=== PATIENT | female | born 1970 | race Caucasian/White ===

== ENCOUNTER 2019-12-12 02:35 | Emergency (ER) | payer MEDICAID, SELFPAY ==
[2019-12-12 02:38] VITALS: BMI 50.8
--- NOTE | 2019-12-12 02:39 | ECG_ITS ---
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 Measurements Intervals [place] Rate: 108 P: 46 IL: 147 QRS: 20 QRSD: 93 T: 37 QT: 307 QTc: 412 Interpretive Statements SINUS TACHYCARDIA NONSPECIFIC ST & T-WAVE ABNORMALITY ABNORMAL RHYTHM ECG Compared to ECG 08/08/2018 19:18:59 T-wave abnormality now present ST (T wave) deviation no longer present Electronically Signed On 12-12-2019 8:45:46 CDT by Paul Harkins M.D. [id number]
--- NOTE | 2019-12-12 02:39 | XRR_ITS ---
PROCEDURE INFORMATION: Exam: XR Chest, 1 View Exam date and time: 12/12/2019 3:34 AM Age: 49 years old Clinical indication: Shortness of breath; Chest pain; Type not specified; Additional info: Cp TECHNIQUE: Imaging protocol: XR of the chest Views: 1 view. COMPARISON: No relevant prior studies available. FINDINGS: Lungs: Unremarkable. No consolidation. Pleural space: Unremarkable. No pleural effusion. No pneumothorax. Heart/Mediastinum: Unremarkable. No cardiomegaly. Bones/joints: Unremarkable. XR/XR chest 1V portable [id number] IMPRESSION: No acute findings.
[2019-12-12 02:42] VITALS: BP 124/67; PULSE 107; RESP 16; TEMP 37; O2SAT 97
[2019-12-12 03:22] LABS: Basophils # 0.1 10^3/uL (0.0-0.1); Basophils % 0.5 %; Eosinophils # 0.1 10^3/uL (0.0-0.8); Eosinophils % 0.8 %; Hematocrit 32.9 % (37.0-47.0); Hemoglobin 9.5 g/dL (11.5-15.3); Lymphocytes % 14.8 %; Mean Corpuscular HGB Conc 28.9 g/dL (30.0-36.0); Mean Corpuscular Volume 76.2 fL (81-99); Monocytes # 0.6 10^3/uL (0.2-0.9); Monocytes % 4.6 %; Neutrophils # 10.7 10^3/uL (1.8-7.7); Neutrophils % 78.6 %; Nucleated Red Blood Cells % 0 %; Platelet Count 422 10^3/cmm (130-400); Red Blood Count 4.32 10^6/uL (4.1-5.3); Red Cell Distribution Width 18.5 % (12.1-15.1); White Blood Count 13.6 10^3/uL (4.0-10.0)
[2019-12-12] MEDS: ondansetron 2 mg/ML SDV 2 mL 4 MG IVP (03:28)
[2019-12-12 03:29] VITALS: RESP 16; O2SAT 99
[2019-12-12] MEDS: morphine 4 mg/mL SDV 1 mL IVP (03:29)
[2019-12-12 03:32] LABS: D Dimer 0.58 ug/mIFEU (0-0.59)
[2019-12-12 03:36] LABS: Alanine Aminotransferase 10 U/L (0-33); Albumin Level 3.9 g/dL (3.5-5.2); Alkaline Phosphatase 119 IU/L (35-105); Anion Gap 18.9 (5-19); Aspartate Amino Transferase 10 U/L (0-32); Blood Urea Nitrogen 9 mg/dL (6-20); Calcium 9.4 mg/dL (8.5-10.5); Carbon Dioxide 25 mmol/L (22-29); Chloride 96 mmol/L (98-107); Creatine Phosphokinase 48 U/L (26-192); Globulin 2.8 g/dL (1.3-4.6); Glomerular Filtration Rate 58.9 mL/min (90-130); Glucose 149 mg/dL (65-115); Osmolality Calculated 281 mOsm/kg (285-295); Potassium 3.9 mmol/L (3.5-5.1); Sodium 136 mmol/L (136-145); Total Bilirubin 0.3 mg/dL (0.15-1.2); Total Protein 6.7 g/dL (6.6-8.7)
[2019-12-12 03:38] LABS: Troponin(5th) Baseline 12 ng/L (0-10)
[2019-12-12 03:39] VITALS: BP 99/73; PULSE 102; RESP 18; O2SAT 96
--- NOTE | 2019-12-12 04:24 | CTR_ITS ---
PROCEDURE INFORMATION: Exam: CT Angiography Chest With Contrast Exam date and time: 12/12/2019 4:26 AM Age: 49 years old Clinical indication: Shortness of breath; Chest pain; Type not specified TECHNIQUE: Imaging protocol: Computed tomographic angiography of the chest with intravenous contrast. 3D rendering: MIP and/or 3D reconstructed images were created by the technologist. Radiation optimization: All CT scans at this facility use at least one of these dose optimization techniques: automated exposure control; mA and/or kV adjustment per patient size (includes targeted exams where dose is matched to clinical indication); or iterative reconstruction. Contrast material: VISI; Contrast volume: 86 ml; Contrast route: INTRAVENOUS (IV); COMPARISON: CR XR chest 1V portable [id number] 12/12/2019 3:24 AM RADIATION DOSE METRICS: Total DLP (mGy-cm): 1337.65 FINDINGS: Pulmonary arteries: Normal. No pulmonary emboli. Aorta: Unremarkable. No aortic aneurysm. No aortic dissection. Thyroid: There is a 7 mm hypoattenuation lesions seen within the left thyroid lobe likely representing a small colloid cyst. Lungs: There is a calcified granuloma seen in the left lung base laterally. A 2nd calcified granuloma seen in the right posterior costophrenic recess medially. Pleural space: Unremarkable. No pneumothorax. No pleural effusion. Heart: Unremarkable. No cardiomegaly. No pericardial effusion. Lymph nodes: Unremarkable. No enlarged lymph nodes. Gallbladder and bile ducts: Status post cholecystectomy. Bones/joints: Unremarkable. No acute fracture. Soft tissues: Unremarkable. CT/CT angio chest PE protcl [id number] IMPRESSION: 1. There is no evidence for pulmonary emboli. 2. There are no acute chest findings. 3. Probable benign 7 mm colloid cyst within the left thyroid lobe. No further workup needed. COMMENTS: Consistent with the [employer]'s Incidental Findings Committee white paper (J Am Vaughn Radiol 2015): In patients aged 35 years and older with an incidental thyroid nodule equal to or greater than 1.[address], MRI or extrathyroidal US, further evaluation with dedicated thyroid US is recommended for patients with normal life expectancy and without comorbidities. For smaller nodules without suspicious features, no further evaluation or follow up is recommended. Radiation Dose CTDIVOL = (mGy): DLP = 1337.65 (mGy-cm)
[2019-12-12 04:32] VITALS: BP 131/63; PULSE 103; RESP 18; O2SAT 96
[2019-12-12] MEDS: iodixanol 320 mg/mL 100mL Btl IV (04:34)
[2019-12-12 05:03] LABS: Troponin 5 2HR 11.86 ng/L (0-10)
[2019-12-12 05:10] LABS: Troponin 5 2HR Delta -0.14 ABS# (0-10)
[2019-12-12] MEDS: sodium chloride 0.9% 1,000 ML 999 ML IV (05:23)
[2019-12-12 05:27] VITALS: BP 117/75; PULSE 98; RESP 16; O2SAT 94
[2019-12-12 06:16] VITALS: BP 111/61; PULSE 86; RESP 18; O2SAT 94
--- NOTE | 2019-12-13 17:22 | W.ED.CHESTPA ---
HPI - Chest Pain General: Chief Complaint: Chest Pain Stated Complaint: CP Time Seen by Provider: 12/12/19 02:39 History of Present Illness: HPI narrative: 49-year-old female. She does have a history of hypertension and diabetes. She has no prior history of coronary disease. She was started on Provigil a couple of days ago by her primary care physician for a complaint of sleeping 20 hours a day. She developed chest pain the next day. She has a fluttering feeling in her chest as well. Some shortness of breath. I believe she has had 3 doses. MD complaint: chest pain and chest discomfort Prior episodes: No Onset: during rest Pain location: substernal and right chest Pain radiation: none, right shoulder and other Quality: tightness and heaviness Relieving factors: nothing Exacerbating factors: nothing Associated symptoms: Reports dyspnea and palpitations; Deny abdominal pain or fever(s) Review of Systems Const: Denies: fever(s) Eyes: Denies: change in vision ENMT: Denies: swelling of lips/tongue, change in hearing or sinus pain Card: Reports: chest pain, palpitations and swelling of feet/ankles; Denies: irregular heart rhythm, edema, dyspnea on exertion or orthopnea Resp: Reports: dyspnea GI: Denies: abdominal pain : Denies: dysuria or hematuria Musc: Reports: back pain; Denies: neck pain or joint warmth Skin/Breast: Denies: rash, pruritus or erythema Neuro: Denies: headache(s), dizziness or vertigo Psych: Reports: anxiety PFSH ED PFSH: Medical History (Updated 12/12/19 @ 05:54 by Kelton Silva DO) Chronic post-traumatic stress disorder Generalized anxiety disorder Hypersomnia Major depressive disorder, recurrent, severe with psychotic symptoms Sleep apnea treated with nocturnal BiPAP Social History (Updated 08/12/19 @ 11:47 by Phuong Centeno LPN) Smoking and tobacco status: never smoked Current gender identity: Female Physical Exam Const: GENERAL APPEARANCE: well developed ORIENTATION/CONSCIOUSNESS: Yes oriented to person, Yes oriented to place and Yes oriented to time HENMT: COMMON NORMALS: normocephalic, external ears normal and Normal external nose present HEAD & SCALP: normocephalic FACE & SINUS: normal facial exam NOSE: Normal external nose present and No nasal discharge present EXTERNAL EAR: Yes external ears normal MOUTH: tongue normal Eye: COMMON NORMALS: Equal, round and reactive pupils present, EOMs intact bilaterally and conjunctivae normal EYELID: eyelids normal CONJUNCTIVA: Yes conjunctivae normal PUPIL: Yes Equal, round and reactive pupils present Neck/C-Spine: GENERAL: No tracheal deviation Chest: COMMONS NORMALS: normal inspection of the chest CHEST: No tenderness Resp: COMMON NORMALS: clear to auscultation bilaterally EFFORT & INSPECTION: No tachypneic, No respiratory distress, No retractions, No uses accessory muscles and No tracheal deviation AUSCULTATION: clear to auscultation bilaterally, no rhonchi, no wheezes and lung sounds not diminished Cardio: COMMON NORMALS: regular rhythm RATE: tachycardic RHYTHM: regular rhythm HEART SOUNDS: no murmurs PERIPHERAL PULSES: radial pulses present GI: INSPECTION: No abdominal distension AUSCULTATION: No Hyperactive bowel sounds present and No Hypoactive bowel sounds present PALPATION: No Guarding due to palpation present (GI) and No Rigid due to palpation PERCUSSION: no dullness to percussion and no tympanic to percussion Neuro: SENSORIUM/ORIENTATION: Yes oriented to person, Yes oriented to place and Yes oriented to time Psych: COMMON NORMALS: mental status grossly normal Skin: COMMON NORMALS: no rashes or lesions noted GENERAL SKIN EXAM: no rashes or lesions noted Course Vital Signs: Vital signs: Vital Signs Temperature 98.6 F 12/12/19 02:42 Pulse Rate 86 12/12/19 06:16 Respiratory Rate 18 12/12/19 06:16 Blood Pressure 111/61 12/12/19 06:16 Pulse Oximetry 94 12/12/19 06:16 MDM - Chest Pain MDM Narrative: Medical decision making narrative: 49-year-old female. She has chest discomfort and some tachycardia. Her hemoglobin is 9.5. Her white blood cell count is 13.6. Creatinine is 1. Sugar looks decently controlled. Her EKG shows sinus tachycardia without acute ST change. Her troponin was 12, but did not elevate at 2 hours. Her d-dimer was negative. Chest x-ray was negative. I believe this is an adverse reaction to her modafinil. She was asked to discontinue the medicine, to see if her chest pain improved. Lab Data: Attestation: I reviewed the patient's lab results. Labs: Lab Results 12/12/19 12/12/19 12/12/19 Range/Units 03:11 03:11 03:11 WBC 13.6 H (4.0-10.0) 10^3/ uL RBC 4.32 (4.1-5.3) 10^6/u L Hgb 9.5 L (11.5-15.3) g/dL Hct 32.9 L (37.0-47.0) % MCV 76.2 L (81-99) fL MCH 22.0 L (28.0-34.0) pg MCHC 28.9 L (30.0-36.0) g/dL RDW 18.5 H (12.1-15.1) % Plt Count 422 H (130-400) 10^3/c mm MPV 10.0 (7.4-10.4) fL Neut % (Auto) 78.6 % Lymph % (Auto) 14.8 % [place] % (Auto) 4.6 % Eos % (Auto) 0.8 % Baso % (Auto) 0.5 % Neut # (Auto) 10.7 H (1.8-7.7) 10^3/u L Lymph # (Auto) 2.0 (0.8-4.8) 10^3/u L [place] # (Auto) 0.6 (0.2-0.9) 10^3/u L Eos # (Auto) 0.1 (0.0-0.8) 10^3/u L Baso # (Auto) 0.1 (0.0-0.1) 10^3/u L Nucleated RBC % (a uto) 0 % Nucleated RBCs # 0.0 /100WBC D-Dimer (0-0.59) ug/mIFE U Sodium 136 (136-145) mmol/L Potassium 3.9 (3.5-5.1) mmol/L Chloride 96 L (98-107) mmol/L Carbon Dioxide 25 (22-29) mmol/L Anion Gap 18.9 (5-19) BUN 9 (6-20) mg/dL Creatinine 1.0 H (0.5-0.9) mg/dL GFR Calculation 58.9 L (90-130) mL/min Glucose 149 H (65-115) mg/dL Calculated Osmolal ity 281 L (285-295) mOsm/k g Calcium 9.4 (8.5-10.5) mg/dL Total Bilirubin 0.3 (0.15-1.2) mg/dL AST 10 (0-32) U/L ALT 10 (0-33) U/L Alkaline Phosphata se 119 H (35-105) IU/L Creatine Kinase 48 (26-192) U/L Troponin T Baselin e 12 H (0-10) ng/L Troponin T 120 Min [place] (0-10) ng/L Delta Troponin T (0-10) ABS# Total Protein 6.7 (6.6-8.7) g/dL Albumin 3.9 (3.5-5.2) g/dL Globulin 2.8 (1.3-4.6) g/dL 12/12/19 12/12/19 Range/Units 03:11 04:32 WBC (4.0-10.0) 10^3/ uL RBC (4.1-5.3) 10^6/u L Hgb (11.5-15.3) g/dL Hct (37.0-47.0) % MCV (81-99) fL MCH (28.0-34.0) pg MCHC (30.0-36.0) g/dL RDW (12.1-15.1) % Plt Count (130-400) 10^3/c mm MPV (7.4-10.4) fL Neut % (Auto) % Lymph % (Auto) % [place] % (Auto) % Eos % (Auto) % Baso % (Auto) % Neut # (Auto) (1.8-7.7) 10^3/u L Lymph # (Auto) (0.8-4.8) 10^3/u L [place] # (Auto) (0.2-0.9) 10^3/u L Eos # (Auto) (0.0-0.8) 10^3/u L Baso # (Auto) (0.0-0.1) 10^3/u L Nucleated RBC % (a uto) % Nucleated RBCs # /100WBC D-Dimer 0.58 (0-0.59) ug/mIFE U Sodium (136-145) mmol/L Potassium (3.5-5.1) mmol/L Chloride (98-107) mmol/L Carbon Dioxide (22-29) mmol/L Anion Gap (5-19) BUN (6-20) mg/dL Creatinine (0.5-0.9) mg/dL GFR Calculation (90-130) mL/min Glucose (65-115) mg/dL Calculated Osmolal ity (285-295) mOsm/k g Calcium (8.5-10.5) mg/dL Total Bilirubin (0.15-1.2) mg/dL AST (0-32) U/L ALT (0-33) U/L Alkaline Phosphata se (35-105) IU/L Creatine Kinase (26-192) U/L Troponin T Baselin e (0-10) ng/L Troponin T 120 Min [place] 11.86 H (0-10) ng/L Delta Troponin T -0.14 L (0-10) ABS# Total Protein (6.6-8.7) g/dL Albumin (3.5-5.2) g/dL Globulin (1.3-4.6) g/dL Discharge Plan Discharge Patient Disposition: Home, Self-Care Clinical Impression: Chest pain Qualifiers: Chest pain type: unspecified Qualified Code(s): R07.9 - Chest pain, unspecified Adverse drug reaction Qualifiers: Encounter type: initial encounter Qualified Code(s): T50.905A - Adverse effect of unspecified drugs, medicaments and biological substances, initial encounter Condition: Stable Prescriptions: No Action hydroxyzine pamoate [Vistaril] 50 mg capsule 50 mg PO .bedtime Qty: 30 RF: 3 venlafaxine [Effexor XR] 150 mg capsule,extended release 24hr 150 mg PO QDAY Qty: 30 RF: 3 modafinil [Provigil] 100 mg tablet 100 mg PO QAM Qty: 30 RF: 1 metformin 1,000 mg 1,000 mg PO BID RF: 0 Abilify 15 mg tablet 10 mg PO DAILY RF: 0 acetaminophen 500 mg 500 mg PO QID PRN (Reason: Pain) RF: 0 amlodipine 10 mg 10 mg PO DAILY RF: 0 atorvastatin 40 mg 40 mg PO BEDTIME RF: 0 baclofen 10 mg 5 mg PO BID RF: 0 bupropion HCl 100 mg 100 mg PO DAILY RF: 0 cetirizine 10 mg 10 mg PO DAILY RF: 0 cholecalciferol (vitamin D3) 1,250 mcg 50,000 units PO DIRECTED RF: 0 diclofenac sodium 1 % 2 g transdermal QID RF: 0 docusate sodium 100 mg 100 mg PO BID RF: 0 epinephrine 0.3 mg 0.3 mg IM PRN PRN (Reason: anaphylaxis) RF: 0 erenumab-aooe 70 mg 70 mg SUBCUT DIRECTED RF: 0 gabapentin 300 mg 600 mg PO TID RF: 0 glimepiride 4 mg 4 mg PO BID RF: 0 hydrochlorothiazide 12.5 mg 25 mg PO QAM RF: 0 Discharge Orders: Discharge Order (Routine); Ordered 12/12/19 Ordered By: Kelton Silva Referrals: Randy Ren [Primary Care Provider] - 4-7 days Discharge Diet: Advance as tolerated Discharge Activity: Increase activity as tolerated Patient Instructions: Chest Pain (ED) Activity Restrictions/Additional Instructions: Consider stopping your new medication, as it may be a cause of your chest discomfort. Return for worsening chest discomfort despite this, worsening shortness of breath, other concerning symptoms including fever or cough Discharge Date/Time: 12/12/19 06:17 Coding Level of Care Code ED Pattern Lease Inspector for Margie Pichardo
== END 2019-12-12 06:17 | disposition home or self-care (01) ==
PROVIDERS: Emergency Provider Emergency Medicine; PCP Family Medicine
DX: R07.9 Chest pain, unspecified (principal); T50.905A Adverse effect of unspecified drugs, medicaments and biological substances, initial encounter
CPT/HCPCS: 12345; 71045; 71275; 80053; 82550; 84484; 85025; 85378; 93005; 96361; 96374; 96375; 99283; 99284; J2270; J2405; J7030; Q9967

== ENCOUNTER → 2020-04-18 12:18 | Outpatient (BNVA) | payer MEDICAID, SELFPAY | PROVIDERS: PCP Family Medicine; Visit Provider Registered Nurse | DX: Z03.89 Encounter for observation for other suspected diseases and conditions ruled out (principal); Z79.899 Other long term (current) drug therapy | CPT/HCPCS: 36415; 80061; 80335; 82306; 82607; 83036; 83540; 84443 ==

== ENCOUNTER → 2020-09-12 11:18 | Outpatient (BNVA) | payer MEDICAID, SELFPAY | PROVIDERS: PCP Family Medicine; Visit Provider Nurse Practitioner Family | DX: N39.0 Urinary tract infection, site not specified (principal) | CPT/HCPCS: 81000 ==

== ENCOUNTER → 2021-03-28 15:30 | Outpatient (BNVA) | payer MEDICAID, SELFPAY | PROVIDERS: PCP Family Medicine; Visit Provider Nurse Practitioner Family | DX: N39.0 Urinary tract infection, site not specified (principal); Z23 Encounter for immunization | CPT/HCPCS: 81000 ==

== ENCOUNTER → 2021-04-19 13:12 | Outpatient (BNVA) | payer MEDICAID, SELFPAY | PROVIDERS: PCP Family Medicine; Visit Provider Registered Nurse | DX: Z79.899 Other long term (current) drug therapy (principal) | CPT/HCPCS: 36415; 80061; 82306; 83036; 83540 ==

== ENCOUNTER → 2021-07-03 15:45 | Outpatient (BNVA) | payer MEDICAID, SELFPAY | PROVIDERS: PCP Family Medicine; Visit Provider Registered Nurse Neonatal Intensive Care | DX: Z20.822 Contact with and (suspected) exposure to COVID-19 (principal) | CPT/HCPCS: 87635 ==

== ENCOUNTER → 2021-09-18 14:00 | Outpatient (BNVA) | payer MEDICAID, SELFPAY | PROVIDERS: PCP Family Medicine; Visit Provider Registered Nurse | DX: Z79.899 Other long term (current) drug therapy (principal) | CPT/HCPCS: 36415; 80053; 80061; 80335; 83036; 84443; 85025 ==

== ENCOUNTER → 2021-10-31 17:15 | Outpatient (BNVA) | payer MEDICAID, SELFPAY | PROVIDERS: PCP Family Medicine; Visit Provider Emergency Medicine | DX: B37.3 Candidiasis of vulva and vagina (principal) | CPT/HCPCS: 81000; 87086 ==

== ENCOUNTER → 2022-03-06 07:51 | Outpatient (BNVA) | payer MEDICAID, SELFPAY | PROVIDERS: PCP Family Medicine; Visit Provider Nurse Practitioner Family | DX: Z20.822 Contact with and (suspected) exposure to COVID-19 (principal) | CPT/HCPCS: 87426 ==

== ENCOUNTER → 2022-03-23 13:34 | Outpatient (BNVA) | payer MEDICAID, SELFPAY | PROVIDERS: PCP Family Medicine; Visit Provider Emergency Medicine | DX: N39.0 Urinary tract infection, site not specified (principal); B37.31 Acute candidiasis of vulva and vagina; R81 Glycosuria; E11.29 Type 2 diabetes mellitus with other diabetic kidney complication; Z79.4 Long term (current) use of insulin | CPT/HCPCS: 81000 ==

== ENCOUNTER → 2022-09-18 17:06 | Outpatient (BNVA) | payer MEDICAID, SELFPAY | PROVIDERS: PCP Nurse Practitioner Family; Visit Provider Emergency Medicine | DX: N89.8 Other specified noninflammatory disorders of vagina (principal); B37.31 Acute candidiasis of vulva and vagina | CPT/HCPCS: 81000 ==

== ENCOUNTER → 2022-12-21 16:02 | Outpatient (BNVA) | payer MEDICAID, SELFPAY | PROVIDERS: PCP Family Medicine; Visit Provider Emergency Medicine | DX: M25.531 Pain in right wrist (principal) | CPT/HCPCS: 73110 ==

== ENCOUNTER → 2023-05-30 14:41 | Outpatient (BNVA) | payer MEDICARE, OTHER, SELFPAY | PROVIDERS: PCP Family Medicine; Visit Provider Psychiatry & Neurology Psychiatry | DX: Z79.899 Other long term (current) drug therapy (principal) | CPT/HCPCS: 80053; 80061; 83036; 84443; 85025 ==

== ENCOUNTER → 2023-07-20 12:25 | Outpatient (BNVA) | payer MEDICARE, MEDICAID, SELFPAY ==
[2023-06-13 14:39] VITALS: BP 143/79; BMI 46.0
== END ==
PROVIDERS: PCP Family Medicine; Visit Provider Nurse Practitioner
DX: R30.0 Dysuria (principal); N39.0 Urinary tract infection, site not specified
CPT/HCPCS: 81000

== ENCOUNTER → 2023-12-22 13:51 | Outpatient (BNVA) | payer MEDICARE, MEDICAID, SELFPAY ==
[2023-06-13 14:39] VITALS: BP 143/79; BMI 46.0
== END ==
PROVIDERS: PCP Family Medicine; Visit Provider Nurse Practitioner
DX: R30.0 Dysuria (principal)
CPT/HCPCS: 81000

== ENCOUNTER → 2024-04-12 13:51 | Outpatient (BNVA) | payer MEDICARE, MEDICAID, SELFPAY ==
[2023-06-13 14:39] VITALS: BP 143/79; BMI 46.0
== END ==
PROVIDERS: PCP Family Medicine; Visit Provider Emergency Medicine
DX: N39.0 Urinary tract infection, site not specified (principal); R30.0 Dysuria
CPT/HCPCS: 81000; 87086

== ENCOUNTER 2024-10-29 20:25 | Inpatient (IN) | payer MEDICARE, MEDICAID, SELFPAY ==
[2023-06-13 14:39] VITALS: BP 143/79; BMI 46.0
[2024-10-29 20:29] VITALS: BP 158/81; PULSE 112; RESP 16; TEMP 36.8; O2SAT 91; BMI 48.2
--- NOTE | 2024-10-29 20:44 | ECG_ITS ---
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: : 1970 Requested By: Kaitlynn Blum Order Number: [id number] Reading MD: VIRIDIANA DELEON Measurements Intervals [place] Rate: 112 P: 55 MO: 161 QRS: -9 QRSD: 94 T: 49 QT: 320 QTc: 437 Interpretive Statements SINUS TACHYCARDIA MINIMAL VOLTAGE CRITERIA FOR LVH, CONSIDER NORMAL VARIANT [MEETS CRITERIA IN ONE OF: R(aVL), S(V1), R(V5), R(V5/V6)+S(V1)] NONSPECIFIC ST & T-WAVE ABNORMALITY ABNORMAL RHYTHM ECG Compared to ECG 12/12/2019 02:56:59 No significant changes Electronically Signed On 10-29-2024 23:26:11 CDT by VIRIDIANA DELEON [email or web address]
--- NOTE | 2024-10-29 20:44 | XRR_ITS ---
PROCEDURE INFORMATION: Exam: XR Chest Exam date and time: 10/29/2024 8:45 PM Age: 53 years old Clinical indication: Pain; Chest pressure; Additional info: Chest pain TECHNIQUE: Imaging protocol: Radiologic exam of the chest. Views: 1 view. COMPARISON: CT angio chest [place] prot [id number] 12/12/2019 4:37 AM FINDINGS: Lungs: Unremarkable. No consolidation. Pleural spaces: Unremarkable. No pleural effusion. No pneumothorax. Heart/Mediastinum: Cardiomegaly is identified. Bones/joints: Unremarkable. XR/XR chest 1V portable [id number] IMPRESSION: There are no acute concerning abnormalities.
[2024-10-29 21:03] LABS: Basophils # 0.1 10^3/uL (0.0-0.1); Basophils % 0.7 %; Eosinophils # 0.3 10^3/uL (0.0-0.8); Hematocrit 36.4 % (36-47); Lymphocytes # 1.2 10^3/uL (0.8-4.8); Lymphocytes % 14.7 %; Mean Corpuscular HGB Conc 29.4 g/dL (30-55); Mean Corpuscular Hemoglobin 23.9 pg (27-33); Mean Corpuscular Volume 81.3 fl (85-98); Monocytes # 0.5 10^3/uL (0.2-0.9); Monocytes % 5.6 %; Neutrophils # 6.11 10^3/uL (1.8-7.7); Neutrophils % 74.5 %; Nucleated Red Blood Cells % 0 %; Platelet Count 281 10^3/cmm (157-399); Red Blood Count 4.48 10^6/uL (3.85-5.65); Red Cell Distribution Width 19.3 % (12.1-15.1); White Blood Count 8.21 10^3/uL (3.29-11.43)
--- NOTE | 2024-10-29 21:09 | PC.NURSE ---
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
--- NOTE | 2024-10-29 21:12 | W.ED.CHESTPA ---
HPI - Chest Pain General: Chief Complaint: Chest Pain Stated Complaint: cp Time Seen by Provider: 10/29/24 20:40 History of Present Illness: 53-year-old female with a history of morbid obesity, hypertension, hyperlipidemia, diabetes and venous stasis who presents emergency room with chest pain and shortness of breath. She says this started about 2 hours ago. She had a pressure in her chest. She says it is gone now. She has been feeling more short of breath lately. On presentation she is tachycardic and require some oxygen. She is not normally on oxygen. No history of COPD or other known lung issues. No coronary disease. No blood thinners. No fevers. No cough. She says she has been much more swollen and was told by a doctor that her lungs were full of fluid. Related Data Home Medications ?Medication ?Instructions ?Recorded ?Confirmed acetaminophen 500 mg PO QID PRN Pain 12/12/19 10/26/24 amlodipine 10 mg PO DAILY 12/12/19 10/26/24 atorvastatin 40 mg PO BEDTIME 12/12/19 10/26/24 baclofen 5 mg PO BID 12/12/19 10/26/24 cetirizine 10 mg PO DAILY 12/12/19 10/26/24 cholecalciferol (vitamin D3) 50,000 units PO DIRECTED 12/12/19 10/26/24 docusate sodium 100 mg PO BID 12/12/19 10/26/24 epinephrine 0.3 mg IM PRN PRN anaphylaxis 12/12/19 10/26/24 gabapentin 600 mg PO TID 12/12/19 10/26/24 glimepiride 4 mg PO BID 12/12/19 10/26/24 hydrochlorothiazide 25 mg PO QAM 12/12/19 10/26/24 metformin 1,000 mg PO BID 12/12/19 10/26/24 azelastine 137 mcg (0.1 %) nasal 2 spray intranasal BID 09/18/21 10/26/24 spray empagliflozin 25 mg tablet 25 mg PO QAM 09/18/21 10/26/24 (Jardiance) linaclotide 290 mcg capsule 290 mcg PO QAM 09/18/21 10/26/24 (Linzess) lisinopril 5 mg tablet 5 mg PO DAILY 09/18/21 10/26/24 montelukast 10 mg tablet 10 mg PO DAILY 09/18/21 10/26/24 (Singulair) pantoprazole 40 mg tablet,delayed 40 mg PO .twice daily 09/18/21 10/26/24 release (Protonix) ropinirole 1 mg tablet 1 mg PO DAILY 09/18/21 10/26/24 insulin aspart U-100 100 unit/mL 6 unit SUBCUT .with meals 05/30/23 10/26/24 (3 mL) subcutaneous pen (Novolog FlexPen U-100 Insulin aspart) insulin glargine 100 unit/mL (3 68 unit SUBCUT DAILY 07/20/23 10/26/24 mL) subcutaneous pen (Lantus Solostar U-100 Insulin) galcanezumab-gnlm 120 mg/mL mg SUBCUT 12/08/23 10/26/24 subcutaneous pen injector (Emgality Pen) Previous Rx's ?Medication ?Instructions ?Recorded meclizine 25 mg tablet (Dramamine 25 mg PO TID PRN motion sickness 10/13/23 (meclizine)) #20 tabs zpqwdgsy-vouyyyvux-nvhzkmsr 3.5 2 drp ophthalmic (eye) Q4H 7 days 12/08/23 mg/mL-10,000 unit/mL-0.1% eye #5 mL drops (Maxitrol) phenazopyridine 200 mg tablet 200 mg PO TID 6 doses #6 tabs 12/22/23 (Pyridium) ciprofloxacin HCl 500 mg tablet 500 mg PO BID 5 days #10 tabs 04/12/24 fluconazole 150 mg tablet 150 mg PO Q3D 2 doses #2 tabs 04/12/24 ondansetron 4 mg disintegrating 4 mg PO Q6H PRN nausea and 04/12/24 tablet vomiting #12 tabs venlafaxine 150 mg 150 mg PO QAM 30 days #30 caps 06/04/24 capsule,extended release 24 hr (Effexor XR) aripiprazole 20 mg tablet See Rx Instructions .Route 08/25/24 .COMPLEX #30 tabs benztropine 1 mg tablet See Rx Instructions .Route 08/25/24 .COMPLEX #60 tabs hydroxyzine pamoate 50 mg capsule See Rx Instructions .Route 08/25/24 .COMPLEX #30 caps nortriptyline 25 mg capsule See Rx Instructions .Route 08/25/24 .COMPLEX #90 caps Allergies Allergy/AdvReac Type Severity Reaction Status Date / Time methocarbamol Allergy Intermediate itching Verified 04/12/24 13:37 Sulfa (Sulfonamide Allergy Unknown Unknown Verified 04/12/24 13:37 Antibiotics) Review of Systems Narrative: Constitutional symptoms: Negative except as documented in HPI. Skin symptoms: Negative except as documented in HPI. Eye symptoms: Negative except as documented in HPI. ENMT symptoms: Negative except as documented in HPI. Respiratory symptoms: Negative except as documented in HPI. Cardiovascular symptoms: Negative except as documented in HPI. Gastrointestinal symptoms: Negative except as documented in HPI. Genitourinary symptoms: Negative except as documented in HPI. Musculoskeletal symptoms: Negative except as documented in HPI. Neurologic symptoms: Negative except as documented in HPI. Psychiatric symptoms: Negative except as documented in HPI. Endocrine symptoms: Negative except as documented in HPI. PFS ED PFSH: Medical History Diabetes Psychiatric care Medication management Sleep apnea treated with nocturnal BiPAP Hypersomnia Major depressive disorder, recurrent, severe with psychotic symptoms Chronic post-traumatic stress disorder Generalized anxiety disorder Social History Smoking and tobacco/nicotine status: never used tobacco/nicotine Quit status (tobacco/nicotine): has quit using Former quit date comment: She smoked 1/2 PPD for about 2 years Current gender identity: Female Female Reproductive History: Spontaneous abortions: No Physical Exam Narrative: EXAM NARRATIVE: General: Alert, no acute distress. Skin: Warm, dry. Head: Normocephalic, atraumatic. Neck: Supple, trachea midline. Eye: Extraocular movements are intact. Ears, nose, mouth and throat: mucosa moist. Cardiovascular: Regular, tachycardic, Normal peripheral perfusion. Respiratory: Lungs are clear to auscultation, respirations are non-labored, breath sounds are equal, Symmetrical chest wall expansion. Gastrointestinal: Soft, Nontender, Non distended Musculoskeletal: Normal ROM, no deformity. Neurological: Alert and oriented, No focal neurological deficit observed. Psychiatric: Cooperative, appropriate mood & affect. Course Vital Signs: Vital signs: Vital Signs Temperature 98.2 F 10/29/24 20:29 Pulse Rate 109 H 10/29/24 21:37 Respiratory Rate 21 H 10/29/24 21:37 Blood Pressure 152/73 10/29/24 21:37 Pulse Oximetry 90 10/29/24 21:37 Oxygen Delivery Me thod Nasal Cannula 10/29/24 21:37 Oxygen Flow Rate 2 10/29/24 21:37 MDM - Chest Pain Medical Decision Making Differential diagnosis for patient with chest pain includes but is not limited to and based on the above HPI, review of systems and physical exam: Pneumonia. unstable angina. angina. Acute coronary syndrome / CA. Pulmonary embolism. Costochondritis / musculoskeletal. Pleurisy. Pericarditis. Esophageal spasm. Pancreatis. Cholecystitis. Orders placed to evaluate differential diagnosis based on the above differential, HPI and physical exam EKG: Time 2033. Rate 112. Sinus tachycardia, No ST-T changes, no ectopy, normal GA & QRS intervals, This was reviewed and interpreted by myself the ER physician at 2037 Chest x-ray: No acute process. No infiltrate. No pneumothorax. This was reviewed and interpreted by myself the emergency room physician. I also reviewed the radiology report. Lab Review: Laboratory results were reviewed and interpreted by myself the emergency room physician. No leukocytosis. No anemia. Mean and creatinine are 19 and 1 not overtly abnormal. Her blood glucose is little high at 276. proBNP is only 200. No comparisons. D-dimer was negative. No pulmonary embolism or DVT. So I did not order a CTA or an ultrasound of the lower extremities. CT of the chest without contrast: Consolidation of the right lower lobe of lung consistent with pneumonia. Patient does report excessive cough recently. No fevers. She did have some chest pain. This was reviewed and interpreted by myself the emergency room physician. I also reviewed the radiology report. I reviewed the patient's medical record. Reexamination: Patient is still satting in the low 90s and around 90% on 2 L nasal cannula. No altered mental status. No increased work of breathing at this time. Consultation: I spoke with Dr. Romero who agrees to admission. Assessment and plan: Pneumonia Hypoxemia Lower extremity swelling/edema ?Patient currently stable on 2 L nasal cannula. 80 mg IV Lasix. IV Rocephin and azithromycin. -I discussed the patient with the hospitalist on-call who is admitting the patient. - Discussed findings and plan with patient. Answered any questions. - All laboratory values were reviewed and interpreted personally by myself, the ER physician - All imaging was reviewed and interpreted personally by myself, the ER physician. - Evaluation and treatment of this problem were appropriate in the emergency setting Lab Data 10/29/24 20:50 10/29/24 20:50 Radiology Impressions Chest X-Ray 10/29/24 20:44 IMPRESSION: There are no acute concerning abnormalities. Chest CT 10/29/24 22:14 IMPRESSION: There is consolidation in the right lower lobe of the lung consistent with pneumonia. Post obstructive pneumonitis secondary to right thoracic hilar adenopathy would also be a consideration. Follow-up is recommended to ensure expected resolution. Laboratory Results WBC 8.21 10^3/uL (3.29-11.43) 10/29/24 20:50 RBC 4.48 10^6/uL (3.85-5.65) 10/29/24 20:50 Hgb 10.70 g/dL (11.27-16.99) L 10/29/24 20:50 Hct 36.4 % (36-47) 10/29/24 20:50 MCV 81.3 fl (85-98) L 10/29/24 20:50 MCH 23.9 pg (27-33) L 10/29/24 20:50 MCHC 29.4 g/dL (30-55) L 10/29/24 20:50 RDW 19.3 % (12.1-15.1) H 10/29/24 20:50 Plt Count 281 10^3/cmm (157-399) 10/29/24 20:50 MPV 10.0 fL (7.4-10.4) 10/29/24 20:50 Neut % (Auto) 74.5 % 10/29/24 20:50 Lymph % (Auto) 14.7 % 10/29/24 20:50 Major % (Auto) 5.6 % 10/29/24 20:50 Eos % (Auto) 4.0 % 10/29/24 20:50 Baso % (Auto) 0.7 % 10/29/24 20:50 Neut # (Auto) 6.11 10^3/uL (1.8-7.7) 10/29/24 20:50 Lymph # (Auto) 1.2 10^3/uL (0.8-4.8) 10/29/24 20:50 Major # (Auto) 0.5 10^3/uL (0.2-0.9) 10/29/24 20:50 Eos # (Auto) 0.3 10^3/uL (0.0-0.8) 10/29/24 20:50 Baso # (Auto) 0.1 10^3/uL (0.0-0.1) 10/29/24 20:50 Nucleated RBC % (auto) 0 % 10/29/24 20:50 Nucleated RBCs # 0.0 /100WBC 10/29/24 20:50 D-Dimer 0.49 ug/mLFEU (0-0.59) 10/29/24 20:50 Specimen Type Arterial 10/29/24 21: Sample Site Radial, right 10/29/24 21: ABG pH 7.41 (7.35-7.45) 10/29/24: ABG pCO2 46.8 mmHg (35-45) H 10/29/24: ABG pO2 63.3 mmHg (80.0-100.0) L 10/29/24: ABG HCO3 29.3 mmol/L (22-26) H 10/29/24: ABG O2 Saturation 93.0 10/29/24: ABG Base Excess 3.9 mmol/L (-2.0-2.0) H 10/29/24 21: Yves Test Pos 10/29/24: A-a O2 Gradient 3.6 mmHg (5-10) L 10/29/24: Hematocrit 33.2 % (37-47) L 10/29/24 21: Hgb O2 Saturation 91.2 % (95-100) L 10/29/24: Carboxyhemoglobin 1.7 %THgb (0.4-20.1) 10/29/24: Methemoglobin 0.3 % (0.4-1.5) L 10/29/24: Total Hemoglobin 10.8 g/dL (12-16) L 10/29/24: Sodium 141.0 mmol/L (131-143) 10/29/24: Potassium 3.9 mmol/L (3.5-5.0) 10/29/24 21:29 Glucose 280.0 mg/dL (70-115) H 10/29/24 21:29 Ionized Calcium 1.2 mmol/L (1.1-1.4) 10/29/24 21:29 O2 Delivery Device Nc 10/29/24 21: O2 Liters/Min 2.0 % 10/29/24 21:29 Tracer Bullet Charging Machine Operator ID [email or web address] 10/29/24 21:29 Sodium 137 mmol/L (136-145) 10/29/24 20:50 Potassium 4.1 mmol/L (3.5-5.1) 10/29/24 20:50 Chloride 99 mmol/L (98-107) 10/29/24 20:50 Carbon Dioxide 25 mmol/L (22-29) 10/29/24 20:50 Anion Gap 17.1 (5-19) 10/29/24 20:50 BUN 19 mg/dL (6-20) 10/29/24 20:50 Creatinine 1.0 mg/dL (0.5-0.9) H 10/29/24 20:50 GFR Calculation 58.0 mL/min (90-130) L 10/29/24 20:50 Glucose 276 mg/dL (65-115) H 10/29/24 20:50 Calculated Osmolality 296 mOsm/kg (285-295) H 10/29/24 20:50 Lactic Acid 1.7 mmol/L (0.5-2.2) 10/29/24 20:50 Calcium 8.9 mg/dL (8.5-10.5) 10/29/24 20:50 Total Bilirubin 0.3 mg/dL (0.15-1.2) 10/29/24 20:50 AST 47 U/L (0-32) H 10/29/24 20:50 ALT 38 U/L (0-33) H 10/29/24 20:50 Alkaline Phosphatase 187 U/L (35-105) H 10/29/24 20:50 Troponin T Baseline 12 ng/L (0-10) H 10/29/24 20:50 Troponin T 120 Minute 12.67 ng/L (0-10) H 10/29/24 23:02 Delta Troponin T 0.67 ABS# (0-10) 10/29/24 23:02 NT-Pro-B Natriuret Pep 201 pg/mL (0-125) H 10/29/24 20:50 Total Protein 7.8 g/dL (6.6-8.7) 10/29/24 20:50 Albumin 3.6 g/dL (3.5-5.2) 10/29/24 20:50 Globulin 4.2 g/dL (1.3-4.6) 10/29/24 20:50 Procalcitonin 0.20 ng/mL (0-0.5) 10/29/24 20:50 All radiology interpretation(s) finalized by discharge Discharge Plan Discharge Condition: Stable Prescriptions: No Action azelastine 137 mcg (0.1 %) aerosol,spray 2 spray intranasal BID Rx Instructions: administer into each nostril Jardiance 25 mg tablet 25 mg PO QAM Linzess 290 mcg capsule 290 mcg PO QAM lisinopril 5 mg tablet 5 mg PO DAILY montelukast [Singulair] 10 mg tablet 10 mg PO DAILY pantoprazole [Protonix] 40 mg tablet,delayed release (DR/EC) 40 mg PO .twice daily ropinirole 1 mg tablet 1 mg PO DAILY Rx Instructions: Take 1 & 1/2 to 2 tablets by mouth 1 to 2 hours before bedtime Lantus Solostar U-100 Insulin 100 unit/mL (3 mL) insulin pen 68 unit SUBCUT DAILY insulin aspart U-100 [Novolog FlexPen U-100 Insulin] 100 unit/mL (3 mL) insulin pen 6 unit SUBCUT .with meals Rx Instructions: Up to 20 units meclizine [Dramamine (meclizine)] 25 mg tablet 25 mg PO TID PRN (Reason: motion sickness) Qty: 20 0RF Emgality Pen 120 mg/mL pen injector SUBCUT neomycin-polymyxin B-dexameth [Maxitrol] 3.5mg/mL-10,000 unit/mL-0.1 % drops,suspension 2 drp ophthalmic (eye) Q4H 7 Days Qty: 5 0RF phenazopyridine [Pyridium] 200 mg tablet 200 mg PO TID Qty: 6 0RF ciprofloxacin HCl 500 mg tablet 500 mg PO BID 5 Days Qty: 10 0RF fluconazole 150 mg tablet 150 mg PO Q3D 0 Days Qty: 2 1RF Rx Instructions: may repeat second dose 72 hrs after first dose if symptoms persist ondansetron 4 mg tablet,disintegrating 4 mg PO Q6H PRN (Reason: nausea and vomiting) Qty: 12 0RF Rx Instructions: 340b please venlafaxine [Effexor XR] 150 mg capsule,extended release 24hr 150 mg PO QAM 30 Days Qty: 30 5RF benztropine 1 mg tablet See Rx Instructions .ROUTE .COMPLEX Qty: 60 5RF Dose Instruction: TAKE 1 TABLET BY MOUTH TWICE A DAY. Rx Instructions: TAKE 1 TABLET BY MOUTH TWICE A DAY. hydroxyzine pamoate 50 mg capsule See Rx Instructions .ROUTE .COMPLEX Qty: 30 5RF Dose Instruction: TAKE 1 CAPSULE BY MOUTH AT BEDTIME Rx Instructions: TAKE 1 CAPSULE BY MOUTH AT BEDTIME nortriptyline 25 mg capsule See Rx Instructions .ROUTE .COMPLEX Qty: 90 5RF Dose Instruction: TAKE 3 CAPSULES BY MOUTH AT BEDTIME. Rx Instructions: TAKE 3 CAPSULES BY MOUTH AT BEDTIME. aripiprazole 20 mg tablet See Rx Instructions .ROUTE .COMPLEX Qty: 30 5RF Dose Instruction: TAKE 1 TABLET BY MOUTH DAILY Rx Instructions: TAKE 1 TABLET BY MOUTH DAILY metformin 1,000 mg 1,000 mg PO BID acetaminophen 500 mg 500 mg PO QID PRN (Reason: Pain) amlodipine 10 mg 10 mg PO DAILY atorvastatin 40 mg 40 mg PO BEDTIME baclofen 10 mg 5 mg PO BID cetirizine 10 mg 10 mg PO DAILY cholecalciferol (vitamin D3) 1,250 mcg 50,000 units PO DIRECTED docusate sodium 100 mg 100 mg PO BID epinephrine 0.3 mg 0.3 mg IM PRN PRN (Reason: anaphylaxis) gabapentin 300 mg 600 mg PO TID glimepiride 4 mg 4 mg PO BID hydrochlorothiazide 12.5 mg 25 mg PO QAM Referrals: Andrea Ren DO [Primary Care Provider] Print Language: Ethiopian Coding Level of Care Code ED [employer] for Margie Pichardo
[2024-10-29 21:17] LABS: D Dimer 0.49 ug/mLFEU (0-0.59)
[2024-10-29 21:24] LABS: Lactic Sepsis W/Reflex 1.7 mmol/L (0.5-2.2)
[2024-10-29 21:25] LABS: Troponin(5th) Baseline 12 ng/L (0-10)
[2024-10-29 21:36] LABS: NT Pro B Type Natriuretic Pept 201 pg/mL (0-125)
[2024-10-29 21:37] VITALS: BP 152/73; PULSE 109; RESP 21; O2SAT 90
[2024-10-29 21:40] LABS: ABG PCO2 46.8 mmHg (35-45); ABG PH Result 7.41 (7.35-7.45); Alveolar-Arterial Oxygen Gradi 3.6 mmHg (5-10); Arterial Blood Gas Hematocrit 33.2 % (37-47); Base Excess ABG 3.9 mmol/L (-2.0-2.0); Blood Gas Allen Test Pos; Blood Gas Sample Site Radial, right; Blood Gas Sample Type Arterial; Carboxyhemoglobin 1.7 %THgb (0.4-20.1); HCO3 ABG 29.3 mmol/L (22-26); HGB O2 Sat 91.2 % (95-100); Ionized Calcium Level - ABG 1.2 mmol/L (1.1-1.4); Methemoglobin 0.3 % (0.4-1.5); Oxygen Device NC; PO2 ABG 63.3 mmHg (80.0-100.0); Potassium Level - ABG 3.9 mmol/L (3.5-5.0); Total Hemoglobin 10.8 g/dL (12-16)
[2024-10-29 21:47] LABS: Alanine Aminotransferase 38 U/L (0-33); Albumin Level 3.6 g/dL (3.5-5.2); Alkaline Phosphatase 187 U/L (35-105); Anion Gap 17.1 (5-19); Aspartate Amino Transferase 47 U/L (0-32); Blood Urea Nitrogen 19 mg/dL (6-20); Calcium 8.9 mg/dL (8.5-10.5); Carbon Dioxide 25 mmol/L (22-29); Chloride 99 mmol/L (98-107); Creatinine Clr Calc Pharmacy 92.2625; Globulin 4.2 g/dL (1.3-4.6); Glucose 276 mg/dL (65-115); Osmolality Calculated 296 mOsm/kg (285-295); Potassium 4.1 mmol/L (3.5-5.1); Sodium 137 mmol/L (136-145); Total Bilirubin 0.3 mg/dL (0.15-1.2); Total Protein 7.8 g/dL (6.6-8.7)
--- NOTE | 2024-10-29 22:14 | CTR_ITS ---
PROCEDURE INFORMATION: Exam: CT Chest Without Contrast; Diagnostic Exam date and time: 10/29/2024 10:24 PM Age: 53 years old Clinical indication: Pain; Cough and shortness of breath; Chest pressure; Additional info: SOB, chest pain TECHNIQUE: Imaging protocol: Diagnostic computed tomography of the chest without contrast. Radiation optimization: All CT scans at this facility use at least one of these dose optimization techniques: automated exposure control; mA and/or kV adjustment per patient size (includes targeted exams where dose is matched to clinical indication); or iterative reconstruction. COMPARISON: CR (CHEST, ) 10/29/2024 8:45 PM RADIATION DOSE METRICS: Total DLP (mGy-cm): 777.5 FINDINGS: Lungs: There is consolidation in the right lower lobe of the lung with air bronchograms. There is a calcified granuloma in the left lower lobe of the lung. Pleural spaces: Unremarkable. No pneumothorax. No pleural effusion. Heart: No coronary artery calcification. No cardiomegaly. No pericardial effusion. Mediastinal space: There is calcification in the prevascular, right paratracheal and subcarinal mediastinum. There is also calcification in the bilateral thoracic hilum. Lymph nodes: Right thoracic hilar adenopathy measuring 2.3 cm is suspected. Vasculature: Unremarkable. No aortic aneurysm. Bones/joints: Degenerative change is identified in the spine. There is no evidence for acute fracture or malalignment. Soft tissues: Unremarkable. CT/CT chest wo con [id number] IMPRESSION: There is consolidation in the right lower lobe of the lung consistent with pneumonia. Post obstructive pneumonitis secondary to right thoracic hilar adenopathy would also be a consideration. Follow-up is recommended to ensure expected resolution.
[2024-10-29] MEDS: FUROsemide 10 mg/mL SDV 10mL 80 MG IVP (22:21)
--- NOTE | 2024-10-29 22:44 | ECG_ITS ---
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1970 Requested By: Kaitlynn Blum Order Number: [id number] Reading MD: VIRIDIANA DELEON Measurements Intervals [place] Rate: 109 P: 76 CO: 161 QRS: 69 QRSD: 92 T: 19 QT: 334 QTc: 451 Interpretive Statements SINUS TACHYCARDIA LOW QRS VOLTAGE IN PRECORDIAL LEADS [QRS DEFLECTION < 1.0 mV IN CHEST LEADS] MODERATE ST DEPRESSION [0.05+ mV ST DEPRESSION] Compared to ECG 10/29/2024 20:34:11 Low QRS voltage now present ST (T wave) deviation now present T-wave abnormality no longer present Electronically Signed On 10-29-2024 23:36:13 CDT by VIRIDIANA DELEON [id number] [id number]
[2024-10-29 23:31] LABS: Troponin 5 2HR 12.67 ng/L (0-10); Troponin 5 2HR Delta 0.67 ABS# (0-10)
--- NOTE | 2024-10-29 23:44 | PM.HP ---
Providers/Chief Complaint Admitting Physician: Carole Romero MD Primary Care Provider: Andrea Ren DO Chief Complaint: cp History of Present Illness Watch Repair Technician: she sees ELSA Donovan in [facility] . It Project Lead: Maya Figueroa is a 53 yo woman w/ metabolic syndrome and VIVIAN on BiPAP, who presented to the ED on 10/29/2024 with complaints of progressive dyspnea, chest pain, and nonproductive cough. She states that starting Saturday night, she was just sitting at home watching TV, when she started having non-radiating, non pleuritic substernal CP. With the chest pain, she developed a non-productive cough. She went to [facility] in [place], where tests were done in the ED and she was told that her lungs were full of fluid and that she needed an ECHO. She was given Lasix and an antibiotic. She believes that it was Omnicef. She states that the CP lasted 4 hours. SHe states that since Saturday, she has had the CP intermittently that is 4-5/10 and resolves to a 2-3/10 after approx an hour. She could not lie down to sleep because of the chest pain. Sitting straight up made it better. Today, her non-productive cough was much worse; she felt increasingly dyspneic, and her chest pain was worse at a 6/10. She checked her O2 sat and it was 83% on RA w/ a HR >100s and a BP of 153/71mmHg. She had a post-hospitalization follow up So, he went to her PCP's nurse practitioner, where her dose of Lasix was doubled and an ECHO was ordered. She says that took the dose of Lasix but she did not urinate much with it. Not feeling better, she presented to the ED. She endorses fatigue, generalized weakness, wheezing, transient double vision, 3 episodes watery diarrhea on 10/28/2024. She denies any fever, chills, abd pain, n/v. She has had an EGD/Colonoscopy. Her colonoscopy on 06/15/2024 In the ED, she was tachycardic and hypoxic requiring 2 L NC. Her labs showed no leukocytosis, but showed transaminitis. Her EKG showed sinus tachycardia with no ST changes and QTc of 451. Her Trop T was minimally elevated. She had CP, so they placed nitro on her chest. A CT chest was done that showed R. LL pneumonia vs R. thoracic hilar adenopathy. On arrival to the floor, she had CP that now started to radiate to the R. upper chest wall twice, and each episode of CP resolved on it's own. With the chest pain, she also became increasingly hypoxemic and her nasal cannula was increased from 2-4 L NC. She was given Rocephin 1 g, azithromycin 500 mg, and Lasix 80 mg IVP x 1. Review of Systems Const: Reports: malaise; Denies: fever(s) or chills Eyes: Reports: blurry vision Card: Reports: chest pain, palpitations, lightheadedness and pre-syncope; Denies: syncope Resp: Reports: dyspnea, non-productive cough and wheezing GI: Reports: nausea and diarrhea; Denies: abdominal pain or vomiting : Denies: difficulty voiding, dysuria or hematuria Musc: Reports: joint pain (chronic) and other (chronic myalgia) Skin/Breast: Denies: rash or new lesions Neuro: Reports: headache(s); Denies: dizziness Psych: Reports: anxiety and depression; Denies: suicidal ideation or homicidal ideation Endo: Reports: heat intolerance; Denies: cold intolerance Ashkan/Lymph: Reports: easy bruising; Denies: easy bleeding All/Imm: Denies: food intolerance Medications/Allergies Home Medications ?Medication ?Instructions ?Recorded ?Confirmed ?Last Taken ?Type acetaminophen 500 mg tablet 500 mg PO QID PRN Pain 12/12/19 10/30/24 Unknown History amlodipine 10 mg tablet 10 mg PO DAILY 12/12/19 10/30/24 10/29/24 08:00 History atorvastatin 40 mg PO BEDTIME 12/12/19 10/30/24 10/28/24 20:00 History baclofen 5 mg PO BID 12/12/19 10/30/24 10/29/24 08:00 History cetirizine 10 mg tablet 10 mg PO DAILY 12/12/19 10/30/24 10/29/24 08:00 History docusate sodium 100 mg PO BID 12/12/19 10/30/24 10/29/24 08:00 History epinephrine 0.3 mg IM PRN PRN anaphylaxis 12/12/19 10/30/24 Unknown History gabapentin 600 mg tablet 600 mg PO TID 12/12/19 10/30/24 10/29/24 08:00 History glimepiride 4 mg PO BID 12/12/19 10/30/24 10/29/24 08:00 History hydrochlorothiazide 25 mg PO QAM 12/12/19 10/30/24 12/11/19 History metformin 1,000 mg PO BID 12/12/19 10/30/24 10/29/24 08:00 History empagliflozin 25 mg tablet 25 mg PO QAM 09/18/21 10/30/24 10/29/24 08:00 History (Jardiance) linaclotide 290 mcg capsule 290 mcg PO QAM 09/18/21 10/30/24 10/29/24 08:00 History (Linzess) lisinopril 5 mg tablet 5 mg PO DAILY 09/18/21 10/30/24 10/29/24 08:00 History montelukast 10 mg tablet 10 mg PO DAILY 09/18/21 10/30/24 10/29/24 08:00 History (Singulair) pantoprazole 40 mg tablet,delayed 40 mg PO BID 09/18/21 10/30/24 10/29/24 08:00 History release (Protonix) ropinirole 1 mg tablet 2 mg PO BEDTIME 09/18/21 10/30/24 10/28/24 20:00 History insulin glargine 100 unit/mL (3 85 unit SUBCUT DAILY 07/20/23 10/30/24 10/29/24 08:00 History mL) subcutaneous pen (Lantus Solostar U-100 Insulin) meclizine 25 mg tablet (Dramamine 25 mg PO TID PRN motion sickness 10/13/23 10/30/24 Unknown Rx (meclizine)) #20 tabs ondansetron 4 mg disintegrating 4 mg PO Q6H PRN nausea and 04/12/24 10/30/24 10/29/24 08:00 Rx tablet vomiting #12 tabs venlafaxine 150 mg 150 mg PO QAM 30 days #30 caps 06/04/24 10/30/24 10/29/24 08:00 Rx capsule,extended release 24 hr (Effexor XR) aripiprazole 20 mg tablet 20 mg PO DAILY 10/30/24 10/30/24 10/29/24 08:00 History benztropine 1 mg tablet 1 mg PO BID 10/30/24 10/30/24 10/29/24 08:00 History cholecalciferol (vitamin D3) 10 See Rx Instructions .Route .COMPLEX 10/30/24 10/30/24 10/29/24 08:00 History mcg (400 unit) tablet hydroxyzine pamoate 50 mg capsule 50 mg PO BEDTIME 10/30/24 10/30/24 10/28/24 20:00 History insulin lispro 100 unit/mL See Rx Instructions .Route .COMPLEX 10/30/24 10/30/24 10/29/24 08:00 History subcutaneous pen (Humalog KwikPen (U-100) Insulin) nortriptyline 25 mg capsule 75 mg PO BEDTIME 10/30/24 10/30/24 10/28/24 20:00 History tirzepatide 15 mg/0.5 mL 15 mg SUBCUT Q7D 10/30/24 10/30/24 Unknown History subcutaneous pen injector (Mounjaro) venlafaxine 75 mg capsule,extended 75 mg PO DAILY 10/30/24 10/30/24 10/29/24 08:00 History release 24 hr Allergies Allergy/AdvReac Type Severity Reaction Status Date / Time methocarbamol Allergy Intermediate itching Verified 04/12/24 13:37 Sulfa (Sulfonamide Allergy Unknown Unknown Verified 04/12/24 13:37 Antibiotics) tramadol Allergy ADR-Headach Verified 10/30/24 05:37 e PFSH Acute PFSH: Medical History (Updated 10/30/24 @ 08:44 by Carole Romero MD) Diabetes Psychiatric care Medication management Sleep apnea treated with nocturnal BiPAP Hypersomnia Major depressive disorder, recurrent, severe with psychotic symptoms Chronic post-traumatic stress disorder Generalized anxiety disorder Surgical History (Updated 10/30/24 @ 05:41 by Carole Romero MD) History of back surgery due to a herniated disk. Hx laparoscopic cholecystectomy History of hysterectomy with bilateral oophorectomy due to menorrhagia H/O shoulder surgery due to Frozen shoulder Family History (Updated 10/30/24 @ 05:42 by Carole Romero MD) Father Lung cancer Sister Multiple myeloma Mother Heart disease Social History (Updated 10/30/24 @ 05:43 by Carole Romero MD) Smoking and tobacco/nicotine status: former use of tobacco/nicotine Quit status (tobacco/nicotine): has quit using Former quit date comment: She smoked 1/2 PPD for about 6 months Alcohol intake: never Substance/Drug Use: never Current gender identity: Female Female Reproductive History: Spontaneous abortions: No Vitals/I&O/Wt Last Vital Signs Temp 98.2 F 10/29/24 20:29 Pulse 109 H 10/29/24 21:37 Resp 21 H 10/29/24 21:37 BP 152/73 10/29/24 21:37 Pulse Ox 90 10/29/24 21:37 O2 Del Method Nasal Cannula 10/29/24 21:37 O2 Flow Rate 2 10/29/24 21:37 10/29/24 10/29/24 10/30/24 14:59 22:59 06:59 Intake Total 0 / 0 Balance 0 / 0 Weight last 48 hrs Weight 135.624 kg Physical Exam Const: GENERAL APPEARANCE: cooperative; not comfortable NUTRITIONAL APPEARANCE: overweight ORIENTATION/CONSCIOUSNESS: Yes awake, Yes oriented to person, Yes oriented to place and Yes oriented to time HENMT: HEAD & SCALP: normocephalic and atraumatic NOSE: Normal external nose present EXTERNAL EAR: Yes external ears normal MOUTH: Normal oral and palatal mucosa present THROAT: posterior oropharynx normal Eye: CONJUNCTIVA: Yes conjunctivae normal PUPIL: Yes Equal, round and reactive pupils present EOM: No EOM abnormal Neck/C-Spine: GENERAL: Yes normal visual inspection and Yes trachea midline THYROID: Thyroid normal CAROTIDS: No bruit CERVICAL SPINE: Yes cervical ROM normal Lymph: OTHER: No cervical or supra clavicular LAD Resp: OTHER: Crackles in bilateral lower lung lobes Cardio: OTHER: RRR, no m/r/g or clicks. 2+ DP or radial pulses bilaterally. GI: OTHER: Large round abdomen, BS+, NT, ND, no guarding, no rigidity, no acute rebound tenderness or hepatosplenomegaly. Extremity: GENERAL: No cyanosis and No deformity OTHER: She has mild edema in her bilateral lower extremities, but she does not have pitting edema. Neuro: CRANIAL NERVES: Yes CN normal except as noted SPEECH: speech normal SENSORY EXAM: No sensory level loss detected MOTOR EXAM: 5/5 motor strength present throughout Psych: APPEARANCE: Yes grossly normal and Yes well kempt ATTITUDE: Yes calm and Yes engaged ACTIVITY/MOTOR BEHAVIOR: Yes appropriate eye contact SPEECH: Yes normal speech MOOD & AFFECT: Yes euthymic mood THOUGHT PROCESS: Normal thought process present THOUGHT CONTENT: Yes Normal thought content present ATTENTION/CONCENTRATION: Yes attention grossly intact Skin: GENERAL SKIN EXAM: no rashes or lesions noted Data 10/30/24 06:06 10/30/24 06:06 Micro: Microbiology 10/29/24 20:55 Blood Culture - Preliminary Blood SPECIMEN COLLECTED 10/29/24 20:50 Blood Culture - Preliminary Blood SPECIMEN COLLECTED A&P Assessment and plan (1) Acute hypoxic respiratory failure: (2) Sepsis: (3) Right lower lobe pneumonia: (4) Chest pain: Plan Maya Figueroa is a 53 yo woman w/ metabolic syndrome and VIVIAN on BiPAP, who presented to the ED on 10/29/2024 with complaints of progressive dyspnea, chest pain, and nonproductive cough. #Acute hypoxic hypercapneic respiratory failure: Wean O2 as tolerated. - Unclear etiology. I am not convinced that she has L. sided CHF. She may have pulmonary HTN. F/u ECHO. #Sepsis due to R. LL pneumonia # R. LL pneumonia vs R. thoracic hilar adenopathy - S/p Ceftriaxone, Azithromycin and 80mg IV Lasix. - F/u BCx, Respiratory pathogen panel - Zosyn and azithromycin initiated. Ordered NS IVF at 75cc/hr. #Chest pain: Consulted the Member Service Specialist who will see her on 10/30/2024 #Chronic anemia: She states that she has been evaluated by GI, with an EGD and a colonoscopy, with no clear answers as to why she is chronically anemic. She states that she last had a colonoscopy on 06/15/2024 that resulted in removal of non-cancerous polyps. - Defer work up to Day hospitalist. She will benefit from evaluation at some point b/c her sister has Multiple Myeloma. #IDDM2: Started Insulin glargine 40 units w/ low dose SSI #VIVIAN on BiPAP #HTN #HLD #JOSE E/MDD/PTSD #Insomnia #GERD #RLS - Meds held. Currently NPO #Migraine headache #hx of chronic UTI and chronic vaginal candidiasis - according the patient, it is due to being on Jardiance. DVT ppx: Lovenox PDMP PDMP Reviewed: Not Reviewed Attestations Medical Necessity Statement*: The patient needs to be hospitalized for greater than 2 midnights for dyspnea, Coding Level of Care Code 20008 High Time for a total of 80 minutes, includes reviewing past or interval history, examining/interviewing patient, placing orders, counseling patient/family/other support, updating patient/family/other support, discussing plan of care with staff, communicating with other healthcare providers and coordinating care Diagnoses Acute hypoxic respiratory failure J96.01 Sepsis A41.9 Right lower lobe pneumonia J18.9 Chest pain R07.9 Chest pain type: unspecified
[2024-10-29] MEDS: cefTRIAXone 1,000 mg SDV 1000 MG IVP (23:58)
[2024-10-30] VITALS (19 sets, daily range): BP systolic 117–159; BP diastolic 55–75; PULSE 100–117; RESP 16–24; TEMP 36.6–37.2; O2SAT 90–99; BMI 48.0
--- NOTE | 2024-10-30 02:44 | ECG_ITS ---
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 Measurements Intervals [place] Rate: 109 P: 65 [place]: 161 QRS: 15 QRSD: 97 T: 33 QT: 331 QTc: 447 Interpretive Statements SINUS TACHYCARDIA NONSPECIFIC T-WAVE ABNORMALITY ABNORMAL RHYTHM ECG Compared to ECG 10/29/2024 22:44:40 T-wave abnormality now present ST (T wave) deviation no longer present Electronically Signed On 10-30-2024 09:02:33 CDT by Araceli Falk M.D. [email or web address]
[2024-10-30 04:27] LABS: Troponin 5 6HR 12.29 ng/L (0-10); Troponin 5 6HR Delta 0.29 ng/L (0-12)
--- NOTE | 2024-10-30 04:28 | ECG_ITS ---
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 Measurements Intervals [place] Rate: 110 P: 25 DC: 147 QRS: 2 QRSD: 103 T: 14 QT: 327 QTc: 443 Interpretive Statements SINUS TACHYCARDIA ABNORMAL RHYTHM ECG Compared to ECG 10/30/2024 02:46:49 T-wave abnormality no longer present Electronically Signed On 10-30-2024 08:59:12 CDT by Araceli Falk M.D. [email or web address]
--- NOTE | 2024-10-30 04:30 | USCV_ITS ---
Maya Figueroa Age: 53 Gender: F : 1970 Exam Date: 10/30/2024 04:36 Ordering Phys: Carole Romero MD Technologist: BOGDAN [place]am [place] [facility] [place] Indication: bilateral LE swelling HISTORY: bilateral LE swelling PROCEDURES: Venous duplex imaging was performed in bilateral lower extremities. The following venous structures were evaluated: common femoral vein, profunda vein, proximal portion of the greater saphenous vein, superficial femoral vein, and the popliteal vein. In addition, the posterior tibial veins were evaluated. FINDINGS: Normal 2-D Doppler and augmentation and compressibility throughout the lower extremity venous structures. Additional imaging through the proximal calf veins also reveals no thrombus. Limited evaluation of the greater saphenous vein is patent with no thrombus. CONCLUSIONS No DVT bilateral lower extremities. Dr. Lisa Lugo DO (Electronically Signed) Final Date: 30 Oct 2024 07:13 S
--- NOTE | 2024-10-30 04:35 | USCV_ITS ---
Maya Figueroa Age: 53 Gender: F : 1970 Exam Date: 10/30/2024 09:36 Ordering Phys: Carole Romero MD Technologist: Marvin Fuentes Exam Location: [facility] [place] Indication: sob BP: 117 / 69 HR: 108 Rhythm: Sinus Technical Quality: Adequate MEASUREMENTS (Male / Female) Normal Values 2D ECHO LV Diastolic Diameter PLAX 3.8 cm 4.2 - 5.9 / 3.9 - 5.3 cm IVS Diastolic Thickness 1.3 cm 0.6 - 1.0 / 0.6 - 0.9 cm IVS Systolic Thickness 1.6 cm LVPW Diastolic Thickness 2.0 cm 0.6 - 1.0 / 0.6 - 0.9 cm LVPW Systolic Thickness 2.6 cm LVOT Diameter 2.0 cm LV Ejection Fraction 2D Teich 69.0 % LV Ejection Fraction MOD 4C 60.6 % LV Ejection Fraction MOD 2C 73.6 % LV Ejection Fraction 2C AL 72.1 % LA Diameter 3.6 cm RA Systolic Volume 4C AL 50.1 ml RA Systolic Volume 4C MOD 46.8 ml LA Sys Volume AL 74.1 cm cubed LA Sys Volume Index AL 28.8 cm cubed/m squared Aorta at Sinotubular Diameter 2.0 cm IVC Diameter 1.9 cm M-MODE LA Ao Ratio MM 2.2 MV E Point Septal Separation 0.4 cm AV Cusp Separation MM 1.9 cm DOPPLER AV Peak Velocity 221.0 cm/s LVOT Peak Velocity 117.0 cm/s AV Area Cont Eq vti 1.4 cm squared AV Area Cont Eq pk 1.7 cm squared MV Peak Velocity 169.0 cm/s MV Area PHT 11.0 cm squared Mitral E to A Ratio 0.8 TV Peak Velocity 207.7 cm/s TR Peak Velocity 285.0 cm/s TR Peak Gradient 32.5 mmHg TR Mean Velocity 249.0 cm/s TR Mean Gradient 25.3 mmHg TR Velocity Time Integral 89.5 cm FINDINGS Left Ventricle Normal left ventricular size, systolic function and wall thickness, with no regional wall motion abnormalities. Left ventricular ejection fraction is estimated at 65 %. Right Ventricle Normal right ventricular size and systolic function. Right Atrium Normal right atrial size. Left Atrium Mildly increased left atrial size. Mitral Valve Structurally normal mitral valve. Trace mitral valve regurgitation. Aortic Valve Grossly normal aortic valve Tricuspid Valve Structurally normal tricuspid valve. Trace tricuspid valve regurgitation. TR gradient mildly elevated 32 mmHg. PAP estimated at 35-40 mmHg. Pulmonic Valve Pulmonic valve not well visualized. Trace pulmonary valve regurgitation. Pericardium No pericardial effusion. Aorta Normal size aortic root and proximal ascending aorta. IVC IVC is upper normal size with blunted respiratory variation. CONCLUSIONS Tachycardia during the study Normal left ventricular size and function. LVEF normal at 65%. Mildly dilated left atrium No significant valvular abnormality noted. Mildly elevated right heart and pulmonary pressures (35-40 mmhg). Araceli Falk MD (Electronically Signed) Final Date: 30 Oct 2024 11:48 S
[2024-10-30] MEDS: piperacillin-tazobactam 3.375 GM in sodium chloride 0.9% (plus) 50 ML IV ×3 (05:37→21:21)
[2024-10-30] MEDS: morphine 4 mg/mL SDV 1 mL 2 MG IVP (05:38)
[2024-10-30] MEDS: pantoprazole 40 mg SDV IVP (05:40)
[2024-10-30 06:37] LABS: INR 1.07 (0.8-1.2)
[2024-10-30 06:38] LABS: Partial Thromboplastin Time 32.9 SECONDS (23.9-36.7)
[2024-10-30 06:38] LABS: Basophils # 0.1 10^3/uL (0.0-0.1); Basophils % 0.6 %; Eosinophils # 0.4 10^3/uL (0.0-0.8); Hematocrit 35.8 % (36-47); Mean Corpuscular HGB Conc 29.3 g/dL (30-55); Mean Corpuscular Hemoglobin 23.8 pg (27-33); Mean Platelet Volume 10.6 fL (7.4-10.4); Monocytes # 0.6 10^3/uL (0.2-0.9); Monocytes % 5.8 %; Neutrophils # 7.34 10^3/uL (1.8-7.7); Neutrophils % 78.1 %; Nucleated Red Blood Cells % 0 %; Platelet Count 287 10^3/cmm (157-399); Red Blood Count 4.42 10^6/uL (3.85-5.65); Red Cell Distribution Width 19.4 % (12.1-15.1); White Blood Count 9.42 10^3/uL (3.29-11.43)
[2024-10-30 06:47] LABS: Alanine Aminotransferase 34 U/L (0-33); Albumin Level 3.4 g/dL (3.5-5.2); Alkaline Phosphatase 185 U/L (35-105); Anion Gap 14.2 (5-19); Aspartate Amino Transferase 45 U/L (0-32); Blood Urea Nitrogen 17 mg/dL (6-20); Calcium 9.1 mg/dL (8.5-10.5); Carbon Dioxide 29 mmol/L (22-29); Chloride 98 mmol/L (98-107); Chol HDL Ratio 3.69 mg/dL (0.0-4.40); Cholesterol 118 mg/dL (0-200); Creatinine Clr Calc Pharmacy 91.7033; Globulin 4.5 g/dL (1.3-4.6); Glucose 207 mg/dL (65-115); HDL Cholesterol 32 mg/dL (60-100); LDL Cholesterol Calculated 59 mg/dL (50-129); LDL HDL Ratio 1.84 RATIO (0.00-3.22); Magnesium 1.7 mg/dL (1.7-2.3); Osmolality Calculated 292 mOsm/kg (285-295); Potassium 4.2 mmol/L (3.5-5.1); Sodium 137 mmol/L (136-145); Thyroid Stimulating Hormone 5.32 uIU/mL (0.27-4.20); Total Bilirubin 0.3 mg/dL (0.15-1.2); Total Protein 7.9 g/dL (6.6-8.7); Triglycerides 136 mg/dL (0-150)
[2024-10-30 07:04] LABS: Estmated Average Glucose 240
[2024-10-30] MEDS: ipratropium-albuterol 3 mL Neb INHALATION ×3 (07:35→20:20)
--- NOTE | 2024-10-30 08:00 | US_ITS ---
WS: [id number] RIGHT UPPER QUADRANT ULTRASOUND HISTORY: transaminitis, elevated alkphos COMPARISON: None available. Liver: 20.9 cm in length. Enlarged heterogeneous liver. Deep liver towards the diaphragm not included. Coarse echotexture. Portal Vein: Normal hepatopetal flow with monophasic waveform. Gallbladder: Prior cholecystectomy. CBD: 0.5 cm Pancreas: Tail of the pancreas not visualized. Otherwise negative. Right kidney: 11.4 cm in length. Normal size and echogenicity. No hydronephrosis or mass. Aorta and IVC: Limited. No ascites. US/US abdomen limited [id number] IMPRESSION: 1. Marked hepatomegaly with hepatic steatosis. The entire liver not visualized due to body habitus. 2. Prior cholecystectomy. 3. No hepatobiliary duct dilatation.
[2024-10-30 08:12] LABS: Adenovirus Not Detected (NOT DETECT); Chlamydia Pneumoniae Not Detected (NOT DETECT); Coronavirus 229E,HKU1,NL63,OC4 Not Detected (NOT DETECT); Human Metapneumovirus Not Detected (NOT DETECT); Human Rhinovirus/Enterovirus Detected (NOT DETECT); Influenza A Not Detected (NOT DETECT); Influenza A H1 Not Detected (NOT DETECT); Influenza A H1-2009 Not Detected (NOT DETECT); Influenza A H3 Not Detected (NOT DETECT); Influenza B Not Detected (NOT DETECT); Mycoplasma Pneumoniae Not Detected (NOT DETECT); Parainfluenza Virus Type 1 Not Detected (NOT DETECT); Parainfluenza Virus Type 2 Not Detected (NOT DETECT); Parainfluenza Virus Type 3 Not Detected (NOT DETECT); Parainfluenza Virus Type 4 Not Detected (NOT DETECT); Respiratory Syncytial Virus A Not Detected (NOT DETECT); Respiratory Syncytial Virus B Not Detected (NOT DETECT); SARS-COV-2 Not Detected (NOT DETECT)
[2024-10-30 10:58] LABS: Iron 28 ug/dL (37-145); Percent Saturation 9.3 % (20-50); Total Iron Binding Capacity 298 mcg/dl; Unsaturated Iron Binding 270 ug/dL (112-347)
[2024-10-30 11:13] LABS: Procalcitonin 0.26 ng/mL (0-0.5); Vitamin B12 522 pg/mL (232-1245)
[2024-10-30] MEDS: ARIPiprazole 10 mg Tablet 20 MG PO (11:39)
[2024-10-30] MEDS: aspirin 81 mg Chew Tablet PO (11:39)
[2024-10-30] MEDS: insulin glargine 100 units/1 mL 40 UNIT SUBCUT ×2 (11:39→21:42)
[2024-10-30] MEDS: methylPREDNISolone sod succ 40 mg/mL INJ IVP ×2 (11:39→18:04)
[2024-10-30] MEDS: sodium chloride 0.9% 1,000 ML 75 ML IV ×2 (11:40→23:32)
[2024-10-30] MEDS: enoxaparin 40 mg/0.4 mL Syringe SUBCUT (11:41)
--- NOTE | 2024-10-30 11:49 | PC.NURSE ---
this nurse did not administer noon insulin because nurse gave morning insulin late and there was only 30 minutes in between doses. patient had been NPO and blood sugar was 192 at 1145, nurse gave 40units of lantus at 1145. will reassess blood sugar in an hour
[2024-10-30 11:53] LABS: Glucose Point of Care 192 mg/dL (70-110)
--- NOTE | 2024-10-30 14:24 | P.PN_ITS ---
Subjective 2 Subjective: Admitted overnight. Patient lying comfortably in bed. Seen with family at bedside. Currently on 4 L. At baseline she only uses the BiPAP. Not on oxygen at baseline Giurgius. Complains of occasional chest pain. Vitals/I&O/Wt Last Vital Signs Temp 98.2 F 10/30/24 12:00 Pulse 104 H 10/30/24 13:37 Resp 24 H 10/30/24 13:27 BP 138/55 10/30/24 12:00 Pulse Ox 92 10/30/24 13:27 O2 Del Method Nasal Cannula 10/30/24 13:27 O2 Flow Rate 4 10/30/24 13:27 FiO2 34 10/30/24 07:50 10/29/24 10/30/24 10/30/24 22:59 06:59 14:59 Intake Total 0 / 0 250 / 250 50 / 50 Output Total 1000 / 1000 Balance 0 / 0 250 / 250 -950 / -950 Weight last 48 hrs Weight 134.263 kg Weight 135.125 kg Weight 135.624 kg Physical Exam 2 Const: GENERAL APPEARANCE: cooperative and well kempt; not comfortable NUTRITIONAL APPEARANCE: overweight O RIENTATION/CONSCIOUSNESS: Yes awake, Yes oriented to person, Yes oriented to place and Yes oriented to time HENMT: COMMON NORMALS: normocephalic, atraumatic, external ears normal and Normal external nose present HEAD & SCALP: normocephalic and atraumatic N OSE: Normal external nose present EXTERNAL EAR: Yes external ears normal M OUTH: Normal oral and palatal mucosa present THROAT: posterior oropharynx normal Eye: COMMON NORMALS: Equal, round and reactive pupils present and conjunctivae normal CONJUNCTIVA: Yes conjunctivae normal PUPIL: Yes Equal, round and reactive pupils present EOM: No EOM abnormal Neck/C-Spine: COMMON NORMALS: Thyroid normal GENERAL: Yes normal visual inspection and Yes trachea midline THYROID: Thyroid normal CAROTIDS: No bruit CERVICAL SPINE: Yes cervical ROM normal Lymph: OTHER: No cervical or supra clavicular LAD Resp: OTHER: Crackles in bilateral lower lung lobes Cardio: OTHER: RRR, no m/r/g or clicks. 2+ DP or radial pulses bilaterally. GI: OTHER: Large round abdomen, BS+, NT, ND, no guarding, no rigidity, no acute rebound tenderness or hepatosplenomegaly. Extremity: GENERAL: No cyanosis and No deformity OTHER: She has mild edema in her bilateral lower extremities, but she does not have pitting edema. Neuro: SENSORIUM/ORIENTATION: Yes oriented to person, Yes oriented to place and Yes oriented to time CRANIAL NERVES: Yes CN normal except as noted S PEECH: speech normal SENSORY EXAM: No sensory level loss detected MOTOR EXAM: 5/5 motor strength present throughout Psych: COMMON NORMALS: Normal thought process present and speech normal A PPEARANCE: Yes grossly normal and Yes well kempt ATTITUDE: Yes calm and Yes engaged ACTIVITY/MOTOR BEHAVIOR: Yes appropriate eye contact SPEECH: Yes normal speech MOOD & AFFECT: Yes euthymic mood THOUGHT PROCESS: Normal thought process present THOUGHT CONTENT: Yes Normal thought content present ATTENTION/CONCENTRATION: Yes attention grossly intact Skin: COMMON NORMALS: no rashes or lesions noted GENERAL SKIN EXAM: no rashes or lesions noted Data 10/30/24 06:06 10/30/24 06:06 Micro: Microbiology 10/29/24 20:55 Blood Culture - Preliminary Blood SPECIMEN COLLECTED 10/29/24 20:50 Blood Culture - Preliminary Blood SPECIMEN COLLECTED A&P Assessment and plan (1) Acute hypoxic respiratory failure: (2) Sepsis: (3) Right lower lobe pneumonia: (4) COPD (chronic obstructive pulmonary disease): (5) Pulmonary hypertension: (6) Diastolic heart failure: (7) Uncontrolled type 2 diabetes mellitus: (8) Sleep apnea treated with nocturnal BiPAP: (9) Chest pain: Plan Maya Figueroa is a 53 yo woman w/ metabolic syndrome and VIVIAN on BiPAP, who presented to the ED on 10/29/2024 with complaints of progressive dyspnea, chest pain, and nonproductive cough. #Acute on chronic hypoxic hypercapneic respiratory failure: Most likely in setting of COPD exacerbation along with mild acute decompensated diastolic heart failure along with right lower lobe pneumonia. Echocardiogram shows an EF of 60%, mild pulmonary hypertension with PASP of 35 to 40 mmHg. Ox supplementation keeping saturation of 88%. Continue with nightly BiPAP. Start on Solu-Medrol 40 mg Q6 hourly after 125 mg stat. Pulmicort twice daily, DuoNeb every 4 hour. Sepsis due to R. LL pneumonia: Along with concerns for enterovirus/rhinovirus infection. SIRS: Tachycardic, Febrile, Leukocytosis Source: Right lower lobe pneumonia End organ damage: Acute hypoxic respiratory failure Lactic acid within normal limits Patient did not receive full 30 mL/kg BW given concerns for diastolic heart failure. Monitor blood pressures. Keep mean artery pressure 65 mmHg. Follow-up blood culture, check MRSA swab, sputum culture, trend procalcitonin. Continue with treatment for community-acquired pneumonia with possibility of aspiration pneumonia. Continue azithromycin for atypical coverage. IV Zosyn. If MRSA swab positive will add vancomycin. Chest pain: Less likely cardiac. Troponin cycled negative. Echocardiogram negative for regional wall motion abnormality. No concern for PE as D-dimer negative. Most likely in setting of pneumonia along with COPD exacerbation. Continue baby aspirin, statin. Check A1c, lipid panel. Type 2 diabetes mellitus: A1c of 10. Uncontrolled. Takes high-dose Lantus, lispro along with glimepiride at home. Continue with exercise Moderate dose protocol. Change Lantus to 40 units twice daily. Most likely patient will need to follow-up with taxation agent as an outpatient. Restart other home chronic medications including baclofen, benztropine, ilaprazole, gabapentin, nortriptyline, Requip. Full code Carb consistent cardiac diet. Modified barium swallow. Protonix for PUD prophylaxis Lovenox for DVT prophylaxis. PDMP PDMP Reviewed: Not Reviewed Attestations 2 Medical Necessity Statement*: Requires further hospitalization for management of acute on chronic hypoxic and hypercapnic respiratory failure in setting of COPD exacerbation of diastolic heart failure along with a right lower lobe pneumonia in a patient with enterovirus, uncontrolled type 2 diabetes mellitus Diagnoses Acute hypoxic respiratory failure J96.01 Sepsis A41.9 Right lower lobe pneumonia J18.9 COPD (chronic obstructive pulmonary disease) J44.9 Pulmonary hypertension I27.20 Diastolic heart failure I50.30 Uncontrolled type 2 diabetes mellitus Sleep apnea treated with nocturnal BiPAP G47.30 Chest pain R07.9 Chest pain type: unspecified
--- NOTE | 2024-10-30 14:31 | PM.CONSULT ---
Providers/Reason For Consult Consulting Physician/Specialty*: Hospitalist/internal medicine Reason for Consult*: Chest pain Requesting Physician: Dr. Tamayo Attending Physician: Jeremias William MD Primary Care Provider: Andrea Ren DO History of Present Illness History of Present Illness Maya Figueroa is a 53 year old female with history of metabolic syndrome, morbid obesity, admitted with shortness of air and chest pain. Clinically chest pain is more likely noncardiac as the chest pain is more of pleuritic type. She gets chest pain with a cough and increased with the breathing and at times with movement. She also does complain of shortness of air which she often gets even at rest and as well as with routine activity. On admission EKG did not show any acute ischemic changes and troponin is flat without any elevation significant for myocardial infarction. I reviewed her lab data, admission history and current medications. Currently patient is being treated with the IV antibiotics for possible pneumonia. Review of Systems Narrative: Detailed 10 point system review unremarkable except for as mentioned above in the history of present illness. Medications/Allergies Home Medications ?Medication ?Instructions ?Recorded ?Confirmed ?Last Taken ?Type acetaminophen 500 mg tablet 500 mg PO QID PRN Pain 12/12/19 10/30/24 Unknown History amlodipine 10 mg tablet 10 mg PO DAILY 12/12/19 10/30/24 10/29/24 08:00 History atorvastatin 40 mg PO BEDTIME 12/12/19 10/30/24 10/28/24 20:00 History baclofen 5 mg PO BID 12/12/19 10/30/24 10/29/24 08:00 History cetirizine 10 mg tablet 10 mg PO DAILY 12/12/19 10/30/24 10/29/24 08:00 History docusate sodium 100 mg PO BID 12/12/19 10/30/24 10/29/24 08:00 History epinephrine 0.3 mg IM PRN PRN anaphylaxis 12/12/19 10/30/24 Unknown History gabapentin 600 mg tablet 600 mg PO TID 12/12/19 10/30/24 10/29/24 08:00 History glimepiride 4 mg PO BID 12/12/19 10/30/24 10/29/24 08:00 History hydrochlorothiazide 25 mg PO QAM 12/12/19 10/30/24 12/11/19 History metformin 1,000 mg PO BID 12/12/19 10/30/24 10/29/24 08:00 History empagliflozin 25 mg tablet 25 mg PO QAM 09/18/21 10/30/24 10/29/24 08:00 History (Jardiance) linaclotide 290 mcg capsule 290 mcg PO QAM 09/18/21 10/30/24 10/29/24 08:00 History (Linzess) lisinopril 5 mg tablet 5 mg PO DAILY 09/18/21 10/30/24 10/29/24 08:00 History montelukast 10 mg tablet 10 mg PO DAILY 09/18/21 10/30/24 10/29/24 08:00 History (Singulair) pantoprazole 40 mg tablet,delayed 40 mg PO BID 09/18/21 10/30/24 10/29/24 08:00 History release (Protonix) ropinirole 1 mg tablet 2 mg PO BEDTIME 09/18/21 10/30/24 10/28/24 20:00 History insulin glargine 100 unit/mL (3 85 unit SUBCUT DAILY 07/20/23 10/30/24 10/29/24 08:00 History mL) subcutaneous pen (Lantus Solostar U-100 Insulin) meclizine 25 mg tablet (Dramamine 25 mg PO TID PRN motion sickness 10/13/23 10/30/24 Unknown Rx (meclizine)) #20 tabs ondansetron 4 mg disintegrating 4 mg PO Q6H PRN nausea and 04/12/24 10/30/24 10/29/24 08:00 Rx tablet vomiting #12 tabs venlafaxine 150 mg 150 mg PO QAM 30 days #30 caps 06/04/24 10/30/24 10/29/24 08:00 Rx capsule,extended release 24 hr (Effexor XR) aripiprazole 20 mg tablet 20 mg PO DAILY 10/30/24 10/30/24 10/29/24 08:00 History benztropine 1 mg tablet 1 mg PO BID 10/30/24 10/30/24 10/29/24 08:00 History cholecalciferol (vitamin D3) 10 See Rx Instructions .Route .COMPLEX 10/30/24 10/30/24 10/29/24 08:00 History mcg (400 unit) tablet hydroxyzine pamoate 50 mg capsule 50 mg PO BEDTIME 10/30/24 10/30/24 10/28/24 20:00 History insulin lispro 100 unit/mL See Rx Instructions .Route .COMPLEX 10/30/24 10/30/24 10/29/24 08:00 History subcutaneous pen (Humalog KwikPen (U-100) Insulin) nortriptyline 25 mg capsule 75 mg PO BEDTIME 10/30/24 10/30/24 10/28/24 20:00 History tirzepatide 15 mg/0.5 mL 15 mg SUBCUT Q7D 10/30/24 10/30/24 Unknown History subcutaneous pen injector (Mounjaro) venlafaxine 75 mg capsule,extended 75 mg PO DAILY 10/30/24 10/30/24 10/29/24 08:00 History release 24 hr Allergies Allergy/AdvReac Type Severity Reaction Status Date / Time methocarbamol Allergy Intermediate itching Verified 04/12/24 13:37 Sulfa (Sulfonamide Allergy Unknown Unknown Verified 04/12/24 13:37 Antibiotics) tramadol Allergy ADR-Headach Verified 10/30/24 05:37 e Current Medications Generic Name Dose Route Start Last Admin Trade Name Freq PRN Reason Stop Dose Admin Albuterol/Ipratropium 3 ml 10/30/24 08:00 10/30/24 13:25 Ipratropium-Albuterol 3 Ml Neb INHALATION 3 ml Q6H.RESP MELA Administration Aripiprazole 20 mg 10/30/24 11:00 10/30/24 11:39 Aripiprazole 10 Mg Tablet PO 20 mg DAILY MELA Administration Aspirin 81 mg 10/30/24 09:00 10/30/24 11:39 Aspirin 81 Mg Chew Tablet PO 81 mg DAILY MELA Administration Piperacillin Sod/Tazobactam 50 mls @ 12.5 mls/hr 10/30/24 04:45 10/30/24 12:36 Sod 3.375 gm/ Sodium Chloride IV 12.5 mls/hr Q8H MELA Administration Protocol Sodium Chloride 1,000 mls @ 75 mls/hr 10/30/24 08:45 10/30/24 11:40 Sodium Chloride 0.9% IV 75 mls/hr .[id number] MELA Administration Insulin Human Lispro 0 unit 10/30/24 12:00 10/30/24 11:49 Insulin Lispro 100 Unit/1 Ml SUBCUT Not Given TIDWM MELA Protocol Methylprednisolone Sodium Succinate 40 mg 10/30/24 10:30 10/30/24 11:39 Methylprednisolone Sod Succ 40 Mg/Ml Inj IVP 40 mg Q8H MELA Administration Pantoprazole Sodium 40 mg 10/30/24 05:30 10/30/24 05:40 Pantoprazole 40 Mg Sdv IVP 40 mg Q24H MELA Administration PFSH Acute PFSH: Medical History Uncontrolled type 2 diabetes mellitus Diastolic heart failure Pulmonary hypertension COPD (chronic obstructive pulmonary disease) Diabetes Psychiatric care Medication management Sleep apnea treated with nocturnal BiPAP Hypersomnia Major depressive disorder, recurrent, severe with psychotic symptoms Chronic post-traumatic stress disorder Generalized anxiety disorder Surgical History History of back surgery due to a herniated disk. Hx laparoscopic cholecystectomy History of hysterectomy with bilateral oophorectomy due to menorrhagia H/O shoulder surgery due to Frozen shoulder Family History Father Lung cancer Sister Multiple myeloma Mother Heart disease Social History Smoking and tobacco/nicotine status: former use of tobacco/nicotine Quit status (tobacco/nicotine): has quit using Former quit date comment: She smoked 1/2 PPD for about 6 months Alcohol intake: never Substance/Drug Use: never Current gender identity: Female Female Reproductive History: Spontaneous abortions: No Vitals/I&O/Wt Last Vital Signs Temp 98.2 F 10/30/24 12:00 Pulse 104 H 10/30/24 13:37 Resp 24 H 10/30/24 13:27 BP 138/55 10/30/24 12:00 Pulse Ox 92 10/30/24 13:27 O2 Del Method Nasal Cannula 10/30/24 13:27 O2 Flow Rate 4 10/30/24 13:27 FiO2 34 10/30/24 07:50 10/29/24 10/30/24 10/30/24 22:59 06:59 14:59 Intake Total 0 / 0 250 / 250 50 / 50 Output Total 1000 / 1000 Balance 0 / 0 250 / 250 -950 / -950 Weight last 48 hrs Weight 296 lb Weight 297 lb 14.4 oz Weight 299 lb Physical Exam Const: COMMON NORMALS: no acute distress OTHER: Significant increased BMI HENMT: COMMON NORMALS: normocephalic HEAD & SCALP: normocephalic OTHER: Unremarkable. Eye: OTHER: Normal and unremarkable. Resp: OTHER: Air entry is reduced at the bases bilaterally more so on the left side. There are minimal rales at the bases as well. Cardio: OTHER: Tachycardia with normal 1st and 2nd heart sound. No added sounds. GI: OTHER: Abdomen soft nontender. Bowel sounds audible and normal. Extremity: OTHER: Trace to 1+ pitting edema bilaterally. Neuro: OTHER: Grossly intact and nonfocal. Skin: OTHER: Skin over prophase is warm and dry. Data 10/30/24 06:06 10/30/24 06:06 Micro: Microbiology 10/29/24 20:55 Blood Culture - Preliminary Blood SPECIMEN COLLECTED 10/29/24 20:50 Blood Culture - Preliminary Blood SPECIMEN COLLECTED A&P Assessment and plan (1) Diastolic heart failure: Plan 53-year-old female patient with morbid obesity, clinically chest pain is noncardiac. The cardiac marker troponins are not suggestive of acute cardiac ischemia. LVEF is normal and mildly elevated right heart and pulmonary pressures all secondary to her significant significantly high BMI. There is minimal rales at the bases of lungs bilaterally suggestive of mild congestive heart failure. Recommend to add scheduled diuresis. The rest of management as per hospital list team. PDMP PDMP Reviewed: Not Reviewed Consult Attestations Medical Necessity Statement: Chest pain, respiratory failure Coding Level of Care Code 50880 Diagnoses Diastolic heart failure I50.30 Time Spent (min) 30
[2024-10-30] MEDS: FUROsemide 10 mg/mL SDV 4mL 40 MG IVP (16:00)
[2024-10-30] MEDS: gabapentin 300 mg Capsule 600 MG PO ×2 (16:00→21:22)
[2024-10-30 16:52] LABS: Glucose Point of Care 307 mg/dL (70-110)
[2024-10-30] MEDS: insulin lispro 100 unit/1 mL SUBCUT ×2 (18:01→21:42)
[2024-10-30] MEDS: benztropine 1 mg Tablet PO (18:04)
[2024-10-30] MEDS: baclofen 10 mg Tablet 5 MG PO (18:04)
[2024-10-30 19:27] LABS: MRSA PCR OZH (swab) MRSA Detected (Not Detecte)
[2024-10-30 20:45] LABS: Glucose Point of Care 358 mg/dL (70-110)
[2024-10-30] MEDS: nortriptyline 25 mg Capsule 75 MG PO (21:22)
[2024-10-30] MEDS: sennosides 8.6 mg Tablet 17.2 MG PO (21:22)
[2024-10-30] MEDS: ropinirole 1 mg Tablet 2 MG PO (21:22)
[2024-10-30] MEDS: atorvastatin 40 mg Tablet PO (21:22)
[2024-10-30] MEDS: AZITHROMYCIN ADD-Vantage 500 MG in 0.9% NaCl ADD-Vantage 250 ML 250 MG IV ×2 (21:25)
[2024-10-30] MEDS: vancomycin 2,000 MG/400 ML PIGGYBACK 200 MG IV (23:32)
[2024-10-31] VITALS (10 sets, daily range): BP systolic 108–132; BP diastolic 64–74; PULSE 85–102; RESP 16–18; TEMP 36.3–36.6; O2SAT 90–95
[2024-10-31] MEDS: ipratropium-albuterol 3 mL Neb INHALATION ×4 (02:19→21:21)
[2024-10-31] MEDS: methylPREDNISolone sod succ 40 mg/mL INJ IVP ×3 (02:24→16:59)
[2024-10-31] MEDS: piperacillin-tazobactam 3.375 GM in sodium chloride 0.9% (plus) 50 ML IV ×3 (04:04→21:44)
[2024-10-31] MEDS: FUROsemide 10 mg/mL SDV 4mL 40 MG IVP ×2 (04:06→16:59)
[2024-10-31 04:45] LABS: Basophils % 0.3 %; Hematocrit 36.7 % (36-47); Lymphocytes # 0.6 10^3/uL (0.8-4.8); Lymphocytes % 8.9 %; Mean Corpuscular HGB Conc 29.4 g/dL (30-55); Mean Corpuscular Volume 81.6 fl (85-98); Mean Platelet Volume 10.3 fL (7.4-10.4); Monocytes # 0.2 10^3/uL (0.2-0.9); Monocytes % 3.3 %; Neutrophils # 6.12 10^3/uL (1.8-7.7); Neutrophils % 86.5 %; Nucleated Red Blood Cells % 0 %; Platelet Count 304 10^3/cmm (157-399); Red Cell Distribution Width 19.7 % (12.1-15.1); White Blood Count 7.07 10^3/uL (3.29-11.43)
[2024-10-31 04:57] LABS: Chol HDL Ratio 4.45 mg/dL (0.0-4.40); Cholesterol 147 mg/dL (0-200); HDL Cholesterol 33 mg/dL (60-100); LDL Cholesterol Calculated 86 mg/dL (50-129); Triglycerides 142 mg/dL (0-150); VLDL Cholestrol Calculation 28 mg/dL (0-30)
[2024-10-31] MEDS: pantoprazole 40 mg SDV IVP (04:58)
[2024-10-31 05:04] LABS: Alanine Aminotransferase 32 U/L (0-33); Albumin Level 3.4 g/dL (3.5-5.2); Alkaline Phosphatase 177 U/L (35-105); Anion Gap 16.4 (5-19); Aspartate Amino Transferase 34 U/L (0-32); Blood Urea Nitrogen 22 mg/dL (6-20); Calcium 9.1 mg/dL (8.5-10.5); Carbon Dioxide 27 mmol/L (22-29); Chloride 98 mmol/L (98-107); Creatinine Clr Calc Pharmacy 90.2687; Globulin 4.7 g/dL (1.3-4.6); Glucose 328 mg/dL (65-115); Magnesium 2.1 mg/dL (1.7-2.3); Osmolality Calculated 300 mOsm/kg (285-295); Phosphorus 3.8 mg/dL (2.5-4.5); Potassium 4.4 mmol/L (3.5-5.1); Sodium 137 mmol/L (136-145); Total Bilirubin 0.4 mg/dL (0.15-1.2); Total Protein 8.1 g/dL (6.6-8.7)
[2024-10-31 06:39] LABS: Folate Level 7.6 ng/mL (4.8-37.3)
[2024-10-31 06:42] LABS: Glucose Point of Care 431 mg/dL (70-110)
--- NOTE | 2024-10-31 08:20 | PHA.VACGOAL ---
Vancomycin Goal - Goal Vancomycin Goal:: 15-20 mg/L Vancomycin Indication:: Other (SEPSIS) - Therapy Current therapy:: Azithromycin, Pip/Tazo Day of therpy:: Day [1]of [] . Actual body weight (kg): 130.771 kg - Data Labs: WBC 7.07 10^3/uL (3.29-11.43) 10/31/24 04:22 RBC 4.50 10^6/uL (3.85-5.65) 10/31/24 04:22 Hgb 10.80 g/dL (11.27-16.99) L 10/31/24 04:22 Hct 36.7 % (36-47) 10/31/24 04:22 MCV 81.6 fl (85-98) L 10/31/24 04:22 MCH 24.0 pg (27-33) L 10/31/24 04:22 MCHC 29.4 g/dL (30-55) L 10/31/24 04:22 RDW 19.7 % (12.1-15.1) H 10/31/24 04:22 Sodium 137 mmol/L (136-145) 10/31/24 04:22 Potassium 4.4 mmol/L (3.5-5.1) 10/31/24 04:22 Chloride 98 mmol/L (98-107) 10/31/24 04:22 Carbon Dioxide 27 mmol/L (22-29) 10/31/24 04:22 Anion Gap 16.4 (5-19) 10/31/24 04:22 BUN 22 mg/dL (6-20) H 10/31/24 04:22 Creatinine 1.0 mg/dL (0.5-0.9) H 10/31/24 04:22 GFR Calculation 58.0 mL/min (90-130) L 10/31/24 04:22 Treatment plan:: new consult Regimen:: New start vancomycin for sepsis. No prior vancomycin history found. Started on maintenance dose of 2000 mg q18h.
[2024-10-31] MEDS: ARIPiprazole 10 mg Tablet 20 MG PO (08:23)
[2024-10-31] MEDS: baclofen 10 mg Tablet 5 MG PO ×2 (08:23→16:59)
[2024-10-31] MEDS: aspirin 81 mg Chew Tablet PO (08:23)
[2024-10-31] MEDS: benztropine 1 mg Tablet PO ×2 (08:23→16:58)
[2024-10-31] MEDS: gabapentin 300 mg Capsule 600 MG PO ×3 (08:23→20:02)
[2024-10-31] MEDS: insulin lispro 100 unit/1 mL SUBCUT ×4 (08:23→21:45)
[2024-10-31] MEDS: insulin glargine 100 units/1 mL 40 UNIT SUBCUT ×2 (08:24→20:26)
[2024-10-31] MEDS: enoxaparin 40 mg/0.4 mL Syringe SUBCUT (08:25)
[2024-10-31 10:53] LABS: Glucose Point of Care 402 mg/dL (70-110)
[2024-10-31] MEDS: metOLazone 5 MG Tablet PO (12:11)
--- NOTE | 2024-10-31 13:00 | P.PN_ITS ---
Subjective 2 Subjective: No acute events overnight. Patient has remained hemodynamically stable and afebrile. Currently on 4 L of oxygen supplementation. Denies any nausea, vomiting, headache. Vitals/I&O/Wt Last Vital Signs Temp 97.5 F L 10/31/24 11:56 Pulse 102 H 10/31/24 11:56 Resp 17 10/31/24 11:56 BP 132/68 10/31/24 11:56 Pulse Ox 92 10/31/24 11:56 O2 Del Method Nasal Cannula 10/31/24 11:56 O2 Flow Rate 3.5 10/31/24 08:45 FiO2 34 10/30/24 07:50 10/30/24 10/31/24 10/31/24 22:59 06:59 14:59 Intake Total 170 / 220 2400 / 2620 1243.75 / 1243.75 Output Total 500 / 1500 600 / 2100 1600 / 1600 Balance -330 / -1280 1800 / 520 -356.25 / -356.25 Weight last 48 hrs Weight 130.771 kg Weight 134.263 kg Weight 135.125 kg Weight 135.624 kg Physical Exam 2 Const: GENERAL APPEARANCE: cooperative, comfortable, well kempt, well developed and well hydrated NUTRITIONAL APPEARANCE: overweight O RIENTATION/CONSCIOUSNESS: Yes awake, Yes oriented to person, Yes oriented to place and Yes oriented to time HENMT: COMMON NORMALS: normocephalic, atraumatic, external ears normal and Normal external nose present HEAD & SCALP: normocephalic and atraumatic N OSE: Normal external nose present EXTERNAL EAR: Yes external ears normal M OUTH: Normal oral and palatal mucosa present THROAT: posterior oropharynx normal Eye: COMMON NORMALS: Equal, round and reactive pupils present and conjunctivae normal CONJUNCTIVA: Yes conjunctivae normal PUPIL: Yes Equal, round and reactive pupils present EOM: No EOM abnormal Neck/C-Spine: COMMON NORMALS: Thyroid normal GENERAL: Yes normal visual inspection and Yes trachea midline THYROID: Thyroid normal CAROTIDS: No bruit CERVICAL SPINE: Yes cervical ROM normal Lymph: OTHER: No cervical or supra clavicular LAD Resp: OTHER: Bilateral bronchial breath sounds over lung alas occasional rhonchi, fine crackles present bilaterally in lower zone Cardio: OTHER: RRR, no m/r/g or clicks. 2+ DP or radial pulses bilaterally. GI: OTHER: Large round abdomen, BS+, NT, ND, no guarding, no rigidity, no acute rebound tenderness or hepatosplenomegaly. Extremity: GENERAL: No cyanosis and No deformity OTHER: She has mild edema in her bilateral lower extremities, but she does not have pitting edema. Neuro: SENSORIUM/ORIENTATION: Yes oriented to person, Yes oriented to place and Yes oriented to time CRANIAL NERVES: Yes CN normal except as noted S PEECH: speech normal SENSORY EXAM: No sensory level loss detected MOTOR EXAM: 5/5 motor strength present throughout Psych: COMMON NORMALS: Normal thought process present and speech normal A PPEARANCE: Yes grossly normal and Yes well kempt ATTITUDE: Yes calm and Yes engaged ACTIVITY/MOTOR BEHAVIOR: Yes appropriate eye contact SPEECH: Yes normal speech MOOD & AFFECT: Yes euthymic mood THOUGHT PROCESS: Normal thought process present THOUGHT CONTENT: Yes Normal thought content present ATTENTION/CONCENTRATION: Yes attention grossly intact Skin: COMMON NORMALS: no rashes or lesions noted GENERAL SKIN EXAM: no rashes or lesions noted Data 10/31/24 04:22 10/31/24 04:22 Micro: Microbiology 10/29/24 20:55 Blood Culture - Preliminary Blood NEGATIVE TO DATE 10/29/24 20:50 Blood Culture - Preliminary Blood NEGATIVE TO DATE 10/30/24 17:08 Occult Blood (FIT) - Final Stool - Stool Aspirate A&P Assessment and plan (1) Acute hypoxic respiratory failure: (2) Sepsis: (3) Right lower lobe pneumonia: (4) COPD (chronic obstructive pulmonary disease): (5) Pulmonary hypertension: (6) Diastolic heart failure: (7) Uncontrolled type 2 diabetes mellitus: (8) Sleep apnea treated with nocturnal BiPAP: (9) Chest pain: Plan Maya Figueroa is a 53 yo woman w/ metabolic syndrome and VIVIAN on BiPAP, who presented to the ED on 10/29/2024 with complaints of progressive dyspnea, chest pain, and nonproductive cough. #Acute on chronic hypoxic hypercapneic respiratory failure: Most likely in setting of COPD exacerbation along with mild acute decompensated diastolic heart failure along with right lower lobe pneumonia. Echocardiogram shows an EF of 60%, mild pulmonary hypertension with PASP of 35 to 40 mmHg. Ox supplementation keeping saturation of 88%. Continue with nightly BiPAP. Wean Solu-Medrol 40 mg every 8 hourly Pulmicort twice daily, DuoNeb every 4 hour. Given concerns for diastolic heart failure continue with IV Lasix 40 mg twice daily. Strict input output charting. Fluid restriction to less than 1500 cc. Oral metolazone 5 mg one-time. Sepsis due to R. LL pneumonia: Along with concerns for enterovirus/rhinovirus infection. SIRS: Tachycardic, Febrile, Leukocytosis Source: Right lower lobe pneumonia End organ damage: Acute hypoxic respiratory failure Lactic acid within normal limits Patient did not receive full 30 mL/kg BW given concerns for diastolic heart failure. Monitor blood pressures. Keep mean artery pressure 65 mmHg. Follow-up blood culture, positive MRSA swab, pending sputum culture, appreciate trend procalcitonin. Continue with treatment for community-acquired pneumonia with possibility of aspiration pneumonia. Continue azithromycin for atypical coverage. Along with IV Zosyn and vancomycin. Aggressive pulmonary toilet with I-S and Acapella. Chest pain: Less likely cardiac. Troponin cycled negative. Echocardiogram negative for regional wall motion abnormality. No concern for PE as D-dimer negative. Most likely in setting of pneumonia along with COPD exacerbation. Continue baby aspirin, statin. Appreciate A1c, lipid panel. Type 2 diabetes mellitus: A1c of 10. Uncontrolled. Takes high-dose Lantus 85 units daily, lispro 40 units 3 times daily, glimepiride, Mounjaro, metformin at home. Insulin sliding scale at high dose protocol. Add lispro 15 units 3 times daily along with sliding scale. Continue Lantus 40 units twice daily. Restart other home chronic medications including baclofen, benztropine, ilaprazole, gabapentin, nortriptyline, Requip. Out of bed to chair Full code Carb consistent cardiac diet. Modified barium swallow. Protonix for PUD prophylaxis Lovenox for DVT prophylaxis. PDMP PDMP Reviewed: Not Reviewed Attestations 2 Medical Necessity Statement*: Requires further hospitalization for management of acute on chronic hypoxic respiratory failure in setting of right lower lobe pneumonia, enterovirus, diastolic heart failure in a patient with uncontrolled type 2 diabetes mellitus Diagnoses Acute hypoxic respiratory failure J96.01 Sepsis A41.9 Right lower lobe pneumonia J18.9 COPD (chronic obstructive pulmonary disease) J44.9 Pulmonary hypertension I27.20 Diastolic heart failure I50.30 Uncontrolled type 2 diabetes mellitus Sleep apnea treated with nocturnal BiPAP G47.30 Chest pain R07.9 Chest pain type: unspecified
[2024-10-31 16:38] LABS: Glucose Point of Care 359 mg/dL (70-110)
[2024-10-31] MEDS: vancomycin 2,000 MG/400 ML PIGGYBACK 200 MG IV (16:53)
[2024-10-31] MEDS: insulin lispro 100 unit/1 mL 15 UNIT SUBCUT (17:04)
[2024-10-31] MEDS: AZITHROMYCIN ADD-Vantage 500 MG in 0.9% NaCl ADD-Vantage 250 ML 250 MG IV (20:01)
[2024-10-31] MEDS: atorvastatin 40 mg Tablet PO (20:02)
[2024-10-31] MEDS: ropinirole 1 mg Tablet 2 MG PO (20:02)
[2024-10-31] MEDS: sennosides 8.6 mg Tablet 17.2 MG PO (20:02)
[2024-10-31] MEDS: nortriptyline 25 mg Capsule 75 MG PO (20:02)
[2024-10-31 21:19] LABS: Glucose Point of Care 324 mg/dL (70-110)
[2024-11-01] VITALS (14 sets, daily range): BP systolic 115–149; BP diastolic 62–81; PULSE 80–100; RESP 15–18; TEMP 36.4–36.9; O2SAT 91–97
[2024-11-01] MEDS: ipratropium-albuterol 3 mL Neb INHALATION ×4 (01:42→20:41)
[2024-11-01] MEDS: FUROsemide 10 mg/mL SDV 4mL 40 MG IVP ×2 (03:13→16:41)
[2024-11-01] MEDS: methylPREDNISolone sod succ 40 mg/mL INJ IVP ×2 (03:13→07:37)
[2024-11-01 04:18] LABS: Basophils % 0.3 %; Eosinophils % 0.1 %; Hematocrit 35.9 % (36-47); Lymphocytes # 1.3 10^3/uL (0.8-4.8); Lymphocytes % 13.6 %; Mean Corpuscular Hemoglobin 23.7 pg (27-33); Mean Platelet Volume 10.6 fL (7.4-10.4); Monocytes # 0.7 10^3/uL (0.2-0.9); Monocytes % 6.7 %; Neutrophils # 7.66 10^3/uL (1.8-7.7); Neutrophils % 78.9 %; Nucleated Red Blood Cells % 0 %; Platelet Count 313 10^3/cmm (157-399); Red Blood Count 4.38 10^6/uL (3.85-5.65); Red Cell Distribution Width 19.6 % (12.1-15.1); White Blood Count 9.71 10^3/uL (3.29-11.43)
[2024-11-01 04:38] LABS: Alanine Aminotransferase 30 U/L (0-33); Albumin Level 3.4 g/dL (3.5-5.2); Alkaline Phosphatase 157 U/L (35-105); Anion Gap 17.2 (5-19); Aspartate Amino Transferase 32 U/L (0-32); Blood Urea Nitrogen 31 mg/dL (6-20); Calcium 9.6 mg/dL (8.5-10.5); Carbon Dioxide 26 mmol/L (22-29); Chloride 95 mmol/L (98-107); Creatinine Clr Calc Pharmacy 100.2986; Globulin 4.8 g/dL (1.3-4.6); Glomerular Filtration Rate 65.5 mL/min (90-130); Glucose 334 mg/dL (65-115); Osmolality Calculated 298 mOsm/kg (285-295); Phosphorus 4.1 mg/dL (2.5-4.5); Potassium 4.2 mmol/L (3.5-5.1); Sodium 134 mmol/L (136-145); Total Bilirubin 0.4 mg/dL (0.15-1.2); Total Protein 8.2 g/dL (6.6-8.7)
[2024-11-01] MEDS: pantoprazole 40 mg SDV IVP (05:17)
[2024-11-01] MEDS: piperacillin-tazobactam 3.375 GM in sodium chloride 0.9% (plus) 50 ML IV ×3 (05:18→20:35)
[2024-11-01 06:51] LABS: Glucose Point of Care 392 mg/dL (70-110)
[2024-11-01] MEDS: ARIPiprazole 10 mg Tablet 20 MG PO (07:35)
[2024-11-01] MEDS: benztropine 1 mg Tablet PO ×2 (07:35→17:07)
[2024-11-01] MEDS: gabapentin 300 mg Capsule 600 MG PO ×3 (07:36→20:33)
[2024-11-01] MEDS: baclofen 10 mg Tablet 5 MG PO ×2 (07:36→17:07)
[2024-11-01] MEDS: enoxaparin 40 mg/0.4 mL Syringe SUBCUT (07:37)
[2024-11-01] MEDS: aspirin 81 mg Chew Tablet PO (07:37)
[2024-11-01] MEDS: insulin lispro 100 unit/1 mL 15 UNIT SUBCUT (07:38)
[2024-11-01] MEDS: vancomycin 2,000 MG/400 ML PIGGYBACK 200 MG IV (07:39)
[2024-11-01] MEDS: insulin glargine 100 units/1 mL 40 UNIT SUBCUT (07:39)
[2024-11-01 09:00] LABS: Glucose Point of Care 458 mg/dL (70-110)
[2024-11-01] MEDS: insulin lispro 100 unit/1 mL SUBCUT ×3 (09:17→18:01)
[2024-11-01 10:46] LABS: Glucose Point of Care 439 mg/dL (70-110)
--- NOTE | 2024-11-01 11:45 | PC.NURSE ---
Addendum entered by Martha Machado LPN 11/01/24 11:51: Verbal order given by Dr. Reed to change low dose sliding scale of Humalog to medium dose sliding scale of Humalog and change MELA 15 units of Humalog to MELA 25units of Humalog TID. Original Note: Blood sugar remaining in [address] Reed to see about increasing sliding scale from low dose to either medium or high dose.
[2024-11-01] MEDS: insulin lispro 100 unit/1 mL 25 UNIT SUBCUT ×2 (11:59→16:41)
--- NOTE | 2024-11-01 12:23 | P.PN_ITS ---
Subjective 2 Subjective: No acute vents overnight. Patient states he is feeling better. Denies any nausea, vomiting, headache. Currently on 2 L of oxygen supplementation saturating around 94%. Wean down to 1 L oxygen supplementation. Able to ambulate in the room without much difficulty in breathing. Vitals/I&O/Wt Last Vital Signs Temp 98.4 F 11/01/24 11:12 Pulse 96 11/01/24 11:12 Resp 18 11/01/24 11:12 BP 132/74 11/01/24 11:12 Pulse Ox 94 11/01/24 11:12 O2 Del Method Nasal Cannula 11/01/24 11:12 O2 Flow Rate 3.5 11/01/24 08:00 FiO2 34 10/30/24 07:50 10/31/24 11/01/24 11/01/24 22:59 06:59 14:59 Intake Total 850 / 2093.75 290 / 2383.75 500 / 500 Output Total 1700 / 3300 1000 / 4300 900 / 900 Balance -850 / -1206.25 -710 / -1916.25 -400 / -400 Weight last 48 hrs Weight 130.635 kg Weight 130.771 kg Physical Exam 2 Const: GENERAL APPEARANCE: cooperative, comfortable, well kempt, well developed and well hydrated NUTRITIONAL APPEARANCE: overweight O RIENTATION/CONSCIOUSNESS: Yes awake, Yes oriented to person, Yes oriented to place and Yes oriented to time HENMT: COMMON NORMALS: normocephalic, atraumatic, external ears normal and Normal external nose present HEAD & SCALP: normocephalic and atraumatic N OSE: Normal external nose present EXTERNAL EAR: Yes external ears normal M OUTH: Normal oral and palatal mucosa present THROAT: posterior oropharynx normal Eye: COMMON NORMALS: Equal, round and reactive pupils present and conjunctivae normal CONJUNCTIVA: Yes conjunctivae normal PUPIL: Yes Equal, round and reactive pupils present EOM: No EOM abnormal Neck/C-Spine: COMMON NORMALS: Thyroid normal GENERAL: Yes normal visual inspection and Yes trachea midline THYROID: Thyroid normal CAROTIDS: No bruit CERVICAL SPINE: Yes cervical ROM normal Lymph: OTHER: No cervical or supra clavicular LAD Resp: OTHER: Bilateral bronchial breath sounds over lung alas occasional rhonchi, fine crackles present bilaterally in lower zone Cardio: OTHER: RRR, no m/r/g or clicks. 2+ DP or radial pulses bilaterally. GI: OTHER: Large round abdomen, BS+, NT, ND, no guarding, no rigidity, no acute rebound tenderness or hepatosplenomegaly. Extremity: GENERAL: No cyanosis and No deformity OTHER: She has mild edema in her bilateral lower extremities, but she does not have pitting edema. Neuro: SENSORIUM/ORIENTATION: Yes oriented to person, Yes oriented to place and Yes oriented to time CRANIAL NERVES: Yes CN normal except as noted S PEECH: speech normal SENSORY EXAM: No sensory level loss detected MOTOR EXAM: 5/5 motor strength present throughout Psych: COMMON NORMALS: Normal thought process present and speech normal A PPEARANCE: Yes grossly normal and Yes well kempt ATTITUDE: Yes calm and Yes engaged ACTIVITY/MOTOR BEHAVIOR: Yes appropriate eye contact SPEECH: Yes normal speech MOOD & AFFECT: Yes euthymic mood THOUGHT PROCESS: Normal thought process present THOUGHT CONTENT: Yes Normal thought content present ATTENTION/CONCENTRATION: Yes attention grossly intact Skin: COMMON NORMALS: no rashes or lesions noted GENERAL SKIN EXAM: no rashes or lesions noted Data 11/01/24 04:00 11/01/24 04:00 A&P Assessment and plan (1) Acute hypoxic respiratory failure: (2) Sepsis: (3) Right lower lobe pneumonia: (4) COPD (chronic obstructive pulmonary disease): (5) Pulmonary hypertension: (6) Diastolic heart failure: (7) Uncontrolled type 2 diabetes mellitus: (8) Sleep apnea treated with nocturnal BiPAP: (9) Chest pain: Plan Maya Figueroa is a 53 yo woman w/ metabolic syndrome and VIVIAN on BiPAP, who presented to the ED on 10/29/2024 with complaints of progressive dyspnea, chest pain, and nonproductive cough. #Acute on chronic hypoxic hypercapneic respiratory failure: Most likely in setting of COPD exacerbation along with mild acute decompensated diastolic heart failure along with right lower lobe pneumonia. Echocardiogram shows an EF of 60%, mild pulmonary hypertension with PASP of 35 to 40 mmHg. Ox supplementation keeping saturation of 88%. Continue with nightly BiPAP. Wean Solu-Medrol 40 mg every 8 hourly Pulmicort twice daily, DuoNeb every 4 hour. Given concerns for diastolic heart failure continue with IV Lasix 40 mg twice daily. Strict input output charting. Fluid restriction to less than 1500 cc. Oral metolazone 5 mg one-time. Sepsis due to R. LL pneumonia: Along with concerns for enterovirus/rhinovirus infection. SIRS: Tachycardic, Febrile, Leukocytosis Source: Right lower lobe pneumonia End organ damage: Acute hypoxic respiratory failure Lactic acid within normal limits Patient did not receive full 30 mL/kg BW given concerns for diastolic heart failure. Monitor blood pressures. Keep mean artery pressure 65 mmHg. Follow-up blood culture, positive MRSA swab, pending sputum culture, appreciate trend procalcitonin. Continue with treatment for community-acquired pneumonia with possibility of aspiration pneumonia. Continue azithromycin for atypical coverage. Along with IV Zosyn and vancomycin. Aggressive pulmonary toilet with I-S and Acapella. Chest pain: Less likely cardiac. Troponin cycled negative. Echocardiogram negative for regional wall motion abnormality. No concern for PE as D-dimer negative. Most likely in setting of pneumonia along with COPD exacerbation. Continue baby aspirin, statin. Appreciate A1c, lipid panel. Type 2 diabetes mellitus: A1c of 10. Uncontrolled. Takes high-dose Lantus 85 units daily, lispro 40 units 3 times daily, glimepiride, Mounjaro, metformin at home. Insulin sliding scale at high dose protocol. Add lispro 15 units 3 times daily along with sliding scale. Continue Lantus 40 units twice daily. Restart other home chronic medications including baclofen, benztropine, ilaprazole, gabapentin, nortriptyline, Requip. Out of bed to chair Full code Carb consistent cardiac diet. Modified barium swallow. Protonix for PUD prophylaxis Lovenox for DVT prophylaxis. Plan for the day: Hypoxic respiratory failure in setting of diastolic heart failure along with concerns for lower lobe pneumonia in setting of rhinovirus infection. Continue with aggressive IV diuresis with Lasix 40 mg twice daily. Renal function stable. Watch for contraction alkalosis. Wean Solu-Medrol 40 mg IV daily. Blood sugars elevated. Increase Humalog to 25 3 times daily along with sliding scale as moderate dose. Continue with Lantus 40 units twice daily. Sputum culture collected. Blood cultures so far negative. MRSA swab positive. Continue the vancomycin and Zosyn. Finish 3-day course of azithromycin. Nebulization treatment. Discharge plan: Continues to remain on minimal oxygen for next 24 hours can plan to discharge on Oral diuretics, steroid taper along with nebulization treatment and antibiotic as an outpatient. Awaiting modified barium swallow. PDMP PDMP Reviewed: Not Reviewed Attestations 2 Medical Necessity Statement*: Requires further hospitalization for management of acute hypoxic respiratory failure in setting of diastolic heart failure, COPD exacerbation due to enterovirus infection Diagnoses Acute hypoxic respiratory failure J96.01 Sepsis A41.9 Right lower lobe pneumonia J18.9 COPD (chronic obstructive pulmonary disease) J44.9 Pulmonary hypertension I27.20 Diastolic heart failure I50.30 Uncontrolled type 2 diabetes mellitus Sleep apnea treated with nocturnal BiPAP G47.30 Chest pain R07.9 Chest pain type: unspecified
[2024-11-01 13:48] LABS: Glucose Point of Care 349 mg/dL (70-110)
[2024-11-01 16:33] LABS: Glucose Point of Care 285 mg/dL (70-110)
[2024-11-01] MEDS: nystatin powder 30 gm Btl 1 APPLIC TOPICAL (17:07)
[2024-11-01 17:44] LABS: Glucose Point of Care 214 mg/dL (70-110)
[2024-11-01 20:21] LABS: Glucose Point of Care 97 mg/dL (70-110)
[2024-11-01] MEDS: atorvastatin 40 mg Tablet PO (20:33)
[2024-11-01] MEDS: sennosides 8.6 mg Tablet 17.2 MG PO (20:33)
[2024-11-01] MEDS: nortriptyline 25 mg Capsule 75 MG PO (20:33)
[2024-11-01] MEDS: ropinirole 1 mg Tablet 2 MG PO (20:33)
[2024-11-01] MEDS: AZITHROMYCIN ADD-Vantage 500 MG in 0.9% NaCl ADD-Vantage 250 ML 250 MG IV (20:36)
[2024-11-02] VITALS: BP 114/64; PULSE 87; RESP 16; TEMP 36.6; O2SAT 94
[2024-11-02 00:08] LABS: Glucose Point of Care 148 mg/dL (70-110)
[2024-11-02 02:25] VITALS: PULSE 98; RESP 18; O2SAT 91
[2024-11-02] MEDS: ipratropium-albuterol 3 mL Neb INHALATION ×2 (02:27→08:23)
[2024-11-02 03:43] LABS: Basophils # 0.1 10^3/uL (0.0-0.1); Basophils % 0.7 %; Eosinophils # 0.1 10^3/uL (0.0-0.8); Eosinophils % 0.6 %; Hematocrit 35.6 % (36-47); Lymphocytes # 2.4 10^3/uL (0.8-4.8); Lymphocytes % 23.4 %; Mean Corpuscular HGB Conc 29.8 g/dL (30-55); Mean Corpuscular Volume 80.7 fl (85-98); Mean Platelet Volume 10.2 fL (7.4-10.4); Monocytes # 0.7 10^3/uL (0.2-0.9); Monocytes % 7.2 %; Neutrophils # 6.93 10^3/uL (1.8-7.7); Neutrophils % 67.5 %; Nucleated Red Blood Cells % 0 %; Platelet Count 265 10^3/cmm (157-399); Red Blood Count 4.41 10^6/uL (3.85-5.65); Red Cell Distribution Width 19.4 % (12.1-15.1); White Blood Count 10.26 10^3/uL (3.29-11.43)
[2024-11-02] MEDS: FUROsemide 10 mg/mL SDV 4mL 40 MG IVP (03:45)
[2024-11-02 03:55] LABS: Glucose Point of Care 160 mg/dL (70-110)
[2024-11-02 03:58] VITALS: BP 145/68; PULSE 93; RESP 18; TEMP 36.4; O2SAT 94
[2024-11-02 04:02] LABS: Vancomycin Trough 14.4 ug/mL (10-15)
[2024-11-02 04:06] LABS: Alanine Aminotransferase 43 U/L (0-33); Albumin Level 3.7 g/dL (3.5-5.2); Alkaline Phosphatase 150 U/L (35-105); Anion Gap 16.9 (5-19); Aspartate Amino Transferase 82 U/L (0-32); Blood Urea Nitrogen 34 mg/dL (6-20); Calcium 9.9 mg/dL (8.5-10.5); Carbon Dioxide 29 mmol/L (22-29); Chloride 95 mmol/L (98-107); Creatinine Clr Calc Pharmacy 88.7778; Glucose 130 mg/dL (65-115); Magnesium 1.8 mg/dL (1.7-2.3); Osmolality Calculated 293 mOsm/kg (285-295); Phosphorus 4.2 mg/dL (2.5-4.5); Potassium 3.9 mmol/L (3.5-5.1); Sodium 137 mmol/L (136-145); Total Bilirubin 0.4 mg/dL (0.15-1.2); Total Protein 7.7 g/dL (6.6-8.7)
[2024-11-02] MEDS: pantoprazole 40 mg SDV IVP (05:00)
[2024-11-02] MEDS: vancomycin 2,000 MG/400 ML PIGGYBACK 200 MG IV (05:00)
[2024-11-02 06:28] LABS: Glucose Point of Care 188 mg/dL (70-110)
[2024-11-02] MEDS: piperacillin-tazobactam 3.375 GM in sodium chloride 0.9% (plus) 50 ML IV (07:41)
--- NOTE | 2024-11-02 07:54 | PM.DCS ---
Discharge Providers Date of Admission: 10/29/24 23:55 Date of Discharge: November 02, 2024 Attending Provider at Admission: Carole Romero MD Attending Provider at Discharge: Jeremias William MD Primary Care Provider: Andrea Ren DO Diagnoses at Discharge Discharge Diagnosis (1) Acute hypoxic respiratory failure: Status: Acute (2) Sepsis: Status: Acute (3) Right lower lobe pneumonia: Status: Acute (4) COPD (chronic obstructive pulmonary disease): Status: Acute (5) Pulmonary hypertension: Status: Acute (6) Diastolic heart failure: Status: Acute (7) Uncontrolled type 2 diabetes mellitus: Status: Acute (8) Sleep apnea treated with nocturnal BiPAP: Status: Acute (9) Chest pain: Status: Inactive Qualifiers: Chest pain type: unspecified Qualified Code(s): R07.9 - Chest pain, unspecified Reason for Visit Reason for Visit: cp Brief History: History as per HPI: 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 She states that starting Saturday night, she was just sitting at home watching TV, when she started having non-radiating, non pleuritic substernal CP. With the chest pain, she developed a non-productive cough. She went to [facility] in [place], where tests were done in the ED and she was told that her lungs were full of fluid and that she needed an ECHO. She was given Lasix and an antibiotic. She believes that it was Omnicef. She states that the CP lasted 4 hours. SHe states that since Saturday, she has had the CP intermittently that is 4-5/10 and resolves to a 2-3/10 after approx an hour. She could not lie down to sleep because of the chest pain. Sitting straight up made it better. Today, her non-productive cough was much worse; she felt increasingly dyspneic, and her chest pain was worse at a 6/10. She checked her O2 sat and it was 83% on RA w/ a HR >100s and a BP of 153/71mmHg. She had a post-hospitalization follow up So, he went to her PCP's nurse practitioner, where her dose of Lasix was doubled and an ECHO was ordered. She says that took the dose of Lasix but she did not urinate much with it. Not feeling better, she presented to the ED. She endorses fatigue, generalized weakness, wheezing, transient double vision, 3 episodes watery diarrhea on 10/28/2024. She denies any fever, chills, abd pain, n/v. She has had an EGD/Colonoscopy. Her colonoscopy on 06/15/2024 In the ED, she was tachycardic and hypoxic requiring 2 L NC. Her labs showed no leukocytosis, but showed transaminitis. Her EKG showed sinus tachycardia with no ST changes and QTc of 451. Her Trop T was minimally elevated. She had CP, so they placed nitro on her chest. A CT chest was done that showed R. LL pneumonia vs R. thoracic hilar adenopathy. On arrival to the floor, she had CP that now started to radiate to the R. upper chest wall twice, and each episode of CP resolved on it's own. With the chest pain, she also became increasingly hypoxemic and her nasal cannula was increased from 2-4 L NC. She was given Rocephin 1 g, azithromycin 500 mg, and Lasix 80 mg IVP x 1. Hospital Course Hospital Course Patient was admitted to the hospital for the evaluation and management of acute hypoxic respiratory failure in setting of diastolic heart failure along with COPD exacerbation. There is also concern for right lower lobe pneumonia. During hospitalization her cultures remain negative though respiratory viral panel was positive for rhinovirus. Echocardiogram was done given her complaint of chest pain. She was found to have a diastolic heart failure with a normal EF and no regional wall motion abnormality along with mild pulmonary hypertension with PASP of 35 to 40 mmHg. She was continued on aggressive IV diuresis, nebulization treatment IV antibiotics. She responded well to the treatment. During hospitalization she was found to have elevated blood sugar with an A1c of more than 10. Patient takes multiple antidiabetic medications including OHA's and insulins as an outpatient. She has been discharged in hemodynamically stable condition after home O2 evaluation on oral Bumex twice daily, nebulization treatment, oral steroids for 5 more days. Lisinopril has been changed to losartan. She is discharged on 5 days of linezolid and Levaquin. Her dose of Lantus has been changed from 85 units daily to 45 units twice daily for better bioavailability. She is discharged in medically stable condition advised to follow-up with a primary care provider within next 1 week. Physical Exam Const: GENERAL APPEARANCE: cooperative, comfortable, well kempt, well developed and well hydrated NUTRITIONAL APPEARANCE: overweight ORIENTATION/CONSCIOUSNESS: Yes awake, Yes oriented to person, Yes oriented to place and Yes oriented to time HENMT: COMMON NORMALS: normocephalic, atraumatic, external ears normal and Normal external nose present HEAD & SCALP: normocephalic and atraumatic NOSE: Normal external nose present EXTERNAL EAR: Yes external ears normal MOUTH: Normal oral and palatal mucosa present THROAT: posterior oropharynx normal Eye: COMMON NORMALS: Equal, round and reactive pupils present and conjunctivae normal CONJUNCTIVA: Yes conjunctivae normal PUPIL: Yes Equal, round and reactive pupils present EOM: No EOM abnormal Neck/C-Spine: COMMON NORMALS: Thyroid normal GENERAL: Yes normal visual inspection and Yes trachea midline THYROID: Thyroid normal CAROTIDS: No bruit CERVICAL SPINE: Yes cervical ROM normal Lymph: OTHER: No cervical or supra clavicular LAD Resp: OTHER: Bilateral bronchial breath sounds over lung alas occasional rhonchi, fine crackles present bilaterally in lower zone Cardio: OTHER: RRR, no m/r/g or clicks. 2+ DP or radial pulses bilaterally. GI: OTHER: Large round abdomen, BS+, NT, ND, no guarding, no rigidity, no acute rebound tenderness or hepatosplenomegaly. Extremity: GENERAL: No cyanosis and No deformity OTHER: She has mild edema in her bilateral lower extremities, but she does not have pitting edema. Neuro: SENSORIUM/ORIENTATION: Yes oriented to person, Yes oriented to place and Yes oriented to time CRANIAL NERVES: Yes CN normal except as noted SPEECH: speech normal SENSORY EXAM: No sensory level loss detected MOTOR EXAM: 5/5 motor strength present throughout Psych: COMMON NORMALS: Normal thought process present and speech normal APPEARANCE: Yes grossly normal and Yes well kempt ATTITUDE: Yes calm and Yes engaged ACTIVITY/MOTOR BEHAVIOR: Yes appropriate eye contact SPEECH: Yes normal speech MOOD & AFFECT: Yes euthymic mood THOUGHT PROCESS: Normal thought process present THOUGHT CONTENT: Yes Normal thought content present ATTENTION/CONCENTRATION: Yes attention grossly intact Skin: COMMON NORMALS: no rashes or lesions noted GENERAL SKIN EXAM: no rashes or lesions noted Discharge Data Studies Completed and Pending Completed Studies During Hospitalization Category Date Time Status CT chest wo con [id number] Stat Cat Scan 10/29/24 22:14 Completed XR chest 1V portable [id number] Stat Exams 10/29/24 20:44 Completed CV. echo complete* [id number] Routine Ultrasound 10/30/24 04:35 Completed US abdomen limited [id number] Routine Ultrasound 10/30/24 08:00 Completed US venous duplex lower extremity bilat [CV venous Ultrasound 10/30/24 04:30 [place] [id number]] Routine Pending at discharge Category Date Time Status FL barium swallow modifd [id number] Routine Exams 11/02/24 09:00 Ordered Blood Culture Stat Lab 10/29/24 20:55 Results Sputum Culture and Gram Stain Stat Lab 10/30/24 10:26 Uncollected Radiology Impressions Chest X-Ray 10/29/24 20:44 IMPRESSION: There are no acute concerning abnormalities. Chest CT 10/29/24 22:14 IMPRESSION: There is consolidation in the right lower lobe of the lung consistent with pneumonia. Post obstructive pneumonitis secondary to right thoracic hilar adenopathy would also be a consideration. Follow-up is recommended to ensure expected resolution. Abdomen Ultrasound 10/30/24 08:00 IMPRESSION: 1. Marked hepatomegaly with hepatic steatosis. The entire liver not visualized due to body habitus. 2. Prior cholecystectomy. 3. No hepatobiliary duct dilatation. Echocardiogram: CONCLUSIONS Tachycardia during the study Normal left ventricular size and function. LVEF normal at 65%. Mildly dilated left atrium No significant valvular abnormality noted. Mildly elevated right heart and pulmonary pressures (35-40 mmhg). Microbiology 10/29/24 20:55 Blood Blood Culture - Preliminary NEGATIVE TO DATE 10/29/24 20:50 Blood Blood Culture - Preliminary NEGATIVE TO DATE 10/30/24 17:08 Stool - Stool Aspirate Occult Blood (FIT) - Final Laboratory Results WBC 10.26 10^3/uL (3.29-11.43) 11/02/24 02:04 RBC 4.41 10^6/uL (3.85-5.65) 11/02/24 02:04 Hgb 10.60 g/dL (11.27-16.99) L 11/02/24 02:04 Hct 35.6 % (36-47) L 11/02/24 02:04 MCV 80.7 fl (85-98) L 11/02/24 02:04 MCH 24.0 pg (27-33) L 11/02/24 02:04 MCHC 29.8 g/dL (30-55) L 11/02/24 02:04 RDW 19.4 % (12.1-15.1) H 11/02/24 02:04 Plt Count 265 10^3/cmm (157-399) 11/02/24 02:04 MPV 10.2 fL (7.4-10.4) 11/02/24 02:04 Neut % (Auto) 67.5 % 11/02/24 02:04 Lymph % (Auto) 23.4 % 11/02/24 02:04 [place] % (Auto) 7.2 % 11/02/24 02:04 Eos % (Auto) 0.6 % 11/02/24 02:04 Baso % (Auto) 0.7 % 11/02/24 02:04 Neut # (Auto) 6.93 10^3/uL (1.8-7.7) 11/02/24 02:04 Lymph # (Auto) 2.4 10^3/uL (0.8-4.8) 11/02/24 02:04 [place] # (Auto) 0.7 10^3/uL (0.2-0.9) 11/02/24 02:04 Eos # (Auto) 0.1 10^3/uL (0.0-0.8) 11/02/24 02:04 Baso # (Auto) 0.1 10^3/uL (0.0-0.1) 11/02/24 02:04 Nucleated RBC % (auto) 0 % 11/02/24 02:04 Nucleated RBCs # 0.0 /100WBC 11/02/24 02:04 PT 14.60 SECONDS (12.1-14.9) 10/30/24 06:20 INR 1.07 (0.8-1.2) 10/30/24 06:20 APTT 32.9 SECONDS (23.9-36.7) 10/30/24 06:20 D-Dimer 0.49 ug/mLFEU (0-0.59) 10/29/24 20:50 Specimen Type Arterial 05/15/25 21: Sample Site Radial, right 10/29/24: ABG pH 7.41 (7.35-7.45) 10/29/24: ABG pCO2 46.8 mmHg (35-45) H 10/29/24: ABG pO2 63.3 mmHg (80.0-100.0) L 10/29/24: ABG HCO3 29.3 mmol/L (22-26) H 10/29/24: ABG O2 Saturation 93.0 10/29/24: ABG Base Excess 3.9 mmol/L (-2.0-2.0) H 10/29/24: Yves Test Pos 10/29/24: A-a O2 Gradient 3.6 mmHg (5-10) L 10/29/24: Hematocrit 33.2 % (37-47) L 10/29/24: Hgb O2 Saturation 91.2 % (95-100) L 10/29/24: Carboxyhemoglobin 1.7 %THgb (0.4-20.1) 10/29/24 21: Methemoglobin 0.3 % (0.4-1.5) L 10/29/24: Total Hemoglobin 10.8 g/dL (12-16) L 10/29/24 21: Sodium 141.0 mmol/L (131-143) 10/29/24 21: Potassium 3.9 mmol/L (3.5-5.0) 10/29/24: Glucose 280.0 mg/dL (70-115) H 10/29/24: Ionized Calcium 1.2 mmol/L (1.1-1.4) 10/29/24: O2 Delivery Device Nc 10/29/24: O2 Liters/Min 2.0 % 10/29/24: [employer] ID [email or web address] 10/29/24 21: Sodium 137 mmol/L (136-145) 11/02/24 02:04 Potassium 3.9 mmol/L (3.5-5.1) 11/02/24 02:04 Chloride 95 mmol/L (98-107) L 11/02/24 02:04 Carbon Dioxide 29 mmol/L (22-29) 11/02/24 02:04 Anion Gap 16.9 (5-19) 11/02/24 02:04 BUN 34 mg/dL (6-20) H 11/02/24 02:04 Creatinine 1.0 mg/dL (0.5-0.9) H 11/02/24 02:04 GFR Calculation 58.0 mL/min (90-130) L 11/02/24 02:04 Glucose 130 mg/dL (65-115) H 11/02/24 02:04 POC Glucose 188 mg/dL (70-110) H 11/02/24 06:26 Estimat Average Glucose 240 10/30/24 06:06 Hemoglobin A1c 10.0 % (4.0-6.0) H 10/30/24 06:06 Calculated Osmolality 293 mOsm/kg (285-295) 11/02/24 02:04 Lactic Acid 1.7 mmol/L (0.5-2.2) 10/29/24 20:50 Calcium 9.9 mg/dL (8.5-10.5) 11/02/24 02:04 Phosphorus 4.2 mg/dL (2.5-4.5) 11/02/24 02:04 Magnesium 1.8 mg/dL (1.7-2.3) 11/02/24 02:04 Iron 28 ug/dL (37-145) L 10/30/24 06:06 TIBC 298 mcg/dl 10/30/24 06:06 % Saturation 9.3 % (20-50) L 10/30/24 06:06 Unsat Iron Binding 270 ug/dL (112-347) 10/30/24 06:06 Total Bilirubin 0.4 mg/dL (0.15-1.2) 11/02/24 02:04 AST 82 U/L (0-32) H 11/02/24 02:04 ALT 43 U/L (0-33) H 11/02/24 02:04 Alkaline Phosphatase 150 U/L (35-105) H 11/02/24 02:04 Troponin T Baseline 12 ng/L (0-10) H 10/29/24 20:50 Troponin T 120 Minute 12.67 ng/L (0-10) H 10/29/24 23:02 Delta Troponin T 0.67 ABS# (0-10) 10/29/24 23:02 Troponin T Hi Sens 6Hr 12.29 ng/L (0-10) H 10/30/24 03:47 Troponin T Hi Sens 6Hr Delta 0.29 ng/L (0-12) 10/30/24 03:47 NT-Pro-B Natriuret Pep 201 pg/mL (0-125) H 10/29/24 20:50 Total Protein 7.7 g/dL (6.6-8.7) 11/02/24 02:04 Albumin 3.7 g/dL (3.5-5.2) 11/02/24 02:04 Globulin 4.0 g/dL (1.3-4.6) 11/02/24 02:04 Triglycerides 142 mg/dL (0-150) 10/31/24 04:22 Cholesterol 147 mg/dL (0-200) 10/31/24 04:22 LDL Cholesterol, Calc 86 mg/dL (50-129) 10/31/24 04:22 Total VLDL Cholesterol 28 mg/dL (0-30) 10/31/24 04:22 HDL Cholesterol 33 mg/dL (60-100) L 10/31/24 04:22 LDL/HDL Ratio 1.84 RATIO (0.00-3.22) 10/30/24 06:06 Cholesterol/HDL Ratio 4.45 mg/dL (0.0-4.40) H 10/31/24 04:22 Vitamin B12 522 pg/mL (232-1245) 10/30/24 06:06 Folate 7.6 ng/mL (4.8-37.3) 10/31/24 04:22 Procalcitonin 0.26 ng/mL (0-0.5) 10/30/24 06:06 TSH 5.32 uIU/mL (0.27-4.20) H 10/30/24 06:06 Nasal MRSA (PCR) Mrsa detected (Not Detecte) A 10/30/24 16:25 Vancomycin Trough 14.4 ug/mL (10-15) 11/02/24 02:04 Adenovirus (PCR) Not detected (NOT DETECT) 10/30/24 05:34 C. pneumoniae DNA (PCR) Not detected (NOT DETECT) 10/30/24 05:34 Coronavirus 229E (PCR) Not detected (NOT DETECT) 10/30/24 05:34 Human Metapneumovir PCR Not detected (NOT DETECT) 10/30/24 05:34 Influenza A (H1) PCR Not detected (NOT DETECT) 10/30/24 05:34 Influ A (H1/09) PCR Not detected (NOT DETECT) 10/30/24 05:34 Influenza A (H3) PCR Not detected (NOT DETECT) 10/30/24 05:34 Influenza Type A (PCR) Not detected (NOT DETECT) 10/30/24 05:34 Influenza Type B (PCR) Not detected (NOT DETECT) 10/30/24 05:34 M. pneumoniae (PCR) Not detected (NOT DETECT) 10/30/24 05:34 Parainfluenza 1 (PCR) Not detected (NOT DETECT) 10/30/24 05:34 Parainfluenza 2 (PCR) Not detected (NOT DETECT) 10/30/24 05:34 Parainfluenza 3 (PCR) Not detected (NOT DETECT) 10/30/24 05:34 Parainfluenza 4 (PCR) Not detected (NOT DETECT) 10/30/24 05:34 RSV Type A (PCR) Not detected (NOT DETECT) 10/30/24 05:34 RSV Type B (PCR) Not detected (NOT DETECT) 10/30/24 05:34 Entero/Rhino (PCR) Detected (NOT DETECT) A 10/30/24 05:34 SARS-CoV-2 (PCR) Not detected (NOT DETECT) 10/30/24 05:34 Vitals Last Vital Signs Temp 97.5 F L 11/02/24 03:58 Pulse 93 11/02/24 03:58 Resp 18 11/02/24 03:58 BP 145/68 11/02/24 03:58 Pulse Ox 94 11/02/24 03:58 O2 Del Method CPAP 11/02/24 03:58 O2 Flow Rate 1 11/02/24 02:25 FiO2 34 10/30/24 07:50 Discharge Plan Discharge Patient Disposition: Home Condition: Stable Prescriptions: New losartan 50 mg tablet 50 mg PO DAILY Qty: 30 0RF levofloxacin 750 mg tablet 750 mg PO Q24H 5 Days Qty: 5 0RF linezolid 600 mg tablet 600 mg PO Q12H 5 Days Qty: 10 0RF prednisone 20 mg tablet 20 mg PO BID 5 Days Qty: 10 0RF Continued Jardiance 25 mg tablet 25 mg PO QAM Linzess 290 mcg capsule 290 mcg PO QAM montelukast [Singulair] 10 mg tablet 10 mg PO DAILY pantoprazole [Protonix] 40 mg tablet,delayed release (DR/EC) 40 mg PO BID ropinirole 1 mg tablet 2 mg PO BEDTIME meclizine [Dramamine (meclizine)] 25 mg tablet 25 mg PO TID PRN (Reason: motion sickness) Qty: 20 0RF ondansetron 4 mg tablet,disintegrating 4 mg PO Q6H PRN (Reason: nausea and vomiting) Qty: 12 0RF Rx Instructions: 340b please venlafaxine [Effexor XR] 150 mg capsule,extended release 24hr 150 mg PO QAM 30 Days Qty: 30 5RF metformin 1,000 mg 1,000 mg PO BID acetaminophen 500 mg Tablet 500 mg PO QID PRN (Reason: Pain) atorvastatin 40 mg 40 mg PO BEDTIME gabapentin 600 mg Tablet 800 mg PO TID Rx Instructions: Take 2 400mg capsules by mouth 3 times a day cetirizine 10 mg Tablet 10 mg PO DAILY baclofen 10 mg 5 mg PO BID docusate sodium 100 mg 100 mg PO BID epinephrine 0.3 mg 0.3 mg IM PRN PRN (Reason: anaphylaxis) glimepiride 4 mg 4 mg PO BID hydrochlorothiazide 12.5 mg 25 mg PO QAM venlafaxine 75 mg capsule,extended release 24hr 75 mg PO DAILY cholecalciferol (vitamin D3) 10 mcg (400 unit) Tablet See Rx Instructions .ROUTE .COMPLEX Rx Instructions: Patient does not know current dose. Patient states that she takes Vit D3 daily. insulin lispro [Humalog KwikPen Insulin] 100 unit/mL insulin pen See Rx Instructions .ROUTE .COMPLEX Rx Instructions: sliding scale dose subcutaneously tid with meals Mounjaro 15 mg/0.5 mL pen injector 15 mg SUBCUT Q7D Rx Instructions: Unknown doseage. hydroxyzine pamoate 50 mg capsule 50 mg PO BEDTIME nortriptyline 25 mg capsule 75 mg PO BEDTIME benztropine 1 mg tablet 1 mg PO BID aripiprazole 20 mg tablet 20 mg PO DAILY bumetanide 1 mg tablet 1 mg PO BID Rx Instructions: Take for 10 days Hold Furosemide and HCTZ Start date was supposed to be 10/29/24 azelastine 137 mcg (0.1 %) [place],Non-Aerosol 2 spray INTRANASAL BID Rx Instructions: administer into each nostril albuterol sulfate 90 mcg/actuation HFA aerosol inhaler 90 mcg INHALATION Q4H PRN (Reason: Shortness Of Breath Or Wheezing) famotidine 40 mg tablet 40 mg PO BEDTIME methenamine hippurate 1 gram tablet 1 g PO BID ferrous sulfate [FeroSul] 325 mg (65 mg iron) tablet 325 mg PO EVERY OTHER DAY Rx Instructions: Take with vitamin C mometasone 50 mcg/actuation spray,non-aerosol 50 mcg INTRANASAL DAILY Rx Instructions: Administer 2 sprays in each nostril daily estradiol 0.01 % (0.1 mg/gram) cream 1 g VAGINAL PRN Rx Instructions: See administration instructions diclofenac sodium 1 % gel 2 g TOPICAL QID Rx Instructions: apply to affected area fesoterodine 4 mg Tablet Extended Release 24 Hr 4 mg PO DAILY Emgality Pen 120 mg/mL pen injector 120 mg SUBCUT Q30D prucalopride [Motegrity] 2 mg tablet 2 mg PO DAILY Changed insulin glargine [Lantus Solostar U-100 Insulin] 100 unit/mL (3 mL) insulin pen 45 unit SUBCUT BID Qty: 3 0RF Discontinued lisinopril 5 mg tablet 5 mg PO DAILY amlodipine 10 mg Tablet 10 mg PO DAILY cefdinir 300 mg capsule 300 mg PO BID Rx Instructions: Start on 10/28/24 fluconazole 150 mg tablet 150 mg PO DAILY diclofenac sodium 50 mg tablet,delayed release (DR/EC) 50 mg PO BID Discharge Orders: Discharge Order (Routine); Ordered 11/02/24 Ordered By: Jeremias William Other Ambulatory Orders: DME: Oxygen (Order) Location: None Selected Ordered By: Jeremias William Referrals: Andrea Ren DO [Primary Care Provider] - 11/11/24 11:20 am Discharge Diet: Cardiac and Diabetic Discharge Activity: Resume usual activity and Increase activity as tolerated Patient Instructions: Prednisone (By mouth), Losartan (By mouth), Levofloxacin (By mouth) (Levaquin, Levaquin Leva-steven), Linezolid (By mouth), Using Oxygen at Home (GEN), Opioid Safety Activity Restrictions/Additional Instructions: Restrict fluid intake to less than 1500 cc, salt intake to less than 2 g daily. Advised to check his weight daily at home. Is advised that weight today would be the dry weight and if body weight increases by around 5 pounds, patient is to take an extra dose of Bumex daily till body weight comes down to weight today. If not able to come down to dry body weight in 1 week, then is to call cardiology office for further recommendations. Patient was counseled in detail to take medications regularly as prescribed. Your home dose of amlodipine, lisinopril, diclofenac has been discontinued. Instead take losartan 50 mg oral daily. Check your blood pressure daily at home. Goal blood pressures less than 140/90 mmHg. Dose of Lantus has been changed from 85 units once a day to 45 units twice a day for better bioavailability. Linezolid and Levaquin are the antibiotic which is supposed to take for next 5 days. Linezolid twice a day and Levaquin is once a day. Take prednisone 40 mg daily for next 5 days as steroids. While on steroids your blood sugars will be slightly elevated. Blood sugars will be better controlled after 3 to 4 days of stopping your oral steroids. Discharge Attestations Time Spent in Discharge Care*: greater than 30 min Specific Discharge Activities: educating patient, discussing with pcp/other providers, discussing with leather case finisher/social workers/dc planners, documenting/other paperwork and evaluating patient/reviewing data Status at Discharge: Cognitive status at discharge: cognitively intact, Behavioral status at discharge: cooperative, Functional status at discharge: independent ambulation, Overall status at discharge: patient is back to baseline Quality Metrics Clinical Quality Measures [ No reported AMI, CVA or VTE this stay] Coding Level of Care Code 07455 Total time (in minutes) for Discharge: 65 Diagnoses Acute hypoxic respiratory failure J96.01 Sepsis A41.9 Right lower lobe pneumonia J18.9 COPD (chronic obstructive pulmonary disease) J44.9 Pulmonary hypertension I27.20 Diastolic heart failure I50.30 Uncontrolled type 2 diabetes mellitus Sleep apnea treated with nocturnal BiPAP G47.30 Chest pain R07.9 Chest pain type: unspecified
[2024-11-02] MEDS: benztropine 1 mg Tablet PO (07:57)
[2024-11-02] MEDS: gabapentin 300 mg Capsule 600 MG PO (07:57)
[2024-11-02] MEDS: ARIPiprazole 10 mg Tablet 20 MG PO (07:58)
[2024-11-02] MEDS: aspirin 81 mg Chew Tablet PO (07:58)
[2024-11-02] MEDS: enoxaparin 40 mg/0.4 mL Syringe SUBCUT (07:58)
[2024-11-02] MEDS: insulin glargine 100 units/1 mL 40 UNIT SUBCUT (07:58)
[2024-11-02] MEDS: methylPREDNISolone sod succ 40 mg/mL INJ IVP (07:59)
[2024-11-02] MEDS: insulin lispro 100 unit/1 mL SUBCUT ×2 (07:59→12:13)
[2024-11-02 08:00] VITALS: BP 135/72; PULSE 93; RESP 16; TEMP 36.9; O2SAT 93
[2024-11-02] MEDS: nystatin powder 30 gm Btl 1 APPLIC TOPICAL (08:00)
[2024-11-02] MEDS: baclofen 10 mg Tablet 5 MG PO (08:00)
[2024-11-02 08:24] VITALS: PULSE 96; RESP 18; O2SAT 95
[2024-11-02 08:41] VITALS: O2SAT 86; O2SAT 90; O2SAT 93
--- NOTE | 2024-11-02 09:23 | PC.NURSE ---
Addendum entered by Martha Machado LPN 11/02/24 11:04: This nurse called [facility] to get ETA on O2 delivery. They said there was an issue with the prescription, but once they got in lined out with Case Management, they would be over. Original Note: D/C pending meds to bed, delivery of home O2 and ride home.
[2024-11-02 10:31] LABS: Glucose Point of Care 277 mg/dL (70-110)
[2024-11-02] MEDS: insulin lispro 100 unit/1 mL 25 UNIT SUBCUT (10:58)
[2024-11-02 12:10] LABS: Glucose Point of Care 304 mg/dL (70-110)
== END 2024-11-02 13:36 | disposition home or self-care (01) | DRG 871 ==
LOC: ER 21:15 → MEDSURG 10-30 00:12
PROVIDERS: Admitting Provider Internal Medicine; Emergency Provider Emergency Medicine; PCP Family Medicine; Visit Provider Student in an Organized Health Care Education/Training Program
DX: A41.9 Sepsis, unspecified organism (principal); J18.9 Pneumonia, unspecified organism; J96.21 Acute and chronic respiratory failure with hypoxia; J96.22 Acute and chronic respiratory failure with hypercapnia; J44.1 Chronic obstructive pulmonary disease with (acute) exacerbation; J44.0 Chronic obstructive pulmonary disease with (acute) lower respiratory infection; I50.30 Unspecified diastolic (congestive) heart failure; Z68.42 Body mass index [BMI] 45.0-49.9, adult; R65.20 Severe sepsis without septic shock; I27.20 Pulmonary hypertension, unspecified; E11.9 Type 2 diabetes mellitus without complications; G47.33 Obstructive sleep apnea (adult) (pediatric); E88.810 Metabolic syndrome; B34.8 Other viral infections of unspecified site; D64.9 Anemia, unspecified; I11.0 Hypertensive heart disease with heart failure; E78.5 Hyperlipidemia, unspecified; F41.1 Generalized anxiety disorder; F32.9 Major depressive disorder, single episode, unspecified; F43.10 Post-traumatic stress disorder, unspecified; G47.00 Insomnia, unspecified; K21.9 Gastro-esophageal reflux disease without esophagitis; G25.81 Restless legs syndrome; G43.909 Migraine, unspecified, not intractable, without status migrainosus; E66.01 Morbid (severe) obesity due to excess calories; Z87.440 Personal history of urinary (tract) infections; Z87.891 Personal history of nicotine dependence; Z79.85 Long-term (current) use of injectable non-insulin antidiabetic drugs; Z79.84 Long term (current) use of oral hypoglycemic drugs; Z79.4 Long term (current) use of insulin
CPT/HCPCS: 36415; 36416; 36600; 71045; 71250; 76705; 80051; 80053; 80061; 80202; 82274; 82330; 82607; 82746; 82805; 82962; 83036; 83540; 83550; 83605; 83735; 83880; 84100; 84145; 84443; 84484; 85025; 85378; 85610; 85730; 87040; 87486; 87581; 87633; 93005; 93306; 93970; 94640; 94660; 94760; 96365; 96372; 96375; 99285; J0456; J0696; J1650; J1815; J1938; J2270; J2470; J2543; J2919; J3372; J7030; J7050; J9999

== ENCOUNTER 2024-11-14 13:02 | Inpatient (IN) | payer OTHER, MEDICAID, SELFPAY ==
--- OUTSIDE RECORDS SUMMARY | 2023-09-30 09:15 | XMS_ITS | Continuity of Care Document ---
Author Organization [facility] Address [id number] [address] Phone Care Team Providers Care It Disaster Recovery Manager Name Role Phone Morris SHYANNE Eleazar Unavailable Unavailable Allergies, Adverse Reactions, Alerts Substance Reaction Status Criticality methocarbamol Active No Information Sulfa (Sulfonamide Antibiotics) Active No Information WARNIN allergy(ies) could not be collected because the type is not supported. Please contact the source practice for further details. Medications Medication Instructions Dosage Effective Dates (start - stop) Status Comments amlodipine 10 mg tablet take 1 tablet by oral route every day 10 MG - Active aripiprazole 20 mg tablet take 1 tablet by oral route every day 20 MG - Active atorvastatin 40 mg tablet take 1 tablet by oral route every day 40 MG - Active azelastine 137 mcg (0.1 %) nasal spray aerosol spray 2 spray by intranasal route 2 times every day in each nostril 274 MCG - Active baclofen 10 mg tablet take 1 tablet by oral route 3 times every day 10 MG - Active benztropine 0.5 mg tablet take 1 tablet by oral route 2 times every day 0.5 MG - Active cholecalciferol (vitamin D3) 1,250 mcg (50,000 unit) tablet take 1 tablet by oral route every week 1250 MCG - Active Dexcom G7 Customer Service Cashier - Active Dexcom G7 Sensor device - Active diclofenac 1 % topical gel apply 2 gram by topical route 4 times every day to the affected area(s) 2.00 gram - Active Emgality Pen 120 mg/mL subcutaneous pen injector inject (120MG) by subcutaneous route every month in the abdomen, thigh, outer upper arm, or buttocks 120 MG - Active famotidine 40 mg tablet take 1 tablet by oral route every day at bedtime 40 MG - Active fluconazole 150 mg tablet take 1 tablet by oral route once 150 MG - Active fluticasone propionate 50 mcg/actuation blister powder for inhalation inhale 2 puff by inhalation route 2 times every day 100 MCG - Active glimepiride 4 mg tablet take 1 tablet by oral route every day 4 MG - Active Gralise 300 mg tablet,extended release take 1 tablet by oral route once on day 1 of treatment 300 MG - Active hydrochlorothiazide 12.5 mg capsule take 1 capsule by oral route every day 12.5 MG - Active hydroxyzine HCl 50 mg tablet take 1 tablet by oral route 4 times every day 50 MG - Active ibuprofen 800 mg tablet take 1 tablet by oral route 3 times every day with food 800 MG - Active insulin aspart (U-100) 100 unit/mL (3 mL) subcutaneous pen inject by subcutaneous route per prescriber's instructions. Insulin dosing requires individualization. 0.00 - Active insulin glargine (U-100) 100 unit/mL (3 mL) subcutaneous pen inject by subcutaneous route per prescriber's instructions. Insulin dosing requires individualization. 0.00 - Active Jardiance 25 mg tablet take 1 tablet by oral route every day in the morning 25 MG - Active Linzess 290 mcg capsule take 1 capsule b y oral route every day on an empty stomach at least 30 minutes before 1st meal of the day 290 MCG - Active lisinopril 5 mg tablet take 1 tablet by oral route every day 5 MG - Active magnesium 250 mg (as magnesium oxide) tablet - Active metformin ER 1,000 mg tablet,extended release 24hr (osmotic) take 1 tablet by oral route every day with the evening meal 1000 MG - Active montelukast 10 mg tablet take 1 tablet b y oral route every day in the evening 10 MG - Active Motegrity 2 mg tablet take 1 tablet by oral route every day 2 MG - Active mupirocin 2 % topical ointment apply by topical route 3 times every day a small amount to the affected area 0.00 - Active nortriptyline 25 mg capsule take 1 capsule by oral route 3 times every day 25 MG - Active omeprazole 40 mg capsule,delayed release take 1 capsule by oral route every day before a meal 40 MG - Active ondansetron HCl 8 mg tablet take 1 tablet by oral route 2 times every day 8 MG - Active Ozempic 1 mg/dose (4 mg/3 mL) subcutaneous pen injector inject (1MG) by subcutaneous route every week on the same day of each week 1 MG - Active polyethylene glycol 3350 17 gram/dose oral powder - Active Rectiv 0.4 % (w/w) ointment - Active ropinirole 1 mg tablet take 1 tablet by oral route 3 times every day 1 MG - Active Stool Softener 100 mg capsule take 1 capsule by oral route every day at bedtime as needed 100 MG - Active Symjepi 0.3 mg/0.3 mL injection syringe inject 0.3 milliliter by intramuscular route once as needed for anaphylaxis - Active Tylophen 500 mg capsule take 2 capsule b y oral route every 6 hours as needed - Active venlafaxine 75 mg tablet take 1 tablet b y oral route 2 times every day with food 75 MG - Active venlafaxine ER 150 mg tablet,extended release 24 hr take 1 tablet by oral route every day in the morning at the same time each day with food 150 MG - Active Zyrtec 10 mg capsule - Active Procedures Procedure Date Post Op No Charge Denture Adjustment Post Op No Charge Complete Denture Maxillary Complete Denture Mandibular Wax Try-In Treatment Plan Complete Denture Bites And Records Denture Impression Secondary Lab Only Denture Impression Primary Panoramic Film Comprehensive Oral Evaluatio n New Or Established Caries Low Risk Exempt From Sealant Measure Advance Directives Directive Yes / No Effective Date File Name No Information Encounters Encounter Description Practice Location Reason(s) For Visit Diagnoses Date Provider Providers Copied on Encounter [facility], [id number] [facility], [place], [place], [id number], [place] tel:[phone] [facility] Encounter for dental exam and cleaning w/o abnormal findings [facility]. [address] [place], [address], [place]. tel:[phone] Referring Provider: Eleazar Morris, [address] [place], [address]. tel:[phone] [facility], [id number] [place] [place], [id number], [place] tel:[phone] [facility] Encounter for dental exam and cleaning w/o abnormal findings [facility]. [address] [place], [address], [place]. tel:[phone] Referring Provider: Eleazar Morris, [address] [place], [address]. tel:[phone] [facility], [id number] [id number], [place] tel:[phone] [facility] Encounter for dental exam and cleaning w/o abnormal findings [facility]. [address] [place], [address], [place]. tel:[phone] Referring Provider: Eleazar Morris, [address] [place], [address]. tel:[phone] [facility], [id number] [place] [place], [id number], [place] tel:[phone] [facility] Encounter for dental exam and cleaning w/o abnormal findings [facility]. [address] [place], [address], [place]. tel:[phone] Referring Provider: Eleazar Morris, [address] [place], [address]. tel:[phone] [facility], [id number] [id number], [place] tel:[phone] [facility] Encounter for dental exam and cleaning w/o abnormal findings Morris Eleazar. [address] [place], [address], [place]. tel:[phone] Referring Provider: Eleazar Morris, [address] [place], [address]. tel:[phone] [facility], [id number], [id number], [place] tel:[phone] [facility] No Information [facility]. [address] [place], [address], [place]. tel:[phone] Referring Provider: Eleazar Morris, [address] [place], [address]. tel:[phone] [facility], [id number], [id number], [place] tel:[phone] [facility] Encounter for dental exam and cleaning w/o abnormal findings [facility]. [address] [place], [address], [place]. tel:[phone] Referring Provider: Eleazar Morris, [address] [place], [address]. tel:[phone] [facility], [id number] [id number], [id number], [place] tel:[phone] [facility] Encounter for dental exam and cleaning w/o abnormal findings [facility]. [address] [place], [address], [place]. tel:[phone] Referring Provider: Eleazar Morris, [address] [place], [address]. tel:[phone] Family History Family Member Type Diagnosis Age At Onset No Information Payers Payer name Insurance type Covered constitution party ID Kelly ontiveros(marleni) Geovanny [facility] Advantage CI [id number] Social History Type Description Quantity Date Captured Comments Alcohol Use Details No Caffeine Use Details Unknown Tobacco Use Status No Information Smoking Status No Information Sex Female Gender Identity Female Chief Complaint And Reason For Visit No Information Reason For Referral Reason For Referral No Information History Of Present Illness Encounter Date Complaint History Of Prese nt Illness No Information Functional Status Date Functional Assessmen t No Information Instructions Date Instruction Additional Infor mation No Information Assessments Type Assessment Date No Information Patient Care Teams Name Effective Dates (start - stop) Status Members No Information
[2024-11-06 13:58] VITALS: BP 135/72; BMI 48.0
--- OUTSIDE RECORDS SUMMARY | 2024-11-12 15:00 | XMS_ITS | Encounter Summary ---
Author Organization [facility] Address [address] [place] [address] Care Team Providers Care Inspector Shells Name Role Phone Andrea Ren DO Primary Care Provider [phone] Reason for Referral * Respiratory (Routine) - Open Specialty Diagnoses / Procedures Referred By Liz herbert Referred To Contact Respiratory Therapy Diagnoses Hypoxemia Procedures PULMONARY FUNCTION TEST SD SPMTRY W/VC EXPIRATORY ASHOK W/WO MXML VOL VNTJ SD CO DIFFUSING CAPACITY SD PLETHYSMOGRAPHY LUNG VOLUMES W/WO AIRWAY RESIST Andrea Ren DO [address] [place] [id number] Phone: tel: fax: [facility] [address] [place] [address] Phone: tel: fax: Referral ID Status Reason Start Date Expiration Date Visits Re quested Visits Authorized [id number] Open 11/12/2024 12/13/2025 1 1 Reason for Visit * Reason Comments Memory Loss Leg Pain Back Pain Encounter Details Date Type Department Care Team (Latest Contact Info) Description 11/12/2024 3:00 PM CDT Office Visit [facility] [address], [place] [address] Andrea Ren, DO [address] [place] [id number] Peripheral edema (Primary Dx); Stage 3a chronic kidney disease (CMS/HCC); Hemorrhoids, unspecified hemorrhoid type; Diabetic polyneuropathy associated with type 2 diabetes mellitus; Migraine without aura and without status migrainosus, not intractable; Chronic right-sided low back pain with right-sided sciatica; Hypoxemia; Arthritis of both hands Social History Tobacco Use Types Packs/Day Years Used Date Smoking Tobacco: Former Cigarettes Q uit: 09/08/1988 Passive Smoke Exposure: Past Smokeless Tobacco: Never Alcohol Use Standard Drinks/Week Comments No 0 (1 standard drink = 0.6 oz pur e alcohol) Utility Needs Answer Date Recorded In the past 12 months has [employer], gas, oil, or water [employer] threatened to shut off services in your home? No 11/01/2023 Feeling Safe Answer Date Recorded Within the last year, have y ou been afraid of your partner or ex-partner? No 11/01/2023 Within the last year, have y ou been humiliated or emotionally abused in other ways by your partner or ex-partner? No Within the last year, have y ou been kicked, hit, slapped, or otherwise physically hurt by your partner or ex-partner? No 11/01/2023 Within the last year, have y ou been raped or forced to have any kind of sexual activity by your partner or ex-partner? No 11/01/2023 Social Connections Answer Date Recorded In a typical week, how many times do you talk on the telephone with family, friends, or neighbors? Three times a week 10/15 How often do you get togethe r with friends or relatives? Twice a week 11/01/2023 How often do you attend chur ch or mandaeism services? 1 to 4 times per year 11/01/2023 Do you belong to any clubs o r organizations such as worship groups, unions, fraternal or athletic groups, or school groups? No 11/01/2023 How often do you attend meet ings of the clubs or organizations you belong to? 1 to 4 times per year 11/01/2023 Are you , , di vorced, , never , or living with a partner? 11/01/2023 Financial Resource Strain Answer Date R ecorded How hard is it for you to pa y for the very basics like food, housing, medical care, and heating? Not very hard 11/01/2023 Food Insecurity Answer Date Recorded In the past 12 months, have you worried that your food would run out before you had money to buy more? Sometimes true 2023 In the past 12 months, did y ou run out of food and didn't have money to buy more? Sometimes true 11/01/2023 Transportation Needs Answer Date Record ed In the past 12 months, has l ack of transportation kept you from medical appointments or from getting medications? No 10/15 In the past 12 months, has l ack of transportation kept you from meetings, work, or from getting things needed for daily living? No 11/01/2023 Housing Stability Answer Date Recorded In the last 12 months, was t here a time when you were not able to pay the mortgage or rent on time? Yes 11/01/2023 Number of Times Moved in the Last Year Not on fi le 11/01/2023 Unstable Housing in the Last Year Not on file 11/01/2023 Feeling Safe Answer Date Recorded Are you in a relationship wi th someone who hurts you emotionally and/or physically? No 10/27/2024 Comments No Sex and Gender Information Value Date Recorded Sex Assigned at Not on file Legal Sex Female 2:33 AM [employer] Gender Identity Not on file Sexual Orientation Not on file documented as of this encounter Last Filed Vital Signs Vital Sign Reading Time Taken Comments Blood Pressure 112/62 11/12/2024 3:28 PM CDT Pulse 98 11/12/2024 3:28 PM CDT Temperature 36.1 C (96.9 F) 11/12/2024 3:28 PM CDT Respiratory Rate 20 11/12/2024 3:28 PM CDT Oxygen Saturation 97% 11/12/2024 3:2 8 PM CDT 2 Liters O2 Inhaled Oxygen Concentration - - Weight 123.5 kg (272 lb 3.2 oz) 11/12/2024 3:28 PM CDT Height 167.6 cm (5' 6 ) 11/12/2024 3:28 PM CDT Body Mass Index 43.93 11/12/2024 3:28 PM CDT documented in this encounter Progress Notes * Andrea Ren - 11/12/2024 3:35 PM CDT Chief Complaint Patient presents with Memory Loss Leg Pain Back Pain SUBJECTIVE: History of Present Illness The patient presents for follow-up of memory loss, musculoskeletal pain, constipation, hemorrhoids,and back pain. Leg Pain - Severe leg pain localized to the lower extremities, unresponsive to ibuprofen and Tylenol - Mild leg swelling noted, managed with an additional diuretic dose yesterday - Currently on ropinirole, gabapentin (two tablets three times daily), and diclofenac 50 mg Oxygen Intake - Gradually reducing oxygen intake, maintaining 96% saturation - Uses BiPAP, currently on 2 L/min oxygen, considering reduction to 1.5 L/min Congestive Heart Failure and COPD - Diagnosed with congestive heart failure and COPD - Seeks advice on resuming driving out of town Weight Gain - Gained a few pounds, currently on tirzepatide, metformin, Jardiance, glimepiride, and insulin - Quit drinking Mountain Dew, now drinking Sprite and water - Needs advice on increasing water intake Yeast Infection - Reports yeast infection likely due to recent antibiotic use Hemorrhoids and Constipation - Needs treatment for hemorrhoids, experiencing constipation - Hemorrhoids bleeding slightly due to excessive wiping Back Pain - Experiencing middle back pain, queries if residual pneumonia is the cause Supplemental information: The patient is gradually reducing oxygen intake and maintaining 96% saturation. She uses BiPAP and is currently on 2 L/min oxygen, considering reduction to 1.5 L/min. Current Outpatient Medications on File Prior to Visit Medication Sig Dispense Refill Linzess 290 mcg capsule Take 1 Capsule (290 mcg) by mouth daily before breakfast. For chronic constipation 90 Capsule 3 losartan (COZAAR) 50 mg tablet Take 1 Tablet by mouth daily. bumetanide (BUMEX) 1 mg tablet Take 1 Tablet (1 mg) by mouth 2 times daily. HOLD furosemide and HCTZ 60 Tablet 0 nitroglycerin (NITROSTAT) 0.4 mg Tablet, Sublingual Place 1 Tablet (0.4 mg) under tongue every 5 minutes as needed for Chest Pain. 25 Tablet 3 rOPINIRole (REQUIP) 1 mg tablet TAKE 1 & 1/2 TO 2 TABLETS BY MOUTH 1 TO 2 HOURS BEFORE BEDTIME.60 Tablet 5 mometasone (NASONEX) 50 mcg/actuation [place], Non-Aerosol Administer 2 Sprays in each nostril daily.17 Gram 1 CALCIUM CARBONATE ORAL Take by mouth. tirzepatide (Mounjaro) 15 mg/0.5 mL Pen Injector Inject 0.5 mL (15 mg) by subcutaneous injection every 7 days. 2 mL 5 diclofenac sodium (VOLTAREN) 50 mg Tablet, Delayed Release (E.C.) Take 1 Tablet (50 mg) by mouth 2 times daily. 60 Tablet 2 famotidine (PEPCID) 40 mg tablet TAKE 1 TABLET BY MOUTH AT BEDTIME 30 Tablet 11 ferrous sulfate (FeroSuL) 325 mg (65 mg iron) tablet Take 1 Tablet (325 mg) by mouth every other day. With vitamin C 90 Tablet 3 venlafaxine (EFFEXOR XR) 75 mg Extended Release 24 hour capsule TAKE 1 CAPSULE BY MOUTH DAILY FOR 30 DAYS. TAKE WITH 150MG FOR A DAILY TOTAL OF 225MG. 100 Capsule 0 omeprazole (PriLOSEC) 40 mg Capsule, Delayed Release(E.C.) TAKE 1 CAPSULE BY MOUTH TWICE A DAY 60 Capsule 3 baclofen (LIORESAL) 5 mg tablet Take 1 Tablet (5 mg) by mouth 3 times daily as needed for Pain. 270Tablet 1 metFORMIN (GLUCOPHAGE) 1,000 mg tablet TAKE 1 TABLET (1 000 MG) BY MOUTH 2 TIMES DAILY WITH MEALS. 180 Tablet 1 empagliflozin (Jardiance) 25 mg tablet Take 1 Tablet (25 mg) by mouth daily in the morning. 90 Tablet 1 glimepiride (AMARYL) 4 mg tablet Take 1 Tablet (4 mg) by mouth 2 times daily. 180 Tablet 1 HumaLOG KwikPen Insulin 100 unit/mL pen syringe Sliding Scale Instructions: Less than 100 = half dose; 100 - 140 = base dose for the food you eat -20 units small meals, - 24 units medium meals, - 28 units large meals; 141 - 180 = add 3 units; 181 - 220 = add 6 units; 221 - 260 = add 9 unit; 261 - 300 = add 12 units; 301 - 340 = add 15 units; Greater than 340 = add 18 units. Max daily dose 150 units. 45 mL 3 insulin glargine (Lantus Solostar U-100 Insulin) 100 unit/mL pen syringe Inject 85 Units by subcutaneous injection daily. (Patient taking differently: Inject 45 Units by subcutaneous injection 2 times daily.) 75 mL 3 diclofenac sodium (VOLTAREN) 1 % gel Apply 2 Grams to affected area 4 times daily. 300 Gram 1 bi-level machine Bi-level (E0470) at 14/10 cm/H2O with heated humidifier (E0562), MASK OF CHOICE, headgear(A7035), cushions (A7031) 1/1 month, (A7032) (A7033) 2 pair/1 month. Heated tubing A4604 1/3mo,water chamber A7046 1/6mo,filter disp A7038 2/mo,Reusable filter A7039 1/6mo, Chin strap A7036 a/6mo ENRIQUETA 99mo DX: VIVIAN (G47.33) 1 Each PRN gabapentin (NEURONTIN) 400 mg capsule Take 2 Capsules (800 mg) by mouth 3 times daily. 540 Capsule 3 Motegrity 2 mg Tablet TAKE 1 TABLET(2 MG) BY MOUTH DAILY 90 Tablet 3 estradioL (ESTRACE) 0.01% (0.1 mg/g) vaginal cream Insert 1 Gram vaginally see administration instructions. 42.5 Gram 11 methenamine hippurate (HIPREX) 1 gram Tablet Take 1 Tablet (1,000 mg) by mouth 2 times daily. 60 Tablet 11 fesoterodine SR 24 hour (TOVIAZ) 4 mg tablet Take 1 Tablet (4 mg) by mouth daily. 30 Tablet 11 galcanezumab-gnlm (Emgality Pen) 120 mg/mL Pen Injector Inject 1 mL by subcutaneous injection every30 days. 1 mL 11 EPINEPHrine (EPIPEN) 0.3 mg/0.3 mL Auto-Injector Inject 0.3 mL (0.3 mg) by intramuscular injection 1 time daily as needed for Anaphylaxis. 2 Each 2 montelukast (SINGULAIR) 10 mg tablet Take 1 Tablet (10 mg) by mouth daily at bedtime. 100 Tablet 2 atorvastatin (LIPITOR) 40 mg tablet Take 1 Tablet (40 mg) by mouth daily at bedtime. 100 Tablet 3 docusate sodium (COLACE) 100 mg capsule 2 CAPSULES BY MOUTH TWICE A DAY NEEDED FOR CONSTIPATION 120 Capsule PRN polyethylene glycol 3350 (ClearLax) 17 gram/dose Powder Take 1 Scoop (17 Grams) by mouth 2 times daily. 510 Gram 2 benztropine (COGENTIN) 1 mg tablet Take 1 mg by mouth 2 times daily. venlafaxine (EFFEXOR XR) 150 mg Extended Release 24 hour capsule Take 1 Capsule (150 mg) by mouth daily. Take with 75 mg capsule 90 Capsule 3 nortriptyline (PAMELOR) 25 mg capsule TAKE 3 CAPSULES BY MOUTH AT BEDTIME ARIPiprazole (ABILIFY) 20 mg tablet Take 20 mg by mouth daily. azelastine (ASTELIN) 137 mcg/actuation nasal spray Administer 2 Sprays in each nostril 2 times daily. Angle bottle tip straight back and slightly outward, away from septum. 30 mL 6 ondansetron (ZOFRAN ODT) 8 mg Tablet, Rapid Dissolve Dissolve 1 tablet on top of tongue then swallow with saliva every 8 hours as needed for nausea or vomiting 30 Tablet 0 cholecalciferol 1,250 mcg (50,000 unit) Capsule Take 1 Capsule (50,000 Units) by mouth every 7 days. 12 Capsule 0 acetaminophen (TYLENOL) 500 mg tablet Take 500 mg by mouth every 6 hours as needed. magnesium oxide 250 mg magnesium Tablet Take 250 mg by mouth. albuterol sulfate HFA 90 mcg/actuation aerosol inhaler Take 2 Puffs by inhalation every 4 hours as needed for Shortness of Breath or Wheezing (cough). 8.5 Gram 1 inhalational spacing device (Microchamber) Spacer For use with albuterol inhaler. 1 Each 0 Insulin [place], Disposable, (TechLITE Pen Needle) 32 gauge x 1/4 Needle Use to inject insulin 5x daily. 500 Each 3 lancets (OneTouch Delica Plus Lancet) 33 gauge Use to check BG 3x daily in case of cgm failure. 100Each 3 fluconazole (DIFLUCAN) 150 mg tablet Take 1 Tablet (150 mg) by mouth daily. Repeat in 72 hours if symptoms have not resolved or improved. 2 Tablet 1 amLODIPine (NORVASC) 10 mg tablet Take 1 Tablet (10 mg) by mouth daily. (Patient not taking: Reported on 11/05/2024) 100 Tablet 3 cetirizine (ZyrTEC) 10 mg tablet Take 1 Tablet (10 mg) by mouth daily. 90 Tablet 3 [DISCONTINUED] linaCLOtide (Linzess) 290 mcg capsule Take 1 Capsule (290 mcg) by mouth daily beforebreakfast. For chronic constipation 90 Capsule 3 Blood-Glucose Sensor (Dexcom G7 Sensor) Device Replace every 10 days. 9 Each 3 nystatin (NYSTOP) 100,000 unit/gram powder Apply to affected area 2 times daily. 60 Gram 5 mupirocin (BACTROBAN) 2 % Ointment Apply to affected area daily. (Patient not taking: Reported on 11/05/2024) 15 Gram 0 Blood-Glucose Meter,Continuous (Dexcom G7 Jacker Feeder) Use to check BG. 1 Each 0 OneTouch Ultra Test Strip USE TO CHECK BLOOD SUGARS TWICE A DAY E11.9 100 Strip 3 Blood-Glucose Meter Kit Use to check sugars BID. e11.9 1 Each 0 No current facility-administered medications on file prior to visit. PAST MEDICAL/SURGICAL HISTORY: Past Medical History: Diagnosis Date Anxiety Arthritis Bladder incontinence Chest pain Chest pain all the times comes and goes Chronic ethmoidal sinusitis 11/25/2014 Chronic frontal sinusitis 11/25/2014 Chronic maxillary sinusitis 11/25/2014 Chronic sphenoidal sinusitis 11/25/2014 Clostridium difficile infection 12/15/2015 Clostridium difficile infection 12/15/2015 Constipation CRI (chronic renal insufficiency) pt states she has struggled with kidney function Depression Diabetes mellitus (CMS/[facility]) 01/05/2014 Dyspnea on exertion GERD (gastroesophageal reflux disease) Headache(784.0) migraines History of complications due to general anesthesia Nausea--severe Hx of abnormal cervical Pap smear Hyperlipidemia Hypertension 01/05/2014 IBS (irritable bowel syndrome) Injury of back with back surgery, Joint pain MRSA (methicillin resistant Staphylococcus aureus) 2016 nares Obstructive sleep apnea wears bipap Obstructive sleep apnea (adult) (pediatric) C-pap Patient denies relevant medical history Post-operative nausea and vomiting Simple chronic bronchitis (CMS/HCC) 01/02/2018 Unspecified deficiency anemia Past Surgical History: Procedure Laterality Date DILATION AND CURETTAGE 1994 miscarriage HX BLOOD TRANSFUSION 1996 HX CHOLECYSTECTOMY 14 years ago HX COLONOSCOPY N/A 06/16/2024 COLONOSCOPY performed by Aayush Jc MD at [facility] HX ESOPHAGOGASTRODUODENOSCOPY N/A 05/10/2021 ESOPHAGOGASTRODUODENOSCOPY performed by Aayush Jc MD at [facility] END[facility]COPY HX HEART CATHETERIZATION HX HYSTERECTOMY 05/2015 complete HX LUMBAR DISKECTOMY Right 01/03/2016 LUMBAR LAMINECTOMY DISCECTOMY ENDOSCOPIC performed by Thiago Teran MD at [facility] MAIN OR HX SINUS SURGERY Bilateral 10/11/2014 ETHMOIDECTOMY performed by Jimmy Madera MD at [facility] OR HX SURGICAL OTHER Bilateral 10/11/2014 ETHMOIDECTOMY ENDOSCOPIC performed by Jimmy Madera MD at [facility] OR HX SURGICAL OTHER N/A 01/03/2016 FLUOROSCOPY performed by Thiago Teran MD at [facility] OR SD COLONOSCOPY FLX DX W/COLLJ SPEC WHEN PFRMD N/A 12/08/2014 COLONOSCOPY performed by Nehemiah Rodríguez MD at [facility] ENDOSCOPY SD COLONOSCOPY FLX DX W/COLLJ SPEC WHEN PFRMD N/A 11/21/2018 COLONOSCOPY performed by Nehemiah Rodríguez MD at [facility] ENDOSCOPY SD CYSTOURETHROSCOPY N/A 06/15/2015 CYSTOSCOPY RIGID performed by Melissa Anand MD at [facility] OR SD DIAGNOSTIC ARTHROSCOPY SHOULDER +- SYNOVIAL BX Left 07/31/2018 SHOULDER ARTHROSCOPY performed by Andrae Mo MD at [facility] OR SD ESOPHAGEAL MOTILITY STUDY W/INTERP&RPT N/A 05/10/2021 ESOPHAGEAL MOTILITY MANOMETRY STUDY performed by Aayush Jc MD at [facility] ENDOSCOPY JAIM[place] SD ESOPHAGOGASTRODUODENOSCOPY TRANSORAL DIAGNOSTIC 08/12/2013 ESOPHAGOGASTRODUODENOSCOPY performed by Nehemiah Rodríguez MD at [facility] ENDOSCOPY SD ESOPHAGOGASTRODUODENOSCOPY TRANSORAL DIAGNOSTIC N/A 11/21/2018 ESOPHAGOGASTRODUODENOSCOPY performed by Nehemiah Rodríguez MD at [facility] ENDOSCOPY SD ESOPHAGOGASTRODUODENOSCOPY TRANSORAL DIAGNOSTIC N/A 04/19/2017 ESOPHAGOGASTRODUODENOSCOPY performed by Nehemiah Rodríguez MD at [facility] ENDOSCOPY SD ESOPHAGOGASTRODUODENOSCOPY TRANSORAL DIAGNOSTIC N/A 06/16/2024 ESOPHAGOGASTRODUODENOSCOPY performed by Aayush Jc MD at [facility] ENDOSCOPY SD GASTROESOPHAG REFLX TEST W/TELEMTRY PH ELTRD N/A 05/10/2021 PH STUDY 48 HOUR performed by Aayush Jc MD at [facility] ENDOSCOPY SD LAMNOTMY INCL W/DCMPRSN NRV ROOT 1 INTRSPC LUMBR Right 01/03/2016 LUMBAR SPINE DECOMPRESSION performed by Thiago Teran MD at [facility] MAIN OR SD LAPAROSCOPY W TOTAL HYSTERECTOMY UTERUS 250 GM/< Bilateral 06/15/2015 HYSTERECTOMY TOTAL DAVINCI SI LAPAROSCOPIC performed by Melissa Anand MD at [facility] MAIN OR SD LAPAROSCOPY W/RMVL ADNEXAL STRUCTURES Bilateral 06/15/2015 SALPINGO-OOPHORECTOMY DAVINCI SI LAPAROSCOPIC performed by Melissa Anand MD at [facility] OR SD NASAL ENDOSCOPY DIAGNOSTIC UNI/BI SPX Bilateral 10/11/2014 SINUS SURGERY FUNCTIONAL ENDOSCOPIC performed by Jimmy Madera MD at [facility] OR SD NASAL/SINUS ENDOSCOPY W/SPHENOIDOTOMY Bilateral 10/11/2014 SPHENOID ENDOSCOPY performed by Jimmy Madera MD at [facility] OR SD SEPTOPLASTY/SUBMUCOUS RESECJ W/WO CARTILAGE GRF N/A 10/11/2014 NASAL SEPTOPLASTY performed by Jimmy Madera MD at [facility] OR SD SINUSOTOMY MAXILLARY ANTROTOMY INTRANASAL Bilateral 10/11/2014 ANTROSTOMY MAXILLARY ENDOSCOPIC performed by Jimmy Madera MD at [facility] OR SD SUBMUCOUS RESCJ INFERIOR TURBINATE PRTL/COMPL Bilateral 10/11/2014 NASAL TURBINATE REDUCTION performed by Jimmy Madera MD at [facility] OR SD SURGICAL ARTHROSCOPY SHOULDER LMTD DBRDMT 1/ Left 07/31/2018 SHOULDER DEBRIDEMENT ARTHROSCOPY performed by Andrae Mo MD at [facility] OR SD UNLISTED PROCEDURE ACCESSORY SINUSES Bilateral 10/11/2014 SINUPLASTY BALLOON performed by Jimmy Madera MD at [facility] OR SD UNLISTED PROCEDURE MUSCSKELETAL SYSTEM GENERAL Left 07/31/2018 EXTREMITY MANIPULATION performed by Andrae Mo MD at [facility] OR SD UNLISTED PROCEDURE NERVOUS SYSTEM Right 01/03/2016 LAMINOTOMY performed by Thiago Teran MD at [facility] OR Social History Socioeconomic History Marital status: Number of children: 3 Years of education: 16 Tobacco Use Smoking status: Former Current packs/day: 0.00 Types: Cigarettes Quit date: 09/08/1988 Years since quittin.2 Passive exposure: Past Smokeless tobacco: Never Vaping Use Vaping status: Never Used Substance and Sexual Activity Alcohol use: No Alcohol/week: 0.0 standard drinks of alcohol Drug use: Not Currently Sexual activity: Not Currently control/protection: Surgical Comment: ml Social Drivers of Health Food Insecurity: Not on File (03/12/2024) Received from [facility] Food Insecurity Food: 0 Transportation Needs: No Transportation Needs (11/01/2023) Transportation Needs Lack of Transportation (Medical): No Lack of Transportation (Non-Medical): No Feeling Safe: Not At Risk (10/27/2024) Feeling Safe Patient has indicated abuse: : No Housing Stability: High Risk (11/01/2023) Housing Stability Unable to Pay for Housing in the Last Year: Yes OBJECTIVE: PHYSICAL EXAM: BP 112/62 (BP Location: Right arm, Patient Position (BP): Sitting, BP Cuff Size: Large Adult) Pulse 98 Temp 96.9 ??F (36.1 ??C) (Tympanic) Resp 20 Ht 5' 6 (1.676 m) Wt 123.5 kg (272 lb 3.2oz) LMP (LMP Unknown) SpO2 97% Comment: 2 Liters O2 BMI 43.93 kg/m?? Physical Exam Vitals and nursing note reviewed. Constitutional: General: She is not in acute distress. Appearance: Normal appearance. She is obese. She is not ill-appearing, toxic- appearing or diaphoretic. HENT: Head: Normocephalic and atraumatic. Right Ear: External ear normal. Left Ear: External ear normal. Nose: Nose normal. Mouth/Throat: Mouth: Mucous membranes are moist. Eyes: General: No scleral icterus. Extraocular Movements: Extraocular movements intact. Conjunctiva/sclera: Conjunctivae normal. Cardiovascular: Rate and Rhythm: Normal rate and regular rhythm. Pulses: Normal pulses. Pulmonary: Effort: Pulmonary effort is normal. Breath sounds: Normal breath sounds. No stridor. No wheezing. Musculoskeletal: General: No deformity. Normal range of motion. Cervical back: Normal range of motion. Right lower le+ Pitting Edema present. Left lower le+ Pitting Edema present. Skin: General: Skin is warm and dry. Capillary Refill: Capillary refill takes less than 2 seconds. Findings: No bruising or erythema. Neurological: General: No focal deficit present. Mental Status: She is alert and oriented to person, place, and time. Psychiatric: Mood and Affect: Mood normal. Behavior: Behavior normal. Procedures RESULTS: Results - Laboratory Studies: - Sodium levels: Slightly low ASSESSMENT/PLAN: ICD-10-CM ICD-9-CM 1. Peripheral edema R60.0 782.3 2. Stage 3a chronic kidney disease (CMS/HCC) N18.31 585.3 BASIC METABOLIC PANEL CBC WITH DIFFERENTIAL 3. Hemorrhoids, unspecified hemorrhoid type K64.9 455.6 hydrocortisone acetate (Anucort-HC) 25 mg Suppository 4. Diabetic polyneuropathy associated with type 2 diabetes mellitus E11.42 250.60 OXcarbazepine (TRILEPTAL) 150 mg tablet 357.2 5. Migraine without aura and without status migrainosus, not intractable G43.009 346.10 OXcarbazepine (TRILEPTAL) 150 mg tablet 6. Chronic right-sided low back pain with right-sided sciatica M54.41 724.2 OXcarbazepine (TRILEPTAL) 150 mg tablet G89.29 724.3 338.29 7. Hypoxemia R09.02 799.02 PULMONARY FUNCTION TEST 8. Arthritis of both hands M19.041 716.94 diclofenac sodium (VOLTAREN) 75 mg Tablet, Delayed Release (E.C.) M19.042 Assessment & Plan 1. Leg pain: Chronic. - Sodium levels marginally low last week, re-evaluation needed. - Discuss potential gabapentin-induced leg swelling. - Implement cross-tapering: reduce gabapentin while increasing oxcarbazepine. Gabapentin: reduce toone tablet three times daily for a week, then twice daily for a week, then once in the evening for a week before discontinuation. Oxcarbazepine: initiate at one tablet daily for a week, then increaseto twice daily for a week, with further adjustments as needed. - Increase diclofenac from 50 mg to 75 mg. 2. Hemorrhoids: Acute. - Prescribe steroid suppository twice daily for up to 10 days. Alternatively, use Preparation H if suppository is not covered or too expensive. 3. Back pain. - Advise gentle stretching exercises at home, including seated and overhead stretches, twice daily. 4. Diastolic heart failure: Chronic. - Heart squeezing well but not relaxing effectively. - Mild pulmonary hypertension. - Conduct pulmonary function test. 5. Yeast infection: Acute. - Likely due to recent antibiotic use. 6. Memory loss. - Continues Abilify and nortriptyline at bedtime. 7. Constipation. - Associated with hemorrhoids. 8. Diabetes mellitus. - Taking tirzepatide, metformin, Jardiance, glimepiride, and insulin. - Quit Mountain Dew, now drinking Sprite and water. - Needs advice on increasing water intake. 9. Oxygen management. - Gradually reducing oxygen intake, maintaining 96% saturation. - Uses BiPAP, currently on 2 L/min oxygen, considering reduction to 1.5 L/min. - Continue reducing oxygen intake as long as saturation remains above 90%. Taper usage gradually ifcomfortable. Follow-up - Follow up in 4 weeks. TOBACCO/NICOTINE COUNSELING She is not a tobacco/nicotine user. Depression Screen Positive: PHQ-2 score >= 3 or PHQ-9 score >= 9 PHQ-2 Total: 6 (11/12/2024 3:00 PM) PHQ-9 Total: 15 (11/12/2024 3:00 PM) DEPRESSION PLAN OF CARE Her depression screen was positive. Her antidepressant medication was reviewed The author of this note, patient (or authorized industrial sales representative), and all other persons present consent to the audio recording of this visit for charting documentation purposes. This note was automatically generated by a [employer] M[employer] technology ([employer]), reviewed, edited, and finalized by Andrea Ren DO. Andrea Ren DO Portions of this note were created using Navera Dictation software. Attempts were made to correct any mistakes prior to signing this note. There is always a possibility that words were not transcribed correctly. This note is made as a medical record and medical terms have been used where appropriate. If you do not recognize a term or feel it is inaccurate please call the office to discuss or schedule a follow-up appointment. documented in this encounter Miscellaneous Notes * Patient Instructions - Andrea Ren DO - 11/12/2024 4:13 PM CDT Taper down on gabapentin and start the oxcarbazepine. - Take gabapentin three times a day for one week, then twice a day for the next week, and once in the evening for the final week before stopping. - Start oxcarbazepine with one tablet a day for a week, then increase to two tablets a day the following week. - The doctor may adjust this plan if necessary. documented in this encounter Plan of Treatment Upcoming Encounters Date Type Department Care Team (Late st Contact Info) Description 11/25/2024 11:40 AM CDT Office Visit [address] [address] Andrea Ren DO [address] [place] [phone] 12/02/2024 3:00 PM CDT Office Visit [facility] [place] [address] [place] [address] Nataliia Gallegos FNP [address] [address] 12/17/2024 11:00 AM CDT Appointment [facility] Pulmonary Function [facility] [address] [place] [address] [place] [address] Andrea Ren DO [address] [place] [phone] 12/17/2024 1:10 PM CDT Office Visit [address] [address] Danita Smith FNP [address] [place] [phone] 02/03/2025 10:00 AM CDT Office Visit [facility] Urology- [place] [address] Entrance B, 3rd [place] [address] Kylie Villafuerte NP [address] [place] [phone] 03/26/2025 11:10 AM CDT Appointment [facility] [address] [place] [address] Melissa Anand MD [address] [place] [address] 03/30/2025 11:00 AM CDT Office Visit [facility] Gastroenterology- [place] [address] [place] [address] Corin De Leon NP [address] [place] [address] 05/14/2025 11:20 AM PAYROLL BENEFITS ADMINISTRATOR Office Visit [facility] Endocrinology [facility] [address] [place] [address] Ora De Anda PA [address] [place] [address] 07/12/2025 10:45 AM PAYROLL BENEFITS ADMINISTRATOR Office Visit [facility] [address] [facility] [address] [place] [address] Dorys Cano, LILLIE [address] [facility] [address] [place] [address] 08/25/2025 8:00 AM CDT Hospital Encounter [facility] Endoscopy [address] [place] [phone] Aayush Sofia MD [address] [facility] [address] [place] [address] 08/25/2025 8:00 AM CDT - 08/25/2025 8:20 AM CDT Surgery [facility] Endoscopy [address] [place] [phone] BismarkAayush MD [address] [facility] [address] [place] [address] COLONOSCOPY 11/11/2025 10:50 AM CDT Office Visit [facility] Gopal [facility] [place] [address] [place] [address] Melissa Anand MD [address] [place] [address] Scheduled Orders Name Type Priority Associated Diagnoses Orde r Schedule PULMONARY FUNCTION TEST PFT Routine Hypoxemia Expected: 11/12/2024 (Approximate), Expires: 01/11/2025 Scheduled Procedures Name Priority Associated Diagnoses Date/Ti me COLONOSCOPY Iron deficiency anemia, unspecified iron deficiency anemia type Chronic idiopathic constipation Colon cancer screening 08/25/2025 8:00 AM CDT documented as of this encounter Procedures Procedure Name Priority Date/Time Associated Diagnosis Comments CBC WITH DIFFERENTIAL Routine 11/12/2024 4:28 PM CDT Stage 3a chronic kidney disease (CMS/HCC) BASIC METABOLIC PANEL Routine 11/12/2024 4:28 PM CDT Stage 3a chronic kidney disease (CMS/HCC) documented in this encounter Results * (ABNORMAL) CBC WITH DIFFERENTIAL (11/12/2024 4:28 PM CDT) WBC 10.9(H) 3.8 - 10.8 Thousand/u L [facility] RBC 5.38(H) 3.80 - 5.10 Million/uL [facility] HEMOGLOBIN 13.0 11.7 - 15.5 g/dL [facility] HEMATOCRIT 43.2 35.0 - 45.0 % [facility] MCV 80.3 80.0 - 100.0 fL [facility] MCH 24.2(L) 27.0 - 33.0 pg [facility] MCHC 30.1(L) 32.0 - 36.0 g/dL [facility] Comment: For adults, a slight decrease in the calculated MCHC value (in the range of 30 to 32 g/dL) is most likely not clinically significant; however, it should be interpreted with caution in correlation with other red cell parameters and the patient's clinical condition. RDW 17.1(H) 11.0 - 15.0 % [facility] PLATELETS 288 140 - 400 Thousand/u L [facility] MPV 11.5 7.5 - 12.5 fL [facility] NEUTROPHIL ABSOLUTE 8,001(H) 1,500 - 7,800 cells/uL [facility] LYMPHOCYTE ABSOLUTE 1,820 850 - 3,900 cells/uL [facility] MONOCYTE ABSOLUTE 676 200 - 950 cells/uL [facility] EOSINOPHIL ABSOLUTE 338 15 - 500 cells/uL [facility] BASOPHILS ABSOLUTE 65 0 - 200 cells/uL [facility] NEUTROPHIL 73.4 % [facility] LYMPHOCYTES 16.7 % [facility] MONOCYTE 6.2 % [facility] EOSINOPHILS 3.1 % [facility] BASOPHILS 0.6 % [facility] Comment: Test Performed at: [facility] [address] [address] Harlan Guidry MD Blood 11/12/2024 4:28 PM CDT 11/13/2024 4:50 AM CDT Andrea Ren DO HEMATOLOGY ORDERABLES Final R esult [facility] [phone] [facility] [address] [place] [address] * (ABNORMAL) BASIC METABOLIC PANEL (11/12/2024 4:28 PM CDT) GLUCOSE 140(H) 65 - 99 mg/dL [facility] Comment: Fasting reference interval For someone without known diabetes, a glucose value >125 mg/dL indicates that they may have diabetes and this should be confirmed with a follow-up test. BUN 15 7 - 25 mg/dL [facility] CREATININE 0.96 0.50 - 1.03 mg/dL [facility] GFR 71 > OR = 60 mL/min/1.7 3m2 [facility] BUN/CREAT RATIO SEE NOTE: 6 - 22 (calc) [facility] Comment: Not Reported: BUN and Creatinine are within reference range. SODIUM 139 135 - 146 mmol/L [facility] POTASSIUM 4.1 3.5 - 5.3 mmol/L [facility] CHLORIDE 100 98 - 110 mmol/L [facility] CO2 26 20 - 32 mmol/L [facility] CALCIUM 9.5 8.6 - 10.4 mg/dL [facility] Comment: Test Performed at: [facility] [address] [facility] [place] [address] Harlan Guidry MD Blood 11/12/2024 4:28 PM CDT 11/13/2024 4:50 AM CDT us Andrea Ren DO CHEMISTRY ORDERABLES Final Re sult [facility] [phone] [facility] [address] [place] [address] documented in this encounter Visit Diagnoses Diagnosis Peripheral edema- Primary Edema Stage 3a chronic kidney disease (CMS/HCC) Hemorrhoids, unspecified hemorrhoid type Diabetic polyneuropathy associated with type 2 diabetes mellitus Migraine without aura and without status migrainosus, not intractable Migraine without aura, without mention of intractable migraine without mention of status migrainosus Chronic right-sided low back pain with right-sided sciatica Hypoxemia Arthritis of both hands documented in this encounter Additional Health Concerns Assessment Noted Time PHQ-9 Depression Total Score: 6 11/13/19 25 3:00 PM CDT documented as of this encounter Care Teams Inspector Shells Relationship Specialty Start Date End Date Andrea Ren DO [address] [place] [phone] PCP - General Family Practice 08/03/21 documented as of this encounter
[2024-11-14] VITALS (21 sets, daily range): BP systolic 92–132; BP diastolic 51–96; PULSE 93–135; RESP 8–20; TEMP 37.1–37.8; O2SAT 91–100
--- NOTE | 2024-11-14 13:16 | ECG_ITS ---
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 Measurements Intervals [employer] Rate: 132 P: 46 SD: 148 QRS: -17 QRSD: 86 T: 96 QT: 271 QTc: 402 Interpretive Statements SINUS TACHYCARDIA LEFT VENTRICULAR HYPERTROPHY AND ST-T CHANGE [VOLTAGE CRITERIA PLUS ST/T ABNORMALITY] Compared to ECG 10/30/2024 04:33:51 Left ventricular hypertrophy now present ST (T wave) deviation now present Electronically Signed On 11-17-2024 11:42:26 CDT by John Barnett M.D. [email or web address] [id number]
--- NOTE | 2024-11-14 13:20 | XRR_ITS ---
PROCEDURE INFORMATION: Exam: XR Chest Exam date and time: 11/14/2024 1:46 PM Age: 53 years old Clinical indication: Shortness of breath; Additional info: SOB TECHNIQUE: Imaging protocol: Radiologic exam of the chest. Views: 1 view. COMPARISON: CT chest con [id number] 10/29/2024 10:24 PM FINDINGS: Lungs: Unremarkable. No consolidation. Pleural spaces: Unremarkable. No pleural effusion. No pneumothorax. Heart/Mediastinum: Unremarkable. No cardiomegaly. Bones/joints: Unremarkable. XR/XR chest 1V portable [id number] IMPRESSION: No acute findings.
--- NOTE | 2024-11-14 13:20 | W.ED.NAVMDI ---
HPI - Nausea/Vomiting/Diarrhea General: Chief complaint: Nausea/Vomiting/Diarrhea Stated complaint: diarrhea, n/v Time Seen by Provider: 11/14/24 13:07 History of Present Illness: 53 yo female patient presents to ER with n/d and abd pain x 3 days with fever. Pt states she also has chest pain and SOB. Pt states she was discharged from the hospital 2 weeks ago with pneumonia and found out she has COPD and CHF. Related Data Home Medications ?Medication ?Instructions ?Recorded ?Confirmed acetaminophen 500 mg tablet 500 mg PO QID PRN Pain 12/12/19 10/30/24 atorvastatin 40 mg PO BEDTIME 12/12/19 10/30/24 baclofen 5 mg PO BID 12/12/19 10/30/24 cetirizine 10 mg tablet 10 mg PO DAILY 12/12/19 10/30/24 docusate sodium 100 mg PO BID 12/12/19 10/30/24 epinephrine 0.3 mg IM PRN PRN anaphylaxis 12/12/19 10/30/24 gabapentin 600 mg tablet 800 mg PO TID 12/12/19 10/31/24 glimepiride 4 mg PO BID 12/12/19 10/30/24 hydrochlorothiazide 25 mg PO QAM 12/12/19 10/30/24 metformin 1,000 mg PO BID 12/12/19 10/30/24 empagliflozin 25 mg tablet 25 mg PO QAM 09/18/21 10/30/24 (Jardiance) linaclotide 290 mcg capsule 290 mcg PO QAM 09/18/21 10/30/24 (Linzess) montelukast 10 mg tablet 10 mg PO DAILY 09/18/21 10/30/24 (Singulair) pantoprazole 40 mg tablet,delayed 40 mg PO BID 09/18/21 10/30/24 release (Protonix) ropinirole 1 mg tablet 2 mg PO BEDTIME 09/18/21 10/30/24 aripiprazole 20 mg tablet 20 mg PO DAILY 10/30/24 10/30/24 benztropine 1 mg tablet 1 mg PO BID 10/30/24 10/30/24 cholecalciferol (vitamin D3) 10 See Rx Instructions .Route .COMPLEX 10/30/24 10/30/24 mcg (400 unit) tablet hydroxyzine pamoate 50 mg capsule 50 mg PO BEDTIME 10/30/24 10/30/24 insulin lispro 100 unit/mL See Rx Instructions .Route .COMPLEX 10/30/24 10/30/24 subcutaneous pen (Humalog KwikPen (U-100) Insulin) nortriptyline 25 mg capsule 75 mg PO BEDTIME 10/30/24 10/30/24 tirzepatide 15 mg/0.5 mL 15 mg SUBCUT Q7D 10/30/24 10/30/24 subcutaneous pen injector (Mounjaro) venlafaxine 75 mg capsule,extended 75 mg PO DAILY 10/30/24 10/30/24 release 24 hr albuterol sulfate 90 mcg/actuation 90 mcg inhalation Q4H PRN 10/31/24 10/31/24 aerosol inhaler Shortness Of Breath Or Wheezing azelastine 137 mcg (0.1 %) nasal 2 spray intranasal BID 10/31/24 10/31/24 spray bumetanide 1 mg tablet 1 mg PO BID 10/31/24 10/31/24 diclofenac sodium 1 % topical gel 2 g topical QID 10/31/24 10/31/24 estradiol 0.01% (0.1 mg/gram) 1 g vaginal PRN 10/31/24 10/31/24 vaginal cream famotidine 40 mg tablet 40 mg PO BEDTIME 10/31/24 10/31/24 ferrous sulfate 325 mg (65 mg 325 mg PO EVERY OTHER DAY 10/31/24 10/31/24 iron) tablet (FeroSul) fesoterodine 4 mg tablet,extended 4 mg PO DAILY 10/31/24 10/31/24 release 24 hr galcanezumab-gnlm 120 mg/mL 120 mg SUBCUT Q30D 10/31/24 10/31/24 subcutaneous pen injector (Emgality Pen) methenamine hippurate 1 gram tablet 1 g PO BID 10/31/24 10/31/24 mometasone 50 mcg/actuation nasal 50 mcg intranasal DAILY 10/31/24 10/31/24 spray prucalopride 2 mg tablet 2 mg PO DAILY 10/31/24 10/31/24 (Motegrity) Previous Rx's ?Medication ?Instructions ?Recorded meclizine 25 mg tablet (Dramamine 25 mg PO TID PRN motion sickness 10/13/23 (meclizine)) #20 tabs ondansetron 4 mg disintegrating 4 mg PO Q6H PRN nausea and 04/12/24 tablet vomiting #12 tabs insulin glargine 100 unit/mL (3 45 unit (0.45 mL) SUBCUT BID #3 mL 11/02/24 mL) subcutaneous pen (Lantus Solostar U-100 Insulin) losartan 50 mg tablet 50 mg PO DAILY #30 tabs 11/02/24 venlafaxine 150 mg 150 mg PO QAM 30 days #30 caps 11/11/24 capsule,extended release 24 hr (Effexor XR) Allergies Allergy/AdvReac Type Severity Reaction Status Date / Time methocarbamol Allergy Intermediate itching Verified 04/12/24 13:37 Sulfa (Sulfonamide Allergy Unknown Unknown Verified 04/12/24 13:37 Antibiotics) tramadol Allergy ADR-Headach Verified 10/30/24 05:37 e Review of Systems General: Reports: 10 or more systems reviewed and unremarkable except in HPI and below PFSH ED PFSH: Medical History Uncontrolled type 2 diabetes mellitus Diastolic heart failure Pulmonary hypertension COPD (chronic obstructive pulmonary disease) Diabetes Psychiatric care Medication management Sleep apnea treated with nocturnal BiPAP Hypersomnia Major depressive disorder, recurrent, severe with psychotic symptoms Chronic post-traumatic stress disorder Generalized anxiety disorder Surgical History History of back surgery due to a herniated disk. Hx laparoscopic cholecystectomy History of hysterectomy with bilateral oophorectomy due to menorrhagia H/O shoulder surgery due to Frozen shoulder Family History Father Lung cancer Sister Multiple myeloma Mother Heart disease Social History Smoking and tobacco/nicotine status: former use of tobacco/nicotine Quit status (tobacco/nicotine): has quit using Former quit date comment: She smoked 1/2 PPD for about 6 months Alcohol intake: never Substance/Drug Use: never Current gender identity: Female Female Reproductive History: Spontaneous abortions: No Physical Exam Const: COMMON NORMALS: no acute distress, patient oriented x3, healthy appearing and well nourished GENERAL APPEARANCE: cooperative ORIENTATION/CONSCIOUSNESS: Yes awake HENMT: COMMON NORMALS: normocephalic, atraumatic, hearing grossly normal bilaterally, external ears normal, EAC's normal, TM's normal bilaterally, Normal external nose present, Normal nasal mucous membranes and turbinates present and moist oral mucous membranes HEAD & SCALP: normal to inspection, normocephalic and atraumatic FACE & SINUS: normal facial exam, sinuses nontender and face symmetric NOSE: Normal external nose present, Normal nares present, Normal nasal mucous membranes and turbinates present, No nasal discharge present and Abnormal external nose present EXTERNAL EAR: Yes external ears normal and Yes mastoids normal EXTERNAL AUDITORY CANAL: EAC's normal TYMPANIC MEMBRANE: TM's normal bilaterally MOUTH: Normal oral and palatal mucosa present, lip normal, tongue normal and Normal salivary glands and ducts present THROAT: posterior oropharynx normal, tonsils normal and uvula midline Eye: COMMON NORMALS: Equal, round and reactive pupils present, EOMs intact bilaterally, conjunctivae normal, no scleral icterus and no papilledema GENERAL EYE: appearance normal, both eyes and all related structures EYELID: eyelids normal CONJUNCTIVA: Yes conjunctivae normal SCLERA: sclerae normal CORNEA: Yes corneas normal PUPIL: Yes Equal, round and reactive pupils present DIRECT OPHTHALMOSCOPY: Yes no papilledema Neck/C-Spine: COMMON NORMALS: full ROM, no lymphadenopathy, supple, no meningeal signs, no JVD and Thyroid normal GENERAL: Yes normal visual inspection and Yes trachea midline THYROID: Thyroid normal CERVICAL SPINE: Yes cervical ROM normal Lymph: LYMPHATIC: no lymphadenopathy noted and no lymphedema noted Chest: COMMONS NORMALS: normal inspection of the chest and normal palpation of entire chest wall Resp: COMMON NORMALS: normal respiratory effort, No retractions, No use of accessory muscles and clear to auscultation bilaterally EFFORT & INSPECTION: Yes able to speak in complete sentences and Yes symmetric chest movement AUSCULTATION: clear to auscultation bilaterally Cardio: COMMON NORMALS: no JVD and regular rhythm RHYTHM: regular rhythm GI: COMMON NORMALS: Normal to inspection, nondistended, normoactive bowel sounds present, Soft to palpation, No hepatosplenomegaly present, no masses and no bruits INSPECTION: Yes normal to inspection AUSCULTATION: Yes normoactive bowel sounds PALPATION: Yes Soft to palpation and Yes No hepatosplenomegaly present PERCUSSION: normal to percussion RECTAL EXAM: deferred : COMMON NORMALS: Yes no CVA tenderness, Yes normal external appearance, Yes normal appearance of the vagina, Yes normal appearance of the cervix, Yes No adnexal tenderness and Yes no masses BLADDER/KIDNEY EXAM: Yes no CVA tenderness Back/Pelvis: COMMON NORMALS: no CVA tenderness, thoracic and lumbar spine normal to inspection, no thoracic nor lumbar tenderness and thoraco-lumbar ROM normal THORACIC SPINE/UPPER BACK: Yes normal to inspection LUMBAR SPINE/LOWER BACK: Yes normal to inspection Extremity: COMMON NORMALS: normal to inspection, full ROM and capillary refill normal GENERAL: Yes normal exam except as noted Neuro: COMMON NORMALS: patient oriented x3, CN's II-XII intact bilaterally, moves all extremities, no focal motor deficits, no sensory deficits noted, deep tendon reflexes 2+ bilaterally and gait normal MENINGEAL SIGNS: Yes no meningeal signs Psych: COMMON NORMALS: mental status grossly normal, Normal thought process present, cooperative, normal affect, speech normal, activity/motor behavior normal, denies hallucinations, denies homicidal ideation and denies suicidal ideation APPEARANCE: Yes grossly normal ATTITUDE: Yes calm ACTIVITY/MOTOR BEHAVIOR: Yes appropriate eye contact SPEECH: Yes normal speech THOUGHT PROCESS: Normal thought process present THOUGHT CONTENT: Yes Normal thought content present ATTENTION/CONCENTRATION: Yes attention grossly intact MEMORY/COGNITION: Yes memory grossly intact INSIGHT: Good insight present (Psych) JUDGEMENT: Good judgement present (Psych) Skin: COMMON NORMALS: no rashes or lesions noted, no wounds, turgor normal, no jaundice, no petechiae and no mottling GENERAL SKIN EXAM: no rashes or lesions noted and turgor normal Course Vital Signs: Vital signs: Vital Signs Temperature 100.1 F H 11/14/24 13:08 Pulse Rate 135 H 11/14/24 13:36 Respiratory Rate 18 11/14/24 13:08 Blood Pressure 130/57 11/14/24 13:36 Pulse Oximetry 94 11/14/24 13:36 Oxygen Delivery Me thod Nasal Cannula 11/14/24 13:36 Oxygen Flow Rate 2 11/14/24 13:08 MDM - Nausea/Vomiting/Diarrhea Medical Decision Making 53 yo female patient presents to ER with n/d and abd pain x 3 days with fever. Pt states she also has chest pain and SOB. Pt states she was discharged from the hospital 2 weeks ago with pneumonia and found out she has COPD and CHF. Pt is tachycardic with blood pressure of 92/56 and remp of 100.1. Given patients c/o fever, I will do a septic workup at this time. Pt does have history of CHF but does not have PE findings of fluid overload and given concerns for sepsis, I will start IV fluids at this time. labs including cardiac enzymes and chest xray ordered at this time. Patient has been given 1 liter normal saline and blood pressure is now normotensive. Will give tylenol. Pt remains tachycardic at this time. Pt remains with normal cap refill, strong peripheral pulses, no evidence of hypoxemia. Pt has provided a urine sample at this time. Will repeat 1 liter normal saline with caution given patient history of CHF. given chest pain , SOB and tachycardic will CTa Chest abd and pelvis at this time. Pt is + for c.diff will start flagyl and Vanc at this time. CT chest abd pelvis still pending at this time. Will plan on admission. Hospitalist at bedside to see patient Lab Data 11/14/24 13:20 11/14/24 13:20 Radiology Impressions Chest X-Ray 11/14/24 13:20 IMPRESSION: No acute findings. Laboratory Results WBC 13.45 10^3/uL (3.29-11.43) H 11/14/24 13:20 RBC 5.28 10^6/uL (3.85-5.65) 11/14/24 13:20 Hgb 12.60 g/dL (11.27-16.99) 11/14/24 13:20 Hct 42.3 % (36-47) 11/14/24 13:20 MCV 80.1 fl (85-98) L 11/14/24 13:20 MCH 23.9 pg (27-33) L 11/14/24 13:20 MCHC 29.8 g/dL (30-55) L 11/14/24 13:20 RDW 18.9 % (12.1-15.1) H 11/14/24 13:20 Plt Count 238 10^3/cmm (157-399) 11/14/24 13:20 MPV 10.3 fL (7.4-10.4) 11/14/24 13:20 Neut % (Auto) 84.2 % 11/14/24 13:20 Lymph % (Auto) 6.7 % 11/14/24 13:20 [place] % (Auto) 7.1 % 11/14/24 13:20 Eos % (Auto) 0.8 % 11/14/24 13:20 Baso % (Auto) 0.5 % 11/14/24 13:20 Neut # (Auto) 11.32 10^3/uL (1.8-7.7) H 11/14/24 13:20 Lymph # (Auto) 0.9 10^3/uL (0.8-4.8) 11/14/24 13:20 [place] # (Auto) 1.0 10^3/uL (0.2-0.9) H 11/14/24 13:20 Eos # (Auto) 0.1 10^3/uL (0.0-0.8) 11/14/24 13:20 Baso # (Auto) 0.1 10^3/uL (0.0-0.1) 11/14/24 13:20 Nucleated RBC % (auto) 0 % 11/14/24 13:20 Nucleated RBCs # 0.0 /100WBC 11/14/24 13:20 Sodium 133 mmol/L (136-145) L 11/14/24 13:20 Potassium 4.2 mmol/L (3.5-5.1) 11/14/24 13:20 Chloride 95 mmol/L (98-107) L 11/14/24 13:20 Carbon Dioxide 25 mmol/L (22-29) 11/14/24 13:20 Anion Gap 17.2 (5-19) 11/14/24 13:20 BUN 14 mg/dL (6-20) 11/14/24 13:20 Creatinine 1.1 mg/dL (0.5-0.9) H 11/14/24 13:20 GFR Calculation 52.0 mL/min (90-130) L 11/14/24 13:20 Glucose 167 mg/dL (65-115) H 11/14/24 13:20 Calculated Osmolality 280 mOsm/kg (285-295) L 11/14/24 13:20 Lactic Acid 2.4 mmol/L (0.5-2.2) H 11/14/24 13:20 Lactic Acid (Sepsis) 1.5 mmol/L (0.5-2.2) 11/14/24 15:30 Calcium 9.2 mg/dL (8.5-10.5) 11/14/24 13:20 Total Bilirubin 0.4 mg/dL (0.15-1.2) 11/14/24 13:20 AST 24 U/L (0-32) 11/14/24 13:20 ALT 34 U/L (0-33) H 11/14/24 13:20 Alkaline Phosphatase 172 U/L (35-105) H 11/14/24 13:20 Troponin T Baseline 17 ng/L (0-10) H 11/14/24 13:20 Troponin T 120 Minute 20.80 ng/L (0-10) H 11/14/24 15:30 Delta Troponin T 3.80 ABS# (0-10) 11/14/24 15:30 NT-Pro-B Natriuret Pep 176 pg/mL (0-125) H 11/14/24 13:20 Total Protein 7.3 g/dL (6.6-8.7) 11/14/24 13:20 Albumin 3.7 g/dL (3.5-5.2) 11/14/24 13:20 Globulin 3.6 g/dL (1.3-4.6) 11/14/24 13:20 Lipase 16 U/L (13-60) 11/14/24 13:20 C. difficile (PCR) Positive (Negative) H 11/14/24 13:30 All radiology interpretation(s) finalized by discharge Discharge Plan Discharge Patient Disposition: Admitted As Inpatient Clinical Impression: Clostridium difficile infection Condition: Stable Coding Level of Care Code ED Hyster Machine Operator for Margie Pichardo
[2024-11-14 13:36] LABS: Basophils # 0.1 10^3/uL (0.0-0.1); Basophils % 0.5 %; Eosinophils # 0.1 10^3/uL (0.0-0.8); Eosinophils % 0.8 %; Hematocrit 42.3 % (36-47); Lymphocytes # 0.9 10^3/uL (0.8-4.8); Lymphocytes % 6.7 %; Mean Corpuscular HGB Conc 29.8 g/dL (30-55); Mean Corpuscular Hemoglobin 23.9 pg (27-33); Mean Corpuscular Volume 80.1 fl (85-98); Mean Platelet Volume 10.3 fL (7.4-10.4); Monocytes % 7.1 %; Neutrophils # 11.32 10^3/uL (1.8-7.7); Neutrophils % 84.2 %; Nucleated Red Blood Cells % 0 %; Platelet Count 238 10^3/cmm (157-399); Red Blood Count 5.28 10^6/uL (3.85-5.65); Red Cell Distribution Width 18.9 % (12.1-15.1); White Blood Count 13.45 10^3/uL (3.29-11.43)
[2024-11-14 13:54] LABS: Lactic Sepsis W/Reflex 2.4 mmol/L (0.5-2.2)
[2024-11-14 13:57] LABS: Troponin(5th) Baseline 17 ng/L (0-10)
[2024-11-14 14:04] LABS: Alanine Aminotransferase 34 U/L (0-33); Albumin Level 3.7 g/dL (3.5-5.2); Alkaline Phosphatase 172 U/L (35-105); Anion Gap 17.2 (5-19); Aspartate Amino Transferase 24 U/L (0-32); Blood Urea Nitrogen 14 mg/dL (6-20); Calcium 9.2 mg/dL (8.5-10.5); Carbon Dioxide 25 mmol/L (22-29); Chloride 95 mmol/L (98-107); Globulin 3.6 g/dL (1.3-4.6); Glucose 167 mg/dL (65-115); Lipase 16 U/L (13-60); NT Pro B Type Natriuretic Pept 176 pg/mL (0-125); Osmolality Calculated 280 mOsm/kg (285-295); Potassium 4.2 mmol/L (3.5-5.1); Sodium 133 mmol/L (136-145); Total Bilirubin 0.4 mg/dL (0.15-1.2); Total Protein 7.3 g/dL (6.6-8.7)
[2024-11-14 14:10] LABS: Creatinine Clr Calc Pharmacy 78.4539
[2024-11-14 14:37] LABS: Reflex Lactate Order REFLEX LACTIC ORDERD
--- NOTE | 2024-11-14 14:41 | CTR_ITS ---
PROCEDURE INFORMATION: Exam: CTA Chest With Contrast Exam date and time: 11/14/2024 3:52 PM Age: 53 years old Clinical indication: Abdominal pain; Chest pressure; Additional info: Chest pain tachy TECHNIQUE: Imaging protocol: Computed tomographic angiography of the chest with contrast. Exam focused on the arteries. 3D rendering (Not supervised by radiologist): MIP and/or 3D reconstructed images were created by the technologist. Radiation optimization: All CT scans at this facility use at least one of these dose optimization techniques: automated exposure control; mA and/or kV adjustment per patient size (includes targeted exams where dose is matched to clinical indication); or iterative reconstruction. Contrast material: OMNIPAQUE 350; Contrast volume: 100 ml; Contrast route: INTRAVENOUS (IV); COMPARISON: CT chest wo con [id number] 10/29/2024 10:24 PM RADIATION DOSE METRICS: Total DLP (mGy-cm): 1665.78 FINDINGS: Pulmonary arteries: No central pulmonary emboli are identified. Evaluation of the segmental and subsegmental vessels is limited due to suboptimal opacification of the pulmonary arteries related to timing of the intravenous contrast bolus and mild patient breathing motion artifact. The RV/LV ratio is normal measured at 0.8. Aorta: Unremarkable. No aortic aneurysm. No aortic dissection. Lungs: There is mild residual patchy infiltrate in the right lower lobe, markedly improved since the prior study. There is mild atelectasis at the left lung base. There is mild hazy density throughout the lungs bilaterally which could be related to mild inflammation or pulmonary vascular congestion. Small calcified granulomata are again seen in the lower lobes bilaterally. Pleural spaces: No pneumothorax. No significant pleural effusion. Heart: No significant cardiomegaly. No pericardial effusion. Lymph nodes: Subcentimeter mediastinal and hilar lymph nodes are noted.. No pathologically enlarged lymph nodes are detected. Calcified lymph nodes are noted. Bones/joints: Unremarkable. No acute fracture. There are mild degenerative changes involving the thoracic spine. Soft tissues: Unremarkable. PROCEDURE INFORMATION: Exam: CT Abdomen And Pelvis With Contrast Exam date and time: 11/14/2024 3:52 PM Age: 53 years old Clinical indication: Abdominal pain; Chest pressure; Additional info: Chest pain tachy TECHNIQUE: Imaging protocol: Computed tomography of the abdomen and pelvis with contrast. Radiation optimization: All CT scans at this facility use at least one of these dose optimization techniques: automated exposure control; mA and/or kV adjustment per patient size (includes targeted exams where dose is matched to clinical indication); or iterative reconstruction. Contrast material: OMNIPAQUE 350; Contrast volume: 100 ml; Contrast route: INTRAVENOUS (IV); COMPARISON: CT chest wo con [id number] 10/29/2024 10:24 PM RADIATION DOSE METRICS: Total DLP (mGy-cm): 1665.78 FINDINGS: Lungs: Visualized lung bases are clear. Liver: Enlarged measuring 19.4 cm in length. There is diffuse decreased attenuation throughout the liver compatible with fatty infiltration.. Gallbladder and biliary ducts: Surgically absent. No significant biliary ductal dilatation. Pancreas: Unremarkable. Spleen: Enlarged measuring 19.5 cm in length. Small calcified granulomata are noted. Adrenal glands: Unremarkable. Kidneys and ureters: Unremarkable. No significant hydronephrosis. Stomach and bowel: There is increased fluid content throughout the large bowel with mild thickening of the wall throughout. There is stranding of the fat in the right lower quadrant adjacent to the cecum and proximal ascending colon. There is mild dilatation of a small bowel loop in the central pelvis measuring 3 cm in caliber with an air-fluid level noted. Remaining small bowel loops are normal in caliber and are unremarkable. Appendix: The appendix is not identified with certainty. There is mild stranding of the fat within the right lower quadrant adjacent to the cecum and proximal ascending colon. Intraperitoneal space: There is mild stranding of the fat surrounding the cecum and proximal ascending colon in the right lower quadrant. No significant free fluid is seen. No free air detected. Vasculature: The abdominal aorta is normal in caliber. No abdominal aortic aneurysm. Lymph nodes: There are several subcentimeter mesenteric lymph nodes seen in the right lower quadrant. Subcentimeter retroperitoneal lymph nodes are noted. No pathologically enlarged lymph nodes are seen. Urinary bladder: Unremarkable as visualized. Reproductive: The uterus is absent. Bones/joints: Intact. No acute fracture. There are degenerative changes involving the lumbar and visualized lower thoracic spine. Soft tissues: There is mild edema within the subcutaneous fat of the abdominal wall. CT/CT angio chest w abd pel w con IMPRESSION: 1. Markedly improved right lower lobe pneumonia with minimal residual infiltrate remaining at the right lung base. 2. Mild hazy density throughout the lungs which may represent mild diffuse inflammation or pulmonary vascular congestion. 3. No central pulmonary embolism seen. Evaluation of the segmental and subsegmental vessels is limited due suboptimal contrast opacification and mild patient breathing motion artifact. A small pulmonary embolism cannot be excluded on this exam. 4. Evidence for old granulomatous disease. IMPRESSION: 1. Increased fluid content throughout the colon with mild diffuse thickening of the wall suggesting colitis or other diarrheal process. There is stranding of the fat surrounding the cecum and proximal ascending colon which could be related to the colitis. Findings could also potentially be related to appendicitis, however the appendix is not identified with certainty on this exam. There are several subcentimeter mesenteric lymph nodes also noted in the right lower quadrant which could be related to mesenteric adenitis. Please correlate clinically. 2. Mildly dilated small bowel loop in the central pelvis with air-fluid levels suggesting focal ileus. Remaining small bowel loops are normal in caliber. 3. Hepatomegaly with fatty infiltration. 4. Splenomegaly.
[2024-11-14] MEDS: acetaminophen 500 mg Tablet 1000 MG PO (15:10)
[2024-11-14] MEDS: sodium chloride 0.9% 1,000 ML 999 ML IV (15:10)
[2024-11-14 15:33] LABS: C.Diff PCR (Lab) POSITIVE (Negative)
--- NOTE | 2024-11-14 15:44 | ECG_ITS ---
[facility]: 2024[facility]14 Pat Name: Maya Figueroa Department: Room: Gender: Female Data Center Consultant: : 1970 Requested By: Carol Choi Order Number: [id number] Reading MD: VIRIDIANA DELEON Measurements Intervals [place] Rate: 115 P: 43 WI: 154 QRS: 0 QRSD: 93 T: 65 QT: 309 QTc: 428 Interpretive Statements SINUS TACHYCARDIA MINIMAL VOLTAGE CRITERIA FOR LVH, CONSIDER NORMAL VARIANT [MEETS CRITERIA IN ONE OF: R(aVL), S(V1), R(V5), R(V5/V6)+S(V1)] NONSPECIFIC T-WAVE ABNORMALITY ABNORMAL RHYTHM ECG Compared to ECG 10/30/2024 04:33:51 T-wave abnormality now present Electronically Signed On 11-18-2024 23:01:25 CDT by VIRIDIANA DELEON [email or web address] [id number]
[2024-11-14 15:58] LABS: Lactic Acid level (Lactate) 1.5 mmol/L (0.5-2.2)
--- NOTE | 2024-11-14 16:26 | PM.HP ---
Providers/Chief Complaint Primary Care Provider: Andrea Ren DO Chief Complaint: diarrhea, n/v History of Present Illness Maya Figueroa is a 53 year old female with a past medical history of struct of sleep apnea on BiPAP, metabolic syndrome, diastolic CHF, type 2 diabetes, recent history of hospitalization for right lower lobe pneumonia, who presents [facility] due to nausea, vomiting, abdominal pain, diarrhea for the last 3 days. Currently patient alert and oriented x 3, following all commands, she does report feeling febrile temperature 100.1, heart rates were in the 130s in the emergency room, currently 110, sinus rhythm, does report lightheadedness, no dizziness, no chest pain, no palpitations, she tells me that she completed antibiotics that she was sent home on, Review of Systems Const: Denies: fever(s) Card: Denies: chest pain Resp: Denies: dyspnea GI: Denies: abdominal pain Medications/Allergies Home Medications ?Medication ?Instructions ?Recorded ?Confirmed ?Last Taken ?Type acetaminophen 500 mg tablet 500 mg PO QID PRN Pain 12/12/19 10/30/24 Unknown History atorvastatin 40 mg PO BEDTIME 12/12/19 10/30/24 10/28/24 20:00 History baclofen 5 mg PO BID 12/12/19 10/30/24 10/29/24 08:00 History cetirizine 10 mg tablet 10 mg PO DAILY 12/12/19 10/30/24 10/29/24 08:00 History docusate sodium 100 mg PO BID 12/12/19 10/30/24 10/29/24 08:00 History epinephrine 0.3 mg IM PRN PRN anaphylaxis 12/12/19 10/30/24 Unknown History gabapentin 600 mg tablet 800 mg PO TID 12/12/19 10/31/24 10/29/24 08:00 History glimepiride 4 mg PO BID 12/12/19 10/30/24 10/29/24 08:00 History hydrochlorothiazide 25 mg PO QAM 12/12/19 10/30/24 12/11/19 History metformin 1,000 mg PO BID 12/12/19 10/30/24 10/29/24 08:00 History empagliflozin 25 mg tablet 25 mg PO QAM 09/18/21 10/30/24 10/29/24 08:00 History (Jardiance) linaclotide 290 mcg capsule 290 mcg PO QAM 09/18/21 10/30/24 10/29/24 08:00 History (Linzess) montelukast 10 mg tablet 10 mg PO DAILY 09/18/21 10/30/24 10/29/24 08:00 History (Singulair) pantoprazole 40 mg tablet,delayed 40 mg PO BID 09/18/21 10/30/24 10/29/24 08:00 History release (Protonix) ropinirole 1 mg tablet 2 mg PO BEDTIME 09/18/21 10/30/24 10/28/24 20:00 History meclizine 25 mg tablet (Dramamine 25 mg PO TID PRN motion sickness 10/13/23 10/30/24 Unknown Rx (meclizine)) #20 tabs ondansetron 4 mg disintegrating 4 mg PO Q6H PRN nausea and 04/12/24 10/30/24 10/29/24 08:00 Rx tablet vomiting #12 tabs aripiprazole 20 mg tablet 20 mg PO DAILY 10/30/24 10/30/24 10/29/24 08:00 History benztropine 1 mg tablet 1 mg PO BID 10/30/24 10/30/24 10/29/24 08:00 History cholecalciferol (vitamin D3) 10 See Rx Instructions .Route .COMPLEX 10/30/24 10/30/24 10/29/24 08:00 History mcg (400 unit) tablet hydroxyzine pamoate 50 mg capsule 50 mg PO BEDTIME 10/30/24 10/30/24 10/28/24 20:00 History insulin lispro 100 unit/mL See Rx Instructions .Route .COMPLEX 10/30/24 10/30/24 10/29/24 08:00 History subcutaneous pen (Humalog KwikPen (U-100) Insulin) nortriptyline 25 mg capsule 75 mg PO BEDTIME 10/30/24 10/30/24 10/28/24 20:00 History tirzepatide 15 mg/0.5 mL 15 mg SUBCUT Q7D 10/30/24 10/30/24 Unknown History subcutaneous pen injector (Mounjaro) venlafaxine 75 mg capsule,extended 75 mg PO DAILY 0510/30/24 10/29/24 08:00 History release 24 hr albuterol sulfate 90 mcg/actuation 90 mcg inhalation Q4H PRN 10/31/24 10/31/24 Unknown History aerosol inhaler Shortness Of Breath Or Wheezing azelastine 137 mcg (0.1 %) nasal 2 spray intranasal BID 10/31/24 10/31/24 Unknown History spray bumetanide 1 mg tablet 1 mg PO BID 10/31/24 10/31/24 Unknown History diclofenac sodium 1 % topical gel 2 g topical QID 10/31/24 10/31/24 Unknown History estradiol 0.01% (0.1 mg/gram) 1 g vaginal PRN 10/31/24 10/31/24 Unknown History vaginal cream famotidine 40 mg tablet 40 mg PO BEDTIME 10/31/24 10/31/24 Unknown History ferrous sulfate 325 mg (65 mg 325 mg PO EVERY OTHER DAY 10/31/24 10/31/24 Unknown History iron) tablet (FeroSul) fesoterodine 4 mg tablet,extended 4 mg PO DAILY 10/31/24 10/31/24 Unknown History release 24 hr galcanezumab-gnlm 120 mg/mL 120 mg SUBCUT Q30D 10/31/24 10/31/24 Unknown History subcutaneous pen injector (Emgality Pen) methenamine hippurate 1 gram tablet 1 g PO BID 10/31/24 10/31/24 Unknown History mometasone 50 mcg/actuation nasal 50 mcg intranasal DAILY 10/31/24 10/31/24 Unknown History spray prucalopride 2 mg tablet 2 mg PO DAILY 10/31/24 10/31/24 Unknown History (Motegrity) insulin glargine 100 unit/mL (3 45 unit (0.45 mL) SUBCUT BID #3 mL 11/02/24 10/30/24 10/29/24 08:00 Rx mL) subcutaneous pen (Lantus Solostar U-100 Insulin) losartan 50 mg tablet 50 mg PO DAILY #30 tabs 11/02/24 Unknown Rx venlafaxine 150 mg 150 mg PO QAM 30 days #30 caps 11/11/24 Unknown Rx capsule,extended release 24 hr (Effexor XR) Allergies Allergy/AdvReac Type Severity Reaction Status Date / Time methocarbamol Allergy Intermediate itching Verified 04/12/24 13:37 Sulfa (Sulfonamide Allergy Unknown Unknown Verified 04/12/24 13:37 Antibiotics) tramadol Allergy ADR-Headach Verified 10/30/24 05:37 e PFSH Acute PFSH: Medical History Uncontrolled type 2 diabetes mellitus Diastolic heart failure Pulmonary hypertension COPD (chronic obstructive pulmonary disease) Diabetes Psychiatric care Medication management Sleep apnea treated with nocturnal BiPAP Hypersomnia Major depressive disorder, recurrent, severe with psychotic symptoms Chronic post-traumatic stress disorder Generalized anxiety disorder Surgical History History of back surgery due to a herniated disk. Hx laparoscopic cholecystectomy History of hysterectomy with bilateral oophorectomy due to menorrhagia H/O shoulder surgery due to Frozen shoulder Family History Father Lung cancer Sister Multiple myeloma Mother Heart disease Social History Smoking and tobacco/nicotine status: former use of tobacco/nicotine Quit status (tobacco/nicotine): has quit using Former quit date comment: She smoked 1/2 PPD for about 6 months Alcohol intake: never Substance/Drug Use: never Current gender identity: Female Female Reproductive History: Spontaneous abortions: No Vitals/I&O/Wt Last Vital Signs Temp 100.1 F H 11/14/24 13:08 Pulse 135 H 11/14/24 13:36 Resp 18 11/14/24 13:08 BP 130/57 11/14/24 13:36 Pulse Ox 94 11/14/24 13:36 O2 Del Method Nasal Cannula 11/14/24 13:36 O2 Flow Rate 2 11/14/24 13:08 11/14/24 11/14/24 11/14/24 06:59 14:59 22:59 Intake Total 1000 / 1000 Balance 1000 / 1000 Weight last 48 hrs Weight 121.109 kg Physical Exam Const: COMMON NORMALS: no acute distress and patient oriented x3 Eye: COMMON NORMALS: Equal, round and reactive pupils present and EOMs intact bilaterally Resp: COMMON NORMALS: normal respiratory effort, No retractions, No use of accessory muscles and clear to auscultation bilaterally AUSCULTATION: clear to auscultation bilaterally Cardio: COMMON NORMALS: no JVD, regular rate, regular rhythm, S1 normal heart sound present and S2 normal heart sound present RATE: regular rate RHYTHM: regular rhythm HEART SOUNDS: S1 normal heart sound present and S2 normal heart sound present GI: COMMON NORMALS: Normal to inspection, nondistended, normoactive bowel sounds present, Soft to palpation and non-tender Extremity: COMMON NORMALS: no pedal edema Neuro: COMMON NORMALS: patient oriented x3, CN's II-XII intact bilaterally and moves all extremities Psych: COMMON NORMALS: mental status grossly normal Data 11/14/24 13:20 11/14/24 13:20 Micro: Microbiology 11/14/24 13:30 Stool Lactoferrin - Final Stool 11/14/24 13:29 Blood Culture - Preliminary Blood SPECIMEN COLLECTED 11/14/24 13:28 Blood Culture - Preliminary Blood SPECIMEN COLLECTED A&P Assessment and plan (1) C. difficile colitis: (2) Uncontrolled type 2 diabetes mellitus: (3) Diastolic heart failure: (4) Pulmonary hypertension: (5) Chronic post-traumatic stress disorder: (6) COPD (chronic obstructive pulmonary disease): (7) Sleep apnea treated with nocturnal BiPAP: (8) Hypersomnia: Plan C. difficile colitis - Isolation precautions - Continue p.o. vancomycin - History of diastolic CHF, has received fluid therapy in the emergency room, appears euvolemic will hold off of further fluid therapy - CT scan abdomen pelvis pending Sepsis febrile state, tachycardia, leukocytosis, elevated lactic acid, elevated creatinine - Could be from C. difficile colitis - Blood cultures pending - Urinalysis ordered - CT scan abdomen pelvis has been ordered by ER provider Bilateral calf pain, venous ultrasound Poorly controlled type 2 diabetes - Resume home Lantus 45 units twice daily - Moderate dose sliding scale Chronic respiratory failure, obstructive sleep apnea, continue home BiPAP Full code Lovenox for DVT prophylaxis PDMP PDMP Reviewed: Not Reviewed Attestations Medical Necessity Statement*: Patient requires hospitalization for C. difficile colitis, sepsis, inpatient, greater than 2 midnights Diagnoses C. difficile colitis A04.72 Uncontrolled type 2 diabetes mellitus Diastolic heart failure I50.30 Pulmonary hypertension I27.20 Chronic post-traumatic stress disorder F43.12 COPD (chronic obstructive pulmonary disease) J44.9 Sleep apnea treated with nocturnal BiPAP G47.30 Hypersomnia G47.10
[2024-11-14 16:36] LABS: Clostridioides Difficile Toxin POSITIVE (Negative)
[2024-11-14] MEDS: vancomycin 125 mg Capsule 500 MG PO (16:36)
[2024-11-14] MEDS: metroNIDAZOLE IV 500 MG/100 ML PREMIX 100 MG IV (16:37)
[2024-11-14 16:43] LABS: Chol HDL Ratio 3.63 mg/dL (0.0-4.40); Cholesterol 98 mg/dL (0-200); HDL Cholesterol 27 mg/dL (60-100); LDL Cholesterol Calculated 44 mg/dL (50-129); LDL HDL Ratio 1.63 RATIO (0.00-3.22); Triglycerides 134 mg/dL (0-150)
[2024-11-14 17:44] LABS: Estmated Average Glucose 214; Hemoglobin A1C 9.1 % (4.0-6.0)
[2024-11-14] MEDS: benztropine 1 mg Tablet PO (18:00)
[2024-11-14] MEDS: enoxaparin 40 mg/0.4 mL Syringe SUBCUT (18:00)
[2024-11-14] MEDS: pantoprazole 40 mg SDV IVP (18:00)
[2024-11-14] MEDS: baclofen 10 mg Tablet 5 MG PO (18:00)
[2024-11-14 18:33] LABS: Glucose Point of Care 97 mg/dL (70-110)
--- OUTSIDE RECORDS SUMMARY | 2024-11-14 18:59 | XMS_ITS | Encounter Summary ---
Author Organization [facility] Address [address] [place] [address] Care Team Providers Care Counter Top Maker Name Role Phone MelissaAndrea westbrook Primary Care Provider [phone] Reason for Visit * Reason Comments Med Refill Encounter Details Date Type Department Care Team (Late st Contact Info) Description 11/13/2024 Refill [facility] [place] [address] [place] [phone] Danita Smith, [facility] [address] [phone] Type 2 diabetes mellitus with hyperglycemia, with long-term current use of insulin ([facility]) Social History Tobacco Use Types Packs/Day Years Used Date Smoking Tobacco: Former Cigarettes Q uit: 09/08/1988 Passive Smoke Exposure: Past Smokeless Tobacco: Never Alcohol Use Standard Drinks/Week Comments No 0 (1 standard drink = 0.6 oz pur e alcohol) Utility Needs Answer Date Recorded In the past 12 months has [employer] electric, gas, oil, or water company threatened to shut off services in your [...] often do you attend chur ch or yazdanism services? 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 [address] [place] [phone] Andrea Ren DO [address] [place] [phone] 12/02/2024 3:00 PM CDT Office Visit [facility] Headache Management [place] [address] [place] [address] Nataliia Gallegos, [facility] [address] [address] 12/17/2024 11:00 AM CDT Appointment [facility] Pulmonary Function Testing [address] [place] [address] Andrea Ren DO [address] [place] [phone] 12/17/2024 1:10 PM CDT Office Visit [facility] [address] [place] [phone] Danita Smith [facility] [address] [place] [phone] 02/03/2025 10:00 AM CDT Office Visit [facility] Urology- [place] [address] Entrance [address], 3rd [place] [address] Kylie Villafuerte, THERESA [address] [place] [address] 03/26/2025 11:10 AM CDT Appointment [facility] [address] [place] [address] Melissa Anand MD [address] [place] [address] 03/30/2025 11:00 AM CDT Office Visit [facility] Gastroenterology- [place] 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 [phone] Aayush Jc MD [address] [place] [phone] COLONOSCOPY 11/11/2025 10:50 AM CDT Office Visit [facility] Gopal Jacob Phyllis [address] [place] [address] Melissa Anand MD [address] [place] [address] Scheduled Procedures Name Priority Associated Diagnoses Date/Ti me COLONOSCOPY Iron deficiency anemia, unspecified iron deficiency anemia type Chronic idiopathic constipation Colon cancer screening 08/25/2025 8:00 AM CDT documented as of this encounter Visit Diagnoses Diagnosis Type 2 diabetes mellitus with hyperglycemia, with long-term current use of insulin ([facility]) documented in this encounter Additional Health Concerns Assessment Noted Time PHQ-9 Depression Total Score: 6 11/13/19 25 3:00 PM CDT documented as of this encounter Care Teams Counter Top Maker Relationship Specialty Start Date End Date Andrea Ren DO [address] [place] [address] PCP - General Family Practice 08/03/21 documented as of this encounter
--- OUTSIDE RECORDS SUMMARY | 2024-11-14 18:59 | XMS_ITS | Encounter Summary ---
Author Organization [facility] Address [address] [place] [address] Care Team Providers Care Fur Trapper Name Role Phone MelissaAndrea westbrook Primary Care Provider [phone] Encounter Details Date Type Department Care Team (Late st Contact Info) Description 11/05/2024 External Device Data ST[place] ABSTRACTION Provider, Abstract NO ADDRESS ON FILE Social History Tobacco Use Types Packs/Day Years Used Date Smoking Tobacco: Former Cigarettes Q uit: 09/08/1988 Passive Smoke Exposure: Past Smokeless Tobacco: Never Alcohol Use Standard Drinks/Week Comments No 0 (1 standard drink = 0.6 oz pur e alcohol) Utility Needs Answer Date Recorded In the past 12 months has [employer], gas, oil, or water [employer] threatened to shut off services in your [...] 11/01/2023 How often do you attend chur or episcopalian services? 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 Gender Identity Not on file Sexual Orientation Not on file documented as of this encounter Plan of Treatment Upcoming Encounters Date Type Department Care Team (Late st Contact Info) Description 11/25/2024 11:40 AM CDT Office Visit [facility] [address] [address] Andrea Ren, [address] [place] [phone] 12/02/2024 3:00 PM CDT Office Visit [facility] Headache Management Sarah [address] [place] [address] Nataliia Gallegos, [facility] [address] [facility] [address] [place] [address] 12/17/2024 11:00 AM CDT Appointment [facility] Pulmonary Function Testing [address] [place] [address] Andrea Ren, DO [address] [place] [address] 12/17/2024 1:10 PM CDT Office Visit [facility] [address] [address] Danita Smith, [facility] [address] [place] [address] 02/03/2025 10:00 AM CDT Office Visit [facility] Urology- [place] [address] Entrance B, 3rd [place] [address] Kylie Villafuerte NP [address] [facility] [address] [place] [address] 03/26/2025 11:10 AM CDT Appointment [facility] Breast [place] [address] [facility] [address] [place] [phone] Melissa Anand MD [address] [place] [address] 03/30/2025 11:00 AM CDT Office Visit [facility] Gastroenterology- [place] [address] [place] [phone] Corin De Leon, THERESA [address] [place] [phone] 05/14/2025 11:20 AM LUNCHEONETTE MANAGER Office Visit [facility] [address] [place] [address] Ora De Anda PA [address] [facility] [address] [place] [address] 07/12/2025 10:45 AM LUNCHEONETTE MANAGER Office Visit [facility] Sleep [place] 12[address] [facility] [address]E [place] [address] Dorys Cano, [facility] [address] [facility] [address] [place] [phone] 08/25/2025 8:00 AM CDT Hospital Encounter [facility] Endoscopy 1235 [place] [address] Aayush Jc MD [address] [facility] [address] [place] [phone] 08/25/2025 8:00 AM CDT - 08/25/2025 8:20 AM CDT Surgery [facility] Endoscopy 1235 [place] [address] Aayush Jc MD [address] [place] [address] COLONOSCOPY 11/11/2025 10:50 AM CDT Office Visit [facility] Gopal Da Silva [address] [place] [address] Melissa Anand MD [address] [place] [address] Scheduled Procedures Name Priority Associated Diagnoses Date/Ti me COLONOSCOPY Iron deficiency anemia, unspecified iron deficiency anemia type Chronic idiopathic constipation Colon cancer screening 08/25/2025 8:00 AM CDT documented as of this encounter Visit Diagnoses Not on filedocumented in this encounter Additional Health Concerns Assessment Noted Time PHQ-9 Depression Total Score: 6 10/09/19 25 3:00 PM CDT documented as of this encounter Care Teams Fur Trapper Relationship Specialty Start Date End Date Andrea Ren DO [address] [place] [address] PCP - General Family Practice 08/03/21 documented as of this encounter
--- OUTSIDE RECORDS SUMMARY | 2024-11-14 18:59 | XMS_ITS | Encounter Summary ---
Author Organization [facility] Address [address] [place] [address] Care Team Providers Care Retail Center Receptionist Name Role Phone MelissaAndrea westbrook Primary Care Provider [phone] Encounter Details Date Type Department Care Team (Latest Contact Info) Description 11/07/2024 Results Follow-Up [facility] Family Medicine [place] [address] [address] Danita Smith, COKE BURNER [address] [place] [address] CBC WITH DIFFERENTIAL, COMPREHENSIVE METABOLIC PANEL Social History Tobacco Use Types Packs/Day Years Used Date Smoking Tobacco: Former Cigarettes Q uit: 09/08/1988 Passive Smoke Exposure: Past Smokeless Tobacco: Never Alcohol Use Standard Drinks/Week Comments No 0 (1 standard drink = 0.6 oz pur e alcohol) Utility Needs Answer Date Recorded In the past 12 months has [employer], gas, oil, or water company threatened to [...] often do you attend chur ch or gnosticism services? 1 to 4 times per year 11/01/2023 Do you belong to any clubs o r organizations such as jainism groups, unions, fraternal or athletic groups, or [...] on file Legal Sex Female 2:33 AM PROTECTIVE SIGNAL INSTALLER Gender Identity Not on file Sexual Orientation Not on file documented as of this encounter Plan of Treatment Upcoming Encounters Date Type Department Care Team (Late st Contact Info) Description 11/25/2024 11:40 AM CDT Office Visit [facility] [address] [place] [address] Andrea Ren, DO [address] [place] [address] 12/02/2024 3:00 PM CDT Office Visit [facility] Headache Management [place] [address] [place] [address] Nataliia Gallegos, [facility] [address] [place] [address] 12/17/2024 11:00 AM CDT Appointment [facility] Pulmonary Function Testing [address] [place] [address] [place] [address] Andrea Ren, DO [address] [place] [address] 12/17/2024 1:10 PM CDT Office Visit [facility] [address] [address] Danita Smith [facility] [address] [place] [address] 02/03/2025 10:00 AM CDT Office Visit [facility] Urology- [place] [address] Entrance B, 3rd [place] [address] Kylie Villafuerte NP [address] [place] [address] 03/26/2025 11:[address] [facility] [address] [facility] [address] [place] [address] Melissa Anand MD [address] [place] [address] 03/30/2025 11:00 AM CDT Office Visit [facility] Gastroenterology- [place] [address] [place] [address] Corin De Leon NP [address] [place] [address] 05/14/2025 11:20 AM PROTECTIVE SIGNAL INSTALLER Office Visit [facility] Endocrinology [facility] [address] [place] [address] Ora De Anda, ELSA [address] [place] [address] 07/12/2025 10:45 AM PROTECTIVE SIGNAL INSTALLER Office Visit [facility] Sleep Center 1235 [facility] [address] [place] [address] Dorys Cano, [facility] 1235 [facility] [address] [place] [address] 08/25/2025 8:00 AM CDT Hospital Encounter [facility] Endoscopy 1235 [place] [address] Aayush Jc MD [address] [place] [address] 08/25/2025 8:00 AM CDT - 08/25/2025 8:20 AM CDT Surgery [facility] Endoscopy [address] [place] [address] Aayush Jc MD [address] [place] [address] COLONOSCOPY 11/11/2025 10:50 AM CDT Office Visit [facility] KLAUSRobertoAshu [place] [address] [place] [address] Melissa Anand MD [address] [place] [address] Scheduled Procedures Name Priority Associated [...] documented as of this encounter Care Teams Retail Center Receptionist Relationship Specialty Start Date End Date Andrea Ren DO [address] [place] [address] PCP - General Family Practice 08/03/21 documented as of this encounter
--- OUTSIDE RECORDS SUMMARY | 2024-11-14 18:59 | XMS_ITS | Encounter Summary ---
Author Organization [facility] Address [address] [place] [address] Care Team Providers Care Travel Consultant Name Role Phone Randy Ren MD Primary Care Provider [phone] Reason for Referral * Outpatient Services (Routine) - Closed Specialty Diagnoses / Procedures Referred By Contac t Referred To Contact Diagnoses Encounter for screening mammogram for malignant neoplasm of breast Procedures MAMMO DIGITAL SCREEN BILAT Randy Ren MD [address] [place] [address] Phone: tel: fax: Referral ID Status Reason Start Date Expiration Date Visits Re quested Visits Authorized [id number] Closed 08/18/2015 09/17/2016 1 1 NCE WHEEL ARM BURNISHER Encounter Details Date Type Department Care Team (Latest Contact Info) Description 08/18/2015 Ancillary Orders [facility] Pre-Registration Elbert CALL TO MAKE APPOINTMENT ONLY [address] [place] [address] Randy Ren MD [address] [place] [address] Encounter for screening mammogram for malignant neoplasm of breast (Primary Dx) Social History Tobacco Use Types Packs/Day Years Used Date Smoking Tobacco: Former Cigarettes 0 09/09/1987 - 09/08/1988 Smokeless Tobacco: Never Alcohol Use Standard Drinks/Week Comments No 0 (1 standard drink = 0.6 oz pur e alcohol) Comments No Sex and Gender Information Value Date Recorded Sex Assigned at Not on file Legal Sex Female 6:05 AM BALANCE WHEEL ARM BURNISHER Gender Identity Not on file Sexual Orientation Not on file Occupation Industry Job Start Date Job End Date Not on file Not on file Not on file Not on file documented as of this encounter Plan of Treatment Not on file documented as of this encounter Results * MAMMO DIGITAL SCREEN BILAT (09/06/2015 10:51 AM CDT) Anatomical Region Laterality Modality Breast Bilateral Mammography 09/06/2015 11:0 8 AM CDT Impressions 09/09/2015 11:28 AM CDT IMPRESSION: Patient needs to return for further evaluation of bilateral axillary findings with focused ultrasound. [id number] Narrative 09/09/2015 11:28 AM CDT BILATERAL SCREENING MAMMOGRAM PATIENT COMPLAINT: No concerns. FAMILY HISTORY: Breast cancer in paternal cousin at age 40. Pancreatic cancer in maternal uncle at age 30. Lung cancer in father. TISSUE DENSITY: The breasts are almost entirely fat. COMPARISON EXAM(S): None. Baseline. IMAGES OBTAINED: Standard 4-view mammogram. FINDINGS: RIGHT BREAST: No suspicious finding in the breast. Small plump nodules are present in the axillary region. LEFT BREAST: No suspicious finding in the breast. Prominent lymph node is present in the axilla. This digital mammogram was also analyzed by the Computer Aided Detection System (CAD), E[employer]del ImageChecker, Version 8.3. Randy Ren MD MAMMO ORDERABLES Final Result documented in this encounter Visit Diagnoses Diagnosis Encounter for screening mammogram for malignant neoplasm of breast- Primary Other screening mammogram Encounter for screening mammogram for malignant neoplasm of breast Other screening mammogram documented in this encounter Additional Health Concerns Infection Onset Date Last Indicated Resolved Time MRSA Comment:Resolved 07/30/2018, Infection Prevention Nares 12/15/15 12/16/2015 12/16/2015 07/30/2018 10:47 AM BALANCE WHEEL ARM BURNISHER R/O COVID-19 03/01/2020 03/01/2020 03/03/2020 1:01 AM CDT documented as of this encounter Care Teams Travel Consultant Relationship Specialty Start Date End Date Randy Ren MD [address] [place] [address] PCP - General Family Practice 01/25/15 documented as of this encounter
--- OUTSIDE RECORDS SUMMARY | 2024-11-14 18:59 | XMS_ITS | Encounter Summary ---
Author Organization [facility] Address [address] [place] [address] Care Team Providers Care Zoning Assistant Name Role Phone Randy Ren MD Primary Care Provider [phone] Encounter Details Date Type Department Care Team (Latest Contact Info) Description 09/06/2003 Outpatient Historical [facility] Medicine [place] [address] [place] [phone] Cachorro Mackay MD [address] [place] [phone] ALLERGIC RHINITIS NOS (Primary Dx); ACUTE FRONTAL SINUSITIS Social History Tobacco Use Types Packs/Day Years Used Date Smoking Tobacco: Never Assessed Comments Unknown Sex and Gender Information Value Date Recorded Sex Assigned at Not on file 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 Gender Identity Not on file Sexual Orientation Not on file documented as of this encounter Plan of Treatment Not on file documented as of this encounter Visit Diagnoses Diagnosis Allergic rhinitis, cause unspecified- Primary Acute frontal sinusitis documented in this encounter Additional Health Concerns Infection Onset Date Last Indicated Resolved Time MRSA Comment:Resolved 07/30/2018, Infection Prevention Nares 12/15/15 12/16/2015 12/16/2015 07/30/2018 10:47 AM LAND CLASSIFIER R/O COVID-19 03/01/2020 03/01/2020 03/03/2020 1:01 AM CDT documented as of this encounter Care Teams Zoning Assistant Relationship Specialty Start Date End Date Randy eRn MD [address] [place] [address] PCP - General Family Practice 01/25/15 documented as of this encounter
--- OUTSIDE RECORDS SUMMARY | 2024-11-14 18:59 | XMS_ITS | Encounter Summary ---
Author Organization [facility] Address [address] [place] [address] Care Team Providers Care Carpet Finishing Supervisor Name Role Phone Randy Ren MD Primary Care Provider [phone] Encounter Details Date Type Department Care Team (Latest Contact Info) Description 10/06/2003 Outpatient Historical [address] [phone] Alondra Mehta MD [address] [place] [address], [address] TRACHEA/BRONCHUS DIS NEC (Primary Dx); ACUTE BRONCHITIS Social History Tobacco Use Types Packs/Day Years Used Date Smoking Tobacco: Never Assessed Comments Unknown Sex and Gender Information Value Date Recorded Sex Assigned at Not on file Legal Sex Female 6:05 AM FILTER TANK OPERATOR Gender Identity Not on file Sexual Orientation Not on file documented as of this encounter Plan of Treatment Not on file documented as of this encounter Visit Diagnoses Diagnosis Other diseases of trachea and bronchus, not elsewhere classified- Primary Acute bronchitis documented in this encounter Additional Health Concerns Infection Onset Date Last Indicated Resolved Time MRSA Comment:Resolved 07/30/2018, Infection Prevention Nares 12/15/15 12/16/2015 12/16/2015 07/30/2018 10:47 AM FILTER TANK OPERATOR R/O COVID-19 03/01/2020 03/01/2020 03/03/2020 1:01 AM CDT documented as of this encounter Care Teams Carpet Finishing Supervisor Relationship Specialty Start Date End Date Randy Ren MD [address] [place] [address] PCP - General Family Practice 01/25/15 documented as of this encounter
--- OUTSIDE RECORDS SUMMARY | 2024-11-14 18:59 | XMS_ITS | Encounter Summary ---
Author Organization [facility] Address [address] [place] [address] Care Team Providers Care Pharmacogeneticist Name Role Phone Randy Ren MD Primary Care Provider [phone] Encounter Details Date Type Department Care Team (Latest Contact Info) Description 08/25/2002 Outpatient Historical [facility] Gastroenterology- [address] [place] [phone] Nehemiah Rodríguez MD [address] [facility] [address] [place] [address] ESOPHAGEAL REFLUX (Primary Dx) Social History Tobacco Use Types Packs/Day Years Used Date Smoking Tobacco: Never Assessed Comments Unknown Sex and Gender Information Value Date Recorded Sex Assigned at Not on file Legal Sex Female 6:05 AM SQL DATABASE DEVELOPER Gender Identity Not on file Sexual Orientation Not on file documented as of this encounter Plan of Treatment Not on file documented as of this encounter Visit Diagnoses Diagnosis Esophageal reflux- Primary documented in this encounter Additional Health Concerns Infection Onset Date Last Indicated Resolved Time MRSA Comment:Resolved 07/30/2018, Infection Prevention Nares 12/15/15 12/16/2015 12/16/2015 07/30/2018 10:47 AM SQL DATABASE DEVELOPER R/O COVID-19 03/01/2020 03/01/2020 03/03/2020 1:01 AM CDT documented as of this encounter Care Teams Pharmacogeneticist Relationship Specialty Start Date End Date Randy Ren MD [address] [place] [address] PCP - General Family Practice 01/25/15 documented as of this encounter
--- OUTSIDE RECORDS SUMMARY | 2024-11-14 18:59 | XMS_ITS | Encounter Summary ---
Author Organization [facility] Address [address] [place] [address] Care Team Providers Care Press Machine Feeder Name Role Phone Andrea Ren DO Primary Care Provider [phone] Reason for Visit * Reason Comments Information Encounter Details Date Type Department Care Team (Late st Contact Info) Description 11/02/2024 Telephone [facility] Medicine [place] [address] [place] [address] Andrea Ren DO [address] [address] Information Social History Tobacco Use Types Packs/Day Years Used Date Smoking Tobacco: Former Cigarettes Q uit: 09/08/1988 Passive Smoke Exposure: Past Smokeless Tobacco: Never Alcohol Use Standard Drinks/Week Comments No 0 (1 standard drink = 0.6 oz pur e alcohol) Utility Needs Answer Date Recorded In the past 12 months has [employer], gas, oil, or water [employer] threatened to shut off services in your [...] often do you attend chur ch or confucianism services? 1 to 4 times per year 11/01/2023 Do you belong to any clubs o r organizations such as yazidism groups, unions, fraternal or athletic groups, or [...] on file Legal Sex Female 2:33 AM COMMUNITY NURSE Gender Identity Not on file Sexual Orientation Not on file documented as of this encounter Miscellaneous Notes * Telephone Encounter - Yanna Kennedy - 11/02/2024 8:58 AM CDT HFU VV on 11/04/24. Not 11/03/24. * Telephone Encounter - Yanna Kennedy - 11/02/2024 8:56 AM CDT Spoke with pt and rescheduled sooner visit for VV HFU Anum Samayoa on 11/03/24. Pt will download [employer] yajaira and make sure settings are on for audio/visual. Pt will be ready before time requested. No further questions. * Telephone Encounter - Kerry Roblero - 11/02/2024 8:32 AM CDT Copied from [facility] #[id number]. Topic: Established Patient Care >> November 02, 2024 8:29 AM Kerry Aguiar wrote: Is the patient established with a [facility] provider? Yes, select appropriate option in Discharge Facility SmartList Caller Name: Nilda with [facility] Callback Number: [phone] Call Notes: HOSP FOLLOW UP d/s 11/02- admitted for sepsis, pneumonia Patient is Rising Risk Where was the patient discharged from? Hospital Is there availability to schedule the patient within 5 calendar days of discharge? No, in person appointment not available or call came after 5 days of discharge documented in this encounter Plan of Treatment Upcoming Encounters Date Type Department Care Team (Late st Contact Info) Description 11/25/2024 11:40 AM CDT Office Visit [address] [phone] Andrea Ren, DO [address] [place] [phone] 12/02/2024 3:00 PM CDT Office Visit [facility] Headache Management [place] [address] [place] [address] Nataliia Gallegos, [facility] [address] [place] [address] 12/17/2024 11:00 AM CDT Appointment [facility] Pulmonary Function Testing [address] [place] [address] [place] [address] MelissaOvi westbrookiel, DO [address] [place] [address] 12/17/2024 1:10 PM CDT Office Visit [facility] Medicine [place] [address] [place] [phone] Danita Smith, [facility] [address] [place] [address] 02/03/2025 10:00 AM CDT Office Visit [facility] Urology- [place] [address]tr[address], 3rd [place] [address] Kylie Villafuerte NP [address] [facility] [address] [place] [address] 03/26/2025 11:10 AM CDT Appointment [facility] Breast [place] [address] [facility] [address] [place] [address] Melissa Anand MD [address] [place] [phone] 03/30/2025 11:00 AM CDT Office Visit [facility] Gastroenterology- [place] [address] [place] [address] Corin De Leon NP [address] [facility] [address] [place] [address] 05/14/2025 11:20 AM COMMUNITY NURSE Office Visit [facility] [address] [place] [address] Ora De Anda, [place] [address] [place] [address] 07/12/2025 10:45 AM COMMUNITY NURSE Office Visit [facility] Sleep Center [address] [address] Dorys Cano, INTEGRATED CIRCUIT FABRICATOR [address] [address] 08/25/2025 8:00 AM CDT Hospital Encounter [facility] Endoscopy [address] [place] [address] Aayush Jc MD [address] [address] 08/25/2025 8:00 AM CDT - 08/25/2025 8:20 AM CDT Surgery [facility] Endoscopy [address] [place] [address] Aayush Jc MD [address] [facility] [address] [place] [address] COLONOSCOPY 11/11/2025 10:50 AM CDT Office Visit [facility] Gopal Da Silva [address] [place] [address] Melissa Anand MD [address] [place] [address] Scheduled Procedures Name Priority Associated [...] documented as of this encounter Care Teams Press Machine Feeder Relationship Specialty Start Date End Date Andrea eRn DO [address] [place] [address] PCP - General Family Practice 08/03/21 documented as of this encounter
--- OUTSIDE RECORDS SUMMARY | 2024-11-14 18:59 | XMS_ITS | Encounter Summary ---
Author Organization [facility] Address [address] [place] [address] Care Team Providers Care Rehabilitator Name Role Phone MelissaAndrea westbrook Primary Care Provider [phone] Encounter Details Date Type Department Care Team [...] Recorded In the past 12 months has [employer] gas, oil, or water [employer] threatened to shut off services in your [...] How often do you attend chur or jew services? 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 LEADER Gender Identity Not on file Sexual Orientation Not on file documented as of this encounter Plan of Treatment Upcoming Encounters Date Type Department Care Team (Late st Contact Info) Description 11/25/2024 11:40 AM CDT Office Visit [facility] [address] [address] Andrea Ren, [address] [place] [phone] 12/02/2024 3:00 PM CDT Office Visit [facility] Headache Management [place] [address] [place] [address] Nataliia Gallegos, [facility] [address] [facility] [address] [place] [address] 12/17/2024 11:00 AM CDT Appointment [facility] Pulmonary Function Testing [address] [place] [address] Andrea Ren, DO [address] [place] [address] 12/17/2024 1:10 PM CDT Office Visit [facility] [address] [address] Danita Smith, [facility] [address] [place] [address] 02/03/2025 10:00 AM CDT Office Visit [facility] Urology- [place] [address] Entrance B, 3rd [place] [address] Kylie Villafuerte NP [address] [facility] [address] [place] [address] 03/26/2025 11:10 AM CDT Appointment [facility] Breast [place] [address] [place] [phone] Melissa Anand MD [address] [place] [address] 03/30/2025 11:00 AM CDT Office Visit [facility] Gastroenterology- [place] [address] [place] [address] Corin De Leon, THERESA [address] [place] [address] 05/14/2025 11:20 AM CUSTOMER LEADER Office Visit [facility] [address] [place] [address] Ora De Anda PA [address] [facility] [address] [place] [address] 07/12/2025 10:45 AM CUSTOMER LEADER Office Visit [facility] Sleep [place] [address] [facility] [address] [place] [address] Dorys Cano, [facility] [address] [facility] [address] [place] [address] 08/25/2025 8:00 AM CDT Hospital Encounter [facility] Endoscopy [address] [place] [address] Aayush Jc MD [address] [facility] [address] [place] [address] 08/25/2025 8:00 AM CDT - 08/25/2025 8:20 AM CDT Surgery [facility] Endoscopy [address] [place] [address] Aayush Jc MD [address] [place] [address] COLONOSCOPY 11/11/2025 10:50 AM CDT Office Visit [facility] Gopal Da Silva [address] [place] [address] Melissa Anand MD [address] [place] [address] Scheduled Procedures Name Priority Associated [...] documented as of this encounter Care Teams Rehabilitator Relationship Specialty Start Date End Date Andrea Ren DO [address] [place] [address] PCP - General Family Practice 08/03/21 documented as of this encounter
--- OUTSIDE RECORDS SUMMARY | 2024-11-14 18:59 | XMS_ITS | Encounter Summary ---
Author Organization [facility] Address [address] [place] [address] Care Team Providers Care Hospital Carrier Name Role Phone Randy Ren MD Primary Care Provider [phone] Encounter Details Date Type Department Care Team (Late st Contact Info) Description 10/09/2003 Emergency [facility] Emergency Department [address] [place] [address] Xavier Sarkar, Arley Wyatt DO NO ADDRESS ON FILE BRONCHITIS NOS (Primary Dx) Social History Tobacco Use Types Packs/Day Years Used Date Smoking Tobacco: Never Assessed Comments Unknown Sex and Gender Information Value Date Recorded Sex Assigned at Not on file Legal Sex Female 6:05 AM CAPTAIN CANNERY TENDER Gender Identity Not on file Sexual Orientation Not on file documented as of this encounter Plan of Treatment Not on file documented as of this encounter Visit Diagnoses Diagnosis Bronchitis, not specified as acute or chronic- Primary documented in this encounter Additional Health Concerns Infection Onset Date Last Indicated Resolved Time MRSA Comment:Resolved 07/30/2018, Infection Prevention Nares 12/15/15 12/16/2015 12/16/2015 07/30/2018 10:47 AM CAPTAIN CANNERY TENDER R/O COVID-19 03/01/2020 03/01/2020 03/03/2020 1:01 AM CDT documented as of this encounter Care Teams Hospital Carrier Relationship Specialty Start Date End Date Randy Ren MD [address] [address] PCP - General Family Practice 01/25/15 documented as of this encounter
--- OUTSIDE RECORDS SUMMARY | 2024-11-14 18:59 | XMS_ITS | Encounter Summary ---
Author Organization [facility] Address [address] [place] [address] Care Team Providers Care Seam Press Operator Name Role Phone Andrea Ren Primary Care Provider [phone] Encounter Details Date Type Department Care Team (Late st Contact Info) Description 10/09/2024 Results Follow-Up [facility]ology- [place] [address] [facility] [address] [place] [address] Corin De Leon NP [address] [facility] [address] [place] [address] VITAMIN B12 LEVEL, IRON, TIBC, AND PERCENT SATURATION, FERRITIN Social History Tobacco Use Types Packs/Day Years Used Date Smoking Tobacco: Former Cigarettes Q uit: 09/08/1988 Passive Smoke Exposure: Past Smokeless Tobacco: Never Alcohol Use Standard Drinks/Week Comments No 0 (1 standard drink = 0.6 oz pur e alcohol) Utility Needs Answer Date Recorded In the past 12 months has [employer], gas, oil, or water [employer] threatened to shut off services in your [...] often do you attend chur ch or restorationist services? 1 to 4 times per year 11/01/2023 Do you belong to any clubs o r organizations such as tenriism groups, unions, fraternal or athletic groups, or [...] who hurts you emotionally and/or physically? 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 [address] [place] [address] 12/17/2024 11:00 AM CDT Appointment [facility] Pulmonary Function Testing [address] [place] [address] Andrea Ren DO [address] [place] [address] 12/17/2024 1:10 PM CDT Office Visit [facility] [address] [place] [address] Danita Smith [facility] [address] [place] [address] 02/03/2025 10:00 AM CDT Office Visit [facility] Urology- [place] [address] Entrance [address], 3rd [place] [address] Kylie Villafuerte NP [address] [place] [address] 03/26/2025 11:10 AM CDT Appointment [facility] [address] [place] [address] Melissa Anand MD [address] [place] [address] 03/30/2025 11:00 AM CDT Office Visit [facility] Gastroenterology- [place] [address] [place] [address] Corin De Leon NP [address] [facility] [address] [place] [address] 05/14/2025 11:20 AM DIRT CONTRACTOR Office Visit [facility] [address] [place] [address] Ora De Anda PA [address] [place] [address] 07/12/2025 10:45 AM DIRT CONTRACTOR Office Visit [facility] [address] [facility] [address] [place] [address] Dorys Cano, RADIO ANTENNA INSTALLER [address] [facility] [address] [place] [address] 08/25/2025 8:00 AM CDT Hospital Encounter [facility] Endoscopy [address] [place] [address] Aayush Jc MD [address] [facility] [address] [place] [address] 08/25/2025 8:00 AM CDT - 08/25/2025 8:20 AM CDT Surgery [facility] Endoscopy [address] [place] [address] Aayush Jc MD [address] [place] [address] COLONOSCOPY 11/11/2025 10:50 AM CDT Office Visit [facility] KLAUSRobertoAshu James Kennedy [address] [place] [address] Melissa Anand MD [address] [place] [address] Scheduled Procedures Name Priority Associated Diagnoses Date/Ti me COLONOSCOPY Iron deficiency anemia, unspecified iron deficiency anemia type Chronic idiopathic constipation Colon cancer screening 08/25/2025 8:00 AM CDT documented as of this encounter Visit Diagnoses Not on filedocumented in this encounter Additional Health Concerns Infection Onset Date Last Indicated Resolved Time R/O COVID-19 10/27/2024 10/27/2024 10/27/2024 6:45 PM CDT Assessment Noted Time PHQ-9 Depression Total Score: 6 10/09/19 25 3:00 PM CDT documented as of this encounter Care Teams Seam Press Operator Relationship Specialty Start Date End Date Andrea Ren DO [address] [place] [address] PCP - General Family Practice 08/03/21 documented as of this encounter
--- OUTSIDE RECORDS SUMMARY | 2024-11-14 18:59 | XMS_ITS | Encounter Summary ---
Author Organization [facility] Address [address] [place] [address] Care Team Providers Care Med Surg Nurse Name Role Phone Randy Ren MD Primary Care Provider [phone] Encounter Details Date Type Department Care Team (Latest Contact Info) Description 09/09/2015 Ancillary Orders [facility] [address] [facility] [address] [place] [address] Randy Ren MD [address] [place] [address] Inconclusive mammography (Primary Dx) Social History Tobacco Use Types Packs/Day Years Used Date Smoking Tobacco: Former Cigarettes 0 09/09/1987 - 09/08/1988 Smokeless Tobacco: Never Alcohol Use Standard Drinks/Week Comments No 0 (1 standard drink = 0.6 oz pur e alcohol) Comments No Sex and Gender Information Value Date Recorded Sex Assigned at Not on file Legal Sex Female 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 Gender Identity Not on file Sexual Orientation Not on file Occupation Industry Job Start Date Job End Date Not on file Not on file Not on file Not on file documented as of this encounter Plan of Treatment Not on file documented as of this encounter Visit Diagnoses Diagnosis Inconclusive mammography- Primary Inconclusive mammogram documented in this encounter Additional Health Concerns Infection Onset Date Last Indicated Resolved Time MRSA Comment:Resolved 07/30/2018, Infection Prevention Nares 12/15/15 12/16/2015 12/16/2015 07/30/2018 10:47 AM PLASTIC WORKER R/O COVID-19 03/01/2020 03/01/2020 03/03/2020 1:01 AM CDT documented as of this encounter Care Teams Med Surg Nurse Relationship Specialty Start Date End Date Randy Ren MD [address] [place] [address] PCP - General Family Practice 01/25/15 documented as of this encounter
--- OUTSIDE RECORDS SUMMARY | 2024-11-14 18:59 | XMS_ITS | Clinical Summary ---
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 Medications magnesium oxide 250 mg Tablet Take 250 mg by mouth. Active acetaminophen (TYLENOL) 500 mg tablet Take 500 mg by mouth every 6 hours as needed. Active venlafaxine (EFFEXOR XR) 150 mg Extended Release 24 hour capsuleIndicatio ns:3 caps by mouth every evening Take 75 mg by mouth daily . 2 04/21/20 18 Active TECHLITE PEN NEEDLE 31 gauge x 1/4 Needle USE WITH INSULIN PENS TO INJECT INSULINS 3 06/24/19 19 Active polyethylene glycol 3350 (MIRALAX) 17 gram/dose Powder Take 1 SCOOP (17 Grams) by mouth 2 times daily Dissolve in 8 ounces of fluid and drink entire liquid. 527 Gram 12/12/19 19 Active cholecalciferol 50,000 unit CapsuleIndicatio ns:once at begging of every month Take 1 Capsule (50,000 Units) by mouth every 7 days. 12 Capsule 01/07/20 Active diclofenac sodium (VOLTAREN) 1 % gel Apply 2 Grams to affected area 4 times daily. 300 Gram 1 02/05/20 Active hydrOXYzine pamoate (VISTARIL) 50 mg capsule Take 1 capsule by mouth 4 times daily as needed for anxiety. 120 Capsule 06/05/20 Active hydrOXYzine HCl (ATARAX) 25 mg tablet 0 04/23/20 Active NATROBA 0.9 % Suspension 2 05/11/20 Active ibuprofen (MOTRIN) 800 mg tablet Take 1 Tablet (800 mg) by mouth every 6 hours as needed for Pain, Mild. 60 Tablet 1 08/06/19 Active buPROPion HCL (WELLBUTRIN SR) 100 mg Sustained Release 12 hour tablet Take 100 mg by mouth daily. 08/06/19 Active Stool Softener 100 mg capsule 2 CAPSULES BY MOUTH TWICE A DAY NEEDED FOR CONSTIPATION 120 Capsule 11/18/19 Active nitroglycerin (NITROSTAT) 0.4 mg Tablet, SublingualIndica tions:Atypical chest pain PLACE 1 TABLET UNDER TONGUE EVERY 5 MINUTES NEEDED FOR CHEST PAIN 25 Tablet 3 12/17/19 Active Insulin [place], Disposable, (TechLITE Pen Needle) 31 gauge x 1/4 Needle Use with insulin pens to inject insulins. E11.65 100 Each 6 12/14/19 20 Active bi-level machineIndicatio ns:VIVIAN (obstructive sleep apnea) BiLevel 12 and 8 CWPwith heated humidifier. Length of Need: 99 mo.Cpap/Bipap supplies: Full face mask and headgear A7030/A7035 1/6mo, mask only A7030 1/3mo, cushions A7031 1/mo, Tubing non heated A7037 1/3mo, water chamber A7046 1/6mo, filter disposable filters A7038 2/mo, reusable filters A7039 1/6mo. DX: VIVIAN (G47.33) 1 Each 01/05/20 20 Active ARIPiprazole (ABILIFY) 15 mg tablet 10/28/19 Active EPINEPHrine (EpiPen) 0.3 mg/0.3 mL Auto-Injector Inject 0.3 mL (0.3 mg) by intramuscular injection 1 time daily as needed for Anaphylaxis. 1 Each 01/29/20 20 Active ondansetron (Zofran ODT) 8 mg Tablet, Rapid DissolveIndicati ons:Nausea Dissolve 1 tablet on top of tongue then swallow with saliva every 8 hours as needed for nausea or vomiting 30 Tablet 03/01/20 20 Active loperamide (IMODIUM) 2 mg capsuleIndicatio ns:Acute diarrhea Take 2 capsules after your next loose stool. The 1 capsule after each loose stool for the next 2 days. Maximun of 8 capsules a day. 30 Capsule 03/01/20 20 Active psyllium (FIBER-CAP) 0.52 gram CapsuleIndicatio ns:Altered bowel habits Take 2 Capsules by mouth 2 times daily. 160 Capsule 3 03/21/20 20 Active rOPINIRole (REQUIP) 1 mg tablet TAKE 1 & 1/2 TO 2 TABLETS BY MOUTH 1 TO 2 HOURS BEFORE BEDTIME. 60 Tablet 11 06/06/20 20 Active Blood-Glucose Meter Kit Use to check sugars BID. e11.9 1 Each 06/15/20 20 Active blood sugar diagnostic (Blood Glucose Test) Strip Use to check sugars BID. e11.9 100 Each 3 06/15/20 20 Active lancets Use to check sugars BID. e11.9 100 Each 3 06/15/20 20 Active cetirizine (ZyrTEC) 10 mg tablet TAKE 1 TABLET BY MOUTH DAILY 30 Tablet 5 08/10/19 21 Active Victoza 3-Abhishek 0.6 mg/0.1 mL (18 mg/3 mL)Indications:T ype 2 diabetes mellitus with hyperglycemia, with long-term current use of insulin ([facility]) Inject 1.8 mg by subcutaneous injection daily. 9 mL 3 08/09/19 21 Active famotidine (PEPCID) 40 mg tabletIndication s:Gastroesophage al reflux disease without esophagitis,Epig astric abdominal pain Take 1 Tablet (40 mg) by mouth daily at bedtime. 90 Tablet 3 08/19/19 21 Active azelastine (ASTELIN) 137 mcg/actuation nasal spray Administer 2 Sprays in each nostril 2 times daily. Angle bottle tip straight back and slightly outward, away from septum. 30 mL 6 08/25/19 21 Active montelukast (SINGULAIR) 10 mg tablet Take 1 Tablet (10 mg) by mouth daily at bedtime. 90 Tablet 3 09/08/19 21 Active amLODIPine (NORVASC) 10 mg tablet TAKE 1 TABLET (10 MG) BY MOUTH DAILY 90 Tablet 3 09/15/19 Active metFORMIN (GLUCOPHAGE) 1,000 mg tablet Take 1 Tablet (1,000 mg) by mouth 2 times daily with meals. 180 Tablet 3 09/15/19 Active sucralfate (CARAFATE) 1 gram tablet TAKE 1 TABLET BY MOUTH 4 TIMES A DAY BEFORE MEALS AND AT BEDTIME. 120 Tablet 11 09/21/19 Active fremanezumab-vfr m (AJOVY) 225 mg/1.5 mL Auto-Injector Inject 1.5 mL (225 mg) by subcutaneous injection every 30 days. 1.5 mL 10/04/19 Active fluticasone propionate (FLONASE) 50 mcg/spray [place], Suspension nasal inhalerIndicatio ns:Seasonal allergic rhinitis due to pollen Administer 2 Sprays in each nostril daily. 16 Gram 6 10/05/19 Active baclofen (LIORESAL) 10 mg tablet TAKE 1/2 TAB (5MG) BY MOUTH TWICE A DAY 30 Tablet 1 10/11/19 21 Active atorvastatin (LIPITOR) 40 mg tabletIndication s:Type 2 diabetes mellitus with hyperglycemia, with long-term current use of insulin (CMS/HCC) Take 1 Tablet (40 mg) by mouth daily at bedtime. 30 Tablet 3 10/11/19 Active gabapentin (NEURONTIN) 300 mg capsule Take 2 Capsules (600 mg) by mouth 3 times daily. 180 Capsule 2 10/20/19 Active lisinopriL (PRINIVIL) 5 mg tablet Take 1 Tablet (5 mg) by mouth daily. 30 Tablet 3 11/12/19 Active glimepiride (AMARYL) 4 mg tabletIndication s:Type 2 diabetes mellitus with hyperglycemia, with long-term current use of insulin (CMS/HCC) TAKE 1 TABLET BY MOUTH TWICE A DAY WITH MEALS 60 Tablet 1 11/12/19 21 Active pantoprazole (PROTONIX) 40 mg Tablet, Delayed Release (E.C.) Take 1 Tablet (40 mg) by mouth 2 times daily. 60 Tablet 3 11/16/19 21 Active linaCLOtide (Linzess) 290 mcg capsuleIndicatio ns:Irritable bowel syndrome without diarrhea,Other constipation Take 1 Capsule (290 mcg) by mouth daily before breakfast. 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 60 Capsule 2 12/13/19 21 Active Active Problems Problem Noted Date Diagnosed Date Primary osteoarthritis of right shoulder 020 H/O fibromyalgia 08/19/2018 Chronic left shoulder pain 07/07/2018 Calcific tendinitis of left shoulder 05/19/2018 Fatigue 03/24/2018 Family history of breast cancer 02/10/2018 Family history of ovarian cancer 02/10/2018 Simple chronic bronchitis 01/02/2018 Mixed incontinence urge and stress 01/02/2018 Emotional tension headache 07/10/2017 Balance problem 05/22/2017 Has a tremor 05/22/2017 Memory loss of unknown cause 05/22/2017 Rectocele 01/31/2017 Hepatic enlargement 01/14/2017 Hypovitaminosis D 01/10/2017 Iron deficiency anemia 09/27/2016 Perennial allergic rhinitis 08/06/2016 Lumbar disc herniation 01/03/2016 Clostridium difficile infection 12/15/2015 Insomnia due to medical condition 09/19/2015 Migraine without aura and wi thout status migrainosus, not intractable 07/12/2015 Right-sided low back pain with right-sided sciat ica 07/12/2015 Precordial chest pain 06/20/2015 Right-sided low back pain without sciatica 04/15 Vertigo 03/23/2015 Diabetic polyneuropathy asso ciated with type 2 diabetes mellitus 03/17/2015 Constipation 03/17/2015 Irritable bowel syndrome without diarrhea 2014 S/P FESS (functional endoscopic sinus surgery) 0 11/25/2014 Nasal turbinate hypertrophy (s/p submucous resection with outfracture) 11/25/2014 S/P nasal septoplasty 11/25/2014 Essential hypertension 01/05/2014 Type 2 diabetes mellitus wit h hyperglycemia, with long-term current use of insulin 01/05/2014 GERD (gastroesophageal reflux disease) 4 Lymphedema of leg 01/05/2014 Morbid obesity with BMI of 50.0-59.9, adult 12/16 Heat intolerance 01/05/2014 Restless legs syndrome (RLS) 07/13/2013 VIVIAN on CPAP 01/06/2013 Resolved Problems Problem Noted Date Diagnosed Date Resolved Date Right-sided low back pain wi th right-sided sciatica 07/12/2015 03/26/2018 Chronic daily headache 04/13/201504/08 Menorrhagia with irregular cycle 02/18/2015 07/26/2015 Irregular menses 12/13/2014 05/31/2015 Chronic ethmoidal sinusitis 11/25/2014 07/07/2019 Chronic maxillary sinusitis 11/25/2014 07/07/2019 Chronic frontal sinusitis 11/25/2014 Chronic sphenoidal sinusitis 11/25/2014 07/07/2019 Urinary incontinence 01/05/2014 016 Immunizations Immunization Administration Dates Next Due (ADACEL/BOOSTRIX)(10 YR UP) TDAP VACCINE, 0.5ML, IM 04/29/2015 Hepatitis A Vaccine 07/23/2006,02/19/2006,2005 Hepatitis B Vaccine 07/23/2006,02/19/2006,2005 INFLUENZA VACCINE QUADRIVALE NT 3 YR UP PF IM 03/27/2019,05/02/2018,03/29/2017,2015 INFLUENZA VACCINE QUADRIVALE NT 6 MOS UP PF IM 03/24/2020 Influenza Seasonal Unspecifi ed Formulation IM 04/07/2014 Influenza Vaccine Quad Split 3+ Yrs Im 04/29/2015 Influenza Vaccine Split 3+ Yrs PF IM 09/14/2010 Family History Medical History Relation Name Comments Healthy Brother Other Daughter Lung Cancer Father Cancer Maternal Uncle Pancreatic CA Heart Disease Mother High Cholesterol Mother Hypertension Mother Other Mother Stroke Mother Thyroid Disease Mother Breast Cancer Paternal Cousin 1 positive risk, see media tab Ovarian Cancer Paternal Cousin 1 Breast Cancer Paternal Cousin 2 positive response Thyroid Disease Sister 1 Other Sister 2 Respiratory Disease Sister 2 Healthy Son 1 Healthy Son 2 Colon Cancer Neg Hx Relation Name Status Comments Brother Alive Daughter Alive Father Maternal Uncle Mother Alive Paternal Cousin 1 Paternal Cousin 2 Sister 1 Alive Sister 2 Alive Son 1 Alive Son 2 Alive Social History Tobacco Use Types Packs/Day Years Used Date Smoking Tobacco: Former Cigarettes 1 2 0 09/08/1986 - 09/08/1988 Smokeless Tobacco: Never Tobacco Cessation:Counseling Given: Yes Alcohol Use Standard Drinks/Week Comments No 0 (1 standard drink = 0.6 oz pur e alcohol) Feeling Safe Answer Date Recorded Within the last year, have y ou been afraid of your partner or ex-partner? No 09/01/2020 Within the last year, have y ou been humiliated or emotionally abused in other ways by your partner or ex-partner? No Within the last year, have y ou been kicked, hit, slapped, or otherwise physically hurt by your partner or ex-partner? No 09/01/2020 Within the last year, have y ou been raped or forced to have any kind of sexual activity by your partner or ex-partner? No 09/01/2020 Social Connections Answer Date Recorded In a typical week, how many times do you talk on the telephone with family, friends, or neighbors? Three times a week 09/02/19 How often do you get togethe r with friends or relatives? Never 09/01/2020 How often do you attend chur or faith services? Never 09/01/2020 Do you belong to any clubs o r organizations such as anabaptist groups, unions, fraternal or athletic groups, or school groups? No 09/01/2020 How often do you attend meet ings of the clubs or organizations you belong to? Never 09/01/2020 Are you , , di vorced, , never , or living with a partner? 09/01/2020 Financial Resource Strain Answer Date R ecorded How hard is it for you to pa y for the very basics like food, housing, medical care, and heating? Very hard 09/01/2020 Food Insecurity Answer Date Recorded In the past 12 months, have you worried that your food would run out before you had money to buy more? Sometimes true 2020 In the past 12 months, did y ou run out of food and didn't have money to buy more? Sometimes true 09/01/2020 Transportation Needs Answer Date Record ed In the past 12 months, has l ack of transportation kept you from medical appointments or from getting medications? No 08/15 In the past 12 months, has l ack of transportation kept you from meetings, work, or from getting things needed for daily living? 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 Gender Identity Not on file Sexual Orientation Not on file Occupation Industry Job Start Date Job End Date Not on file Not on file Not on file Not on file Last Filed Vital Signs Vital Sign Reading Time Taken Comments Blood Pressure 132/76 11/25/2020 1:03 PM CDT Pulse 84 09/09/2020 9:59 AM CDT Temperature 36.3 C (97.4 F) 03/01/2020 4:07 PM CDT Respiratory Rate 16 03/01/2020 4:07 PM CDT Oxygen Saturation 97% 04/26/2020 2:39 PM DIRECTOR UNDERWRITER SALES Inhaled Oxygen Concentration - - Weight 147.4 kg (325 lb) 11/25/2020 1:03 PM CDT Height 167.6 cm (5' 6 ) 11/25/2020 1:03 PM CDT Body Mass Index 52.46 11/25/2020 1:03 PM CDT Plan of Treatment Health Maintenance Due Date Last Done Comments HEPATITIS B VACCINES (1 of 3 - 19+ 3-dose series) 1989 07/23/2006, 02/19/2006, 01/18/2006 FIT-DNA Q 3 years 11/21/2015 Flex Sig/CT Colonography Q 5 years 11/21/2015 FIT/FOBT Q 1 year 07/31/2018 07/31/2017 DIABETES ANNUAL FOOT EXAM 10/28/20192018, 07/28/2018, 05/27/2018, Additional history exists ZOSTER VACCINE (1 of 2) 2020 LDL CHOLESTEROL ANNUAL 04/18/2021 0, 07/28/2019, 07/07/2019, Additional history exists DIABETES HBA1C Q 6 MONTHS 06/23/20212020, 09/01/2020, 02/02/2020, Additional history exists DIABETES MICROALBUMIN ANNUAL SCREEN 09/01/2021 09/01/2020, 07/28/2019, 07/07/2018, Additional history exists BREAST CANCER SCREENING 03/20/2022 03/20/20 21, 01/28/2020, 11/06/2018, Additional history exists INFLUENZA VACCINE (#1) 2024 0, 03/27/2019, 05/02/2018, Additional history exists DTAP/TDAP/TD VACCINES (2 - T d or Tdap) 04/29/2025 04/29/2015 DIABETES ANNUAL RETINAL EXAM 05/06/2025, 05/02/2023, 05/01/2022, Additional history exists Preventative Visit-Managed Medicaid 07/03/2025 07/02/2024, 09/04/2022, 09/01/2020, Additional history exists COLORECTAL SCREENING 06/16/2034 06/16/2024, 11/21/2018, 11/21/2018, Additional history exists Colorectal Cancer Screening 06/16/2034 Medical Devices Implanted Type Area Overseer Kosher Kitchen Device Identifier Shelf Expiration Date Model / Serial / Lot Hemostatic Gelfoam Spng 12-7mm [id number] - Csc - Sna Implanted:Qty: 1 on 01/03/2016 by Thiago Teran MD at [facility] Hemostatic Right: Spine Lumbar PFIZER- PHARM 04/16/2018 [id number] / NA / [id number] Hemostatic Gelfoam Powder 1gm [id number] - Sna Implanted:Qty: 1 on 01/03/2016 by Thiago Teran MD at [facility] Hemostatic Right: Spine Lumbar PFIZER- PHARM 06/16/2018 [id number] / NA / [id number] Procedures Procedure Name Priority Date/Time Associated Diagnosis Comments HEMOGLOBIN A1C Routine 12/21/2020 12:03 PM CDT Type 2 diabetes mellitus treated with insulin ([facility]) MICROALBUMIN/CREATIN INE RATIO, RANDOM UR Routine 09/01/2020 1:00 PM CDT Type 2 diabetes mellitus treated with insulin ([facility]) Stage 3a chronic kidney disease ([facility]) Hypovitaminosis D LIPID PANEL Routine 04/18/2020 MAMMO 3D JAYLON SCREEN BILAT W OR WO CAD Routine 01/28/2020 12:14 PM CDT Encounter for screening mammogram for malignant neoplasm of breast COLONOSCOPY REPORT 11/21/2018 9: 21 AM CDT POC OCCULT BLOOD UP TO 3 CARDS Routine 07/31/2017 11:51 AM DIRECTOR UNDERWRITER SALES Screening for colon cancer from Last 3 Months or Most Recently Relevant to Health Maintenance Results * (ABNORMAL) HEMOGLOBIN A1C (12/21/2020 12:03 PM CDT) HEMOGLOBIN A1C 7.7(H) <5.7 % of total Hgb [employer] [place] Comment: For someone without known diabetes, a hemoglobin A1c value of 6.5% or greater indicates that they may have diabetes and this should be confirmed with a follow-up test. For someone with known diabetes, a value <7% indicates that their diabetes is well controlled and a value greater than or equal to 7% indicates suboptimal control. A1c targets should be individualized based on duration of diabetes, age, comorbid conditions, and other considerations. Currently, no consensus exists regarding use of hemoglobin A1c for diagnosis of diabetes for children. FASTING:NO FASTING: NO Test [facility]formed at: [facility] [address] [place] [address] Antwan Guadalupe D.O., MPH Blood 12/21/2020 12:0 3 PM CDT 12/21/2020 12:05 PM CDT us Ora HUNTER CHEMISTRY ORDERABLES Final Re sult [facility] [employer] [place] [address] [place] [address] * (ABNORMAL) MICROALBUMIN/CREATININE RATIO, RANDOM UR (09/01/2020 1:00 PM CDT) MICROALBUMIN, URINE 6.2 No Reference Range mg/dL 09/01/2020 2:14 PM CDT [facility] CREATININE, URINE 236.1(H) 29.0 - 226.0 mg/dL 09/01/2020 2:14 PM CDT [facility] Comment:Reference Range vari es with fluid intake and diet. MICROALBUMIN/ CREAT RATIO, UR 26.3(H) <25.0 mg/g 09/01/2020 2:14 PM CDT [facility] Urine URINE SPECIMEN OBTAINED BY CLEAN CATCH PROCEDURE / Unknown Collection / Unknown 09/01/2020 1:00 PM CDT 09/01/2020 1:11 PM CDT Narrative [facility] - 09/01/2020 2:14 PM CDT Condition Microalbumin/Creat ratio Normal Males <17 Normal Females <25 Microalbuminuria Males 17-299 Microalbuminuria Females 25-299 Overt proteinuria >=300 Ora HUNTER URINE ORDERABLES Final Result [facility] CLIA# [id number] [place] [address] * LIPID PANEL (04/18/2020) ABSTRACTED CHOLESTEROL 122 EXTERNAL LAB ABSTRACTED TRIGLYCERIDE 142 EXTERNAL LAB ABSTRACTED HDL 35 EXTERNAL LAB ABSTRACTED LDL CALCULATED 59 EXTERNAL LAB CHOLESTEROL EXTERNAL LAB TRIGLYCERIDE EXTERNAL LAB HDL EXTERNAL LAB LDL CALCULATED EXTERNAL LAB Blood 04/18/2020 Abstract Spg Provider CHEMISTRY ORDERABLES Final Result Performing Organization Address [facility] Co de Phone Number EXTERNAL LAB * MAMMO SCRN BILAT 3D JAYLON W OR WO CAD (01/28/2020 12:14 PM CDT) Anatomical Region Laterality Modality Breast Bilateral Mammography Narrative 01/29/2020 10:06 AM CDT Bilateral Digital Mammogram with CAD and 3D Tomography Reason for Exam: Screening Comparison: Compared to: 11/06/2018 MAMMO SCRN BILAT 3D JAYLON W OR WO CAD, 11/05/2017 MAMMO SCREEN BILAT W OR WO CAD, 10/08/2016 MAMMO SCREEN BILAT W OR WO CAD, and 09/06/2015 MAMMO DIGITAL SCREEN BILAT Technique: 3D MLO and CC digital tomosynthesis images were acquired and synthesized 2D images (C view) were generated. This digital mammogram was also analyzed by the Computer Aided Detection System CAD). Breast Composition: The breasts are almost entirely fatty. There are no suspicious masses, areas of architectural distortions, or microcalcifications to suggest malignancy. No significant new findings since the prior mammogram(s). Melissa Anand MD MAMMO ORDERABLES Final Re sult * COLONOSCOPY REPORT (11/21/2018 9:21 AM CDT) Narrative Procedure Note Nehemiah Rodríguez MD - 11/21/2018 9:20 AM CDT [facility] Patient Name: Maya Figueroa Procedure Date: 11/21/2018 Date of : 1970 Admit Type: Outpatient Age: 48 Attending MD: Nehemiah Rodríguez , Procedure: Colonoscopy Indications: Change in bowel habits, Constipation Providers: Nehemiah Rodríguez Referring MD: Randy Ren MD Medicines: Propofol per Anesthesia Complications: No immediate complications. Procedure: After I obtained informed consent, the scope was passed under direct vision. Throughout the procedure, the patient's blood pressure, pulse, and oxygen saturations were monitored continuously. The Colonoscope was introduced through the anus and advanced to the terminal ileum, with identification of the appendiceal orifice and IC valve. The colonoscopy was performed without difficulty. The patient tolerated the procedure well. The quality of the bowel preparation was adequate. Estimated Blood Loss: Estimated blood loss: none. Findings: The colon (entire examined portion) appeared normal. The terminal ileum appeared normal. The retroflexed view of the distal rectum and anal verge was normal and showed no anal or rectal abnormalities. Recommendation: - Repeat colonoscopy in 10 years. Nehemiah Rodríguez, 11/21/2018 9:20:35 AM Number of Addenda: 0 Note Initiated On: 11/21/2018 9:04 AM Scope Withdrawal Time 0 hours 7 minutes 28 seconds Scope In: 9:08:01 AM Scope Out: 9:18:45 AM [address] [place], [place] Nehemiah Rodríguez MD GI PROCEDURE ORDERABLES Fin al Result * (ABNORMAL) POC OCCULT BLOOD UP TO 3 CARDS (07/31/2017 11:51 AM DIRECTOR UNDERWRITER SALES) OCCULT BLOOD 1 CARD POC Negative Negative [facility] OCCULT BLOOD 2 CARD POC Negative Negative [facility] OCCULT BLOOD 3 CARD POC Invalid Result(A) Negative [facility] Comment:no specimen on card INTERNAL KIT QC Pass Pass [facility] CARD LOT NUMBER POC [id number] [facility] CARD EXPIRATION DATE POC 02-15-2018 [facility] DEVELOPER LOT NUMBER POC [id number] [facility] DEVELOPER EXPIRATION DATE POC 12-16-2019 [facility] Stool STOOL SPECIMEN / Unknown 07/31/2017 11:51 AM DIRECTOR UNDERWRITER SALES Danita Smith [employer] [place] OF CARE TESTING Final R esult Performing Organization Address City/State/[facility] Co de Phone Number [facility] CLIA# [id number] [address] [place] [address] from Last 3 Months or Most Recently Relevant to Health Maintenance Insurance [place] Medicaid RX [employer] PLANS (INTERNAL) [facility] Internal Plans [place] Advance Directives For more information, please contact: [phone] * Full Code (Latest Code Status on File) Date Activated Date Inactivated Comments 11/21/2018 7:18 AM 11/21/2018 11:55 AM * Full Code Date Activated Date Inactivated Comments 07/31/2018 10:48 AM 07/31/2018 4:57 PM * Full Code Date Activated Date Inactivated Comments 07/31/2018 8:05 AM 07/31/2018 10:48 AM * Full Code Date Activated Date Inactivated Comments 04/19/2017 12:10 PM 04/19/2017 4:03 PM * Full Code Date Activated Date Inactivated Comments 01/03/2016 7:17 PM 01/04/2016 5:57 PM Care Teams Cart[employer] Waxing Machine Operator Relationship Specialty Start Date End Date Randy Ren MD [address] [place] [address] PCP - General Family Practice 01/25/15
--- OUTSIDE RECORDS SUMMARY | 2024-11-14 18:59 | XMS_ITS | Encounter Summary ---
Author Organization [facility] Address [address] [place] [address] Care Team Providers Care Solar Energy Specialist Name Role Phone Randy Ren MD Primary Care Provider [phone] Reason for Referral * MRI (Routine) - Closed Specialty Diagnoses / Procedures Referred By Liz herbert Referred To Contact Diagnoses Rotator cuff tendonitis, left Procedures MRI SHOULDER WO CONTRAST LEFT Lamin Roca NP [address] [place] [address] Phone: tel: fax: [facility] Pre-Registration [place] CALL TO MAKE APPOINTMENT ONLY [address] [place] [address] Phone: tel: fax: Referral ID Status Reason Start Date Expiration Date V isits Requested Visits Authorized [id number] Closed SGF [facility] TO SCHEDULE (SGF) 04/23/2018 05/23/2018 1 1 TLET PAIRER Encounter Details Date Type Department Care Team (Latest Contact Info) Description 04/22/2018 Ancillary Orders [facility] Pre-Registration [place] CALL TO MAKE APPOINTMENT ONLY [address] [place] [address] Lamin Roca NP [address] [place] [phone] Rotator cuff tendonitis, left Social History Tobacco Use Types Packs/Day Years Used Date Smoking Tobacco: Former Cigarettes 0 09/09/1987 - 09/08/1988 Smokeless Tobacco: Never Alcohol Use Standard Drinks/Week Comments No 0 (1 standard drink = 0.6 oz pur e alcohol) Comments No Sex and Gender Information Value Date Recorded Sex Assigned at Not on file Legal Sex Female 6:05 AM GAUNTLET PAIRER Gender Identity Not on file Sexual Orientation Not on file Occupation Industry Job Start Date Job End Date Not on file Not on file Not on file Not on file documented as of this encounter Plan of Treatment Not on file documented as of this encounter Results * MRI SHOULDER WO CONTRAST LEFT (05/01/2018 2:16 PM GAUNTLET PAIRER) Anatomical Region Laterality Modality Upper Extremity Magnetic Resonan ce 05/01/2018 2:16 PM GAUNTLET PAIRER Impressions 05/13/2018 4:01 PM GAUNTLET PAIRER IMPRESSION: Please see below. Exam: MRI SHOULDER WO CONTRAST LEFT Date/Time of Exam: 05/01/2018 2:16 PM Reason For Exam: . Diagnosis: Rotator cuff tendonitis, left. Technique: MRI of the left shoulder was performed without the administration of intravenous contrast. Comparison: Left shoulder radiographs 03/24/2018. Findings: The shoulder is in neutral position. The long head of the biceps tendon is centered within the bicipital groove and is within normal limits at the level of the rotator interval with the biceps anchor intact. No definite conventional MRI evidence of a discrete labral tear is identified. Sublobar labral foramen is noted. The humeral head is well positioned over the glenoid from anterior to posterior. A more focal region of abnormal decrease in signal on all pulse sequences measuring 6 mm in diameter of the posterior insertion of the supraspinatus tendon on the greater tuberosity is identified consistent with calcific tendinitis. No full thickness fluid-filled communicating defect/tear of the rotator cuff is identified. A type II acromium process is present. No concerning marrow signal abnormality is identified. IMPRESSION: 1. Calcific tendinitis of the posterior insertion of the supraspinatus tendon on the greater tuberosity without a full-thickness fluid-filled communicating defect/tear of the rotator cuff or definite labral pathology identified. [id number] Narrative Procedure Note Maria A Fitzpatrick MD - 05/13/2018 IMPRESSION: Please see below. Exam: MRI SHOULDER WO CONTRAST LEFT Date/Time of Exam: 05/01/2018 2:16 PM Reason For Exam: . Diagnosis: Rotator cuff tendonitis, left. Technique: MRI of the left shoulder was performed without the administration of intravenous contrast. Comparison: Left shoulder radiographs 03/24/2018. Findings: The shoulder is in neutral position. The long head of the biceps tendon is centered within the bicipital groove and is within normal limits at the level of the rotator interval with the biceps anchor intact. No definite conventional MRI evidence of a discrete labral tear is identified. Sublobar labral foramen is noted. The humeral head is well positioned over the glenoid from anterior to posterior. A more focal region of abnormal decrease in signal on all pulse sequences measuring 6 mm in diameter of the posterior insertion of the supraspinatus tendon on the greater tuberosity is identified consistent with calcific tendinitis. No full thickness fluid-filled communicating defect/tear of the rotator cuff is identified. A type II acromium process is present. No concerning marrow signal abnormality is identified. IMPRESSION: 1. Calcific tendinitis of the posterior insertion of the supraspinatus tendon on the greater tuberosity without a full-thickness fluid-filled communicating defect/tear of the rotator cuff or definite labral pathology identified. [id number] Lamin Roca NP MR ORDERABLES Final Resu lt documented in this encounter Visit Diagnoses Diagnosis Rotator cuff tendonitis, left Rotator cuff tendonitis, left documented in this encounter Additional Health Concerns Infection Onset Date Last Indicated Resolved Time MRSA Comment:Resolved 07/30/2018, Infection Prevention Nares 12/15/15 12/16/2015 12/16/2015 07/30/2018 10:47 AM GAUNTLET PAIRER R/O COVID-19 03/01/2020 03/01/2020 03/03/2020 1:01 AM CDT Assessment Noted Time PHQ-9 Depression Total Score: 6 08/24/19 17 8:00 AM GAUNTLET PAIRER documented as of this encounter Care Teams Solar Energy Specialist Relationship Specialty Start Date End Date Randy Ren MD [address] [place] [address] PCP - General Family Practice 01/25/15 documented as of this encounter
--- OUTSIDE RECORDS SUMMARY | 2024-11-14 18:59 | XMS_ITS | Encounter Summary ---
Author Organization [facility] Address [address] [place] [address] Care Team Providers Care Supervisor Assembly Room Name Role Phone Randy Ren MD Primary Care Provider Encounter Details Date Type Department Care Team (Latest Contact Info) Description 12/08/2003 Outpatient Historical [facility] [place] [address] [phone] Gregoria Olivarez MD [address] [place] [address] CRAMP IN LIMB (Primary Dx); HYPOTHYROIDISM NOS; NEUROTIC DEPRESSION Social History Tobacco Use Types Packs/Day Years Used Date Smoking Tobacco: Never Assessed Comments Unknown Sex and Gender Information Value Date Recorded Sex Assigned at Not on file Legal Sex Female 6:05 AM CORN PRESS OPERATOR Gender Identity Not on file Sexual Orientation Not on file documented as of this encounter Plan of Treatment Not on file documented as of this encounter Visit Diagnoses Diagnosis Cramp of limb- Primary Unspecified hypothyroidism Dysthymic disorder documented in this encounter Additional Health Concerns Infection Onset Date Last Indicated Resolved Time MRSA Comment:Resolved 07/30/2018, Infection Prevention Nares 12/15/15 12/16/2015 12/16/2015 07/30/2018 10:47 AM CORN PRESS OPERATOR R/O COVID-19 03/01/2020 03/01/2020 03/03/2020 1:01 AM CDT documented as of this encounter Care Teams Supervisor Assembly Room Relationship Specialty Start Date End Date Randy Ren MD [address] [place] [address] PCP - General Family Practice 01/25/15 documented as of this encounter
--- OUTSIDE RECORDS SUMMARY | 2024-11-14 18:59 | XMS_ITS | Encounter Summary ---
Author Organization [facility] Address [address] [place] [address] Care Team Providers Care Digital Media Coordinator Name Role Phone Randy Ren MD Primary Care Provider [phone] Encounter Details Date Type Department Care Team (Latest Contact Info) Description 10/13/2003 Outpatient Historical [address] [phone] Alondra Mehta MD [address] [place] [address], [address] HEMATURIA (Primary Dx); PNEUMONIA, ORGANISM NOS; HYPOGLYCEMIA NOS Social History Tobacco Use Types Packs/Day Years Used Date Smoking Tobacco: Never Assessed Comments Unknown Sex and Gender Information Value Date Recorded Sex Assigned at Not on file Legal Sex Female 6:05 AM SAP DIRECTOR Gender Identity Not on file Sexual Orientation Not on file documented as of this encounter Plan of Treatment Not on file documented as of this encounter Visit Diagnoses Diagnosis Hematuria- Primary Pneumonia, organism unspecified(486) Pneumonia, organism unspecified Hypoglycemia, unspecified documented in this encounter Additional Health Concerns Infection Onset Date Last Indicated Resolved Time MRSA Comment:Resolved 07/30/2018, Infection Prevention Nares 12/15/15 12/16/2015 12/16/2015 07/30/2018 10:47 AM SAP DIRECTOR R/O COVID-19 03/01/2020 03/01/2020 03/03/2020 1:01 AM CDT documented as of this encounter Care Teams Digital Media Coordinator Relationship Specialty Start Date End Date Randy Ren MD [address], [place] [address] PCP - General Family Practice 01/25/15 documented as of this encounter
--- OUTSIDE RECORDS SUMMARY | 2024-11-14 18:59 | XMS_ITS | Encounter Summary ---
Author Organization [facility] Address [address] [place] [address] Care Team Providers Care Chemical Strength Tester Name Role Phone MelissaAndrea westbrook Primary Care Provider [phone] Encounter Details Date Type Department Care Team (Late st Contact Info) Description 11/05/2024 Orders Only [facility] Health Information Management [place] [address] [place] [address] Provider, Abstract NO ADDRESS ON FILE Social History Tobacco Use Types Packs/Day Years Used Date Smoking Tobacco: Former Cigarettes Q uit: 09/08/1988 Passive Smoke Exposure: Past Smokeless Tobacco: Never Alcohol Use Standard Drinks/Week Comments No 0 (1 standard drink = 0.6 oz pur e alcohol) Utility Needs Answer Date Recorded In the past 12 months has [employer], gas, oil, or water [employer] threatened to shut off services in your [...] often do you attend chur ch or amish services? 1 to 4 times per year 11/01/2023 Do you belong to any clubs o r organizations such as methodist groups, unions, fraternal or athletic groups, or [...] on file Legal Sex Female 2:33 AM DECAL CUTTER Gender Identity Not on file Sexual Orientation Not on file documented as of this encounter Plan of Treatment Upcoming Encounters Date Type Department Care Team (Late st Contact Info) Description 11/25/2024 11:40 AM CDT Office Visit [facility] [address] [phone] MelissadarianaAndrea, [address] [place] [address] 12/02/2024 3:00 PM CDT Office Visit [facility] Headache Management [place] [address] [facility] [address] [place] [address] Nataliia Gallegos, CAN CRIMPER [address] [facility] [address] [place] [address] 12/17/2024 11:00 AM CDT Appointment [facility] Pulmonary Function Testing [place] [address] [place] [address] Andrea Ren, [address] [place] [address] 12/17/2024 1:10 PM CDT Office Visit [facility] [address] [phone] Danita Smith [facility] [address] [place] [address] 02/03/2025 10:00 AM CDT Office Visit [facility] Urology- [place] [address] [address] [facility] [address] 3rd [place] [address] Kylie Villafuerte NP [address] [facility] [address] [place] [address] 03/26/2025 11:10 AM CDT Appointment [facility] [address] [place] [address] Melissa Anand MD [address] [place] [phone] 03/30/2025 11:00 AM CDT Office Visit [facility] Gastroenterology- [place] [address] [place] [address] Corin De Leon NP [address] [place] [address] 05/14/2025 11:20 AM DECAL CUTTER Office Visit [facility] [address] [place] [address] Ora De Anda PA [address] [place] [address] 07/12/2025 10:45 AM DECAL CUTTER Office Visit [facility] [address] [facility] [address] [place] [address] Dorys Cano, CAN CRIMPER [address] [address] 08/25/2025 8:00 AM CDT Hospital Encounter [facility] Endoscopy [address] [place] [address] Aayush Jc MD [address] [facility] [address] [place] [phone] 08/25/2025 8:00 AM CDT - 08/25/2025 8:20 AM CDT Surgery [facility] Endoscopy [address] [place] [address] Aayush Jc MD [address] [place] [address] COLONOSCOPY 11/11/2025 10:50 AM CDT Office Visit [facility] Gopal James Telford [address] [place] [address] Melissa Anand MD [address] [place] [address] Scheduled Procedures Name Priority Associated Diagnoses Date/Ti me COLONOSCOPY Iron deficiency anemia, unspecified iron deficiency anemia type Chronic idiopathic constipation Colon cancer screening 08/25/2025 8:00 AM CDT documented as of this encounter Procedures Procedure Name Priority Date/Time Associated Diagnosis Comments COMPREHENSIVE METABOLIC PANEL Routine 11/02/2024 10:14 AM CDT COMPREHENSIVE METABOLIC PANEL Routine 11/01/2024 10:13 AM CDT COMPREHENSIVE METABOLIC PANEL Routine 10/31/2024 10:13 AM CDT COMPREHENSIVE METABOLIC PANEL Routine 10/30/2024 10:12 AM CDT ECHO COMPLETE Routine 10/30/2024 10:11 AM CDT COMPREHENSIVE METABOLIC PANEL Routine 10/29/2024 10:12 AM CDT documented in this encounter Results * COMPREHENSIVE METABOLIC PANEL (11/02/2024 10:14 AM CDT) Blood us Abstract Provider CHEMISTRY ORDERABLES Final Res ult * COMPREHENSIVE METABOLIC PANEL (11/01/2024 10:13 AM CDT) Blood us Abstract Provider CHEMISTRY ORDERABLES Final Res ult * COMPREHENSIVE METABOLIC PANEL (10/31/2024 10:13 AM CDT) Blood us Abstract Provider CHEMISTRY ORDERABLES Final Res ult * COMPREHENSIVE METABOLIC PANEL (10/30/2024 10:12 AM CDT) Blood us Abstract Provider CHEMISTRY ORDERABLES Final Res ult * ECHO COMPLETE - CONTRAST AND STRAIN IF INDICATED (10/30/2024 10:11 AM CDT) us Abstract Provider US ORDERABLES Final Result * COMPREHENSIVE METABOLIC PANEL (10/29/2024 10:12 AM CDT) Blood us Abstract Provider CHEMISTRY ORDERABLES Final Res ult documented in this encounter Visit Diagnoses Not on filedocumented in this encounter Additional Health Concerns Assessment Noted Time PHQ-9 Depression Total Score: 6 10/09/19 25 3:00 PM CDT documented as of this encounter Care Teams Chemical Strength Tester Relationship Specialty Start Date End Date Andrea Ren DO [address] [place] [address] PCP - General Family Practice 08/03/21 documented as of this encounter
--- OUTSIDE RECORDS SUMMARY | 2024-11-14 18:59 | XMS_ITS | Encounter Summary ---
Author Organization [facility] Address [address] [place] [address] Care Team Providers Care Press Tender Smoke Signal Name Role Phone Randy Ren MD Primary Care Provider [phone] Encounter Details Date Type Department Care Team (Latest Contact Info) Description 11/01/2003 Outpatient Historical [address] [phone] Alondra Mehta MD [address] [place] [address], [address] DERMATITIS NOS (Primary Dx); URTICARIA NOS Social History Tobacco Use Types Packs/Day Years Used Date Smoking Tobacco: Never Assessed Comments Unknown Sex and Gender Information Value Date Recorded Sex Assigned at Not on file Legal Sex Female 6:05 AM PROGRAM PARAPROFESSIONAL Gender Identity Not on file Sexual Orientation Not on file documented as of this encounter Plan of Treatment Not on file documented as of this encounter Visit Diagnoses Diagnosis Contact dermatitis and other eczema, due to unspecified cause- Primary Urticaria, unspecified documented in this encounter Additional Health Concerns Infection Onset Date Last Indicated Resolved Time MRSA Comment:Resolved 07/30/2018, Infection Prevention Nares 12/15/15 12/16/2015 12/16/2015 07/30/2018 10:47 AM PROGRAM PARAPROFESSIONAL R/O COVID-19 03/01/2020 03/01/2020 03/03/2020 1:01 AM CDT documented as of this encounter Care Teams Press Tender Smoke Signal Relationship Specialty Start Date End Date Randy Ren MD [address] [place] [address] PCP - General Family Practice 01/25/15 documented as of this encounter
--- OUTSIDE RECORDS SUMMARY | 2024-11-14 18:59 | XMS_ITS | Encounter Summary ---
Author Organization [facility] Address [address] [place] [address] Care Team Providers Care Financial Analysis Consultant Name Role Phone Randy Ren MD Primary Care Provider [phone] Encounter Details Date Type Department Care Team (Latest Contact Info) Description 10/08/2003 Outpatient Historical [address] [phone] Alondra Mehta MD [address] [place] [address], [address] TRACHEA/BRONCHUS DIS NEC (Primary Dx); URGE INCONTINENCE; PNEUMONIA, ORGANISM NOS Social History Tobacco Use Types Packs/Day Years Used Date Smoking Tobacco: Never Assessed Comments Unknown Sex and Gender Information Value Date Recorded Sex Assigned at Not on file Legal Sex Female 6:05 AM ALUMINA REFINERY OPERATOR Gender Identity Not on file Sexual Orientation Not on file documented as of this encounter Plan of Treatment Not on file documented as of this encounter Visit Diagnoses Diagnosis Other diseases of trachea and bronchus, not elsewhere classified- Primary Urge incontinence Pneumonia, organism unspecified(486) Pneumonia, organism unspecified documented in this encounter Additional Health Concerns Infection Onset Date Last Indicated Resolved Time MRSA Comment:Resolved 07/30/2018, Infection Prevention Nares 12/15/15 12/16/2015 12/16/2015 07/30/2018 10:47 AM ALUMINA REFINERY OPERATOR R/O COVID-19 03/01/2020 03/01/2020 03/03/2020 1:01 AM CDT documented as of this encounter Care Teams Financial Analysis Consultant Relationship Specialty Start Date End Date Randy Ren MD [address], [place] [address] PCP - General Family Practice 01/25/15 documented as of this encounter
--- OUTSIDE RECORDS SUMMARY | 2024-11-14 18:59 | XMS_ITS | Encounter Summary ---
Author Organization [facility] Address [address] [place] [address] Care Team Providers Care Rn Pain Management Name Role Phone Randy Ren MD Primary Care Provider [phone] Encounter Details Date Type Department Care Team (Latest Contact Info) Description 10/04/2003 Outpatient Historical [address] [phone] Alondra Mehta MD [address] [place] [address], [phone] ACUTE FRONTAL SINUSITIS (Primary Dx); ACUTE BRONCHITIS Social History Tobacco Use Types Packs/Day Years Used Date Smoking Tobacco: Never Assessed Comments Unknown Sex and Gender Information Value Date Recorded Sex Assigned at Not on file Legal Sex Female 6:05 AM PRESS WORKER HELPER Gender Identity Not on file Sexual Orientation Not on file documented as of this encounter Plan of Treatment Not on file documented as of this encounter Visit Diagnoses Diagnosis Acute frontal sinusitis- Primary Acute bronchitis documented in this encounter Additional Health Concerns Infection Onset Date Last Indicated Resolved Time MRSA Comment:Resolved 07/30/2018, Infection Prevention Nares 12/15/15 12/16/2015 12/16/2015 07/30/2018 10:47 AM PRESS WORKER HELPER R/O COVID-19 03/01/2020 03/01/2020 03/03/2020 1:01 AM CDT documented as of this encounter Care Teams Rn Pain Management Relationship Specialty Start Date End Date Randy Ren MD [address] [place] [address] PCP - General Family Practice 01/25/15 documented as of this encounter
--- OUTSIDE RECORDS SUMMARY | 2024-11-14 18:59 | XMS_ITS | Encounter Summary ---
Author Organization [facility] Address [address] [place] [address] Care Team Providers Care Service Tech Name Role Phone Randy Ren MD Primary Care Provider [phone] Encounter Details Date Type Department Care Team (Latest Contact Info) Description 06/11/2002 Outpatient Historical [address] [phone] Alondra Mehta MD [address] [place] [address], [address] ESOPHAGEAL REFLUX (Primary Dx); DYSPHAGIA Social History Tobacco Use Types Packs/Day Years Used Date Smoking Tobacco: Never Assessed Comments Unknown Sex and Gender Information Value Date Recorded Sex Assigned at Not on file Legal Sex Female 6:05 AM MANAGER EQUIPMENT Gender Identity Not on file Sexual Orientation Not on file documented as of this encounter Plan of Treatment Not on file documented as of this encounter Visit Diagnoses Diagnosis Esophageal reflux- Primary Dysphagia documented in this encounter Additional Health Concerns Infection Onset Date Last Indicated Resolved Time MRSA Comment:Resolved 07/30/2018, Infection Prevention Nares 12/15/15 12/16/2015 12/16/2015 07/30/2018 10:47 AM MANAGER EQUIPMENT R/O COVID-19 03/01/2020 03/01/2020 03/03/2020 1:01 AM CDT documented as of this encounter Care Teams Service Tech Relationship Specialty Start Date End Date Randy Ren MD [address] [place] [address] PCP - General Family Practice 01/25/15 documented as of this encounter
--- OUTSIDE RECORDS SUMMARY | 2024-11-14 18:59 | XMS_ITS | Encounter Summary ---
Author Organization [facility] Address [address] [place] [address] Care Team Providers Care Technical Support Intern Name Role Phone Randy Ren MD Primary Care Provider [phone] Reason for Referral * Radiology Services (Routine) - Closed Specialty Diagnoses / Procedures Referred By Contac t Referred To Contact Radiology Diagnoses Leg pain, bilateral Procedures US ANKLE PRESSURE INDEX US ANKLE BRACHIAL INDEX W STRESS Zainab James FNP [address] [place] [address] Phone: tel: fax: [facility] Non-Invasive Procedure [address] [place] [address] Phone: tel: fax: Referral ID Status Reason Start Date Expiration Date Visits Re quested Visits Authorized [id number] Closed 10/19/2020 11/19/2021 1 1 Encounter Details Date Type Department Care Team (Late st Contact Info) Description 12/08/2020 Ancillary Orders [facility] Pain Management [address] [place] [address] Zainab James FNP [address] [place] [address] Leg pain, bilateral Social History Tobacco Use Types Packs/Day Years Used Date Smoking Tobacco: Former Cigarettes 1 2 0 09/08/1986 - 09/08/1988 Smokeless Tobacco: Never Alcohol Use [...] How often do you attend chur or episcopal services? Never 09/01/2020 Do you belong to any clubs o r organizations such as mandaeism groups, unions, fraternal or athletic groups, or [...] on file Legal Sex Female 6:05 AM FERMENTER CHAMPAGNE Gender Identity Not on file Sexual Orientation Not on file Occupation Industry Job Start Date Job End Date Not on file Not on file Not on file Not on file COVID-19 Exposure Response Date Recorded In the last month, have you been in contact with someone who was confirmed or suspected to have Coronavirus / COVID-19? No / Unsure 12/08/2020 7:13 AM CDT documented as of this encounter Plan of Treatment Not on file documented as of this encounter Results * US ANKLE PRESSURE INDEX (12/08/2020 12:28 PM CDT) Anatomical Region Laterality Modality Lower Extremity Ultrasound 12/08/2020 8:29 AM CDT Narrative 12/08/2020 1:08 PM CDT [facility] Cardiovascular Services Noninvasive Vascular Laboratory [address] [place] [address] Noninvasive Vascular Lab RYAN with PVR Arterial Physiologic Evaluation Patient: Maya Figueroa Study ID: US RYAN Gender: F : 1970 Age: 50 Room: Height: Weight: BSA: Pt status: Outpatient Study Date: 12/08/2020 Study Time: 08:29:00 AM BSA: Ordering: Zainab James Interpreting:Arley Acosta MD Architectural Associate: Mariela Kramer RVT Indications: LEG PAIN. History: Bilateral lower extremity pain. Risk factors: Hypertension. Dyslipidemia. Summary Impression: 1. No evidence of arterial insufficiency at rest involving the right lower extremity 2. No evidence of arterial insufficiency at rest involving the left lower extremity Study data: RYAN with PVR. Ankle-brachial index and pulse volume recording. Ethnicity: Ethnicity: white. Location: Vascular laboratory. Patient status: Outpatient. Study status: Routine. Procedure: A vascular evaluation was performed. Exam quality was good. Ankle brachial indices Rt PT: 131mm Hg Rt DP: 114mm Hg Rt brachial: 109mm Hg Rt PT: 1.19 Rt DP: 1.04 Lt PT: 122mm Hg Lt DP: 112mm Hg Lt Brachial: 110mm Hg Lt PT: 1.11 Lt DP: 1.02 Brachial pressures: - Rt brachial pressure (sys): 109mm Hg - Lt brachial pressure (sys): 110mm Hg - Max brachial pressure (sys): 110mm Hg Arterial flow: - Right posterior tibial - Triphasic - Right dorsal pedal - Triphasic - Left posterior tibial - Triphasic - Left dorsal pedal - Triphasic Photoplethysmography: - R 1st toe Mildly dampened - R 2nd toe Mildly dampened - R 3rd toe Mildly dampened - R 4th toe Mildly dampened - R 5th toe Mildly dampened - L 1st toe Moderately dampened - L 2nd toe Moderately dampened - L 3rd toe Moderately dampened - L 4th toe Mildly dampened - L 5th toe Mildly dampened [facility] Vascular Lab is accredited with the Intersocietal Commission for the Accreditation of Vascular Laboratories (ICAVL) Prepared and Electronically Authenticated Arley Acosta MD Confirmed 12/08/2020 13:08 Procedure Note Arley Acosta MD - 12/08/2020 [facility] Cardiovascular Services Noninvasive Vascular Laboratory [address] [place] [address] Noninvasive Vascular Lab RYAN with PVR Arterial Physiologic Evaluation Patient: Maya Figueroa Study ID: US RYAN Gender: F : 1970 Age: 50 Room: Height: Weight: BSA: Pt status: Outpatient Study Date: 12/08/2020 Study Time: 08:29:00 AM BSA: Ordering: Zainab James Interpreting:Arley Acosta MD Architectural Associate: Mariela E McHaffie RVT Indications: LEG PAIN. History: Bilateral lower extremity pain. Risk factors: Hypertension. Dyslipidemia. Summary Impression: 1. No evidence of arterial insufficiency at rest involving the right lower extremity 2. No evidence of arterial insufficiency at rest involving the left lower extremity Study data: RYAN with PVR. Ankle-brachial index and pulse volume recording. Ethnicity: Ethnicity: white. Location: Vascular laboratory. Patient status: Outpatient. Study status: Routine. Procedure: A vascular evaluation was performed. Exam quality was good. Ankle brachial indices Rt PT: 131mm Hg Rt DP: 114mm Hg Rt brachial: 109mm Hg Rt PT: 1.19 Rt DP: 1.04 Lt PT: 122mm Hg Lt DP: 112mm Hg Lt Brachial: 110mm Hg Lt PT: 1.11 Lt DP: 1.02 Brachial pressures: - Rt brachial pressure (sys): 109mm Hg - Lt brachial pressure (sys): 110mm Hg - Max brachial pressure (sys): 110mm Hg Arterial flow: - Right posterior tibial - Triphasic - Right dorsal pedal - Triphasic - Left posterior tibial - Triphasic - Left dorsal pedal - Triphasic Photoplethysmography: - R 1st toe Mildly dampened - R 2nd toe Mildly dampened - R 3rd toe Mildly dampened - R 4th toe Mildly dampened - R 5th toe Mildly dampened - L 1st toe Moderately dampened - L 2nd toe Moderately dampened - L 3rd toe Moderately dampened - L 4th toe Mildly dampened - L 5th toe Mildly dampened [facility] Vascular Lab is accredited with the Intersocietal Commission for the Accreditation of Vascular Laboratories (ICAVL) Prepared and Electronically Authenticated Arley Acosta MD Confirmed 12/08/2020 13:08 us Zainab A Jacob BI APPLICATION DEVELOPER US ORDERABLES Final Result documented in this encounter Visit Diagnoses Diagnosis Leg pain, bilateral Pain in limb Leg pain, bilateral Pain in limb documented in this encounter Additional Health Concerns Assessment Noted Time PHQ-9 Depression Total Score: 3 08/20/19 19 2:00 PM FERMENTER CHAMPAGNE documented as of this encounter Care Teams Technical Support Intern Relationship Specialty Start Date End Date Randy Ren MD [address] [place] [address] PCP - General Family Practice 01/25/15 documented as of this encounter
--- OUTSIDE RECORDS SUMMARY | 2024-11-14 18:59 | XMS_ITS | Encounter Summary ---
Author Organization [facility] Address [address] [place] [address] Care Team Providers Care Train Electronic Technician Name Role Phone Randy Ren MD Primary Care Provider [phone] Reason for Referral * Outpatient Services (Routine) - Closed Specialty Diagnoses / Procedures Referred By Contac t Referred To Contact Diagnoses Inconclusive mammogram Procedures MAMMO BREAST US BILAT LTD Randy Ren MD [address] [place] [address] Phone: tel: fax: Referral ID Status Reason Start Date Expiration Date Visits Re quested Visits Authorized [id number] Closed 09/22/2015 10/22/2016 1 1 Encounter Details Date Type Department Care Team (Latest Contact Info) Description 09/22/2015 Ancillary Orders [facility] [address] [facility] [address] [place] [address] Randy Ren MD [address] [place] [address] Inconclusive mammogram (Primary Dx) Social History Tobacco Use Types Packs/Day Years Used Date Smoking Tobacco: Former Cigarettes 0 09/09/1987 - 09/08/1988 Smokeless Tobacco: Never Alcohol Use Standard Drinks/Week Comments No 0 (1 standard drink = 0.6 oz pur e alcohol) Comments No Sex and Gender Information Value Date Recorded Sex Assigned at Not on file Legal Sex Female 6:05 AM LIVESTOCK COUNTER Gender Identity Not on file Sexual Orientation Not on file Occupation Industry Job Start Date Job End Date Not on file Not on file Not on file Not on file documented as of this encounter Plan of Treatment Not on file documented as of this encounter Results * MAMMO BREAST US BILAT LTD (09/22/2015 1:48 PM CDT) Anatomical Region Laterality Modality Bilateral Ultrasound 09/22/2015 1:48 PM CDT Impressions 09/22/2015 4:42 PM CDT IMPRESSION: Patient returned for directed bilateral axillary ultrasound. Unremarkable appearing lymph nodes were identified bilaterally. Patient is denying any complaints. Routine yearly screening exams are recommended. Patient received the result and recommendation letter. [id number] Narrative 09/22/2015 4:42 PM CDT REASON FOR EXAM: Patient was requested to return for further evaluation bilaterally in the axillary region to evaluate nodularity noted on mammogram of 09/06/2015. FAMILY HX.-BREAST Ca: Paternal cousin diagnosed in her 40s. IMAGING PERFORMED: Directed bilateral axillary ultrasound. ULTRASOUND FINDINGS: RIGHT BREAST: Sonographic evaluation was carried out in the right axilla and there are two unremarkable appearing subcentimeter lymph nodes identified which correspond to the two well-defined nodules identified mammographically. LEFT BREAST: Scanning was carried out in the left axillary region and a few lymph nodes are identified. These do not appear to be enlarged and correspond to the areas of nodularity identified on the recent mammogram. Randy Ren MD MAMMO ORDERABLES Final Result documented in this encounter Visit Diagnoses Diagnosis Inconclusive mammogram Inconclusive mammogram- Primary documented in this encounter Additional Health Concerns Infection Onset Date Last Indicated Resolved Time MRSA Comment:Resolved 07/30/2018, Infection Prevention Nares 12/15/15 12/16/2015 12/16/2015 07/30/2018 10:47 AM LIVESTOCK COUNTER R/O COVID-19 03/01/2020 03/01/2020 03/03/2020 1:01 AM CDT documented as of this encounter Care Teams Train Electronic Technician Relationship Specialty Start Date End Date Randy Ren MD [address] [place] [address] PCP - General Family Practice 01/25/15 documented as of this encounter
--- OUTSIDE RECORDS SUMMARY | 2024-11-14 18:59 | XMS_ITS | Encounter Summary ---
Author Organization [facility] Address [address] [place] [address] Care Team Providers Care Food Broker Name Role Phone Randy Ren MD Primary Care Provider [phone] Encounter Details Date Type Department Care Team (Latest Contact Info) Description 09/13/2015 Ancillary Orders [facility] [address] [facility] [address] [place] [address] Randy Ren MD [address] [place] [address] Inconclusive mammogram (Primary Dx) Social History Tobacco Use Types Packs/Day Years Used Date Smoking Tobacco: Former Cigarettes 0 09/09/1987 - 09/08/1988 Smokeless Tobacco: Never Alcohol Use Standard Drinks/Week Comments No 0 (1 standard drink = 0.6 oz pur e alcohol) Comments No Sex and Gender Information Value Date Recorded Sex Assigned at Not on file Legal Sex Female 6:05 AM LINING IRONER Gender Identity Not on file Sexual Orientation Not on file Occupation Industry Job Start Date Job End Date Not on file Not on file Not on file Not on file documented as of this encounter Plan of Treatment Not on file documented as of this encounter Visit Diagnoses Diagnosis Inconclusive mammogram- Primary documented in this encounter Additional Health Concerns Infection Onset Date Last Indicated Resolved Time MRSA Comment:Resolved 07/30/2018, Infection Prevention Nares 12/15/15 12/16/2015 12/16/2015 07/30/2018 10:47 AM LINING IRONER R/O COVID-19 03/01/2020 03/01/2020 03/03/2020 1:01 AM CDT documented as of this encounter Care Teams Food Broker Relationship Specialty Start Date End Date Randy Ren MD [address] [place] [address] PCP - General Family Practice 01/25/15 documented as of this encounter
--- OUTSIDE RECORDS SUMMARY | 2024-11-14 18:59 | XMS_ITS | Encounter Summary ---
Author Organization [facility] Address [address] [place] [address] Care Team Providers Care P 3 Armament/Ordnance Ima Technician Name Role Phone Andrea Ren Primary Care Provider [phone] Reason for Visit * Reason Comments Med Refill Encounter Details Date Type Department Care Team (Late st Contact Info) Description 11/11/2024 Refill [facility] Endocrinology [facility] [address] [place] [address] AdilsonOra palmer PA [address] [place] [address] Essential hypertension (Primary Dx); Type 2 diabetes mellitus with hyperglycemia, with long-term current use of insulin ([facility]); Stage 3a chronic kidney disease ([facility]); Acute on chronic diastolic congestive heart failure ([facility]) Social History Tobacco Use Types Packs/Day Years Used Date Smoking Tobacco: Former Cigarettes Q uit: 09/08/1988 Passive Smoke Exposure: Past Smokeless Tobacco: Never Alcohol Use Standard Drinks/Week Comments No 0 (1 standard drink = 0.6 oz pur e alcohol) Utility Needs Answer Date Recorded In the past 12 months has e electric, gas, oil, or water company threatened [...] How often do you attend chur or congregational services? 1 to 4 times per year 11/01/2023 Do you belong to any clubs o r organizations such as rastafarian groups, unions, fraternal or athletic groups, or [...] on file Legal Sex Female 2:33 AM QUOTATION CLERK Gender Identity Not on file Sexual Orientation Not on file documented as of this encounter Plan of Treatment Upcoming Encounters Date Type Department Care Team (Late st Contact Info) Description 11/25/2024 11:40 AM CDT Office Visit [address] [address] Andrea Ren DO [address] [place] [address] 12/02/2024 3:00 PM CDT Office Visit [facility] Headache Management [place] [address] [place] [address] Nataliia Gallegos FNP [address] [address] 12/17/2024 11:00 AM CDT Appointment [facility] Pulmonary Function Testing [address] [place] [address] Andrea Ren DO [address] [place] [address] 12/17/2024 1:10 PM CDT Office Visit [address] [address] Danita Smith BRINE MAKER [address] [place] [address] 02/03/2025 10:00 AM CDT Office Visit [facility] Urology- [place] [address]tr[address], 3rd [place] [address] Kylie Villafuerte NP [address] [place] [address] 03/26/2025 11:10 AM CDT Appointment [facility] [address] [place] [address] Melissa Anand MD [address] [place] [address] 03/30/2025 11:00 AM CDT Office Visit [facility] Gastroenterology- [place] [address] [place] [address] Corin De Leon NP [address] [place] [address] 05/14/2025 11:20 AM QUOTATION CLERK Office Visit [facility] Endocrinology [facility] [address] [place] [address] Ora De Anda PA [address] [place] [address] 07/12/2025 10:45 AM QUOTATION CLERK Office Visit [facility] Sleep Center [address] [facility] [address] [place] [address] Dorys Cano, LILLIE [address] [facility] [address] [place] [address] 08/25/2025 8:00 AM CDT Hospital Encounter [facility] Endoscopy [address] [place] [address] Aayush Sofia MD [address] [facility] [address] [place] [address] 08/25/2025 8:00 AM CDT - 08/25/2025 8:20 AM CDT Surgery [facility] Endoscopy [address] [place] [address] Aayush Sofia MD [address] [facility] [address] [place] [address] COLONOSCOPY 11/11/2025 10:50 AM CDT Office Visit [facility] GUERREROAshu James Rekha [address] [place] [address] Melissa Anand MD [address] [place] [address] Scheduled Procedures Name Priority Associated Diagnoses Date/Ti me COLONOSCOPY Iron deficiency anemia, unspecified iron deficiency anemia type Chronic idiopathic constipation Colon cancer screening 08/25/2025 8:00 AM CDT documented as of this encounter Visit Diagnoses Diagnosis Essential hypertension- Primary Unspecified essential hypertension Type 2 diabetes mellitus with hyperglycemia, with long-term current use of insulin (CMS/HCC) Stage 3a chronic kidney disease (CMS/HCC) Acute on chronic diastolic congestive heart failure (CMS/HCC) Acute on chronic diastolic heart failure documented in this encounter Additional Health Concerns Assessment Noted Time PHQ-9 Depression Total Score: 6 10/09/19 25 3:00 PM CDT documented as of this encounter Care Teams P 3 Armament/Ordnance Ima Technician Relationship Specialty Start Date End Date Andrea Ren DO [address] [place] [address] PCP - General Family Practice 08/03/21 documented as of this encounter
--- OUTSIDE RECORDS SUMMARY | 2024-11-14 18:59 | XMS_ITS | Encounter Summary ---
Author Organization [facility] Address [address] [place] [address] Care Team Providers Care Chainstitch Elastic Attacher Name Role Phone Andrea Ren Primary Care Provider [phone] Reason for Visit * Reason Comments Med Refill Encounter Details Date Type Department Care Team (Late st Contact Info) Description 11/11/2024 Refill [facility] Family Medicine [place] [address] [address] Danita Smith, ENVIRONMENTAL TECHNICIAN [address] [place] [address] Irritable bowel syndrome without diarrhea; Other constipation Social History Tobacco Use Types Packs/Day Years Used Date Smoking Tobacco: Former Cigarettes Q uit: 09/08/1988 Passive Smoke Exposure: Past Smokeless Tobacco: Never Alcohol Use Standard Drinks/Week Comments No 0 (1 standard drink = 0.6 oz pur e alcohol) Utility Needs Answer Date Recorded In the past 12 months has [employer], gas, oil, or water company threatened to [...] often do you attend chur ch or anglican services? 1 to 4 times per year [...] on file Legal Sex Female 2:33 AM SENIOR COMMUNICATIONS ENGINEER Gender Identity Not on file Sexual Orientation Not on file documented as of this encounter Miscellaneous Notes * Telephone Encounter - Angie Wills LPN - 11/12/2024 9:48 AM CDT Medication Refill Request Last Fill Date:12/03/23 90/3 Recent and Future Visits: Recent Visits Date Type Provider Dept 11/04/24 Office Visit Danita Smith, [facility] 10/29/24 Office Visit Danita Smith, [facility] 10/26/24 Office Visit Rohini Swann [facility] 10/08/24 Office Visit Andrea Ren, DO [facility] 07/02/24 Office Visit Andrea Ren, DO [facility] 03/31/24 Office Visit Andrea Ren, DO [facility] 03/19/24 Office Visit Danita Smith, [facility] 12/30/23 Office Visit Ivania Davey, [facility] 12/25/23 Office Visit Andrea Ren, DO [facility] 09/10/23 Office Visit Andrea Ren, [facility] Showing recent visits within past 540 days with a meds authorizing provider and meeting all other requirements Today's Visits Date Type Provider Dept 11/12/24 Appointment Andrea Ren DO [facility] Showing today's visits with a meds authorizing provider and meeting all other requirements Future Appointments Date Type Provider Dept 11/25/24 Appointment Andrea Ren DO [facility] Showing future appointments within next 365 days with a meds authorizing provider and meeting all other requirements documented in this encounter Plan of Treatment Upcoming Encounters Date Type Department Care Team (Late st Contact Info) Description 11/25/2024 11:40 AM CDT Office Visit [facility] [address] [phone] Andrea Ren, [address] [place] [address] 12/02/2024 3:00 PM CDT Office Visit [facility] Headache Management [place] [address] [facility] [address] [place] [address] Nataliia Gallegos FNP [address] [facility] [address] [place] [address] 12/17/2024 11:00 AM CDT Appointment [facility] Pulmonary Function Testing [address] [place] [address] Andrea Ren, [address] [place] [address] 12/17/2024 1:10 PM CDT Office Visit [facility] [address] [address] Danita Smith [facility] [address] [place] [address] 02/03/2025 10:00 AM CDT Office Visit [facility] Urology- [place] [address] [facility] [address], 3rd [place] [address] Kylie Villafuerte NP [address] [facility] [address] [place] [address] 03/26/2025 11:10 AM CDT Appointment [facility] [address] [facility] [place] [address] Melissa Anand MD [address] [place] [address] 03/30/2025 11:00 AM CDT Office Visit [facility] Gastroenterology- [place] [address] [place] [address] Corin De Leon NP [address] [place] [address] 05/14/2025 11:20 AM SENIOR COMMUNICATIONS ENGINEER Office Visit [facility] [address] [place] [address] Ora De Anda PA [address] [place] [address] 07/12/2025 10:45 AM SENIOR COMMUNICATIONS ENGINEER Office Visit [facility] Sleep Center [address] [facility] [address] [place] [address] Dorys Cano, ENVIRONMENTAL TECHNICIAN [address] [address] 08/25/2025 8:00 AM CDT Hospital Encounter [facility] Endoscopy [address] [place] [address] Aayush Jc MD [address] [facility] [address] [place] [address] 08/25/2025 8:00 AM CDT - 08/25/2025 8:20 AM CDT Surgery [facility] Endoscopy [address] [place] [address] Aayush Sofia MD [address] [place] [address] COLONOSCOPY 11/11/2025 10:50 AM CDT Office Visit [facility] Gopal [place] [address] [place] [address] Melissa Anand MD [address] [place] [address] Scheduled Procedures Name Priority Associated Diagnoses Date/Ti me COLONOSCOPY Iron deficiency anemia, unspecified iron deficiency anemia type Chronic idiopathic constipation Colon cancer screening 08/25/2025 8:00 AM CDT documented as of this encounter Visit Diagnoses Diagnosis Irritable bowel syndrome without diarrhea Irritable bowel syndrome Other constipation documented in this encounter Additional Health Concerns Assessment Noted Time PHQ-9 Depression Total Score: 6 10/09/19 25 3:00 PM CDT documented as of this encounter Care Teams Chainstitch Elastic Attacher Relationship Specialty Start Date End Date Andrea Ren DO [address] [place] [address] PCP - General Family Practice 08/03/21 documented as of this encounter
--- OUTSIDE RECORDS SUMMARY | 2024-11-14 18:59 | XMS_ITS | Encounter Summary ---
Author Organization [facility] Address [address] [place] [address] Care Team Providers Care Associate Professor Of Theology Name Role Phone Randy Ren MD Primary Care Provider [phone] Encounter Details Date Type Department Care Team (Late st Contact Info) Description 06/19/2015 Nurse Triage Report [id number] ABSTRACTION Erica Lugo, RN Social History Tobacco Use Types Packs/Day Years Used Date Smoking Tobacco: Former Cigarettes Q uit: 09/08/1988 Smokeless Tobacco: Never Alcohol Use Standard Drinks/Week Comments No 0 (1 standard drink = 0.6 oz pur e alcohol) Comments No Sex and Gender Information Value Date Recorded Sex Assigned at Not on file Legal Sex Female 6:05 AM EXPENDITURE REQUISITION CLERK Gender Identity Not on file Sexual Orientation Not on file Occupation Industry Job Start Date Job End Date Not on file Not on file Not on file Not on file documented as of this encounter Progress Notes * Erica Lugo, CORIE - 06/19/2015 10:19 PM CST CHART DOCUMENTATION ONLY Call Type: Triage Call Presenting Problem: I have chest pain. Report feedback to Dr Anand Associated Symptoms: constant pain, SOB now Onset: 2 days Location: chest, into back Pain Assessment: 1 - 10 with 10 being the most severe pain 4-5 Treatment so far for current presenting problem: none History (Clinical Problems): Hysterectomy a week ago, Medications: Deffered due to pt condition Medication reactions: Deferred due to pt condition <<<<<<<< TRIAGE NOTE >>>>>>>> <<<<<<<< TRIAGE/OUTCOME >>>>>>>> Guideline Title: Chest Pain Recommended Disposition: Activate EMS 911 Original Inclination: Seek Care in ER Intended Action: Seek care in ER Physician Contacted: No Chest pain spreading to the shoulders, neck, jaw, in one or both arms, stomach or back lasting 5 or more minutes now or within the last hour. Pain is NOT associated with taking a deep breath or a productive cough, movement, or touch to a localized area. ? YES NDITURE REQUISITION CLERK documented in this encounter Plan of Treatment Not on file documented as of this encounter Visit Diagnoses Not on filedocumented in this encounter Additional Health Concerns Infection Onset Date Last Indicated Resolved Time MRSA Comment:Resolved 07/30/2018, Infection Prevention Nares 12/15/15 12/16/2015 12/16/2015 07/30/2018 10:47 AM EXPENDITURE REQUISITION CLERK R/O COVID-19 03/01/2020 03/01/2020 03/03/2020 1:01 AM CDT documented as of this encounter Care Teams Associate Professor Of Theology Relationship Specialty Start Date End Date Randy Ren MD [address], [place] [address] PCP - General Family Practice 01/25/15 documented as of this encounter
--- OUTSIDE RECORDS SUMMARY | 2024-11-14 18:59 | XMS_ITS | Encounter Summary ---
Author Organization [facility] Address [address] [place] [address] Care Team Providers Care Motorcycle Police Officer Name Role Phone Randy Ren MD Primary Care Provider [phone] Encounter Details Date Type Department Care Team (Latest Contact Info) Description 11/12/2003 Outpatient Historical [facility] [place] [address] [place] [phone] Cachorro Mackay MD [address] [place] [phone] HYPOGLYCEMIA NOS (Primary Dx); POLYURIA Social History Tobacco Use Types Packs/Day Years Used Date Smoking Tobacco: Never Assessed Comments Unknown Sex and Gender Information Value Date Recorded Sex Assigned at Not on file Legal Sex Female 6:05 AM BEAUTY ADVISOR Gender Identity Not on file Sexual Orientation Not on file documented as of this encounter Plan of Treatment Not on file documented as of this encounter Visit Diagnoses Diagnosis Hypoglycemia, unspecified- Primary Polyuria documented in this encounter Additional Health Concerns Infection Onset Date Last Indicated Resolved Time MRSA Comment:Resolved 07/30/2018, Infection Prevention Nares 12/15/15 12/16/2015 12/16/2015 07/30/2018 10:47 AM BEAUTY ADVISOR R/O COVID-19 03/01/2020 03/01/2020 03/03/2020 1:01 AM CDT documented as of this encounter Care Teams Motorcycle Police Officer Relationship Specialty Start Date End Date Randy Ren MD [address] [place] [address] PCP - General Family Practice 01/25/15 documented as of this encounter
--- OUTSIDE RECORDS SUMMARY | 2024-11-14 19:00 | XMS_ITS | Encounter Summary ---
Author Organization [facility] Address [address] [place] [address] Care Team Providers Care Security Operations Manager Name Role Phone Randy Ren MD Primary Care Provider [phone] Encounter Details Date Type Department Care Team (Latest Contact Info) Description 04/07/2004 Outpatient Historical [facility] Medicine [place] [address] [phone] Gregoria Olivarez MD [address] [place] [address] ACUTE TONSILLITIS (Primary Dx); GI SYSTEM SYMPTOMS OTHER; HYPERTENSION NOS Social History Tobacco Use Types Packs/Day Years Used Date Smoking Tobacco: Never Assessed Comments Unknown Sex and Gender Information Value Date Recorded Sex Assigned at Not on file Legal Sex Female 6:05 AM HELP DESK ANALYST Gender Identity Not on file Sexual Orientation Not on file documented as of this encounter Plan of Treatment Not on file documented as of this encounter Visit Diagnoses Diagnosis Acute tonsillitis- Primary Other symptoms involving digestive system(787.99) Other symptoms involving digestive system Unspecified essential hypertension documented in this encounter Additional Health Concerns Infection Onset Date Last Indicated Resolved Time MRSA Comment:Resolved 07/30/2018, Infection Prevention Nares 12/15/15 12/16/2015 12/16/2015 07/30/2018 10:47 AM HELP DESK ANALYST R/O COVID-19 03/01/2020 03/01/2020 03/03/2020 1:01 AM CDT documented as of this encounter Care Teams Security Operations Manager Relationship Specialty Start Date End Date Randy Ren MD [address], [place] [address] PCP - General Family Practice 01/25/15 documented as of this encounter
--- OUTSIDE RECORDS SUMMARY | 2024-11-14 19:00 | XMS_ITS | Encounter Summary ---
Author Organization [facility] Address [address] [place] [address] Care Team Providers Care Maintenance Shop Manager Name Role Phone Randy Ren MD Primary Care Provider [phone] Encounter Details Date Type Department Care Team (Latest Contact Info) Description 01/03/2004 Outpatient Historical [facility] Medicine [place] [address] [phone] Gregoria Olivarez MD [address] [place] [address] BACKACHE NOS (Primary Dx); Sprain lumbar region Social History Tobacco Use Types Packs/Day Years Used Date Smoking Tobacco: Never Assessed Comments Unknown Sex and Gender Information Value Date Recorded Sex Assigned at Not on file Legal Sex Female 6:05 AM ALIGNMENT TECHNICIAN Gender Identity Not on file Sexual Orientation Not on file documented as of this encounter Plan of Treatment Not on file documented as of this encounter Visit Diagnoses Diagnosis Backache, unspecified- Primary Sprain lumbar region Sprain of lumbar region documented in this encounter Additional Health Concerns Infection Onset Date Last Indicated Resolved Time MRSA Comment:Resolved 07/30/2018, Infection Prevention Nares 12/15/15 12/16/2015 12/16/2015 07/30/2018 10:47 AM ALIGNMENT TECHNICIAN R/O COVID-19 03/01/2020 03/01/2020 03/03/2020 1:01 AM CDT documented as of this encounter Care Teams Maintenance Shop Manager Relationship Specialty Start Date End Date Randy Ren MD [address] [place] [address] PCP - General Family Practice 01/25/15 documented as of this encounter
--- OUTSIDE RECORDS SUMMARY | 2024-11-14 19:00 | XMS_ITS | Encounter Summary ---
Author Organization [facility] Address [address] [place] [address] Care Team Providers Care Ski Patrol Director Name Role Phone Randy Ren MD Primary Care Provider [phone] Encounter Details Date Type Department Care Team (Latest Contact Info) Description 02/08/2004 Outpatient Historical [facility] [place] [address] [place] [address] Gregoria Olivarez MD [address] [place] [address] LUMBAGO (Primary Dx) Social History Tobacco Use Types Packs/Day Years Used Date Smoking Tobacco: Never Assessed Comments Unknown Sex and Gender Information Value Date Recorded Sex Assigned at Not on file Legal Sex Female 6:05 AM MOTORCYCLE REPAIR SHOP SUPERVISOR Gender Identity Not on file Sexual Orientation Not on file documented as of this encounter Plan of Treatment Not on file documented as of this encounter Visit Diagnoses Diagnosis Lumbago- Primary documented in this encounter Additional Health Concerns Infection Onset Date Last Indicated Resolved Time MRSA Comment:Resolved 07/30/2018, Infection Prevention Nares 12/15/15 12/16/2015 12/16/2015 07/30/2018 10:47 AM MOTORCYCLE REPAIR SHOP SUPERVISOR R/O COVID-19 03/01/2020 03/01/2020 03/03/2020 1:01 AM CDT documented as of this encounter Care Teams Ski Patrol Director Relationship Specialty Start Date End Date Randy Ren MD [address] [place] [address] PCP - General Family Practice 01/25/15 documented as of this encounter
--- OUTSIDE RECORDS SUMMARY | 2024-11-14 19:00 | XMS_ITS | Encounter Summary ---
Author Organization [facility] Address [address] [place] [address] Care Team Providers Care Channel Rebuilder Name Role Phone Randy Ren MD Primary Care Provider [phone] Encounter Details Date Type Department Care Team (Latest Contact Info) Description 02/04/2004 Outpatient Historical [facility] Imaging Services [address] [place] [address] Gregoria Olivarez MD [address] [place] [address] LUMBAGO (Primary Dx) Social History Tobacco Use Types Packs/Day Years Used Date Smoking Tobacco: Never Assessed Comments Unknown Sex and Gender Information Value Date Recorded Sex Assigned at Not on file Legal Sex Female 6:05 AM BLOOD TESTER Gender Identity Not on file Sexual Orientation Not on file documented as of this encounter Plan of Treatment Not on file documented as of this encounter Visit Diagnoses Diagnosis Lumbago- Primary documented in this encounter Additional Health Concerns Infection Onset Date Last Indicated Resolved Time MRSA Comment:Resolved 07/30/2018, Infection Prevention Nares 12/15/15 12/16/2015 12/16/2015 07/30/2018 10:47 AM BLOOD TESTER R/O COVID-19 03/01/2020 03/01/2020 03/03/2020 1:01 AM CDT documented as of this encounter Care Teams Channel Rebuilder Relationship Specialty Start Date End Date Randy Ren MD [address] [place] [address] PCP - General Family Practice 01/25/15 documented as of this encounter
--- OUTSIDE RECORDS SUMMARY | 2024-11-14 19:00 | XMS_ITS | Encounter Summary ---
Author Organization [facility] Address [address] [place] [address] Care Team Providers Care Inspector Materials And Processes Name Role Phone Randy Ren MD Primary Care Provider [phone] Encounter Details Date Type Department Care Team (Latest Contact Info) Description 01/12/1999 Outpatient Historical [facility] [address] [place] [phone] Dontrell Cedillo MD NO ADDRESS ON FILE Abdominal pain, unspecified site (Primary Dx); Abnormal weight gain Social History Tobacco Use Types Packs/Day Years Used Date Smoking Tobacco: Never Assessed Comments Unknown Sex and Gender Information Value Date Recorded Sex Assigned at Not on file Legal Sex Female 6:05 AM PUNCH CARD OPERATOR Gender Identity Not on file Sexual Orientation Not on file documented as of this encounter Plan of Treatment Not on file documented as of this encounter Visit Diagnoses Diagnosis Abdominal pain, unspecified site- Primary Abnormal weight gain documented in this encounter Additional Health Concerns Infection Onset Date Last Indicated Resolved Time MRSA Comment:Resolved 07/30/2018, Infection Prevention Nares 12/15/15 12/16/2015 12/16/2015 07/30/2018 10:47 AM PUNCH CARD OPERATOR R/O COVID-19 03/01/2020 03/01/2020 03/03/2020 1:01 AM CDT documented as of this encounter Care Teams Inspector Materials And Processes Relationship Specialty Start Date End Date Randy Ren MD [address] [place] [address] PCP - General Family Practice 01/25/15 documented as of this encounter
--- OUTSIDE RECORDS SUMMARY | 2024-11-14 19:00 | XMS_ITS | Encounter Summary ---
Author Organization [facility] Address [address] [place] [address] Care Team Providers Care Separator Tender Name Role Phone Randy Ren MD Primary Care Provider [phone] Encounter Details Date Type Department Care Team (Latest Contact Info) Description 03/20/2004 Outpatient Historical [facility] Medicine [place] [address] [phone] Gregoria Olivarez MD [address] [place] [address] GASTRITIS/DUODEN NOS W/O HEMORRH (Primary Dx) Social History Tobacco Use Types Packs/Day Years Used Date Smoking Tobacco: Never Assessed Comments Unknown Sex and Gender Information Value Date Recorded Sex Assigned at Not on file Legal Sex Female 6:05 AM BRAZING MACHINE OPERATOR AUTOMATIC Gender Identity Not on file Sexual Orientation Not on file documented as of this encounter Plan of Treatment Not on file documented as of this encounter Visit Diagnoses Diagnosis Unspecified gastritis and gastroduodenitis without mention of hemorrhage- Primary documented in this encounter Additional Health Concerns Infection Onset Date Last Indicated Resolved Time MRSA Comment:Resolved 07/30/2018, Infection Prevention Nares 12/15/15 12/16/2015 12/16/2015 07/30/2018 10:47 AM BRAZING MACHINE OPERATOR AUTOMATIC R/O COVID-19 03/01/2020 03/01/2020 03/03/2020 1:01 AM CDT documented as of this encounter Care Teams Separator Tender Relationship Specialty Start Date End Date Randy Ren MD [address] [place] [address] PCP - General Family Practice 01/25/15 documented as of this encounter
--- OUTSIDE RECORDS SUMMARY | 2024-11-14 19:00 | XMS_ITS | Encounter Summary ---
Author Organization [facility] Address [address] [place] [address] Care Team Providers Care Tennis Court Attendant Name Role Phone Randy Ren MD Primary Care Provider [phone] Encounter Details Date Type Department Care Team (Late st Contact Info) Description 04/20/[address] [facility] Emergency Department [address] [place] [address] Arley Peres MD NO ADDRESS ON FILE TIETZE'S DISEASE (Primary Dx) Social History Tobacco Use Types Packs/Day Years Used Date Smoking Tobacco: Never Assessed Comments Unknown Sex and Gender Information Value Date Recorded Sex Assigned at Not on file Legal Sex Female 6:05 AM MACHINE INSPECTOR Gender Identity Not on file Sexual Orientation Not on file documented as of this encounter Plan of Treatment Not on file documented as of this encounter Visit Diagnoses Diagnosis Tietze's disease- Primary documented in this encounter Additional Health Concerns Infection Onset Date Last Indicated Resolved Time MRSA Comment:Resolved 07/30/2018, Infection Prevention Nares 12/15/15 12/16/2015 12/16/2015 07/30/2018 10:47 AM MACHINE INSPECTOR R/O COVID-19 03/01/2020 03/01/2020 03/03/2020 1:01 AM CDT documented as of this encounter Care Teams Tennis Court Attendant Relationship Specialty Start Date End Date Randy Ren MD [address] [address] PCP - General Family Practice 01/25/15 documented as of this encounter
--- OUTSIDE RECORDS SUMMARY | 2024-11-14 19:00 | XMS_ITS | Encounter Summary ---
Author Organization [facility] Address [address] [place] [address] Care Team Providers Care Health Insurance Specialist Name Role Phone Randy Ren MD Primary Care Provider Encounter Details Date Type Department Care Team (Latest Contact Info) Description 04/24/2004 Outpatient Historical [facility] Gastroenterology- [address] [place] [address] Nehemiah Rodríguez MD [address] [facility] [address] [place] [address] GI SYSTEM SYMPTOMS OTHER (Primary Dx) Social History Tobacco Use Types Packs/Day Years Used Date Smoking Tobacco: Never Assessed Comments Unknown Sex and Gender Information Value Date Recorded Sex Assigned at Not on file Legal Sex Female 6:05 AM PLACEMENT DIRECTOR Gender Identity Not on file Sexual Orientation Not on file documented as of this encounter Plan of Treatment Not on file documented as of this encounter Visit Diagnoses Diagnosis Other symptoms involving digestive system(787.99)- Primary Other symptoms involving digestive system documented in this encounter Additional Health Concerns Infection Onset Date Last Indicated Resolved Time MRSA Comment:Resolved 07/30/2018, Infection Prevention Nares 12/15/15 12/16/2015 12/16/2015 07/30/2018 10:47 AM PLACEMENT DIRECTOR R/O COVID-19 03/01/2020 03/01/2020 03/03/2020 1:01 AM CDT documented as of this encounter Care Teams Health Insurance Specialist Relationship Specialty Start Date End Date Randy Ren MD [address] [address] PCP - General Family Practice 01/25/15 documented as of this encounter
--- OUTSIDE RECORDS SUMMARY | 2024-11-14 19:00 | XMS_ITS | Encounter Summary ---
Author Organization [facility] Address [address] [place] [address] Care Team Providers Care Inbound Call Center Representative Name Role Phone Randy Ren MD Primary Care Provider [phone] Encounter Details Date Type Department Care Team (Latest Contact Info) Description 11/25/1997 Outpatient Historical [facility] [address] [place] [phone] Dontrell Cedillo MD NO ADDRESS ON FILE Metrorrhagia (Primary Dx) Social History Tobacco Use Types Packs/Day Years Used Date Smoking Tobacco: Never Assessed Comments Unknown Sex and Gender Information Value Date Recorded Sex Assigned at Not on file Legal Sex Female 6:05 AM STEAM FITTER Gender Identity Not on file Sexual Orientation Not on file documented as of this encounter Plan of Treatment Not on file documented as of this encounter Visit Diagnoses Diagnosis Metrorrhagia- Primary documented in this encounter Additional Health Concerns Infection Onset Date Last Indicated Resolved Time MRSA Comment:Resolved 07/30/2018, Infection Prevention Nares 12/15/15 12/16/2015 12/16/2015 07/30/2018 10:47 AM STEAM FITTER R/O COVID-19 03/01/2020 03/01/2020 03/03/2020 1:01 AM CDT documented as of this encounter Care Teams Inbound Call Center Representative Relationship Specialty Start Date End Date aRndy Ren MD [address], [place] [address] PCP - General Family Practice 01/25/15 documented as of this encounter
--- OUTSIDE RECORDS SUMMARY | 2024-11-14 19:00 | XMS_ITS | Encounter Summary ---
Author Organization [facility] Address [address] [place] [address] Care Team Providers Care Purification Operator Name Role Phone Randy Ren MD Primary Care Provider [phone] Encounter Details Date Type Department Care Team (Latest Contact Info) Description 01/31/2001 Outpatient Historical [facility] [place]AN[facility] [address] [place] [phone] Dontrell Cedillo MD NO ADDRESS ON FILE Irregular menstruation (Primary Dx); Dysmenorrhea Social History Tobacco Use Types Packs/Day Years Used Date Smoking Tobacco: Never Assessed Comments Unknown Sex and Gender Information Value Date Recorded Sex Assigned at Not on file Legal Sex Female 6:05 AM SOFTWARE ENGINEERING ASSOCIATE MANAGER Gender Identity Not on file Sexual Orientation Not on file documented as of this encounter Plan of Treatment Not on file documented as of this encounter Visit Diagnoses Diagnosis Irregular menstruation- Primary Irregular menstrual cycle Dysmenorrhea documented in this encounter Additional Health Concerns Infection Onset Date Last Indicated Resolved Time MRSA Comment:Resolved 07/30/2018, Infection Prevention Nares 12/15/15 12/16/2015 12/16/2015 07/30/2018 10:47 AM SOFTWARE ENGINEERING ASSOCIATE MANAGER R/O COVID-19 03/01/2020 03/01/2020 03/03/2020 1:01 AM CDT documented as of this encounter Care Teams Purification Operator Relationship Specialty Start Date End Date Randy Ren MD [address] [place] [address] PCP - General Family Practice 01/25/15 documented as of this encounter
--- OUTSIDE RECORDS SUMMARY | 2024-11-14 19:00 | XMS_ITS | Encounter Summary ---
Author Organization [facility] Address [address] [place] [address] Care Team Providers Care Laminating Machine Operator Name Role Phone Randy Ren MD Primary Care Provider [phone] Encounter Details Date Type Department Care Team (Latest Contact Info) Description 05/08/2004 Outpatient Historical [facility] Medicine [address] [phone] Gregoria Olivarez MD [address] [place] [address] ACUTE TONSILLITIS (Primary Dx) Social History Tobacco Use Types Packs/Day Years Used Date Smoking Tobacco: Never Assessed Comments Unknown Sex and Gender Information Value Date Recorded Sex Assigned at Not on file Legal Sex Female 6:05 AM PUDDLER PILE DRIVING Gender Identity Not on file Sexual Orientation Not on file documented as of this encounter Plan of Treatment Not on file documented as of this encounter Visit Diagnoses Diagnosis Acute tonsillitis- Primary documented in this encounter Additional Health Concerns Infection Onset Date Last Indicated Resolved Time MRSA Comment:Resolved 07/30/2018, Infection Prevention Nares 12/15/15 12/16/2015 12/16/2015 07/30/2018 10:47 AM PUDDLER PILE DRIVING R/O COVID-19 03/01/2020 03/01/2020 03/03/2020 1:01 AM CDT documented as of this encounter Care Teams Laminating Machine Operator Relationship Specialty Start Date End Date Randy Ren MD [address] [place] [address] PCP - General Family Practice 01/25/15 documented as of this encounter
--- OUTSIDE RECORDS SUMMARY | 2024-11-14 19:00 | XMS_ITS | Clinical Summary ---
Author Organization [facility] Address [address] [place] [address] Care Team Providers Care Real Estate Professor Name Role Phone Andrea Ren Primary Care Provider [phone] Allergies Active Allergy Reactions Criticality Noted Date Comments Methocarbamol Itching,Other (See Comments) Low 02/25/2019 Sulfa (Sulfonamide Antibiotics) Shortness of Breath/Wheezing High 09/08/2010 Trospium Abdominal Pain Low 05/06/2024 Low abdominal pain Unclassified Drug Shortness of Breath/Wheezing High 05/19/2015 Environmental, trees, mold ect. Medications cholecalciferol 1,250 mcg (50,000 unit) Capsule Take 1 Capsule (50,000 Units) by mouth every 7 days. 12 Capsule 0 2018 Active ondansetron (ZOFRAN ODT) 8 mg Tablet, Rapid DissolveIndicati ons:Nausea Dissolve 1 tablet on top of tongue then swallow with saliva every 8 hours as needed for nausea or vomiting 30 Tablet 0 2019 Active Blood-Glucose Meter Kit Use to check sugars BID. e11.9 1 Each 0 2019 Active azelastine (ASTELIN) 137 mcg/actuation nasal spray Administer 2 Sprays in each nostril 2 times daily. Angle bottle tip straight back and slightly outward, away from septum. 30 mL 6 2020 Active nortriptyline (PAMELOR) 25 mg capsule TAKE 3 CAPSULES BY MOUTH AT BEDTIME 2021 Active ARIPiprazole (ABILIFY) 20 mg tablet Take 20 mg by mouth daily. 2021 Active magnesium oxide 250 mg magnesium Tablet Take 250 mg by mouth. 2014 Active acetaminophen (TYLENOL) 500 mg tablet Take 500 mg by mouth every 6 hours as needed. 2016 Active OneTouch Ultra Test Strip USE TO CHECK BLOOD SUGARS TWICE A DAY E11.9 100 Strip 3 2022 Active Blood-Glucose Meter,Continuous (Dexcom G7 Baseball Scout) Use to check BG. 1 Each 2022 Active mupirocin (BACTROBAN) 2 % Ointment Apply to affected area daily. 15 Gram 2022 Active Additional Information Patient not taking.Reported on 11/05/2024 venlafaxine (EFFEXOR XR) 150 mg Extended Release 24 hour capsuleIndicatio ns:Current mild episode of major depressive disorder, unspecified whether recurrent Take 1 Capsule (150 mg) by mouth daily. Take with 75 mg capsule 90 Capsule 3 2022 Active benztropine (COGENTIN) 1 mg tablet Take 1 mg by mouth 2 times daily. 2023 Active nystatin (NYSTOP) 100,000 unit/gram powderIndication s:Candidal intertrigo Apply to affected area 2 times daily. 60 Gram 5 2023 Active polyethylene glycol 3350 (ClearLax) 17 gram/dose Powder Take 1 Scoop (17 Grams) by mouth 2 times daily. 510 Gram 2 2023 Active docusate sodium (COLACE) 100 mg capsule 2 CAPSULES BY MOUTH TWICE A DAY NEEDED FOR CONSTIPATION 120 Capsule 2023 Active atorvastatin (LIPITOR) 40 mg tabletIndication s:Type 2 diabetes mellitus with hyperglycemia, with long-term current use of insulin (CMS/HCC) Take 1 Tablet (40 mg) by mouth daily at bedtime. 100 Tablet 3 2023 Active cetirizine (ZyrTEC) 10 mg tablet Take 1 Tablet (10 mg) by mouth daily. 90 Tablet 3 2023 Active montelukast (SINGULAIR) 10 mg tablet Take 1 Tablet (10 mg) by mouth daily at bedtime. 100 Tablet 2 2023 Active EPINEPHrine (EPIPEN) 0.3 mg/0.3 mL Auto-Injector Inject 0.3 mL (0.3 mg) by intramuscular injection 1 time daily as needed for Anaphylaxis. 2 Each 2 2023 Active galcanezumab-gnl m (Emgality Pen) 120 mg/mL Pen InjectorIndicati ons:Chronic migraine without aura without status migrainosus, not intractable Inject 1 mL by subcutaneous injection every 30 days. 1 mL 11 2023 Active Motegrity 2 mg Tablet TAKE 1 TABLET(2 MG) BY MOUTH DAILY 90 Tablet 3 2023 Active estradioL (ESTRACE) 0.01% (0.1 mg/g) vaginal cream Insert 1 Gram vaginally see administration instructions. 42.5 Gram 11 2023 Active methenamine hippurate (HIPREX) 1 gram Tablet Take 1 Tablet (1,000 mg) by mouth 2 times daily. 60 Tablet 11 2023 Active fesoterodine SR 24 hour (TOVIAZ) 4 mg tablet Take 1 Tablet (4 mg) by mouth daily. 30 Tablet 11 2023 Active amLODIPine (NORVASC) 10 mg tabletIndication s:Essential hypertension Take 1 Tablet (10 mg) by mouth daily. 100 Tablet 3 2023 Active Additional Information Patient not taking.Reported on 11/05/2024 gabapentin (NEURONTIN) 400 mg capsuleIndicatio ns:Diabetic polyneuropathy associated with type 2 diabetes mellitus (CMS/HCC),Chroni c right-sided low back pain without sciatica Take 2 Capsules (800 mg) by mouth 3 times daily. 540 Capsule 3 2023 Active bi-level machineIndicatio ns:Obstructive sleep apnea Bi-level (E0470) at 14/10 cm/H2O with heated humidifier (E0562), MASK OF CHOICE, headgear(A7035), cushions (A7031) 1/1 month, (A7032) (A7033) 2 pair/1 month. Heated tubing A4604 1/3mo,water chamber A7046 1/6mo,filter disp A7038 2/mo,Reusable filter A7039 1/6mo, Chin strap A7036 a/6mo ENRIQUETA 99mo DX: VIVIAN (G47.33) 1 Each 2024 Active diclofenac sodium (VOLTAREN) 1 % gelIndications:C hronic left shoulder pain,Chronic right-sided low back pain with right-sided sciatica Apply 2 Grams to affected area 4 times daily. 300 Gram 1 2024 Active insulin glargine (Lantus Solostar U-100 Insulin) 100 unit/mL pen syringe Inject 85 Units by subcutaneous injection daily. 75 mL 3 07/06 Active Additional Information Patient taking differently: 45 UnitssubCUTTWO TIMES DAILY, Reported on 11/12/2024 HumaLOG KwikPen Insulin 100 unit/mL pen syringeIndicatio ns:Type 2 diabetes mellitus with hyperglycemia, with long-term current use of insulin ([facility]) Sliding Scale Instructions: Less than 100 = [...] daily dose 150 units. 45 mL 3 2024 Active metFORMIN (GLUCOPHAGE) 1,000 mg tabletIndication s:Type 2 diabetes mellitus with hyperglycemia, with long-term current use of insulin ([facility]) TAKE 1 TABLET (1 000 MG) BY MOUTH 2 TIMES DAILY WITH MEALS. 180 Tablet 1 2024 Active empagliflozin (Jardiance) 25 mg tabletIndication s:Type 2 diabetes mellitus with hyperglycemia, with long-term current use of insulin ([facility]) Take 1 Tablet (25 mg) by mouth daily in the morning. 90 Tablet 1 2024 Active glimepiride (AMARYL) 4 mg tabletIndication s:Type 2 diabetes mellitus with hyperglycemia, with long-term current use of insulin ([facility]) Take 1 Tablet (4 mg) by mouth 2 times daily. 180 Tablet 1 2024 Active baclofen (LIORESAL) 5 mg tabletIndication s:Chronic right-sided low back pain without sciatica Take 1 Tablet (5 mg) by mouth 3 times daily as needed for Pain. 270 Tablet 1 2024 Active fluconazole (DIFLUCAN) 150 mg tabletIndication s:Candidal intertrigo Take 1 Tablet (150 mg) by mouth daily. Repeat in 72 hours if symptoms have not resolved or improved. 2 Tablet 1 2024 Active omeprazole (PriLOSEC) 40 mg Capsule, Delayed Release(E.C.) TAKE 1 CAPSULE BY MOUTH TWICE A DAY 60 Capsule 3 2024 Active venlafaxine (EFFEXOR XR) 75 mg Extended Release 24 hour capsuleIndicatio ns:Current mild episode of major depressive disorder, unspecified whether recurrent TAKE 1 CAPSULE BY MOUTH DAILY FOR 30 DAYS. TAKE WITH 150MG FOR A DAILY TOTAL OF 225MG. 100 Capsule 2024 Active famotidine (PEPCID) 40 mg tabletIndication s:Gastroesophage al reflux disease without esophagitis,Epig astric abdominal pain TAKE 1 TABLET BY MOUTH AT BEDTIME 30 Tablet 11 2024 Active ferrous sulfate (FeroSuL) 325 mg (65 mg iron) tablet Take 1 Tablet (325 mg) by mouth every other day. With vitamin C 90 Tablet 3 2024 Active lancets (CartMomouch Delica Plus Lancet) 33 gauge Use to check BG 3x daily in case of cgm failure. 100 Each 2024 Active CALCIUM CARBONATE ORAL Take by mouth. Active tirzepatide (Mounjaro) 15 mg/0.5 mL Pen InjectorIndicati ons:Type 2 diabetes mellitus with hyperglycemia, with long-term current use of insulin ([facility]) Inject 0.5 mL (15 mg) by subcutaneous injection every 7 days. 2 mL 5 2024 Active Insulin [place], Disposable, (TechLITE Pen Needle) 32 gauge x 1/4 NeedleIndication s:Type 2 diabetes mellitus with hyperglycemia, with long-term current use of insulin ([facility]) Use to inject insulin 5x daily. 500 Each 3 2024 Active mometasone (NASONEX) 50 mcg/actuation [place], Non-AerosolIndic ations:Perennial allergic rhinitis Administer 2 Sprays in each nostril daily. 17 Gram 1 2024 Active rOPINIRole (REQUIP) 1 mg tablet TAKE 1 & 1/2 TO 2 TABLETS BY MOUTH 1 TO 2 HOURS BEFORE BEDTIME. 60 Tablet 5 2024 Active albuterol sulfate HFA 90 mcg/actuation aerosol inhalerIndicatio ns:Wheezing Take 2 Puffs by inhalation every 4 hours as needed for Shortness of Breath or Wheezing (cough). 8.5 Gram 1 2024 Active inhalational spacing device (Microchamber) SpacerIndication s:Wheezing For use with albuterol inhaler. 1 Each 2024 Active bumetanide (BUMEX) 1 mg tabletIndication s:Peripheral edema Take 1 Tablet (1 mg) by mouth 2 times daily. HOLD furosemide and HCTZ 60 Tablet 2024 Active nitroglycerin (NITROSTAT) 0.4 mg Tablet, SublingualIndica tions:Atypical chest pain Place 1 Tablet (0.4 mg) under tongue every 5 minutes as needed for Chest Pain. 25 Tablet 3 2024 Active Dexcom G7 Sensor DeviceIndication s:Type 2 diabetes mellitus with hyperglycemia, with long-term current use of insulin ([facility]) Replace every 10 days. 9 Each 3 2024 Active Linzess 290 mcg capsuleIndicatio ns:Irritable bowel syndrome without diarrhea,Other constipation Take 1 Capsule (290 mcg) by mouth daily before breakfast. For chronic constipation 90 Capsule 3 2024 Active hydrocortisone acetate (Anucort-HC) 25 mg SuppositoryIndic ations:Hemorrhoi ds, unspecified hemorrhoid type Insert 1 Suppository (25 mg) by rectum 2 times daily as needed for Itching. 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 60 Tablet 1 12/10 Active diclofenac sodium (VOLTAREN) 75 mg Tablet, Delayed Release (E.C.)Indication s:Arthritis of both hands Take 1 Tablet (75 mg) by mouth 2 times daily. 60 Tablet 5 2024 Active losartan (COZAAR) 50 mg tabletIndication s:Type 2 diabetes mellitus with hyperglycemia, with long-term current use of insulin ([facility]),Essent ial hypertension,Sta ge 3a chronic kidney disease ([facility]),Acute on chronic diastolic congestive heart failure ([facility]) Take 1 Tablet (50 mg) by mouth daily. 100 Tablet 3 2024 Active hydrOXYzine pamoate (VISTARIL) 50 mg capsule Take 1 capsule by mouth 4 times daily as needed for anxiety. 120 Capsule 0 11/04 Discontinued( Alternate therapy prescribed) nitroglycerin (NITROSTAT) 0.4 mg Tablet, SublingualIndica tions:Atypical chest pain PLACE 1 TABLET UNDER TONGUE EVERY 5 MINUTES NEEDED FOR CHEST PAIN 25 Tablet 3 11/04 Discontinued( Reorder) Blood-Glucose Sensor ([place] G7 Sensor) DeviceIndication s:Type 2 diabetes mellitus with hyperglycemia, with long-term current use of insulin ([facility]) Replace every 10 days. 9 Each 3 11/13 Discontinued linaCLOtide (Linzess) 290 mcg capsuleIndicatio ns:Irritable bowel syndrome without diarrhea,Other constipation Take 1 Capsule (290 mcg) by mouth daily before breakfast. For chronic constipation 90 Capsule 3 11/12 Discontinued lisinopriL (PRINIVIL) 5 mg tablet Take 1 Tablet (5 mg) by mouth daily. 30 Tablet 2 11/04 Discontinued( Alternate therapy prescribed) tirzepatide (Mounjaro) 12.5 mg/0.5 mL Pen InjectorIndicati ons:Type 2 diabetes mellitus with hyperglycemia, with long-term current use of insulin ([facility]) Inject 0.5 mL (12.5 mg) by subcutaneous injection every 7 days for 28 days. 2 mL 11/05 Additional Information Patient not taking.Reported on 11/05/2024 diclofenac sodium (VOLTAREN) 50 mg Tablet, Delayed Release (E.C.)Indication s:Arthritis of both hands Take 1 Tablet (50 mg) by mouth 2 times daily. 60 Tablet 2 11/12 Discontinued( Reorder) furosemide (LASIX) 20 mg tablet Take 1 Tablet (20 mg) by mouth 2 times daily for 7 days. 14 Tablet 11/03 cefdinir (OMNICEF) 300 mg capsule Take 1 Capsule (300 mg) by mouth every 12 hours for 7 days. 14 Capsule 11/03 bumetanide (BUMEX) 1 mg tabletIndication s:Peripheral edema Take 1 Tablet (1 mg) by mouth 2 times daily for 10 days. HOLD furosemide and HCTZ 20 Tablet 11/04 Discontinued( Reorder) losartan (COZAAR) 50 mg tablet Take 1 Tablet by mouth daily. 11/13 Discontinued( Reorder) Active Problems Problem Noted Date Diagnosed Date Hypervolemia 10/27/2024 Acute pharyngitis 10/27/2024 Hepatosplenomegaly 10/27/2024 Candidal intertrigo 09/10/2023 Stage 3a chronic kidney disease 09/10/2023 Thyroid nodule 06/05/2023 Overview (06/05/2023): Exam: US HEAD NECK TISSUES Date/Time of Exam: 12/25/2021 1:34 PM Reason For Exam: See Diagnosis. TECHNIQUE: Real-time color flow. COMPARISON: December 08, 2020. FINDINGS: Thyroid is normal in size. Parenchyma remains heterogeneous with multiple nodules present. Dominant nodules as characterized below. Right Thyroid Measures: 1.6 x 4.8 x 2.5 cm. Volume 9.3 mL. Left Thyroid Measures: 2.0 x 4.1 x 1.7 cm. Volume 6.8 mL. Isthmus Measures: 4.5 mm. Inferior isthmus nodule-cystic was measured as Lt inferior on prior. Measures 1.1 x 1.0 x 0.8 cm.. Cystic, anechoic, smoothly marginated. Wider than tall. None or large comet tail artifacts. ACR TIRADS 0, benign. Nodule 1: Right lobe superiorly measuring 1.3 cm. Smooth Anechoic None or large comet-tail artifacts [id number] Cystic or almost completely cystic. ACR TIRADS 0, benign Nodule 2: Right lobe interpolar region measuring 1.1 cm. This is grossly stable allowing previous measurement 9 mm. Ill-defined Hypoechoic None or large comet-tail artifacts [id number] Solid or almost completely solid. ACR TIRADS 4, moderately suspicious follow-up recommended greater than 1 cm. Nodule 3: Left lobe inferiorly measuring 1.0 cm. Ill-defined Anechoic None or large comet-tail artifacts [id number] Cystic or almost completely cystic. ACR TIRADS 0, benign. IMPRESSION: Grossly stable solid right thyroid lesion characterized ACR TIRADS 4, moderately suspicious, follow-up recommended greater than 1 cm. Additional cystic nodules characterized benign. 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 No change to medication Primary osteoarthritis of right shoulder 020 H/O fibromyalgia 08/19/2018 Chronic left shoulder pain 07/07/2018 Calcific tendinitis of left shoulder 05/19/2018 Fatigue 03/24/2018 Family history of breast cancer 02/10/2018 Family history of ovarian cancer 02/10/2018 Mixed incontinence urge and stress 01/02/2018 Emotional tension headache 07/10/2017 Balance problem 05/22/2017 Memory loss of unknown cause 05/22/2017 Has a tremor 05/22/2017 Rectocele 01/31/2017 Hepatic enlargement 01/14/2017 Hypovitaminosis [...] ciated with type 2 diabetes mellitus 03/17/2015 Irritable bowel syndrome without diarrhea 2014 Constipation 03/17/2015 Nasal turbinate hypertrophy (s/p submucous resection with outfracture) 11/25/2014 S/P nasal septoplasty 11/25/2014 S/P FESS (functional endoscopic sinus surgery) 0 11/25/2014 Essential hypertension 01/05/2014 Assessment & Plan (06/05/2023 1:26 PM EXECUTIVE DIRECTOR GLOBAL BRAND MARKETING): Stable and Controlled. No change to medication. DASH Diet handout provided. GERD (gastroesophageal reflux disease) 4 Class 3 severe obesity due t o excess calories with serious comorbidity and body mass index (BMI) of 40.0 to 44.9 in adult 01/05/2014 Assessment & Plan (06/05/2023 1:27 PM EXECUTIVE DIRECTOR GLOBAL BRAND MARKETING): Estimated body mass index is 45.35 kg/m as calculated from the following: Height as of this encounter: 5' 6 (1.676 m). Weight as of this encounter: 127.5 kg (281 lb).BMI 40 or above. Discussed role of morbid obesity in current health conditions and future risk morbidity/mortality. Counseled regarding the benefits of a low calorie, well-being balanced diet and daily exercise. Weight management options discussed. Heat intolerance 01/05/2014 Type 2 diabetes mellitus wit h hyperglycemia, with long-term current use of insulin 01/05/2014 Assessment & Plan (06/05/2023 2:02 PM EXECUTIVE DIRECTOR GLOBAL BRAND MARKETING): Suboptimal control. Recommend referral to clerk stenographer for DM and weight loss. Recommend increase of basal insulin to 68 units. Increase of Ozempic to 2 mg Lymphedema of leg 01/05/2014 Restless legs syndrome (RLS) 07/13/2013 VIVIAN on CPAP 01/06/2013 Resolved Problems Problem Noted Date Diagnosed Date Resolved Date Simple chronic bronchitis 01/02/2018 Right-sided low back pain wi th right-sided sciatica 07/12/2015 03/26/2018 Chronic daily headache 04/13/201504/08 Menorrhagia with irregular cycle 02/18/2015 07/26/2015 Irregular menses 12/13/2014 05/31/2015 Chronic ethmoidal sinusitis 11/25/2014 07/07/2019 Chronic sphenoidal sinusitis 11/25/2014 07/07/2019 Chronic frontal sinusitis 11/25/2014 Chronic maxillary sinusitis 11/25/2014 07/07/2019 Urinary incontinence 01/05/2014 016 Encounters Date Type Department Care Team Description 11/13/[address] [facility] [address] [phone] Danita Smith FNP Type 2 diabetes mellitus with hyperglycemia, with long-term current use of insulin (CMS/HCC) 11/12/2024 3:00 PM CDT Office Visit [facility] [address] [phone] Andrea Ren DO Peripheral edema (Primary Dx); Stage 3a chronic kidney disease (CMS/HCC); Hemorrhoids, unspecified hemorrhoid type; Diabetic polyneuropathy associated with type 2 diabetes mellitus; Migraine without aura and without status migrainosus, not intractable; Chronic right-sided low back pain with right-sided sciatica; Hypoxemia; Arthritis of both hands 11/11/[address] [facility] [address] [phone] Danita Smith FNP Irritable bowel syndrome without diarrhea; Other constipation 11/11/2024 Refill [facility] [address] [place] [phone] Ora De Anda PA Essential hypertension (Primary Dx); Type 2 diabetes mellitus with hyperglycemia, with long-term current use of insulin (CMS/HCC); Stage 3a chronic kidney disease (CMS/HCC); Acute on chronic diastolic congestive heart failure (CMS/HCC) 11/07/2024 Results Follow-Up [facility] [address] [address] [place] [phone] Danita Smith FNP CBC WITH DIFFERENTIAL, COMPREHENSIVE METABOLIC PANEL 11/06/2024 External Device Data [facility] ABSTRACTION Provider, Abstract 11/05/2024 1:50 PM CDT Office Visit [facility] Endocrinology [facility] [address] [place] [phone] Ora De Anda PA Type 2 diabetes mellitus with hyperglycemia, with long-term current use of insulin (CMS/HCC) (Primary Dx) 11/05/2024 11:25 AM CDT Office Visit [facility] [place] [address] [phone] Melissa Anand MD Encounter for gynecological examination without abnormal finding (Primary Dx); Breast cancer screening by mammogram; Essential hypertension; Class 3 severe obesity due to excess calories with serious comorbidity and body mass index (BMI) of 40.0 to 44.9 in adult 11/05/2024 External Device Data ST[facility] ABSTRACTION Provider, Abstract 11/05/2024 External Device Data [facility] ABSTRACTION Provider, Abstract 11/05/2024 Orders Only [facility] Health Information Management [place] [address] [place] [address] Provider, Abstract 11/05/[address] [phone] Andrea Ren DO 11/04/2024 5:10 PM CDT Office Visit [address] [phone] Danita Smith FNP Type 2 diabetes mellitus with hyperglycemia, with long-term current use of insulin (CMS/HCC) (Primary Dx); Stage 3a chronic kidney disease (CMS/HCC); Peripheral edema; Atypical chest pain 11/04/2024 External Device Data [facility] ABSTRACTION Provider, Abstract 11/04/2024 External Device Data [facility] ABSTRACTION Provider, Abstract 11/02/[address] [phone] Andrea Ren DO Information 10/29/2024 3:10 PM CDT Office Visit [address] [phone] Danita Smith FNP Stage 3a chronic kidney disease (CMS/HCC) (Primary Dx); Precordial chest pain; Acute pulmonary edema (CMS/HCC); Wheezing; Peripheral edema 10/27/2024 4:16 PM CDT - 10/27/2024 7:36 PM CDT Emergency [facility] Emergency Medicine [address] [place] [phone] Phill Marvin MD Other hypervolemia (Primary Dx); Acute pharyngitis, unspecified etiology; Hepatosplenomegaly Discharge Disposition: Home or Self Care 10/27/2024 Travel 10/27/[address] [phone] Andrea Ren DO Medication Assistance 10/26/2024 8:40 AM CDT Office Visit [address] [phone] Rohini Swann FNP Viral upper respiratory infection (Primary Dx); Sore throat 10/13/[address] [phone] Danita Smith FNP 10/13/[address] [phone] Andrea Ren DO Perennial allergic rhinitis 10/09/2024 Refill [facility] Endocrinology [facility] [address] [place] [phone] Maci Crowell MD Type 2 diabetes mellitus with hyperglycemia, with long-term current use of insulin ([facility]) (Primary Dx) 10/09/2024 Results Follow-Up [facility] Gastroenterology- [place] [address] [place] [phone] Corin De Leon, THERESA VITAMIN B12 LEVEL, IRON, TIBC, AND PERCENT SATURATION, FERRITIN 10/09/[address] [phone] Andrea Ren DO Medication Assistance 10/08/2024 3:20 PM CDT Office Visit [address] [phone] Andrea Ren DO Type 2 diabetes mellitus with hyperglycemia, with long-term current use of insulin ([facility]) (Primary Dx); Urinary pain; Hematuria, unspecified type; Arthritis of both hands; Memory loss or impairment; Iron deficiency anemia, unspecified iron deficiency anemia type; Chronic idiopathic constipation; Irritable bowel syndrome with mixed bowel habits; Gastroesophageal reflux disease, unspecified whether esophagitis present 10/08/2024 Orders Only Initial Department [address] [facility] [address] [place]: [place] [address] Provider, Historical 10/08/2024 Results Follow-Up [facility] [address] [phone] Andrea Ren DO POC URINALYSIS DIPSTICK AUTOMATED, BETA-AMYLOID 42/40 RATIO - AD DETECTION, URINE CULTURE, MISCELLANEOUS LAB TEST 10/07/2024 Refill [facility] Endocrinology [facility] [address] [place] [address] Ora De Anda PA 09/30/2024 Telephone [facility] Gastroenterology[address] [place] [phone] Corin De Leon NP Documentation Only 09/29/2024 Telephone [facility] [address] [place] [address] Ora De Anda PA Documentation Only (Diabetic shoes Medicaid pre-cert approved.) 09/28/[address] [facility] [address] [phone] Andrea Ren DO Chronic left shoulder pain; Chronic right-sided low back pain with right-sided sciatica 09/24/2024 10:30 AM CDT Office Visit [facility] Gastroenterology[address] [phone] Corin De Leon, THERESA Colon cancer screening (Primary Dx); Iron deficiency anemia, unspecified iron deficiency anemia type; Chronic idiopathic constipation; Irritable bowel syndrome with mixed bowel habits; Gastroesophageal reflux disease, unspecified whether esophagitis present 09/23/2024 [facility] [address] [phone] Danita Smith FNP Gastroesophageal reflux disease without esophagitis; Epigastric abdominal pain 09/14/2024 [facility] [address] [phone] Danita Smith FNP Gastroesophageal reflux disease without esophagitis; Epigastric abdominal pain; Current mild episode of major depressive disorder, unspecified whether recurrent 09/01/2024 [facility] Gastroenterology[place] [address] [place] [phone] Corin De Leon NP 08/25/2024 [facility] Endocrinology [facility] [address] [place] [phone] Ora De Anda PA 08/25/2024 [facility] [address] [phone] Andrea Ren DO Chronic left shoulder pain; Chronic right-sided low back pain with right-sided sciatica; Perennial allergic rhinitis; Candidal intertrigo from Last 3 Months Immunizations Immunization Administration Dates Next Due (ADACEL/BOOSTRIX)(10 YR UP) TDAP VACCINE, 0.5ML, IM 04/29/2015 (PFIZER)(12 YR UP) COVID-19 VACCINE - EMERGENCY USE AUTHORIZATION, MRNA, [id number](PF) 30 MCG/0.3 ML IM SUSP 03/09/2021,02/09/2021 (PNEUMOVAX 23)(50 YRS UP) PN EUMOCOCCAL POLYSACCHARIDE (PPV23) 0.5 ML, IM 04/05/2023 Hepatitis A Vaccine 07/23/2006,02/19/2006,2005 Hepatitis B Vaccine 07/23/2006,02/19/2006,2005 INFLUENZA VACCINE QUADRIVALE NT 3 YR UP PF IM 04/05/2023,03/29/2022,04/27/2021,03/24,03/27/2019,05/02/2018,03/29/2017 ,05/02/2016 INFLUENZA VACCINE QUADRIVALE NT 6 MOS UP PF IM 04/05/2023,03/29/2022,03/24/2020 INFLUENZA VACCINE TRIVALENT SPLIT VIRUS, (6 MOS UP), 0.5ML (PF), IM 03/19/2024 Influenza Seasonal Unspecifi ed Formulation IM 03/31/2021,04/07/2014 Influenza Vaccine Quad Split 3+ Yrs Im 5 Influenza Vaccine Split 3+ Yrs PF IM 09/14/2010 Family History Medical History Relation Name Comments Healthy Brother Other Daughter Lung Cancer Father Pancreatic Cancer Maternal Uncle Heart Disease Mother High Cholesterol Mother Hypertension Mother Other Mother Stroke Mother Thyroid Disease Mother Breast Cancer Paternal Cousin 1 Breast Cancer Paternal Cousin 2 Ovarian Cancer Paternal Cousin 2 Other Sister 1 Respiratory Disease Sister 1 Thyroid Disease Sister 2 Healthy Son 1 Healthy Son 2 Cancer Neg Hx Cancer - Other Neg Hx Colon Cancer Neg Hx Melanoma Neg Hx Uterine or Endometrial Cancer, Not Including Cervical Neg Hx Relation Name Status Comments Brother Alive Daughter Alive Father Maternal Uncle Mother Alive Paternal Cousin 1 Paternal Cousin 2 Sister 1 Alive Sister 2 Alive Son 1 Alive Son 2 Alive Social History Tobacco Use Types Packs/Day Years Used Date Smoking Tobacco: Former Cigarettes Q uit: 09/08/1988 Passive Smoke Exposure: Past Smokeless Tobacco: Never Tobacco Cessation:Counseling Given: Yes Alcohol Use Standard Drinks/Week Comments No 0 (1 standard drink = 0.6 oz pur e alcohol) Utility Needs Answer Date Recorded In the past 12 months has [employer], [employer], or water [employer] threatened to shut off services in your [...] often do you attend chur ch or rastafarian services? 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[employer] Gender Identity Not on file Sexual Orientation Not on file Last Filed Vital Signs [...] Mass Index 43.93 11/12/2024 3:28 PM CDT Plan of Treatment Upcoming Encounters Date Type Department Care Team (Late st Contact Info) Description 11/25/2024 11:40 AM CDT Office Visit [facility] Medicine [place] [address] [place] [phone] Andrea Ren DO [address] [place] [phone] 12/02/2024 3:00 PM CDT Office Visit [facility] Headache Management [place] [address] [place] [address] Nataliia Gallegos, RABBIT BREEDER [address] [address] 12/17/2024 11:00 AM CDT Appointment [facility] Pulmonary Function Testing [address] [address] [place] [address] Andrea Ren DO [address] [place] [phone] 12/17/2024 1:10 PM CDT Office Visit [facility] Family Medicine [place] [address] [place] [phone] Danita Smith, RABBIT BREEDER [address] [place] [phone] 02/03/2025 10:00 AM CDT Office Visit [facility] Urology- [place] [address] Entrance B, 3rd [place] [address] Kylie Villafuerte NP [address] [place] [address] 03/26/2025 11:10 AM CDT Appointment [facility] [address] [place] [address] Melissa Anand MD [address] [place] [address] 03/30/2025 11:00 AM CDT Office Visit [facility] Gastroenterology- [place] 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 [employer] Office Visit [facility] [address] [place] [address] Dorys aCno, RABBIT BREEDER [address] [facility] [address] [place] [address] 08/25/2025 8:00 AM CDT Hospital Encounter [facility] [address] [place] [address] Aayush Sofia MD [address] [facility] [address] [place] [phone] 08/25/2025 8:00 AM CDT - 08/25/2025 8:20 AM CDT Surgery [facility] [address] [place] [address] Aayush Sofia MD [phone] [place] [address] COLONOSCOPY 11/11/2025 10:50 AM CDT Office Visit [facility] Gopal James Gibson [address] [place] [phone] Melissa Anand MD [address] [place] [address] Scheduled Procedures Name Priority Associated Diagnoses Date/Ti me COLONOSCOPY Iron deficiency anemia, unspecified iron deficiency anemia type Chronic idiopathic constipation Colon cancer screening 08/25/2025 8:00 AM CDT Health Maintenance Due Date Last Done Comments HEPATITIS B VACCINES (1 of 3 - 19+ 3-dose series) 1989 07/23/2006, 02/19/2006, 01/18/2006 FIT-DNA Q 3 years 11/21/2015 Flex Sig/CT Colonography Q 5 years 11/21/2015 FIT/FOBT Q 1 year 07/31/2018 07/31/2017 ZOSTER VACCINE (1 of 2) 2020 COVID-19 Vaccine (2023-2 5 season) 2024 03/09/2021, 02/09/2021 DIABETES: A1C (Auto Order) 01/30/202510/30, 10/08/2024, 07/02/2024, Additional history exists BREAST CANCER SCREENING 03/26/2025 03/26/20, 03/25/2023, 03/21/2022, Additional history exists DIABETES ANNUAL FOOT EXAM 04/28/20252023, 03/19/2024, 02/14/2023, Additional history exists DTAP/TDAP/TD VACCINES (2 - T d or Tdap) 04/29/2025 04/29/2015 DIABETES HBA1C Q 6 MONTHS 05/02/20252024, 10/08/2024, 07/02/2024, Additional history exists DIABETES ANNUAL RETINAL EXAM 05/06/2025, 05/02/2023, 05/01/2022, Additional history exists COLORECTAL SCREENING 06/16/2025 06/16/2024, 06/16/2024, 11/21/2018, Additional history exists Colorectal Cancer Screening 06/16/2025 DIABETES MICROALBUMIN ANNUAL SCREEN 07/02/2025 07/02/2024, 11/01/2023, 09/10/2023, Additional history exists LDL CHOLESTEROL ANNUAL 10/31/2025 , 10/30/2024, 07/02/2024, Additional history exists INFLUENZA VACCINE Completed 03/19/2024, , 04/05/2023, Additional history exists KHE uACR (Auto Order) Completed 07/02/2024 , 11/01/2023, 09/10/2023, Additional history exists Medicare Advantage ([place]) Preventative Visit/Annual Wellness Visit Completed 11/05/2024, 07/02/2024, 12/25/2023, Additional history exists KHE eGFR (Auto Order) Completed 11/12/2024 , 11/04/2024, 11/02/2024, Additional history exists Medical Devices Implanted Type Area Bar Welder Device Identifier Shelf Expiration Date Model / Serial / Lot Hemostatic Gelfoam Powder 1gm [id number] - Sna Implanted:Qty: 1 on 01/03/2016 by Thiago Teran MD Hemostatic Right: Spine Lumbar PFIZER- PHARM 06/16/2018 [id number] / NA / [id number] Hemostatic Gelfoam Spng 12-7mm [id number] - Csc - Sna Implanted:Qty: 1 on 01/03/2016 by Thiago Teran MD Hemostatic Right: Spine Lumbar PFIZER- PHARM 04/16/2018 [id number] / NA / [id number] Procedures Procedure Name Priority Date/Time Associated Diagnosis Comments BASIC METABOLIC PANEL Routine 11/12/2024 4:28 PM CDT Stage 3a chronic kidney disease (CMS/HCC) CBC WITH DIFFERENTIAL Routine 11/12/2024 4:28 PM CDT Stage 3a chronic kidney disease (CMS/HCC) COMPREHENSIVE METABOLIC PANEL Routine 11/04/2024 5:50 PM CDT Type 2 diabetes mellitus with hyperglycemia, with long-term current use of insulin (CMS/HCC) Stage 3a chronic kidney disease (CMS/HCC) CBC WITH DIFFERENTIAL Routine 11/04/2024 5:50 PM CDT Type 2 diabetes mellitus with hyperglycemia, with long-term current use of insulin (CMS/HCC) Stage 3a chronic kidney disease (CMS/HCC) COMPREHENSIVE METABOLIC PANEL Routine 11/02/2024 10:14 AM CDT COMPREHENSIVE METABOLIC PANEL Routine 11/01/2024 10:13 AM CDT COMPREHENSIVE METABOLIC PANEL Routine 10/31/2024 10:13 AM CDT LIPID PANEL Routine 10/31/2024 COMPREHENSIVE METABOLIC PANEL Routine 10/30/2024 10:12 AM CDT ECHO COMPLETE Routine 10/30/2024 10:11 AM CDT LIPID PANEL Routine 10/30/2024 HEMOGLOBIN A1C Routine 10/30/2024 PROTIME-INR Routine 10/30/2024 COMPREHENSIVE METABOLIC PANEL Routine 10/29/2024 10:12 AM CDT TROPONIN 2 HR, 5TH GEN Timed Study 10/27/2024 6:35 PM CDT COVID-19 ANTIGEN Stat 10/27/2024 6:17 PM CDT INFLUENZA VIRUS A AND B, ANTIGEN DETECTION Stat 10/27/2024 6:17 PM CDT CTA CHEST W AND/OR WO CONTRAST Stat 10/27/2024 6:12 PM CDT EKG 12-LEAD Stat 10/27/2024 5:55 PM CDT DRUG SCREEN, URINE Stat 10/27/2024 5: 36 PM CDT URINALYSIS W/REFLEX MICROSCOPIC Stat 10/27/2024 5:36 PM CDT XR CHEST PA OR AP 1 VW Stat 10/27/2024 4:38 PM CDT TROPONIN BASELINE, 5TH GEN Stat 10/27/2024 4:30 PM CDT MAGNESIUM LEVEL Stat 10/27/2024 4:30 PM CDT C-REACTIVE PROTEIN Stat 10/27/2024 4: 30 PM CDT LACTIC ACID Stat 10/27/2024 4:30 PM CDT BRAIN NATRIURETIC PEPTIDE, BNP OR PROBNP Stat 10/27/2024 4:30 PM CDT COMPREHENSIVE METABOLIC PANEL Stat 10/27/2024 4:30 PM CDT D-DIMER Stat 10/27/2024 4:30 PM CDT PTT Stat 10/27/2024 4:30 PM CDT PROTIME-INR Stat 10/27/2024 4:30 PM CDT SEDIMENTATION RATE Stat 10/27/2024 4: 30 PM CDT CBC WITH DIFFERENTIAL Stat 10/27/2024 4:30 PM CDT POC RAPID STREP A ANTIGEN Routine 10/26/2024 9:37 AM CDT Sore throat POC URINALYSIS DIPSTICK AUTOMATED Routine 10/08/2024 4:50 PM CDT Urinary pain Hematuria, unspecified type [facility] MISCELLANEOUS TEST Routine 10/08/2024 4:42 PM CDT MISCELLANEOUS LAB TEST Routine 10/08/2024 4:42 PM CDT Memory loss or impairment HEMOGLOBIN A1C Routine 10/08/2024 4:42 PM CDT Type 2 diabetes mellitus with hyperglycemia, with long-term current use of insulin ([facility]) FERRITIN Routine 10/08/2024 4:42 PM CDT Iron deficiency anemia, unspecified iron deficiency anemia type Chronic idiopathic constipation Irritable bowel syndrome with mixed bowel habits Gastroesophageal reflux disease, unspecified whether esophagitis present IRON, TIBC, AND PERCENT SATURATION Routine 10/08/2024 4:42 PM CDT Iron deficiency anemia, unspecified iron deficiency anemia type Chronic idiopathic constipation Irritable bowel syndrome with mixed bowel habits Gastroesophageal reflux disease, unspecified whether esophagitis present VITAMIN B12 LEVEL Routine 10/08/2024 4:4 2 PM CDT Iron deficiency anemia, unspecified iron deficiency anemia type Chronic idiopathic constipation Irritable bowel syndrome with mixed bowel habits Gastroesophageal reflux disease, unspecified whether esophagitis present BETA-AMYLOID 42/40 RATIO - AD DETECTION Routine 10/08/2024 4:42 PM CDT Memory loss or impairment URINE CULTURE Routine 10/08/2024 4:42 PM CDT Urinary pain Hematuria, unspecified type MICROALBUMIN/CREATINI NE RATIO, RANDOM UR Routine 07/02/2024 11:52 AM 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 DIRECTOR [employer] Type 2 diabetes mellitus with hyperglycemia, with long-term current use of insulin ([facility]) COLONOSCOPY REPORT 06/16/2024 10 :00 AM EXECUTIVE DIRECTOR [employer] HM DIABETES EYE EXAM Routine 05/06/2024 11:09 AM EXECUTIVE DIRECTOR [employer] MAMMO 3D JAYLON SCREEN BILAT W OR WO CAD Routine 03/26/2024 11:36 AM CDT Breast cancer screening by mammogram POC OCCULT BLOOD UP TO 3 CARDS Routine 07/31/2017 11:51 AM 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 WBC 10.9(H) 3.8 - 10.8 Thousand/u L [...] [facility] Comment: Test Performed at: [facility] [phone] Harlan Guidry MD Blood 11/12/2024 4:28 PM CDT 11/13/2024 4:50 AM CDT Andrea Ren DO HEMATOLOGY ORDERABLES Final R esult [facility] [phone] [facility] [address] [place] [phone] * (ABNORMAL) BASIC METABOLIC PANEL (11/12/2024 4:28 [...] [place] BUN/CREAT RATIO SEE NOTE: 6 - (calc) [facility] Comment: Not Reported: BUN and Creatinine are within reference range. SODIUM 139 135 - 146 mmol/L [facility] POTASSIUM 4.1 3.5 - 5.3 mmol/L [facility] CHLORIDE 100 98 - 110 mmol/L [facility] CO2 26 20 - 32 mmol/L [facility] CALCIUM 9.5 8.6 - 10.4 mg/dL [facility] Comment: Test Performed at: [facility] [address] [place] [address] Harlan Guidry MD Blood 11/12/2024 4:28 PM CDT 11/13/2024 4:50 AM CDT Andrea Ren DO CHEMISTRY ORDERABLES Final Re sult [facility] [phone] [facility] [address] [place] [address] * (ABNORMAL) COMPREHENSIVE METABOLIC PANEL (11/04/2024 5:50 PM CDT) Only the most recent of7 resultswithin the time period is included. GLUCOSE 236(H) 65 - 99 mg/dL [facility] Comment: Fasting reference interval For someone without known diabetes, a glucose value >125 mg/dL indicates that they may have diabetes and this should be confirmed with a follow-up test. BUN 30(H) 7 - 25 mg/dL [facility] CREATININE 1.19(H) 0.50 - 1.03 mg/dL [facility] GFR 55(L) > OR = 60 mL/min/1.7 3m2 [facility] BUN/CREAT RATIO 25(H) 6 - 22 (calc) [facility] SODIUM 131(L) 135 - 146 mmol/L [facility] POTASSIUM 4.2 3.5 - 5.3 mmol/L [facility] CHLORIDE 95(L) 98 - 110 mmol/L [facility] CO2 25 20 - 32 mmol/L [facility] CALCIUM 9.3 8.6 - 10.4 mg/dL [facility] TOTAL PROTEIN 8.2(H) 6.1 - 8.1 g/dL [facility] ALBUMIN 4.1 3.6 - 5.1 g/dL [facility] GLOBULIN 4.1(H) 1.9 - 3.7 g/dL (calc) [facility] ALBUMIN/GLOBULIN RATIO 1.0 1.0 - 2.5 (calc) [facility] BILIRUBIN TOTAL 0.3 0.2 - 1.2 mg/dL [facility] ALKALINE PHOSPHATASE 148 37 - 153 U/L [facility] AST 77(H) 10 - 35 U/L [facility] ALT 98(H) 6 - 29 U/L [facility] Comment: Test Performed at: [facility] [phone] Harlan Guidry MD Blood 11/04/2024 5:50 PM CDT 11/06/2024 5:40 AM CDT us Danita MOREIRA CHEMISTRY ORDERABLES Final Re sult [facility] [phone] [facility] [address] * LIPID PANEL (10/31/2024) Only the most recent of2 resultswithin the time period is included. ABSTRACTED CHOLESTEROL 147 ABSTRACTED TRIGLYCERIDE 142 ABSTRACTED HDL 22 ABSTRACTED LDL CALCULATED 86 Blood 10/31/2024 us Abstract Provider CHEMISTRY ORDERABLES Final Res ult * ECHO COMPLETE - CONTRAST AND STRAIN IF INDICATED (10/30/2024 10:11 AM CDT) us Abstract Provider US ORDERABLES Final Result * PROTIME-INR (10/30/2024) Only the most recent of2 resultswithin the time period is included. ABSTRACTED PROTIME 14.6 ABSTRACTED INR 1.07 Blood 10/30/2024 us Abstract Provider HEMATOLOGY ORDERABLES Final Re sult * HEMOGLOBIN A1C (10/30/2024) Only the most recent of2 resultswithin the time period is included. Pathologist [facility] ABSTRACTED HGB A1C 10.0 % Blood 10/30/2024 us Abstract Provider CHEMISTRY ORDERABLES Final Res ult * (ABNORMAL) TROPONIN 2 HR, 5TH GEN (10/27/2024 6:35 PM CDT) Pathologist [facility] TROPONIN T, 2 HR 5TH GEN 13(H) <=10 ng/L 10/27/2024 6:53 PM CDT [facility] DELTA 2HR TROPONIN T 1 See Interp. 10/27/2024 6:53 PM CDT [facility] Blood BLOOD SPECIMEN / Unknown Collection / Unknown 10/27/2024 6:35 PM CDT 10/27/2024 6:38 PM CDT Narrative [facility] - 10/27/2024 6:53 PM CDT Troponin elevated. Delta not changing. us Phill Marvin MD CHEMISTRY ORDERABLES Final Resu lt [facility] CLIA # [id number] [address] [place] [address] * COVID-19 ANTIGEN (10/27/2024 6:17 PM CDT) Pathologist [facility] COVID-19 ANTIGEN Presumptive Negative Presumptive Negative 10/27/2024 6:45 PM CDT [facility] Upper Respiratory ANTERIOR NARES SWAB / Unknown Collection / Unknown 10/27/2024 6:17 PM CDT 10/27/2024 6:30 PM CDT Narrative [facility] - 10/27/2024 6:45 PM CDT Gwen SARS antigen test has been authorized by FDA under an emergency use authorization (EUA) and has been authorized only for the detection of proteins from SARS-CoV-2 and influenza, not for any other viruses or pathogens. Gwen SARS Antigen ROBBI is intended for the simultaneous qualitative detection and differentiation of nucleocapsid protein antigen from SARS-CoV-2 directly from nasopharyngeal (TELEGRAPH INSTALLER) and nasal (NS) swab specimens collected from individuals who are suspected of respiratory viral infection consistent with COVID-19 by their healthcare provider within the first five (5) days of symptom onset when tested at least twice over three days with at least 48 hours between tests, or from individuals without symptoms or other epidemiological reasons to suspect COVID-19 when tested at least three times over five days with at least 48 hours between tests. This test is only authorized for the duration of the declaration that circumstances exist justifying the authorization of emergency use of in vitro diagnostics for detection and/or diagnosis of the virus that causes COVID-19 under Section 564(b)(1) of the Act, 21 U.S.C. 360bbb-3(b)(1), unless the authorization is terminated or revoked sooner. Negative results should be treated as presumptive and confirmed with a molecular assay, if necessary for patient care. Serial testing should be performed in individuals with negative results at least twice over three days (with 48 hours between tests) for symptomatic individuals or from individuals without symptoms or other epidemiological reasons to suspect COVID-19 when tested at least three times over five days with at least 48 hours between tests. us Phill Marvin MD MICROBIOLOGY - GENERAL ORDERABL ES Final Result [facility] CLIA # [id number] [address] [place] [id number] * INFLUENZA VIRUS A AND B, ANTIGEN DETECTION (10/27/2024 6:17 PM CDT) INFLUENZA A AG NOT DETECTED Not Detected 10/27/2024 6:45 PM CDT [facility] INFLUENZA B AG NOT DETECTED Not Detected 10/27/2024 6:45 PM CDT [facility] Upper Respiratory ENTIRE NASOPHARYNX / Unknown Collection / Unknown 10/27/2024 6:17 PM CDT 10/27/2024 6:30 PM CDT Narrative [facility] - 10/27/2024 6:45 PM CDT Negative results do not rule out infection. If clinically indicated, consider PCR testing which is more sensitive than antigen testing. If PCR testing is desired, consult with your local laboratory as sample recollection may be required. us Phill Marvin MD MICROBIOLOGY - GENERAL ORDERABL ES Final Result [id number] [address] [place] [address] * CTA CHEST W AND/OR WO CONTRAST (10/27/2024 6:12 PM CDT) Anatomical Region Laterality Modality Chest Computed Tomogra phy 10/27/2024 6:12 PM CDT Impressions 10/27/2024 6:21 PM CDT IMPRESSION: Please see below. Exam: CTA CHEST W AND/OR WO CONTRAST Date/Time of Exam: 10/27/2024 6:12 PM REASON FOR EXAM: Pulmonary embolism (PE) suspected, low to intermediate prob, positive D-dimer. DIAGNOSIS: See Reason for Exam. Technique: CTA of the chest was performed prior to and/or following the administration of intravenous contrast. Post-processing was performed, including sagittal and coronal reformations and 3-D reconstruction. Contrast (if used): 100 mL Isovue 300 Findings: Comparison is made to the prior examination performed 04/27/2016. Evaluation of the pulmonary arteries is significantly limited due to the limitations of contrast bolus timing and body habitus with nondiagnostic imaging of the subsegmental branches of the lung bases. There is no central, lobar, or proximal segmental filling defect. There is no evidence of acute right ventricular strain. The heart size is normal. Chronic changes are seen in the thoracic aorta. There is mild groundglass mosaic attenuation. No peripheral consolidation, pneumothorax, or pleural effusion is identified. The airways are patent. There is pulmonary vascular congestion. There are cystic lesions in the right thyroid gland with some calcification in the left thyroid gland, partially imaged. Severe hepatomegaly and hepatic steatosis is noted. The spleen appears enlarged but is incompletely evaluated. There is thoracic spondylosis. IMPRESSION: 1. No gross evidence of pulmonary embolus along for significant limitation to the examination as described above. Evaluation of the subsegmental branches, specifically in the lung bases is nondiagnostic. There are no secondary signs of pulmonary embolus. 2. Pulmonary vascular congestion. Groundglass mosaic attenuation of the lungs may indicate smaller where small vessel disease. 3. Severe hepatomegaly, partially imaged with suspected hepatic steatosis. Splenomegaly is suspected as well. Narrative Procedure Note Eduar Scott MD - 10/27/2024 IMPRESSION: Please see below. Exam: CTA CHEST W AND/OR WO CONTRAST Date/Time of Exam: 10/27/2024 6:12 PM REASON FOR EXAM: Pulmonary embolism (PE) suspected, low to intermediate prob, positive D-dimer. DIAGNOSIS: See Reason for Exam. Technique: CTA of the chest was performed prior to and/or following the administration of intravenous contrast. Post-processing was performed, including sagittal and coronal reformations and 3-D reconstruction. Contrast (if used): 100 mL Isovue 300 Findings: Comparison is made to the prior examination performed 04/27/2016. Evaluation of the pulmonary arteries is significantly limited due to the limitations of contrast bolus timing and body habitus with nondiagnostic imaging of the subsegmental branches of the lung bases. There is no central, lobar, or proximal segmental filling defect. There is no evidence of acute right ventricular strain. The heart size is normal. Chronic changes are seen in the thoracic aorta. There is mild groundglass mosaic attenuation. No peripheral consolidation, pneumothorax, or pleural effusion is identified. The airways are patent. There is pulmonary vascular congestion. There are cystic lesions in the right thyroid gland with some calcification in the left thyroid gland, partially imaged. Severe hepatomegaly and hepatic steatosis is noted. The spleen appears enlarged but is incompletely evaluated. There is thoracic spondylosis. IMPRESSION: 1. No gross evidence of pulmonary embolus along for significant limitation to the examination as described above. Evaluation of the subsegmental branches, specifically in the lung bases is nondiagnostic. There are no secondary signs of pulmonary embolus. 2. Pulmonary vascular congestion. Groundglass mosaic attenuation of the lungs may indicate smaller where small vessel disease. 3. Severe hepatomegaly, partially imaged with suspected hepatic steatosis. Splenomegaly is suspected as well. Phill Marvin MD CT ORDERABLES Final Result * EKG 12-LEAD (10/27/2024 5:55 PM CDT) Narrative Phill Marvin MD - 10/27/2024 5:55 PM CDT Phill Marvin MD 10/27/2024 6:55 PM EKG 12-LEAD Date/Time: 10/27/2024 5:55 PM Performed by: Phill Marvin MD Authorized by: Phill Marvin MD ECG interpreted by ED Physician in the absence of a pricing intern: yes Rate: ECG rate: 114 ECG rate assessment: tachycardic Rhythm: Rhythm Origin: sinus Hadley: QRS axis: Normal QRSTT: QRSTT changes: No Phill Marvin MD ECG ORDERABLES Final Result * (ABNORMAL) DRUG SCREEN, URINE (10/27/2024 5:36 PM CDT) [facility] CANNABINOIDS QUAL, URINE Negative Negative 10/27/2024 5:53 PM CDT [facility] PCP QUAL, URINE Negative Negative 5:53 PM CDT [facility] COCAINE QUAL URINE Negative Negative 2024 5:53 PM CDT [facility] METHAMPHETAMINE QUAL, URINE Negative Negative 10/27/2024 5:53 PM CDT [facility] OPIATE QUAL, URINE Negative Negative 2024 5:53 PM CDT [facility] AMPHETAMINE QUAL, URINE Negative Negative 10/27/2024 5:53 PM CDT [facility] BENZODIAZEPINE QUAL, URINE Negative Negative 10/27/2024 5:53 PM CDT [facility] TRICYCLICS QUAL, URINE Presumptive Positive(A) Negative 10/27/2024 5:53 PM CDT [facility] METHADONE QUAL, URINE Negative Negative 10/27/2024 5:53 PM CDT [facility] BARBITURATE QUAL, URINE Negative Negative 10/27/2024 5:53 PM CDT [facility] OXYCODONE QUAL, URINE Negative Negative 10/27/2024 5:53 PM CDT [facility] Urine URINE SPECIMEN OBTAINED BY CLEAN CATCH PROCEDURE / Unknown Collection / Unknown 10/27/2024 5:36 PM CDT 10/27/2024 5:36 PM CDT Narrative [facility] - 10/27/2024 5:53 PM CDT This test is a qualitative screen. The presumptive positive results should not be used for legal purposes. If confirmation of results is desired, the lab must be contacted without delay. Drug Screening Threshold Amphetamines 500 ng/mL Barbiturates 200 ng/mL Benzodiazepines 150 ng/mL Cocaine Metabolites 150 ng/mL Methamphetamine 500 ng/mL Methadone 200 ng/mL Opiates 100 ng/mL Oxycodone 100 ng/mL Phencyclidine 25 ng/mL THC Cannabinoids 50 ng/mL Tricyclic Antidepressants 300 ng/mL us Phill Marvin MD URINE ORDERABLES Final Result [facility] CLIA # [id number] [address] [place] [address] * (ABNORMAL) URINALYSIS WITH REFLEX MICROSCOPIC (10/27/2024 5:36 PM CDT) COLOR UA Yellow Pale to Dark Yellow 10/27/2024 5:38 PM CDT [facility] CLARITY UA Clear Clear 10/27/2024 5:38 PM CDT [facility] SPECIFIC GRAVITY UA 1.015 1.003 - 1.035 10/27/2024 5:38 PM CDT [facility] PH UA 6.5 5.0 - 8.0 10/27/2024 5:38 PM CDT [facility] LEUKOCYTE ESTERASE UA Negative Negative 10/27/2024 5:38 PM CDT [facility] NITRITE UA Negative Negative 10/27/2024 5:38 PM CDT [facility] PROTEIN UA Negative Negative 10/27/2024 5:38 PM CDT [facility] GLUCOSE UA 3+(A) Negative 10/27/2024 5:38 PM CDT [facility] KETONES UA Negative Negative 10/27/2024 5:38 PM CDT [facility] UROBILINOGEN UA 1.0 <2.0 mg/dL 5:38 PM CDT [facility] BILIRUBIN UA Negative Negative 10/27/2024 5:38 PM CDT [facility] BLOOD UA Negative Negative 10/27/2024 5:38 PM CDT [facility] Urine URINE SPECIMEN OBTAINED BY CLEAN CATCH PROCEDURE / Unknown Collection / Unknown 10/27/2024 5:36 PM CDT 10/27/2024 5:36 PM CDT Phill Marvin MD URINE ORDERABLES Final Result [facility] CLIA # [id number] [address] [place] [address] * XR CHEST PA OR AP 1 VW (10/27/2024 4:38 PM CDT) Anatomical Region Laterality Modality Chest Computed Radiogr aphy 10/27/2024 4:38 PM CDT Impressions 10/27/2024 4:43 PM CDT IMPRESSION: Please see below. Exam: XR CHEST PA OR AP 1 VW Date/Time of Exam: 10/27/2024 4:38 PM REASON FOR EXAM: Shortness of Breath SOB. DIAGNOSIS: See Reason for Exam. Findings: Comparison is made to the prior exam performed 09/28/2022 Lung volumes are slightly diminished. There is pulmonary vascular congestion with questionable trace interstitial edema/pneumonitis. There is no pneumothorax or pleural effusion. Heart size is within normal limits for portable AP technique and low lung volumes. The mediastinum is stable. Osseous thorax is grossly intact. IMPRESSION: Pulmonary vascular congestion and possible trace interstitial edema/pneumonitis. Narrative Procedure Note Eduar Scott MD - 10/27/2024 IMPRESSION: Please see below. Exam: XR CHEST PA OR AP 1 VW Date/Time of Exam: 10/27/2024 4:38 PM REASON FOR EXAM: Shortness of Breath SOB. DIAGNOSIS: See Reason for Exam. Findings: Comparison is made to the prior exam performed 09/28/2022 Lung volumes are slightly diminished. There is pulmonary vascular congestion with questionable trace interstitial edema/pneumonitis. There is no pneumothorax or pleural effusion. Heart size is within normal limits for portable AP technique and low lung volumes. The mediastinum is stable. Osseous thorax is grossly intact. IMPRESSION: Pulmonary vascular congestion and possible trace interstitial edema/pneumonitis. Result Audrey Marvin MD DIAGNOSTIC IMAGING ORDERABLES F inal Result * (ABNORMAL) TROPONIN BASELINE, 5TH GEN (10/27/2024 4:30 PM CDT) TROPONIN T, BASELINE 5TH GEN 12(H) <=10 ng/L 10/27/2024 4:54 PM CDT [facility] Blood Collection / Unknown 10/27/2024 4:30 PM CDT 10/27/2024 4:35 PM CDT Narrative [facility] - 10/27/2024 4:54 PM CDT Troponin elevated. Result Audrey Marvin MD CHEMISTRY ORDERABLES Final Resu lt [facility] CLIA # [id number] [address] [place] [address] [id number] * (ABNORMAL) LACTIC ACID (10/27/2024 4:30 PM CDT) LACTIC ACID 2.6(H) <=2.0 mmol/L 10/27/2024 4:54 PM CDT [facility] Blood BLOOD SPECIMEN / Unknown Collection / Unknown 10/27/2024 4:30 PM CDT 10/27/2024 4:35 PM CDT Result Audrey Marvin MD CHEMISTRY ORDERABLES Final Resu lt Performing Organization Address City/[facility]/ZIP Co de Phone Number [facility] CLIA # [id number] [address] [place] [address] * PTT (10/27/2024 4:30 PM CDT) Pathologist [facility] PTT 33.2 25.8 - 34.0 seconds 10/27/2024 4:52 PM CDT [facility] Blood Collection / Unknown 10/27/2024 4:30 PM CDT 10/27/2024 4:35 PM CDT us Phill Marvin MD HEMATOLOGY ORDERABLES Final Res ult Performing Organization Address [facility] Co de Phone Number [id number] [address] [place] [address] * (ABNORMAL) SEDIMENTATION RATE (10/27/2024 4:30 PM CDT) [facility] ESR (SEDIMENTATION RATE) 58(H) 0 - 30 mm/Hr 10/27/2024 4:54 PM CDT [facility] Blood Collection / Unknown 10/27/2024 4:30 PM CDT 10/27/2024 4:35 PM CDT Narrative [facility] - 10/27/2024 4:54 PM CDT Tube Lot: #[id number] Exp Date: 03/16/2026 SR 0125-1 EXP. 12/19/24 SR 0125-2 EXP. 12/19/24 us Phill Marvin MD HEMATOLOGY ORDERABLES Final Res ult Performing Organization Address City/[facility]/ZIP Co de Phone Number [facility] [id number] [address] [place] [address] * (ABNORMAL) D-DIMER (10/27/2024 4:30 PM CDT) [facility] D-DIMER QUANT 1.09(H) <0.50 ug/mL FEU 10/27/2024 4:52 PM CDT [facility] Blood Collection / Unknown 10/27/2024 4:30 PM CDT 10/27/2024 4:35 PM CDT Narrative [facility] - 10/27/2024 4:52 PM CDT D-Dimer assay cutoff value for exclusion of DVT and/or PE is <0.50 ug/mL FEU. As D-Dimer levels increase naturally with age, age stratification for patients over 50 is potentially more appropriate in determining whether a patient should undergo further evaluation for DVT and/or PE than a general cutoff of 0.50 ug/mL FEU. Clinical consideration is recommended. Age Stratified Cutoff Values: 50-60 years: 0.50-0.60 ug/mL FEU 61-70 years: 0.61-0.70 ug/mL FEU 71-80 years: 0.71-0.80 ug/mL FEU us Phill Marvin MD HEMATOLOGY ORDERABLES Final Res ult Performing Organization Address City/[facility]/ZIP Co de Phone Number [facility] CLIA # [id number] [address] [place] [address] * (ABNORMAL) C-REACTIVE PROTEIN (10/27/2024 4:30 PM CDT) [facility] CRP 38.6(H) <5.0 mg/L 10/27/2024 4:54 PM CDT [facility] Blood Collection / Unknown 10/27/2024 4:30 PM CDT 10/27/2024 4:35 PM CDT us Phill Marvin MD CHEMISTRY ORDERABLES Final Resu lt Performing Organization Address City/[facility]/ZIP Co de Phone Number [facility] CLIA # [id number] [address] [place] [phone] * (ABNORMAL) BRAIN NATRIURETIC PEPTIDE, BNP OR PROBNP (10/27/2024 4:30 PM CDT) Pathologist [facility] PROBNP, N TERMINAL 268(H) 0 - 125 pg/mL 10/27/2024 4:54 PM CDT [facility] Comment: INTERPRETIVE COMMENT based on diagnosis: Diagnostic NT pro-BNP cutoffs for Heart Failure in the absence of renal failure is suggested for the following ranges <75 years: <125 pg/mL >=75 years: <450 pg/mL Exclusionary rule out cut-point for Acute Decompensated Heart Failure(ADHF) All ages: <300 pg/mL Diagnostic NT pro-BNP cutoffs for Acute Decompensated Heart Failure(ADHF) in the absence of renal failure is suggested for the following ages <50 years: > 450 pg/mL 50-75 years: > 900 pg/mL >75 years: >1800 pg/mL Blood Collection / Unknown 10/27/2024 4:30 PM CDT 10/27/2024 4:35 PM CDT us Phill Marvin MD CHEMISTRY ORDERABLES Final Resu lt Performing Organization Address City/[facility]/ZIP Co de Phone Number [facility] CLIA # [id number] [address] [place] [address] [phone] * MAGNESIUM LEVEL (10/27/2024 4:30 PM CDT) [facility] MAGNESIUM 1.9 1.6 - 2.6 mg/dL 10/27/2024 4:54 PM CDT [facility] Blood Collection / Unknown 10/27/2024 4:30 PM CDT 10/27/2024 4:35 PM CDT us Phill Marvin MD CHEMISTRY ORDERABLES Final Resu lt Performing Organization Address City/[facility]/ZIP Co de Phone Number [facility] CLIA # [id number] [address] [place] [phone] * POC RAPID STREP A ANTIGEN (10/26/2024 9:37 AM CDT) [facility] RAPID STREP POC Negative Negative, Indeterminate [facility] INTERNAL KIT QC POC Pass Pass [facility] KIT LOT NUMBER POC [phone] [facility] KIT EXP DATE POC 10/10/25 [facility] READ METHOD POC Visual [facility] Upper Respiratory SPECIMEN FROM THROAT / Unknown 10/26/2024 9:37 AM CDT Rohini Swann RABBIT BREEDER POINT OF CARE TESTING Fi nal Result Performing Organization Address [facility]/ZIP Co de Phone Number [facility] CLIA# [id number] [address] [place] [address] * (ABNORMAL) POC URINALYSIS DIPSTICK AUTOMATED (10/08/2024 4:50 PM CDT) COLOR UA POC Yellow Pale to Dark Yellow [facility] CLARITY UA POC Clear Clear, Other [facility] GLUCOSE UA POC 2+(A) Negative, Normal [facility] BILIRUBIN UA POC Negative Negative [facility] KETONES UA POC Negative Negative [facility] SPECIFIC GRAVITY UA POC 1.010 1.000 - 1.030 [facility] BLOOD UA POC Negative Negative [facility] PH UA POC 5.5 5.0 - 8.0 [facility] PROTEIN UA POC Negative Negative [facility] UROBILINOGEN UA POC 0.2 <2.0 mg/dL [facility] NITRITE UA POC Negative Negative [facility] LEUKOCYTE ESTERASE UA POC Negative Negative [facility] KIT LOT NUMBER POC [phone] [facility] KIT EXP DATE POC 06/16/2025 [facility] Urine 10/08/2024 4:50 PM CDT Andrea Ren DO POINT OF CARE TESTING Final R esult Performing Organization Address City/[facility]/ZIP Co de Phone Number [facility] CLIA# [id number] [address] [address] * (ABNORMAL) BETA-AMYLOID 42/40 RATIO - AD DETECTION (10/08/2024 4:42 PM CDT) ABETA 42 62 pg/mL [facility], Comment: Reference Range: NOT ESTABLISHED ABETA 40 424 pg/mL [facility], Comment: Reference Range: NOT ESTABLISHED ABETA 42/40 RATIO 0.146(L) > OR = 0.170 [facility], Comment: Plasma beta-amyloid 42/40 ratio Risk Table: Risk of Alzheimer's Disease: Lower Risk: > or = 0.170 Intermediate Risk: 0.150 - 0.169 Higher Risk: <0.150 The concentrations on this report only represent wild type Abeta 40 and 42. The variants of Abeta 40 and 42 are not detected in this assay. This test was developed and its analytical performance characteristics have been determined by [employer]. It has not been cleared or approved by the FDA. This assay has been validated pursuant to the CLIA regulations and is used for clinical purposes. Test Performed at: [employer]/[facility], [address] [place], [place] Amarilys Simpson MD,PhD,AMIRAH Blood 10/08/2024 4:42 PM CDT 10/09/2024 1:10 AM CDT us Andrea Ren DO CHEMISTRY ORDERABLES Final Re sult [facility] [phone] [facility] [employer]/[facility], [address] [place], [place] * [facility] MISCELLANEOUS TEST (10/08/2024 4:42 PM CDT) [facility] RESULT E3/E3 [facility], Comment: [facility] component Name and Code: [employer] AD DETECT(R) APOE ISOFORM, PLASMA [[id number]] Reference Range: NOT ESTABLISHED E3/E3: This combination of isoforms is most common and suggests an average risk of Alzheimer's disease. Patient sex, environment, race, ethnicity, and presence of other risk alleles also contribute to the risk of AD associated with APOE genotype (1,2). Patients who do not carry the APOE4 gene are of average risk for amyloid related imaging abnormalities (ARIA) when receiving amyloid-modifying therapies (3). (1) Claudia et al. ANSELMO Neurol. 2017;74:7578-7128 (2) Edyta et al. [place] Rev Neurol. 2022;19:261-277 (3) Len et al. J Prev Alz Dis. 2022;10:362-377 This test was developed and its analytical performance characteristics have been determined by [employer]. It has not been cleared or approved by the FDA. This assay has been validated pursuant to the CLIA regulations and is used for clinical purposes. Test Performed at: [employer]/[facility], [address] [place] [address] Amarilys Simpson MD,PhD,AMIRAH 10/08/2024 4:42 PM CDT 10/09/2024 1:10 AM CDT Narrative [facility] - 10/13/2024 5:01 PM CDT This unsolicited order was created by [employer]. The [facility] Name and Code for this order is: [employer] AD DETECT(R) APOE ISOFORM, PLASMA [[id number]] Andrea Ren DO CHEMISTRY ORDERABLES Final Re sult [facility] [phone] [facility] [employer]/[facility], [address] [place] [address] * MISCELLANEOUS LAB TEST (10/08/2024 4:42 PM CDT) [facility] MISCELLANEOUS LAB TEST REPORT [facility], Comment: [facility] AD DETECT [id number], PLASMA TEST NAME RESULT FLAG UNITS REF RANGE ========= ====== ==== ===== ========= [facility] AD DETECT [id number], PLASMA 0.87 H pg/mL < OR = 0.86 Plasma p-uqe430 levels are consistently increased in patients with MCI and dementia due to Alzheimer's disease when compared to controls and show strong correlation with CSF p-upy814. Ref Melyssa CHARLTON et al. Trajectories of CSF and plasma biomarkers across Alzheimer's disease continuum: disease staging by NF-L, p-xuk624, and GFAP. Neurobiol of Dis 189 2022) 178374. Plasma p-aqp960 can be elevated in patients with amyotrophic lateral sclerosis and is associated with lower motor neuron disease. Ref Royce Rush et al. Elevated plasma p-vqv497 unrelated to Alzheimer's disease pathology in amyotrophic lateral sclerosis. JNNP 2022; 94: 428-435. This test was developed and its analytical performance characteristics have been determined by [employer]. It has not been cleared or approved by the FDA. This assay has been validated pursuant to the CLIA regulations and is used for clinical purposes. Test Performed at: [employer], [address] [place], [place] Amarilys Simpson MD,PhD,AMIRAH Blood 10/08/2024 4:42 PM CDT 10/09/2024 1:24 AM CDT Andrea Ren DO CHEMISTRY ORDERABLES Final Re sult [facility] [phone] [employer], [address] [place], [place] * (ABNORMAL) IRON, TIBC, AND PERCENT SATURATION (10/08/2024 4:42 PM CDT) IRON 26(L) 45 - 160 mcg/dL [facility] TIBC 323 250 - 450 mcg/dL (calc) [facility] IRON % SATURATION 8(L) 16 - 45 % (calc) [facility] Comment: Test Performed at: [facility] [facility] [address] [facility] [place] [address] Harlan Guidry MD Blood 10/08/2024 4:42 PM CDT 10/09/2024 1:03 AM CDT us Corin De Leon TELEGRAPH INSTALLER CHEMISTRY ORDERABLES Final Resul t [facility] [phone] [facility] [address] [facility] [place] [address] * URINE CULTURE (10/08/2024 4:42 PM CDT) URINE CULTURE SEE NOTE [facility] Comment: CULTURE, URINE, ROUTINE Micro Number: [id number] Test Status: Final Specimen Source: Urine, clean catch Specimen Quality: Adequate Result: No Growth Test Performed at: [facility] [address] [facility] [place] [address] Harlan Guidry MD Urine URINE SPECIMEN OBTAINED BY CLEAN CATCH PROCEDURE / Unknown 10/08/2024 4:42 PM CDT 10/09/2024 2:42 AM CDT Andrea Ren DO MICROBIOLOGY - GENERAL ORDERA BLES Final Result [facility] [phone] [facility] [address] [place] [address] [place] [address] * FERRITIN (10/08/2024 4:42 PM CDT) FERRITIN 91 16 - 232 ng/mL [facility] Comment: Test Performed at: [facility] [address] [facility] [place] [address] Harlan Guidry MD Blood 10/08/2024 4:42 PM CDT 10/09/2024 1:03 AM CDT Corin De Leon TELEGRAPH INSTALLER CHEMISTRY ORDERABLES Final Resul t Performing Organization Address City/[facility]/ZIP Co de Phone Number [facility] [phone] [facility] [address] [place] [address] * VITAMIN B12 LEVEL (10/08/2024 4:42 PM CDT) Pathologist [facility] VITAMIN B12 460 200 - 1100 pg/mL [facility] Comment: Test Performed at: [facility] [address] [place] [address] Harlan Guidry MD Blood 10/08/2024 4:42 PM CDT 10/09/2024 1:03 AM CDT Corin De Leon NP CHEMISTRY ORDERABLES Final Resul t Performing Organization Address [facility] Co de Phone Number [facility] [phone] [facility] [address] [place] [address] * MICROALBUMIN/CREATININE RATIO, RANDOM UR (07/02/2024 11:52 AM EXECUTIVE DIRECTOR [employer]ET[employer]) Pathologist [facility] Creatinine, Urine 72 20 - 275 mg/dL [facility] MICROALBUMIN, URINE 0.4 See Note: mg/dL [facility] Comment: Reference Range: Reference Range Not established MICROALBUMIN/CREAT RATIO, UR 6 <30 mg/g creat [facility] Comment: The ADA defines abnormalities in albumin excretion as follows: Albuminuria Category Result (mg/g creatinine) Normal to Mildly increased <30 Moderately increased 30-299 Severely increased > OR = 300 The ADA recommends that at least two of three specimens collected within a 3-6 month period be abnormal before considering a patient to be within a diagnostic category. Test Performed at: [facility] [address] [place] [place] [address] Harlan Guidry MD Urine URINE SPECIMEN OBTAINED BY CLEAN CATCH PROCEDURE / Unknown 07/02/2024 11:52 AM EXECUTIVE DIRECTOR [employer]ETING 07/02/2024 11:52 AM EXECUTIVE DIRECTOR [employer] MARKETING Andrea Ren DO URINE ORDERABLES Final Result [facility] [phone] [facility] [address] [place] [address] * COLONOSCOPY REPORT (06/16/2024 10:00 AM EXECUTIVE DIRECTOR [employer]) Narrative Procedure Note Aayush Jc MD - 06/16/2024 10:00 AM CST [facility] Patient Name: Maya Figueroa Procedure Date: 06/16/2024 Date of : 1970 Admit Type: Outpatient Age: 53 Attending MD: Aayush Jc , , Procedure: Colonoscopy Indications: Iron deficiency anemia Providers: Aayush Jc Referring MD: Andrea eRn Medicines: Monitored Anesthesia Care Complications: No immediate complications. Procedure: After I obtained informed consent, the scope was passed under direct vision. Throughout the procedure, the patient's blood pressure, pulse, and oxygen saturations were monitored continuously. The Colonoscope was introduced through the anus and advanced to the cecum, identified by appendiceal orifice and ileocecal valve. The colonoscopy was performed without difficulty. The patient tolerated the procedure well. The quality of the bowel preparation was evaluated using the BBPS (Bittinger Bowel Preparation Scale) with scores of: Right Colon = 1 (portion of mucosa seen, but other areas not well seen due to staining, residual stool and/or opaque liquid), Transverse Colon = 1 (portion of mucosa seen, but other areas not well seen due to staining, residual stool and/or opaque liquid) and Left Colon = 1 (portion of mucosa seen, but other areas not well seen due to staining, residual stool and/or opaque liquid). The total BBPS score equals 3. Estimated Blood Loss: Estimated blood loss was minimal. Findings: The terminal ileum appeared normal. A 3 mm polyp was found in the ascending colon. The polyp was sessile. The polyp was removed with a cold snare. Resection and retrieval were complete. Internal hemorrhoids were found during retroflexion. The hemorrhoids were mild. The exam was otherwise without abnormality on direct and retroflexion views. Impression: - The examined portion of the ileum was normal. - One 3 mm polyp in the ascending colon, removed with a cold snare. Resected and retrieved. - Internal hemorrhoids. - The examination was otherwise normal on direct and retroflexion views. Recommendation: - Await pathology results. Repeat in 1 year due to suboptimal prep. Aayush Jc, 06/16/2024 10:00:15 AM Number of Addenda: 0 Note Initiated On: 06/16/2024 9:27 AM Scope Withdrawal Time 0 hours 7 minutes 57 seconds Scope In: 9:39:59 AM Scope Out: 9:51:13 AM [address] [place], [place] Aayush Jc MD GI PROCEDURE ORDERABLES Final Result * DIABETES EYE EXAM (05/06/2024 11:09 AM EXECUTIVE DIRECTOR [employer] MARK[employer]) Abstract Provider HEALTH MAINTENANCE Edited Resu lt - Final * MAMMO 3D JAYLON SCREEN BILAT W OR WO CAD (03/26/2024 11:36 AM CDT) Anatomical Region Laterality Modality Breast Bilateral Mammography Impressions 04/09/2024 4:06 PM CDT : No mammographic evidence of malignancy. BI-RADS ASSESSMENT: 2 - Benign RECOMMENDATION: Routine annual screening mammography. Narrative 04/09/2024 4:06 PM CDT EXAM: MAMMO SCRN BILAT 3D JAYLON W OR WO CAD INDICATION: Screening COMPARISON: 03/25/2023 MAMMO SCRN BILAT 3D JAYLON W OR WO CAD, 03/21/2022 MAMMO SCRN BILAT 3D JAYLON W OR WO CAD, 02/06/2021 MAMMO SCRN BILAT 3D JAYLON W OR WO CAD, 01/28/2020 MAMMO SCRN BILAT 3D JAYLON W OR WO CAD, and 11/06/2018 MAMMO SCRN BILAT 3D JAYLON W OR WO CAD BREAST COMPOSITION: There are scattered areas of fibroglandular density. FINDINGS: There are multiple bilateral well circumscribed breast masses, typically a benign finding. RIGHT BREAST: There are no suspicious masses, calcifications, or areas of architectural distortion. LEFT BREAST: There are no suspicious masses, calcifications, or areas of architectural distortion. Melissa Anand MD MAMMO ORDERABLES Final Re sult * (ABNORMAL) POC OCCULT BLOOD UP TO 3 CARDS (07/31/2017 11:51 AM EXECUTIVE DIRECTOR GLOBAL BRAND MARKETING) OCCULT BLOOD 1 CARD POC Negative Negative 07/31/2017 11:54 AM EXECUTIVE DIRECTOR GLOBAL BRAND MARKETING [facility] OCCULT BLOOD 2 CARD POC Negative Negative 07/31/2017 11:54 AM EXECUTIVE DIRECTOR GLOBAL BRAND MARKETING [facility] OCCULT BLOOD 3 CARD POC Invalid Result(A) Negative 07/31/2017 11:54 AM EXECUTIVE DIRECTOR GLOBAL BRAND MARKETING [facility] Comment:no specimen on card INTERNAL KIT QC Pass Pass 07/31/2017 11:54 AM EXECUTIVE DIRECTOR GLOBAL BRAND MARKETING [facility] CARD LOT NUMBER POC [id number] 07/31/2017 11:54 AM EXECUTIVE DIRECTOR GLOBAL BRAND MARKETING [facility] CARD EXPIRATION DATE POC 02-15-2018 07/31/2017 11:54 AM [facility] DEVELOPER LOT NUMBER POC [id number] 07/31/2017 11:54 AM [facility] DEVELOPER EXPIRATION DATE POC 12-16-2019 07/31/2017 11:54 AM [facility] Stool STOOL SPECIMEN / Unknown 07/31/2017 11:51 AM EXECUTIVE DIRECTOR GLOBAL BRAND MARKETING Danita Smith RABBIT BREEDER POINT OF CARE TESTING Final R esult [facility] CLIA# [id number] [address] [place] [phone] from Last 3 Months or Most Recently Relevant to Health Maintenance Insurance [id number] * Guarantor: MAYA FIGUEROA Account Type Relation to Patient Date of Phone Billing Address Personal/Family [address] [place] [address] RX INFOCROSSING Medicaid RX OMER PLANS (INTERNAL) [facility] Internal Plans Advance Directives For more information, please contact: [phone] * Full Code (Latest Code Status on File) Date Activated Date Inactivated Comments 06/16/2024 8:51 AM 06/16/2024 12:23 PM Care Teams Real Estate Professor Relationship Specialty Start Date End Date Andrea Ren DO [address], [place] [address] PCP - General Family Practice 08/03/21
--- OUTSIDE RECORDS SUMMARY | 2024-11-14 19:00 | XMS_ITS | Encounter Summary ---
Author Organization [facility] Address [address] [place] [address] Care Team Providers Care Business Support Administrator Name Role Phone Randy Ren MD Primary Care Provider [phone] Encounter Details Date Type Department Care Team (Latest Contact Info) Description 08/13/2001 Outpatient Historical [address] [phone] Alondra Mehta MD [address] [place] [address], [id number] ESOPHAGEAL REFLUX (Primary Dx) Social History Tobacco Use Types Packs/Day Years Used Date Smoking Tobacco: Never Assessed Comments Unknown Sex and Gender Information Value Date Recorded Sex Assigned at Not on file Legal Sex Female 6:05 AM 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 Gender Identity Not on file Sexual Orientation Not on file documented as of this encounter Plan of Treatment Not on file documented as of this encounter Visit Diagnoses Diagnosis Esophageal reflux- Primary documented in this encounter Additional Health Concerns Infection Onset Date Last Indicated Resolved Time MRSA Comment:Resolved 07/30/2018, Infection Prevention Nares 12/15/15 12/16/2015 12/16/2015 07/30/2018 10:47 AM 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 R/O COVID-19 03/01/2020 03/01/2020 03/03/2020 1:01 AM CDT documented as of this encounter Care Teams Business Support Administrator Relationship Specialty Start Date End Date Randy Ren MD [address] [place] [address] PCP - General Family Practice 01/25/15 documented as of this encounter
--- OUTSIDE RECORDS SUMMARY | 2024-11-14 19:00 | XMS_ITS | Encounter Summary ---
Author Organization [facility] Address [address] [place] [address] Care Team Providers Care Otr Truck Driver Name Role Phone Randy Ren MD Primary Care Provider [phone] Reason for Referral * Outpatient Services (Routine) - Closed Specialty Diagnoses / Procedures Referred By Contac t Referred To Contact Diagnoses Irregular periods Procedures US PELVIS + TRANSVAG NON OB US PELVIS COMPLETE Cachorro Mackay MD Phone: tel: fax: [facility] Pre-Registration [place] CALL TO MAKE APPOINTMENT ONLY [address] [place] [address] Phone: tel: fax: Referral ID Status Reason Start Date Expiration Date V isits Requested Visits Authorized [id number] Closed [facility] TO SCHEDULE ([facility]) 11/10/2014 12/11/2015 1 1 Encounter Details Date Type Department Care Team (Late st Contact Info) Description 11/10/2014 Ancillary Orders [facility] Medicine [place] [address] [phone] Cachorro Mackay MD [address] [place] [phone] Irregular periods (Primary Dx) Social History Tobacco Use Types Packs/Day Years Used Date Smoking Tobacco: Former Cigarettes Q uit: 09/08/1988 Smokeless Tobacco: Never Alcohol Use Standard Drinks/Week Comments No 0 (1 standard drink = 0.6 oz pur e alcohol) Comments No Sex and Gender Information Value Date Recorded Sex Assigned at Not on file Legal Sex Female 6:05 AM INKER MACHINE Gender Identity Not on file Sexual Orientation Not on file Occupation Industry Job Start Date Job End Date Not on file Not on file Not on file Not on file documented as of this encounter Plan of Treatment Not on file documented as of this encounter Results * US PELVIS + TRANSVAG NON OB (11/10/2014 9:27 AM CDT) Anatomical Region Laterality Modality Pelvis Ultrasound 11/10/2014 8:16 AM CDT Impressions 11/10/2014 6:38 PM CDT IMPRESSION: See report below. Exam: US PELVIS + TRANSVAG NON OB Date/Time of Exam: November 10, 2014 09:27:55 AM Reason For Exam: Irregular menstrual cycle. Technique: Real time grayscale images of the uterus and adnexa was performed utilizing a [trans-abdominal] and [trans-vaginal] approach. LMP: 11/08/2014 : Unknown Comparison: [None. ] Findings: Uterine Size: 9.1 x 5.1 x 6.0 cm Masses: [None.] Cervix: Simple nabothian cysts are seen measuring up to 4 mm. Endometrium: [Normal.] Endometrial thickness: 9.4 mm Adnexa: A simple cyst the left measures up to 1.5 cm. Right ovary size: 2.7 x 2.3 x 2.0 cm Left ovary size: 3.0 x 2.1 x 2.7 cm Free fluid: [None. ] Other findings: [None. ] Impression Incidental findings of small nabothian cysts 1.5 cm simple left adnexal cyst. Otherwise, unremarkable examination. Narrative Procedure Note Eduar Scott MD - 11/10/2014 IMPRESSION IMPRESSION: See report below. Exam: US PELVIS + TRANSVAG NON OB Date/Time of Exam: November 10, 2014 09:27:55 AM Reason For Exam: Irregular menstrual cycle. Technique: Real time grayscale images of the uterus and adnexa was performed utilizing a [trans-abdominal] and [trans-vaginal] approach. LMP: 11/08/2014 : Unknown Comparison: [None. ] Findings: Uterine Size: 9.1 x 5.1 x 6.0 cm Masses: [None.] Cervix: Simple nabothian cysts are seen measuring up to 4 mm. Endometrium: [Normal.] Endometrial thickness: 9.4 mm Adnexa: A simple cyst the left measures up to 1.5 cm. Right ovary size: 2.7 x 2.3 x 2.0 cm Left ovary size: 3.0 x 2.1 x 2.7 cm Free fluid: [None. ] Other findings: [None. ] Impression Incidental findings of small nabothian cysts 1.5 cm simple left adnexal cyst. Otherwise, unremarkable examination. us Cachorro Mackay MD US ORDERABLES Final Result documented in this encounter Visit Diagnoses Diagnosis Irregular periods Irregular menstrual cycle Irregular periods- Primary Irregular menstrual cycle documented in this encounter Additional Health Concerns Infection Onset Date Last Indicated Resolved Time MRSA Comment:Resolved 07/30/2018, Infection Prevention Nares 12/15/15 12/16/2015 12/16/2015 07/30/2018 10:47 AM INKER MACHINE R/O COVID-19 03/01/2020 03/01/2020 03/03/2020 1:01 AM CDT documented as of this encounter Care Teams Otr Truck Driver Relationship Specialty Start Date End Date Randy Ren MD [address] [place] [id number] PCP - General Family Practice 01/25/15 documented as of this encounter
--- OUTSIDE RECORDS SUMMARY | 2024-11-14 19:00 | XMS_ITS | Encounter Summary ---
Author Organization [facility] Address [address] [place] [address] Care Team Providers Care Patient Registrar Name Role Phone Randy Ren MD Primary Care Provider [phone] Encounter Details Date Type Department Care Team (Latest Contact Info) Description 11/18/2001 Outpatient Historical [facility] Medicine [place] [address] [phone] Gregoria Olivarez MD [address] [place] [address] IMPACTED CERUMEN (Primary Dx); VAGINITIS NOS; ABNORMAL WEIGHT GAIN; OTHER MALAISE AND FATIGUE Social History Tobacco Use Types Packs/Day Years Used Date Smoking Tobacco: Never Assessed Comments Unknown Sex and Gender Information Value Date Recorded Sex Assigned at Not on file Legal Sex Female 6:05 AM CHIEF DEVELOPMENT OFFICER Gender Identity Not on file Sexual Orientation Not on file documented as of this encounter Plan of Treatment Not on file documented as of this encounter Visit Diagnoses Diagnosis Impacted cerumen- Primary Vaginitis and vulvovaginitis, unspecified Abnormal weight gain Other malaise and fatigue documented in this encounter Additional Health Concerns Infection Onset Date Last Indicated Resolved Time MRSA Comment:Resolved 07/30/2018, Infection Prevention Nares 12/15/15 12/16/2015 12/16/2015 07/30/2018 10:47 AM CHIEF DEVELOPMENT OFFICER R/O COVID-19 03/01/2020 03/01/2020 03/03/2020 1:01 AM CDT documented as of this encounter Care Teams Patient Registrar Relationship Specialty Start Date End Date Randy Ren MD [address] [place] [address] PCP - General Family Practice 01/25/15 documented as of this encounter
--- OUTSIDE RECORDS SUMMARY | 2024-11-14 19:00 | XMS_ITS | Encounter Summary ---
Author Organization [facility] Address [address] [place] [address] Care Team Providers Care Creative Services Intern Name Role Phone Randy Ren MD Primary Care Provider [phone] Encounter Details Date Type Department Care Team (Latest Contact Info) Description 01/31/2004 Outpatient Historical [facility] Medicine [place] [address] [phone] Gregoria Olivarez MD [address] [place] [address] LUMBAGO (Primary Dx); HYPERTENSION NOS Social History Tobacco Use Types Packs/Day Years Used Date Smoking Tobacco: Never Assessed Comments Unknown Sex and Gender Information Value Date Recorded Sex Assigned at Not on file Legal Sex Female 6:05 AM LOGGING WORKER Gender Identity Not on file Sexual Orientation Not on file documented as of this encounter Plan of Treatment Not on file documented as of this encounter Visit Diagnoses Diagnosis Lumbago- Primary Unspecified essential hypertension documented in this encounter Additional Health Concerns Infection Onset Date Last Indicated Resolved Time MRSA Comment:Resolved 07/30/2018, Infection Prevention Nares 12/15/15 12/16/2015 12/16/2015 07/30/2018 10:47 AM LOGGING WORKER R/O COVID-19 03/01/2020 03/01/2020 03/03/2020 1:01 AM CDT documented as of this encounter Care Teams Creative Services Intern Relationship Specialty Start Date End Date Randy Ren MD [address] [place] [address] PCP - General Family Practice 01/25/15 documented as of this encounter
--- OUTSIDE RECORDS SUMMARY | 2024-11-14 19:00 | XMS_ITS | Encounter Summary ---
Author Organization [facility] Address [address] [place] [address] Care Team Providers Care Automobile Body Repair Supervisor Name Role Phone Randy Ren MD Primary Care Provider [phone] Reason for Visit * Reason Comments Medication Refill Encounter Details Date Type Department Care Team (Late st Contact Info) Description 06/15/2019 Refill [facility] Pain Management Procedures [place] [address] [place] [address] Polina Garcia, SMOKING PIPE DRILLER AND THREADER [address] [facility] [address] [phone] Social History Tobacco Use Types Packs/Day Years Used Date Smoking Tobacco: Former Cigarettes 1 2 0 09/08/1986 - 09/08/1988 Smokeless Tobacco: Never Alcohol Use Standard Drinks/Week Comments No 0 (1 standard drink = 0.6 oz pur e alcohol) Comments No Sex and Gender Information Value Date Recorded Sex Assigned at Not on file Legal Sex Female 6:05 AM ASH HANDLER Gender Identity Not on file Sexual Orientation [...] Date Last Indicated Resolved Time R/O COVID-19 03/01/2020 03/01/2020 03/03/2020 1:01 AM CDT Assessment Noted Time PHQ-9 Depression Total Score: 3 08/20/19 19 2:00 PM ASH HANDLER documented as of this encounter Care Teams Automobile Body Repair Supervisor Relationship Specialty Start Date End Date Randy Ren MD [address] [address] PCP - General Family Practice 01/25/15 documented as of this encounter
--- OUTSIDE RECORDS SUMMARY | 2024-11-14 19:00 | XMS_ITS | Encounter Summary ---
Author Organization [facility] Address [address] [place] [address] Care Team Providers Care Pipe Organ Mechanic Name Role Phone Randy Ren MD Primary Care Provider [phone] Encounter Details Date Type Department Care Team (Latest Contact Info) Description 05/29/2002 Outpatient Historical [facility] [address] [place] [address] Alondra Mehta MD [address] [place] [address], [address] ESOPHAGEAL ANOMALY NEC (Primary Dx) Social History Tobacco Use Types Packs/Day Years Used Date Smoking Tobacco: Never Assessed Comments Unknown Sex and Gender Information Value Date Recorded Sex Assigned at Not on file Legal Sex Female 6:05 AM FISHER WEIR Gender Identity Not on file Sexual Orientation Not on file documented as of this encounter Plan of Treatment Not on file documented as of this encounter Visit Diagnoses Diagnosis Other specified congenital anomaly of esophagus- Primary documented in this encounter Additional Health Concerns Infection Onset Date Last Indicated Resolved Time MRSA Comment:Resolved 07/30/2018, Infection Prevention Nares 12/15/15 12/16/2015 12/16/2015 07/30/2018 10:47 AM FISHER WEIR R/O COVID-19 03/01/2020 03/01/2020 03/03/2020 1:01 AM CDT documented as of this encounter Care Teams Pipe Organ Mechanic Relationship Specialty Start Date End Date Randy Ren MD [address] [place] [address] PCP - General Family Practice 01/25/15 documented as of this encounter
--- OUTSIDE RECORDS SUMMARY | 2024-11-14 19:00 | XMS_ITS | Encounter Summary ---
Author Organization [facility] Address [address] [place] [address] Care Team Providers Care J2Ee Architect Name Role Phone Randy Ren MD Primary Care Provider Encounter Details Date Type Department Care Team (Latest Contact Info) Description 10/03/1998 Outpatient Historical [facility] Oral and Maxillo Surgery- [address] [place] [address] Jesus Ridley, SHYANNE NO ADDRESS ON FILE Dental caries (Primary Dx); Chronic gingivitis; Unspecified disorder of the teeth and supporting structures; Periapical abscess Social History Tobacco Use Types Packs/Day Years Used Date Smoking Tobacco: Never Assessed Comments Unknown Sex and Gender Information Value Date Recorded Sex Assigned at Not on file Legal Sex Female 6:05 AM BORDER POLICE Gender Identity Not on file Sexual Orientation Not on file documented as of this encounter Plan of Treatment Not on file documented as of this encounter Visit Diagnoses Diagnosis Dental caries- Primary Chronic gingivitis Unspecified disorder of the teeth and supporting structures Periapical abscess Periapical abscess without sinus documented in this encounter Additional Health Concerns Infection Onset Date Last Indicated Resolved Time MRSA Comment:Resolved 07/30/2018, Infection Prevention Nares 12/15/15 12/16/2015 12/16/2015 07/30/2018 10:47 AM BORDER POLICE R/O COVID-19 03/01/2020 03/01/2020 03/03/2020 1:01 AM CDT documented as of this encounter Care Teams J2Ee Architect Relationship Specialty Start Date End Date Randy Ren MD [address] [place] [address] PCP - General Family Practice 01/25/15 documented as of this encounter
--- OUTSIDE RECORDS SUMMARY | 2024-11-14 19:00 | XMS_ITS | Encounter Summary ---
Author Organization [facility] Address [address] [place] [address] Care Team Providers Care Traffic Engineer Name Role Phone Randy Ren MD Primary Care Provider [phone] Encounter Details Date Type Department Care Team (Latest Contact Info) Description 08/10/1998 Outpatient Historical [facility] Oral and Maxillo Surgery- [address] [place] [address] Jesus Ridley, SHYANNE NO ADDRESS ON FILE Dental caries (Primary Dx); Chronic gingivitis; Retained dental root; Periapical abscess Social History Tobacco Use Types Packs/Day Years Used Date Smoking Tobacco: Never Assessed Comments Unknown Sex and Gender Information Value Date Recorded Sex Assigned at Not on file Legal Sex Female 6:05 AM BI MANAGER Gender Identity Not on file Sexual Orientation Not on file documented as of this encounter Plan of Treatment Not on file documented as of this encounter Visit Diagnoses Diagnosis Dental caries- Primary Chronic gingivitis Retained dental root Periapical abscess Periapical abscess without sinus documented in this encounter Additional Health Concerns Infection Onset Date Last Indicated Resolved Time MRSA Comment:Resolved 07/30/2018, Infection Prevention Nares 12/15/15 12/16/2015 12/16/2015 07/30/2018 10:47 AM BI MANAGER R/O COVID-19 03/01/2020 03/01/2020 03/03/2020 1:01 AM CDT documented as of this encounter Care Teams Traffic Engineer Relationship Specialty Start Date End Date Randy Ren MD [address] [place] [address] PCP - General Family Practice 01/25/15 documented as of this encounter
--- OUTSIDE RECORDS SUMMARY | 2024-11-14 19:00 | XMS_ITS | Encounter Summary ---
Author Organization [facility] Address [address] [place] [address] Care Team Providers Care Supervisor Tank Cleaning Name Role Phone Randy Ren MD Primary Care Provider [phone] Reason for Referral * Outpatient Services (Routine) - Closed Specialty Diagnoses / Procedures Referred By Contac t Referred To Contact Radiology Diagnoses Mixed incontinence Morbid obesity (CMS/HCC) Procedures XR VIDEOURODYNAMICS Tyler Christian MD [address] [facility] [address] [place] [address] Phone: tel: fax: [facility] [address] [place] [address] Phone: tel: fax: Referral ID Status Reason Start Date Expiration Date V isits Requested Visits Authorized [id number] Closed [facility] TO SCHEDULE (S[facility]) 01/12/2013 02/12/2014 1 1 Encounter Details Date Type Department Care Team (Late st Contact Info) Description 01/12/2013 Ancillary Orders [facility] Pre-Registration [place] CALL TO MAKE APPOINTMENT ONLY [address] [place] [phone] Tyler Christian MD [address] [address] Mixed incontinence (Primary Dx); Morbid obesity (CMS/HCC) Social History Tobacco Use Types Packs/Day Years Used Date Smoking Tobacco: Former Cigarettes Q uit: 09/08/1988 Alcohol Use Standard Drinks/Week Comments No 0 (1 standard drink = 0.6 oz pur e alcohol) Comments No Sex and Gender Information Value Date Recorded Sex Assigned at Not on file Legal Sex Female 6:05 AM PHYSICAL EDUCATION SPECIALIST Gender Identity Not on file Sexual Orientation Not on file documented as of this encounter Plan of Treatment Not on file documented as of this encounter Results * XR VIDEOURODYNAMICS (02/23/2013 5:17 PM CDT) Anatomical Region Laterality Modality Pelvis Computed Radiogr aphy Impressions 02/26/2013 6:17 PM CDT : 1. The filling study documents normal detrusor activity. 2. 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 3. Leak point pressure testing does not support a diagnosis of intrinsic sphincter dysfunction. 4. The flow pressure study data suggests the patient has adequate detrusor function but augments their voiding by using increased intra-abdominal pressure. The flow pressure data plots out in the unobstructed range on the nomogram. DL/maribel - transcribed in Epic - Narrative 02/26/2013 6:17 PM CDT COMPLEX VIDEO URODYNAMIC: DATE OF PROCEDURE: 02/23/2013. UROFLOW: The patient voided 267 mL for the baseline flow test. The peak flow was 20 mL/sec. Residual urine was 50 mL. The flow curve suggests the patient may have augmented the flow by straining. CYSTOMETRY: A 6-Congolese dual lumen urodynamic catheter, rectal catheter and surface EMG electrodes were placed. The filling rate was 20 mL/min. Patient was filled supine due to her exceeding the weight limit of the exam table. First sensation of filling was noted at 80 mL. We filled to 347 mL before she had a strong consistent urge to void. The detrusor pressure gradually increased to 3 cm of water which was the pressure when we stopped filling. There were no detrusor contractions noted during filling. VALSALVA LEAD POINT PRESSURE TESTING: At rest the bladder base was located at the upper border of the pubis. During leak point pressure testing we noted the bladder neck was hypermobile moving down below the symphysis pubis. Several of the video loops were positive for stress incontinence with leak point pressures of 119, 108, 120, 145 and 192. FLOW PRESSURE STUDY: The patient voided with several poorly maintained detrusor contractions. The peak detrusor for her second flow was 25 in centimeters of water. Peak flow was 20 mL/sec. Total voided volume was 497 mL. Residual urine was 60 mL. One EMG patch became loose during the pressure flow study causing artifacting of EMG after the first flow so the EMG activity is difficult to interpret. This data plots out in the unobstructed range on the female nomogram. Procedure Note Reta Cardoso MD - 02/26/2013 COMPLEX VIDEO URODYNAMIC: DATE OF PROCEDURE: 02/23/2013. UROFLOW: The patient voided 267 mL for the baseline flow test. The peakflow was 20 mL/sec. Residual urine was 50 mL. The flow curve suggeststhe patient may have augmented the flow by straining. CYSTOMETRY: A 6-Congolese dual lumen urodynamic catheter, rectal catheter andsurface EMG electrodes were placed. The filling rate was 20 mL/min.Patient was filled supine due to her exceeding the weight limit of theexam table. First sensation of filling was noted at 80 mL. We filled to347 mL before she had a strong consistent urge to void. The detrusorpressure gradually increased to 3 cm of water which was the pressure whenwe stopped filling. There were no detrusor contractions noted duringfilling. VALSALVA LEAD POINT PRESSURE TESTING: At rest the bladder base was locatedat the upper border of the pubis. During leak point pressure testing wenoted the bladder neck was hypermobile moving down below the symphysispubis. Several of the video loops were positive for stress incontinencewith leak point pressures of 119, 108, 120, 145 and 192. FLOW PRESSURE STUDY: The patient voided with several poorly maintaineddetrusor contractions. The peak detrusor for her second flow was 25 incentimeters of water. Peak flow was 20 mL/sec. Total voided volume gyd242 mL. Residual urine was 60 mL. One EMG patch became loose during thepressure flow study causing artifacting of EMG after the first flow so theEMG activity is difficult to interpret. This data plots out in theunobstructed range on the female nomogram. IMPRESSION: 1. The filling study documents normal detrusor activity. 2. 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 3. Leak point pressure testing does not support a diagnosis of intrinsicsphincter dysfunction. 4. The flow pressure study data suggests the patient has adequatedetrusor function but augments their voiding by using increasedintra-abdominal pressure. The flow pressure data plots out in theunobstructed range on the nomogram. DL/maribel - transcribed in [facility] - [facility] Tlyer Christian MD DIAGNOSTIC IMAGING ORDERABLES Final Result documented in this encounter Visit Diagnoses Diagnosis Mixed incontinence- Primary Mixed incontinence urge and stress (male)(female) Morbid obesity (CMS/HCC) Morbid obesity Mixed incontinence Mixed incontinence urge and stress (male)(female) Morbid obesity (CMS/HCC) Morbid obesity documented in this encounter Additional Health Concerns Infection Onset Date Last Indicated Resolved Time MRSA Comment:Resolved 07/30/2018, Infection Prevention Nares 12/15/15 12/16/2015 12/16/2015 07/30/2018 10:47 AM PHYSICAL EDUCATION SPECIALIST R/O COVID-19 03/01/2020 03/01/2020 03/03/2020 1:01 AM CDT documented as of this encounter Care Teams Supervisor Tank Cleaning Relationship Specialty Start Date End Date Randy Ren MD [address] [place] [address] PCP - General Family Practice 01/25/15 documented as of this encounter
--- OUTSIDE RECORDS SUMMARY | 2024-11-14 19:00 | XMS_ITS | Encounter Summary ---
Author Organization [facility] Address [address] [place] [address] Care Team Providers Care Flitch Hanger Name Role Phone Randy Ren MD Primary Care Provider [phone] Encounter Details Date Type Department Care Team (Latest Contact Info) Description 07/14/2004 Outpatient Historical [facility] Medicine [place] [address] [address] Gregoria Olivarez MD [address] [place] [address] ACUTE FRONTAL SINUSITIS (Primary Dx) Social History Tobacco Use Types Packs/Day Years Used Date Smoking Tobacco: Never Assessed Comments Unknown Sex and Gender Information Value Date Recorded Sex Assigned at Not on file Legal Sex Female 6:05 AM AUTOMOTIVE GENERAL SALES MANAGER Gender Identity Not on file Sexual Orientation Not on file documented as of this encounter Plan of Treatment Not on file documented as of this encounter Visit Diagnoses Diagnosis Acute frontal sinusitis- Primary documented in this encounter Additional Health Concerns Infection Onset Date Last Indicated Resolved Time MRSA Comment:Resolved 07/30/2018, Infection Prevention Nares 12/15/15 12/16/2015 12/16/2015 07/30/2018 10:47 AM AUTOMOTIVE GENERAL SALES MANAGER R/O COVID-19 03/01/2020 03/01/2020 03/03/2020 1:01 AM CDT documented as of this encounter Care Teams Flitch Hanger Relationship Specialty Start Date End Date Randy Ren MD [address] [place] [address] PCP - General Family Practice 01/25/15 documented as of this encounter
--- OUTSIDE RECORDS SUMMARY | 2024-11-14 19:00 | XMS_ITS | Encounter Summary ---
Author Organization [facility] Address [address] [place] [address] Care Team Providers Care Technical Writer And Editor Name Role Phone Randy Ren MD Primary Care Provider [phone] Reason for Referral * Outpatient Services (Routine) - Closed Specialty Diagnoses / Procedures Referred By Contac t Referred To Contact Radiology Diagnoses Visit for screening mammogram Procedures MAMMO SCREEN BILAT W OR WO CAD Randy Ren MD [address] [place] [address] Phone: tel: fax: [facility] [address] [facility] [address] [place] [address] Phone: tel: fax: Referral ID Status Reason Start Date Expiration Date Visits Re quested Visits Authorized [id number] Closed 09/18/2016 10/19/2017 1 1 Encounter Details Date Type Department Care Team (Latest Contact Info) Description 09/18/2016 Ancillary Orders [facility] Pre-Registration [place] CALL TO MAKE APPOINTMENT ONLY [address] [place] [address] Randy Ren MD [address] [place] [address] Visit for screening mammogram Social History Tobacco Use Types Packs/Day Years Used Date Smoking Tobacco: Former Cigarettes 0 09/09/1987 - 09/08/1988 Smokeless Tobacco: Never Alcohol Use Standard Drinks/Week Comments No 0 (1 standard drink = 0.6 oz pur e alcohol) Comments No Sex and Gender Information Value Date Recorded Sex Assigned at Not on file Legal Sex Female 6:05 AM SOFTWARE SALES Gender Identity Not on file Sexual Orientation Not on file Occupation Industry Job Start Date Job End Date Not on file Not on file Not on file Not on file documented as of this encounter Plan of Treatment Not on file documented as of this encounter Results * MAMMO SCREEN BILAT W OR WO CAD (10/08/2016 11:05 AM CDT) Anatomical Region Laterality Modality Breast Bilateral Mammography Narrative 10/09/2016 10:01 AM CDT Bilateral Mammogram Reason for Exam: Screening Comparison: Compared to: 09/06/2015 MAMMO DIGITAL SCREEN BILAT Findings: Bilateral CC and MLO views were obtained. This examination was reviewed with the aid of a computer-aided detection system(CAD). The breast tissue density is fatty. The overall fibroglandular pattern is stable. No suspicious abnormality is identified. No significant new findings since the prior mammogram(s). Randy Ren MD MAMMO ORDERABLES Final Result documented in this encounter Visit Diagnoses Diagnosis Visit for screening mammogram Other screening mammogram Visit for screening mammogram Other screening mammogram documented in this encounter Additional Health Concerns Infection Onset Date Last Indicated Resolved Time MRSA Comment:Resolved 07/30/2018, Infection Prevention Nares 12/15/15 12/16/2015 12/16/2015 07/30/2018 10:47 AM SOFTWARE SALES R/O COVID-19 03/01/2020 03/01/2020 03/03/2020 1:01 AM CDT Assessment Noted Time PHQ-9 Depression Total Score: 6 08/24/19 17 8:00 AM SOFTWARE SALES documented as of this encounter Care Teams Technical Writer And Editor Relationship Specialty Start Date End Date Randy Ren MD [address] [place] [phone] PCP - General Family Practice 01/25/15 documented as of this encounter
--- OUTSIDE RECORDS SUMMARY | 2024-11-14 19:00 | XMS_ITS | Encounter Summary ---
Author Organization [facility] Address [address] [facility] Attn: Epic [place] [address] Care Team Providers Care Angiography Technologist Name Role Phone Randy Ren MD Primary Care Provider [phone] Encounter Details Date Type Department Care Team (Late st Contact Info) Description 11/18/2001 Outpatient Historical Cachorro Mackay MD [address] [place] [phone] Social History Tobacco Use Types Packs/Day Years Used Date Smoking Tobacco: Never Assessed Comments Unknown Sex and Gender Information Value Date Recorded Sex Assigned at Not on file Legal Sex Female 6:05 AM METALLURGY LABORATORY TECHNICIAN Gender Identity Not on file Sexual Orientation Not on file documented as of this encounter Plan of Treatment Not on file documented as of this encounter Visit Diagnoses Not on filedocumented in this encounter Additional Health Concerns Infection Onset Date Last Indicated Resolved Time MRSA Comment:Resolved 07/30/2018, Infection Prevention Nares 12/15/15 12/16/2015 12/16/2015 07/30/2018 10:47 AM METALLURGY LABORATORY TECHNICIAN R/O COVID-19 03/01/2020 03/01/2020 03/03/2020 1:01 AM CDT documented as of this encounter Care Teams Angiography Technologist Relationship Specialty Start Date End Date Randy Ren MD [address] [place] [phone] PCP - General Family Practice 01/25/15 documented as of this encounter
--- OUTSIDE RECORDS SUMMARY | 2024-11-14 19:00 | XMS_ITS | Encounter Summary ---
Author Organization [facility] Address [address] [place] [address] Care Team Providers Care Forming Mill Operator Name Role Phone Randy Ren MD Primary Care Provider [phone] Reason for Referral * Outpatient Services (Routine) - Closed Specialty Diagnoses / Procedures Referred By Contac t Referred To Contact Diagnoses Visit for screening mammogram Procedures MAMMO SCREEN BILAT W OR WO CAD Randy Ren MD [address] [place] [address] Phone: tel: fax: Referral ID Status Reason Start Date Expiration Date Visits Re quested Visits Authorized [id number] Closed 10/16/2017 11/16/2018 1 1 Encounter Details Date Type Department Care Team (Latest Contact Info) Description 10/16/2017 Ancillary Orders [facility] Pre-Registration [place] CALL TO MAKE APPOINTMENT ONLY [address] [place] [address] Randy Ren MD [address] [place] [address] Visit for screening mammogram Social History Tobacco Use Types Packs/Day Years Used Date Smoking Tobacco: Former Cigarettes 0 09/09/1987 - 09/08/1988 Smokeless Tobacco: Never Alcohol Use Standard Drinks/Week Comments No 0 (1 standard drink = 0.6 oz pur e alcohol) Comments No Sex and Gender Information Value Date Recorded Sex Assigned at Not on file Legal Sex Female 6:05 AM CRUISE CONSULTANT Gender Identity Not on file Sexual Orientation Not on file Occupation Industry Job Start Date Job End Date Not on file Not on file Not on file Not on file documented as of this encounter Plan of Treatment Not on file documented as of this encounter Results * MAMMO SCREEN BILAT W OR WO CAD (11/05/2017 10:08 AM CDT) Anatomical Region Laterality Modality Breast Bilateral Mammography Narrative 11/06/2017 12:26 PM CDT Bilateral Mammogram Reason for Exam: Screening Comparison: Compared to: 10/08/2016 MAMMO SCREEN BILAT W OR WO CAD, and 09/06/2015 MAMMO DIGITAL SCREEN BILAT Findings: Bilateral CC and MLO views were obtained. This examination was reviewed with the aid of a computer-aided detection system(CAD). Breast Composition: The breasts are almost entirely [...] Nares 12/15/15 12/16/2015 12/16/2015 07/30/2018 10:47 AM CRUISE CONSULTANT R/O COVID-19 03/01/2020 03/01/2020 03/03/2020 1:01 AM CDT Assessment Noted Time PHQ-9 Depression Total Score: 6 08/24/19 17 8:00 AM CRUISE CONSULTANT documented as of this encounter Care Teams Forming Mill Operator Relationship Specialty Start Date End Date Randy Ren MD [address] [place] [address] PCP - General Family Practice 01/25/15 documented as of this encounter
--- OUTSIDE RECORDS SUMMARY | 2024-11-14 19:00 | XMS_ITS | Encounter Summary ---
Author Organization [facility] Address [address] [place] [address] Care Team Providers Care Geophysical Laboratory Supervisor Name Role Phone Randy Ren MD Primary Care Provider [phone] Encounter Details Date Type Department Care Team (Latest Contact Info) Description 06/18/2001 Outpatient Historical [facility] Medicine [place] [address], [place] [phone] Cachorro Mackay MD [address] [place] [phone] ESOPHAGEAL REFLUX (Primary Dx); UNSPECIFIED VIRAL INFECTION Social History Tobacco Use Types Packs/Day Years Used Date Smoking Tobacco: Never Assessed Comments Unknown Sex and Gender Information Value Date Recorded Sex Assigned at Not on file Legal Sex Female 6:05 AM CLEAN ENERGY POLICY ANALYST Gender Identity Not on file Sexual Orientation Not on file documented as of this encounter Plan of Treatment Not on file documented as of this encounter Visit Diagnoses Diagnosis Esophageal reflux- Primary Unspecified viral infection, in conditions classified elsewhere and of unspecified site documented in this encounter Additional Health Concerns Infection Onset Date Last Indicated Resolved Time MRSA Comment:Resolved 07/30/2018, Infection Prevention Nares 12/15/15 12/16/2015 12/16/2015 07/30/2018 10:47 AM CLEAN ENERGY POLICY ANALYST R/O COVID-19 03/01/2020 03/01/2020 03/03/2020 1:01 AM CDT documented as of this encounter Care Teams Geophysical Laboratory Supervisor Relationship Specialty Start Date End Date Randy Ren MD [address], [place] [address] PCP - General Family Practice 01/25/15 documented as of this encounter
--- OUTSIDE RECORDS SUMMARY | 2024-11-14 19:00 | XMS_ITS | Encounter Summary ---
Author Organization [facility] Address [address] [place] [address] Care Team Providers Care Drilling Contractor Name Role Phone Randy Ren MD Primary Care Provider [phone] Encounter Details Date Type Department Care Team (Late st Contact Info) Description 07/29/2006 Emergency [facility] Emergency Department [address] [place] [phone] Luis Manuel Shelton MD [address] [address] Abdominal Pain, Unspecified Site (Primary Dx) Social History Tobacco Use Types Packs/Day Years Used Date Smoking Tobacco: Never Assessed Comments Unknown Sex and Gender Information Value Date Recorded Sex Assigned at Not on file Legal Sex Female 6:05 AM MARBLE MASON Gender Identity Not on file Sexual Orientation Not on file documented as of this encounter Plan of Treatment Not on file documented as of this encounter Procedures Procedure Name Priority Date/Time Associated Diagnosis Comments CBC WITH DIFFERENTIAL Routine 07/29/2006 3:04 PM MARBLE MASON LIPASE Routine 07/29/2006 3:04 PM MARBLE MASON COMPREHENSIVE METABOLIC PANEL Routine 07/29/2006 3:04 PM MARBLE MASON URINALYSIS MICROSCOPY ONLY Routine 07/29/2006 1:24 PM MARBLE MASON URINALYSIS W/REFLEX MICROSCOPIC Routine 07/29/2006 1:24 PM MARBLE MASON documented in this encounter Results * LIPASE (07/29/2006 3:04 PM MARBLE MASON) LIPASE 26 6 - 51 U/L INTERFACE SYSTEM Comment: As of [address] [facility] has changed testing methods. The new reference range is 6-51 The old referance range was 23-300 07/29/2006 3:04 PM MARBLE MASON Luis Manuel Shelton MD CHEMISTRY ORDERABLES Edited INTERFACE SYSTEM Refer to clinic/hospital department * (ABNORMAL) COMPREHENSIVE METABOLIC PANEL (07/29/2006 3:04 PM MARBLE MASON) GLUCOSE 112(H) 70 - 110 mg/dL INTERFACE SYSTEM BUN 10 7 - 17 mg/dL INTERFACE SYSTEM CREATININE 1.1 0.7 - 1.2 mg/dL INTERFACE SYSTEM SODIUM 139 136 - 145 mEq/L INTERFACE SYSTEM POTASSIUM 4.1 3.5 - 5.0 mEq/L INTERFACE SYSTEM CHLORIDE 104 95 - 110 mEq/L INTERFACE SYSTEM CO2 27 22 - 32 mmol/l INTERFACE SYSTEM ANION GAP 12 9 - 20 mEq/L INTERFACE SYSTEM OSMOLALITY, CALCULATED 286 275 - 295 mOsm/Kg INTERFACE SYSTEM CALCIUM 9.4 8.4 - 10.5 mg/dL INTERFACE SYSTEM TOTAL PROTEIN 7.9 6.3 - 8.2 g/dL INTERFACE SYSTEM ALBUMIN 4.6 3.5 - 5.0 g/dL INTERFACE SYSTEM GLOBULIN (CALC) 3.3 2.4 - 3.9 g/dL INTERFACE SYSTEM ALBUMIN/GLOBULIN RATIO 1.4 1.0 - 2.3 INTERFACE SYSTEM ALKALINE PHOSPHATASE 92 25 - 100 U/L INTERFACE SYSTEM AST 25 8 - 33 U/L INTERFACE SYSTEM ALT 23 4 - 36 IU/L INTERFACE SYSTEM BILIRUBIN TOTAL 0.2(L) 0.3 - 1.2 mg/dL INTERFACE SYSTEM 07/29/2006 3:04 PM MARBLE MASON Luis Manuel Shelton MD CHEMISTRY ORDERABLES Edited INTERFACE SYSTEM Refer to clinic/hospital department * (ABNORMAL) CBC WITH DIFFERENTIAL (07/29/2006 3:04 PM MARBLE MASON) WBC 3.6(L) 4.5 - 11.0 K/ul INTERFACE SYSTEM RBC 5.92(H) 4.20 - 5.40 Mil/ul INTERFACE SYSTEM HEMOGLOBIN 13.9 12.0 - 16.0 g/dL INTERFACE SYSTEM HEMATOCRIT 44.2 36.0 - 46.0 % INTERFACE SYSTEM MCV 74.7(L) 84.0 - 103.0 Fl INTERFACE SYSTEM MCH 23.5(L) 27.0 - 34.0 pg INTERFACE SYSTEM MCHC 31.4 30.0 - 35.0 g/dL INTERFACE SYSTEM RDW 15.3(H) 11.0 - 14.5 % INTERFACE SYSTEM PLATELETS 338 140 - 440 K/ul INTERFACE SYSTEM MPV 10.7 8.9 - 12.8 Fl INTERFACE SYSTEM NEUTROPHILS 66.8 42.2 - 75.2 % INTERFACE SYSTEM LYMPHOCYTES 20.2(L) 24.0 - 44.0 % INTERFACE SYSTEM MONOCYTES 11.8(H) 2.0 - 10.0 % INTERFACE SYSTEM EOSINOPHILS 0.6 0.0 - 7.0 % INTERFACE SYSTEM BASOPHILS 0.6 0.0 - 1.0 % INTERFACE SYSTEM NEUTROPHIL ABSOLUTE 2.4 2.0 - 8.0 K/uL INTERFACE SYSTEM LYMPHOCYTE ABSOLUTE 0.7(L) 1.2 - 4.0 K/ul INTERFACE SYSTEM MONOCYTE ABSOLUTE 0.4 0.1 - 0.6 K/ul INTERFACE SYSTEM EOSINOPHIL ABSOLUTE 0.0 0.0 - 0.7 K/ul INTERFACE SYSTEM BASOPHILS ABSOLUTE 0.0 0.0 - 0.2 K/ul INTERFACE SYSTEM 07/29/2006 3:04 PM MARBLE MASON Luis Manuel Shelton MD HEMATOLOGY ORDERABLES Edited INTERFACE SYSTEM Refer to clinic/hospital department * (ABNORMAL) URINALYSIS MICROSCOPY ONLY (07/29/2006 1:24 PM MARBLE MASON) WBC URINE 0-2 0 - 2 INTERFACE SYSTEM RBC UA None Seen 0 - 2 INTERFACE SYSTEM HYALINE CAST None Seen 0 - 2 INTERFA CE SYSTEM BACTERIA UA Moderate(A ) None Seen INTERFACE SYSTEM 07/29/2006 1:24 PM MARBLE MASON us Physician Sj Ed URINE ORDERABLES Edited Performing Organization Address City/[facility]/ZIP Co de Phone Number INTERFACE SYSTEM Refer to clinic/hospital department * (ABNORMAL) URINALYSIS (07/29/2006 1:24 PM MARBLE MASON) COLOR UA Yellow Straw INTERFACE SYSTEM CLARITY UA Cloudy(A) Clear INTERFACE SYSTEM LEUKOCYTE ESTERASE UA NEGATIVE NEGATIVE INTERFACE SYSTEM NITRITE UA NEGATIVE NEGATIVE INTERFACE SYSTEM PH UA 5.5 5.0 - 9.0 INTERFACE SYSTEM PROTEIN UA Trace(A) NEGATIVE INTERFACE SYSTEM Comment: As of 05 positive protein results obtained on routine urinalysis will not be confirmed by sulfosalicylic acid (SSA) precipitation. Current methodology for protein detection is highly sensitive for detection of albumin; therefore, confirmation is not necessary. GLUCOSE UA NEGATIVE NEGATIVE INTERFACE SYSTEM KETONES UA NEGATIVE NEGATIVE INTERFACE SYSTEM UROBILINOGEN UA 0.2 0.2 INTE RFACE SYSTEM BILIRUBIN UA NEGATIVE NEGATIVE INTERFA CE SYSTEM BLOOD UA NEGATIVE NEGATIVE INTERFACE SYSTEM SPECIFIC GRAVITY UA 1.028 1.005 - 1.030 INTERFACE SYSTEM MICRO EXAM Yes(A) No INTERFACE SYSTEM 07/29/2006 1:24 PM MARBLE MASON Physician Sj Ed URINE ORDERABLES Edited Performing Organization Address City/[facility] Co de Phone Number INTERFACE SYSTEM Refer to clinic/hospital department documented in this encounter Visit Diagnoses Diagnosis Abdominal pain, unspecified site- Primary documented in this encounter Additional Health Concerns Infection Onset Date Last Indicated Resolved Time MRSA Comment:Resolved 07/30/2018, Infection Prevention Nares 12/15/15 12/16/2015 12/16/2015 07/30/2018 10:47 AM MARBLE MASON R/O COVID-19 03/01/2020 03/01/2020 03/03/2020 1:01 AM CDT documented as of this encounter Care Teams Drilling Contractor Relationship Specialty Start Date End Date Randy Ren MD [address] [place] [phone] PCP - General Family Practice 01/25/15 documented as of this encounter
--- OUTSIDE RECORDS SUMMARY | 2024-11-14 19:00 | XMS_ITS | Encounter Summary ---
Author Organization [facility] Address [address] [place] [address] Care Team Providers Care Taker Off Name Role Phone Randy Ren MD Primary Care Provider [phone] Encounter Details Date Type Department Care Team (Late st Contact Info) Description 10/16/2014 Nurse Triage Report [id number] ABSTRACTION Mariela Mcdonnell, RN Social History Tobacco Use Types Packs/Day Years Used Date Smoking Tobacco: Former Cigarettes Q uit: 09/08/1988 Smokeless Tobacco: Never Alcohol Use Standard Drinks/Week Comments No 0 (1 standard drink = 0.6 oz pur e alcohol) Comments No Sex and Gender Information Value Date Recorded Sex Assigned at Not on file Legal Sex Female 6:05 AM SOLDER SPRAYER Gender Identity Not on file Sexual Orientation Not on file Occupation Industry Job Start Date Job End Date Not on file Not on file Not on file Not on file documented as of this encounter Progress Notes * Mariela Mcdonnell RN - 10/16/2014 11:14 AM CDT CHART DOCUMENTATION ONLY Call Type: Triage Call Presenting Problem: I am having rectal bleeding and abdominal pain. (Pt had Sinus surgery on Saturday10/11/2014) Report feedback to Dr. Jimmy Madera Per ED Associated Symptoms: Burning pain in stmach; passing bright red blood in stool and by itself; dizzy; slightly short of breath; BS 188; Onset: 20 minutes Location: abdomen Pain Assessment: 1 - 10 with 10 being the most severe pain 4 Treatment so far for current presenting problem: None History (Clinical Problems): Hx of anemia; Bone spur removed this week, devaited nasal septum this week; HTN; Diabetes; Seasonal Allergies; Medications: Meds reviewed Medication reactions: Allergies Reviewed <<<<<<<< TRIAGE NOTE >>>>>>>> <<<<<<<< TRIAGE/OUTCOME >>>>>>>> Guideline Title: Gastrointestinal Bleeding Recommended Disposition: Activate EMS 911 Original Inclination: Call Provider/See in 24 Intended Action: Seek care in ER Physician Contacted: No Passing red, black or tarry material from rectum AND onset of new signs and symptoms of hypovolemia ? YES documented in this encounter Plan of Treatment Not on file documented as of this encounter Visit Diagnoses Not on filedocumented in this encounter Additional Health Concerns Infection Onset Date Last Indicated Resolved Time MRSA Comment:Resolved 07/30/2018, Infection Prevention Nares 12/15/15 12/16/2015 12/16/2015 07/30/2018 10:47 AM SOLDER SPRAYER R/O COVID-19 03/01/2020 03/01/2020 03/03/2020 1:01 AM CDT documented as of this encounter Care Teams Taker Off Relationship Specialty Start Date End Date Randy Ren MD [address] [place] [address] PCP - General Family Practice 01/25/15 documented as of this encounter
--- OUTSIDE RECORDS SUMMARY | 2024-11-14 19:00 | XMS_ITS | Encounter Summary ---
Author Organization [facility] Address [address] [place] [address] Care Team Providers Care Patient Financial Rep Name Role Phone Randy Ren MD Primary Care Provider [phone] Encounter Details Date Type Department Care Team (Latest Contact Info) Description 12/29/2003 Outpatient Historical [facility] Medicine [address] [phone] Gregoria Olivarez MD [address] [place] [address] URIN TRACT INFECTION NOS (Primary Dx) Social History Tobacco Use Types Packs/Day Years Used Date Smoking Tobacco: Never Assessed Comments Unknown Sex and Gender Information Value Date Recorded Sex Assigned at Not on file Legal Sex Female 6:05 AM LOCKSTITCH SLEEVE MAKER Gender Identity Not on file Sexual Orientation Not on file documented as of this encounter Plan of Treatment Not on file documented as of this encounter Visit Diagnoses Diagnosis Urinary tract infection, site not specified- Primary documented in this encounter Additional Health Concerns Infection Onset Date Last Indicated Resolved Time MRSA Comment:Resolved 07/30/2018, Infection Prevention Nares 12/15/15 12/16/2015 12/16/2015 07/30/2018 10:47 AM LOCKSTITCH SLEEVE MAKER R/O COVID-19 03/01/2020 03/01/2020 03/03/2020 1:01 AM CDT documented as of this encounter Care Teams Patient Financial Rep Relationship Specialty Start Date End Date Randy Ren MD [address] [place] [address] PCP - General Family Practice 01/25/15 documented as of this encounter
--- OUTSIDE RECORDS SUMMARY | 2024-11-14 19:00 | XMS_ITS | Encounter Summary ---
Author Organization [facility] Address [address] [place] [address] Care Team Providers Care Customer Experience Professional Name Role Phone Randy Ren MD Primary Care Provider Encounter Details Date Type Department Care Team (Latest Contact Info) Description 05/06/2002 Outpatient Historical [address] [phone] Alondra Mehta MD [address] [place] [address], [address] ESOPHAGEAL REFLUX (Primary Dx); ABNORMAL WEIGHT GAIN Social History Tobacco Use Types Packs/Day Years Used Date Smoking Tobacco: Never Assessed Comments Unknown Sex and Gender Information Value Date Recorded Sex Assigned at Not on file Legal Sex Female 6:05 AM HAULING CONTRACTOR Gender Identity Not on file Sexual Orientation Not on file documented as of this encounter Plan of Treatment Not on file documented as of this encounter Visit Diagnoses Diagnosis Esophageal reflux- Primary Abnormal weight gain documented in this encounter Additional Health Concerns Infection Onset Date Last Indicated Resolved Time MRSA Comment:Resolved 07/30/2018, Infection Prevention Nares 12/15/15 12/16/2015 12/16/2015 07/30/2018 10:47 AM HAULING CONTRACTOR R/O COVID-19 03/01/2020 03/01/2020 03/03/2020 1:01 AM CDT documented as of this encounter Care Teams Customer Experience Professional Relationship Specialty Start Date End Date Randy Ren MD [address] [place] [address] PCP - General Family Practice 01/25/15 documented as of this encounter
--- OUTSIDE RECORDS SUMMARY | 2024-11-14 19:00 | XMS_ITS | Encounter Summary ---
Author Organization [facility] Address [address] [place] [address] Care Team Providers Care Software Requirements Engineer Name Role Phone Randy Ren MD Primary Care Provider [phone] Encounter Details Date Type Department Care Team (Latest Contact Info) Description 04/24/2004 Outpatient Historical [facility] Endoscopy [place] [address] [place] [phone] Nehemiah Rodríguez MD 10[address] [facility] [address] [place] [address] GI SYSTEM SYMPTOMS OTHER (Primary Dx) Social History Tobacco Use Types Packs/Day Years Used Date Smoking Tobacco: Never Assessed Comments Unknown Sex and Gender Information Value Date Recorded Sex Assigned at Not on file Legal Sex Female 6:05 AM HOME COORDINATOR Gender Identity Not on file Sexual Orientation [...] Nares 12/15/15 12/16/2015 12/16/2015 07/30/2018 10:47 AM HOME COORDINATOR R/O COVID-19 03/01/2020 03/01/2020 03/03/2020 1:01 AM CDT documented as of this encounter Care Teams Software Requirements Engineer Relationship Specialty Start Date End Date Randy Ren MD [address] [place] [address] PCP - General Family Practice 01/25/15 documented as of this encounter
--- OUTSIDE RECORDS SUMMARY | 2024-11-14 19:00 | XMS_ITS | Encounter Summary ---
Author Organization [facility] Address [address] [place] [address] Care Team Providers Care Dry House Worker Name Role Phone Randy Ren MD Primary Care Provider [phone] Encounter Details Date Type Department Care Team (Latest Contact Info) Description 10/10/1998 Outpatient Historical [facility] Oral and Maxillo Surgery- [address] [place] [phone] Zhou Camarena, PhD NO ADDRESS ON FILE Follow-up examination following surgery (Primary Dx) Social History Tobacco Use Types Packs/Day Years Used Date Smoking Tobacco: Never Assessed Comments Unknown Sex and Gender Information Value Date Recorded Sex Assigned at Not on file Legal Sex Female 6:05 AM MUSIC JOURNALIST Gender Identity Not on file Sexual Orientation Not on file documented as of this encounter Plan of Treatment Not on file documented as of this encounter Visit Diagnoses Diagnosis Follow-up examination following surgery- Primary documented in this encounter Additional Health Concerns Infection Onset Date Last Indicated Resolved Time MRSA Comment:Resolved 07/30/2018, Infection Prevention Nares 12/15/15 12/16/2015 12/16/2015 07/30/2018 10:47 AM MUSIC JOURNALIST R/O COVID-19 03/01/2020 03/01/2020 03/03/2020 1:01 AM CDT documented as of this encounter Care Teams Dry House Worker Relationship Specialty Start Date End Date Randy Ren MD [address] [place] [address] PCP - General Family Practice 01/25/15 documented as of this encounter
--- OUTSIDE RECORDS SUMMARY | 2024-11-14 19:00 | XMS_ITS | Encounter Summary ---
Author Organization [facility] Address [address] [place] [address] Care Team Providers Care Batch Operator Name Role Phone Randy Ren MD Primary Care Provider [phone] Encounter Details Date Type Department Care Team (Latest Contact Info) Description 05/31/2004 Outpatient Historical [facility] Medicine [place] [address] [phone] Gregoria Olivarez MD [address] [place] [address] UNSPECIFIED VIRAL INFECTION (Primary Dx) Social History Tobacco Use Types Packs/Day Years Used Date Smoking Tobacco: Never Assessed Comments Unknown Sex and Gender Information Value Date Recorded Sex Assigned at Not on file Legal Sex Female 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 Gender Identity Not on file Sexual Orientation Not on file documented as of this encounter Plan of Treatment Not on file documented as of this encounter Visit Diagnoses Diagnosis Unspecified viral infection, in conditions classified elsewhere and of unspecified site- Primary documented in this encounter Additional Health Concerns Infection Onset Date Last Indicated Resolved Time MRSA Comment:Resolved 07/30/2018, Infection Prevention Nares 12/15/15 12/16/2015 12/16/2015 07/30/2018 10:47 AM MEASUREMENT OPERATOR R/O COVID-19 03/01/2020 03/01/2020 03/03/2020 1:01 AM CDT documented as of this encounter Care Teams Batch Operator Relationship Specialty Start Date End Date Randy Ren MD [address] [place] [address] PCP - General Family Practice 01/25/15 documented as of this encounter
--- OUTSIDE RECORDS SUMMARY | 2024-11-14 19:01 | XMS_ITS | Encounter Summary ---
Author Organization [facility] Address [address] [place] [address] Care Team Providers Care Threshing Machine Operator Name Role Phone Andrea Ren Primary Care Provider [phone] Reason for Visit * Reason Comments Med Refill Encounter Details Date Type Department Care Team (Late st Contact Info) Description 06/16/2024 Refill [facility] Endocrinology [facility] [address] [facility] [address] [place] [address] AdilsonOra PA [address] [place] [address] Type 2 diabetes mellitus with hyperglycemia, with long-term current use of insulin ([facility]) Social History Tobacco Use Types Packs/Day Years Used Date Smoking Tobacco: Former Cigarettes Q uit: 09/08/1988 Passive Smoke Exposure: Past Smokeless Tobacco: Never Alcohol Use Standard Drinks/Week Comments No 0 (1 standard drink = 0.6 oz pur e alcohol) Utility Needs Answer Date Recorded In the past 12 months has [employer], gas, oil, or water company threatened to [...] often do you attend chur ch or tenriism services? 1 to 4 times per year 11/01/2023 Do you belong to any clubs o r organizations such as roman catholic groups, unions, fraternal or athletic groups, or [...] on file Legal Sex Female 2:33 AM HEEL BUILDER Gender Identity Not on file Sexual Orientation Not on file documented as of this encounter Plan of Treatment Upcoming Encounters Date Type Department Care Team (Late st Contact Info) Description 11/25/2024 11:40 AM CDT Office Visit [facility] [address] [place] [address] Andrea Ren DO [address] [place] [address] 12/02/2024 3:00 PM CDT Office Visit [facility] Headache Management [place] [address] [place] [address] Nataliia Gallegos, [facility] [address] [address] 12/17/2024 11:00 AM CDT Appointment [facility] Pulmonary Function Testing [address] [place] [address] Andrea Ren DO [address] [place] [address] 12/17/2024 1:10 PM CDT Office Visit [facility] [address] [place] [address] Danita Smith [facility] [address] [place] [address] 02/03/2025 10:00 AM CDT Office Visit [facility] Urology- [place] [address] Entrance B, 3rd [place] [address] Kylie Villafuerte, THERESA [address] [place] [address] 03/26/2025 11:10 AM CDT Appointment [facility] [address] [place] [address] Melissa Anand MD [address] [place] [address] 03/30/2025 11:00 AM CDT Office Visit [facility] Gastroenterology- [place] [address] [place] [address] Corin De Leon NP [address] [facility] [address] [place] [address] 05/14/2025 11:20 AM HEEL BUILDER Office Visit [facility] Endocrinology [facility] [address] [place] [address] Ora De Anda PA [address] [place] [address] 07/12/2025 10:45 AM HEEL BUILDER Office Visit [facility] Sleep Center [address] [facility] [address] [place] [address] Dorys Cano, TACK PICKER [address] [facility] [address] [place] [address] 08/25/2025 8:00 AM CDT Hospital Encounter [facility] Endoscopy [address] [place] [address] Aayush Jc MD [address] [facility] [address] [place] [address] 08/25/2025 8:00 AM CDT - 08/25/2025 8:20 AM CDT Surgery [facility] Endoscopy [address] [place] [address] Aayush Jc MD [address] [place] [address] COLONOSCOPY 11/11/2025 10:50 AM CDT Office Visit [facility] Gopal James Rekha [address] [place] [address] Melissa Anand MD [address] [place] [address] Scheduled Procedures Name Priority Associated Diagnoses Date/Ti me COLONOSCOPY Iron deficiency anemia, unspecified iron deficiency anemia type Chronic idiopathic constipation Colon cancer screening 08/25/2025 8:00 AM CDT documented as of this encounter Visit Diagnoses Diagnosis Type 2 diabetes mellitus with hyperglycemia, with long-term current use of insulin ([facility]) documented in this encounter Additional Health Concerns Infection Onset Date Last Indicated Resolved Time R/O COVID-19 10/27/2024 10/27/2024 10/27/2024 6:45 PM CDT Assessment Noted Time PHQ-9 Depression Total Score: 6 03/31/20 8:00 AM CDT documented as of this encounter Care Teams Threshing Machine Operator Relationship Specialty Start Date End Date Andrea Ren DO [address] [place] [address] PCP - General Family Practice 08/03/21 documented as of this encounter
--- OUTSIDE RECORDS SUMMARY | 2024-11-14 19:01 | XMS_ITS | Encounter Summary ---
Author Organization [facility] Address [address] [place] [address] Care Team Providers Care Spare Parts Clerk Name Role Phone Andrea Ren DO Primary Care Provider Encounter Details Date Type Department Care Team (Latest Contact Info) Description 07/09/2024 Results Follow-Up [facility] Medicine [place] [address] [place] [address] Andrea Ren DO [address] [address] CBC WITH DIFFERENTIAL, COMPREHENSIVE METABOLIC PANEL, HEMOGLOBIN A1C, Additional followed-up results: 5 Social History Tobacco Use Types Packs/Day Years Used Date Smoking Tobacco: Former Cigarettes Q uit: 09/08/1988 Passive Smoke Exposure: Past Smokeless Tobacco: Never Alcohol Use Standard Drinks/Week Comments No 0 (1 standard drink = 0.6 oz pur e alcohol) Utility Needs Answer Date Recorded In the past 12 months has [employer] electric, gas, oil, or water company threatened [...] often do you attend chur ch or orthodox services? 1 to 4 times per year 11/01/2023 Do you belong to any clubs o r organizations such as sikh groups, unions, fraternal or athletic groups, or [...] on file Legal Sex Female 2:33 AM SMT MACHINE OPERATOR Gender Identity Not on file Sexual Orientation Not on file documented as of this encounter Plan of Treatment Upcoming Encounters Date Type Department Care Team (Late st Contact Info) Description 11/25/2024 11:40 AM CDT Office Visit [facility] [address] [place] [address] Andrea Ren DO [address] [place] [address] 12/02/2024 3:00 PM CDT Office Visit [facility] Headache Management [place] [address] [place] [address] Nataliia Gallegos, MACHINE DESIGN CHECKER [address] [place] [address] 12/17/2024 11:00 AM CDT Appointment [facility] Pulmonary Function Testing [address] [place] [place] [address] Andrea Ren DO [address] [place] [address] 12/17/2024 1:10 PM CDT Office Visit [facility] [address] [place] [address] Danita Smith [facility] [address] [place] [address] 02/03/2025 10:00 AM CDT Office Visit [facility] Urology- [place] [address]tr[address], 3rd [place] [address] Kylie Villafuerte, THERESA [address] [place] [address] 03/26/2025 11:10 AM CDT Appointment [facility] [address] [place] [address] Melissa Anand MD [address] [place] [address] 03/30/2025 11:00 AM CDT Office Visit [facility] Gastroenterology- [place] [address] [place] [address] Corin De Leon NP [address] [facility] [address] [place] [address] 05/14/2025 11:20 AM SMT MACHINE OPERATOR Office Visit [facility] [address] [place] [address] Ora De Anda PA [address] [place] [address] 07/12/2025 10:45 AM SMT MACHINE OPERATOR Office Visit [facility] Sleep Center [address] [facility] [address] [place] [address] Dorys Cano, LILLIE [address] [facility] [address] [place] [address] 08/25/2025 8:00 AM CDT Hospital Encounter [facility] Endoscopy [address] [place] [address] Aayush Jc MD [address] [facility] [address] [place] [address] 08/25/2025 8:00 AM CDT - 08/25/2025 8:20 AM CDT Surgery [facility] Endoscopy [address] [place] [address] Aayush Jc MD [address] [place] [address] COLONOSCOPY 11/11/2025 10:50 AM CDT Office Visit [facility] KLAUSRobertoAshu James Rekha [address] [place] [address] Melissa Anand MD [address] [place] [address] Scheduled Procedures Name Priority Associated [...] Noted Time PHQ-9 Depression Total Score: 6 07/02/19 25 10:47 AM SMT MACHINE OPERATOR documented as of this encounter Care Teams Spare Parts Clerk Relationship Specialty Start Date End Date Andrea Ren DO [address] [place] [address] PCP - General Family Practice 08/03/21 documented as of this encounter
--- NOTE | 2024-11-14 19:20 | ECG_ITS ---
[facility] Test Date: 2024-11-15 Pat Name: Maya Figueroa Department: Room: 254 Gender: Female Recruiter Specialist: : 1970 Requested By: Carol Choi Order Number: [id number] Reading MD: VIRIDIANA DELEON Measurements Intervals [place] Rate: 94 P: 37 FL: 155 QRS: 1 QRSD: 107 T: 56 QT: 347 QTc: 435 Interpretive Statements SINUS RHYTHM NONSPECIFIC T-WAVE ABNORMALITY Compared to ECG 11/14/2024 15:44:08 Sinus tachycardia no longer present T-wave abnormality still present Electronically Signed On 11-18-2024 23:02:09 CDT by VIRIDIANA DELEON [email or web address]
[2024-11-14 19:41] LABS: Troponin 5 6HR 18.44 ng/L (0-10); Troponin 5 6HR Delta 1.44 ng/L (0-12)
--- NOTE | 2024-11-14 19:49 | PC.NURSE ---
Pt states the dinner tray she was served is disgusting. This nurse offered pt iza and luis angel, pt accepted and thankful.
[2024-11-14] MEDS: atorvastatin 40 mg Tablet PO (20:21)
[2024-11-14] MEDS: acetaminophen 325 mg Tablet 650 MG PO (20:21)
[2024-11-14] MEDS: vancomycin 125 mg Capsule PO (20:21)
[2024-11-14] MEDS: gabapentin 400 mg Capsule 800 MG PO (20:21)
[2024-11-14] MEDS: nortriptyline 25 mg Capsule 75 MG PO (20:21)
[2024-11-14] MEDS: ropinirole 1 mg Tablet 2 MG PO (20:22)
[2024-11-14 21:05] LABS: Glucose Point of Care 200 mg/dL (70-110)
[2024-11-14] MEDS: insulin glargine 100 units/1 mL 45 UNIT SUBCUT (21:25)
[2024-11-15] VITALS (11 sets, daily range): BP systolic 108–117; BP diastolic 63–72; PULSE 85–98; RESP 14–22; TEMP 36.3–37.1; O2SAT 93–100
[2024-11-15] MEDS: vancomycin 125 mg Capsule PO ×4 (01:24→20:12)
[2024-11-15] MEDS: acetaminophen 325 mg Tablet 650 MG PO ×3 (05:02→21:53)
[2024-11-15 05:41] LABS: Basophils # 0.1 10^3/uL (0.0-0.1); Basophils % 0.5 %; Eosinophils # 0.2 10^3/uL (0.0-0.8); Eosinophils % 2.5 %; Hematocrit 36.5 % (36-47); Lymphocytes % 10.4 %; Mean Corpuscular HGB Conc 29.9 g/dL (30-55); Mean Corpuscular Hemoglobin 23.9 pg (27-33); Monocytes # 0.9 10^3/uL (0.2-0.9); Monocytes % 9.3 %; Neutrophils % 76.9 %; Nucleated Red Blood Cells % 0 %; Platelet Count 221 10^3/cmm (157-399); Red Blood Count 4.56 10^6/uL (3.85-5.65); Red Cell Distribution Width 18.6 % (12.1-15.1); White Blood Count 9.63 10^3/uL (3.29-11.43)
[2024-11-15 06:05] LABS: Alanine Aminotransferase 22 U/L (0-33); Alkaline Phosphatase 128 U/L (35-105); Aspartate Amino Transferase 16 U/L (0-32); Blood Urea Nitrogen 14 mg/dL (6-20); Calcium 8.5 mg/dL (8.5-10.5); Carbon Dioxide 26 mmol/L (22-29); Creatinine Clr Calc Pharmacy 96.9439; Globulin 3.3 g/dL (1.3-4.6); Glomerular Filtration Rate 65.5 mL/min (90-130); Glucose 151 mg/dL (65-115); Magnesium 1.6 mg/dL (1.7-2.3); Phosphorus 3.3 mg/dL (2.5-4.5); Total Bilirubin 0.3 mg/dL (0.15-1.2); Total Protein 6.3 g/dL (6.6-8.7)
[2024-11-15 06:22] LABS: Glucose Point of Care 150 mg/dL (70-110)
[2024-11-15 06:27] LABS: Anion Gap 13.8 (5-19); Chloride 100 mmol/L (98-107); Osmolality Calculated 285 mOsm/kg (285-295); Potassium 3.8 mmol/L (3.5-5.1); Sodium 136 mmol/L (136-145)
[2024-11-15] MEDS: phenyleph-mineral oil-petrolat Oint 28 gm 1 APPLIC TOPICAL (06:31)
[2024-11-15] MEDS: insulin lispro 100 unit/1 mL SUBCUT (08:17)
[2024-11-15] MEDS: venlafaxine ER (24HR) 75 mg Capsule 225 MG PO (08:18)
[2024-11-15] MEDS: gabapentin 400 mg Capsule 800 MG PO ×3 (08:18→20:12)
[2024-11-15] MEDS: baclofen 10 mg Tablet 5 MG PO ×2 (08:18→16:58)
[2024-11-15] MEDS: ARIPiprazole 10 mg Tablet 20 MG PO (08:18)
[2024-11-15] MEDS: benztropine 1 mg Tablet PO ×2 (08:18→16:58)
[2024-11-15] MEDS: insulin glargine 100 units/1 mL 45 UNIT SUBCUT ×2 (08:49→16:58)
[2024-11-15 11:33] LABS: Glucose Point of Care 119 mg/dL (70-110)
--- NOTE | 2024-11-15 14:42 | P.PN_ITS ---
Subjective 2 Subjective: Patient was seen this morning, she continues to complain of diarrhea, fatigue, malaise, no fevers, no chills, does have generalized abdominal pain, is passing gas, no bloody or black stools Vitals/I&O/Wt Last Vital Signs Temp 98.0 F 11/15/24 11:59 Pulse 91 11/15/24 11:59 Resp 17 11/15/24 11:59 BP 111/71 11/15/24 11:59 Pulse Ox 98 11/15/24 11:59 O2 Del Method Nasal Cannula 11/15/24 11:59 O2 Flow Rate 1 11/15/24 08:09 FiO2 28 11/15/24 04:00 11/14/24 11/15/24 11/15/24 22:59 06:59 14:59 Intake Total 1100 / 1100 840 / 840 Balance 1100 / 1100 840 / 840 Weight last 48 hrs Weight 123.422 kg Weight 121.109 kg Weight 121.109 kg Physical Exam 2 Const: COMMON NORMALS: no acute distress and patient oriented x3 Resp: COMMON NORMALS: normal respiratory effort, No retractions, No use of accessory muscles and clear to auscultation bilaterally AUSCULTATION: clear to auscultation bilaterally Cardio: COMMON NORMALS: regular rate, regular rhythm, S1 normal heart sound present and S2 normal heart sound present RATE: regular rate RHYTHM: r egular rhythm HEART SOUNDS: S1 normal heart sound present and S2 normal heart sound present GI: COMMON NORMALS: Normal to inspection, nondistended, normoactive bowel sounds present and non-tender Extremity: COMMON NORMALS: no pedal edema Neuro: COMMON NORMALS: patient oriented x3 Psych: COMMON NORMALS: mental status grossly normal Data 11/15/24 04:44 11/15/24 04:44 Micro: Microbiology 11/14/24 13:29 Blood Culture - Preliminary Blood NEGATIVE TO DATE 11/14/24 13:28 Blood Culture - Preliminary Blood NEGATIVE TO DATE 11/14/24 13:30 Stool Lactoferrin - Final Stool A&P Assessment and plan (1) C. difficile colitis: (2) Uncontrolled type 2 diabetes mellitus: (3) Diastolic heart failure: (4) Pulmonary hypertension: (5) Chronic post-traumatic stress disorder: (6) COPD (chronic obstructive pulmonary disease): (7) Sleep apnea treated with nocturnal BiPAP: (8) Hypersomnia: Plan C. difficile colitis ct abdomen and pelvis IMPRESSION: 1. Increased fluid content throughout the colon with mild diffuse thickening of the wall suggesting colitis or other diarrheal process. There is stranding of the fat surrounding the cecum and proximal ascending colon which could be related to the colitis. Findings could also potentially be related to appendicitis, however the appendix is not identified with certainty on this exam. There are several subcentimeter mesenteric lymph nodes also noted in the right lower quadrant which could be related to mesenteric adenitis. Please correlate clinically. 2. Mildly dilated small bowel loop in the central pelvis with air-fluid levels suggesting focal ileus. Remaining small bowel loops are normal in caliber. - Isolation precautions - Continue p.o. vancomycin - History of diastolic CHF, has received fluid therapy in the emergency room, appears euvolemic will hold off of further fluid therapy Sepsis febrile state, tachycardia, leukocytosis, elevated lactic acid, elevated creatinine - from C. difficile colitis - Blood cultures pending - Urinalysis ordered - Bilateral calf pain, venous ultrasound negative for dvt Poorly controlled type 2 diabetes - Resume home Lantus 45 units twice daily - Moderate dose sliding scale Chronic respiratory failure, obstructive sleep apnea, continue home BiPAP Full code Lovenox for DVT prophylaxis PDMP PDMP Reviewed: Not Reviewed Attestations 2 Medical Necessity Statement*: Patient requires hospitalization for C. difficile colitis Diagnoses C. difficile colitis A04.72 Uncontrolled type 2 diabetes mellitus Diastolic heart failure I50.30 Pulmonary hypertension I27.20 Chronic post-traumatic stress disorder F43.12 COPD (chronic obstructive pulmonary disease) J44.9 Sleep apnea treated with nocturnal BiPAP G47.30 Hypersomnia G47.10
[2024-11-15 14:46] LABS: Bilirubin Urine Negative (Negative); Blood Urine 1+ (Negative); Glucose Urine UA 3+ (Normal); Ketones Urine Negative (Negative); Leukocyte Esterase Urine 2+ (Negative); Nitrate Urine Negative (Negative); Protein Urine 1+ (Negative); Urine Appearance Turbid (CLEAR); Urine Color Yellow (Yellow); Urobilinogen Urine 0.2 mg/dL (Negative)
[2024-11-15 14:55] LABS: UA Manual Slide Review YES; UA Slide Review UA Slide Review Perf
[2024-11-15 15:03] LABS: Add Urine Microscopic? YES; RBC Urine 0-4 /hpf (0-2)
[2024-11-15 15:04] LABS: Add Urine Culture? Yes; Bacteria Urine 1+ /hpf; Squamous Epithelial Cell Urine 0-4 /hpf (0-5)
--- NOTE | 2024-11-15 16:34 | USR_ITS ---
PROCEDURE INFORMATION: Exam: US Duplex Lower Extremity Veins, Bilateral Exam date and time: 11/15/2024 7:47 AM Age: 53 years old Clinical indication: Swelling (edema) of limb; Lower extremity, bilateral TECHNIQUE: Imaging protocol: Real-time duplex ultrasound of the bilateral extremities with 2-D jade scale, color Doppler flow and spectral waveform analysis including responses to compression and other maneuvers (when performed) with image documentation. Complete exam focused on the lower extremity veins. COMPARISON: No relevant prior studies available. FINDINGS: Right deep veins: Unremarkable. The common femoral, femoral, proximal profunda femoral, popliteal, posterior tibial and peroneal veins are patent without thrombus. Normal Doppler waveforms. Normal compressibility and/or augmentation response. Left deep veins: Unremarkable. The common femoral, femoral, proximal profunda femoral, popliteal, posterior tibial and peroneal veins are patent without thrombus. Normal Doppler waveforms. Normal compressibility and/or augmentation response. Superficial veins: Greater saphenous veins at the saphenofemoral junctions are patent bilaterally without thrombus. Soft tissues: Unremarkable. US/CV venous duplex [facility] [id number] IMPRESSION: No sonographic evidence of deep venous thrombosis.
[2024-11-15 16:36] LABS: Glucose Point of Care 144 mg/dL (70-110)
[2024-11-15] MEDS: enoxaparin 40 mg/0.4 mL Syringe SUBCUT (16:57)
[2024-11-15] MEDS: HYDROcodone-acetaminophen 5-325 mg Tablet 1 TAB PO (16:58)
[2024-11-15] MEDS: pantoprazole 40 mg SDV IVP (16:58)
[2024-11-15] MEDS: atorvastatin 40 mg Tablet PO (20:11)
[2024-11-15] MEDS: nortriptyline 25 mg Capsule 75 MG PO (20:11)
[2024-11-15] MEDS: ropinirole 1 mg Tablet 2 MG PO (20:12)
[2024-11-15 20:14] LABS: Glucose Point of Care 133 mg/dL (70-110)
[2024-11-15] MEDS: fluconazole 100 mg Tablet PO (22:55)
[2024-11-16 00:42] VITALS: BP 110/70; PULSE 74; RESP 18; TEMP 36.6; O2SAT 94
[2024-11-16] MEDS: vancomycin 125 mg Capsule PO ×2 (01:16→08:34)
[2024-11-16 02:30] VITALS: PULSE 84; RESP 16; O2SAT 97
[2024-11-16 03:48] VITALS: BP 107/68; PULSE 89; TEMP 36.9; O2SAT 98
[2024-11-16 04:32] VITALS: PULSE 88
[2024-11-16] MEDS: HYDROcodone-acetaminophen 5-325 mg Tablet 1 TAB PO (04:56)
[2024-11-16 06:41] LABS: Basophils % 0.5 %; Eosinophils # 0.3 10^3/uL (0.0-0.8); Eosinophils % 5.2 %; Hematocrit 35.8 % (36-47); Lymphocytes # 0.8 10^3/uL (0.8-4.8); Lymphocytes % 12.1 %; Mean Corpuscular HGB Conc 29.9 g/dL (30-55); Mean Corpuscular Hemoglobin 23.9 pg (27-33); Mean Corpuscular Volume 80.1 fl (85-98); Mean Platelet Volume 10.9 fL (7.4-10.4); Monocytes # 0.6 10^3/uL (0.2-0.9); Monocytes % 9.4 %; Neutrophils # 4.59 10^3/uL (1.8-7.7); Neutrophils % 72.2 %; Nucleated Red Blood Cells % 0 %; Platelet Count 213 10^3/cmm (157-399); Red Blood Count 4.47 10^6/uL (3.85-5.65); Red Cell Distribution Width 18.5 % (12.1-15.1); White Blood Count 6.36 10^3/uL (3.29-11.43)
[2024-11-16 06:46] LABS: Glucose Point of Care 147 mg/dL (70-110)
[2024-11-16 07:00] LABS: Alanine Aminotransferase 21 U/L (0-33); Albumin Level 3.1 g/dL (3.5-5.2); Alkaline Phosphatase 124 U/L (35-105); Chloride 99 mmol/L (98-107); Potassium 3.8 mmol/L (3.5-5.1); Sodium 137 mmol/L (136-145)
[2024-11-16 07:13] LABS: Anion Gap 13.8 (5-19); Aspartate Amino Transferase 17 U/L (0-32); Blood Urea Nitrogen 7 mg/dL (6-20); Calcium 8.6 mg/dL (8.5-10.5); Carbon Dioxide 28 mmol/L (22-29); Creatinine Clr Calc Pharmacy 109.5775; Globulin 3.4 g/dL (1.3-4.6); Glucose 147 mg/dL (65-115); Magnesium 1.8 mg/dL (1.7-2.3); Osmolality Calculated 285 mOsm/kg (285-295); Phosphorus 3.1 mg/dL (2.5-4.5); Total Bilirubin 0.3 mg/dL (0.15-1.2); Total Protein 6.5 g/dL (6.6-8.7)
[2024-11-16 08:00] VITALS: BP 112/75; PULSE 91; RESP 17; TEMP 36.6; O2SAT 96
--- NOTE | 2024-11-16 08:31 | PM.DCS ---
Discharge Providers Date of Admission: 11/14/24 16:12 Date of Discharge: November 16, 2024 Attending Provider at Admission: Yonatan Reinoso MD Attending Provider at Discharge: Yonatan Reinoso MD Primary Care Provider: Andrea Ren DO Diagnoses at Discharge Discharge Diagnosis (1) C. difficile colitis: Status: Acute (2) Uncontrolled type 2 diabetes mellitus: Status: Acute (3) Diastolic heart failure: Status: Acute (4) Pulmonary hypertension: Status: Acute (5) Chronic post-traumatic stress disorder: Status: Acute (6) COPD (chronic obstructive pulmonary disease): Status: Acute (7) Sleep apnea treated with nocturnal BiPAP: Status: Acute (8) Hypersomnia: Status: Acute Reason for Visit Reason for Visit: diarrhea, n/v Hospital Course Hospital Course Maya Figueroa is a 53 year old female with a past medical history of struct of sleep apnea on BiPAP, metabolic syndrome, diastolic CHF, type 2 diabetes, recent history of hospitalization for right lower lobe pneumonia, who presents [facility] due to nausea, vomiting, abdominal pain, diarrhea for the last 3 days. Currently patient alert and oriented x 3, following all commands, she does report feeling febrile temperature 100.1, heart rates were in the 130s in the emergency room, currently 110, sinus rhythm, does report lightheadedness, no dizziness, no chest pain, no palpitations, she tells me that she completed antibiotics that she was sent home on Patient was admitted to [facility] for C. difficile colitis, managed as inpatient, received p.o. vancomycin therapy, she overall clinically improved, diarrhea resolved, will be discharged on p.o. vancomycin, instructions for handwashing to decrease risk of fecal oral transmission, follow-up with primary care provider Sepsis secondary to C. difficile colitis, resolved She did have a UTI on discharge discharged on cefdinir ct abdomen and pelvis IMPRESSION: 1. Increased fluid content throughout the colon with mild diffuse thickening of the wall suggesting colitis or other diarrheal process. There is stranding of the fat surrounding the cecum and proximal ascending colon which could be related to the colitis. Findings could also potentially be related to appendicitis, however the appendix is not identified with certainty on this exam. There are several subcentimeter mesenteric lymph nodes also noted in the right lower quadrant which could be related to mesenteric adenitis. Please correlate clinically. 2. Mildly dilated small bowel loop in the central pelvis with air-fluid levels suggesting focal ileus. Remaining small bowel loops are normal in calibe - Denies any abdominal pain on discharge - Having adequate bowel movement - No nausea or vomiting - Hydrate well, advance diet as tolerated - If any recurrent abdominal pain go to emergency room Physical Exam Const: COMMON NORMALS: no acute distress and patient oriented x3 Resp: COMMON NORMALS: normal respiratory effort, No retractions, No use of accessory muscles and clear to auscultation bilaterally AUSCULTATION: clear to auscultation bilaterally Cardio: COMMON NORMALS: regular rate, regular rhythm, S1 normal heart sound present and S2 normal heart sound present RATE: regular rate RHYTHM: regular rhythm HEART SOUNDS: S1 normal heart sound present and S2 normal heart sound present GI: COMMON NORMALS: Normal to inspection, nondistended, normoactive bowel sounds present and non-tender Extremity: COMMON NORMALS: no pedal edema Neuro: COMMON NORMALS: patient oriented x3 Psych: COMMON NORMALS: mental status grossly normal Discharge Data Studies Completed and Pending Completed Studies During Hospitalization Category Date Time Status CTA chest CT abdomen pelvis [CT Angio Chest + Abdomen Cat Scan 11/14/24 14:41 Completed Pelvis w/ contrast; 81117 + 26180] Stat XR chest 1V portable [id number] Stat Exams 11/14/24 13:20 [place] [id number] Stat Ultrasound 11/15/24 16:34 Completed Pending at discharge Category Date Time Status Blood Culture Stat Lab 11/14/24 13:29 Results Complete Blood Count w/Auto AM LABS Lab 11/17/24 04:00 Ordered Comprehensive Metabolic Panel AM LABS Lab 11/17/24 04:00 Ordered Magnesium AM LABS Lab 11/17/24 04:00 Ordered Phosphorus AM LABS Lab 11/17/24 04:00 Ordered Stool Culture - Enteric [Salmonella / Shigella / Campy] Lab 11/14/24 13:30 Received Routine Urine Culture Stat Lab 11/15/24 14:30 Received Radiology Impressions Chest X-Ray 11/14/24 13:20 IMPRESSION: No acute findings. Chest/Abdomen/Pelvis CT 11/14/24 14:41 IMPRESSION: 1. Markedly improved right lower lobe pneumonia with minimal residual infiltrate remaining at the right lung base. 2. Mild hazy density throughout the lungs which may represent mild diffuse inflammation or pulmonary vascular congestion. 3. No central pulmonary embolism seen. Evaluation of the segmental and subsegmental vessels is limited due suboptimal contrast opacification and mild patient breathing motion artifact. A small pulmonary embolism cannot be excluded on this exam. 4. Evidence for old granulomatous disease. IMPRESSION: 1. Increased fluid content throughout the colon with mild diffuse thickening of the wall suggesting colitis or other diarrheal process. There is stranding of the fat surrounding the cecum and proximal ascending colon which could be related to the colitis. Findings could also potentially be related to appendicitis, however the appendix is not identified with certainty on this exam. There are several subcentimeter mesenteric lymph nodes also noted in the right lower quadrant which could be related to mesenteric adenitis. Please correlate clinically. 2. Mildly dilated small bowel loop in the central pelvis with air-fluid levels suggesting focal ileus. Remaining small bowel loops are normal in caliber. 3. Hepatomegaly with fatty infiltration. 4. Splenomegaly. ADDENDUM: 11/14/24 9047 THIS REPORT CONTAINS FINDINGS THAT MAY BE CRITICAL TO PATIENT CARE. The findings were verbally communicated via telephone conference with RHONA ANN at 5:35 PM CDT on 11/14/2024. The findings were acknowledged and understood. Venous Duplex 11/15/24 16:34 IMPRESSION: No sonographic evidence of deep venous thrombosis. Laboratory Results WBC 6.36 10^3/uL (3.29-11.43) 11/16/24 05:40 RBC 4.47 10^6/uL (3.85-5.65) 11/16/24 05:40 Hgb 10.70 g/dL (11.27-16.99) L 11/16/24 05:40 Hct 35.8 % (36-47) L 11/16/24 05:40 MCV 80.1 fl (85-98) L 11/16/24 05:40 MCH 23.9 pg (27-33) L 11/16/24 05:40 MCHC 29.9 g/dL (30-55) L 11/16/24 05:40 RDW 18.5 % (12.1-15.1) H 11/16/24 05:40 Plt Count 213 10^3/cmm (157-399) 11/16/24 05:40 MPV 10.9 fL (7.4-10.4) H 11/16/24 05:40 Neut % (Auto) 72.2 % 11/16/24 05:40 Lymph % (Auto) 12.1 % 11/16/24 05:40 [place] % (Auto) 9.4 % 11/16/24 05:40 Eos % (Auto) 5.2 % 11/16/24 05:40 Baso % (Auto) 0.5 % 11/16/24 05:40 Neut # (Auto) 4.59 10^3/uL (1.8-7.7) 11/16/24 05:40 Lymph # (Auto) 0.8 10^3/uL (0.8-4.8) 11/16/24 05:40 [place] # (Auto) 0.6 10^3/uL (0.2-0.9) 11/16/24 05:40 Eos # (Auto) 0.3 10^3/uL (0.0-0.8) 11/16/24 05:40 Baso # (Auto) 0.0 10^3/uL (0.0-0.1) 11/16/24 05:40 Nucleated RBC % (auto) 0 % 11/16/24 05:40 Nucleated RBCs # 0.0 /100WBC 11/16/24 05:40 Sodium 137 mmol/L (136-145) 11/16/24 05:40 Potassium 3.8 mmol/L (3.5-5.1) 11/16/24 05:40 Chloride 99 mmol/L (98-107) 11/16/24 05:40 Carbon Dioxide 28 mmol/L (22-29) 11/16/24 05:40 Anion Gap 13.8 (5-19) 11/16/24 05:40 BUN 7 mg/dL (6-20) 11/16/24 05:40 Creatinine 0.8 mg/dL (0.5-0.9) 11/16/24 05:40 GFR Calculation 75.0 mL/min (90-130) L 11/16/24 05:40 Glucose 147 mg/dL (65-115) H 11/16/24 05:40 POC Glucose 147 mg/dL (70-110) H 11/16/24 06:37 Estimat Average Glucose Cancelled 11/14/24 13:22 Hemoglobin A1c Cancelled 11/14/24 13:22 Calculated Osmolality 285 mOsm/kg (285-295) 11/16/24 05:40 Lactic Acid 2.4 mmol/L (0.5-2.2) H 11/14/24 13:20 Lactic Acid (Sepsis) 1.5 mmol/L (0.5-2.2) 11/14/24 15:30 Calcium 8.6 mg/dL (8.5-10.5) 11/16/24 05:40 Phosphorus 3.1 mg/dL (2.5-4.5) 11/16/24 05:40 Magnesium 1.8 mg/dL (1.7-2.3) 11/16/24 05:40 Total Bilirubin 0.3 mg/dL (0.15-1.2) 11/16/24 05:40 AST 17 U/L (0-32) 11/16/24 05:40 ALT 21 U/L (0-33) 11/16/24 05:40 Alkaline Phosphatase 124 U/L (35-105) H 11/16/24 05:40 Troponin T Baseline 17 ng/L (0-10) H 11/14/24 13:20 Troponin T 120 Minute 20.80 ng/L (0-10) H 11/14/24 15:30 Delta Troponin T 3.80 ABS# (0-10) 11/14/24 15:30 Troponin T Hi Sens 6Hr 18.44 ng/L (0-10) H 11/14/24 19:19 Troponin T Hi Sens 6Hr Delta 1.44 ng/L (0-12) 11/14/24 19:19 NT-Pro-B Natriuret Pep 176 pg/mL (0-125) H 11/14/24 13:20 Total Protein 6.5 g/dL (6.6-8.7) L 11/16/24 05:40 Albumin 3.1 g/dL (3.5-5.2) L 11/16/24 05:40 Globulin 3.4 g/dL (1.3-4.6) 11/16/24 05:40 Triglycerides 134 mg/dL (0-150) 11/14/24 13:22 Cholesterol 98 mg/dL (0-200) 11/14/24 13:22 LDL Cholesterol, Calc 44 mg/dL (50-129) L 11/14/24 13:22 HDL Cholesterol 27 mg/dL (60-100) L 11/14/24 13:22 LDL/HDL Ratio 1.63 RATIO (0.00-3.22) 11/14/24 13:22 Cholesterol/HDL Ratio 3.63 mg/dL (0.0-4.40) 11/14/24 13:22 Lipase 16 U/L (13-60) 11/14/24 13:20 Urine Color Yellow (Yellow) 11/15/24 14:30 Urine Appearance Turbid (CLEAR) A 11/15/24 14:30 Urine pH 6.0 (5-7) 11/15/24 14:30 Ur Specific [place] 1.050 (1.005-1.030) H 11/15/24 14:30 Urine Protein 1+ (Negative) A 11/15/24 14:30 Urine Glucose (UA) 3+ (Normal) H 11/15/24 14:30 Urine Ketones Negative (Negative) 11/15/24 14:30 Urine Blood 1+ (Negative) A 11/15/24 14:30 Urine Nitrate Negative (Negative) 11/15/24 14:30 Urine Bilirubin Negative (Negative) 11/15/24 14:30 Urine Urobilinogen 0.2 mg/dL (Negative) 11/15/24 14:30 Ur Leukocyte Esterase 2+ (Negative) A 11/15/24 14:30 Urine RBC 0-4 /hpf (0-2) H 11/15/24 14:30 Urine WBC 10-15 /hpf (0-5) H 11/15/24 14:30 Ur Squamous Epith Cells 0-4 /hpf (0-5) H 11/15/24 14:30 Amorphous Sediment Not Reportable 11/15/24 14:30 Urine Bacteria 1+ /hpf (NONE) H 11/15/24 14:30 Urine Yeast 2+ /hpf H 11/15/24 14:30 C. difficile (PCR) Positive (Negative) H 11/14/24 13:30 C.difficile Tox Confrm Positive (Negative) H 11/14/24 13:30 Vitals Last Vital Signs Temp 97.8 F 11/16/24 08:00 Pulse 91 11/16/24 08:00 Resp 17 11/16/24 08:00 BP 112/75 11/16/24 08:00 Pulse Ox 96 11/16/24 08:00 O2 Del Method Nasal Cannula 11/16/24 08:00 O2 Flow Rate 2 11/15/24 20:14 FiO2 28 11/16/24 02:30 Discharge Plan Discharge Patient Disposition: Home Condition: Stable Prescriptions: New vancomycin 125 mg Capsule 125 mg PO Q6H 8 Days Qty: 32 0RF cefdinir 300 mg capsule 300 mg PO BID 4 Days Qty: 8 0RF hydrocodone-acetaminophen 5-325 mg tablet 1 tab PO BID PRN (Reason: pain) 5 Days Qty: 10 0RF Continued Jardiance 25 mg tablet 25 mg PO QAM Linzess 290 mcg capsule 290 mcg PO QAM montelukast [Singulair] 10 mg tablet 10 mg PO DAILY pantoprazole [Protonix] 40 mg tablet,delayed release (DR/EC) 40 mg PO BID ropinirole 1 mg tablet 2 mg PO BEDTIME meclizine [Dramamine (meclizine)] 25 mg tablet 25 mg PO TID PRN (Reason: motion sickness) Qty: 20 0RF ondansetron 4 mg tablet,disintegrating 4 mg PO Q6H PRN (Reason: nausea and vomiting) Qty: 12 0RF Rx Instructions: 340b please venlafaxine [Effexor XR] 150 mg capsule,extended release 24hr 150 mg PO QAM 30 Days Qty: 30 5RF metformin 1,000 mg 1,000 mg PO BID acetaminophen 500 mg Tablet 500 mg PO QID PRN (Reason: Pain) atorvastatin 40 mg 40 mg PO BEDTIME gabapentin 600 mg Tablet 800 mg PO TID Rx Instructions: Take 2 400mg capsules by mouth 3 times a day cetirizine 10 mg Tablet 10 mg PO DAILY baclofen 10 mg 5 mg PO BID docusate sodium 100 mg 100 mg PO BID epinephrine 0.3 mg 0.3 mg IM PRN PRN (Reason: anaphylaxis) glimepiride 4 mg 4 mg PO BID venlafaxine 75 mg capsule,extended release 24hr 75 mg PO DAILY cholecalciferol (vitamin D3) 10 mcg (400 unit) Tablet See Rx Instructions .ROUTE .COMPLEX Rx Instructions: Patient does not know current dose. Patient states that she takes Vit D3 daily. insulin lispro [Humalog KwikPen Insulin] 100 unit/mL insulin pen See Rx Instructions .ROUTE .COMPLEX Rx Instructions: sliding scale dose subcutaneously tid with meals Mounjaro 15 mg/0.5 mL pen injector 15 mg SUBCUT Q7D Rx Instructions: Unknown doseage. hydroxyzine pamoate 50 mg capsule 50 mg PO BEDTIME nortriptyline 25 mg capsule 75 mg PO BEDTIME benztropine 1 mg tablet 1 mg PO BID aripiprazole 20 mg tablet 20 mg PO DAILY bumetanide 1 mg tablet 1 mg PO BID azelastine 137 mcg (0.1 %) [place],Non-Aerosol 2 spray INTRANASAL BID PRN (Reason: Congestion) Rx Instructions: administer into each nostril albuterol sulfate 90 mcg/actuation HFA aerosol inhaler 90 mcg INHALATION Q4H PRN (Reason: Shortness Of Breath Or Wheezing) famotidine 40 mg tablet 40 mg PO BEDTIME methenamine hippurate 1 gram tablet 1 g PO BID ferrous sulfate [FeroSul] 325 mg (65 mg iron) tablet 325 mg PO EVERY OTHER DAY Rx Instructions: Take with vitamin C mometasone 50 mcg/actuation spray,non-aerosol 50 mcg INTRANASAL DAILY Rx Instructions: Administer 2 sprays in each nostril daily estradiol 0.01 % (0.1 mg/gram) cream 1 g VAGINAL PRN Rx Instructions: See administration instructions diclofenac sodium 1 % gel 2 g TOPICAL QID Rx Instructions: apply to affected area fesoterodine 4 mg Tablet Extended Release 24 Hr 4 mg PO DAILY Emgality Pen 120 mg/mL pen injector 120 mg SUBCUT Q30D prucalopride [Motegrity] 2 mg tablet 2 mg PO DAILY losartan 50 mg tablet 50 mg PO DAILY Qty: 30 0RF insulin glargine [Lantus Solostar U-100 Insulin] 100 unit/mL (3 mL) insulin pen 45 unit SUBCUT BID Qty: 3 0RF Discharge Orders: Discharge Order (Routine); Ordered 11/16/24 Ordered By: Yonatan Reinoso Referrals: Andrea Ren DO [Primary Care Provider] - 11/17/24 1:30 pm Referral Note: Discharge Diet: Cardiac Discharge Activity: Resume usual activity Patient Instructions: Clostridium Difficile, COPD, Hydrocodone/Acetaminophen (By mouth), Vancomycin (By mouth), Cefdinir (By mouth), Heart Failure (GEN), CHF Stoplight, COPD Stoplight, Opioid Safety Activity Restrictions/Additional Instructions: - Please hydrate well - Please take antibiotics as prescribed -For C. difficile colitis please hand wash, to decrease risk of fecal oral transmission -Please use hydrocodone sparingly do not drive or operate machinery or drink while taking medication Discharge Attestations Time Spent in Discharge Care*: greater than 30 min Status at Discharge: Cognitive status at discharge: cognitively intact, Behavioral status at discharge: cooperative, Quality Metrics Clinical Quality Measures [ No reported AMI, CVA or VTE this stay] Coding Level of Care Code 81039 Total time (in minutes) for Discharge: 45 Diagnoses C. difficile colitis A04.72 Uncontrolled type 2 diabetes mellitus Diastolic heart failure I50.30 Pulmonary hypertension I27.20 Chronic post-traumatic stress disorder F43.12 COPD (chronic obstructive pulmonary disease) J44.9 Sleep apnea treated with nocturnal BiPAP G47.30 Hypersomnia G47.10
[2024-11-16] MEDS: cefTRIAXone 1,000 mg SDV 1000 MG IVP (08:33)
[2024-11-16] MEDS: insulin glargine 100 units/1 mL 45 UNIT SUBCUT (08:33)
[2024-11-16] MEDS: insulin lispro 100 unit/1 mL SUBCUT (08:33)
[2024-11-16] MEDS: venlafaxine ER (24HR) 75 mg Capsule 225 MG PO (08:34)
[2024-11-16] MEDS: baclofen 10 mg Tablet 5 MG PO (08:34)
[2024-11-16] MEDS: ARIPiprazole 10 mg Tablet 20 MG PO (08:34)
[2024-11-16] MEDS: gabapentin 400 mg Capsule 800 MG PO (08:35)
[2024-11-16] MEDS: benztropine 1 mg Tablet PO (08:35)
--- NOTE | 2024-11-16 09:46 | PC.CHAP ---
Pastoral Care Encounter/Spiritual Assessment Type of Contact [] Declined biomedical repair technician visit [] Patient/Family/Request visit [] Outpatient visit [] Follow-up visit [] Physician referral [] Code/Alert [x] Routine visit [] Staff referral [] Actively dying [] Patient sleeping [] Family support [] [] Out of room [] Palliative care [] [] Receiving care in room [] Pre-surgical visit [] Trauma [] Long length of stay [] ICU visit [] Other: Relational/Emotional Strength [] Patient feels connected with others/family/visitors/staff [] Distress [] Loneliness/isolation [] Abandonment Spirituality of Patient [] Person of [place] [] Attends Sikhism of their [place] [] Believes in Prayer [] Reads Bible or Samaritan materials [] There are Spiritual issues to be addressed [place] [facility] Techn[facility] Interventions [x] Prayer [] Active listening [] Non-anxious presence [] Spiritual/emotional support [] Crisis/trauma care [] Spiritual counseling [] Bereavement support [] Provided bereavement packet [] Provided Bible/devotional materials [] Provided toy/stuffed animal, coloring book to patient or family member [] Provided Communion [] Anointing/[place] [] Salvation [] Completed spiritual assessment [] Other: Impact on Illness or Injury [] Angry [] Fearful [] Anxious [] Often cries [] Exhaustion [] Unable to work [] Unable to attend [employer] [] Unable to walk/stand [] Unable to read [] Unable to drive [] Unable to eat/drink [] Unable to sleep [] Unable to be with family [] Patient intubated [] Other: Summary precaution Time spent with patient
[2024-11-16 11:41] VITALS: BP 112/75; PULSE 91; RESP 17; TEMP 36.6; O2SAT 96
== END 2024-11-16 11:43 | disposition home or self-care (01) | DRG 872 ==
LOC: ER 18:43 → MEDSURG 18:57
PROVIDERS: Admitting Provider Family Medicine; Emergency Provider Registered Nurse; PCP Family Medicine; Visit Provider Family Medicine
DX: A41.9 Sepsis, unspecified organism (principal); A04.72 Enterocolitis due to Clostridium difficile, not specified as recurrent; I50.32 Chronic diastolic (congestive) heart failure; J96.10 Chronic respiratory failure, unspecified whether with hypoxia or hypercapnia; N39.0 Urinary tract infection, site not specified; I11.0 Hypertensive heart disease with heart failure; E11.9 Type 2 diabetes mellitus without complications; I27.20 Pulmonary hypertension, unspecified; J44.9 Chronic obstructive pulmonary disease, unspecified; G47.30 Sleep apnea, unspecified; F43.12 Post-traumatic stress disorder, chronic; F41.1 Generalized anxiety disorder; E88.810 Metabolic syndrome; G47.10 Hypersomnia, unspecified; M79.662 Pain in left lower leg; M79.661 Pain in right lower leg; Z79.84 Long term (current) use of oral hypoglycemic drugs; Z79.899 Other long term (current) drug therapy; Z79.4 Long term (current) use of insulin; Z88.2 Allergy status to sulfonamides; Z88.8 Allergy status to other drugs, medicaments and biological substances; Z99.89 Dependence on other enabling machines and devices; Z87.891 Personal history of nicotine dependence
CPT/HCPCS: 36415; 36416; 71045; 71275; 74177; 80053; 80061; 81001; 82962; 83036; 83605; 83630; 83690; 83735; 83880; 84100; 84484; 85025; 87040; 87045; 87086; 87324; 87427; 87449; 87493; 93005; 93970; 94660; 94664; 96365; 96372; 99285; J0696; J1650; J1815; J2470; J3490; J7030; J9999

== ENCOUNTER 2024-11-27 16:01 | Inpatient (IN) | payer OTHER, MEDICAID, SELFPAY ==
[2024-11-06 13:58] VITALS: BP 135/72; BMI 48.0
[2024-11-27] VITALS (8 sets, daily range): BP systolic 120–173; BP diastolic 71–95; PULSE 110–122; RESP 17–18; TEMP 36.7–37.3; O2SAT 92–97; BMI 44.0
[2024-11-27 16:53] LABS: Basophils # 0.1 10^3/uL (0.0-0.1); Basophils % 0.6 %; Eosinophils # 0.2 10^3/uL (0.0-0.8); Eosinophils % 1.5 %; Hematocrit 38.9 % (36-47); Lymphocytes % 8.6 %; Mean Corpuscular HGB Conc 29.3 g/dL (30-55); Mean Corpuscular Hemoglobin 24.1 pg (27-33); Mean Corpuscular Volume 82.1 fl (85-98); Mean Platelet Volume 10.3 fL (7.4-10.4); Monocytes # 0.5 10^3/uL (0.2-0.9); Monocytes % 4.7 %; Neutrophils # 9.47 10^3/uL (1.8-7.7); Neutrophils % 84.2 %; Nucleated Red Blood Cells % 0 %; Platelet Count 279 10^3/cmm (157-399); Red Blood Count 4.74 10^6/uL (3.85-5.65); White Blood Count 11.25 10^3/uL (3.29-11.43)
[2024-11-27 17:10] LABS: Alanine Aminotransferase 39 U/L (0-33); Albumin Level 3.8 g/dL (3.5-5.2); Alkaline Phosphatase 174 U/L (35-105); Anion Gap 16.6 (5-19); Aspartate Amino Transferase 49 U/L (0-32); Blood Urea Nitrogen 14 mg/dL (6-20); C Reactive Protein 37.4 mg/L (0.0-4.9); Calcium 9.9 mg/dL (8.5-10.5); Carbon Dioxide 24 mmol/L (22-29); Chloride 104 mmol/L (98-107); Creatinine Clr Calc Pharmacy 96.0141; Globulin 4.1 g/dL (1.3-4.6); Glomerular Filtration Rate 65.2 mL/min (90-130); Glucose 117 mg/dL (65-115); Lipase 21 U/L (13-60); Osmolality Calculated 294 mOsm/kg (285-295); Potassium 3.6 mmol/L (3.5-5.1); Sodium 141 mmol/L (136-145); Total Bilirubin 0.3 mg/dL (0.15-1.2); Total Protein 7.9 g/dL (6.6-8.7)
[2024-11-27 17:11] LABS: Lactic Sepsis W/Reflex 1.6 mmol/L (0.5-2.2)
[2024-11-27 17:27] LABS: Bilirubin Urine Negative (Negative); Blood Urine Negative (Negative); Glucose Urine UA 3+ (Normal); Ketones Urine Trace (Negative); Leukocyte Esterase Urine 1+ (Negative); Nitrate Urine Negative (Negative); Protein Urine 1+ (Negative); Urine Appearance Clear (CLEAR); Urine Color Yellow (Yellow); Urobilinogen Urine 0.2 mg/dL (Negative); pH Urine 5.5 (5-7)
[2024-11-27 17:32] LABS: Bacteria Urine None Seen /hpf; RBC Urine 0-2 /hpf (0-2); Squamous Epithelial Cell Urine 0-5 /hpf (0-5); WBC Urine 51-100 /hpf (0-5)
--- NOTE | 2024-11-27 17:35 | CTR_ITS ---
PROCEDURE INFORMATION: Exam: CT Chest With Contrast; Diagnostic Exam date and time: 11/27/2024 5:51 PM Age: 54 years old Clinical indication: Nausea and vomiting; Abdominal pain; Localized; Other: N/a; Prior surgery; Surgery date: 6+ months; Surgery type: Gb. Hysterectomy. Csection. Lower abd pain with n/v/d. Diagnosed with c diff two weeks ago. ; Additional info: Trauma TECHNIQUE: Imaging protocol: Diagnostic computed tomography of the chest with contrast. Radiation optimization: All CT scans at this facility use at least one of these dose optimization techniques: automated exposure control; mA and/or kV adjustment per patient size (includes targeted exams where dose is matched to clinical indication); or iterative reconstruction. Contrast material: OMNI 350; Contrast volume: 100 ml; Contrast route: INTRAVENOUS (IV); COMPARISON: CT angio chest w abd pel w con 11/14/2024 3:52 PM RADIATION DOSE METRICS: Total DLP (mGy-cm): 1652.68 FINDINGS: Thyroid: There is a 1.9 cm hypodense lesion in the right lobe of the thyroid gland which is indeterminate. Consider nonemergent thyroid ultrasound for further evaluation. Lungs: No focal consolidations. Pleural spaces: Unremarkable. No pneumothorax. No pleural effusion. Heart: Unremarkable. No cardiomegaly. No pericardial effusion. Lymph nodes: Unremarkable. No enlarged lymph nodes. Vasculature: No pulmonary emboli. Bones/joints: Unremarkable. No acute fracture. Soft tissues: Unremarkable. COMMENTS: Consistent with the [employer]'s Incidental Findings Committee white paper (J Am Vaughn Radiol 2015): In patients aged 35 years and older with an incidental thyroid nodule equal to or greater than 1.[address], MRI or extrathyroidal US, further evaluation with dedicated thyroid US is recommended for patients with normal life expectancy and without comorbidities. For smaller nodules without suspicious features, no further evaluation or follow up is recommended. PROCEDURE INFORMATION: Exam: CT Abdomen And Pelvis With Contrast Exam date and time: 11/27/2024 5:51 PM Age: 54 years old Clinical indication: Nausea and vomiting; Abdominal pain; Localized; Other: N/a; Prior surgery; Surgery date: 6+ months; Surgery type: Gb. Hysterectomy. Csection. Lower abd pain with n/v/d. Diagnosed with c diff two weeks ago. ; Additional info: Trauma TECHNIQUE: Imaging protocol: Computed tomography of the abdomen and pelvis with contrast. Radiation optimization: All CT scans at this facility use at least one of these dose optimization techniques: automated exposure control; mA and/or kV adjustment per patient size (includes targeted exams where dose is matched to clinical indication); or iterative reconstruction. Contrast material: OMNI 350; Contrast volume: 100 ml; Contrast route: INTRAVENOUS (IV); COMPARISON: US abdomen limited [id number] 10/30/2024 10:01 AM RADIATION DOSE METRICS: Total DLP (mGy-cm): 1652.68 FINDINGS: Liver: Cirrhotic liver with hypertrophy of the lateral segment of the left lobe and caudate lobe and a slightly nodular contour. No focal lesions identified. Gallbladder and biliary ducts: The gallbladder is absent. Pancreas: Normal. No ductal dilation. Spleen: Multiple punctate calcifications in the spleen consistent with prior granulomatous infection. The spleen is enlarged measuring up to 13.3 cm in length. Adrenal glands: Normal. No mass. Kidneys and ureters: Normal. No hydronephrosis. Stomach and bowel: Unremarkable. No obstruction. No mucosal thickening. Appendix: The appendix is not visualized but there are no secondary signs of acute appendicitis. Intraperitoneal space: Unremarkable. No free air. No significant fluid collection. Vasculature: Unremarkable. No abdominal aortic aneurysm. Lymph nodes: Unremarkable. No enlarged lymph nodes. Urinary bladder: Unremarkable as visualized. Reproductive: Unremarkable as visualized. Bones/joints: Unremarkable. No acute fracture. Soft tissues: Extensive fat stranding in the pannus. No abscess. CT/CT chest abdpel w/*[id number] IMPRESSION: 1. No pulmonary emboli. 2. No focal consolidations. 3. There is a 1.9 cm hypodense lesion in the right lobe of the thyroid gland which is indeterminate. Consider nonemergent thyroid ultrasound for further evaluation. IMPRESSION: 1. Cirrhotic liver. 2. Splenomegaly. 3. No bowel obstruction or inflammatory process associated with the bowel. 4. No free air or significant free fluid in the abdomen or pelvis. 5. The appendix is not visualized but there are no secondary signs of acute appendicitis. 6. Extensive fat stranding in the pannus. No abscess.
[2024-11-27 17:39] LABS: Specific Gravity, Urine 1.033 (1.005-1.030)
[2024-11-27] MEDS: iohexol 350 mg/mL 500 mL Btl (per mL) IV (17:56)
[2024-11-27 18:05] LABS: Add Urine Culture? Yes; UA Slide Review UA Slide Review Perf
--- NOTE | 2024-11-27 18:20 | W.ED.ABDPA2 ---
HPI - Abdominal Pain General: Chief Complaint: Abdominal Pain Stated Complaint: NVD Time Seen by Provider: 11/27/24 16:24 History of Present Illness: 54-year-old female with a history of recently diagnosed C. difficile, obesity, diabetes, diastolic heart failure, COPD, pulmonary hypertension, depression and anxiety who presents to the emergency room with abdominal pain and continued diarrhea. She says she completed her antibiotics a couple days ago. She got home on oral vancomycin. Has lower abdominal pain, and diarrhea. No fevers. Related Data Home Medications ?Medication ?Instructions ?Recorded ?Confirmed acetaminophen 500 mg tablet 500 mg PO QID PRN Pain 12/12/19 11/14/24 atorvastatin 40 mg PO BEDTIME 12/12/19 11/14/24 baclofen 5 mg PO BID 12/12/19 11/14/24 cetirizine 10 mg tablet 10 mg PO DAILY 12/12/19 11/14/24 docusate sodium 100 mg PO BID 12/12/19 11/14/24 epinephrine 0.3 mg IM PRN PRN anaphylaxis 12/12/19 11/14/24 gabapentin 600 mg tablet 800 mg PO TID 12/12/19 11/14/24 glimepiride 4 mg PO BID 12/12/19 11/14/24 metformin 1,000 mg PO BID 12/12/19 11/14/24 empagliflozin 25 mg tablet 25 mg PO QAM 09/18/21 11/14/24 (Jardiance) linaclotide 290 mcg capsule 290 mcg PO QAM 09/18/21 11/14/24 (Linzess) montelukast 10 mg tablet 10 mg PO DAILY 09/18/21 11/14/24 (Singulair) pantoprazole 40 mg tablet,delayed 40 mg PO BID 09/18/21 11/14/24 release (Protonix) ropinirole 1 mg tablet 2 mg PO BEDTIME 09/18/21 11/14/24 aripiprazole 20 mg tablet 20 mg PO DAILY 10/30/24 11/14/24 benztropine 1 mg tablet 1 mg PO BID 10/30/24 11/14/24 cholecalciferol (vitamin D3) 10 See Rx Instructions .Route .COMPLEX 10/30/24 11/14/24 mcg (400 unit) tablet hydroxyzine pamoate 50 mg capsule 50 mg PO BEDTIME 10/30/24 11/14/24 insulin lispro 100 unit/mL See Rx Instructions .Route .COMPLEX 10/30/24 11/14/24 subcutaneous pen (Humalog KwikPen (U-100) Insulin) nortriptyline 25 mg capsule 75 mg PO BEDTIME 10/30/24 11/14/24 tirzepatide 15 mg/0.5 mL 15 mg SUBCUT Q7D 10/30/24 11/14/24 subcutaneous pen injector (Mounjaro) venlafaxine 75 mg capsule,extended 75 mg PO DAILY 10/30/24 11/14/24 release 24 hr albuterol sulfate 90 mcg/actuation 90 mcg inhalation Q4H PRN 10/31/24 11/14/24 aerosol inhaler Shortness Of Breath Or Wheezing azelastine 137 mcg (0.1 %) nasal 2 spray intranasal BID PRN 10/31/24 11/14/24 spray Congestion bumetanide 1 mg tablet 1 mg PO BID 10/31/24 11/14/24 diclofenac sodium 1 % topical gel 2 g topical QID 10/31/24 11/14/24 estradiol 0.01% (0.1 mg/gram) 1 g vaginal PRN 10/31/24 11/14/24 vaginal cream famotidine 40 mg tablet 40 mg PO BEDTIME 10/31/24 11/14/24 ferrous sulfate 325 mg (65 mg 325 mg PO EVERY OTHER DAY 10/31/24 11/14/24 iron) tablet (FeroSul) fesoterodine 4 mg tablet,extended 4 mg PO DAILY 10/31/24 11/14/24 release 24 hr galcanezumab-gnlm 120 mg/mL 120 mg SUBCUT Q30D 10/31/24 11/14/24 subcutaneous pen injector (Emgality Pen) methenamine hippurate 1 gram tablet 1 g PO BID 10/31/24 11/14/24 mometasone 50 mcg/actuation nasal 50 mcg intranasal DAILY 10/31/24 11/14/24 spray prucalopride 2 mg tablet 2 mg PO DAILY 10/31/24 11/14/24 (Motegrity) Previous Rx's ?Medication ?Instructions ?Recorded meclizine 25 mg tablet (Dramamine 25 mg PO TID PRN motion sickness 10/13/23 (meclizine)) #20 tabs ondansetron 4 mg disintegrating 4 mg PO Q6H PRN nausea and 04/12/24 tablet vomiting #12 tabs insulin glargine 100 unit/mL (3 45 unit (0.45 mL) SUBCUT BID #3 mL 11/02/24 mL) subcutaneous pen (Lantus Solostar U-100 Insulin) losartan 50 mg tablet 50 mg PO DAILY #30 tabs 11/02/24 venlafaxine 150 mg 150 mg PO QAM 30 days #30 caps 11/11/24 capsule,extended release 24 hr (Effexor XR) Allergies Allergy/AdvReac Type Severity Reaction Status Date / Time methocarbamol Allergy Intermediate itching Verified 11/27/24 16:11 Sulfa (Sulfonamide Allergy Unknown Unknown Verified 11/27/24 16:11 Antibiotics) tramadol Allergy ADR-Headach Verified 11/27/24 16:11 e Review of Systems Narrative: Constitutional symptoms: Negative except as documented in HPI. Skin symptoms: Negative except as documented in HPI. Eye symptoms: Negative except as documented in HPI. ENMT symptoms: Negative except as documented in HPI. Respiratory symptoms: Negative except as documented in HPI. Cardiovascular symptoms: Negative except as documented in HPI. Gastrointestinal symptoms: Negative except as documented in HPI. Genitourinary symptoms: Negative except as documented in HPI. Musculoskeletal symptoms: Negative except as documented in HPI. Neurologic symptoms: Negative except as documented in HPI. Psychiatric symptoms: Negative except as documented in HPI. Endocrine symptoms: Negative except as documented in HPI. PFSH ED PFSH: Medical History Uncontrolled type 2 diabetes mellitus Diastolic heart failure Pulmonary hypertension COPD (chronic obstructive pulmonary disease) Diabetes Psychiatric care Medication management Sleep apnea treated with nocturnal BiPAP Hypersomnia Major depressive disorder, recurrent, severe with psychotic symptoms Chronic post-traumatic stress disorder Generalized anxiety disorder Surgical History History of back surgery due to a herniated disk. Hx laparoscopic cholecystectomy History of hysterectomy with bilateral oophorectomy due to menorrhagia H/O shoulder surgery due to Frozen shoulder Family History Father Lung cancer Sister Multiple myeloma Mother Heart disease Social History Smoking and tobacco/nicotine status: former use of tobacco/nicotine Quit status (tobacco/nicotine): has quit using Former quit date comment: She smoked 1/2 PPD for about 6 months Alcohol intake: never Substance/Drug Use: never Current gender identity: Female Female Reproductive History: Spontaneous abortions: No Physical Exam Narrative: EXAM NARRATIVE: General: Alert, no acute distress. Skin: Warm, dry. Head: Normocephalic, atraumatic. Neck: Supple, trachea midline. Eye: Extraocular movements are intact. Ears, nose, mouth and throat: Tacky oral mucosa Cardiovascular: Regular, tachycardic, normal peripheral perfusion. Respiratory: Lungs are clear to auscultation, respirations are non-labored, breath sounds are equal, Symmetrical chest wall expansion. Gastrointestinal: Soft, Nontender, Non distended Musculoskeletal: Normal ROM, no deformity. Neurological: Alert and oriented, No focal neurological deficit observed. Psychiatric: Cooperative, appropriate mood & affect. Course Vital Signs: Vital signs: Vital Signs Temperature 98.1 F 11/27/24 16:08 Pulse Rate 114 H 11/27/24 18:37 Respiratory Rate 18 11/27/24 16:08 Blood Pressure 137/79 11/27/24 16:55 Pulse Oximetry 93 11/27/24 18:37 Oxygen Delivery Me thod Room Air 11/27/24 18:37 MDM - Abdominal Pain Medical Decision Making Medical decision making: Differential diagnosis including but not limited to and based on the above HPI, review of systems and physical exam: In this patient with diarrhea and abdominal pain would have concern for viral gastroenteritis, C. difficile, also have concern for renal failure. Urinary tract infections. Orders placed to evaluate differential diagnosis based on the above differential, HPI and physical exam Lab Review: Laboratory results were reviewed and interpreted by myself the emergency room physician. Mild leukocytosis. No anemia. No renal failure. Urinary tract infection present. 50-100 whites but no bacteria. 1+ leukocyte Estrace. C. difficile is positive. CT of the chest abdomen pelvis: Chest is clear other than a thyroid nodule. Abdomen shows cirrhotic liver but no obvious bowel obstruction or inflammatory process in the bowels. I reviewed the patient's medical record. Reexamination: Patient has remained slightly tachycardic but is improving some with fluids. I discussed findings. No increased work of breathing. No altered mental status. Consultation: I spoke with Dr. Marr who is on-call for the hospitalist service who agrees to admission. Assessment and plan: Recurrent C. difficile colitis Urinary tract infection Dehydration ?2 L normal saline bolus. IV cefepime for UTI. Oral vancomycin for C. difficile. -I discussed the patient with the hospitalist on-call who is admitting the patient. - Discussed findings and plan with patient. Answered any questions. - All laboratory values were reviewed and interpreted personally by myself, the ER physician - All imaging was reviewed and interpreted personally by myself, the ER physician. - Evaluation and treatment of this problem were appropriate in the emergency setting Lab Data 11/27/24 16:44 11/27/24 16:44 Labs/Radiology: Radiology Impressions Chest/Abdomen/Pelvis CT 11/27/24 17:35 IMPRESSION: 1. No pulmonary emboli. 2. No focal consolidations. 3. There is a 1.9 cm hypodense lesion in the right lobe of the thyroid gland which is indeterminate. Consider nonemergent thyroid ultrasound for further evaluation. IMPRESSION: 1. Cirrhotic liver. 2. Splenomegaly. 3. No bowel obstruction or inflammatory process associated with the bowel. 4. No free air or significant free fluid in the abdomen or pelvis. 5. The appendix is not visualized but there are no secondary signs of acute appendicitis. 6. Extensive fat stranding in the pannus. No abscess. Laboratory Results WBC 11.25 10^3/uL (3.29-11.43) 11/27/24 16:44 RBC 4.74 10^6/uL (3.85-5.65) 11/27/24 16:44 Hgb 11.40 g/dL (11.27-16.99) 11/27/24 16:44 Hct 38.9 % (36-47) 11/27/24 16:44 MCV 82.1 fl (85-98) L 11/27/24 16:44 MCH 24.1 pg (27-33) L 11/27/24 16:44 MCHC 29.3 g/dL (30-55) L 11/27/24 16:44 RDW 19.0 % (12.1-15.1) H 11/27/24 16:44 Plt Count 279 10^3/cmm (157-399) 11/27/24 16:44 MPV 10.3 fL (7.4-10.4) 11/27/24 16:44 Neut % (Auto) 84.2 % 11/27/24 16:44 Lymph % (Auto) 8.6 % 11/27/24 16:44 [place] % (Auto) 4.7 % 11/27/24 16:44 Eos % (Auto) 1.5 % 11/27/24 16:44 Baso % (Auto) 0.6 % 11/27/24 16:44 Neut # (Auto) 9.47 10^3/uL (1.8-7.7) H 11/27/24 16:44 Lymph # (Auto) 1.0 10^3/uL (0.8-4.8) 11/27/24 16:44 [place] # (Auto) 0.5 10^3/uL (0.2-0.9) 11/27/24 16:44 Eos # (Auto) 0.2 10^3/uL (0.0-0.8) 11/27/24 16:44 Baso # (Auto) 0.1 10^3/uL (0.0-0.1) 11/27/24 16:44 Nucleated RBC % (auto) 0 % 11/27/24 16:44 Nucleated RBCs # 0.0 /100WBC 11/27/24 16:44 Sodium 141 mmol/L (136-145) 11/27/24 16:44 Potassium 3.6 mmol/L (3.5-5.1) 11/27/24 16:44 Chloride 104 mmol/L (98-107) 11/27/24 16:44 Carbon Dioxide 24 mmol/L (22-29) 11/27/24 16:44 Anion Gap 16.6 (5-19) 11/27/24 16:44 BUN 14 mg/dL (6-20) 11/27/24 16:44 Creatinine 0.9 mg/dL (0.5-0.9) 11/27/24 16:44 GFR Calculation 65.2 mL/min (90-130) L 11/27/24 16:44 Glucose 117 mg/dL (65-115) H 11/27/24 16:44 Calculated Osmolality 294 mOsm/kg (285-295) 11/27/24 16:44 Lactic Acid 1.6 mmol/L (0.5-2.2) 11/27/24 16:44 Calcium 9.9 mg/dL (8.5-10.5) 11/27/24 16:44 Total Bilirubin 0.3 mg/dL (0.15-1.2) 11/27/24 16:44 AST 49 U/L (0-32) H 11/27/24 16:44 ALT 39 U/L (0-33) H 11/27/24 16:44 Alkaline Phosphatase 174 U/L (35-105) H 11/27/24 16:44 C-Reactive Protein 37.4 mg/L (0.0-4.9) H 11/27/24 16:44 Total Protein 7.9 g/dL (6.6-8.7) 11/27/24 16:44 Albumin 3.8 g/dL (3.5-5.2) 11/27/24 16:44 Globulin 4.1 g/dL (1.3-4.6) 11/27/24 16:44 Lipase 21 U/L (13-60) 11/27/24 16:44 Urine Color Yellow (Yellow) 11/27/24 17:09 Urine Appearance Clear (CLEAR) 11/27/24 17:09 Urine pH 5.5 (5-7) 11/27/24 17:09 Ur Specific Bromide 1.033 (1.005-1.030) H 11/27/24 17:09 Urine Protein 1+ (Negative) A 11/27/24 17:09 Urine Glucose (UA) 3+ (Normal) H 11/27/24 17:09 Urine Ketones Trace (Negative) 11/27/24 17:09 Urine Blood Negative (Negative) 11/27/24 17:09 Urine Nitrate Negative (Negative) 11/27/24 17:09 Urine Bilirubin Negative (Negative) 11/27/24 17:09 Urine Urobilinogen 0.2 mg/dL (Negative) 11/27/24 17:09 Ur Leukocyte Esterase 1+ (Negative) A 11/27/24 17:09 Urine RBC 0-2 /hpf (0-2) 11/27/24 17:09 Urine WBC 51-100 /hpf (0-5) H 11/27/24 17:09 Ur Squamous Epith Cells 0-5 /hpf (0-5) 11/27/24 17:09 Amorphous Sediment Not Reportable 11/27/24 17:09 Urine Bacteria None seen /hpf (NONE) 11/27/24 17:09 Hyaline Casts 3.30 /lpf 11/27/24 17:09 Urine Yeast 1+ /hpf H 11/27/24 17:09 C. difficile (PCR) Positive (Negative) H 11/27/24 16:15 All radiology interpretation(s) finalized by discharge Discharge Plan Discharge Patient Disposition: Admitted As Inpatient Clinical Impression: Clostridium difficile colitis, Urinary tract infection, Dehydration, Abdominal pain Condition: Stable Coding Level of Care Code ED Cyanide Pot Hardener for Margie Pichardo
[2024-11-27] MEDS: sodium chloride 0.9% 1,000 ML 999 ML IV ×2 (18:34)
[2024-11-27 18:51] LABS: C.Diff PCR (Lab) POSITIVE (Negative)
[2024-11-27] MEDS: ondansetron 2 mg/ML SDV 2 mL 4 MG IVP (19:17)
[2024-11-27] MEDS: vancomycin 125 mg Capsule PO ×2 (19:17→21:34)
[2024-11-27] MEDS: morphine 4 mg/mL SDV 1 mL IVP (19:18)
[2024-11-27] MEDS: cefepime 2,000 mg SDV 2000 MG IVP (19:19)
--- NOTE | 2024-11-27 19:27 | PC.NURSE ---
pt o2 sat dropped to 85% after morphine iv, put on 2l nc. o2 sat up to 95%, pt states after her 2 previous hospital stays pt was dc with o2 at 2l nc.
--- NOTE | 2024-11-27 19:37 | PC.NURSE ---
pt report called to [facility] on med surg. 1935.
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
[2024-11-27 20:41] LABS: Clostridioides Difficile Toxin POSITIVE (Negative)
[2024-11-27] MEDS: enoxaparin 40 mg/0.4 mL Syringe SUBCUT (21:31)
[2024-11-27] MEDS: gabapentin 400 mg Capsule 800 MG PO (21:32)
[2024-11-27] MEDS: nortriptyline 25 mg Capsule 75 MG PO (21:32)
[2024-11-27] MEDS: famotidine 20 mg Tablet 40 MG PO (21:32)
[2024-11-27] MEDS: hyDROXYzine 25 mg Capsule 50 MG PO (21:32)
[2024-11-27] MEDS: ropinirole 1 mg Tablet 2 MG PO (21:32)
[2024-11-27] MEDS: atorvastatin 40 mg Tablet PO (21:33)
[2024-11-27] MEDS: metroNIDAZOLE 500 MG Tablet PO (21:33)
[2024-11-27] MEDS: sodium chlor 0.9% + KCl 20 mEq 20 MEQ/1,000 ML BAG 100 MEQ IV (21:34)
[2024-11-27 21:40] LABS: Glucose Point of Care 123 mg/dL (70-110)
[2024-11-28] VITALS (13 sets, daily range): BP systolic 95–135; BP diastolic 59–75; PULSE 84–98; RESP 14–18; TEMP 36.6–37.4; O2SAT 88–95; BMI 44.6
[2024-11-28] MEDS: vancomycin 125 mg Capsule PO ×4 (03:34→20:22)
[2024-11-28 04:45] LABS: Anion Gap 13.7 (5-19); Basophils % 0.5 %; Blood Urea Nitrogen 12 mg/dL (6-20); Calcium 9.2 mg/dL (8.5-10.5); Carbon Dioxide 24 mmol/L (22-29); Chloride 105 mmol/L (98-107); Creatinine Clr Calc Pharmacy 96.4875; Eosinophils # 0.3 10^3/uL (0.0-0.8); Glomerular Filtration Rate 65.2 mL/min (90-130); Glucose 71 mg/dL (65-115); Hematocrit 35.2 % (36-47); Lymphocytes # 1.5 10^3/uL (0.8-4.8); Lymphocytes % 17.4 %; Magnesium 1.5 mg/dL (1.7-2.3); Mean Corpuscular Hemoglobin 24.1 pg (27-33); Mean Corpuscular Volume 83.2 fl (85-98); Mean Platelet Volume 10.9 fL (7.4-10.4); Monocytes # 0.5 10^3/uL (0.2-0.9); Monocytes % 6.2 %; Neutrophils % 72.4 %; Nucleated Red Blood Cells % 0 %; Osmolality Calculated 286 mOsm/kg (285-295); Phosphorus 3.7 mg/dL (2.5-4.5); Platelet Count 255 10^3/cmm (157-399); Potassium 3.7 mmol/L (3.5-5.1); Red Blood Count 4.23 10^6/uL (3.85-5.65); Red Cell Distribution Width 19.2 % (12.1-15.1); Sodium 139 mmol/L (136-145); White Blood Count 8.56 10^3/uL (3.29-11.43)
[2024-11-28] MEDS: venlafaxine ER (24HR) 150 mg Capsule PO (05:19)
[2024-11-28] MEDS: sodium chlor 0.9% + KCl 20 mEq 20 MEQ/1,000 ML BAG 100 MEQ IV ×2 (06:06→17:44)
[2024-11-28 06:29] LABS: Glucose Point of Care 88 mg/dL (70-110)
[2024-11-28] MEDS: ARIPiprazole 10 mg Tablet 20 MG PO (08:08)
[2024-11-28] MEDS: cholecalciferol (vitamin D3) 1,000 unit Tablet 1000 UNIT PO (08:08)
[2024-11-28] MEDS: acetaminophen 325 mg Tablet 650 MG PO (08:08)
[2024-11-28] MEDS: venlafaxine ER (24HR) 75 mg Capsule PO (08:08)
[2024-11-28] MEDS: gabapentin 400 mg Capsule 800 MG PO ×3 (08:09→20:22)
[2024-11-28] MEDS: metroNIDAZOLE 500 MG Tablet PO ×2 (08:09→14:22)
[2024-11-28] MEDS: baclofen 10 mg Tablet 5 MG PO ×2 (08:09→17:11)
[2024-11-28] MEDS: losartan 50 mg Tablet PO (08:10)
[2024-11-28] MEDS: cetirizine 10 mg Tablet PO (08:10)
[2024-11-28] MEDS: benztropine 1 mg Tablet PO ×2 (08:10→17:11)
[2024-11-28] MEDS: montelukast sodium 10 mg Tablet PO (08:11)
[2024-11-28] MEDS: insulin glargine 100 units/1 mL 30 UNIT SUBCUT ×2 (08:53→17:10)
[2024-11-28] MEDS: diclofenac 1% Topical Gel 100 gm 1 APPLIC TOPICAL ×4 (08:54→20:23)
[2024-11-28] MEDS: oxyCODONE 5 mg IR Tab/Cap PO ×2 (09:16→17:41)
--- NOTE | 2024-11-28 11:36 | PC.CHAP ---
Pastoral Care Encounter/Spiritual Assessment Type of Contact [] Declined wood floor layer visit [] Patient/Family/Request visit [] Outpatient visit [] Follow-up visit [] Physician referral [] Code/Alert [x] Routine visit [] Staff referral [] Actively dying [] Patient sleeping [] Family support [] [] Out of room [] Palliative care [] [] Receiving care in room [] Pre-surgical visit [] Trauma [] Long length of stay [] ICU visit [x] Other: Stop Relational/Emotional Strength [] Patient feels connected with others/family/visitors/staff [] Distress [] Loneliness/isolation [] Abandonment Spirituality of Patient [] Person of Laura [] Attends Jew of their Laura [] Believes in Prayer [] Reads Bible or Latter Day materials [] There are Spiritual issues to be addressed Manager Acquisition Interventions [] Prayer [] Active listening [] Non-anxious presence [] Spiritual/emotional support [] Crisis/trauma care [] Spiritual counseling [] Bereavement support [] Provided bereavement packet [] Provided Bible/devotional materials [] Provided toy/stuffed animal, coloring book to patient or family member [] Provided Communion [] Anointing/Renovo [] Salvation [] Completed spiritual assessment [] Other: Impact on Illness or Injury [] Angry [] Fearful [] Anxious [] Often cries [] Exhaustion [] Unable to work [] Unable to attend catholic [] Unable to walk/stand [] Unable to read [] Unable to drive [] Unable to eat/drink [] Unable to sleep [] Unable to be with family [] Patient intubated [] Other: Summary Time spent with patient
[2024-11-28 11:47] LABS: Glucose Point of Care 107 mg/dL (70-110)
--- NOTE | 2024-11-28 16:01 | PM.PN ---
Subjective Subjective: Seen this morning. No acute events overnight. Patient continues to have diarrhea. Magnesium 1.5 this morning CRP 37.4, WBCs 51 200 and urine. Positive for C. difficile. Vitals/I&O/Wt Last Vital Signs Temp 98.0 F 11/28/24 15:34 Pulse 84 11/28/24 15:34 Resp 17 11/28/24 15:34 BP 116/71 11/28/24 15:34 Pulse Ox 91 11/28/24 15:34 O2 Del Method Nasal Cannula 11/28/24 15:34 O2 Flow Rate 2 11/28/24 09:28 FiO2 32 11/28/24 03:13 11/28/24 11/28/24 11/28/24 06:59 14:59 22:59 Intake Total 853.333 / 3093.333 480 / 480 Balance 853.333 / 3093.333 480 / 480 Weight last 48 hrs Weight 125.464 kg Weight 125.464 kg Weight 124.88 kg Weight 123.831 kg Physical Exam Narrative: General well-developed morbidly obese female in no acute cardiopulmonary distress CV regular rate and rhythm Lungs clear to auscultation bilaterally Abdomen positive bowel sounds soft obese she has a ventral hernia nontender. Bowel tones are diminished Calves 1+ bilateral edema no asymmetry Mentation alert and orient x 3 Data 11/28/24 03:13 11/28/24 03:13 Micro: Microbiology 11/27/24 16:46 Blood Culture - Preliminary Blood SPECIMEN COLLECTED 11/27/24 16:44 Blood Culture - Preliminary Blood SPECIMEN COLLECTED A&P Assessment and plan (1) Clostridium difficile colitis: Patient is admitted for oral vancomycin and metronidazole. Will hydrate with fluid. Decrease current insulin dose and decrease her diet while colitis improves. CT scan was reassuring without worrisome findings of colitis (2) Uncontrolled type 2 diabetes mellitus: At home Lantus dose 45 units twice a day but her A1c is 9.1. Will decrease dose expectantly to 30 units twice a day and continue sliding scale on a 1600-calorie ADA diet. This is in part due to colitis but also for weight loss. Patient is on highest dose tirzepatide and will need to make some diet changes as well (3) Urinary tract infection: Treated with Rocephin 1 g daily picking up tomorrow evening from dose given in the ED MD of cefepime by Dr. Wells Plan 11/28/2024 Continue management per H&P I will switch oral metronidazole to IV. PDMP PDMP Reviewed: Not Reviewed Attestations Medical Necessity Statement*: C. difficile diarrhea. UTI Coding Level of Care Code Acute Code for [facility] Diagnoses Clostridium difficile colitis A04.72 Uncontrolled type 2 diabetes mellitus Urinary tract infection N39.0
[2024-11-28 16:37] LABS: Glucose Point of Care 157 mg/dL (70-110)
[2024-11-28] MEDS: metroNIDAZOLE IV 500 MG/100 ML PREMIX 100 MG IV (17:10)
[2024-11-28] MEDS: insulin lispro 100 unit/1 mL SUBCUT (17:11)
[2024-11-28] MEDS: cefTRIAXone 1,000 mg SDV 1000 MG IVP (17:45)
[2024-11-28] MEDS: nortriptyline 25 mg Capsule 75 MG PO (20:22)
[2024-11-28] MEDS: ropinirole 1 mg Tablet 2 MG PO (20:22)
[2024-11-28] MEDS: famotidine 20 mg Tablet 40 MG PO (20:23)
[2024-11-28] MEDS: hyDROXYzine 25 mg Capsule 50 MG PO (20:23)
[2024-11-28] MEDS: enoxaparin 40 mg/0.4 mL Syringe SUBCUT (20:23)
[2024-11-28] MEDS: atorvastatin 40 mg Tablet PO (20:23)
[2024-11-28 20:49] LABS: Glucose Point of Care 160 mg/dL (70-110)
[2024-11-29] VITALS (11 sets, daily range): BP systolic 118–161; BP diastolic 57–97; PULSE 88–109; RESP 14–18; TEMP 36.6–37.4; O2SAT 90–97
[2024-11-29] MEDS: metroNIDAZOLE IV 500 MG/100 ML PREMIX 100 MG IV ×4 (00:23→23:30)
[2024-11-29] MEDS: sodium chlor 0.9% + KCl 20 mEq 20 MEQ/1,000 ML BAG 100 MEQ IV ×3 (01:38→22:08)
[2024-11-29 03:29] LABS: Basophils % 0.6 %; Eosinophils # 0.3 10^3/uL (0.0-0.8); Eosinophils % 3.7 %; Hematocrit 33.6 % (36-47); Lymphocytes # 0.6 10^3/uL (0.8-4.8); Lymphocytes % 8.9 %; Mean Corpuscular HGB Conc 28.9 g/dL (30-55); Mean Corpuscular Hemoglobin 24.4 pg (27-33); Mean Corpuscular Volume 84.6 fl (85-98); Mean Platelet Volume 10.7 fL (7.4-10.4); Monocytes # 0.5 10^3/uL (0.2-0.9); Monocytes % 7.2 %; Neutrophils # 5.59 10^3/uL (1.8-7.7); Nucleated Red Blood Cells % 0 %; Platelet Count 246 10^3/cmm (157-399); Red Blood Count 3.97 10^6/uL (3.85-5.65); Red Cell Distribution Width 19.1 % (12.1-15.1); White Blood Count 7.07 10^3/uL (3.29-11.43)
[2024-11-29] MEDS: vancomycin 125 mg Capsule PO ×4 (03:44→20:34)
[2024-11-29 03:56] LABS: Alanine Aminotransferase 26 U/L (0-33); Albumin Level 3.2 g/dL (3.5-5.2); Alkaline Phosphatase 152 U/L (35-105); Anion Gap 13.1 (5-19); Aspartate Amino Transferase 29 U/L (0-32); Blood Urea Nitrogen 8 mg/dL (6-20); Calcium 8.7 mg/dL (8.5-10.5); Carbon Dioxide 24 mmol/L (22-29); Chloride 103 mmol/L (98-107); Globulin 3.5 g/dL (1.3-4.6); Glomerular Filtration Rate 65.2 mL/min (90-130); Glucose 161 mg/dL (65-115); Osmolality Calculated 284 mOsm/kg (285-295); Potassium 4.1 mmol/L (3.5-5.1); Sodium 136 mmol/L (136-145); Total Bilirubin 0.2 mg/dL (0.15-1.2); Total Protein 6.7 g/dL (6.6-8.7)
[2024-11-29] MEDS: venlafaxine ER (24HR) 150 mg Capsule PO (05:15)
[2024-11-29] MEDS: acetaminophen 325 mg Tablet 650 MG PO ×2 (05:16→15:41)
[2024-11-29 06:33] LABS: Glucose Point of Care 228 mg/dL (70-110)
[2024-11-29] MEDS: venlafaxine ER (24HR) 75 mg Capsule PO (08:36)
[2024-11-29] MEDS: oxyCODONE 5 mg IR Tab/Cap PO ×2 (08:37→16:44)
[2024-11-29] MEDS: montelukast sodium 10 mg Tablet PO (08:37)
[2024-11-29] MEDS: baclofen 10 mg Tablet 5 MG PO ×2 (08:37→16:40)
[2024-11-29] MEDS: cholecalciferol (vitamin D3) 1,000 unit Tablet 1000 UNIT PO (08:37)
[2024-11-29] MEDS: losartan 50 mg Tablet PO (08:37)
[2024-11-29] MEDS: cetirizine 10 mg Tablet PO (08:37)
[2024-11-29] MEDS: gabapentin 400 mg Capsule 800 MG PO ×3 (08:38→20:23)
[2024-11-29] MEDS: insulin glargine 100 units/1 mL 30 UNIT SUBCUT ×2 (08:38→16:41)
[2024-11-29] MEDS: ARIPiprazole 10 mg Tablet 20 MG PO (08:38)
[2024-11-29] MEDS: benztropine 1 mg Tablet PO ×2 (08:38→16:41)
[2024-11-29] MEDS: ferrous sulfate EC 325 mg Tablet PO (08:38)
[2024-11-29] MEDS: diclofenac 1% Topical Gel 100 gm 1 APPLIC TOPICAL ×4 (08:39→20:24)
[2024-11-29] MEDS: insulin lispro 100 unit/1 mL SUBCUT ×4 (08:39→20:23)
[2024-11-29 10:53] LABS: Glucose Point of Care 207 mg/dL (70-110)
--- NOTE | 2024-11-29 13:30 | P.PN_ITS ---
Subjective 2 Subjective: seen today diarrhea slowing down, had 1 episode Vitals/I&O/Wt Last Vital Signs Temp 97.8 F 11/29/24 12:44 Pulse 109 H 11/29/24 12:44 Resp 18 11/29/24 12:44 BP 161/83 11/29/24 12:44 Pulse Ox 90 11/29/24 12:44 O2 Del Method Nasal Cannula 11/29/24 12:44 O2 Flow Rate 2 11/29/24 08:43 FiO2 32 11/29/24 03:15 11/28/24 11/29/24 11/29/24 22:59 06:59 14:59 Intake Total 1542019 890 / 2910 1650 / 1650 Balance 1542019 890 / 2910 1650 / 1650 Weight last 48 hrs Weight 128.457 kg Weight 125.464 kg Weight 125.464 kg Weight 124.88 kg Weight 123.831 kg Physical Exam 2 Narrative: General well-developed morbidly obese female in no acute cardiopulmonary distress CV regular rate and rhythm Lungs clear to auscultation bilaterally Abdomen positive bowel sounds soft obese she has a ventral hernia nontender. Bowel tones are diminished Calves 1+ bilateral edema no asymmetry Mentation alert and orient x 3 Data 11/29/24 03:19 11/29/24 03:19 Micro: Microbiology 11/27/24 17:09 Urine Culture - Final Urine,Clean Catch 11/27/24 16:46 Blood Culture - Preliminary Blood NEGATIVE TO DATE 11/27/24 16:44 Blood Culture - Preliminary Blood NEGATIVE TO DATE A&P Assessment and plan (1) Clostridium difficile colitis: Patient is admitted for oral vancomycin and metronidazole. Will hydrate with fluid. Decrease current insulin dose and decrease her diet while colitis improves. CT scan was reassuring without worrisome findings of colitis (2) Uncontrolled type 2 diabetes mellitus: At home Lantus dose 45 units twice a day but her A1c is 9.1. Will decrease dose expectantly to 30 units twice a day and continue sliding scale on a 1600-calorie ADA diet. This is in part due to colitis but also for weight loss. Patient is on highest dose tirzepatide and will need to make some diet changes as well (3) Urinary tract infection: Treated with Rocephin 1 g daily picking up tomorrow evening from dose given in the ED MD of cefepime by Dr. Wells Plan 11/28/2024 Continue management per H&P I will switch oral metronidazole to IV. 11/29/2024 seen today continue IV metronidazole continue oral vanc will need prolonged vanc taper at co feeling better ceftriaxone 1000 mg for UTI urine culture pending. PDMP PDMP Reviewed: Not Reviewed Attestations 2 Medical Necessity Statement*: C. difficile diarrhea. UTI Diagnoses Clostridium difficile colitis A04.72 Uncontrolled type 2 diabetes mellitus Urinary tract infection N39.0
[2024-11-29 16:18] LABS: Glucose Point of Care 198 mg/dL (70-110)
[2024-11-29] MEDS: bumetanide 0.25 mg/mL SDV 4 mL 1 MG IVP (16:38)
[2024-11-29] MEDS: cefTRIAXone 1,000 mg SDV 1000 MG IVP (16:40)
[2024-11-29 20:20] LABS: Glucose Point of Care 225 mg/dL (70-110)
[2024-11-29] MEDS: ropinirole 1 mg Tablet 2 MG PO (20:23)
[2024-11-29] MEDS: enoxaparin 40 mg/0.4 mL Syringe SUBCUT (20:23)
[2024-11-29] MEDS: hyDROXYzine 25 mg Capsule 50 MG PO (20:23)
[2024-11-29] MEDS: atorvastatin 40 mg Tablet PO (20:23)
[2024-11-29] MEDS: nortriptyline 25 mg Capsule 75 MG PO (20:23)
[2024-11-29] MEDS: famotidine 20 mg Tablet 40 MG PO (20:23)
[2024-11-30] VITALS (12 sets, daily range): BP systolic 114–144; BP diastolic 62–77; PULSE 90–106; RESP 16–20; TEMP 36.7–37.4; O2SAT 89–95
[2024-11-30] MEDS: oxyCODONE 5 mg IR Tab/Cap PO ×3 (02:59→18:43)
[2024-11-30] MEDS: vancomycin 125 mg Capsule PO ×4 (03:00→20:54)
[2024-11-30 03:12] LABS: Basophils # 0.1 10^3/uL (0.0-0.1); Basophils % 0.7 %; Eosinophils # 0.3 10^3/uL (0.0-0.8); Eosinophils % 3.6 %; Hematocrit 33.5 % (36-47); Lymphocytes # 0.8 10^3/uL (0.8-4.8); Lymphocytes % 11.1 %; Mean Corpuscular HGB Conc 29.6 g/dL (30-55); Mean Corpuscular Volume 81.3 fl (85-98); Mean Platelet Volume 10.4 fL (7.4-10.4); Monocytes # 0.4 10^3/uL (0.2-0.9); Monocytes % 6.2 %; Neutrophils # 5.37 10^3/uL (1.8-7.7); Neutrophils % 77.8 %; Nucleated Red Blood Cells % 0 %; Platelet Count 267 10^3/cmm (157-399); Red Blood Count 4.12 10^6/uL (3.85-5.65); White Blood Count 6.91 10^3/uL (3.29-11.43)
[2024-11-30 03:29] LABS: Albumin Level 3.2 g/dL (3.5-5.2); Alkaline Phosphatase 147 U/L (35-105); Blood Urea Nitrogen 5 mg/dL (6-20); Calcium 8.8 mg/dL (8.5-10.5); Carbon Dioxide 24 mmol/L (22-29); Chloride 103 mmol/L (98-107); Creatinine Clr Calc Pharmacy 110.3642; Globulin 3.7 g/dL (1.3-4.6); Glomerular Filtration Rate 74.7 mL/min (90-130); Glucose 158 mg/dL (65-115); Magnesium 1.6 mg/dL (1.7-2.3); Osmolality Calculated 283 mOsm/kg (285-295); Sodium 136 mmol/L (136-145); Total Bilirubin 0.2 mg/dL (0.15-1.2); Total Protein 6.9 g/dL (6.6-8.7)
[2024-11-30 03:43] LABS: Alanine Aminotransferase 21 U/L (0-33); Aspartate Amino Transferase 19 U/L (0-32)
[2024-11-30] MEDS: venlafaxine ER (24HR) 150 mg Capsule PO (05:15)
[2024-11-30] MEDS: acetaminophen 325 mg Tablet 650 MG PO ×3 (05:16→18:43)
[2024-11-30 06:27] LABS: Glucose Point of Care 124 mg/dL (70-110)
--- NOTE | 2024-11-30 07:00 | XRR_ITS ---
PROCEDURE INFORMATION: Exam: XR Chest Exam date and time: 11/30/2024 8:13 AM Age: 54 years old Clinical indication: Cough and shortness of breath; Additional info: Follow-up pneumonia TECHNIQUE: Imaging protocol: Radiologic exam of the chest. Views: 1 view. COMPARISON: CT chest abdpel w/*[id number] 11/27/2024 5:51 PM FINDINGS: Lateral view is degraded by artifact Lungs: There is mild interstitial prominence which may indicate mild interstitial edema or interstitial pneumonitis. There are no focal areas of consolidation Pleural spaces: Unremarkable. No pleural effusion. No pneumothorax. Heart/Mediastinum: The heart size is within normal limits. Bones/joints: Unremarkable. XR/XR chest 1V portable [id number] IMPRESSION: 1. Mild interstitial prominence which may indicate mild interstitial edema or interstitial pneumonitis 2. No focal area of consolidation detected though lateral film is significantly degraded by artifact.
--- NOTE | 2024-11-30 08:00 | P.DS_ITS ---
Discharge Providers Date of Admission: 11/27/24 19:50 Date of Discharge: November 30, 2024 Attending Provider at Admission: Matthew Marr MD Attending Provider at Discharge: Latonia Muir MD Primary Care Provider: Andrea Ren DO Diagnoses at Discharge Discharge Diagnosis (1) Clostridium difficile colitis: Status: Acute (2) Uncontrolled type 2 diabetes mellitus: Status: Acute (3) Urinary tract infection: Status: Acute Reason for Visit Reason for Visit: NVD Discharge Data Studies Completed and Pending Completed Studies During Hospitalization Category Date Time Status CT chest abdomen pelvis [CT chest abdpel w/*[id number] Cat Scan 11/27/24 17:35 Completed ] Stat Pending at discharge Category Date Time Status XR chest 2V* [id number] Routine Exams 11/30/24 07:00 Ordered Blood Culture Stat Lab 11/27/24 16:46 Results Radiology Impressions Chest/Abdomen/Pelvis CT 11/27/24 17:35 IMPRESSION: 1. No pulmonary emboli. 2. No focal consolidations. 3. There is a 1.9 cm hypodense lesion in the right lobe of the thyroid gland which is indeterminate. Consider nonemergent thyroid ultrasound for further evaluation. IMPRESSION: 1. Cirrhotic liver. 2. Splenomegaly. 3. No bowel obstruction or inflammatory process associated with the bowel. 4. No free air or significant free fluid in the abdomen or pelvis. 5. The appendix is not visualized but there are no secondary signs of acute appendicitis. 6. Extensive fat stranding in the pannus. No abscess. Laboratory Results WBC 6.91 10^3/uL (3.29-11.43) 11/30/24 02:52 RBC 4.12 10^6/uL (3.85-5.65) 11/30/24 02:52 Hgb 9.90 g/dL (11.27-16.99) L 11/30/24 02:52 Hct 33.5 % (36-47) L 11/30/24 02:52 MCV 81.3 fl (85-98) L 11/30/24 02:52 MCH 24.0 pg (27-33) L 11/30/24 02:52 MCHC 29.6 g/dL (30-55) L 11/30/24 02:52 RDW 19.0 % (12.1-15.1) H 11/30/24 02:52 Plt Count 267 10^3/cmm (157-399) 11/30/24 02:52 MPV 10.4 fL (7.4-10.4) 11/30/24 02:52 Neut % (Auto) 77.8 % 11/30/24 02:52 Lymph % (Auto) 11.1 % 11/30/24 02:52 [place] % (Auto) 6.2 % 11/30/24 02:52 Eos % (Auto) 3.6 % 11/30/24 02:52 Baso % (Auto) 0.7 % 11/30/24 02:52 Neut # (Auto) 5.37 10^3/uL (1.8-7.7) 11/30/24 02:52 Lymph # (Auto) 0.8 10^3/uL (0.8-4.8) 11/30/24 02:52 [place] # (Auto) 0.4 10^3/uL (0.2-0.9) 11/30/24 02:52 Eos # (Auto) 0.3 10^3/uL (0.0-0.8) 11/30/24 02:52 Baso # (Auto) 0.1 10^3/uL (0.0-0.1) 11/30/24 02:52 Nucleated RBC % (auto) 0 % 11/30/24 02:52 Nucleated RBCs # 0.0 /100WBC 11/30/24 02:52 Sodium 136 mmol/L (136-145) 11/30/24 02:52 Potassium 4.0 mmol/L (3.5-5.1) 11/30/24 02:52 Chloride 103 mmol/L (98-107) 11/30/24 02:52 Carbon Dioxide 24 mmol/L (22-29) 11/30/24 02:52 Anion Gap 13.0 (5-19) 11/30/24 02:52 BUN 5 mg/dL (6-20) L 11/30/24 02:52 Creatinine 0.8 mg/dL (0.5-0.9) 11/30/24 02:52 GFR Calculation 74.7 mL/min (90-130) L 11/30/24 02:52 Glucose 158 mg/dL (65-115) H 11/30/24 02:52 POC Glucose 124 mg/dL (70-110) H 11/30/24 06:20 Calculated Osmolality 283 mOsm/kg (285-295) L 11/30/24 02:52 Lactic Acid 1.6 mmol/L (0.5-2.2) 11/27/24 16:44 Calcium 8.8 mg/dL (8.5-10.5) 11/30/24 02:52 Phosphorus 3.7 mg/dL (2.5-4.5) 11/28/24 03:13 Magnesium 1.6 mg/dL (1.7-2.3) L 11/30/24 02:52 Total Bilirubin 0.2 mg/dL (0.15-1.2) 11/30/24 02:52 AST 19 U/L (0-32) 11/30/24 02:52 ALT 21 U/L (0-33) 11/30/24 02:52 Alkaline Phosphatase 147 U/L (35-105) H 11/30/24 02:52 C-Reactive Protein 37.4 mg/L (0.0-4.9) H 11/27/24 16:44 Total Protein 6.9 g/dL (6.6-8.7) 11/30/24 02:52 Albumin 3.2 g/dL (3.5-5.2) L 11/30/24 02:52 Globulin 3.7 g/dL (1.3-4.6) 11/30/24 02:52 Lipase 21 U/L (13-60) 11/27/24 16:44 Urine Color Yellow (Yellow) 11/27/24 17:09 Urine Appearance Clear (CLEAR) 11/27/24 17:09 Urine pH 5.5 (5-7) 11/27/24 17:09 Ur Specific [place] 1.033 (1.005-1.030) H 11/27/24 17:09 Urine Protein 1+ (Negative) A 11/27/24 17:09 Urine Glucose (UA) 3+ (Normal) H 11/27/24 17:09 Urine Ketones Trace (Negative) 11/27/24 17:09 Urine Blood Negative (Negative) 11/27/24 17:09 Urine Nitrate Negative (Negative) 11/27/24 17:09 Urine Bilirubin Negative (Negative) 11/27/24 17:09 Urine Urobilinogen 0.2 mg/dL (Negative) 11/27/24 17:09 Ur Leukocyte Esterase 1+ (Negative) A 11/27/24 17:09 Urine RBC 0-2 /hpf (0-2) 11/27/24 17:09 Urine WBC 51-100 /hpf (0-5) H 11/27/24 17:09 Ur Squamous Epith Cells 0-5 /hpf (0-5) 11/27/24 17:09 Amorphous Sediment Not Reportable 11/27/24 17:09 Urine Bacteria None seen /hpf (NONE) 11/27/24 17:09 Hyaline Casts 3.30 /lpf 11/27/24 17:09 Urine Yeast 1+ /hpf H 11/27/24 17:09 C. difficile (PCR) Positive (Negative) H 11/27/24 16:15 C.difficile Tox Confrm Positive (Negative) H 11/27/24 16:15 Vitals Last Vital Signs Temp 99.3 F 11/30/24 07:23 Pulse 95 11/30/24 07:23 Resp 18 11/30/24 07:23 BP 114/69 11/30/24 07:23 Pulse Ox 89 L 11/30/24 07:23 O2 Del Method Nasal Cannula 11/30/24 07:23 O2 Flow Rate 3 11/30/24 07:23 FiO2 32 11/30/24 01:57 Discharge Plan Discharge Patient Disposition: Home Condition: Stable Prescriptions: New vancomycin 125 mg Capsule See Rx Instructions .ROUTE .COMPLEX Qty: 63 0RF Rx Instructions: 125 mcg 4 times daily x 8 days 125 mcg 2 times daily x 7 days 125 mcg once daily x 7days 125 mcg once every 3 days for 4 weeks Continued Jardiance 25 mg tablet 25 mg PO QAM Linzess 290 mcg capsule 290 mcg PO QAM montelukast [Singulair] 10 mg tablet 10 mg PO DAILY pantoprazole [Protonix] 40 mg tablet,delayed release (DR/EC) 40 mg PO BID ropinirole 1 mg tablet 2 mg PO BEDTIME meclizine [Dramamine (meclizine)] 25 mg tablet 25 mg PO TID PRN (Reason: motion sickness) Qty: 20 0RF ondansetron 4 mg tablet,disintegrating 4 mg PO Q6H PRN (Reason: nausea and vomiting) Qty: 12 0RF Rx Instructions: 340b please venlafaxine [Effexor XR] 150 mg capsule,extended release 24hr 150 mg PO QAM 30 Days Qty: 30 5RF metformin 1,000 mg 1,000 mg PO BID acetaminophen 500 mg Tablet 500 mg PO QID PRN (Reason: Pain) atorvastatin 40 mg 40 mg PO BEDTIME gabapentin 600 mg Tablet 800 mg PO TID Rx Instructions: Take 2 400mg capsules by mouth 3 times a day cetirizine 10 mg Tablet 10 mg PO DAILY baclofen 10 mg 5 mg PO BID docusate sodium 100 mg 100 mg PO BID epinephrine 0.3 mg 0.3 mg IM PRN PRN (Reason: anaphylaxis) venlafaxine 75 mg capsule,extended release 24hr 75 mg PO DAILY cholecalciferol (vitamin D3) 10 mcg (400 unit) Tablet See Rx Instructions .ROUTE .COMPLEX Rx Instructions: Patient does not know current dose. Patient states that she takes Vit D3 daily. insulin lispro [Humalog KwikPen Insulin] 100 unit/mL insulin pen See Rx Instructions .ROUTE .COMPLEX Rx Instructions: sliding scale dose subcutaneously tid with meals Mounjaro 15 mg/0.5 mL pen injector 15 mg SUBCUT Q7D Rx Instructions: Unknown doseage. hydroxyzine pamoate 50 mg capsule 50 mg PO BEDTIME nortriptyline 25 mg capsule 75 mg PO BEDTIME benztropine 1 mg tablet 1 mg PO BID aripiprazole 20 mg tablet 20 mg PO DAILY bumetanide 1 mg tablet 1 mg PO BID azelastine 137 mcg (0.1 %) Zullinger,Non-Aerosol 2 spray INTRANASAL BID PRN (Reason: Congestion) Rx Instructions: administer into each nostril albuterol sulfate 90 mcg/actuation HFA aerosol inhaler 90 mcg INHALATION Q4H PRN (Reason: Shortness Of Breath Or Wheezing) famotidine 40 mg tablet 40 mg PO BEDTIME methenamine hippurate 1 gram tablet 1 g PO BID ferrous sulfate [FeroSul] 325 mg (65 mg iron) tablet 325 mg PO EVERY OTHER DAY Rx Instructions: Take with vitamin C mometasone 50 mcg/actuation spray,non-aerosol 50 mcg INTRANASAL DAILY Rx Instructions: Administer 2 sprays in each nostril daily estradiol 0.01 % (0.1 mg/gram) cream 1 g VAGINAL PRN Rx Instructions: See administration instructions diclofenac sodium 1 % gel 2 g TOPICAL QID Rx Instructions: apply to affected area fesoterodine 4 mg Tablet Extended Release 24 Hr 4 mg PO DAILY Emgality Pen 120 mg/mL pen injector 120 mg SUBCUT Q30D prucalopride [Motegrity] 2 mg tablet 2 mg PO DAILY losartan 50 mg tablet 50 mg PO DAILY Qty: 30 0RF insulin glargine [Lantus Solostar U-100 Insulin] 100 unit/mL (3 mL) insulin pen 45 unit SUBCUT BID Qty: 3 0RF Discontinued glimepiride 4 mg 4 mg PO BID Referrals: Andrea Ren DO [Primary Care Provider] - 7-10 days Discharge Diet: Cardiac and Diabetic Discharge Activity: Resume usual activity Patient Instructions: Abdominal Pain (ED), Opioid Safety Discharge Attestations Status at Discharge: Cognitive status at discharge: cognitively intact , Behavioral status at discharge: cooperative , Coding Level of Care Code Acute Code for [facility] Diagnoses Clostridium difficile colitis A04.72 Uncontrolled type 2 diabetes mellitus Urinary tract infection N39.0
[2024-11-30] MEDS: bumetanide 0.25 mg/mL SDV 4 mL 1 MG IVP ×2 (08:39→17:13)
[2024-11-30] MEDS: cetirizine 10 mg Tablet PO (08:40)
[2024-11-30] MEDS: benztropine 1 mg Tablet PO ×2 (08:40→17:13)
[2024-11-30] MEDS: losartan 50 mg Tablet PO (08:40)
[2024-11-30] MEDS: ARIPiprazole 10 mg Tablet 20 MG PO (08:40)
[2024-11-30] MEDS: cholecalciferol (vitamin D3) 1,000 unit Tablet 1000 UNIT PO (08:40)
[2024-11-30] MEDS: baclofen 10 mg Tablet 5 MG PO ×2 (08:40→17:13)
[2024-11-30] MEDS: gabapentin 400 mg Capsule 800 MG PO ×3 (08:40→20:54)
[2024-11-30] MEDS: montelukast sodium 10 mg Tablet PO (08:40)
[2024-11-30] MEDS: diclofenac 1% Topical Gel 100 gm 1 APPLIC TOPICAL ×2 (08:41→17:14)
[2024-11-30] MEDS: venlafaxine ER (24HR) 75 mg Capsule PO (08:43)
[2024-11-30] MEDS: insulin glargine 100 units/1 mL 30 UNIT SUBCUT ×2 (08:58→18:11)
[2024-11-30] MEDS: metroNIDAZOLE IV 500 MG/100 ML PREMIX 100 MG IV ×2 (08:58→17:13)
[2024-11-30 10:53] LABS: Glucose Point of Care 209 mg/dL (70-110)
[2024-11-30] MEDS: insulin lispro 100 unit/1 mL SUBCUT ×3 (11:24→22:48)
--- NOTE | 2024-11-30 12:02 | P.PN_ITS ---
Subjective 2 Subjective: seen this morning complains of mild chest pain today diarrhea has stopped she feels better overall Vitals/I&O/Wt Last Vital Signs Temp 99.3 F 11/30/24 07:23 Pulse 95 11/30/24 07:23 Resp 18 11/30/24 07:23 BP 114/69 11/30/24 07:23 Pulse Ox 89 L 11/30/24 07:23 O2 Del Method Nasal Cannula 11/30/24 07:23 O2 Flow Rate 2.5 11/30/24 08:00 FiO2 32 11/30/24 01:57 11/29/24 11/30/24 11/30/24 22:59 06:59 14:59 Intake Total 1803.333 / 3453.333 100 / 3553.333 1340 / 1340 Output Total 800 / 800 640 / 1440 Balance 1003.333 / 2653.333 -540 / 2113.333 1340 / 1340 Weight last 48 hrs Weight 128.48 kg Weight 128.457 kg Physical Exam 2 Narrative: General well-developed morbidly obese female in no acute cardiopulmonary distress CV regular rate and rhythm Lungs clear to auscultation bilaterally Abdomen positive bowel sounds soft obese she has a ventral hernia nontender. Bowel tones are diminished Calves 1+ bilateral edema no asymmetry Mentation alert and orient x 3 Data 11/30/24 02:52 11/30/24 02:52 Micro: Microbiology 11/27/24 17:09 Urine Culture - Final Urine,Clean Catch A&P Assessment and plan (1) Clostridium difficile colitis: Patient is admitted for oral vancomycin and metronidazole. Will hydrate with fluid. Decrease current insulin dose and decrease her diet while colitis improves. CT scan was reassuring without worrisome findings of colitis (2) Uncontrolled type 2 diabetes mellitus: At home Lantus dose 45 units twice a day but her A1c is 9.1. Will decrease dose expectantly to 30 units twice a day and continue sliding scale on a 1600-calorie ADA diet. This is in part due to colitis but also for weight loss. Patient is on highest dose tirzepatide and will need to make some diet changes as well (3) Urinary tract infection: Treated with Rocephin 1 g daily picking up tomorrow evening from dose given in the ED MD of cefepime by Dr. Russell Rodriguez 11/28/2024 Continue management per H&P I will switch oral metronidazole to IV. 11/29/2024 seen today continue IV metronidazole continue oral vanc will need prolonged vanc taper at dc feeling better ceftriaxone 1000 mg for UTI urine culture pending. . 11/30/2024 urine culture, no significant growth will need prolonged vanco taper stop ceftriaxone IV fluids stopped continue bumex 1 mg tid check bmp at 6 pm continue iv metronidazole x5days total plan for dc in am if more euvolemic check trops, ekg PDMP PDMP Reviewed: Not Reviewed Attestations 2 Medical Necessity Statement*: C. difficile diarrhea. UTI fluid overloaded, needs diuresis Diagnoses Clostridium difficile colitis A04.72 Uncontrolled type 2 diabetes mellitus Urinary tract infection N39.0
--- NOTE | 2024-11-30 12:05 | ECG_ITS ---
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 Measurements Intervals [place] Rate: 101 P: 56 IN: 159 QRS: 3 QRSD: 97 T: 30 QT: 315 QTc: 409 Interpretive Statements SINUS TACHYCARDIA NONSPECIFIC T-WAVE ABNORMALITY ABNORMAL RHYTHM ECG Compared to ECG 11/15/2024 00:00:16 Sinus rhythm no longer present T-wave abnormality still present Electronically Signed On 11-30-2024 21:55:41 CDT by Jace Madsen M.D. [email or web address]
[2024-11-30 13:28] LABS: Troponin(5th) Baseline 9 ng/L (0-10)
--- NOTE | 2024-11-30 13:33 | PC.SOCIAL ---
IMM Updated Updated pt on IMM. No questions voiced. Provided pt a copy. Initialed, dated, & timed a copy & placed in chart.
--- NOTE | 2024-11-30 14:06 | ECG_ITS ---
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 Measurements Intervals [place] Rate: 96 P: 52 UT: 158 QRS: 5 QRSD: 97 T: 30 QT: 330 QTc: 417 Interpretive Statements SINUS RHYTHM Compared to ECG 11/30/2024 12:34:23 Sinus tachycardia no longer present T-wave abnormality no longer present Electronically Signed On 11-30-2024 22:03:58 CDT by Jace Madsen M.D. [email or web address]
[2024-11-30 16:01] LABS: Troponin 5 2HR 8.63 ng/L (0-10)
[2024-11-30 16:23] LABS: Troponin 5 2HR Delta -0.37 ABS# (0-10)
[2024-11-30] MEDS: cefTRIAXone 1,000 mg SDV 1000 MG IVP (17:13)
[2024-11-30 18:48] LABS: Anion Gap 14.7 (5-19); Blood Urea Nitrogen 4 mg/dL (6-20); Calcium 8.8 mg/dL (8.5-10.5); Carbon Dioxide 26 mmol/L (22-29); Chloride 100 mmol/L (98-107); Creatinine Clr Calc Pharmacy 126.1439; Glomerular Filtration Rate 87.2 mL/min (90-130); Glucose 182 mg/dL (65-115); Osmolality Calculated 286 mOsm/kg (285-295); Potassium 3.7 mmol/L (3.5-5.1); Sodium 137 mmol/L (136-145); Troponin 5 6HR 8.04 ng/L (0-10); Troponin 5 6HR Delta -0.96 ng/L (0-12)
[2024-11-30] MEDS: atorvastatin 40 mg Tablet PO (20:54)
[2024-11-30] MEDS: ropinirole 1 mg Tablet 2 MG PO (20:54)
[2024-11-30] MEDS: famotidine 20 mg Tablet 40 MG PO (20:54)
[2024-11-30] MEDS: nortriptyline 25 mg Capsule 75 MG PO (20:54)
[2024-11-30] MEDS: hyDROXYzine 25 mg Capsule 50 MG PO (20:54)
[2024-11-30] MEDS: enoxaparin 40 mg/0.4 mL Syringe SUBCUT (20:54)
[2024-11-30 22:41] LABS: Glucose Point of Care 170 mg/dL (70-110)
[2024-11-30 22:41] LABS: Glucose Point of Care 294 mg/dL (70-110)
[2024-12-01] VITALS (12 sets, daily range): BP systolic 118–142; BP diastolic 70–71; PULSE 68–102; RESP 16–21; TEMP 36.8–37.4; O2SAT 90–93
[2024-12-01] MEDS: metroNIDAZOLE IV 500 MG/100 ML PREMIX 100 MG IV ×2 (01:07→09:42)
[2024-12-01] MEDS: bumetanide 0.25 mg/mL SDV 4 mL 1 MG IVP ×3 (01:07→16:01)
[2024-12-01] MEDS: oxyCODONE 5 mg IR Tab/Cap PO ×3 (02:23→22:48)
[2024-12-01] MEDS: vancomycin 125 mg Capsule PO ×4 (02:23→20:52)
[2024-12-01] MEDS: acetaminophen 325 mg Tablet 650 MG PO ×2 (02:27→22:46)
[2024-12-01] MEDS: venlafaxine ER (24HR) 150 mg Capsule PO (05:09)
[2024-12-01 05:19] LABS: Basophils % 0.6 %; Eosinophils # 0.3 10^3/uL (0.0-0.8); Eosinophils % 4.2 %; Lymphocytes % 16.5 %; Mean Corpuscular HGB Conc 29.4 g/dL (30-55); Mean Corpuscular Hemoglobin 23.8 pg (27-33); Mean Platelet Volume 10.1 fL (7.4-10.4); Monocytes # 0.5 10^3/uL (0.2-0.9); Monocytes % 7.2 %; Neutrophils # 4.43 10^3/uL (1.8-7.7); Neutrophils % 70.9 %; Nucleated Red Blood Cells % 0 %; Platelet Count 290 10^3/cmm (157-399); Red Cell Distribution Width 19.1 % (12.1-15.1); White Blood Count 6.25 10^3/uL (3.29-11.43)
[2024-12-01 05:37] LABS: Anion Gap 12.7 (5-19); Blood Urea Nitrogen 4 mg/dL (6-20); Calcium 8.9 mg/dL (8.5-10.5); Carbon Dioxide 28 mmol/L (22-29); Chloride 102 mmol/L (98-107); Creatinine Clr Calc Pharmacy 126.0784; Glomerular Filtration Rate 87.2 mL/min (90-130); Glucose 144 mg/dL (65-115); Magnesium 1.6 mg/dL (1.7-2.3); Osmolality Calculated 287 mOsm/kg (285-295); Phosphorus 2.8 mg/dL (2.5-4.5); Potassium 3.7 mmol/L (3.5-5.1); Sodium 139 mmol/L (136-145)
[2024-12-01 06:24] LABS: Glucose Point of Care 152 mg/dL (70-110)
[2024-12-01] MEDS: ARIPiprazole 10 mg Tablet 20 MG PO (09:38)
[2024-12-01] MEDS: insulin lispro 100 unit/1 mL SUBCUT ×4 (09:39→22:50)
[2024-12-01] MEDS: cetirizine 10 mg Tablet PO (09:39)
[2024-12-01] MEDS: cholecalciferol (vitamin D3) 1,000 unit Tablet 1000 UNIT PO (09:39)
[2024-12-01] MEDS: montelukast sodium 10 mg Tablet PO (09:39)
[2024-12-01] MEDS: gabapentin 400 mg Capsule 800 MG PO ×3 (09:40→20:52)
[2024-12-01] MEDS: losartan 50 mg Tablet PO (09:40)
[2024-12-01] MEDS: baclofen 10 mg Tablet 5 MG PO ×2 (09:40→18:25)
[2024-12-01] MEDS: insulin glargine 100 units/1 mL 30 UNIT SUBCUT ×2 (09:40→18:25)
[2024-12-01] MEDS: benztropine 1 mg Tablet PO ×2 (09:41→18:25)
[2024-12-01] MEDS: diclofenac 1% Topical Gel 100 gm 1 APPLIC TOPICAL (09:41)
[2024-12-01] MEDS: ferrous sulfate EC 325 mg Tablet PO (09:41)
[2024-12-01] MEDS: venlafaxine ER (24HR) 75 mg Capsule PO (09:41)
[2024-12-01] MEDS: magnesium sulfate premix 4 GM/100 ML PREMIX IV (09:43)
--- NOTE | 2024-12-01 10:52 | USCV_ITS ---
Maya Figueroa Age: 54 Gender: F : 1970 Exam Date: 12/01/2024 13:20 Ordering Phys: Latonia Muir MD Technologist: [place] [facility] [place]: sob cp BP: 143 / 64 HR: Rhythm: Sinus Technical Quality: Adequate MEASUREMENTS (Male / Female) Normal Values 2D ECHO LV Diastolic Diameter PLAX 4.5 cm 4.2 - 5.9 / 3.9 - 5.3 cm IVS Diastolic Thickness 1.1 cm 0.6 - 1.0 / 0.6 - 0.9 cm IVS Systolic Thickness 1.6 cm LVPW Diastolic Thickness 1.2 cm 0.6 - 1.0 / 0.6 - 0.9 cm LVPW Systolic Thickness 1.7 cm LVOT Diameter 2.1 cm LV Ejection Fraction 2D Teich 62.8 % LV Ejection Fraction MOD 4C 54.0 % LV Ejection Fraction MOD 2C 66.0 % LV Ejection Fraction 2C AL 67.2 % LA Diameter 4.1 cm RA Systolic Volume 4C AL 50.0 ml RA Systolic Volume 4C MOD 47.7 ml LA Sys Volume AL 81.7 cm cubed LA Sys Volume Index AL 34.4 cm cubed/m squared Aorta at Sinotubular Diameter 2.9 cm IVC Diameter 2.3 cm M-MODE LA Ao Ratio MM 1.8 AV Cusp Separation MM 2.5 cm FINDINGS Left Ventricle Normal left ventricular size and systolic function, EF 67%. No gross wall motion normalities noted Right Ventricle Normal right ventricular size and systolic function. Right Atrium Normal right atrial size. Left Atrium Mildly increased left atrial size. Mitral Valve No gross abnormalities noted Aortic Valve No gross abnormalities noted Tricuspid Valve No gross abnormalities noted Pulmonic Valve No gross abnormalities noted Pericardium No pericardial effusion. Aorta Normal aortic annulus size. IVC Inferior vena cava not visualized. CONCLUSIONS Normal left ventricular size and systolic function, EF 67%. No gross wall motion normalities noted. Mildly increased left atrial size. No gross valvular abnormalities. There is no pericardial effusion. There are no intracardiac masses. Compared to the study from 10/30/2024, there may not be a significant change. Dr Jace Madsen MD [facility] (Electronically Signed) Final Date: 02 December 2024 16:05 S
[2024-12-01 11:25] LABS: Glucose Point of Care 197 mg/dL (70-110)
[2024-12-01] MEDS: metOLazone 5 MG Tablet PO (14:34)
--- NOTE | 2024-12-01 15:03 | P.PN_ITS ---
Subjective 2 Subjective: seen this am still complains of intermittent chest pain trops negative ekg did not show acute ischemic changes Vitals/I&O/Wt Last Vital Signs Temp 98.7 F 12/01/24 11:50 Pulse 100 12/01/24 11:50 Resp 16 12/01/24 11:50 BP 126/70 12/01/24 11:50 Pulse Ox 90 12/01/24 11:50 O2 Del Method Nasal Cannula 12/01/24 11:50 O2 Flow Rate 2 12/01/24 08:40 FiO2 32 12/01/24 05:48 12/01/24 12/01/24 12/01/24 06:59 14:59 22:59 Intake Total 400.000 / 2066.369 2947 / 1160 Output Total 600 / 600 1350 / 1350 Balance -200.000 / 1240.000 -190 / -190 Weight last 48 hrs Weight 128.367 kg Weight 128.48 kg Physical Exam 2 Narrative: General well-developed morbidly obese female in no acute cardiopulmonary distress CV regular rate and rhythm Lungs clear to auscultation bilaterally Abdomen positive bowel sounds soft obese she has a ventral hernia nontender. Bowel tones are diminished Calves 1+ bilateral edema no asymmetry Mentation alert and orient x 3 Urinary Catheter Management: [place]: Cath Placed During This Visit: yes Urinary Catheter Date of Insertion: 12/01/24 Urinary Catheter Time of Insertion: 10:45 Data 12/01/24 04:57 12/01/24 04:57 A&P Assessment and plan (1) Clostridium difficile colitis: Patient is admitted for oral vancomycin and metronidazole. Will hydrate with fluid. Decrease current insulin dose and decrease her diet while colitis improves. CT scan was reassuring without worrisome findings of colitis (2) Uncontrolled type 2 diabetes mellitus: At home Lantus dose 45 units twice a day but her A1c is 9.1. Will decrease dose expectantly to 30 units twice a day and continue sliding scale on a 1600-calorie ADA diet. This is in part due to colitis but also for weight loss. Patient is on highest dose tirzepatide and will need to make some diet changes as well (3) Urinary tract infection: Treated with Rocephin 1 g daily picking up tomorrow evening from dose given in the ED of cefepime by Dr. Russell Rodriguez 11/28/2024 Continue management per H&P I will switch oral metronidazole to IV. 11/29/2024 seen today continue IV metronidazole continue oral vanc will need prolonged vanc taper at dc feeling better ceftriaxone 1000 mg for UTI urine culture pending. . 11/30/2024 urine culture, no significant growth will need prolonged vanco taper stop ceftriaxone IV fluids stopped continue bumex 1 mg tid check bmp at 6 pm continue iv metronidazole x5days total plan for dc in am if more euvolemic check trops, ekg 12/01/2024 seen this morning having chest pain intermittently echo is pending trops negative on baseline 2L NC diarrhea has resolved stop IV metronidazole, pt has completed 5 days continue oral vancomycin consult cardiology PDMP PDMP Reviewed: Not Reviewed Attestations 2 Medical Necessity Statement*: having chest pain, therefore needs further workup, echo is pending Diagnoses Clostridium difficile colitis A04.72 Uncontrolled type 2 diabetes mellitus Urinary tract infection N39.0
[2024-12-01] MEDS: cefTRIAXone 1,000 mg SDV 1000 MG IVP (16:01)
--- NOTE | 2024-12-01 16:47 | PM.CONSULT ---
Providers/Reason For Consult Consulting Physician/Specialty*: ELOISA Madsen MD/cardiology Reason for Consult*: Patient admitted to hospital with diarrhea, complaining of chest pain Requesting Physician: Dr. Muir Attending Physician: Latonia Muir MD Primary Care Provider: Andrea Ren DO History of Present Illness History of Present Illness Maya Figueroa is a 54 year old female is admitted to the hospital to the emergency room but she presented with the complaints of diarrhea and chest pain. She is being treated for C. difficile. She was admitted to the hospital last month with complaints of COPD exacerbation, rhinovirus infection and CHF. She is also having episodes of chest pain 4-5 times a day . Cardiology consult is requested for further cardiac evaluation recommendations. This patient has a history of hypertension, diabetes and dyslipidemia for the last more than 10 years. She has been having episodes of chest pain for the last 6 months. She has no definite precipitating factors. Each of these episodes may last anywhere from few seconds to up to 15 minutes. This mainly starts in the left upper part of the chest, radiate to the left shoulder and also to the left arm. Intensity is mild to moderate. No other associated symptoms or radiation of pain. She has been having similar episodes of chest pain 12 years ago. She was seen by cardiology in [place] at that time. She had extensive cardiac workup including an angiogram. She was told to have no blockages at that time. She denies any history of CVA, peripheral artery disease, kidney disease, liver disease or bleeding disorders. Her mother had myocardial infarction in her 60s. Brother had myocardial infarction in his 50s. One of her sisters is known to have congestive heart failure. No other relevant family history. Denies any smoking abuse, alcohol abuse or substance abuse. Review of Systems Narrative: CONSTITUTIONAL: No fever or chills. EYES: No blurring of vision or other visual disturbances lately. ENT: No hoarseness of voice, auditory disturbances or sore throat. CARDIOVASCULAR: As mentioned above. RESPIRATORY: COPD, recent rhinovirus infection as mentioned above GASTROINTESTINAL: C. difficile diarrhea GENITOURINARY: No dysuria or hematuria. INTEGUMENTARY: No skin rashes or history of skin cancer. NEURO: No transient ischemic attacks or amaurosis. PSYCHIATRIC: No history of psychosis or major depression. HEMATOLOGIC: No bleeding disorders or significant anemia. ENDOCRINE: Type 2 diabetes MUSCULOSKELETAL: No recent joint pain or swelling. ALLERGY/IMMUNOLOGY: As mentioned above. Medications/Allergies Home Medications ?Medication ?Instructions ?Recorded ?Confirmed ?Last Taken ?Type acetaminophen 500 mg tablet 500 mg PO QID PRN Pain 12/12/19 11/27/24 Unknown History atorvastatin 40 mg PO BEDTIME 12/12/19 11/27/24 11/26/24 20:00 History baclofen 5 mg PO BID 12/12/19 11/27/24 11/27/24 08:00 History cetirizine 10 mg tablet 10 mg PO DAILY 12/12/19 11/27/24 11/27/24 08:00 History docusate sodium 100 mg PO BID 12/12/19 11/27/24 11/14/24 08:00 History epinephrine 0.3 mg IM PRN PRN anaphylaxis 12/12/19 11/27/24 Unknown History gabapentin 600 mg tablet 800 mg PO TID 12/12/19 11/27/24 11/27/24 08:00 History glimepiride 4 mg PO BID 12/12/19 11/27/24 11/27/24 08:00 History metformin 1,000 mg PO BID 12/12/19 11/27/24 11/27/24 08:00 History empagliflozin 25 mg tablet 25 mg PO QAM 09/18/21 11/27/24 11/27/24 08:00 History (Jardiance) linaclotide 290 mcg capsule 290 mcg PO QAM 09/18/21 11/27/24 11/27/24 08:00 History (Linzess) montelukast 10 mg tablet 10 mg PO DAILY 09/18/21 11/27/24 11/27/24 08:00 History (Singulair) pantoprazole 40 mg tablet,delayed 40 mg PO BID 09/18/21 11/27/24 11/27/24 08:00 History release (Protonix) ropinirole 1 mg tablet 2 mg PO BEDTIME 09/18/21 11/27/24 11/26/24 20:00 History meclizine 25 mg tablet (Dramamine 25 mg PO TID PRN motion sickness 10/13/23 11/27/24 Unknown Rx (meclizine)) #20 tabs ondansetron 4 mg disintegrating 4 mg PO Q6H PRN nausea and 04/12/24 11/27/24 11/14/24 08:00 Rx tablet vomiting #12 tabs aripiprazole 20 mg tablet 20 mg PO DAILY 10/30/24 11/27/24 11/27/24 08:00 History benztropine 1 mg tablet 1 mg PO BID 10/30/24 11/27/24 11/27/24 08:00 History cholecalciferol (vitamin D3) 10 See Rx Instructions .Route .COMPLEX 10/30/24 11/27/24 11/27/24 08:00 History mcg (400 unit) tablet hydroxyzine pamoate 50 mg capsule 50 mg PO BEDTIME 10/30/24 11/27/24 11/26/24 20:00 History insulin lispro 100 unit/mL See Rx Instructions .Route .COMPLEX 10/30/24 11/27/24 11/27/24 08:00 History subcutaneous pen (Humalog KwikPen (U-100) Insulin) nortriptyline 25 mg capsule 75 mg PO BEDTIME 10/30/24 11/27/24 11/26/24 20:00 History tirzepatide 15 mg/0.5 mL 15 mg SUBCUT Q7D 10/30/24 11/27/24 11/14/24 08:00 History subcutaneous pen injector (Mounjaro) venlafaxine 75 mg capsule,extended 75 mg PO DAILY 10/30/24 11/27/24 11/27/24 08:00 History release 24 hr albuterol sulfate 90 mcg/actuation 90 mcg inhalation Q4H PRN 10/31/24 11/27/24 Unknown History aerosol inhaler Shortness Of Breath Or Wheezing azelastine 137 mcg (0.1 %) nasal 2 spray intranasal BID PRN 10/31/24 11/27/24 11/14/24 08:00 History spray Congestion bumetanide 1 mg tablet 1 mg PO BID 10/31/24 11/27/24 11/27/24 08:00 History diclofenac sodium 1 % topical gel 2 g topical QID 10/31/24 11/27/24 11/27/24 08:00 History estradiol 0.01% (0.1 mg/gram) 1 g vaginal PRN 10/31/24 11/27/24 Unknown History vaginal cream famotidine 40 mg tablet 40 mg PO BEDTIME 10/31/24 11/27/24 11/26/24 20:00 History ferrous sulfate 325 mg (65 mg 325 mg PO EVERY OTHER DAY 10/31/24 11/27/24 11/27/24 08:00 History iron) tablet (FeroSul) fesoterodine 4 mg tablet,extended 4 mg PO DAILY 10/31/24 11/27/24 11/27/24 08:00 History release 24 hr galcanezumab-gnlm 120 mg/mL 120 mg SUBCUT Q30D 10/31/24 11/27/24 Unknown History subcutaneous pen injector (Emgality Pen) methenamine hippurate 1 gram tablet 1 g PO BID 10/31/24 11/27/24 11/27/24 08:00 History mometasone 50 mcg/actuation nasal 50 mcg intranasal DAILY 10/31/24 11/27/24 11/27/24 08:00 History spray prucalopride 2 mg tablet 2 mg PO DAILY 10/31/24 11/27/24 11/27/24 08:00 History (Motegrity) insulin glargine 100 unit/mL (3 45 unit (0.45 mL) SUBCUT BID #3 mL 11/02/24 11/27/24 11/27/24 08:00 Rx mL) subcutaneous pen (Lantus Solostar U-100 Insulin) losartan 50 mg tablet 50 mg PO DAILY #30 tabs 11/02/24 11/27/24 11/27/24 08:00 Rx venlafaxine 150 mg 150 mg PO QAM 30 days #30 caps 11/11/24 11/27/24 11/27/24 08:00 Rx capsule,extended release 24 hr (Effexor XR) Allergies Allergy/AdvReac Type Severity Reaction Status Date / Time methocarbamol Allergy Intermediate itching Verified 11/27/24 16:11 Sulfa (Sulfonamide Allergy Unknown Unknown Verified 11/27/24 16:11 Antibiotics) tramadol Allergy ADR-Headach Verified 11/27/24 16:11 e Current Medications Generic Name Dose Route Start Last Admin Trade Name Freq PRN Reason Stop Dose Admin Acetaminophen 650 mg 11/27/24 20:31 12/01/24 02:27 Acetaminophen 325 Mg Tablet PO 650 mg Q6H PRN Administration Mild/Mod Pain Or Temp >/= 101 Aripiprazole 20 mg 06/14/25 09:00 12/01/24 09:38 Aripiprazole 10 Mg Tablet PO 20 mg DAILY MELA Administration Atorvastatin Calcium 40 mg 11/27/24 21:00 11/30/24 20:54 Atorvastatin 40 Mg Tablet PO 40 mg BEDTIME MELA Administration Baclofen 5 mg 11/28/24 09:00 12/01/24 09:40 Baclofen 10 Mg Tablet PO 5 mg BID MELA Administration Benztropine Mesylate 1 mg 11/28/24 09:00 12/01/24 09:41 Benztropine 1 Mg Tablet PO 1 mg BID MELA Administration Bumetanide 1 mg 11/30/24 08:45 12/01/24 16:01 Bumetanide 0.25 Mg/Ml Sdv 4 Ml IVP 1 mg Q8H MELA Administration Ceftriaxone Sodium 1,000 mg 11/28/24 17:00 12/01/24 16:01 Ceftriaxone 1,000 Mg Sdv IVP 1,000 mg Q24H MELA Administration Protocol Cetirizine HCl 10 mg 11/28/24 09:00 12/01/24 09:39 Cetirizine 10 Mg Tablet PO 10 mg DAILY MELA Administration Diclofenac Sodium 1 applic 11/28/24 09:00 12/01/24 16:00 Diclofenac 1% Topical Gel 100 Gm TOPICAL Not Given QID [facility] Enoxaparin Sodium 40 mg 11/27/24 20:31 11/30/24 20:54 Enoxaparin 40 Mg/0.4 Ml Syringe SUBCUT 40 mg Q24H MELA Administration Famotidine 40 mg 11/27/24 21:00 11/30/24 20:54 Famotidine 20 Mg Tablet PO 40 mg BEDTIME MELA Administration Ferrous Sulfate 325 mg 11/29/24 09:00 12/01/24 09:41 Ferrous Sulfate Ec 325 Mg Tablet PO 325 mg EVERY OTHER DAY MELA Administration Gabapentin 800 mg 11/27/24 21:00 12/01/24 14:34 Gabapentin 400 Mg Capsule PO 800 mg TID MELA Administration Hydroxyzine Pamoate 50 mg 11/27/24 21:00 11/30/24 20:54 Hydroxyzine 25 Mg Capsule PO 50 mg BEDTIME MELA Administration Insulin Glargine 30 unit 11/28/24 09:00 12/01/24 09:40 Insulin Glargine 100 Units/1 Ml SUBCUT 30 unit BID MELA Administration Insulin Human Lispro 0 unit 11/27/24 21:00 12/01/24 12:23 Insulin Lispro 100 Unit/1 Ml SUBCUT 4 unit WM&BEDTIME MELA Administration Protocol Losartan Potassium 50 mg 11/28/24 09:00 12/01/24 09:40 Losartan 50 Mg Tablet PO 50 mg DAILY MELA Administration Metolazone 5 mg 12/01/24 14:10 12/01/24 14:34 Metolazone 5 Mg Tablet PO 5 mg DAILY MELA Administration Montelukast Sodium 10 mg 11/28/24 09:00 12/01/24 09:39 Montelukast Sodium 10 Mg Tablet PO 10 mg DAILY MELA Administration Nortriptyline HCl 75 mg 11/27/24 21:00 11/30/24 20:54 Nortriptyline 25 Mg Capsule PO 75 mg BEDTIME MELA Administration Oxycodone HCl 5 mg 11/27/24 20:31 12/01/24 10:01 Oxycodone 5 Mg Ir Tab/Cap PO 5 mg Q6H PRN Administration SEVERE PAIN Ropinirole HCl 2 mg 11/27/24 21:00 11/30/24 20:54 Ropinirole 1 Mg Tablet PO 2 mg BEDTIME MELA Administration Vancomycin HCl 125 mg 11/27/24 21:30 12/01/24 14:34 Vancomycin 125 Mg Capsule PO 125 mg Q6H MELA Administration Venlafaxine HCl 75 mg 11/28/24 09:00 12/01/24 09:41 Venlafaxine Er (24hr) 75 Mg Capsule PO 75 mg DAILY MELA Administration Venlafaxine HCl 150 mg 11/28/24 06:00 12/01/24 05:09 Venlafaxine Er (24hr) 150 Mg Capsule PO 150 mg QAM MELA Administration Vitamin D 1,000 unit 11/28/24 09:00 12/01/24 09:39 Cholecalciferol (Vitamin D3) 1,000 Unit Tablet PO 1,000 unit DAILY MELA Administration PFSH Acute PFSH: Medical History Uncontrolled type 2 diabetes mellitus Diastolic heart failure Pulmonary hypertension COPD (chronic obstructive pulmonary disease) Diabetes Psychiatric care Medication management Sleep apnea treated with nocturnal BiPAP Hypersomnia Major depressive disorder, recurrent, severe with psychotic symptoms Chronic post-traumatic stress disorder Generalized anxiety disorder Surgical History History of back surgery due to a herniated disk. 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 Close due to her mother's health deterioration. She has 3 children and lives her daughter Alice Harris as next of kin decision maker at [phone] Patient wants full code as discussed today with Matthew Marr MD on 11/27/2024 Patient is and currently lives with her nephew and his who help to take care of her Current gender identity: Female Female Reproductive History: Spontaneous abortions: No Vitals/I&O/Wt Last Vital Signs Temp 99.3 F 12/01/24 15:45 Pulse 102 H 12/01/24 15:45 Resp 18 12/01/24 15:45 BP 141/71 12/01/24 15:45 Pulse Ox 91 12/01/24 15:45 O2 Del Method Nasal Cannula 12/01/24 15:45 O2 Flow Rate 2 12/01/24 08:40 FiO2 32 12/01/24 05:48 12/01/24 12/01/24 12/01/24 06:59 14:59 22:59 Intake Total 400.000 / 9798.832 7423 / 1160 Output Total 600 / 600 1350 / 1350 Balance -200.000 / 1240.000 -190 / -190 Weight last 48 hrs Weight 283 lb Weight 283 lb 4 oz Physical Exam Narrative: GENERAL: The patient is alert and oriented times three. Not in any acute distress. Moderately obese HEENT: No significant pallor, icterus or lymphadenopathy.Oral cavity: There are no mucous membrane lesions. NECK: Trachea appears to be central. No masses noted. No JVD or thyromegaly appreciated. RESPIRATORY: Chest is symmetrical. No intercostals muscle retraction or any accessory muscle activation. There is no chest wall tenderness. Breath sounds are heard bilaterally. No rales or rhonchi heard. No evidence of any consolidation. BREASTS: Deferred. HEART: The heart sounds are normal. No S3 or S4. No significant murmurs. No pericardial rub ABDOMEN: No vessel pulsations or distention. No tenderness. No organomegaly appreciated. Bowel sounds are normally heard. : Deferred. RECTAL: Deferred. LYMPHATIC: No lymphadenopathy noted in the neck. EXTREMITIES: No edema or cyanosis. No clubbing. MUSCULOSKELETAL: No acute joint deformities or swelling SKIN: There are no significant rashes or ecchymosis NEUROPSYCHIATRIC: The patient is alert and oriented x3. Appears to be in a good mood. No tremors or rigidity noted. Urinary Catheter Management: [place]: Cath Placed During This Visit: yes Urinary Catheter Date of Insertion: 12/01/24 Urinary Catheter Time of Insertion: 10:45 Data 12/02/24 04:46 12/02/24 04:46 Other Labs: Laboratory Last Values WBC 6.25 10^3/uL (3.29-11.43) 12/01/24 04:57 RBC 4.20 10^6/uL (3.85-5.65) 12/01/24 04:57 Hgb 10.00 g/dL (11.27-16.99) L 12/01/24 04:57 Hct 34.0 % (36-47) L 12/01/24 04:57 MCV 81.0 fl (85-98) L 12/01/24 04:57 MCH 23.8 pg (27-33) L 12/01/24 04:57 MCHC 29.4 g/dL (30-55) L 12/01/24 04:57 RDW 19.1 % (12.1-15.1) H 12/01/24 04:57 Plt Count 290 10^3/cmm (157-399) 12/01/24 04:57 MPV 10.1 fL (7.4-10.4) 12/01/24 04:57 Neut % (Auto) 70.9 % 12/01/24 04:57 Lymph % (Auto) 16.5 % 12/01/24 04:57 [place] % (Auto) 7.2 % 12/01/24 04:57 Eos % (Auto) 4.2 % 12/01/24 04:57 Baso % (Auto) 0.6 % 12/01/24 04:57 Neut # (Auto) 4.43 10^3/uL (1.8-7.7) 12/01/24 04:57 Lymph # (Auto) 1.0 10^3/uL (0.8-4.8) 12/01/24 04:57 [place] # (Auto) 0.5 10^3/uL (0.2-0.9) 12/01/24 04:57 Eos # (Auto) 0.3 10^3/uL (0.0-0.8) 12/01/24 04:57 Baso # (Auto) 0.0 10^3/uL (0.0-0.1) 12/01/24 04:57 Nucleated RBC % (auto) 0 % 12/01/24 04:57 Nucleated RBCs # 0.0 /100WBC 12/01/24 04:57 Sodium 139 mmol/L (136-145) 12/01/24 04:57 Potassium 3.7 mmol/L (3.5-5.1) 12/01/24 04:57 Chloride 102 mmol/L (98-107) 12/01/24 04:57 Carbon Dioxide 28 mmol/L (22-29) 12/01/24 04:57 Anion Gap 12.7 (5-19) 12/01/24 04:57 BUN 4 mg/dL (6-20) L 12/01/24 04:57 Creatinine 0.7 mg/dL (0.5-0.9) 12/01/24 04:57 GFR Calculation 87.2 mL/min (90-130) L 12/01/24 04:57 Glucose 144 mg/dL (65-115) H 12/01/24 04:57 POC Glucose 197 mg/dL (70-110) H 12/01/24 11:14 Calculated Osmolality 287 mOsm/kg (285-295) 12/01/24 04:57 Lactic Acid 1.6 mmol/L (0.5-2.2) 11/27/24 16:44 Calcium 8.9 mg/dL (8.5-10.5) 12/01/24 04:57 Phosphorus 2.8 mg/dL (2.5-4.5) 12/01/24 04:57 Magnesium 1.6 mg/dL (1.7-2.3) L 12/01/24 04:57 Total Bilirubin 0.2 mg/dL (0.15-1.2) 11/30/24 02:52 AST 19 U/L (0-32) 11/30/24 02:52 ALT 21 U/L (0-33) 11/30/24 02:52 Alkaline Phosphatase 147 U/L (35-105) H 11/30/24 02:52 Troponin T Baseline 9 ng/L (0-10) 11/30/24 12:56 Troponin T 120 Minute 8.63 ng/L (0-10) 11/30/24 15:28 Delta Troponin T -0.37 ABS# (0-10) L 11/30/24 15:28 Troponin T Hi Sens 6Hr 8.04 ng/L (0-10) 11/30/24 18:21 Troponin T Hi Sens 6Hr Delta -0.96 ng/L (0-12) L 11/30/24 18:21 C-Reactive Protein 37.4 mg/L (0.0-4.9) H 11/27/24 16:44 Total Protein 6.9 g/dL (6.6-8.7) 11/30/24 02:52 Albumin 3.2 g/dL (3.5-5.2) L 11/30/24 02:52 Globulin 3.7 g/dL (1.3-4.6) 11/30/24 02:52 Lipase 21 U/L (13-60) 11/27/24 16:44 Urine Color Yellow (Yellow) 11/27/24 17:09 Urine Appearance Clear (CLEAR) 11/27/24 17:09 Urine pH 5.5 (5-7) 11/27/24 17:09 Ur Specific [place] 1.033 (1.005-1.030) H 11/27/24 17:09 Urine Protein 1+ (Negative) A 11/27/24 17:09 Urine Glucose (UA) 3+ (Normal) H 11/27/24 17:09 Urine Ketones Trace (Negative) 11/27/24 17:09 Urine Blood Negative (Negative) 11/27/24 17:09 Urine Nitrate Negative (Negative) 11/27/24 17:09 Urine Bilirubin Negative (Negative) 11/27/24 17:09 Urine Urobilinogen 0.2 mg/dL (Negative) 11/27/24 17:09 Ur Leukocyte Esterase 1+ (Negative) A 11/27/24 17:09 Urine RBC 0-2 /hpf (0-2) 11/27/24 17:09 Urine WBC 51-100 /hpf (0-5) H 11/27/24 17:09 Ur Squamous Epith Cells 0-5 /hpf (0-5) 11/27/24 17:09 Amorphous Sediment Not Reportable 11/27/24 17:09 Urine Bacteria None seen /hpf (NONE) 11/27/24 17:09 Hyaline Casts 3.30 /lpf 11/27/24 17:09 Urine Yeast 1+ /hpf H 11/27/24 17:09 C. difficile (PCR) Positive (Negative) H 11/27/24 16:15 C.difficile Tox Confrm Positive (Negative) H 11/27/24 16:15 A&P Assessment and plan (1) Chest pain: Patient chest pain is very atypical. However in view of the multiple risk factors, possibility of underlying coronary ischemia causing this cannot be excluded. For further evaluation of the chest pain, a Myocardial perfusion imaging would be appropriate. This was discussed with the patient in detail. Patient understood this well and consented to proceed. We may go ahead and do schedule the procedure for tomorrow. (2) Diastolic heart failure: Currently the heart failure is compensated. May continue on the current management. (3) COPD (chronic obstructive pulmonary disease): May continue on the current management. (4) Uncontrolled type 2 diabetes mellitus: In the blood sugar seems to be fairly under control. Management as per the primary (5) Benign hypertension: Currently the blood pressure is under control. May continue on the current medications. (6) Dyslipidemia: May continue on the current management. Plan Patient will be scheduled for a Myocardial perfusion imaging in the morning. Based on the results, further recommendations will be made. Thank you for the opportunity to evaluate this patient and make these recommendations PDMP PDMP Reviewed: Not Reviewed Consult Attestations Medical Necessity Statement: Patient requires continued hospital stay for close monitoring and further management Coding Level of Care Code 05888 Diagnoses Chest pain R07.9 Chest pain type: unspecified Acute diastolic heart failure I50.31 Heart failure chronicity: acute Chronic obstructive pulmonary disease, unspecified COPD type J44.9 COPD type: unspecified COPD Uncontrolled type 2 diabetes mellitus with hyperglycemia E11.65 Glycemic state: with hyperglycemia Benign hypertension I10 Dyslipidemia E78.5
--- NOTE | 2024-12-01 17:34 | ECG_ITS ---
[facility] Test Date: 2024-12-02 Pat Name: Maya Figueroa Department: Room: 267 Gender: Female [employer]: : 1970 Requested By: Jace Madsen Order Number: [id number] Ladi MD: Jace Madsen M.D. Interpretive Statements Lung unchanged pre/post procedure; Intraprocedure shortess of breath; Symptoms resoled by discharge PROCEDURE: At the baseline, the EKG revealed sinus rhythm with a poor R wave progression. Diffuse nonspecific T wave changes.. The baseline heart was 95 bpm with a blood pressue of 122/62 mm of Hg Lexiscan was infused over a period of 20 seconds. A total of 0.4 milligrams of Lexiscan was infused. The stress phase was continued for a total of 5 minutes. Heart rate at the end of the stress phase was 104 bpm with a blood pressure 120/55 mm of Hg. The EKG at the peak infusion revealed no significant changes. Sestamibi was injected 20 seconds after the Lexiscan infusion. Heart rate at the end of the recovery phase was 98 bpm with a blood pressure of 122/57 mm of Hg. CONCLUSION: 1. No significant EKG changes with the LexiScan infusion 2. No LexiScan induced chest pain or cardiac arrhythmia 3. Normal blood pressure and heart rate response 4. Sestamibi/sestamibi perfusion scan pending; see separate report. Electronically Signed On 12-06-2024 21:51:17 CDT by Jace Madsen M.D. [email or web address]
[2024-12-01 18:25] LABS: Glucose Point of Care 224 mg/dL (70-110)
[2024-12-01 20:31] LABS: Glucose Point of Care 207 mg/dL (70-110)
[2024-12-01] MEDS: atorvastatin 40 mg Tablet PO (20:51)
[2024-12-01] MEDS: nortriptyline 25 mg Capsule 75 MG PO (20:52)
[2024-12-01] MEDS: enoxaparin 40 mg/0.4 mL Syringe SUBCUT (20:52)
[2024-12-01] MEDS: famotidine 20 mg Tablet 40 MG PO (20:52)
[2024-12-01] MEDS: ropinirole 1 mg Tablet 2 MG PO (20:52)
[2024-12-01] MEDS: hyDROXYzine 25 mg Capsule 50 MG PO (20:52)
[2024-12-02] VITALS (13 sets, daily range): BP systolic 113–157; BP diastolic 57–80; PULSE 75–101; RESP 16–22; TEMP 36.7–37.3; O2SAT 91–97
[2024-12-02] MEDS: bumetanide 0.25 mg/mL SDV 4 mL 1 MG IVP ×3 (01:12→13:01)
[2024-12-02 05:48] LABS: Basophils # 0.1 10^3/uL (0.0-0.1); Eosinophils # 0.3 10^3/uL (0.0-0.8); Eosinophils % 4.6 %; Hematocrit 35.7 % (36-47); Lymphocytes # 1.4 10^3/uL (0.8-4.8); Lymphocytes % 22.3 %; Mean Corpuscular Volume 80.2 fl (85-98); Mean Platelet Volume 10.1 fL (7.4-10.4); Monocytes # 0.4 10^3/uL (0.2-0.9); Monocytes % 6.8 %; Nucleated Red Blood Cells % 0 %; Platelet Count 313 10^3/cmm (157-399); Red Blood Count 4.45 10^6/uL (3.85-5.65); White Blood Count 6.15 10^3/uL (3.29-11.43)
[2024-12-02 06:04] LABS: Anion Gap 10.6 (5-19); Blood Urea Nitrogen 5 mg/dL (6-20); Calcium 9.5 mg/dL (8.5-10.5); Carbon Dioxide 33 mmol/L (22-29); Chloride 99 mmol/L (98-107); Creatinine Clr Calc Pharmacy 107.5555; Glomerular Filtration Rate 74.7 mL/min (90-130); Glucose 149 mg/dL (65-115); Magnesium 1.8 mg/dL (1.7-2.3); Osmolality Calculated 288 mOsm/kg (285-295); Potassium 3.6 mmol/L (3.5-5.1); Sodium 139 mmol/L (136-145)
[2024-12-02 06:27] LABS: Glucose Point of Care 146 mg/dL (70-110)
[2024-12-02] MEDS: regadenoson 0.4 Mg/5 ml Syringe IVP (07:11)
[2024-12-02] MEDS: aminophylline 25 mg/mL SDV 20 mL IVP (07:19)
[2024-12-02] MEDS: insulin glargine 100 units/1 mL 30 UNIT SUBCUT ×2 (09:49→18:09)
[2024-12-02] MEDS: metOLazone 5 MG Tablet PO (09:50)
[2024-12-02] MEDS: baclofen 10 mg Tablet 5 MG PO ×2 (09:50→18:09)
[2024-12-02] MEDS: venlafaxine ER (24HR) 75 mg Capsule PO (09:50)
[2024-12-02] MEDS: gabapentin 400 mg Capsule 800 MG PO ×3 (09:50→20:42)
[2024-12-02] MEDS: cholecalciferol (vitamin D3) 1,000 unit Tablet 1000 UNIT PO (09:50)
[2024-12-02] MEDS: ARIPiprazole 10 mg Tablet 20 MG PO (09:50)
[2024-12-02] MEDS: oxyCODONE 5 mg IR Tab/Cap PO ×2 (09:51→20:49)
[2024-12-02] MEDS: vancomycin 125 mg Capsule PO ×3 (09:51→20:42)
[2024-12-02] MEDS: losartan 50 mg Tablet PO (09:51)
[2024-12-02] MEDS: cetirizine 10 mg Tablet PO (09:51)
[2024-12-02] MEDS: montelukast sodium 10 mg Tablet PO (09:52)
[2024-12-02] MEDS: benztropine 1 mg Tablet PO ×2 (09:52→18:10)
--- NOTE | 2024-12-02 10:02 | PC.SOCIAL ---
IMM Update pg 2 of IMM Updated and reviewed w/ patient. Copy provided and copy dated, initialed and placed in chart.
[2024-12-02] MEDS: venlafaxine ER (24HR) 150 mg Capsule PO (11:52)
--- NOTE | 2024-12-02 11:53 | P.PN_ITS ---
Subjective 2 Subjective: seen this am states cp is better but not completely resolved awaiting results of stress test no longer having diarrhea Vitals/I&O/Wt Last Vital Signs Temp 98.9 F 12/02/24 11:33 Pulse 95 12/02/24 11:33 Resp 17 12/02/24 11:33 BP 113/77 12/02/24 11:33 Pulse Ox 91 12/02/24 11:33 O2 Del Method Nasal Cannula 12/02/24 11:33 O2 Flow Rate 2 12/02/24 08:32 FiO2 32 12/01/24 05:48 12/01/24 12/02/24 12/02/24 22:59 06:59 14:59 Intake Total 480 / 1640 Output Total 2700 / 4050 1000 / 5050 2850 / 2850 Balance -2220 / -2410 -1000 / -3410 -2850 / -2850 Weight last 48 hrs Weight 122.924 kg Weight 128.367 kg Physical Exam 2 Narrative: General well-developed morbidly obese female in no acute cardiopulmonary distress CV regular rate and rhythm Lungs clear to auscultation bilaterally Abdomen positive bowel sounds soft obese she has a ventral hernia nontender. Bowel tones are diminished Calves 1+ bilateral edema no asymmetry Mentation alert and orient x 3 Urinary Catheter Management: [place]: Cath Placed During This Visit: yes Reason for Continuing Indwelling Catheter: Other Urinary Catheter Date of Insertion: 12/01/24 Urinary Catheter Time of Insertion: 10:45 Data 12/02/24 04:46 12/02/24 04:46 A&P Assessment and plan (1) Clostridium difficile colitis: Patient is admitted for oral vancomycin and metronidazole. Will hydrate with fluid. Decrease current insulin dose and decrease her diet while colitis improves. CT scan was reassuring without worrisome findings of colitis (2) Uncontrolled type 2 diabetes mellitus: At home Lantus dose 45 units twice a day but her A1c is 9.1. Will decrease dose expectantly to 30 units twice a day and continue sliding scale on a 1600-calorie ADA diet. This is in part due to colitis but also for weight loss. Patient is on highest dose tirzepatide and will need to make some diet changes as well (3) Urinary tract infection: Treated with Rocephin 1 g daily picking up tomorrow evening from dose given in the ED MD of cefepime by Dr. Russell Rodriguez 11/28/2024 Continue management per H&P I will switch oral metronidazole to IV. 11/29/2024 seen today continue IV metronidazole continue oral vanc will need prolonged vanc taper at dc feeling better ceftriaxone 1000 mg for UTI urine culture pending. . 11/30/2024 urine culture, no significant growth will need prolonged vanco taper stop ceftriaxone IV fluids stopped continue bumex 1 mg tid check bmp at 6 pm continue iv metronidazole x5days total plan for dc in am if more euvolemic check trops, ekg 12/01/2024 seen this morning having chest pain intermittently echo is pending trops negative on baseline 2L NC diarrhea has resolved stop IV metronidazole, pt has completed 5 days continue oral vancomycin consult cardiology 12/02/2024 seen today cp improved but not resolved awaiting results of stress test diarrhea resolved continue oral vancomycin consulted cardiology, await further recommedations on1L NC toda Patient was 9 L positive since admission yesterday however now is 3 L positive. At 5 L urine output in last 24 hours. Chest pain has improved. I believe her chest pain may have been secondary to central pulmonary congestion however we cannot rule out coronary ischemia. Will await results of stress test. Will discuss with cardiology. Echocardiogram is pending at this time PDMP PDMP Reviewed: Not Reviewed Attestations 2 Medical Necessity Statement*: Chest pain workup. Patient awaiting results of stress testing. Decision to keep overnight versus discharge home today will depend upon results and discussion with cardiology. Diagnoses Clostridium difficile colitis A04.72 Uncontrolled type 2 diabetes mellitus with hyperglycemia E11.65 Glycemic state: with hyperglycemia Urinary tract infection N39.0
[2024-12-02 12:08] LABS: Glucose Point of Care 199 mg/dL (70-110)
[2024-12-02] MEDS: insulin lispro 100 unit/1 mL SUBCUT ×3 (13:00→21:55)
[2024-12-02] MEDS: aspirin 81 mg EC Tablet PO (15:31)
[2024-12-02] MEDS: clopidogrel 75 mg Tablet PO (15:32)
[2024-12-02 16:31] LABS: Glucose Point of Care 208 mg/dL (70-110)
--- NOTE | 2024-12-02 17:34 | NMCV_ITS ---
NM kaleb perf SPECT r/s* [id number] Maya Figueroa Age: 54 Gender: F : 1970 Exam Date: 12/02/2024 06:41 Ordering Phys: Jace Madsen MD ([email or web address]) Technologist: GONZALES Waldron Exam Location: [facility] Indications: cp STRESS TEST [facility] IMAGE PROTOCOL Rest/Stress 1 Lexiscan Day Radiopharmaceutical Dose (mCi) Administration Site Administered by Rest: Tc-99m 10.9 IV GONZALES Hyatt Sestamibi Stress:Tc-99m 33 IV GONZALES Hyatt Sestamibi Rest: 02-Dec-2024 60 Discovery 630 Stress: 02-Dec-2024 30 Discovery 630 0.4mg Lexiscan. Images obtained in supine and prone position. SPECT RESULTS Technical Quality: Good Raw Data Analysis: Normal Image Corrections: No attenuation or motion correction applied Summed Stress Score: 3 Summed Rest Score: 0 Summed Difference Score: 3 PERFUSION FINDINGS Small to moderate area of slightly decreased tracer uptake involving the mid and apical inferior and mid inferolateral segments. Reversibility is noted in this area , with the supine imaging. However with the prone imaging, no significant reversible defects were noted FUNCTIONAL RESULTS (calculated via Gated SPECT) Stress Image LV EF (%): 63 Stress EDV (mL):120 TID: 0.99 Stress ESV (mL):44 FUNCTIONAL FINDINGS: Segmental wall motion analysis revealing no gross wall motion abnormalities IMPRESSIONS 1. Myocardial perfusion imaging revealing small to moderate area of slight reversibility in the inferior wall and inferolateral wall regions, may suggest ischemia or distribution of the right coronary artery/circumflex artery. However because of the inconsistency with the prone imaging, the reliability is questionable 2. Normal LV ejection fraction of 63%. 3. LV wall motion analysis revealing no gross wall motion abnormalities. 4. Normal LV volume No similar previous studies are available for comparison Dr Jace Madsen MD FAC (Electronically Signed) Final Date: 02 December 2024 08:48 S
[2024-12-02] MEDS: cefTRIAXone 1,000 mg SDV 1000 MG IVP (18:09)
[2024-12-02] MEDS: aspirin 325 mg Tablet PO (18:10)
[2024-12-02] MEDS: diphenhydrAMINE 50 mg Capsule PO (18:10)
[2024-12-02] MEDS: sodium chloride 0.9% 1,000 ML 50 ML IV (18:29)
--- NOTE | 2024-12-02 19:19 | PC.NURSE ---
Called report to Nilda in CSU.
[2024-12-02] MEDS: nortriptyline 25 mg Capsule 75 MG PO (20:42)
[2024-12-02] MEDS: famotidine 20 mg Tablet 40 MG PO (20:42)
[2024-12-02] MEDS: ropinirole 1 mg Tablet 2 MG PO (20:42)
[2024-12-02] MEDS: hyDROXYzine 25 mg Capsule 50 MG PO (20:42)
[2024-12-02] MEDS: atorvastatin 40 mg Tablet PO (20:43)
[2024-12-02 21:25] LABS: Glucose Point of Care 216 mg/dL (70-110)
[2024-12-03] VITALS (27 sets, daily range): BP systolic 92–146; BP diastolic 59–85; PULSE 81–93; RESP 15–23; TEMP 36.2–36.7; O2SAT 90–97
[2024-12-03] MEDS: bumetanide 0.25 mg/mL SDV 4 mL 1 MG IVP (00:12)
[2024-12-03] MEDS: vancomycin 125 mg Capsule PO ×2 (03:55→09:02)
[2024-12-03 05:15] LABS: Basophils # 0.1 10^3/uL (0.0-0.1); Basophils % 1.2 %; Eosinophils # 0.3 10^3/uL (0.0-0.8); Eosinophils % 4.2 %; Hematocrit 38.9 % (36-47); Lymphocytes # 1.7 10^3/uL (0.8-4.8); Lymphocytes % 24.8 %; Mean Corpuscular HGB Conc 30.1 g/dL (30-55); Mean Corpuscular Volume 79.9 fl (85-98); Mean Platelet Volume 10.2 fL (7.4-10.4); Monocytes # 0.5 10^3/uL (0.2-0.9); Monocytes % 6.8 %; Neutrophils % 62.3 %; Nucleated Red Blood Cells % 0 %; Platelet Count 341 10^3/cmm (157-399); Red Blood Count 4.87 10^6/uL (3.85-5.65); Red Cell Distribution Width 18.6 % (12.1-15.1)
[2024-12-03 05:30] LABS: Anion Gap 14.4 (5-19); Blood Urea Nitrogen 8 mg/dL (6-20); Calcium 9.6 mg/dL (8.5-10.5); Carbon Dioxide 34 mmol/L (22-29); Chloride 94 mmol/L (98-107); Creatinine Clr Calc Pharmacy 75.0552; Glomerular Filtration Rate 65.2 mL/min (90-130); Glucose 183 mg/dL (65-115); Magnesium 1.7 mg/dL (1.7-2.3); Osmolality Calculated 291 mOsm/kg (285-295); Potassium 3.4 mmol/L (3.5-5.1); Sodium 139 mmol/L (136-145)
[2024-12-03 06:12] LABS: Glucose Point of Care 183 mg/dL (70-110)
--- NOTE | 2024-12-03 06:21 | XACV_ITS ---
Exam Room: [facility] Ht: 168 cm Wt: 77 kg BSA: 1.91 m2 Gender: Female : 1970 Any Known Allergies: Other Exam Priority: Routine Procedure(s): Procedure Description: Diagnostic procedure Procedure Description: Coronary Angiography Cale OSCAR; Diagnostic Cath Status: Urgent Diagnostic Findings * The left main extremely short vessel with no significant stenotic lesions. * The Left anterior descending artery is a medium caliber vessel which appears to be very tortuous and taper off towards the LV apex. Wraparound the apex minimally. It gives off small diagonal branches which were found to have no significant lesions.. * The left circumflex artery is a medium caliber vessel which gives of a high obtuse marginal branch (intermedius artery) with no significant lesions. The circumflex proper also was found to have no significant lesions.. * The right coronary artery is a dominant medical vessel with no significant lesions. Conclusions 1. 54-year-old female with multiple risk factors for coronary disease, presented with C. difficile diarrhea and chest pain. She apparently has been having these episodes of chest pain lately. She had a Myocardial perfusion imaging which revealed reversible defect in the distribution of the left circumflex artery. In view of the patient's ongoing symptoms and abnormal Myocardial perfusion imaging, in order to further evaluate the coronary status, a cardiac catheterization was recommended. Patient underwent left heart catheterization with left and right coronary angiogram today. The findings are as follows. 2. No significant obstructive coronary disease. Normal LV ejection fraction of 50%. LVEDP of 22 mmHg suggesting left-ventricular diastolic dysfunction. Diagnostic RX Recommendation: other cardiac therapy w/o CABG/PCI LV EDP: 22 mmHg Ventriculography Ejection Fraction: 50.0 % Left Ventriculography Findings: * The LV gram was performed the NAVARRETE projection. LV cavity appears to be normal size. LV ejection fraction was around 50%. No filling defects were noted. No significant mitral valve prolapse. The LVEDP was 22 mmHg. Pressures Phase:Rest AO : 98 / 75 ( 85 ) @ 8:32:00 AM 109 / 68 ( 83 ) @ 8:33:00 AM 119 / 64 ( 84 ) @ 8:46:00 AM 118 / 63 ( 85 ) @ 8:46:00 AM LV : 133 / 4 / 22 @ 8:45:00 AM 124 / 4 / 22 @ 8:46:00 AM 125 / 3 / 23 @ 8:46:00 AM Valves Phase:DefaultPhase AV : 6.0 @ 7:59:31 AM AV Mean Gradient: 10.0 @ 7:59:31 AM Clinical Evaluation EBL: 5mL-10mL Procedural Details Procedure Consent Obtained. Pre-Procedure Time Out. Identified patient by full name and date of as verbalized by the patient/guarantor. Does the consent match the physician's order: Yes. Accurate & Complete Informed Consent: Yes. Inpatient/Outpatient History & Physical on Chart: Yes. If H&P is completed, is and addenduem needed: No; If yes, is the addendum complete: N/A. Visualize and Verify Site with Patient/Guarantor: N/A. Relevant Radiology Images available: N/A. Pre-op teaching completed and patient verbalized understanding. The risks, benefits, and alternatives of sedation and/or procedure were discussed by physician. The patient agrees to continue. Procedure started. HA Clinical Fraility Score: 2: Well. 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 Chest Pain Symptom Assessment: Typical Angina Symptoms. Cardiovascular Instability: No. Correct patient, site and procedure confirmed by cath team. PERRLA. Strong, equal hand digital data analyst bilaterally. Lungs clear x 5 lobes. IV Site on Arrival: 20 gauge in the left anticubital. IV Site on Arrival: 22 gauge in the left forearm. IV Fluids: 0.9% NaCl at KVO. 0 mL infused prior to vat house laborer. Oxygen started at 2liters/min via nasal canula. right groin was prepped with chloroprep then draped in the usual sterile fashion. right radial was prepped with chloroprep then draped in the usual sterile fashion. Baseline sample Acquired. HR: 94 BPM. Physician notified. Equipment: 6F - Radial. Cardiac Cath Pack. ACIST Manifold Kit Model BT 2000. Heparinized Saline (2 units/mL), 1000 mL bag. Physician arrived. Physician scrubbed in. Immediate Pre-Procedure Time Out. Correct Patient: Yes; Correct Procedure: Yes; Correct Site: Yes; Correct Patient Position: Yes; Correct Supplies: Yes; Dried Flammable Prep: Yes; Blood Products Available: N/A;. Lidocaine 1% infiltrated to the right radial. Arterial access obtained. A 5 guinean Kory catheter in over wire. Multiple views taken of left coronary artery. Catheter redirected to the RCA. Catheter removed over the exchange wire. A 5 guinean JR4 catheter in over wire. Multiple views taken of right coronary artery. Catheter removed over the exchange wire. A 5 guinean Angled Pig catheter in over wire. EDP Sample taken: LV 133/4,22; HR: 93 BPM; SpO2: 98%. LV gram performed in NAVARRETE @ 10 mL/second for a total of 30 mL. EDP Sample taken: LV 124/4,22; HR: 93 BPM; SpO2: 98%. Pullback taken: LV 125/3,23; AO 119/64(84); Mean: 10mmHg, Peak to Peak: 6mmHg, SEP: 25sec/min; HR: 93 BPM; SpO2: 98%. Catheter removed over the exchange wire. Physician scrubbed out. A TR Band was successful obtaining hemostatsis at the Right Radial artery insertion site. TR band placed. Hemostasis obtained. Post Procedure: Pulses reassessed and unchanged. PERRLA. Strong, equal hand digital data analyst bilaterally. No VTE prophylaxis required. Medication's Wasted: Lidocaine 1% = 18 mL. Medication's Wasted: Nitro = 49.8 mg. Medication's Wasted: Heparin = 1000 units. Medication's Wasted: Other = fentanyl 50 mcg. Total IV fluids: 275 mL. Contrast type used: Visipaque 320 mgI/mL, 500 mL bottle. Post-op diagnosis: normal coronaries, high edp, lv dysfunction. Complications: none. Estimated blood loss: 5mL-10mL. Responsiveness - Normal response to verbal stimuli; alert and oriented, PERRLA. Airway - Unaffected, no intervention required; spontaneous ventilation. Circulation: W/N/L, pulses unchanged. Nausea/Vomiting: No. Procedure completed. Patient transferred by bed to 1st floor. Kaleigh Jimenez RN was relieved by See Stevens, ROMIE as monitoring person. Vital chart was stopped. Access Site Site: Right Radial artery Sheath Size: 6 Fr Hemostasis Method: TR Band Hemostasis Success: Successful Procedure Medications Start: 7:19 AM Stop: 7:19 AM Medication: Benadryl Amount: 50 mg Route: I.V. Start: 7:20 AM Stop: 7:20 AM Medication: Versed Amount: 1 mg Route: I.V. Start: 7:22 AM Stop: 7:22 AM Medication: Versed Amount: 1 mg Route: I.V. Start: 7:22 AM Stop: 7:22 AM Medication: Fentanyl Amount: 25 mcg Route: I.V. Start: 7:28 AM Stop: 7:28 AM Medication: Versed Amount: 1 mg Route: I.V. Start: 7:30 AM Stop: 7:30 AM Medication: Verapamil Amount: 5 mg Route: I.A. Start: 7:30 AM Stop: 7:30 AM Medication: Nitrogylcerin Amount: 200 mcg Route: I.A. Start: 7:30 AM Stop: 7:30 AM Medication: 0.9% Saline Amount: 250 ml Route: I.V. bolus Start: 7:32 AM Stop: 7:32 AM Medication: Fentanyl Amount: 25 mcg Route: I.V. Start: 7:34 AM Stop: 7:34 AM Medication: Heparin Amount: 5000 units Route: I.V. Start: 7:43 AM Stop: 7:43 AM Medication: Versed Amount: 1 mg Route: I.V. I, the attending physician, have reviewed and verified all procedure medications. Yes, all medications given per verbal order History/Risk Factors Hypertension: Yes Dyslipidemia: Yes Peripheral Arterial Disease (PAD): No Myocardial Infarction (GA): No Obesity: No Renal Disease: No Tobacco Use: Former Prior Interventions PCI: No CABG: No Valve Surgery: No Report Signatures Finalized by Dr Jace Madsen MD [facility] on 12/04/2024 12:00 PM
--- NOTE | 2024-12-03 07:19 | W.PM.OPSUD ---
Surgery/Procedure H&P Update DATE OF PROCEDURE: December 03, 2024 DATE H&P PERFORMED: 12/01/24 H&P UPDATE INFORMATION: I have reviewed H&P completed within last 30 days, I have examined patient prior to procedure and No changes to prior documentation PREOP DIAGNOSIS: ASHD PRIMARY INDICATION FOR PROCEDURE: Chest pain/abnormal stress test/multiple risk factors CAD PLANNED PROCEDURE: Operation Date: 12/03/24 07:00 Proposed Procedures p Cardiac Catheterization(Left) - Jace Madsen MD PATIENT REASSESSED PRIOR TO SEDATION, WITH NO CHANGE NOTED: Yes PHYSICAL EXAM: alert, oriented x 3, clear to auscultation bilaterally and regular rate & rhythm AIRWAY EVAL/ANESTHESIA PLAN: normal airway, see other exam findings, ASA II, Monitored Anesthesia, Local Anesthesia, Risks, benefits & alternatives of sedation and/or procedure discussed and Patient agrees to continue as planned
--- NOTE | 2024-12-03 07:53 | PM.OP ---
Operative Report Date of procedure: December 03, 2024 Surgeon: Jace Madsen MD Procedure: This patient underwent left heart catheterization with left and right coronary angiogram and LV angiogram today. She was found to have no significant coronary artery disease. LV ejection fraction was around 50%. No significant mitral valve prolapse or mitral regurgitation. Her LVEDP was 22 mmHg, consistent with left ventricular diastolic dysfunction. Plan-continue with medical management
[2024-12-03] MEDS: venlafaxine ER (24HR) 75 mg Capsule PO (08:58)
[2024-12-03] MEDS: gabapentin 400 mg Capsule 800 MG PO (08:58)
[2024-12-03] MEDS: insulin lispro 100 unit/1 mL SUBCUT (08:59)
[2024-12-03] MEDS: insulin glargine 100 units/1 mL 30 UNIT SUBCUT (08:59)
[2024-12-03] MEDS: montelukast sodium 10 mg Tablet PO (09:01)
[2024-12-03] MEDS: cetirizine 10 mg Tablet PO (09:01)
[2024-12-03] MEDS: losartan 50 mg Tablet PO (09:02)
[2024-12-03] MEDS: baclofen 10 mg Tablet 5 MG PO (09:02)
[2024-12-03] MEDS: benztropine 1 mg Tablet PO (09:02)
[2024-12-03] MEDS: oxyCODONE 5 mg IR Tab/Cap PO (09:02)
[2024-12-03] MEDS: ARIPiprazole 10 mg Tablet 20 MG PO (09:02)
[2024-12-03] MEDS: aspirin 81 mg EC Tablet PO (09:03)
[2024-12-03] MEDS: clopidogrel 75 mg Tablet PO (09:03)
[2024-12-03] MEDS: metOLazone 5 MG Tablet PO (09:03)
[2024-12-03] MEDS: ferrous sulfate EC 325 mg Tablet PO (09:03)
[2024-12-03] MEDS: cholecalciferol (vitamin D3) 1,000 unit Tablet 1000 UNIT PO (09:03)
--- NOTE | 2024-12-03 09:10 | P.DS_ITS ---
Discharge Providers Date of Admission: 11/27/24 19:50 Date of Discharge: December 03, 2024 Attending Provider at Admission: Matthew Marr MD Attending Provider at Discharge: Latonia Muir MD Primary Care Provider: Andrea Ren DO Diagnoses at Discharge Discharge Diagnosis (1) Clostridium difficile colitis: Status: Acute (2) Uncontrolled type 2 diabetes mellitus: Status: Acute Qualifiers: Glycemic state: with hyperglycemia Qualified Code(s): E11.65 - Type 2 diabetes mellitus with hyperglycemia (3) Urinary tract infection: Status: Resolved Reason for Visit Reason for Visit: NVD Hospital Course Hospital Course Patient was mated to the hospital with recurrent C. difficile colitis. She recently Her 10-day course of vancomycin. She has uncontrolled diarrhea once again. IV metronidazole was present. She was given vancomycin orally once again and discharged home on prolonged vancomycin taper. Diarrhea resolved by the time she was discharged. She also developed chest pain during hospital stay forward stress test was pursued. There was artifact on stress test however due to patient's continued chest pain coronary angiogram was performed. It showed patent coronary arteries. Patient was discharged home in stable condition. Physical Exam Narrative: General well-developed morbidly obese female in no acute cardiopulmon yosi distress CV regular rate and rhythm Lungs clear to auscultation bilaterally Abdomen positive bowel sounds soft obese she has a ventral hernia nontender. Bowel tones are diminished Calves 1+ bilateral edema no asymmetry Mentation alert and orient x 3 Urinary Catheter Management: [place]: Cath Placed During This Visit: yes Reason for Continuing Indwelling Catheter: Other Urinary Catheter Date of Insertion: 12/01/24 Urinary Catheter Time of Insertion: 10:45 Discharge Data Studies Completed and Pending Completed Studies During Hospitalization Category Date Time Status CT chest abdomen pelvis [CT chest abdpel w/*[id number] Cat Scan 11/27/24 17:35 Completed ] Stat Cardiac Stress Test MIBI [Sestamibi Stress Test Request Exams 12/01/24 17:34 Draft ] Routine XR chest 1V portable [id number] Routine Exams 11/30/24 07:00 Completed NM kaleb perf SPECT r/s* [id number] Routine Nuc Med 12/02/24 17:34 Completed CV. echo limited [id number] Urgent Ultrasound 12/01/24 10:52 Completed Pending at discharge Category Date Time Status OUTPATIENT SERVICES DIRECTOR request for service Routine Exams 12/03/24 06:21 Ordered Radiology Impressions Chest/Abdomen/Pelvis CT 11/27/24 17:35 IMPRESSION: 1. No pulmonary emboli. 2. No focal consolidations. 3. There is a 1.9 cm hypodense lesion in the right lobe of the thyroid gland which is indeterminate. Consider nonemergent thyroid ultrasound for further evaluation. IMPRESSION: 1. Cirrhotic liver. 2. Splenomegaly. 3. No bowel obstruction or inflammatory process associated with the bowel. 4. No free air or significant free fluid in the abdomen or pelvis. 5. The appendix is not visualized but there are no secondary signs of acute appendicitis. 6. Extensive fat stranding in the pannus. No abscess. Chest X-Ray 11/30/24 07:00 IMPRESSION: 1. Mild interstitial prominence which may indicate mild interstitial edema or interstitial pneumonitis 2. No focal area of consolidation detected though lateral film is significantly degraded by artifact. Laboratory Results WBC 6.90 10^3/uL (3.29-11.43) 12/03/24 04:42 RBC 4.87 10^6/uL (3.85-5.65) 12/03/24 04:42 Hgb 11.70 g/dL (11.27-16.99) 12/03/24 04:42 Hct 38.9 % (36-47) 12/03/24 04:42 MCV 79.9 fl (85-98) L 12/03/24 04:42 MCH 24.0 pg (27-33) L 12/03/24 04:42 MCHC 30.1 g/dL (30-55) 12/03/24 04:42 RDW 18.6 % (12.1-15.1) H 12/03/24 04:42 Plt Count 341 10^3/cmm (157-399) 12/03/24 04:42 MPV 10.2 fL (7.4-10.4) 12/03/24 04:42 Neut % (Auto) 62.3 % 12/03/24 04:42 Lymph % (Auto) 24.8 % 12/03/24 04:42 Benzie % (Auto) 6.8 % 12/03/24 04:42 Eos % (Auto) 4.2 % 12/03/24 04:42 Baso % (Auto) 1.2 % 12/03/24 04:42 Neut # (Auto) 4.30 10^3/uL (1.8-7.7) 12/03/24 04:42 Lymph # (Auto) 1.7 10^3/uL (0.8-4.8) 12/03/24 04:42 Benzie # (Auto) 0.5 10^3/uL (0.2-0.9) 12/03/24 04:42 Eos # (Auto) 0.3 10^3/uL (0.0-0.8) 12/03/24 04:42 Baso # (Auto) 0.1 10^3/uL (0.0-0.1) 12/03/24 04:42 Nucleated RBC % (auto) 0 % 12/03/24 04:42 Nucleated RBCs # 0.0 /100WBC 12/03/24 04:42 Sodium 139 mmol/L (136-145) 12/03/24 04:42 Potassium 3.4 mmol/L (3.5-5.1) L 12/03/24 04:42 Chloride 94 mmol/L (98-107) L 12/03/24 04:42 Carbon Dioxide 34 mmol/L (22-29) H 12/03/24 04:42 Anion Gap 14.4 (5-19) 12/03/24 04:42 BUN 8 mg/dL (6-20) 12/03/24 04:42 Creatinine 0.9 mg/dL (0.5-0.9) 12/03/24 04:42 GFR Calculation 65.2 mL/min (90-130) L 12/03/24 04:42 Glucose 183 mg/dL (65-115) H 12/03/24 04:42 POC Glucose 183 mg/dL (70-110) H 12/03/24 06:01 Calculated Osmolality 291 mOsm/kg (285-295) 12/03/24 04:42 Lactic Acid 1.6 mmol/L (0.5-2.2) 11/27/24 16:44 Calcium 9.6 mg/dL (8.5-10.5) 12/03/24 04:42 Phosphorus 2.8 mg/dL (2.5-4.5) 12/01/24 04:57 Magnesium 1.7 mg/dL (1.7-2.3) 12/03/24 04:42 Total Bilirubin 0.2 mg/dL (0.15-1.2) 11/30/24 02:52 AST 19 U/L (0-32) 11/30/24 02:52 ALT 21 U/L (0-33) 11/30/24 02:52 Alkaline Phosphatase 147 U/L (35-105) H 11/30/24 02:52 Troponin T Baseline 9 ng/L (0-10) 11/30/24 12:56 Troponin T 120 Minute 8.63 ng/L (0-10) 11/30/24 15:28 Delta Troponin T -0.37 ABS# (0-10) L 11/30/24 15:28 Troponin T Hi Sens 6Hr 8.04 ng/L (0-10) 11/30/24 18:21 Troponin T Hi Sens 6Hr Delta -0.96 ng/L (0-12) L 11/30/24 18:21 C-Reactive Protein 37.4 mg/L (0.0-4.9) H 11/27/24 16:44 Total Protein 6.9 g/dL (6.6-8.7) 11/30/24 02:52 Albumin 3.2 g/dL (3.5-5.2) L 11/30/24 02:52 Globulin 3.7 g/dL (1.3-4.6) 11/30/24 02:52 Lipase 21 U/L (13-60) 11/27/24 16:44 Urine Color Yellow (Yellow) 11/27/24 17:09 Urine Appearance Clear (CLEAR) 11/27/24 17:09 Urine pH 5.5 (5-7) 11/27/24 17:09 Ur Specific [place] 1.033 (1.005-1.030) H 11/27/24 17:09 Urine Protein 1+ (Negative) A 11/27/24 17:09 Urine Glucose (UA) 3+ (Normal) H 11/27/24 17:09 Urine Ketones Trace (Negative) 11/27/24 17:09 Urine Blood Negative (Negative) 11/27/24 17:09 Urine Nitrate Negative (Negative) 11/27/24 17:09 Urine Bilirubin Negative (Negative) 11/27/24 17:09 Urine Urobilinogen 0.2 mg/dL (Negative) 11/27/24 17:09 Ur Leukocyte Esterase 1+ (Negative) A 11/27/24 17:09 Urine RBC 0-2 /hpf (0-2) 11/27/24 17:09 Urine WBC 51-100 /hpf (0-5) H 11/27/24 17:09 Ur Squamous Epith Cells 0-5 /hpf (0-5) 11/27/24 17:09 Amorphous Sediment Not Reportable 11/27/24 17:09 Urine Bacteria None seen /hpf (NONE) 11/27/24 17:09 Hyaline Casts 3.30 /lpf 11/27/24 17:09 Urine Yeast 1+ /hpf H 11/27/24 17:09 C. difficile (PCR) Positive (Negative) H 11/27/24 16:15 C.difficile Tox Confrm Positive (Negative) H 11/27/24 16:15 Vitals Last Vital Signs Temp 97.1 F L 12/03/24 07:51 Pulse 87 12/03/24 08:11 Resp 20 H 12/03/24 09:02 BP 113/81 12/03/24 09:02 Pulse Ox 90 12/03/24 08:11 O2 Del Method Nasal Cannula 12/03/24 08:11 O2 Flow Rate 3 12/03/24 08:11 FiO2 32 12/02/24 23:30 Discharge Plan Discharge Patient Disposition: Home Condition: Stable Prescriptions: New vancomycin 125 mg Capsule See Rx Instructions .ROUTE .COMPLEX Qty: 63 0RF Rx Instructions: 125 mcg 4 times daily x 4 days 125 mcg 2 times daily x 7 days 125 mcg once daily x 7days 125 mcg once every 3 days for 4 weeks Continued Jardiance 25 mg tablet 25 mg PO QAM Linzess 290 mcg capsule 290 mcg PO QAM montelukast [Singulair] 10 mg tablet 10 mg PO DAILY pantoprazole [Protonix] 40 mg tablet,delayed release (DR/EC) 40 mg PO BID ropinirole 1 mg tablet 2 mg PO BEDTIME meclizine [Dramamine (meclizine)] 25 mg tablet 25 mg PO TID PRN (Reason: motion sickness) Qty: 20 0RF ondansetron 4 mg tablet,disintegrating 4 mg PO Q6H PRN (Reason: nausea and vomiting) Qty: 12 0RF Rx Instructions: 340b please venlafaxine [Effexor XR] 150 mg capsule,extended release 24hr 150 mg PO QAM 30 Days Qty: 30 5RF metformin 1,000 mg 1,000 mg PO BID acetaminophen 500 mg Tablet 500 mg PO QID PRN (Reason: Pain) atorvastatin 40 mg 40 mg PO BEDTIME gabapentin 600 mg Tablet 800 mg PO TID Rx Instructions: Take 2 400mg capsules by mouth 3 times a day cetirizine 10 mg Tablet 10 mg PO DAILY baclofen 10 mg 5 mg PO BID docusate sodium 100 mg 100 mg PO BID epinephrine 0.3 mg 0.3 mg IM PRN PRN (Reason: anaphylaxis) venlafaxine 75 mg capsule,extended release 24hr 75 mg PO DAILY cholecalciferol (vitamin D3) 10 mcg (400 unit) Tablet See Rx Instructions .ROUTE .COMPLEX Rx Instructions: Patient does not know current dose. Patient states that she takes Vit D3 daily. insulin lispro [Humalog KwikPen Insulin] 100 unit/mL insulin pen See Rx Instructions .ROUTE .COMPLEX Rx Instructions: sliding scale dose subcutaneously tid with meals Mounjaro 15 mg/0.5 mL pen injector 15 mg SUBCUT Q7D Rx Instructions: Unknown doseage. hydroxyzine pamoate 50 mg capsule 50 mg PO BEDTIME nortriptyline 25 mg capsule 75 mg PO BEDTIME benztropine 1 mg tablet 1 mg PO BID aripiprazole 20 mg tablet 20 mg PO DAILY bumetanide 1 mg tablet 1 mg PO BID azelastine 137 mcg (0.1 %) Garfield,Non-Aerosol 2 spray INTRANASAL BID PRN (Reason: Congestion) Rx Instructions: administer into each nostril albuterol sulfate 90 mcg/actuation HFA aerosol inhaler 90 mcg INHALATION Q4H PRN (Reason: Shortness Of Breath Or Wheezing) famotidine 40 mg tablet 40 mg PO BEDTIME methenamine hippurate 1 gram tablet 1 g PO BID ferrous sulfate [FeroSul] 325 mg (65 mg iron) tablet 325 mg PO EVERY OTHER DAY Rx Instructions: Take with vitamin C mometasone 50 mcg/actuation spray,non-aerosol 50 mcg INTRANASAL DAILY Rx Instructions: Administer 2 sprays in each nostril daily estradiol 0.01 % (0.1 mg/gram) cream 1 g VAGINAL PRN Rx Instructions: See administration instructions diclofenac sodium 1 % gel 2 g TOPICAL QID Rx Instructions: apply to affected area fesoterodine 4 mg Tablet Extended Release 24 Hr 4 mg PO DAILY Emgality Pen 120 mg/mL pen injector 120 mg SUBCUT Q30D prucalopride [Motegrity] 2 mg tablet 2 mg PO DAILY losartan 50 mg tablet 50 mg PO DAILY Qty: 30 0RF insulin glargine [Lantus Solostar U-100 Insulin] 100 unit/mL (3 mL) insulin pen 45 unit SUBCUT BID Qty: 3 0RF Discontinued glimepiride 4 mg 4 mg PO BID Discharge Orders: Discharge Order (Routine); Ordered 12/03/24 Ordered By: Latonia Muir Referrals: Isabel Otto NP [Nurse Practitioner, Cardiology] - 12/14/24 3:00 pm Andrea Ren DO [Primary Care Provider] - 12/03/24 2:00 pm Discharge Diet: Cardiac and Diabetic Discharge Activity: Resume usual activity Patient Instructions: Clostridium Difficile, Vancomycin (By mouth), Low Fat Diet (DC), Abdominal Pain (ED), Heart Catheterization (DC), Opioid Safety, Post Angiogram Home Care Instructions Discharge Attestations Time Spent in Discharge Care*: greater than 30 min Status at Discharge: Cognitive status at discharge: cognitively intact , Behavioral status at discharge: cooperative , Quality Metrics Clinical Quality Measures [ No reported AMI, CVA or VTE this stay] Coding Level of Care Code Acute Code for Chg Fwd Diagnoses Clostridium difficile colitis A04.72 Uncontrolled type 2 diabetes mellitus with hyperglycemia E11.65 Glycemic state: with hyperglycemia Urinary tract infection N39.0
--- NOTE | 2024-12-03 11:15 | PC.NURSE ---
Patient is s/p [facility] with right radial access and TR band in place. Initiated TR band removal at 0830 removing 2ml of air every 10-15min until all air removed at 1030. Band removed at that time. There is no s/s of bleeding or hematoma formation observed. Instrution provided regarding site care with restrictions. Patient verbalized understanding. Denies pain to site.
--- NOTE | 2024-12-03 11:36 | PC.NURSE ---
patient discharged to home. Instruction regarding follow up needs, medications with changes and site care reinforcement. Patient and son verbalized complete understanding. Dressing to right wrist remains c,d,i without s/s of bleeding or hematoma formtion observed. Patient received medications to bed prior to discharge. Patient denies pain or needs. No distress observed. Patient taken by wheelchair to private vehicle. Son to provide transportation.
== END 2024-12-03 11:40 | disposition home or self-care (01) | DRG 372 ==
LOC: ER 18:52 → MEDSURG 19:52 → CSU 12-02 22:03
PROVIDERS: Internal Medicine Cardiovascular Disease; Admitting Provider Internal Medicine; Emergency Provider Emergency Medicine; PCP Family Medicine; Visit Provider Internal Medicine
PROC: B2111ZZ Fluoroscopy of Multiple Coronary Arteries using Low Osmolar Contrast (ICD-10-PCS; principal; 2024-12-03 07:00)
DX: A04.71 Enterocolitis due to Clostridium difficile, recurrent (principal); F33.2 Major depressive disorder, recurrent severe without psychotic features; N39.0 Urinary tract infection, site not specified; E11.65 Type 2 diabetes mellitus with hyperglycemia; E66.9 Obesity, unspecified; Z68.27 Body mass index [BMI] 27.0-27.9, adult; I50.9 Heart failure, unspecified; J44.9 Chronic obstructive pulmonary disease, unspecified; I27.20 Pulmonary hypertension, unspecified; F41.1 Generalized anxiety disorder; G47.33 Obstructive sleep apnea (adult) (pediatric); R07.9 Chest pain, unspecified; Z79.84 Long term (current) use of oral hypoglycemic drugs; Z79.4 Long term (current) use of insulin; Z79.85 Long-term (current) use of injectable non-insulin antidiabetic drugs; Z79.890 Hormone replacement therapy; F43.12 Post-traumatic stress disorder, chronic; Z99.89 Dependence on other enabling machines and devices; Z87.891 Personal history of nicotine dependence; Z82.49 Family history of ischemic heart disease and other diseases of the circulatory system
CPT/HCPCS: 36415; 36416; 51702; 71045; 71260; 74177; 78452; 80048; 80053; 81001; 82962; 83605; 83690; 83735; 84100; 84484; 85025; 86140; 87040; 87086; 87324; 87493; 93005; 93017; 93308; 93458; 94660; 94760; 96372; 96375; 99152; 99153; 99285; A9500; C1769; C1887; C1894; J0280; J0692; J0696; J1200; J1644; J1650; J1815; J2250; J2270; J2405; J2785; J3010; J3475; J3480; J3490; J7030; J9999; Q0163; Q9967

== ENCOUNTER 2025-01-16 14:44 | Emergency (ER) | payer OTHER, MEDICAID, SELFPAY ==
--- OUTSIDE RECORDS SUMMARY | 2003-06-16 19:00 | XMS_ITS | Continuity of Care Document ---
Author Name [facility] Address [address] [place] [address] Organization [facility] Care Team Providers Care Produce Specialist Name Role Phone [facility] Unavailable Unavailable Problems Problem Status Onset Date Problem Type Date of Resolution Comments Source Anxiety (finding) Active Condition Backache (finding) Active Condition Body mass index 40+ - severely obese (finding) Active Condition Depression - motion (qualifier value) Active Condition Female urinary stress incontinence (finding) Active Condition Gastroesophageal reflux disease (disorder) Active Condition History of - migraine (context-dependent category) Active Condition Hypertensive disorder, systemic arterial (disorder) Active Condition Irritable colon (disorder) Active Condition Large liver (disorder) Active Condition Obstructive sleep apnea syndrome (disorder) Active Condition Osteoarthritis (disorder) Active Condition Restless legs (disorder) Active Condition Diabetes mellitus type 2 (disorder) Active Condition Allergies, Adverse Reactions, Alerts Substance Category Reaction Severity Reaction type Status Date Reported Comments Source sulfa drugs<sup>1 </sup> Assertion Drug allergy Active shortness of breath/wheez ing -[facility] Unlisted Substance - See Comment<sup >2</sup> Assertion Allergy to substance Active Environment - shortness of breath/wheez ing [facility] Procedures Procedure Code Date Perfomer Comments Source Back surgery [facility] Chole[facility] [id number] [facility]
--- OUTSIDE RECORDS SUMMARY | 2023-09-30 09:15 | XMS_ITS | Continuity of Care Document ---
Author Organization [facility] Address [address] [id number] [address] Phone Care Team Providers Care Staff Sonographer Name Role Phone Morris SHYANNE Eleazar Unavailable [...] week 1250 MCG - Active Dexcom G7 Collector Of Aquarium Specimens - Active Dexcom G7 Sensor device - [...] Diagnoses Date Provider Providers Copied on Encounter [facility], [id number] [facility], [place], [place], [id number], [place] tel:[phone] [facility] Encounter for dental exam and cleaning w/o abnormal findings Arturo Bush. [address] [place], [address], [place]. tel:[phone] Referring Provider: Eleazar Morris, [address] [place], [address]. tel:[phone] [facility], [id number] [place], [place], [id number], [place] tel:[phone] [facility] Encounter for dental exam and cleaning w/o abnormal findings Arturo Bush. [address] [place], [address], [place]. tel:[phone] Referring Provider: Eleazar Morris, [address] [place], [address]. tel:[phone] [facility], [id number], [id number], [place] tel:[phone] [facility] Encounter for dental exam and cleaning w/o abnormal findings Arturo Bush. [address] [place], [address], [place]. tel:[phone] Referring Provider: Eleazar Morris, [address] [place], [address]. tel:[phone] [facility], [id number][facility] [place], [place], [id number], [place] tel:[phone] [facility] Encounter for dental exam and cleaning w/o abnormal findings Arturo Bush. [address] [place], [address], [place]. tel:[phone] Referring Provider: Eleazar Morris, [address] [place], [address]. tel:[phone] [facility], [id number], [id number], [place] tel:[phone] [facility] Encounter for dental exam and cleaning w/o abnormal findings Morris Eleazar. [address] [place], [address], [place]. tel:[phone] Referring Provider: Eleazar Morris, [address] [place], [address]. tel:[phone] [facility], [id number], [id number], [place] tel:[phone] [facility] No Information Arturo Bush. [address] [place], [address], [place]. tel:[phone] Referring Provider: Eleazar Morris, [address] [place], [address]. tel:[phone] [facility], [id number] [id number], [id number], [place] tel:[phone] [facility] Encounter for dental exam and cleaning w/o abnormal findings Arturo Bush. [address] [place], [address], [place]. tel:[phone] Referring Provider: Eleazar Morris, [address] [place], [address]. tel:[phone] [facility], [id number] [id number], [id number], [place] tel:[phone] [facility] Encounter for dental exam and cleaning w/o abnormal findings Arturo Bush. [address] [place], [address], [place]. tel:[phone] Referring Provider: Eleazar Morris, [address] [place], [address]. tel:[phone] Family History Family Member Type Diagnosis Age At Onset No Information Payers Payer name Insurance type Covered democrat ID Kelly ontiveros(marleni) [facility]anny [facility] Advantage CI [id number] Social History Type Description Quantity Date Captured [...]
[2024-11-06 13:58] VITALS: BP 135/72; BMI 48.0
--- OUTSIDE RECORDS SUMMARY | 2025-01-16 14:47 | XMS_ITS | Encounter Summary ---
Author Organization [facility] Address [address] [place] [address] Care Team Providers Care Technology Recruiter Name Role Phone Randy Ren MD Primary Care Provider [phone] Reason for Referral * Outpatient Services (Routine) - Closed Specialty Diagnoses / Procedures Referred By Contac t Referred To Contact Diagnoses Encounter for screening mammogram for malignant neoplasm of breast Procedures MAMMO DIGITAL SCREEN BILAT Randy Ren MD [address] [place] [address] Phone: tel: fax: Referral ID Status Reason Start Date Expiration Date Visits Re quested Visits Authorized [id number] Closed 08/18/2015 09/17/2016 1 1 ETES TERRITORY MANAGER Encounter Details Date Type Department Care Team (Latest Contact Info) Description 08/18/2015 Ancillary Orders [facility] Pre-Registration [place] CALL TO MAKE APPOINTMENT ONLY [address] [place] [address] Randy Ren MD [address] [place] [address] Encounter for screening mammogram for [...] on file Legal Sex Female 6:05 AM DIABETES TERRITORY MANAGER Gender Identity Not on file Sexual [...] of bilateral axillary findings with focused ultrasound. [id number] Narrative 09/09/2015 11:28 AM CDT BILATERAL SCREENING [...] by the Computer Aided Detection System (CAD), Hexaformer ImageChecker, Version 8.3. Randy Rne MD MAMMO ORDERABLES Final Result documented in this encounter Visit Diagnoses Diagnosis Encounter for screening mammogram for malignant neoplasm of breast- Primary Other screening mammogram Encounter for screening mammogram for malignant neoplasm of breast Other screening mammogram documented in this encounter Additional Health Concerns Infection Onset Date Last Indicated Resolved Time MRSA Comment:Resolved 07/30/2018, Infection Prevention Nares 12/15/15 12/16/2015 12/16/2015 07/30/2018 10:47 AM DIABETES TERRITORY MANAGER R/O COVID-19 03/01/2020 03/01/2020 03/03/2020 1:01 AM CDT documented as of this encounter Care Teams Technology Recruiter Relationship Specialty Start Date End Date Randy Ren MD [address], [place] [address] PCP - General Family Practice 01/25/15 documented as of this encounter
--- OUTSIDE RECORDS SUMMARY | 2025-01-16 14:47 | XMS_ITS | Encounter Summary ---
Author Organization [facility] Address [address] [place] [address] Care Team Providers Care Mechanical Engineering Director Name Role Phone Randy Ren MD Primary Care Provider [phone] Encounter Details Date Type Department Care Team (Latest Contact Info) Description 09/13/2015 Ancillary Orders [facility] [address] [facility] [address] [place] [address] Randy Ren MD [address] [place] [address] Inconclusive mammogram (Primary Dx) Social History Tobacco Use Types Packs/Day Years Used Date Smoking Tobacco: Former Cigarettes 0 09/09/1987 - 09/08/1988 Smokeless Tobacco: Never Alcohol Use Standard Drinks/Week Comments No 0 (1 standard drink = 0.6 oz pur e alcohol) Comments No Sex and Gender Information Value Date Recorded Sex Assigned at Not on file Legal Sex Female 6:05 AM ELEMENTARY TEACHER Gender Identity Not on file Sexual Orientation [...] Nares 12/15/15 12/16/2015 12/16/2015 07/30/2018 10:47 AM ELEMENTARY TEACHER R/O COVID-19 03/01/2020 03/01/2020 03/03/2020 1:01 AM CDT documented as of this encounter Care Teams Mechanical Engineering Director Relationship Specialty Start Date End Date Randy Ren MD [address] [place] [address] PCP - General Family Practice 01/25/15 documented as of this encounter
--- OUTSIDE RECORDS SUMMARY | 2025-01-16 14:47 | XMS_ITS | Encounter Summary ---
Author Organization [facility] Address [address] [place] [address] Care Team Providers Care Chief Lending Officer Name Role Phone Randy Ren MD Primary Care Provider [phone] Encounter Details Date Type Department Care Team (Latest Contact Info) Description 09/09/2015 Ancillary Orders [facility] [address] [facility] [address] [place] [address] Randy Ren MD [address] [place] [address] Inconclusive mammography (Primary Dx) Social History Tobacco Use Types Packs/Day Years Used Date Smoking Tobacco: Former Cigarettes 0 09/09/1987 - 09/08/1988 Smokeless Tobacco: Never Alcohol Use Standard Drinks/Week Comments No 0 (1 standard drink = 0.6 oz pur e alcohol) Comments No Sex and Gender Information Value Date Recorded Sex Assigned at Not on file Legal Sex Female 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
--- OUTSIDE RECORDS SUMMARY | 2025-01-16 14:48 | XMS_ITS | Encounter Summary ---
Author Organization [facility] Address [address] [place] [address] Care Team Providers Care Executive Coach Name Role Phone Randy Ren MD Primary Care Provider [phone] Encounter Details Date Type Department Care Team (Latest Contact Info) Description 11/25/1997 Outpatient Historical [facility] O[facility] R[place] [place] [phone] Dontrell Cedillo MD NO ADDRESS ON FILE Metrorrhagia (Primary Dx) Social History Tobacco Use Types Packs/Day Years Used Date Smoking Tobacco: Never Assessed Comments Unknown Sex and Gender Information Value Date Recorded Sex Assigned at Not on file Legal Sex Female 6:05 AM ETL DEVELOPER Gender Identity Not on file Sexual Orientation Not on file documented as of this encounter Plan of Treatment Not on file documented as of this encounter Visit Diagnoses Diagnosis Metrorrhagia- Primary documented in this encounter Additional Health Concerns Infection Onset Date Last Indicated Resolved Time MRSA Comment:Resolved 07/30/2018, Infection Prevention Nares 12/15/15 12/16/2015 12/16/2015 07/30/2018 10:47 AM ETL DEVELOPER R/O COVID-19 03/01/2020 03/01/2020 03/03/2020 1:01 AM CDT documented as of this encounter Care Teams Executive Coach Relationship Specialty Start Date End Date Randy Ren MD [address], [place] [address] PCP - General Family Practice 01/25/15 documented as of this encounter
--- OUTSIDE RECORDS SUMMARY | 2025-01-16 14:48 | XMS_ITS | Encounter Summary ---
Author Organization [facility] Address [address] [place] [address] Care Team Providers Care Shadowgraph Scale Operator Name Role Phone Randy Ren MD Primary Care Provider [phone] Encounter Details Date Type Department Care Team (Late st Contact Info) Description 04/20/2002 Emergency [facility] Emergency Department [address] [place] [address] Arley Peres MD NO ADDRESS ON FILE TIETZE'S DISEASE (Primary Dx) Social History Tobacco Use Types Packs/Day Years Used Date Smoking Tobacco: Never Assessed Comments Unknown Sex and Gender Information Value Date Recorded Sex Assigned at Not on file Legal Sex Female 6:05 AM CONSTRUCTION EQUIPMENT MECHANIC HELPER Gender Identity Not on file Sexual Orientation Not on file documented as of this encounter Plan of Treatment Not on file documented as of this encounter Visit Diagnoses Diagnosis Tietze's disease- Primary documented in this encounter Additional Health Concerns Infection Onset Date Last Indicated Resolved Time MRSA Comment:Resolved 07/30/2018, Infection Prevention Nares 12/15/15 12/16/2015 12/16/2015 07/30/2018 10:47 AM CONSTRUCTION EQUIPMENT MECHANIC HELPER R/O COVID-19 03/01/2020 03/01/2020 03/03/2020 1:01 AM CDT documented as of this encounter Care Teams Shadowgraph Scale Operator Relationship Specialty Start Date End Date Randy Ren MD [address], [place] [address] PCP - General Family Practice 01/25/15 documented as of this encounter
--- OUTSIDE RECORDS SUMMARY | 2025-01-16 14:48 | XMS_ITS | Encounter Summary ---
Author Organization [facility] Address [address] [place] [address] Care Team Providers Care Tie Layer Name Role Phone Randy Ren MD Primary Care Provider [phone] Encounter Details Date Type Department Care Team (Latest Contact Info) Description 12/29/2003 Outpatient Historical [facility] Medicine [place] [address] [phone] Gregoria Olivarez MD [address] [place] [address] URIN TRACT INFECTION NOS (Primary Dx) Social History Tobacco Use Types Packs/Day Years Used Date Smoking Tobacco: Never Assessed Comments Unknown Sex and Gender Information Value Date Recorded Sex Assigned at Not on file Legal Sex Female 6:05 AM CONCRETE BLOCK LAYER Gender Identity Not on file Sexual Orientation Not on file documented as of this encounter Plan of Treatment Not on file documented as of this encounter Visit Diagnoses Diagnosis Urinary tract infection, site not specified- Primary documented in this encounter Additional Health Concerns Infection Onset Date Last Indicated Resolved Time MRSA Comment:Resolved 07/30/2018, Infection Prevention Nares 12/15/15 12/16/2015 12/16/2015 07/30/2018 10:47 AM CONCRETE BLOCK LAYER R/O COVID-19 03/01/2020 03/01/2020 03/03/2020 1:01 AM CDT documented as of this encounter Care Teams Tie Layer Relationship Specialty Start Date End Date Randy Ren MD [address] [place] [address] PCP - General Family Practice 01/25/15 documented as of this encounter
--- OUTSIDE RECORDS SUMMARY | 2025-01-16 14:48 | XMS_ITS | Encounter Summary ---
Author Organization [facility] Address [address] [place] [address] Care Team Providers Care Tire Stripper Name Role Phone Randy Ren MD Primary Care Provider [phone] Reason for Referral * Outpatient Services (Routine) - Closed Specialty Diagnoses / Procedures Referred By Contac t Referred To Contact Diagnoses Irregular periods Procedures US PELVIS + TRANSVAG NON OB US PELVIS COMPLETE Cachorro Mackay MD Phone: tel: fax: [facility] Pre-Registration [place] CALL TO MAKE APPOINTMENT ONLY [address] [place] [address] Phone: tel: fax: Referral ID Status Reason Start Date Expiration Date V isits Requested Visits Authorized [id number] Closed [facility] TO SCHEDULE ([facility]) 11/10/2014 12/11/2015 1 1 Encounter Details Date Type Department Care Team (Late st Contact Info) Description 11/10/2014 Ancillary Orders [facility] Medicine [place] [address] [phone] Cachorro Mackay MD [address] [place] [phone] Irregular periods (Primary Dx) Social History Tobacco Use Types Packs/Day Years Used Date Smoking Tobacco: Former Cigarettes Q uit: 09/08/1988 Smokeless Tobacco: Never Alcohol Use Standard Drinks/Week Comments No 0 (1 standard drink = 0.6 oz pur e alcohol) Comments No Sex and Gender Information Value Date Recorded Sex Assigned at Not on file Legal Sex Female 6:05 AM GEOLOGY FACULTY MEMBER Gender Identity Not on file Sexual Orientation [...] Nares 12/15/15 12/16/2015 12/16/2015 07/30/2018 10:47 AM GEOLOGY FACULTY MEMBER R/O COVID-19 03/01/2020 03/01/2020 03/03/2020 1:01 AM CDT documented as of this encounter Care Teams Tire Stripper Relationship Specialty Start Date End Date Randy Ren MD [address] [place] [address] PCP - General Family Practice 01/25/15 documented as of this encounter
--- OUTSIDE RECORDS SUMMARY | 2025-01-16 14:48 | XMS_ITS | Encounter Summary ---
Author Organization [facility] Address [address] [place] [address] Care Team Providers Care Talent Development Analyst Name Role Phone Randy Ren MD Primary Care Provider [phone] Encounter Details Date Type Department Care Team (Latest Contact Info) Description 10/03/1998 Outpatient Historical [facility] Oral and Maxillo Surgery- [address] [place] [address] Jesus Ridley, SHYANNE NO ADDRESS ON FILE Dental caries (Primary Dx); Chronic gingivitis; Unspecified disorder of the teeth and supporting structures; Periapical abscess Social History Tobacco Use Types Packs/Day Years Used Date Smoking Tobacco: Never Assessed Comments Unknown Sex and Gender Information Value Date Recorded Sex Assigned at Not on file Legal Sex Female 6:05 AM DIRECTOR HEART Gender Identity Not on file Sexual Orientation [...] Nares 12/15/15 12/16/2015 12/16/2015 07/30/2018 10:47 AM DIRECTOR HEART R/O COVID-19 03/01/2020 03/01/2020 03/03/2020 1:01 AM CDT documented as of this encounter Care Teams Talent Development Analyst Relationship Specialty Start Date End Date Randy Ren MD [address] [place] [address] PCP - General Family Practice 01/25/15 documented as of this encounter
--- OUTSIDE RECORDS SUMMARY | 2025-01-16 14:48 | XMS_ITS | Encounter Summary ---
Author Organization [facility] Address [address] [place] [address] Care Team Providers Care Planting Machine Operator Name Role Phone Randy Ren MD Primary Care Provider [phone] Encounter Details Date Type Department Care Team (Latest Contact Info) Description 10/06/2003 Outpatient Historical [address] [phone] Alondra Mehta MD [address] [place] [address], [address] TRACHEA/BRONCHUS DIS NEC (Primary Dx); ACUTE BRONCHITIS Social History Tobacco Use Types Packs/Day Years Used Date Smoking Tobacco: Never Assessed Comments Unknown Sex and Gender Information Value Date Recorded Sex Assigned at Not on file Legal Sex Female 6:05 AM COMPUTER INSTALLER Gender Identity Not on file Sexual [...] Nares 12/15/15 12/16/2015 12/16/2015 07/30/2018 10:47 AM COMPUTER INSTALLER R/O COVID-19 03/01/2020 03/01/2020 03/03/2020 1:01 AM CDT documented as of this encounter Care Teams Planting Machine Operator Relationship Specialty Start Date End Date Randy Ren MD [address] [place] [address] PCP - General Family Practice 01/25/15 documented as of this encounter
--- OUTSIDE RECORDS SUMMARY | 2025-01-16 14:48 | XMS_ITS | Encounter Summary ---
Author Organization [facility] Address [address] [place] [address] Care Team Providers Care Cartridge Assembling Machine Adjuster Name Role Phone Randy Ren MD Primary Care Provider [phone] Encounter Details Date Type Department Care Team (Latest Contact Info) Description 01/03/2004 Outpatient Historical [facility] Medicine [place] [address] [phone] Gregoria Olivarez MD [address] [place] [address] BACKACHE NOS (Primary Dx); Sprain lumbar region Social History Tobacco Use Types Packs/Day Years Used Date Smoking Tobacco: Never Assessed Comments Unknown Sex and Gender Information Value Date Recorded Sex Assigned at Not on file Legal Sex Female 6:05 AM AUTOMATIC EQUIPMENT TECHNICIAN Gender Identity Not on file Sexual [...] Nares 12/15/15 12/16/2015 12/16/2015 07/30/2018 10:47 AM AUTOMATIC EQUIPMENT TECHNICIAN R/O COVID-19 03/01/2020 03/01/2020 03/03/2020 1:01 AM CDT documented as of this encounter Care Teams Cartridge Assembling Machine Adjuster Relationship Specialty Start Date End Date Randy Ren MD [address] [place] [address] PCP - General Family Practice 01/25/15 documented as of this encounter
--- OUTSIDE RECORDS SUMMARY | 2025-01-16 14:48 | XMS_ITS | Encounter Summary ---
Author Organization [facility] Address [address] [place] [address] Care Team Providers Care Coal Handling Supervisor Name Role Phone Randy Ren MD Primary Care Provider [phone] Encounter Details Date Type Department Care Team (Latest Contact Info) Description 05/29/2002 Outpatient Historical [facility] Imaging Services [address] [place] [address] Alondra Mehta MD [address] [place] [address], [address] ESOPHAGEAL ANOMALY NEC (Primary Dx) Social History Tobacco Use Types Packs/Day Years Used Date Smoking Tobacco: Never Assessed Comments Unknown Sex and Gender Information Value Date Recorded Sex Assigned at Not on file Legal Sex Female 6:05 AM PUTTYING AND CALKING SUPERVISOR Gender Identity Not on file Sexual Orientation Not on file documented as of this encounter Plan of Treatment Not on file documented as of this encounter Visit Diagnoses Diagnosis Other specified congenital anomaly of esophagus- Primary documented in this encounter Additional Health Concerns Infection Onset Date Last Indicated Resolved Time MRSA Comment:Resolved 07/30/2018, Infection Prevention Nares 12/15/15 12/16/2015 12/16/2015 07/30/2018 10:47 AM PUTTYING AND CALKING SUPERVISOR R/O COVID-19 03/01/2020 03/01/2020 03/03/2020 1:01 AM CDT documented as of this encounter Care Teams Coal Handling Supervisor Relationship Specialty Start Date End Date Randy Ren MD [address] [place] [address] PCP - General Family Practice 01/25/15 documented as of this encounter
--- OUTSIDE RECORDS SUMMARY | 2025-01-16 14:48 | XMS_ITS | Encounter Summary ---
Author Organization [facility] Address [address] [place] [address] Care Team Providers Care Hoisting Pile Driving Engineer Name Role Phone Randy Ren MD Primary Care Provider [phone] Encounter Details Date Type Department Care Team (Latest Contact Info) Description 06/11/2002 Outpatient Historical [address] [phone] Alondra Mehta MD [address] [place] [address], [address] ESOPHAGEAL REFLUX (Primary Dx); DYSPHAGIA Social History Tobacco Use Types Packs/Day Years Used Date Smoking Tobacco: Never Assessed Comments Unknown Sex and Gender Information Value Date Recorded Sex Assigned at Not on file Legal Sex Female 6:05 AM DENTAL TECHNICIAN Gender Identity Not on file Sexual Orientation Not on file documented as of this encounter Plan of Treatment Not on file documented as of this encounter Visit Diagnoses Diagnosis Esophageal reflux- Primary Dysphagia documented in this encounter Additional Health Concerns Infection Onset Date Last Indicated Resolved Time MRSA Comment:Resolved 07/30/2018, Infection Prevention Nares 12/15/15 12/16/2015 12/16/2015 07/30/2018 10:47 AM DENTAL TECHNICIAN R/O COVID-19 03/01/2020 03/01/2020 03/03/2020 1:01 AM CDT documented as of this encounter Care Teams Hoisting Pile Driving Engineer Relationship Specialty Start Date End Date Randy Ren MD [address] [place] [address] PCP - General Family Practice 01/25/15 documented as of this encounter
--- OUTSIDE RECORDS SUMMARY | 2025-01-16 14:48 | XMS_ITS | Encounter Summary ---
Author Organization [facility] Address [address] [place] [address] Care Team Providers Care Tip Out Worker Name Role Phone Randy Ren MD Primary Care Provider [phone] Encounter Details Date Type Department Care Team (Latest Contact Info) Description 06/18/[address] [facility] Medicine [place] [address], [place] [phone] Cachorro Mackay MD [address] [place] [phone] ESOPHAGEAL REFLUX (Primary Dx); UNSPECIFIED VIRAL INFECTION Social History Tobacco Use Types Packs/Day Years Used Date Smoking Tobacco: Never Assessed Comments Unknown Sex and Gender Information Value Date Recorded Sex Assigned at Not on file Legal Sex Female 6:05 AM COOK MANAGER Gender Identity Not on file Sexual [...] Nares 12/15/15 12/16/2015 12/16/2015 07/30/2018 10:47 AM COOK MANAGER R/O COVID-19 03/01/2020 03/01/2020 03/03/2020 1:01 AM CDT documented as of this encounter Care Teams Tip Out Worker Relationship Specialty Start Date End Date Randy Ren MD [address] [address] PCP - General Family Practice 01/25/15 documented as of this encounter
--- OUTSIDE RECORDS SUMMARY | 2025-01-16 14:48 | XMS_ITS | Encounter Summary ---
Author Organization [facility] Address [address] [place] [address] Care Team Providers Care Retirement Administrator Name Role Phone Randy Ren MD Primary Care Provider [phone] Encounter Details Date Type Department Care Team (Latest Contact Info) Description 01/12/1999 Outpatient Historical [facility] O[place] [address] [place] [phone] Dontrell Cedillo MD NO ADDRESS ON FILE Abdominal pain, unspecified site (Primary Dx); Abnormal weight gain Social History Tobacco Use Types Packs/Day Years Used Date Smoking Tobacco: Never Assessed Comments Unknown Sex and Gender Information Value Date Recorded Sex Assigned at Not on file Legal Sex Female 6:05 AM ORDER DISPATCHER CHIEF Gender Identity Not on file Sexual Orientation Not on file documented as of this encounter Plan of Treatment Not on file documented as of this encounter Visit Diagnoses Diagnosis Abdominal pain, unspecified site- Primary Abnormal weight gain documented in this encounter Additional Health Concerns Infection Onset Date Last Indicated Resolved Time MRSA Comment:Resolved 07/30/2018, Infection Prevention Nares 12/15/15 12/16/2015 12/16/2015 07/30/2018 10:47 AM ORDER DISPATCHER CHIEF R/O COVID-19 03/01/2020 03/01/2020 03/03/2020 1:01 AM CDT documented as of this encounter Care Teams Retirement Administrator Relationship Specialty Start Date End Date Randy Ren MD [address] [place] [address] PCP - General Family Practice 01/25/15 documented as of this encounter
--- OUTSIDE RECORDS SUMMARY | 2025-01-16 14:48 | XMS_ITS | Encounter Summary ---
Author Organization [facility] Address [address] [place] [address] Care Team Providers Care Special Delivery Mail Carrier Name Role Phone Randy Ren MD Primary Care Provider [phone] Encounter Details Date Type Department Care Team (Latest Contact Info) Description 11/12/2003 Outpatient Historical [facility] Medicine [place] [address] [place] [phone] Cachorro Macaky MD [address] [place] [phone] HYPOGLYCEMIA NOS (Primary Dx); POLYURIA Social History Tobacco Use Types Packs/Day Years Used Date Smoking Tobacco: Never Assessed Comments Unknown Sex and Gender Information Value Date Recorded Sex Assigned at Not on file Legal Sex Female 6:05 AM PLASTIC FIXTURE BUILDER Gender Identity Not on file Sexual Orientation Not on file documented as of this encounter Plan of Treatment Not on file documented as of this encounter Visit Diagnoses Diagnosis Hypoglycemia, unspecified- Primary Polyuria documented in this encounter Additional Health Concerns Infection Onset Date Last Indicated Resolved Time MRSA Comment:Resolved 07/30/2018, Infection Prevention Nares 12/15/15 12/16/2015 12/16/2015 07/30/2018 10:47 AM PLASTIC FIXTURE BUILDER R/O COVID-19 03/01/2020 03/01/2020 03/03/2020 1:01 AM CDT documented as of this encounter Care Teams Special Delivery Mail Carrier Relationship Specialty Start Date End Date Randy Ren MD [address] [place] [address] PCP - General Family Practice 01/25/15 documented as of this encounter
--- OUTSIDE RECORDS SUMMARY | 2025-01-16 14:48 | XMS_ITS | Encounter Summary ---
Author Organization [facility] Address [address] [place] [address] Care Team Providers Care Web Content Editor Name Role Phone Andrea Ren DO Primary Care Provider [phone] Encounter Details Date Type Department Care Team (Late Contact Info) Description 01/11/2025 Orders Only [facility] Endocrinology [facility] [address] [place] [address] Eve Cancino Social History Tobacco Use Types Packs/Day Years Used Date Smoking Tobacco: Former Cigarettes Q uit: 09/08/1988 Passive Smoke Exposure: Past Smokeless Tobacco: Never Alcohol Use Standard Drinks/Week Comments No 0 (1 standard drink = 0.6 oz pur e alcohol) Comments No Sex and Gender Information Value Date Recorded Sex Assigned at Not on file Legal Sex Female 2:33 AM ROUNDER HAND Gender Identity Not on file Sexual Orientation Not on file documented as of this encounter Plan of Treatment Upcoming Encounters Date Type Department Care Team (Late Contact Info) Description 01/30/2025 9:00 AM CDT Appointment [facility] [address] [place] [address] 02/03/2025 10:00 AM CDT Office Visit [facility] [address] [place] [phone] Kylie Villafuerte NP [address] [place] [phone] 02/26/2025 11:40 AM CDT Office Visit [facility] [place] [address] [place] [phone] MelissaAlexandria westbrookAndreaDO [address] [place] [address] 03/26/2025 11:10 AM CDT Appointment [facility] [address] [place] [address] Melissa Anand MD [address] [place] [address] 03/30/2025 11:00 AM CDT Office Visit [facility]3] Gastroenterology- Sarah [address] [place] [address] Corin De Leon, THERESA [address] [facility] [address] [place] [address] 06/28/2025 11:20 AM ROUNDER HAND Office Visit [facility] Endocrinology [facility] [address] [place] [address] Ora De Anda, ELSA [address] [facility] [address] [place] [address] 07/12/2025 10:45 AM ROUNDER HAND Office Visit [facility]3] Sleep Center [address] [facility] [address] [place] [address] Dorys Cano, JUDICIAL CLERK [address] [facility] [address] [place] [address] 08/25/2025 8:00 AM CDT Hospital Encounter [facility] [address] [place] [address] Aayush Jc MD [address] [address] 08/25/2025 8:00 AM CDT - 08/25/2025 8:20 AM CDT Surgery [facility] [address] [place] [address] Aayush Jc MD [address] [place] [address] COLONOSCOPY 11/11/2025 10:50 AM CDT Office Visit [facility]3] Gopal Da Silva [address] [place] [address] Melissa Anand MD [address] [place] [address] 01/04/2026 10:00 AM CDT Office Visit [facility] [address] [facility] [address] [place] [address] Cristóbal Rush MD [address] [facility] [address] [place] [address] Gavi Ballard, JUDICIAL CLERK [address] [facility] [address] [place] [address] Scheduled Procedures Name Priority Associated Diagnoses Date/Ti me COLONOSCOPY Iron deficiency anemia, unspecified iron deficiency anemia type Chronic idiopathic constipation Colon cancer screening 08/25/2025 8:00 AM CDT documented as of this encounter Visit Diagnoses Not on filedocumented in this encounter Additional Health Concerns Assessment Noted Time PHQ-9 Depression Total Score: 6 12/23/19 25 1:00 PM CDT documented as of this encounter Care Teams Web Content Editor Relationship Specialty Start Date End Date Andera Ren DO [address], [place] [address] PCP - General Family Practice 08/03/21 documented as of this encounter
--- OUTSIDE RECORDS SUMMARY | 2025-01-16 14:48 | XMS_ITS | Encounter Summary ---
Author Organization [facility] Address [address] [place] [address] Care Team Providers Care Park Maintenance Technician Name Role Phone Randy Ren MD Primary Care Provider [phone] Encounter Details Date Type Department Care Team (Latest Contact Info) Description 09/06/2003 Outpatient Historical [facility] Medicine [place] [address] [place] [phone] Cachorro Mackay MD [address] [place] [phone] ALLERGIC RHINITIS NOS (Primary Dx); ACUTE FRONTAL SINUSITIS Social History Tobacco Use Types Packs/Day Years Used Date Smoking Tobacco: Never Assessed Comments Unknown Sex and Gender Information Value Date Recorded Sex Assigned at Not on file Legal Sex Female 6:05 AM ENCAPSULATOR Gender Identity Not on file Sexual Orientation Not on file documented as of this encounter Plan of Treatment Not on file documented as of this encounter Visit Diagnoses Diagnosis Allergic rhinitis, cause unspecified- Primary Acute frontal sinusitis documented in this encounter Additional Health Concerns Infection Onset Date Last Indicated Resolved Time MRSA Comment:Resolved 07/30/2018, Infection Prevention Nares 12/15/15 12/16/2015 12/16/2015 07/30/2018 10:47 AM ENCAPSULATOR R/O COVID-19 03/01/2020 03/01/2020 03/03/2020 1:01 AM CDT documented as of this encounter Care Teams Park Maintenance Technician Relationship Specialty Start Date End Date Randy Ren MD [address] [place] [address] PCP - General Family Practice 01/25/15 documented as of this encounter
--- OUTSIDE RECORDS SUMMARY | 2025-01-16 14:48 | XMS_ITS | Encounter Summary ---
Author Organization [facility] Address [address] [place] [address] Care Team Providers Care Funeral Car Chauffeur Name Role Phone Randy Ren MD Primary Care Provider [phone] Encounter Details Date Type Department Care Team (Latest Contact Info) Description 01/31/2001 Outpatient Historical [facility] OBIVANIAN-[place] Rekha [address] [place] [phone] Dontrell Cedillo MD NO ADDRESS ON FILE Irregular menstruation (Primary Dx); Dysmenorrhea Social History Tobacco Use Types Packs/Day Years Used Date Smoking Tobacco: Never Assessed Comments Unknown Sex and Gender Information Value Date Recorded Sex Assigned at Not on file Legal Sex Female 6:05 AM NUTRITIONAL ASSISTANT Gender Identity Not on file Sexual Orientation Not on file documented as of this encounter Plan of Treatment Not on file documented as of this encounter Visit Diagnoses Diagnosis Irregular menstruation- Primary Irregular menstrual cycle Dysmenorrhea documented in this encounter Additional Health Concerns Infection Onset Date Last Indicated Resolved Time MRSA Comment:Resolved 07/30/2018, Infection Prevention Nares 12/15/15 12/16/2015 12/16/2015 07/30/2018 10:47 AM NUTRITIONAL ASSISTANT R/O COVID-19 03/01/2020 03/01/2020 03/03/2020 1:01 AM CDT documented as of this encounter Care Teams Funeral Car Chauffeur Relationship Specialty Start Date End Date Randy Ren MD [address] [place] [address] PCP - General Family Practice 01/25/15 documented as of this encounter
--- OUTSIDE RECORDS SUMMARY | 2025-01-16 14:48 | XMS_ITS | Encounter Summary ---
Author Organization [facility] Address [address] [facility] Attn: Epic [place] [address] Care Team Providers Care Muffler Tender Name Role Phone Randy Ren MD Primary Care Provider [phone] Encounter Details Date Type Department Care Team (Late st Contact Info) Description 11/18/2001 Outpatient Historical Cachroro Mackay MD [address] [place] [phone] Social History Tobacco Use Types Packs/Day Years Used Date Smoking Tobacco: Never Assessed Comments Unknown Sex and Gender Information Value Date Recorded Sex Assigned at Not on file Legal Sex Female 6:05 AM ELECTRIC SHIPYARD OPERATOR Gender Identity Not on file Sexual Orientation Not on file documented as of this encounter Plan of Treatment Not on file documented as of this encounter Visit Diagnoses Not on filedocumented in this encounter Additional Health Concerns Infection Onset Date Last Indicated Resolved Time MRSA Comment:Resolved 07/30/2018, Infection Prevention Nares 12/15/15 12/16/2015 12/16/2015 07/30/2018 10:47 AM ELECTRIC SHIPYARD OPERATOR R/O COVID-19 03/01/2020 03/01/2020 03/03/2020 1:01 AM CDT documented as of this encounter Care Teams Muffler Tender Relationship Specialty Start Date End Date Randy Rne MD [address] [place] [address] PCP - General Family Practice 01/25/15 documented as of this encounter
--- OUTSIDE RECORDS SUMMARY | 2025-01-16 14:48 | XMS_ITS | Encounter Summary ---
Author Organization [facility] Address [address] [place] [address] Care Team Providers Care Sales Correspondence Clerk Name Role Phone Randy Ren MD Primary Care Provider [phone] Encounter Details Date Type Department Care Team (Latest Contact Info) Description 02/04/2004 Outpatient Historical [facility] [address] [place] [address] Gregoria Olivarez MD [address] [place] [address] LUMBAGO (Primary Dx) Social History Tobacco Use Types Packs/Day Years Used Date Smoking Tobacco: Never Assessed Comments Unknown Sex and Gender Information Value Date Recorded Sex Assigned at Not on file Legal Sex Female 6:05 AM EDGE INKER HEELS Gender Identity Not on file Sexual Orientation Not on file documented as of this encounter Plan of Treatment Not on file documented as of this encounter Visit Diagnoses Diagnosis Lumbago- Primary documented in this encounter Additional Health Concerns Infection Onset Date Last Indicated Resolved Time MRSA Comment:Resolved 07/30/2018, Infection Prevention Nares 12/15/15 12/16/2015 12/16/2015 07/30/2018 10:47 AM EDGE INKER HEELS R/O COVID-19 03/01/2020 03/01/2020 03/03/2020 1:01 AM CDT documented as of this encounter Care Teams Sales Correspondence Clerk Relationship Specialty Start Date End Date Randy Ren MD [address] [place] [address] PCP - General Family Practice 01/25/15 documented as of this encounter
--- OUTSIDE RECORDS SUMMARY | 2025-01-16 14:48 | XMS_ITS | Encounter Summary ---
Author Organization [facility] Address [address] [place] [address] Care Team Providers Care Temple Marker Name Role Phone Randy Ren MD Primary Care Provider [phone] Encounter Details Date Type Department Care Team [...] on file Legal Sex Female 6:05 AM RADIOLOGICAL TECHNOLOGIST Gender Identity Not on file Sexual Orientation [...] touch to a localized area. ? YES OLOGICAL TECHNOLOGIST documented in this encounter Plan of Treatment Not on file documented as of this encounter Visit Diagnoses Not on filedocumented in this encounter Additional Health Concerns Infection Onset Date Last Indicated Resolved Time MRSA Comment:Resolved 07/30/2018, Infection Prevention Nares 12/15/15 12/16/2015 12/16/2015 07/30/2018 10:47 AM RADIOLOGICAL TECHNOLOGIST R/O COVID-19 03/01/2020 03/01/2020 03/03/2020 1:01 AM CDT documented as of this encounter Care Teams Temple Marker Relationship Specialty Start Date End Date Randy Ren MD [address] [address] PCP - General Family Practice 01/25/15 documented as of this encounter
--- OUTSIDE RECORDS SUMMARY | 2025-01-16 14:48 | XMS_ITS | Encounter Summary ---
Author Organization [facility] Address [address] [place] [address] Care Team Providers Care [facility] Sales Name Role Phone Randy Ren MD Primary Care Provider [phone] Encounter Details Date Type Department Care Team (Latest Contact Info) Description 08/25/2002 Outpatient Historical [facility] Gastroenterology- [address] [place] [phone] Nehemiah Rodríguez MD [address] [facility] [address] [place] [address] ESOPHAGEAL REFLUX (Primary Dx) Social History Tobacco Use Types Packs/Day Years Used Date Smoking Tobacco: Never Assessed Comments Unknown Sex and Gender Information Value Date Recorded Sex Assigned at Not on file Legal Sex Female 6:05 AM SUPERINTENDENT OPERATING Gender Identity Not on file Sexual Orientation Not on file documented as of this encounter Plan of Treatment Not on file documented as of this encounter Visit Diagnoses Diagnosis Esophageal reflux- Primary documented in this encounter Additional Health Concerns Infection Onset Date Last Indicated Resolved Time MRSA Comment:Resolved 07/30/2018, Infection Prevention Nares 12/15/15 12/16/2015 12/16/2015 07/30/2018 10:47 AM SUPERINTENDENT OPERATING R/O COVID-19 03/01/2020 03/01/2020 03/03/2020 1:01 AM CDT documented as of this encounter Care Teams Medical [facility] Sales Relationship Specialty Start Date End Date Randy Ren MD [address] [place] [address] PCP - General Family Practice 01/25/15 documented as of this encounter
--- OUTSIDE RECORDS SUMMARY | 2025-01-16 14:48 | XMS_ITS | Encounter Summary ---
Author Organization [facility] Address [address] [place] [address] Care Team Providers Care Lead Rider Name Role Phone Randy Ren MD Primary Care Provider [phone] Encounter Details Date Type Department Care Team (Latest Contact Info) Description 08/10/1998 Outpatient Historical [facility] Oral and Maxillo Surgery- [address] [place] [address] Jesus Ridley, SHYANNE NO ADDRESS ON FILE Dental caries (Primary Dx); Chronic gingivitis; Retained dental root; Periapical abscess Social History Tobacco Use Types Packs/Day Years Used Date Smoking Tobacco: Never Assessed Comments Unknown Sex and Gender Information Value Date Recorded Sex Assigned at Not on file Legal Sex Female 6:05 AM JAVA WEB APPLICATION DEVELOPER Gender Identity Not on file Sexual [...] Nares 12/15/15 12/16/2015 12/16/2015 07/30/2018 10:47 AM JAVA WEB APPLICATION DEVELOPER R/O COVID-19 03/01/2020 03/01/2020 03/03/2020 1:01 AM CDT documented as of this encounter Care Teams Lead Rider Relationship Specialty Start Date End Date Randy Ren MD [address] [place] [address] PCP - General Family Practice 01/25/15 documented as of this encounter
--- OUTSIDE RECORDS SUMMARY | 2025-01-16 14:48 | XMS_ITS | Encounter Summary ---
Author Organization [facility] Address [address] [place] [address] Care Team Providers Care Hardboard Factory Worker Name Role Phone Randy Ren MD Primary Care Provider [phone] Reason for Referral * Outpatient Services (Routine) - Closed Specialty Diagnoses / Procedures Referred By Contac t Referred To Contact Diagnoses Inconclusive mammogram Procedures MAMMO BREAST US BILAT LTD Randy Ren MD [address] [place] [address] Phone: tel: fax: Referral ID Status Reason Start Date Expiration Date Visits Re quested Visits Authorized [id number] Closed 09/22/2015 10/22/2016 1 1 Encounter Details Date Type Department Care Team (Latest Contact Info) Description 09/22/2015 Ancillary Orders [facility] Breast [place] [address] [facility] [address] [place] [address] Randy Ren MD [address] [place] [address] Inconclusive mammogram (Primary Dx) Social History Tobacco Use Types Packs/Day Years Used Date Smoking Tobacco: Former Cigarettes 0 09/09/1987 - 09/08/1988 Smokeless Tobacco: Never Alcohol Use Standard Drinks/Week Comments No 0 (1 standard drink = 0.6 oz pur e alcohol) Comments No Sex and Gender Information Value Date Recorded Sex Assigned at Not on file Legal Sex Female 6:05 AM PARTS TECHNICIAN Gender Identity Not on file Sexual [...] Patient received the result and recommendation letter. [id number] Narrative 09/22/2015 4:42 PM CDT REASON FOR [...] Nares 12/15/15 12/16/2015 12/16/2015 07/30/2018 10:47 AM PARTS TECHNICIAN R/O COVID-19 03/01/2020 03/01/2020 03/03/2020 1:01 AM CDT documented as of this encounter Care Teams Hardboard Factory Worker Relationship Specialty Start Date End Date Randy Ren MD [address] [place] [address] PCP - General Family Practice 01/25/15 documented as of this encounter
--- OUTSIDE RECORDS SUMMARY | 2025-01-16 14:48 | XMS_ITS | Encounter Summary ---
Author Organization [facility] Address [address] [place] [address] Care Team Providers Care Vibrating Screed Operator Name Role Phone Randy Ren MD Primary Care Provider [phone] Reason for Referral * MRI (Routine) - Closed Specialty Diagnoses / Procedures Referred By Liz herbert Referred To Contact Diagnoses Rotator cuff tendonitis, left Procedures MRI SHOULDER WO CONTRAST LEFT Lamin Roca NP [address] [place] [address] Phone: tel: fax: [facility] Pre-Registration [place] CALL TO MAKE APPOINTMENT ONLY [address] [place] [address] Phone: tel: fax: Referral ID Status Reason Start Date Expiration Date V isits Requested Visits Authorized [id number] Closed [facility] TO SCHEDULE ([facility]) 04/23/2018 05/23/2018 1 1 ERENTIAL SPECIALIST Encounter Details Date Type Department Care Team (Latest Contact Info) Description 04/22/2018 Ancillary Orders [facility] Pre-Registration [place] CALL TO MAKE APPOINTMENT ONLY [address] [place] [address] Lamin Roca NP [address] [place] [address] Rotator cuff tendonitis, left Social History Tobacco Use Types Packs/Day Years Used Date Smoking Tobacco: Former Cigarettes 0 09/09/1987 - 09/08/1988 Smokeless Tobacco: Never Alcohol Use Standard Drinks/Week Comments No 0 (1 standard drink = 0.6 oz pur e alcohol) Comments No Sex and Gender Information Value Date Recorded Sex Assigned at Not on file Legal Sex Female 6:05 AM DIFFERENTIAL SPECIALIST Gender Identity Not on file Sexual Orientation Not on file Occupation Industry Job Start Date Job End Date Not on file Not on file Not on file Not on file documented as of this encounter Plan of Treatment Not on file documented as of this encounter Results * MRI SHOULDER WO CONTRAST LEFT (05/01/2018 2:16 PM DIFFERENTIAL SPECIALIST) Anatomical Region Laterality Modality Upper Extremity Magnetic Resonan ce 05/01/2018 2:16 PM DIFFERENTIAL SPECIALIST Impressions 05/13/2018 4:01 PM DIFFERENTIAL SPECIALIST IMPRESSION: Please see below. Exam: MRI SHOULDER [...] rotator cuff or definite labral pathology identified. [id number] Narrative Procedure Note Maria A Fitzpatrick MD [...] rotator cuff or definite labral pathology identified. [id number] Lamin Roca NP MR ORDERABLES Final Resu lt documented in this encounter Visit Diagnoses Diagnosis Rotator cuff tendonitis, left Rotator cuff tendonitis, left documented in this encounter Additional Health Concerns Infection Onset Date Last Indicated Resolved Time MRSA Comment:Resolved 07/30/2018, Infection Prevention Nares 12/15/15 12/16/2015 12/16/2015 07/30/2018 10:47 AM DIFFERENTIAL SPECIALIST R/O COVID-19 03/01/2020 03/01/2020 03/03/2020 1:01 AM CDT Assessment Noted Time PHQ-9 Depression Total Score: 6 08/24/19 17 8:00 AM DIFFERENTIAL SPECIALIST documented as of this encounter Care Teams Vibrating Screed Operator Relationship Specialty Start Date End Date Randy Ren MD [address] [place] [address] PCP - General Family Practice 01/25/15 documented as of this encounter
--- OUTSIDE RECORDS SUMMARY | 2025-01-16 14:48 | XMS_ITS | Encounter Summary ---
Author Organization [facility] Address [address] [place] [address] Care Team Providers Care Manager Switch Name Role Phone Randy Ren MD Primary Care Provider [phone] Encounter Details Date Type Department Care Team (Latest Contact Info) Description 05/06/2002 Outpatient Historical [address] [phone] Alondra Mehta MD [address] [place] [address] ESOPHAGEAL REFLUX (Primary Dx); ABNORMAL WEIGHT GAIN Social History Tobacco Use Types Packs/Day Years Used Date Smoking Tobacco: Never Assessed Comments Unknown Sex and Gender Information Value Date Recorded Sex Assigned at Not on file Legal Sex Female 6:05 AM ANNEALER Gender Identity Not on file Sexual Orientation Not on file documented as of this encounter Plan of Treatment Not on file documented as of this encounter Visit Diagnoses Diagnosis Esophageal reflux- Primary Abnormal weight gain documented in this encounter Additional Health Concerns Infection Onset Date Last Indicated Resolved Time MRSA Comment:Resolved 07/30/2018, Infection Prevention Nares 12/15/15 12/16/2015 12/16/2015 07/30/2018 10:47 AM ANNEALER R/O COVID-19 03/01/2020 03/01/2020 03/03/2020 1:01 AM CDT documented as of this encounter Care Teams Manager Switch Relationship Specialty Start Date End Date Randy Ren MD [address] [place] [address] PCP - General Family Practice 01/25/15 documented as of this encounter
--- OUTSIDE RECORDS SUMMARY | 2025-01-16 14:48 | XMS_ITS | Encounter Summary ---
Author Organization [facility] Address [address] [place] [address] Care Team Providers Care Juvenile Probation Officer Name Role Phone Randy Ren MD Primary Care Provider Reason for Referral * Radiology Services (Routine) - Closed Specialty Diagnoses / Procedures Referred By Contac t Referred To Contact Radiology Diagnoses Leg pain, bilateral Procedures US ANKLE PRESSURE INDEX US ANKLE BRACHIAL INDEX W STRESS Zainab James FNP [address] [place] [address] Phone: tel: fax: [facility] Non-Invasive Procedure [address] [place] [address] Phone: tel: fax: Referral ID Status Reason Start Date Expiration Date Visits Re quested Visits Authorized [id number] Closed 10/19/2020 11/19/2021 1 1 Encounter Details Date Type Department Care Team (Late st Contact Info) Description 12/08/2020 Ancillary Orders [facility] [address] [place] [address] Zainab James FNP [address] [place] [address] Leg pain, bilateral Social History Tobacco Use Types Packs/Day Years Used Date Smoking Tobacco: Former Cigarettes 1 2 0 09/08/1986 - 09/08/1988 Smokeless Tobacco: Never Alcohol Use Standard Drinks/Week Comments No 0 (1 standard drink = 0.6 oz pur e alcohol) Comments No Sex and Gender Information Value Date Recorded Sex Assigned at Not on file Legal Sex Female 6:05 AM MIX CHEMIST Gender Identity Not on file Sexual Orientation [...] AM CDT Narrative 12/08/2020 1:08 PM CDT [facility] Cardiovascular Services Noninvasive Vascular Laboratory [address] [place] [address] Noninvasive Vascular Lab RYAN with PVR Arterial Physiologic Evaluation Patient: Maya Figueroa Study ID: US RYAN Gender: F : 1970 Age: 50 Room: Height: Weight: BSA: Pt status: Outpatient Study Date: 12/08/2020 Study Time: 08:29:00 AM BSA: Ordering: Zainab James Interpreting:Arley Acosta MD Sampler Tester: Mariela Kramer RVT Indications: LEG PAIN. History: [...] dampened - L 5th toe Mildly dampened [facility] is accredited with the Intersocietal Commission for the Accreditation of Vascular Laboratories (ICAVL) Prepared and Electronically Authenticated Arley Acosta MD Confirmed 12/08/2020 13:08 Procedure Note Arley Acosta MD - 12/08/2020 [facility] Cardiovascular Services Noninvasive Vascular Laboratory [address] [place] [address] Noninvasive Vascular Lab RYAN with PVR Arterial Physiologic Evaluation Patient: Maya Figueroa Study ID: US RYAN Gender: F : 1970 Age: 50 Room: Height: Weight: BSA: Pt status: Outpatient Study Date: 12/08/2020 Study Time: 08:29:00 AM BSA: Ordering: Zainab James Interpreting:Arley Acosta MD Sampler Tester: Mariela Kramer RVT Indications: LEG PAIN. History: [...] dampened - L 5th toe Mildly dampened [facility] is accredited with the Intersocietal Commission for the Accreditation of Vascular Laboratories (ICAVL) Prepared and Electronically Authenticated Arley Acosta MD Confirmed 12/08/2020 13:08 us Zainab Jinny James [facility] US ORDERABLES Final Result documented in this encounter Visit Diagnoses Diagnosis Leg pain, bilateral Pain in limb Leg pain, bilateral Pain in limb documented in this encounter Additional Health Concerns Assessment Noted Time PHQ-9 Depression Total Score: 3 08/20/19 19 2:00 PM MIX CHEMIST documented as of this encounter Care Teams Juvenile Probation Officer Relationship Specialty Start Date End Date Randy Ren MD [address] [place] [address] PCP - General Family Practice 01/25/15 documented as of this encounter
--- OUTSIDE RECORDS SUMMARY | 2025-01-16 14:48 | XMS_ITS | Encounter Summary ---
Author Organization [facility] Address [address] [place] [address] Care Team Providers Care Scale Expert Name Role Phone Randy Ren MD Primary Care Provider [phone] Encounter Details Date Type Department Care Team (Latest Contact Info) Description 10/10/1998 Outpatient Historical [facility] Oral and Maxillo Surgery- [address] [place] [address] Zhou Camarena, PhD NO ADDRESS ON FILE Follow-up examination following surgery (Primary Dx) Social History Tobacco Use Types Packs/Day Years Used Date Smoking Tobacco: Never Assessed Comments Unknown Sex and Gender Information Value Date Recorded Sex Assigned at Not on file Legal Sex Female 6:05 AM TELEPHONE MAINTAINER Gender Identity Not on file Sexual Orientation Not on file documented as of this encounter Plan of Treatment Not on file documented as of this encounter Visit Diagnoses Diagnosis Follow-up examination following surgery- Primary documented in this encounter Additional Health Concerns Infection Onset Date Last Indicated Resolved Time MRSA Comment:Resolved 07/30/2018, Infection Prevention Nares 12/15/15 12/16/2015 12/16/2015 07/30/2018 10:47 AM TELEPHONE MAINTAINER R/O COVID-19 03/01/2020 03/01/2020 03/03/2020 1:01 AM CDT documented as of this encounter Care Teams Scale Expert Relationship Specialty Start Date End Date Randy Ren MD [address] [place] [address] PCP - General Family Practice 01/25/15 documented as of this encounter
--- OUTSIDE RECORDS SUMMARY | 2025-01-16 14:48 | XMS_ITS | Clinical Summary ---
Author Organization [facility] Address [address] [place] [address] Care Team Providers Care Gift Wrapper Name Role Phone Randy Ren MD Primary Care Provider [phone] Allergies Active Allergy Reactions Criticality Noted Date [...] PAIN 25 Tablet 3 12/17/19 Active Insulin [place], Disposable, (TechLITE Pen Needle) 31 gauge x [...] hyperglycemia, with long-term current use of insulin ([facility]) Inject 1.8 mg by subcutaneous injection daily. [...] 10/04/19 Active fluticasone propionate (FLONASE) 50 mcg/spray [place], Suspension nasal inhalerIndicatio ns:Seasonal allergic rhinitis due [...] capsule TAKE 2 CAPSULES BY MOUTH IN IT SUPPORT MANAGER 60 Capsule 2 12/13/19 21 Active Active [...] on file Legal Sex Female 6:05 AM GEOTHERMAL OPERATIONS ENGINEER Gender Identity Not on file Sexual [...] CDT Oxygen Saturation 97% 04/26/2020 2:39 PM GEOTHERMAL OPERATIONS ENGINEER Inhaled Oxygen Concentration - - Weight 147.4 [...] 11/06/2018, Additional history exists INFLUENZA VACCINE (#1) 2025 0, 03/27/2019, 05/02/2018, Additional history exists DTAP/TDAP/TD VACCINES (2 - T d or Tdap) 04/29/2025 04/29/2015 DIABETES ANNUAL RETINAL EXAM 05/06/2025, 05/02/2023, 05/01/2022, Additional history exists Preventative Visit-Managed Medicaid 07/03/2025 07/02/2024, 09/04/2022, 09/01/2020, Additional history exists COLORECTAL SCREENING 06/16/2034 06/16/2024, 11/21/2018, 11/21/2018, Additional history exists Colorectal Cancer Screening 06/16/2034 Medical Devices Implanted Type Area Director Of Medical Services Device Identifier Shelf Expiration Date Model / Serial / Lot Hemostatic Gelfoam Spng 12-7mm [id number] - Csc - Sna Implanted:Qty: 1 on 01/03/2016 by Thiago Teran MD at [facility] Hemostatic Right: Spine Lumbar PFIZER- PHARM 04/16/2018 [id number] / NA / [id number] Hemostatic Gelfoam Powder 1gm [id number] - Sna Implanted:Qty: 1 on 01/03/2016 by Thiago Teran MD at [facility] Hemostatic Right: Spine Lumbar PFIZER- PHARM 06/16/2018 [id number] / NA / [id number] Procedures Procedure Name Priority Date/Time Associated Diagnosis Comments HEMOGLOBIN A1C Routine 12/21/2020 12:03 PM CDT Type 2 diabetes mellitus treated with insulin ([facility]) MICROALBUMIN/CREATIN INE RATIO, RANDOM UR Routine 09/01/2020 1:00 PM CDT Type 2 diabetes mellitus treated with insulin ([facility]) Stage 3a chronic kidney disease ([facility]) Hypovitaminosis D LIPID PANEL Routine 04/18/2020 MAMMO 3D JAYLON SCREEN BILAT W OR WO CAD Routine 01/28/2020 12:14 PM CDT Encounter for screening mammogram for malignant neoplasm of breast COLONOSCOPY REPORT 11/21/2018 9: 21 AM CDT POC OCCULT BLOOD UP TO 3 CARDS Routine 07/31/2017 11:51 AM GEOTHERMAL OPERATIONS ENGINEER Screening for colon cancer from Last 3 Months or Most Recently Relevant to Health Maintenance Results * (ABNORMAL) HEMOGLOBIN A1C (12/21/2020 12:03 PM CDT) HEMOGLOBIN A1C 7.7(H) <5.7 % of total Hgb Straight Up [place] Comment: For someone without known diabetes, a [...] children. FASTING:NO FASTING: NO Test Performed at: [facility] [address] [place] [address] Antwan Guadalupe D.O., MPH Blood 12/21/2020 12:0 3 PM CDT 12/21/2020 12:05 PM CDT us Ora HUNTER CHEMISTRY ORDERABLES Final Re sult [facility] [address] [place] [address] * (ABNORMAL) MICROALBUMIN/CREATININE RATIO, RANDOM UR (09/01/2020 1:00 PM CDT) Pathologist [facility] MICROALBUMIN, URINE 6.2 No Reference Range mg/dL 09/01/2020 2:14 PM CDT [facility] CREATININE, URINE 236.1(H) 29.0 - 226.0 mg/dL 09/01/2020 2:14 PM CDT [facility] Comment:Reference Range vari es with fluid intake and diet. MICROALBUMIN/ CREAT RATIO, UR 26.3(H) <25.0 mg/g 09/01/2020 2:14 PM CDT [facility] Urine URINE SPECIMEN OBTAINED BY CLEAN CATCH PROCEDURE / Unknown Collection / Unknown 09/01/2020 1:00 PM CDT 09/01/2020 1:11 PM CDT Narrative [facility] SERVICESGLENN MORENO - 09/01/2020 2:14 PM CDT Condition Microalbumin/Creat ratio Normal Males <17 Normal Females <25 Microalbuminuria Males 17-299 Microalbuminuria Females 25-299 Overt proteinuria >=300 Ora HUNTER URINE ORDERABLES Final Result [facility] CLIA# [id number] [address] [place] [address] * LIPID PANEL (04/18/2020) ABSTRACTED CHOLESTEROL 122 EXTERNAL LAB ABSTRACTED TRIGLYCERIDE 142 EXTERNAL LAB ABSTRACTED HDL 35 EXTERNAL LAB ABSTRACTED LDL CALCULATED 59 EXTERNAL LAB CHOLESTEROL EXTERNAL LAB TRIGLYCERIDE EXTERNAL LAB HDL EXTERNAL LAB LDL CALCULATED EXTERNAL LAB Blood 04/18/2020 Abstract Spg Provider CHEMISTRY ORDERABLES Final Result Performing Organization Address [facility] Co de Phone Number EXTERNAL LAB * [...] Rodríguez MD - 11/21/2018 9:20 AM CDT [facility] GI Patient Name: Maya Figueroa Procedure Date: [...] 9:08:01 AM Scope Out: 9:18:45 AM [address] [place] us Nehemiah Rodríguez MD GI PROCEDURE ORDERABLES Fin al Result * (ABNORMAL) POC OCCULT BLOOD UP TO 3 CARDS (07/31/2017 11:51 AM GEOTHERMAL OPERATIONS ENGINEER) OCCULT BLOOD 1 CARD POC Negative Negative [facility] OCCULT BLOOD 2 CARD POC Negative Negative [facility] OCCULT BLOOD 3 CARD POC Invalid Result(A) Negative [facility] Comment:no specimen on card INTERNAL KIT QC Pass Pass [facility] CARD LOT NUMBER POC [id number] [facility] CARD EXPIRATION DATE POC 02-15-2018 [facility] DEVELOPER LOT NUMBER POC [id number] [facility] DEVELOPER EXPIRATION DATE POC 12-16-2019 [facility] Stool STOOL SPECIMEN / Unknown 07/31/2017 11:51 AM GEOTHERMAL OPERATIONS ENGINEER us Danita Smith WASH OIL COOLER OPERATOR POINT OF CARE TESTING Final R esult Performing Organization Address City/State/[facility] Co de Phone Number [facility] CLIA# [id number] [address] [place] [address] from Last 3 Months or Most Recently Relevant to Health Maintenance Insurance [place] RX INFOCROSSING Medicaid RX OMER PLANS (INTERNAL) [facility] Internal Plans MEDICAID [place] Advance Directives For more information, please contact: [phone] * Full Code (Latest Code Status on [...] 7:17 PM 01/04/2016 5:57 PM Care Teams Gift Wrapper Relationship Specialty Start Date End Date Randy Ren MD [address] [place] [address] PCP - General Family Practice 01/25/15
--- OUTSIDE RECORDS SUMMARY | 2025-01-16 14:48 | XMS_ITS | Encounter Summary ---
Author Organization [facility] Address [address] [place] [address] Care Team Providers Care Quality Process Auditor Name Role Phone Randy Ren MD Primary Care Provider [phone] Encounter Details Date Type Department Care Team (Late st Contact Info) Description 10/09/2003 Emergency [facility] Emergency Department [address] [place] [address] Xavier Sarkar, Arley Wyatt DO NO ADDRESS ON FILE BRONCHITIS NOS (Primary Dx) Social History Tobacco Use Types Packs/Day Years Used Date Smoking Tobacco: Never Assessed Comments Unknown Sex and Gender Information Value Date Recorded Sex Assigned at Not on file Legal Sex Female 6:05 AM PICKING TABLE WORKER Gender Identity Not on file Sexual [...] Nares 12/15/15 12/16/2015 12/16/2015 07/30/2018 10:47 AM PICKING TABLE WORKER R/O COVID-19 03/01/2020 03/01/2020 03/03/2020 1:01 AM CDT documented as of this encounter Care Teams Quality Process Auditor Relationship Specialty Start Date End Date Randy Ren MD [address], [place] [address] PCP - General Family Practice 01/25/15 documented as of this encounter
--- OUTSIDE RECORDS SUMMARY | 2025-01-16 14:48 | XMS_ITS | Encounter Summary ---
Author Organization [facility] Address [address] [place] [address] Care Team Providers Care Newspaper Writer Name Role Phone Randy Ren MD Primary Care Provider [phone] Encounter Details Date Type Department Care Team (Latest Contact Info) Description 11/18/2001 Outpatient Historical [facility] Medicine [place] [address] [phone] Gregoria Olivarez MD [address] [place] [address] IMPACTED CERUMEN (Primary Dx); VAGINITIS NOS; ABNORMAL WEIGHT GAIN; OTHER MALAISE AND FATIGUE Social History Tobacco Use Types Packs/Day Years Used Date Smoking Tobacco: Never Assessed Comments Unknown Sex and Gender Information Value Date Recorded Sex Assigned at Not on file Legal Sex Female 6:05 AM FOOD CART ATTENDANT Gender Identity Not on file Sexual Orientation [...] Nares 12/15/15 12/16/2015 12/16/2015 07/30/2018 10:47 AM FOOD CART ATTENDANT R/O COVID-19 03/01/2020 03/01/2020 03/03/2020 1:01 AM CDT documented as of this encounter Care Teams Newspaper Writer Relationship Specialty Start Date End Date Randy Ren MD [address] [place] [address] PCP - General Family Practice 01/25/15 documented as of this encounter
--- OUTSIDE RECORDS SUMMARY | 2025-01-16 14:48 | XMS_ITS | Encounter Summary ---
Author Organization [facility] Address [address] [place] [address] Care Team Providers Care Clipper Operator Name Role Phone Andrea Ren Primary Care Provider [phone] Reason for Visit * Reason Comments Med Refill Encounter Details Date Type Department Care Team ([facility] Contact Info) Description 01/10/2025 Refill [facility] Endocrinology [facility] [address] [facility] [address] [place] [address] Ora De Anda PA [address] [address] Type 2 diabetes mellitus with hyperglycemia, with long-term current use of insulin ([facility]) Social History Tobacco Use Types Packs/Day Years Used Date Smoking Tobacco: Former Cigarettes Q uit: 09/08/1988 Passive Smoke Exposure: Past Smokeless Tobacco: Never Alcohol Use Standard Drinks/Week Comments No 0 (1 standard drink = 0.6 oz pur e alcohol) Comments No Sex and Gender Information Value Date Recorded Sex Assigned at Not on file Legal Sex Female 2:33 AM TILE CONDUIT LAYER Gender Identity Not on file Sexual Orientation Not on file documented as of this encounter Plan of Treatment Upcoming Encounters Date Type Department Care Team ([facility] Contact Info) Description 01/30/2025 9:00 AM CDT Appointment [facility] Pulmonary Function [place] [address] 02/03/2025 10:00 AM CDT Office Visit [facility] Urology [address] [place] [address] Kylie Villafuerte NP [address] [place] [address] 02/26/2025 11:40 AM CDT Office Visit [facility] Family Medicine [place] [address] [address] Andrea Ren DO [address] [place] [address] 03/26/2025 11:10 AM CDT Appointment [facility] [address] [place] [address] Melissa Anand MD [address] [place] [address] 03/30/2025 11:00 AM CDT Office Visit [facility] Gastroenterology- [place] [address] [place] [address] Corin De Leon NP [address] [facility] [address] [place] [address] 06/28/2025 11:20 AM TILE CONDUIT LAYER Office Visit [facility] Endocrinology [facility] [address] [place] [address] Ora De Anda PA [address] [place] [address] 07/12/2025 10:45 AM TILE CONDUIT LAYER Office Visit [facility] Sleep Center [address] [facility] [address] [place] [address] Dorys Cano, [facility] [address] [place] [address] 08/25/2025 8:00 AM CDT Hospital Encounter [facility] Endoscopy [address] [place] [address] Aayush Jc MD [address] [address] 08/25/2025 8:00 AM CDT - 08/25/2025 8:20 AM CDT Surgery [facility] Endoscopy [address] [place] [address] Aayush Jc MD [address] [address] COLONOSCOPY 11/11/2025 10:50 AM CDT Office Visit [facility] Gopal James Rekha [address] [place] [address] Melissa Anand MD [address] [place] [address] 01/04/2026 10:00 AM CDT Office Visit [facility] Heart [facility] [address] [place] [address] Cristóbal Rush MD [address] [place] [address] Gavi Ballard, [facility] [address] [place] [address] Scheduled Procedures Name Priority Associated Diagnoses Date/Ti me COLONOSCOPY Iron deficiency anemia, unspecified iron deficiency anemia type Chronic idiopathic constipation Colon cancer screening 08/25/2025 8:00 AM CDT documented as of this encounter Visit Diagnoses Diagnosis Type 2 diabetes mellitus with hyperglycemia, with long-term current use of insulin ([facility]) documented in this encounter Additional Health Concerns Assessment Noted Time PHQ-9 Depression Total Score: 6 12/23/19 25 1:00 PM CDT documented as of this encounter Care Teams Clipper Operator Relationship Specialty Start Date End Date Andrea Ren DO [address], [place] [address] PCP - General Family Practice 08/03/21 documented as of this encounter
--- OUTSIDE RECORDS SUMMARY | 2025-01-16 14:48 | XMS_ITS | Encounter Summary ---
Author Organization [facility] Address [address] [place] [address] Care Team Providers Care Driving Instructor Name Role Phone Randy Ren MD Primary Care Provider [phone] Encounter Details Date Type Department Care Team (Latest Contact Info) Description 01/31/2004 Outpatient Historical [facility] [place] [address] [phone] Gregoria Olivarez MD [address] [place] [address] LUMBAGO (Primary Dx); HYPERTENSION NOS Social History Tobacco Use Types Packs/Day Years Used Date Smoking Tobacco: Never Assessed Comments Unknown Sex and Gender Information Value Date Recorded Sex Assigned at Not on file Legal Sex Female 6:05 AM TOLL BRIDGE ATTENDANT Gender Identity Not on file Sexual Orientation Not on file documented as of this encounter Plan of Treatment Not on file documented as of this encounter Visit Diagnoses Diagnosis Lumbago- Primary Unspecified essential hypertension documented in this encounter Additional Health Concerns Infection Onset Date Last Indicated Resolved Time MRSA Comment:Resolved 07/30/2018, Infection Prevention Nares 12/15/15 12/16/2015 12/16/2015 07/30/2018 10:47 AM TOLL BRIDGE ATTENDANT R/O COVID-19 03/01/2020 03/01/2020 03/03/2020 1:01 AM CDT documented as of this encounter Care Teams Driving Instructor Relationship Specialty Start Date End Date Randy Ren MD [address] [place] [address] PCP - General Family Practice 01/25/15 documented as of this encounter
--- OUTSIDE RECORDS SUMMARY | 2025-01-16 14:48 | XMS_ITS | Encounter Summary ---
Author Organization [facility] Address [address] [place] [address] Care Team Providers Care Tinner Automatic Name Role Phone Randy Ren MD Primary Care Provider [phone] Encounter Details Date Type Department Care Team (Latest Contact Info) Description 11/01/2003 Outpatient Historical [address] [phone] Alondra Mehta MD [address] [place] [address], [address] DERMATITIS NOS (Primary Dx); URTICARIA NOS Social History Tobacco Use Types Packs/Day Years Used Date Smoking Tobacco: Never Assessed Comments Unknown Sex and Gender Information Value Date Recorded Sex Assigned at Not on file Legal Sex Female 6:05 AM ACID WASHER OPERATOR Gender Identity Not on file Sexual [...] Nares 12/15/15 12/16/2015 12/16/2015 07/30/2018 10:47 AM ACID WASHER OPERATOR R/O COVID-19 03/01/2020 03/01/2020 03/03/2020 1:01 AM CDT documented as of this encounter Care Teams Tinner Automatic Relationship Specialty Start Date End Date Randy Ren MD [address] [place] [address] PCP - General Family Practice 01/25/15 documented as of this encounter
--- OUTSIDE RECORDS SUMMARY | 2025-01-16 14:48 | XMS_ITS | Encounter Summary ---
Author Organization [facility] Address [address] [place] [address] Care Team Providers Care Retail Field Merchandiser Name Role Phone Randy Ren MD Primary Care Provider [phone] Encounter Details Date Type Department Care Team (Latest Contact Info) Description 08/13/2001 Outpatient Historical [address] [phone] Alondra Mehta MD [address] [place] [address], [address] ESOPHAGEAL REFLUX (Primary Dx) Social History Tobacco Use Types Packs/Day Years Used Date Smoking Tobacco: Never Assessed Comments Unknown Sex and Gender Information Value Date Recorded Sex Assigned at Not on file Legal Sex Female 6:05 AM FAMILY LAW ATTORNEY Gender Identity Not on file Sexual Orientation Not on file documented as of this encounter Plan of Treatment Not on file documented as of this encounter Visit Diagnoses Diagnosis Esophageal reflux- Primary documented in this encounter Additional Health Concerns Infection Onset Date Last Indicated Resolved Time MRSA Comment:Resolved 07/30/2018, Infection Prevention Nares 12/15/15 12/16/2015 12/16/2015 07/30/2018 10:47 AM FAMILY LAW ATTORNEY R/O COVID-19 03/01/2020 03/01/2020 03/03/2020 1:01 AM CDT documented as of this encounter Care Teams Retail Field Merchandiser Relationship Specialty Start Date End Date Randy Ren MD [address] [place] [address] PCP - General Family Practice 01/25/15 documented as of this encounter
--- OUTSIDE RECORDS SUMMARY | 2025-01-16 14:48 | XMS_ITS | Encounter Summary ---
Author Organization [facility] Address [address] [place] [address] Care Team Providers Care Fur Ironer Name Role Phone Randy Ren MD Primary Care Provider [phone] Encounter Details Date Type Department Care Team (Latest Contact Info) Description 10/04/2003 Outpatient Historical [address] [phone] Alondra Mehta MD [address] [place] [address], [id number] ACUTE FRONTAL SINUSITIS (Primary Dx); ACUTE BRONCHITIS Social History Tobacco Use Types Packs/Day Years Used Date Smoking Tobacco: Never Assessed Comments Unknown Sex and Gender Information Value Date Recorded Sex Assigned at Not on file Legal Sex Female 6:05 AM HOTEL SERVICE MANAGER Gender Identity Not on file Sexual Orientation Not on file documented as of this encounter Plan of Treatment Not on file documented as of this encounter Visit Diagnoses Diagnosis Acute frontal sinusitis- Primary Acute bronchitis documented in this encounter Additional Health Concerns Infection Onset Date Last Indicated Resolved Time MRSA Comment:Resolved 07/30/2018, Infection Prevention Nares 12/15/15 12/16/2015 12/16/2015 07/30/2018 10:47 AM HOTEL SERVICE MANAGER R/O COVID-19 03/01/2020 03/01/2020 03/03/2020 1:01 AM CDT documented as of this encounter Care Teams Fur Ironer Relationship Specialty Start Date End Date Randy Ren MD [address] [place] [address] PCP - General Family Practice 01/25/15 documented as of this encounter
--- OUTSIDE RECORDS SUMMARY | 2025-01-16 14:48 | XMS_ITS | Encounter Summary ---
Author Organization [facility] Address [address] [place] [address] Care Team Providers Care Fruit Receiver Name Role Phone Randy Ren MD Primary Care Provider [phone] Encounter Details Date Type Department Care Team (Latest Contact Info) Description 10/08/2003 Outpatient Historical [address] [phone] Alondra Mehta MD [address] [place] [address], [phone] TRACHEA/BRONCHUS DIS NEC (Primary Dx); URGE INCONTINENCE; PNEUMONIA, ORGANISM NOS Social History Tobacco Use Types Packs/Day Years Used Date Smoking Tobacco: Never Assessed Comments Unknown Sex and Gender Information Value Date Recorded Sex Assigned at Not on file Legal Sex Female 6:05 AM SUPERVISOR AGRICULTURAL EDUCATION Gender Identity Not on file Sexual Orientation [...] Nares 12/15/15 12/16/2015 12/16/2015 07/30/2018 10:47 AM SUPERVISOR AGRICULTURAL EDUCATION R/O COVID-19 03/01/2020 03/01/2020 03/03/2020 1:01 AM CDT documented as of this encounter Care Teams Fruit Receiver Relationship Specialty Start Date End Date Randy Ren MD [address], [place] [address] PCP - General Family Practice 01/25/15 documented as of this encounter
--- OUTSIDE RECORDS SUMMARY | 2025-01-16 14:48 | XMS_ITS | Encounter Summary ---
Author Organization [facility] Address [address] [place] [address] Care Team Providers Care Spraying Machine Operator Name Role Phone Randy Ren MD Primary Care Provider [phone] Encounter Details Date Type Department Care Team (Latest Contact Info) Description 02/08/2004 Outpatient Historical [facility] Jacob Preble [address] [place] [address] Gregoria Olivarez MD [address] [place] [address] LUMBAGO (Primary Dx) Social History Tobacco Use Types Packs/Day Years Used Date Smoking Tobacco: Never Assessed Comments Unknown Sex and Gender Information Value Date Recorded Sex Assigned at Not on file Legal Sex Female 6:05 AM JUNIOR ACCOUNT EXECUTIVE Gender Identity Not on file Sexual Orientation Not on file documented as of this encounter Plan of Treatment Not on file documented as of this encounter Visit Diagnoses Diagnosis Lumbago- Primary documented in this encounter Additional Health Concerns Infection Onset Date Last Indicated Resolved Time MRSA Comment:Resolved 07/30/2018, Infection Prevention Nares 12/15/15 12/16/2015 12/16/2015 07/30/2018 10:47 AM JUNIOR ACCOUNT EXECUTIVE R/O COVID-19 03/01/2020 03/01/2020 03/03/2020 1:01 AM CDT documented as of this encounter Care Teams Spraying Machine Operator Relationship Specialty Start Date End Date Randy Ren MD [address] [place] [address] PCP - General Family Practice 01/25/15 documented as of this encounter
--- OUTSIDE RECORDS SUMMARY | 2025-01-16 14:48 | XMS_ITS | Encounter Summary ---
Author Organization [facility] Address [address] [place] [address] Care Team Providers Care Fresh Foods Technician Name Role Phone Randy Ren MD Primary Care Provider [phone] Encounter Details Date Type Department Care Team [...] on file Legal Sex Female 6:05 AM CHASER APPRENTICE Gender Identity Not on file Sexual Orientation [...] Nares 12/15/15 12/16/2015 12/16/2015 07/30/2018 10:47 AM CHASER APPRENTICE R/O COVID-19 03/01/2020 03/01/2020 03/03/2020 1:01 AM CDT documented as of this encounter Care Teams Fresh Foods Technician Relationship Specialty Start Date End Date Randy Ren MD [address] [place] [address] PCP - General Family Practice 01/25/15 documented as of this encounter
--- OUTSIDE RECORDS SUMMARY | 2025-01-16 14:48 | XMS_ITS | Encounter Summary ---
Author Organization [facility] Address [address] [place] [address] Care Team Providers Care Guardian Ad Litem Name Role Phone Randy Ren MD Primary Care Provider [phone] Encounter Details Date Type Department Care Team (Latest Contact Info) Description 10/13/2003 Outpatient Historical [address] [phone] Alondra Mehta MD [address] [place] [address], [address] HEMATURIA (Primary Dx); PNEUMONIA, ORGANISM NOS; HYPOGLYCEMIA NOS Social History Tobacco Use Types Packs/Day Years Used Date Smoking Tobacco: Never Assessed Comments Unknown Sex and Gender Information Value Date Recorded Sex Assigned at Not on file Legal Sex Female 6:05 AM GOAT FARMER Gender Identity Not on file Sexual [...] Nares 12/15/15 12/16/2015 12/16/2015 07/30/2018 10:47 AM GOAT FARMER R/O COVID-19 03/01/2020 03/01/2020 03/03/2020 1:01 AM CDT documented as of this encounter Care Teams Guardian Ad Litem Relationship Specialty Start Date End Date Randy Ren MD [address], [place] [address] PCP - General Family Practice 01/25/15 documented as of this encounter
--- OUTSIDE RECORDS SUMMARY | 2025-01-16 14:48 | XMS_ITS | Encounter Summary ---
Author Organization [facility] Address [address] [place] [address] Care Team Providers Care Piece Dye Worker Name Role Phone Andrea Ren Primary Care Provider [phone] Encounter Details Date Type Department Care Team (Late Contact Info) Description 12/25/2024 Results Follow-Up [facility] Family Medicine [place] [address] [address] Danita Smith, MICROSOFT DYNAMICS DEVELOPER [address] [place] [address] TSH REFLEXIVE, VITAMIN D 25 HYDROXY, CBC WITH DIFFERENTIAL, Additional followed-up results: 2 Social History Tobacco Use Types Packs/Day Years Used Date Smoking Tobacco: Former Cigarettes Q uit: 09/08/1988 Passive Smoke Exposure: Past Smokeless Tobacco: Never Alcohol Use Standard Drinks/Week Comments No 0 (1 standard drink = 0.6 oz pur e alcohol) Comments No Sex and Gender Information Value Date Recorded Sex Assigned at Not on file Legal Sex Female 2:33 AM CASHIERS BUSSERS FOOD RUNNERS Gender Identity Not on file Sexual Orientation Not on file documented as of this encounter Plan of Treatment Upcoming Encounters Date Type Department Care Team (Late Contact Info) Description 01/30/2025 9:00 AM CDT Appointment [facility] Pulmonary Function [place] [address] 02/03/2025 10:00 AM CDT Office Visit [facility] Urology [address] [place] [phone] Kylie Villafuerte NP [address] [place] [address] 02/26/2025 11:40 AM CDT Office Visit [facility] Medicine [place] [address] [address] Andrea Ren DO [address] [place] [address] 03/26/2025 11:10 AM CDT Appointment [facility] [address] [place] [address] Melissa Anand MD [address] [place] [address] 03/30/2025 11:00 AM CDT Office Visit [facility] Gastroenterology- [place] [address] [place] [address] Corin De Leon NP [address] [facility] [address] [place] [address] 06/28/2025 11:20 AM CASHIERS BUSSERS FOOD RUNNERS Office Visit [facility] Endocrinology [facility] [address] [place] [address] Ora De Anda PA [address] [place] [address] 07/12/2025 10:45 AM CASHIERS BUSSERS FOOD RUNNERS Office Visit [facility] [address] [place] [address] Dorys Cano, [facility] [address] [place] [address] 08/25/2025 8:00 AM CDT Hospital Encounter [facility] Endoscopy [address] [place] [address] Aayush Jc MD [address] [address] 08/25/2025 8:00 AM CDT - 08/25/2025 8:20 AM CDT Surgery [facility] Endoscopy [address] [place] [address] Aayush Jc MD [address] [address] COLONOSCOPY 11/11/2025 10:50 AM CDT Office Visit [facility] Gopal James [place] [address] [place] [address] Melissa Anand MD [address] [facility] [address] [place] [address] 01/04/2026 10:00 AM CDT Office Visit [facility] [address] [place] [address] Cristóbal Rush MD [address] [place] [address] Gavi Ballard, [facility] [address] [place] [address] Scheduled Procedures Name Priority Associated Diagnoses [...] documented as of this encounter Care Teams Piece Dye Worker Relationship Specialty Start Date End Date Andrea Ren DO [address] [place] [address] PCP - General Family Practice 08/03/21 documented as of this encounter
--- OUTSIDE RECORDS SUMMARY | 2025-01-16 14:48 | XMS_ITS | Encounter Summary ---
Author Organization [facility] Address [address] [place] [address] Care Team Providers Care Web Designer Developer Name Role Phone Randy Ren MD Primary Care Provider [phone] Encounter Details Date Type Department Care Team (Latest Contact Info) Description 12/08/2003 Outpatient Historical [facility] Medicine [place] [address] [phone] Gregoria Olivarez MD [address] [place] [address] CRAMP IN LIMB (Primary Dx); HYPOTHYROIDISM NOS; NEUROTIC DEPRESSION Social History Tobacco Use Types Packs/Day Years Used Date Smoking Tobacco: Never Assessed Comments Unknown Sex and Gender Information Value Date Recorded Sex Assigned at Not on file Legal Sex Female 6:05 AM KNOTTING MACHINE OPERATOR PORTABLE Gender Identity Not on file Sexual Orientation Not on file documented as of this encounter Plan of Treatment Not on file documented as of this encounter Visit Diagnoses Diagnosis Cramp of limb- Primary Unspecified hypothyroidism Dysthymic disorder documented in this encounter Additional Health Concerns Infection Onset Date Last Indicated Resolved Time MRSA Comment:Resolved 07/30/2018, Infection Prevention Nares 12/15/15 12/16/2015 12/16/2015 07/30/2018 10:47 AM KNOTTING MACHINE OPERATOR PORTABLE R/O COVID-19 03/01/2020 03/01/2020 03/03/2020 1:01 AM CDT documented as of this encounter Care Teams Web Designer Developer Relationship Specialty Start Date End Date Randy Ren MD [address] [place] [address] PCP - General Family Practice 01/25/15 documented as of this encounter
--- OUTSIDE RECORDS SUMMARY | 2025-01-16 14:49 | XMS_ITS | Encounter Summary ---
Author Organization [facility] Address [address] [place] [address] Care Team Providers Care Adult Manager Name Role Phone Randy Ren MD Primary Care Provider [phone] Reason for Referral * Outpatient Services (Routine) - Closed Specialty Diagnoses / Procedures Referred By Contac t Referred To Contact Radiology Diagnoses Visit for screening mammogram Procedures MAMMO SCREEN BILAT W OR WO CAD Randy Ren MD [address] [place] [address] Phone: tel: fax: [facility] Breast [place] [address] [facility] [address] [place] [address] Phone: tel: fax: Referral ID Status Reason Start Date Expiration Date Visits Re quested Visits Authorized [id number] Closed 09/18/2016 10/19/2017 1 1 Encounter Details Date Type Department Care Team (Latest Contact Info) Description 09/18/2016 Ancillary Orders [facility] Pre-Registration [place] CALL TO MAKE APPOINTMENT ONLY [address] [place] [address] Randy Ren MD [address] [place] [address] Visit for screening mammogram Social History Tobacco Use Types Packs/Day Years Used Date Smoking Tobacco: Former Cigarettes 0 09/09/1987 - 09/08/1988 Smokeless Tobacco: Never Alcohol Use Standard Drinks/Week Comments No 0 (1 standard drink = 0.6 oz pur e alcohol) Comments No Sex and Gender Information Value Date Recorded Sex Assigned at Not on file Legal Sex Female 6:05 AM HOUSE MANAGER Gender Identity Not on file Sexual [...] Nares 12/15/15 12/16/2015 12/16/2015 07/30/2018 10:47 AM HOUSE MANAGER R/O COVID-19 03/01/2020 03/01/2020 03/03/2020 1:01 AM CDT Assessment Noted Time PHQ-9 Depression Total Score: 6 08/24/19 17 8:00 AM HOUSE MANAGER documented as of this encounter Care Teams Adult Manager Relationship Specialty Start Date End Date Randy Ren MD [address] [place] [address] PCP - General Family Practice 01/25/15 documented as of this encounter
--- OUTSIDE RECORDS SUMMARY | 2025-01-16 14:49 | XMS_ITS | Encounter Summary ---
Author Organization [facility] Address [address] [place] [address] Care Team Providers Care Bark Peeler Name Role Phone Randy Ren MD Primary Care Provider Encounter Details Date Type Department Care Team (Latest Contact Info) Description 04/24/2004 Outpatient Historical [facility] Gastroenterology- [address] [place] [address] Nehemiah Rodríguez MD [address] [facility] [address] [place] [address] GI SYSTEM SYMPTOMS OTHER (Primary Dx) Social History Tobacco Use Types Packs/Day Years Used Date Smoking Tobacco: Never Assessed Comments Unknown Sex and Gender Information Value Date Recorded Sex Assigned at Not on file Legal Sex Female 6:05 AM REGISTERED NURSE BONE MARROW TRANSPLANT Gender Identity Not on file Sexual Orientation [...] Nares 12/15/15 12/16/2015 12/16/2015 07/30/2018 10:47 AM REGISTERED NURSE BONE MARROW TRANSPLANT R/O COVID-19 03/01/2020 03/01/2020 03/03/2020 1:01 AM CDT documented as of this encounter Care Teams Bark Peeler Relationship Specialty Start Date End Date Randy Ren MD [address], [place] [address] PCP - General Family Practice 01/25/15 documented as of this encounter
--- OUTSIDE RECORDS SUMMARY | 2025-01-16 14:49 | XMS_ITS | Encounter Summary ---
Author Organization [facility] Address [address] [place] [address] Care Team Providers Care Second Shift Supervisor Name Role Phone Randy Ren MD Primary Care Provider [phone] Encounter Details Date Type Department Care Team (Late st Contact Info) Description 07/29/2006 Emergency [facility] Emergency Department [address] [place] [address] Luis Manuel Shelton MD [address] [address] Abdominal Pain, Unspecified Site (Primary Dx) Social History Tobacco Use Types Packs/Day Years Used Date Smoking Tobacco: Never Assessed Comments Unknown Sex and Gender Information Value Date Recorded Sex Assigned at Not on file Legal Sex Female 6:05 AM NEUROLOGY TECH Gender Identity Not on file Sexual Orientation Not on file documented as of this encounter Plan of Treatment Not on file documented as of this encounter Procedures Procedure Name Priority Date/Time Associated Diagnosis Comments CBC WITH DIFFERENTIAL Routine 07/29/2006 3:04 PM NEUROLOGY TECH LIPASE Routine 07/29/2006 3:04 PM NEUROLOGY TECH COMPREHENSIVE METABOLIC PANEL Routine 07/29/2006 3:04 PM NEUROLOGY TECH URINALYSIS MICROSCOPY ONLY Routine 07/29/2006 1:24 PM NEUROLOGY TECH URINALYSIS W/REFLEX MICROSCOPIC Routine 07/29/2006 1:24 PM NEUROLOGY TECH documented in this encounter Results * LIPASE (07/29/2006 3:04 PM NEUROLOGY TECH) LIPASE 26 6 - 51 U/L INTERFACE SYSTEM Comment: As of 05 the [facility] has changed testing methods. The new reference range is 6-51 The old referance range was 23-300 07/29/2006 3:04 PM NEUROLOGY TECH Luis Manuel Shelton MD CHEMISTRY ORDERABLES Edited INTERFACE SYSTEM Refer to clinic/hospital department * (ABNORMAL) COMPREHENSIVE METABOLIC PANEL (07/29/2006 3:04 PM NEUROLOGY TECH) GLUCOSE 112(H) 70 - 110 mg/dL INTERFACE [...] 1.2 mg/dL INTERFACE SYSTEM 07/29/2006 3:04 PM NEUROLOGY TECH Luis Manuel Shelton MD CHEMISTRY ORDERABLES Edited INTERFACE SYSTEM Refer to clinic/hospital department * (ABNORMAL) CBC WITH DIFFERENTIAL (07/29/2006 3:04 PM NEUROLOGY TECH) WBC 3.6(L) 4.5 - 11.0 K/ul INTERFACE [...] 0.2 K/ul INTERFACE SYSTEM 07/29/2006 3:04 PM NEUROLOGY TECH Luis Manuel Shelton MD HEMATOLOGY ORDERABLES Edited INTERFACE SYSTEM Refer to clinic/hospital department * (ABNORMAL) URINALYSIS MICROSCOPY ONLY (07/29/2006 1:24 PM NEUROLOGY TECH) WBC URINE 0-2 0 - 2 INTERFACE SYSTEM RBC UA None Seen 0 - 2 INTERFACE SYSTEM HYALINE CAST None Seen 0 - 2 INTERFA CE SYSTEM BACTERIA UA Moderate(A ) None Seen INTERFACE SYSTEM 07/29/2006 1:24 PM NEUROLOGY TECH us Physician Sj Ed URINE ORDERABLES Edited Performing Organization Address City/[facility]/ZIP Co de Phone Number INTERFACE SYSTEM Refer to clinic/hospital department * (ABNORMAL) URINALYSIS (07/29/2006 1:24 PM NEUROLOGY TECH) COLOR UA Yellow Straw INTERFACE SYSTEM CLARITY [...] Yes(A) No INTERFACE SYSTEM 07/29/2006 1:24 PM NEUROLOGY TECH Physician Sj Ed URINE ORDERABLES Edited Performing Organization Address City/[facility] Co de Phone Number INTERFACE SYSTEM Refer to clinic/hospital department documented in this encounter Visit Diagnoses Diagnosis Abdominal pain, unspecified site- Primary documented in this encounter Additional Health Concerns Infection Onset Date Last Indicated Resolved Time MRSA Comment:Resolved 07/30/2018, Infection Prevention Nares 12/15/15 12/16/2015 12/16/2015 07/30/2018 10:47 AM NEUROLOGY TECH R/O COVID-19 03/01/2020 03/01/2020 03/03/2020 1:01 AM CDT documented as of this encounter Care Teams Second Shift Supervisor Relationship Specialty Start Date End Date Randy Ren MD [address] [place] [address] PCP - General Family Practice 01/25/15 documented as of this encounter
--- OUTSIDE RECORDS SUMMARY | 2025-01-16 14:49 | XMS_ITS | Encounter Summary ---
Author Organization [facility] Address [address] [place] [address] Care Team Providers Care Demi Chef Name Role Phone Andrea Ren DO Primary Care Provider [phone] Encounter Details Date Type Department Care Team (Latest Contact Info) Description 11/22/2024 Results Follow-Up [facility] Medicine [place] [address] [place] [address] Andrea Ren DO [address] [address] CBC WITH DIFFERENTIAL, COMPREHENSIVE METABOLIC PANEL [...] on file Legal Sex Female 2:33 AM DIGESTION OPERATOR Gender Identity Not on file Sexual Orientation Not on file documented as of this encounter Plan of Treatment Upcoming Encounters Date Type Department Care Team (Late st Contact Info) Description 01/30/2025 9:00 AM CDT Appointment [facility] Pulmonary Function Testing [address] [place] [address] 02/03/2025 10:00 AM CDT Office Visit [facility] Urology [address] [place] [phone] Kylie Villafuerte NP [address] [place] [address] 02/26/2025 11:40 AM CDT Office Visit [facility] [address] [address] Andrea Ren DO [address] [place] [address] 03/26/2025 11:10 AM CDT Appointment [facility] [address] [place] [address] Melissa Anand MD [address] [place] [address] 03/30/2025 11:00 AM CDT Office Visit [facility] Gastroenterology- [place] [address] [place] [address] Corin De Leon NP [address] [place] [address] 06/28/2025 11:20 AM DIGESTION OPERATOR Office Visit [facility] Endocrinology [facility] [address] [place] [address] Ora De Anda PA [address] [place] [address] 07/12/2025 10:45 AM DIGESTION OPERATOR Office Visit [facility] Sleep Center [address] [facility] [address] [place] [address] Dorys Cano, PROPAGATOR LABORER [address] [facility] [address] [place] [address] 08/25/2025 8:00 AM CDT Hospital Encounter [facility] Endoscopy [address] [place] [phone] Aayush Jc MD [address] [address] 08/25/2025 8:00 AM CDT - 08/25/2025 8:20 AM CDT Surgery [facility] Endoscopy [address] [place] [address] Aayush Sofia MD [address] [address] COLONOSCOPY 11/11/2025 10:50 AM CDT Office Visit [facility] Gopal James [place] [address] [address] Melissa Anand MD [address] [address] 01/04/2026 10:00 AM CDT Office Visit [facility] [address] [facility] [address] [place] [address] Cristóbal Rush MD [address] [facility] [address] [place] [address] Gavi Ballard, [facility] [address] [facility] [address] [place] [address] Scheduled Procedures Name Priority Associated Diagnoses Date/Ti me COLONOSCOPY Iron deficiency anemia, unspecified iron deficiency anemia type Chronic idiopathic constipation Colon cancer screening 08/25/2025 8:00 AM CDT documented as of this encounter Visit Diagnoses Not on filedocumented in this encounter Additional Health Concerns Assessment Noted Time PHQ-9 Depression Total Score: 6 11/21/19 25 11:00 AM CDT documented as of this encounter Care Teams Demi Chef Relationship Specialty Start Date End Date Andrea Ren DO [address] [place] [address] PCP - General Family Practice 08/03/21 documented as of this encounter
--- OUTSIDE RECORDS SUMMARY | 2025-01-16 14:49 | XMS_ITS | Encounter Summary ---
Author Organization [facility] Address [address] [place] [address] Care Team Providers Care Travel Agent Name Role Phone Andrea Ren Primary Care Provider [phone] Reason for Visit * Reason Comments Med Refill Encounter Details Date Type Department Care Team ([facility] Contact Info) Description 06/16/2024 Refill [facility] Endocrinology [facility] [address] [facility] [address] [place] [address] Ora De Anda PA [address] [address] Type 2 diabetes mellitus with hyperglycemia, with long-term current use of insulin ([facility]) Social History Tobacco Use Types Packs/Day Years Used Date Smoking Tobacco: Former Cigarettes Q uit: 09/08/1988 Passive Smoke Exposure: Past Smokeless Tobacco: Never Alcohol Use Standard Drinks/Week Comments No 0 (1 standard drink = 0.6 oz pur e alcohol) Comments No Sex and Gender Information Value Date Recorded Sex Assigned at Not on file Legal Sex Female 2:33 AM OFFICE PROFESSIONAL Gender Identity Not on file Sexual Orientation Not on file documented as of this encounter Plan of Treatment Upcoming Encounters Date Type Department Care Team ([facility] Contact Info) Description 01/30/2025 9:00 AM CDT Appointment [facility] Pulmonary Function [place] [address] 02/03/2025 10:00 AM CDT Office Visit [facility] Urology [place] [address] [place] [address] Kylie Villafuerte NP [address] [place] [phone] 02/26/2025 11:40 AM CDT Office Visit [facility] Family Medicine [place] [address], [place] [address] Andrea Ren DO [address] [place] [address] 03/26/2025 11:[address] [facility] [address] [place] [address] Melissa Anand MD [address] [place] [address] 03/30/2025 11:00 AM CDT Office Visit [facility] Gastroenterology- [place] [address] [place] [address] Corin De Leon NP [address] [facility] [address] [place] [address] 06/28/2025 11:20 AM OFFICE PROFESSIONAL Office Visit [facility] Endocrinology [facility] [address] [place] [address] Ora De Anda PA [address] [place] [address] 07/12/2025 10:45 AM OFFICE PROFESSIONAL Office Visit [facility] Sleep Center [address] [facility] [address] [place] [address] Dorys Cano, [facility] [address] [place] [address] 08/25/2025 8:00 AM CDT Hospital Encounter [facility] Endoscopy [address] [place] [address] Aayush Jc MD [address] [address] 08/25/2025 8:00 AM CDT - 08/25/2025 8:20 AM CDT Surgery [facility] Endoscopy [address] [place] [address] Aayush Jc MD [address] [address] COLONOSCOPY 11/11/2025 10:50 AM CDT Office Visit [facility] Gopal James Rekha [address] [place] [address] Melissa Anand MD [address] [place] [address] 01/04/2026 10:00 AM CDT Office Visit [facility] [address] [place] [address] Cristóbal Rush MD [address] [place] [address] Gavi aBllard, [facility] [address] [place] [address] Scheduled Procedures Name Priority Associated Diagnoses Date/Ti me COLONOSCOPY Iron deficiency anemia, unspecified iron deficiency anemia type Chronic idiopathic constipation Colon cancer screening 08/25/2025 8:00 AM CDT documented as of this encounter Visit Diagnoses Diagnosis Type 2 diabetes mellitus with hyperglycemia, with long-term current use of insulin ([facility]) documented in this encounter Additional Health Concerns Infection Onset Date Last Indicated Resolved Time R/O COVID-19 10/27/2024 10/27/2024 10/27/2024 6:45 PM CDT Assessment Noted Time PHQ-9 Depression Total Score: 6 03/31/20 8:00 AM CDT documented as of this encounter Care Teams Travel Agent Relationship Specialty Start Date End Date Andrea Ren DO [address], [place] [address] PCP - General Family Practice 08/03/21 documented as of this encounter
--- OUTSIDE RECORDS SUMMARY | 2025-01-16 14:49 | XMS_ITS | Encounter Summary ---
Author Organization [facility] Address [address] [place] [address] Care Team Providers Care Carton Making Machine Operator Name Role Phone Randy Ren MD Primary Care Provider [phone] Encounter Details Date Type Department Care Team (Latest Contact Info) Description 05/31/2004 Outpatient Historical [facility] Medicine [place] [address] [phone] Gregoria Olivarez MD [address] [place] [address] UNSPECIFIED VIRAL INFECTION (Primary Dx) Social History Tobacco Use Types Packs/Day Years Used Date Smoking Tobacco: Never Assessed Comments Unknown Sex and Gender Information Value Date Recorded Sex Assigned at Not on file Legal Sex Female 6:05 AM MARZIPAN MOLDER Gender Identity Not on file Sexual Orientation [...] Nares 12/15/15 12/16/2015 12/16/2015 07/30/2018 10:47 AM MARZIPAN MOLDER R/O COVID-19 03/01/2020 03/01/2020 03/03/2020 1:01 AM CDT documented as of this encounter Care Teams Carton Making Machine Operator Relationship Specialty Start Date End Date Randy Ren MD [address] [place] [address] PCP - General Family Practice 01/25/15 documented as of this encounter
--- OUTSIDE RECORDS SUMMARY | 2025-01-16 14:49 | XMS_ITS | Encounter Summary ---
Author Organization [facility] Address [address] [place] [address] Care Team Providers Care Middleware Systems Architect Name Role Phone Randy Ren MD Primary Care Provider [phone] Reason for Referral * Outpatient Services (Routine) - Closed Specialty Diagnoses / Procedures Referred By Contac t Referred To Contact Radiology Diagnoses Mixed incontinence Morbid obesity (CMS/HCC) Procedures XR VIDEOURODYNAMICS Tyler Christian MD [address] [facility] [address] [place] [address] Phone: tel: fax: [facility] [address] [place] [address] Phone: tel: fax: Referral ID Status Reason Start Date Expiration Date V isits Requested Visits Authorized [id number] Closed [facility] MC TO SCHEDULE (SGF) 01/12/2013 02/12/2014 1 1 Encounter Details Date Type Department Care Team (Late st Contact Info) Description 01/12/2013 Ancillary Orders [facility] Pre-Registration [place] CALL TO MAKE APPOINTMENT ONLY [address] [place] [phone] Tyler Christian MD [address] [address] Mixed incontinence (Primary Dx); Morbid obesity (CMS/HCC) Social History Tobacco Use Types Packs/Day Years Used Date Smoking Tobacco: Former Cigarettes Q uit: 09/08/1988 Alcohol Use Standard Drinks/Week Comments No 0 (1 standard drink = 0.6 oz pur e alcohol) Comments No Sex and Gender Information Value Date Recorded Sex Assigned at Not on file Legal Sex Female 6:05 AM SAP BUSINESS OBJECTS DEVELOPER Gender Identity Not on file Sexual [...] augmented the flow by straining. CYSTOMETRY: A 6-[place]ican dual lumen urodynamic catheter, rectal catheter and [...] augmented the flow by straining. CYSTOMETRY: A 6-[place] dual lumen urodynamic catheter, rectal catheter andsurface [...] flow was 20 mL/sec. Total voided volume aaj744 mL. Residual urine was 60 mL. One [...] on the nomogram. DL/maribel - transcribed in [facility] Tyler Christian MD DIAGNOSTIC IMAGING ORDERABLES Final Result [...] 12/15/15 12/16/2015 12/16/2015 07/30/2018 10:47 AM SAP BUSINESS OBJECTS DEVELOPER R/O COVID-19 03/01/2020 03/01/2020 03/03/2020 1:01 AM CDT documented as of this encounter Care Teams Middleware Systems Architect Relationship Specialty Start Date End Date Randy Ren MD [address] [place] [address] PCP - General Family Practice 01/25/15 documented as of this encounter
--- OUTSIDE RECORDS SUMMARY | 2025-01-16 14:49 | XMS_ITS | Encounter Summary ---
Author Organization [facility] Address [address] [place] [address] Care Team Providers Care Flight Line Mechanic Name Role Phone Randy Ren MD Primary Care Provider [phone] Reason for Visit * Reason Comments Medication Refill Encounter Details Date Type Department Care Team (Late st Contact Info) Description 06/15/2019 Refill [facility] Pain Management Procedures [place] [address] [place] [address] Polina Garcia, SURVEY ASSOCIATE [address] [facility] [address] [phone] Social History Tobacco Use Types Packs/Day Years Used Date Smoking Tobacco: Former Cigarettes 1 2 0 09/08/1986 - 09/08/1988 Smokeless Tobacco: Never Alcohol Use Standard Drinks/Week Comments No 0 (1 standard drink = 0.6 oz pur e alcohol) Comments No Sex and Gender Information Value Date Recorded Sex Assigned at Not on file Legal Sex Female 6:05 AM DOCK CLERK Gender Identity Not on file Sexual [...] Total Score: 3 08/20/19 19 2:00 PM DOCK CLERK documented as of this encounter Care Teams Flight Line Mechanic Relationship Specialty Start Date End Date Randy Ren MD [address], [place] [address] PCP - General Family Practice 01/25/15 documented as of this encounter
--- OUTSIDE RECORDS SUMMARY | 2025-01-16 14:49 | XMS_ITS | Encounter Summary ---
Author Organization [facility] Address [address] [place] [address] Care Team Providers Care Clinical Aide Name Role Phone Randy Ren MD Primary Care Provider [phone] Reason for Referral * Outpatient Services (Routine) - Closed Specialty Diagnoses / Procedures Referred By Contac t Referred To Contact Diagnoses Visit for screening mammogram Procedures MAMMO SCREEN BILAT W OR WO CAD Randy Ren MD [address] [place] [address] Phone: tel: fax: Referral ID Status Reason Start Date Expiration Date Visits Re quested Visits Authorized [id number] Closed 10/16/2017 11/16/2018 1 1 Encounter Details Date Type Department Care Team (Latest Contact Info) Description 10/16/2017 Ancillary Orders [facility] Pre-Registration [place] CALL TO MAKE APPOINTMENT ONLY [address] [place] [address] Randy Ren MD [address] [place] [address] Visit for screening mammogram Social History Tobacco Use Types Packs/Day Years Used Date Smoking Tobacco: Former Cigarettes 0 09/09/1987 - 09/08/1988 Smokeless Tobacco: Never Alcohol Use Standard Drinks/Week Comments No 0 (1 standard drink = 0.6 oz pur e alcohol) Comments No Sex and Gender Information Value Date Recorded Sex Assigned at Not on file 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
--- OUTSIDE RECORDS SUMMARY | 2025-01-16 14:49 | XMS_ITS | Encounter Summary ---
Author Organization [facility] Address [address] [place] [address] Care Team Providers Care Advanced Practice Rn Name Role Phone Randy Ren MD Primary Care Provider [phone] Encounter Details Date Type Department Care Team (Latest Contact Info) Description 03/20/2004 Outpatient Historical 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
--- OUTSIDE RECORDS SUMMARY | 2025-01-16 14:49 | XMS_ITS | Encounter Summary ---
Author Organization [facility] Address [address] [place] [address] Care Team Providers Care Cell Tester Name Role Phone Randy Ren MD Primary Care Provider [phone] Encounter Details Date Type Department Care Team (Latest Contact Info) Description 04/07/[address] 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
--- OUTSIDE RECORDS SUMMARY | 2025-01-16 14:49 | XMS_ITS | Encounter Summary ---
Author Organization [facility] Address [address] [place] [address] Care Team Providers Care Shampoo Technician Name Role Phone Andrea Ren DO Primary Care Provider [phone] Encounter Details Date Type Department Care Team (Latest Contact Info) Description 07/09/2024 Results Follow-Up [facility] Medicine [place] [address] [place] [address] Andrea Ren DO [address] [address] CBC WITH DIFFERENTIAL, COMPREHENSIVE [...] on file Legal Sex Female 2:33 AM WOMEN'S APPAREL SALESPERSON Gender Identity Not on file Sexual Orientation Not on file documented as of this encounter Plan of Treatment Upcoming Encounters Date Type Department Care Team (Late st Contact Info) Description 01/30/2025 9:00 AM CDT Appointment [facility] Pulmonary Function [place] [phone] 02/03/2025 10:00 AM CDT Office Visit [facility] Urology [place] [address] [place] [phone] Kylie Villafuerte NP [address] [place] [address] [address]- 02/26/2025 11:40 AM CDT Office Visit [facility] Family Medicine [place] [address] [address] Andrea Ren DO [address] [address] 03/26/2025 11:10 AM CDT Appointment [facility] [address] [place] [address] Melissa Anand MD [address] [place] [address] 03/30/2025 11:00 AM CDT Office Visit [facility] Gastroenterology- [place] [address] [place] [address] Corin De Leon NP [address] [place] [address] 06/28/2025 11:20 AM WOMEN'S APPAREL SALESPERSON Office Visit [facility] Endocrinology [facility] [address] [place] [address] Ora De Anda PA [address] [place] [address] 07/12/2025 10:45 AM WOMEN'S APPAREL SALESPERSON Office Visit [facility] Sleep Center [address] [facility] [address] [place] [address] Dorys Cano, [facility] [address] [place] [address] 08/25/2025 8:00 AM CDT Hospital Encounter [facility] [address] [place] [address] Aayush Sofia MD [address] [address] 08/25/2025 8:00 AM CDT - 08/25/2025 8:20 AM CDT Surgery [facility] [address] [place] [address] Aayush Jc MD [address] [address] COLONOSCOPY 11/11/2025 10:50 AM CDT Office Visit [facility] Gopal James Rekha [address] [place] [address] Melissa Anand MD [address] [facility] [address] [place] [address] 01/04/2026 10:00 AM CDT Office Visit [facility] [address] [facility] [address] [place] [address] Cristóbal Rush MD [address] [facility] [address] [place] [address] Gavi Ballard, [facility] [address] [facility] [address] [place] [address] Scheduled Procedures Name Priority Associated Diagnoses [...] Total Score: 6 07/02/19 25 10:47 AM WOMEN'S APPAREL SALESPERSON documented as of this encounter Care Teams Shampoo Technician Relationship Specialty Start Date End Date Andrea Ren DO [address] [place] [address] PCP - General Family Practice 08/03/21 documented as of this encounter
--- OUTSIDE RECORDS SUMMARY | 2025-01-16 14:49 | XMS_ITS | Encounter Summary ---
Author Organization [facility] Address [address] [place] [address] Care Team Providers Care Exchange Trouble Shooter Name Role Phone Unavailable Primary Care Provider Unavailabl e Reason for Visit * Reason Comments Office Visit: Converted Data Conversion Encounter Details Date Type Department Care Team (Late st Contact Info) Description 12/24/2023 Dental Interim Note [facility] [address] [place] [address] Default, [facility] Provider [place] Social History Tobacco Use Types Packs/Day Years Used Date Smoking Tobacco: Never Assessed Social Connections Answer Date Recorded Social Connections and Isolation 0 10/09/2023 Financial Resource Strain Answer Date R ecorded Financial Resource Strain 0 2023 Stress Answer Date Recorded Stress 0 10/09/2023 Physical Activity Answer Date Recorded Physical Activity 0 10/09/2023 Food Insecurity Answer Date Recorded Food 0 10/09/2023 Transportation Needs Answer Date Record ed Transportation 0 10/09/2023 Housing Stability Answer Date Recorded Housing 0 10/09/2023 Safety and Environment Answer Date Elfego rded Safety 0 10/09/2023 Utilities Answer Date Recorded Utilities 0 10/09/2023 Employment Answer Date Recorded Employment 0 10/09/2023 Comments Unknown Sex and Gender Information Value Date Recorded Sex Assigned at Not on file Legal Sex Female 5:44 PM PDT Gender Identity Female 12/06/2023 3:40 PM PDT Sexual Orientation Not on file documented as of this encounter Plan of Treatment Not on file documented as of this encounter Visit Diagnoses Not on filedocumented in this encounter
--- OUTSIDE RECORDS SUMMARY | 2025-01-16 14:49 | XMS_ITS | Clinical Summary ---
Author Organization [facility] [place] [address] [place] [address] Care Team Providers Care Renal Dietitian Name Role Phone Andrea Ren Primary Care Provider [phone] Allergies Active Allergy Reactions Criticality Noted Date Comments Methocarbamol Itching,Other (See Comments) Low 02/25/2019 Sulfa (Sulfonamide Antibiotics) Shortness of Breath/Wheezing High 09/08/2010 Trospium Abdominal Pain Low 05/06/2024 Low abdominal pain Unclassified Drug Shortness of Breath/Wheezing High 05/19/2015 Environmental, trees, mold ect. Medications cholecalciferol 1,250 mcg (50,000 unit) Capsule Take 1 Capsule (50,000 Units) by mouth every 7 days. 12 Capsule 0 019 Active ondansetron (ZOFRAN ODT) 8 mg Tablet, Rapid DissolveIndicati ons:Nausea Dissolve 1 tablet on top of tongue then swallow with saliva every 8 hours as needed for nausea or vomiting 30 Tablet 0 020 Active azelastine (ASTELIN) 137 mcg/actuation nasal spray Administer 2 Sprays in each nostril 2 times daily. Angle bottle tip straight back and slightly outward, away from septum. 30 mL 6 021 Active nortriptyline (PAMELOR) 25 mg capsule TAKE 3 CAPSULES BY MOUTH AT BEDTIME 022 Active ARIPiprazole (ABILIFY) 20 mg tablet Take 20 mg by mouth daily. 03/08/2 022 Active magnesium oxide 250 mg magnesium Tablet Take 250 mg by mouth. Active acetaminophen (TYLENOL) 500 mg tablet Take 500 mg by mouth every 6 hours as needed. Active Blood-Glucose Meter,Continuous (Dexcom G7 Criminal Investigative Agent) Use to check BG. 1 Each Active mupirocin (BACTROBAN) 2 % Ointment Apply to affected area daily. 15 Gram Active Additional Information Patient not taking.Reported on 11/05/2024 venlafaxine (EFFEXOR XR) 150 mg Extended Release 24 hour capsuleIndicatio ns:Current mild episode of major depressive disorder, unspecified whether recurrent Take 1 Capsule (150 mg) by mouth daily. Take with 75 mg capsule 90 Capsule 3 Active benztropine (COGENTIN) 1 mg tablet Take 1 mg by mouth 2 times daily. Active polyethylene glycol 3350 (ClearLax) 17 gram/dose Powder Take 1 Scoop (17 Grams) by mouth 2 times daily. 510 Gram 2 Active docusate sodium (COLACE) 100 mg capsule 2 CAPSULES BY MOUTH TWICE A DAY NEEDED FOR CONSTIPATION 120 Capsule Active EPINEPHrine (EPIPEN) 0.3 mg/0.3 mL Auto-Injector Inject 0.3 mL (0.3 mg) by intramuscular injection 1 time daily as needed for Anaphylaxis. 2 Each 2 Active galcanezumab-gnl m (Emgality Pen) 120 mg/mL Pen InjectorIndicati ons:Chronic migraine without aura without status migrainosus, not intractable Inject 1 mL by subcutaneous injection every 30 days. 1 mL 11 Active Motegrity 2 mg Tablet TAKE 1 TABLET(2 MG) BY MOUTH DAILY 90 Tablet 3 Active estradioL (ESTRACE) 0.01% (0.1 mg/g) vaginal cream Insert 1 Gram vaginally see administration instructions. 42.5 Gram 11 Active methenamine hippurate (HIPREX) 1 gram Tablet Take 1 Tablet (1,000 mg) by mouth 2 times daily. 60 Tablet 11 Active fesoterodine SR 24 hour (TOVIAZ) 4 mg tablet Take 1 Tablet (4 mg) by mouth daily. 30 Tablet 11 024 Active Additional Information Patient not taking.Reported on 01/04/2025 bi-level machineIndicatio ns:Obstructive sleep apnea Bi-level (E0470) at 14/10 cm/H2O with heated humidifier (E0562), MASK OF CHOICE, headgear(A7035), cushions (A7031) 1/1 month, (A7032) (A7033) 2 pair/ month. Heated tubing A4604 1/3mo,water chamber A7046 1/6mo,filter disp A7038 2/mo,Reusable filter A7039 1/6mo, Chin strap A7036 a/6mo ENRIQUETA 99mo DX: VIVIAN (G47.33) 1 Each 025 Active diclofenac sodium (VOLTAREN) 1 % gelIndications:C hronic left shoulder pain,Chronic right-sided low back pain with right-sided sciatica Apply 2 Grams to affected area 4 times daily. 300 Gram 1 025 Active HumaLOG KwikPen Insulin 100 unit/mL pen syringeIndicatio ns:Type 2 diabetes mellitus with hyperglycemia, with long-term current use of insulin ([facility]) Sliding Scale Instructions: Less than 100 = [...] daily dose 150 units. 45 mL 3 025 Active baclofen (LIORESAL) 5 mg tabletIndication s:Chronic right-sided low back pain without sciatica Take 1 Tablet (5 mg) by mouth 3 times daily as needed for Pain. 270 Tablet 1 025 Active famotidine (PEPCID) 40 mg tabletIndication s:Gastroesophage al reflux disease without esophagitis,Epig astric abdominal pain TAKE 1 TABLET BY MOUTH AT BEDTIME 30 Tablet 11 025 Active ferrous sulfate (FeroSuL) 325 mg (65 mg iron) tablet Take 1 Tablet (325 mg) by mouth every other day. With vitamin C 90 Tablet Active lancets (OneTouch Delica Plus Lancet) 33 gauge Use to check BG 3x daily in case of cgm failure. 100 Each 025 Active CALCIUM CARBONATE ORAL Take by mouth. Active tirzepatide (Mounjaro) 15 mg/0.5 mL Pen InjectorIndicati ons:Type 2 diabetes mellitus with hyperglycemia, with long-term current use of insulin ([facility]) Inject 0.5 mL (15 mg) by subcutaneous injection every 7 days. 2 mL 5 025 Active Insulin [place], Disposable, ([facility] [employer] Pen Needle) 32 gauge x 1/4 NeedleIndication s:Type 2 diabetes mellitus with hyperglycemia, with long-term current use of insulin ([facility]) Use to inject insulin 5x daily. 500 Each 3 Active rOPINIRole (REQUIP) 1 mg tablet TAKE 1 & 1/2 TO 2 TABLETS BY MOUTH 1 TO 2 HOURS BEFORE BEDTIME. 60 Tablet Active albuterol sulfate HFA 90 mcg/actuation aerosol inhalerIndicatio ns:Wheezing Take 2 Puffs by inhalation every 4 hours as needed for Shortness of Breath or Wheezing (cough). 8.5 Gram 1 Active inhalational spacing device (Microchamber) SpacerIndication s:Wheezing For use with albuterol inhaler. 1 Each 025 Active nitroglycerin (NITROSTAT) 0.4 mg Tablet, SublingualIndica tions:Atypical chest pain Place 1 Tablet (0.4 mg) under tongue every 5 minutes as needed for Chest Pain. 25 Tablet 3 025 Active Dexcom G7 Sensor DeviceIndication s:Type 2 diabetes mellitus with hyperglycemia, with long-term current use of insulin ([facility]) Replace every 10 days. 9 Each 025 Active Linzess 290 mcg capsuleIndicatio ns:Irritable bowel syndrome without diarrhea,Other constipation Take 1 Capsule (290 mcg) by mouth daily before breakfast. For chronic constipation 90 Capsule 025 Active diclofenac sodium (VOLTAREN) 75 mg Tablet, Delayed Release (E.C.)Indication s:Arthritis of both hands Take 1 Tablet (75 mg) by mouth 2 times daily. 60 Tablet 5 025 Active losartan (COZAAR) 50 mg tabletIndication s:Type 2 diabetes mellitus with hyperglycemia, with long-term current use of insulin ([facility]),Essent ial hypertension,Sta ge 3a chronic kidney disease ([facility]),Acute on chronic diastolic congestive heart failure ([facility]) Take 1 Tablet (50 mg) by mouth daily. 100 Tablet 3 025 Active atorvastatin (LIPITOR) 40 mg tabletIndication s:Type 2 diabetes mellitus with hyperglycemia, with long-term current use of insulin ([facility]) Take 1 Tablet (40 mg) by mouth daily at bedtime. 100 Tablet 3 025 Active hydrOXYzine pamoate (VISTARIL) 50 mg capsule take 1 capsule by mouth at bedtime 025 Active blood sugar diagnostic (OneTouch Ultra Test) StripIndications :Type 2 diabetes mellitus with hyperglycemia, with long-term current use of insulin ([facility]) Check blood sugar three times daily with meals and at bedtime. DX E11.65 100 Strip 3 025 Active Blood-Glucose Meter (OneTouch Ultra2 Meter)Indication s:Type 2 diabetes mellitus with hyperglycemia, with long-term current use of insulin ([facility]) Check blood sugar three times daily with meals and at bedtime. DX E11.65 1 Each 025 Active Saccharomyces boulardii (Florastor) 250 mg CapsuleIndicatio ns:C. difficile colitis Take 2 Capsules (500 mg) by mouth 2 times daily. 120 Capsule 2 025 Active cetirizine (ZyrTEC) 10 mg tablet Take 1 Tablet (10 mg) by mouth daily. 90 Tablet 3 025 Active montelukast (SINGULAIR) 10 mg tabletIndication s:Perennial allergic rhinitis Take 1 Tablet (10 mg) by mouth daily at bedtime. 100 Tablet 2 025 Active mometasone (NASONEX) 50 mcg/actuation [place], Non-AerosolIndic ations:Perennial allergic rhinitis Administer 2 Sprays in each nostril daily. 17 Gram 1 025 Active vancomycin (VANCOCIN) 125 mg Capsule TAKE ONE CAPSULE BY MOUTH FOUR TIMES DAILY FOR FOUR DAYS, ONE CAPSULE BY MOUTH TWICE DAILY FOR 7 DAYS, ONE CAPSULE BY MOUTH ONCE DAILY FOR 7 DAYS, THEN ONE CAPSULE BY MOUTH EVERY 3 DAYS for FOUR WEEKS Active insulin glargine (Lantus Solostar U-100 Insulin) 100 unit/mL pen syringeIndicatio ns:Type 2 diabetes mellitus with hyperglycemia, with long-term current use of insulin ([facility]) Inject 50 Units by subcutaneous injection 2 times daily. 75 mL 3 025 2025 Active nystatin (NYSTOP) 100,000 unit/gram powderIndication s:Candidal intertrigo Apply to affected area 2 times daily. 60 Gram 5 Active HYDROcodone-acet aminophen (NORCO) 5-325 mg tabletIndication s:Irritable bowel syndrome without diarrhea Take 1 Tablet by mouth every 6 hours as needed for Pain, Moderate. Max Daily Amount: 4 Tablets 20 Tablet Active bumetanide (BUMEX) 1 mg tabletIndication s:Peripheral edema Take 1 Tablet (1 mg) by mouth 2 times daily. HOLD furosemide and HCTZ 60 Tablet 1 Active fluconazole (DIFLUCAN) 150 mg tabletIndication s:Candidal intertrigo Take 1 Tablet (150 mg) by mouth daily. Repeat in 72 hours if symptoms have not resolved or improved. 2 Tablet 1 Active Additional Information Patient not taking.Reported on 01/04/2025 esomeprazole (NexIUM) 40 mg Capsule, Delayed Release(E.C.)Ind ications:Gastroe sophageal reflux disease, unspecified whether esophagitis present Take 1 Capsule (40 mg) by mouth 2 times daily. 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 60 Tablet 1 025 2024 Active venlafaxine (EFFEXOR XR) 75 mg Extended Release 24 hour capsuleIndicatio ns:Current mild episode of major depressive disorder, unspecified whether recurrent TAKE 1 CAPSULE BY MOUTH DAILY FOR 30 DAYS. TAKE WITH 150MG FOR A DAILY TOTAL OF 225MG. 100 Capsule 025 Active Jardiance 25 mg tabletIndication s:Type 2 diabetes mellitus with hyperglycemia, with long-term current use of insulin ([facility]) Take 1 Tablet (25 mg) by mouth daily in the morning. 90 Tablet 1 025 Active metFORMIN (GLUCOPHAGE) 1,000 mg tabletIndication s:Type 2 diabetes mellitus with hyperglycemia, with long-term current use of insulin ([facility]) TAKE 1 TABLET (1 000 MG) BY MOUTH 2 TIMES DAILY WITH MEALS. 180 Tablet 1 025 Active metFORMIN (GLUCOPHAGE) 1,000 mg tabletIndication s:Type 2 diabetes mellitus with hyperglycemia, with long-term current use of insulin ([facility]) TAKE 1 TABLET (1 000 MG) BY MOUTH 2 TIMES DAILY WITH MEALS. 180 Tablet 1 025 2024 Discontinued empagliflozin (Jardiance) 25 mg tabletIndication s:Type 2 diabetes mellitus with hyperglycemia, with long-term current use of insulin ([facility]) Take 1 Tablet (25 mg) by mouth daily in the morning. 90 Tablet 1 025 2024 Discontinued glimepiride (AMARYL) 4 mg tabletIndication s:Type 2 diabetes mellitus with hyperglycemia, with long-term current use of insulin ([facility]) Take 1 Tablet (4 mg) by mouth 2 times daily. 180 Tablet 1 025 2024 Discontinued(A lternate therapy prescribed) fluconazole (DIFLUCAN) 150 mg tabletIndication s:Candidal intertrigo Take 1 Tablet (150 mg) by mouth daily. Repeat in 72 hours if symptoms have not resolved or improved. 2 Tablet 1 025 2024 Discontinued(R eorder) omeprazole (PriLOSEC) 40 mg Capsule, Delayed Release(E.C.) TAKE 1 CAPSULE BY MOUTH TWICE A DAY 60 Capsule 3 025 2024 Discontinued(A lternate therapy prescribed) venlafaxine (EFFEXOR XR) 75 mg Extended Release 24 hour capsuleIndicatio ns:Current mild episode of major depressive disorder, unspecified whether recurrent TAKE 1 CAPSULE BY MOUTH DAILY FOR 30 DAYS. TAKE WITH 150MG FOR A DAILY TOTAL OF 225MG. 100 Capsule 025 2024 Discontinued bumetanide (BUMEX) 1 mg tabletIndication s:Peripheral edema Take 1 Tablet (1 mg) by mouth 2 times daily. HOLD furosemide and HCTZ 60 Tablet 025 2024 Discontinued OXcarbazepine (TRILEPTAL) 150 mg tabletIndication s:Diabetic polyneuropathy associated with type 2 diabetes mellitus (CMS/HCC),Migrai ne without aura and without status migrainosus, not intractable,Poacher Wringer Operator loc right-sided low back pain with right-sided sciatica Take 1 Tablet (150 mg) by mouth daily for 7 days, THEN 1 Tablet (150 mg) 2 times daily for 21 days. 60 Tablet 1 025 2024 Discontinued Active Problems Problem Noted Date Diagnosed Date Chronic diastolic heart failure 01/04/2025 H/O thyroid nodule 12/07/2024 Candidal intertrigo 09/10/2023 Stage 3a chronic kidney [...] Smooth Anechoic None or large comet-tail artifacts [id number] Cystic or almost completely cystic. ACR TIRADS 0, benign Nodule 2: Right lobe interpolar region measuring 1.1 cm. This is grossly stable allowing previous measurement 9 mm. Ill-defined Hypoechoic None or large comet-tail artifacts [id number] Solid or almost completely solid. ACR TIRADS 4, moderately suspicious follow-up recommended greater than 1 cm. Nodule 3: Left lobe inferiorly measuring 1.0 cm. Ill-defined Anechoic None or large comet-tail artifacts [id number] Cystic or almost completely cystic. ACR TIRADS 0, benign. IMPRESSION: Grossly stable solid right thyroid lesion characterized ACR TIRADS 4, moderately suspicious, follow-up recommended greater than 1 cm. Additional cystic nodules characterized benign. Assessment & Plan (06/05/2023 1:26 PM TECHNOLOGIST DEVELOPMENT): Stable. No change to medication Primary osteoarthritis [...] 05/22/2017 Has a tremor 05/22/2017 Rectocele 01/31/2017 Hepatosplenomegaly 01/14/2017 Hypovitaminosis D 01/10/2017 Iron deficiency anemia [...] 01/05/2014 Assessment & Plan (06/05/2023 1:26 PM TECHNOLOGIST DEVELOPMENT): Stable and Controlled. No change to medication. DASH Diet handout provided. GERD (gastroesophageal reflux disease) 4 Class 3 severe obesity due t o excess calories with serious comorbidity and body mass index (BMI) of 40.0 to 44.9 in adult 01/05/2014 Assessment & Plan (06/05/2023 1:27 PM TECHNOLOGIST DEVELOPMENT): Estimated body mass index is 45.35 kg/m [...] 01/05/2014 Assessment & Plan (06/05/2023 2:02 PM TECHNOLOGIST DEVELOPMENT): Suboptimal control. Recommend referral to nuclear reactor technician for DM and weight loss. Recommend increase of basal insulin to 68 units. Increase of Ozempic to 2 mg Lymphedema of leg 01/05/2014 Restless legs syndrome (RLS) 07/13/2013 VIVIAN on CPAP 01/06/2013 Resolved Problems Problem Noted Date Diagnosed Date Resolved Date Hypervolemia 10/27/2024 11/25/2024 Acute pharyngitis 10/27/2024 11/25/2024 Simple chronic bronchitis 01/02/2018 Right-sided low back pain wi th right-sided sciatica 07/12/2015 03/26/2018 Chronic daily headache 04/13/201504/08 Menorrhagia with irregular cycle 02/18/2015 07/26/2015 Irregular menses 12/13/2014 05/31/2015 Chronic ethmoidal sinusitis 11/25/2014 07/07/2019 Chronic sphenoidal sinusitis 11/25/2014 07/07/2019 Chronic frontal sinusitis 11/25/2014 Chronic maxillary sinusitis 11/25/2014 07/07/2019 Urinary incontinence 01/05/2014 016 Encounters Date Type Department Care Team Description 01/11/2025 Orders Only [facility] Endocrinology [facility] [address] [place] [address] Eve Cancino 01/10/2025 Refill [facility] Endocrinology [facility] [address] [place] [address] Ora De Anda PA Type 2 diabetes mellitus with hyperglycemia, with long-term current use of insulin ([facility]) 01/05/2025 External Device Data STL ABSTRACTION Provider, Abstract 01/04/2025 9:50 AM CDT Office Visit [facility] [address] [facility] [facility] [address] [place] [phone] Cristóbal Rush MD Essential hypertension (Primary Dx); VIVIAN on CPAP; Chronic diastolic heart failure ([facility]) 01/02/[address] [phone] Danita Smith FNP Current mild episode of major depressive disorder, unspecified whether recurrent 12/30/[address] [phone] Andrea Ren DO Diabetic polyneuropathy associated with type 2 diabetes mellitus; Migraine without aura and without status migrainosus, not intractable; Chronic right-sided low back pain with right-sided sciatica 12/25/2024 Results Follow-Up [facility] [address] [phone] Danita Smith FNP TSH REFLEXIVE, VITAMIN D 25 HYDROXY, CBC WITH DIFFERENTIAL, Additional followed-up results: 2 12/24/2024 11:00 AM CDT Office Visit [address] [phone] Danita Smith FNP Type 2 diabetes mellitus with hyperglycemia, with long-term current use of insulin ([facility]) (Primary Dx); Thyroid nodule; Stage 3a chronic kidney disease ([facility]); BMI 40.0-44.9, adult ([facility]) 12/22/2024 1:40 PM CDT Office Visit [address] [phone] Andrea Ren DO Gastroesophageal reflux disease, unspecified whether esophagitis present (Primary Dx); Candidal intertrigo; C. difficile colitis 12/22/2024 External Device Data STL ABSTRACTION Provider, Abstract 12/21/[address] [phone] Danita Smith FNP Peripheral edema 12/14/[address] [phone] Andrea Ren DO Needs Orders Written 12/08/2024 Orders Only [facility] Information [facility] [place] [address] [place] [address] Provider, Abstract 12/07/2024 2:40 PM CDT Office Visit [address] [phone] Andrea Ren DO Type 2 diabetes mellitus with hyperglycemia, with long-term current use of insulin ([facility]) (Primary Dx); C. difficile colitis; Candidal intertrigo; Irritable bowel syndrome without diarrhea; H/O thyroid nodule 12/07/[address] [phone] Andrea Ren DO Perennial allergic rhinitis (Primary Dx) 12/02/2024 External Device Data STL ABSTRACTION Provider, Abstract 11/25/2024 11:40 AM CDT Office Visit [address] [phone] Andrea Ren DO Class 3 severe obesity due to excess calories with serious comorbidity and body mass index (BMI) of 40.0 to 44.9 in adult (Primary Dx); Type 2 diabetes mellitus with hyperglycemia, with long-term current use of insulin (CMS/[facility]); Memory loss of unknown cause; Hepatosplenomegaly; Acute congestive heart failure, unspecified heart failure type (CMS/HCC) 11/24/2024 External Device Data STL ABSTRACTION Provider, Abstract 11/24/2024 External Device Data STL ABSTRACTION Provider, Abstract 11/24/[address] [phone] Danita Smith, [facility] Wheezing 11/22/2024 Results Follow-Up [address] [phone] Andrea Ren DO CBC WITH DIFFERENTIAL, COMPREHENSIVE METABOLIC PANEL 2024 11:00 AM CDT Office Visit [address] [phone] Andrea Ren DO C. difficile colitis (Primary Dx); Hyponatremia; Hospital discharge follow-up; Type 2 diabetes mellitus with hyperglycemia, with long-term current use of insulin ([facility]) 11/17/[address] [phone] Andrea Ren DO Medical Records 11/17/[address] [address] Andrea Ren DO 11/17/2024 Orders Only [facility] Information [facility] [place] [address] [place] [address] Provider, Abstract 11/13/[address] [phone] Daniat Smith FNP Type 2 diabetes mellitus with hyperglycemia, with long-term current use of insulin (CMS/HCC) 11/12/2024 3:00 PM CDT Office Visit [address] [phone] Andrea Ren DO Peripheral edema (Primary Dx); Stage 3a chronic kidney disease (CMS/HCC); Hemorrhoids, unspecified hemorrhoid type; Diabetic polyneuropathy associated with type 2 diabetes mellitus; Migraine without aura and without status migrainosus, not intractable; Chronic right-sided low back pain with right-sided sciatica; Hypoxemia; Arthritis of both hands 11/11/2024 Refill [facility] [address] [phone] Danita Smith FNP Irritable bowel syndrome without diarrhea; Other constipation 11/11/2024 Refill [facility] [address] [place] [address] Ora De Anda PA Essential hypertension (Primary Dx); Type 2 diabetes mellitus with hyperglycemia, with long-term current use of insulin (CMS/HCC); Stage 3a chronic kidney disease (CMS/HCC); Acute on chronic diastolic congestive heart failure (CMS/HCC) 11/07/2024 Results Follow-Up [facility] [address] [phone] Danita Smith FNP CBC WITH DIFFERENTIAL, COMPREHENSIVE METABOLIC PANEL 11/06/2024 External Device Data STL ABSTRACTION Provider, Abstract 11/05/2024 1:50 PM CDT Office Visit [facility] [address] [place] [address] Ora De Anda PA Type 2 diabetes mellitus with hyperglycemia, with long-term current use of insulin (CMS/HCC) (Primary Dx) 11/05/2024 11:25 AM CDT Office Visit [facility] [address] [phone] Melissa Anand MD Encounter for gynecological examination without abnormal finding (Primary Dx); Breast cancer screening by mammogram; Essential hypertension; Class 3 severe obesity due to excess calories with serious comorbidity and body mass index (BMI) of 40.0 to 44.9 in adult 11/05/2024 External Device Data STL ABSTRACTION Provider, Abstract 11/05/2024 External Device Data STL ABSTRACTION Provider, Abstract 11/05/2024 Orders Only [facility] Information [facility] [place] [address] [place] [address] Provider, Abstract 11/05/[address] [phone] Andrea Ren, 11/04/2024 5:10 PM CDT Office Visit [address] [phone] Danita Smith FNP Type 2 diabetes mellitus with hyperglycemia, with long-term current use of insulin (CMS/HCC) (Primary Dx); Stage 3a chronic kidney disease (CMS/HCC); Peripheral edema; Atypical chest pain 11/04/2024 External Device Data STL ABSTRACTION Provider, Abstract 11/04/2024 External Device Data STL ABSTRACTION Provider, Abstract 11/02/[address] [phone] Andrea Ren DO Information 10/29/2024 3:10 PM CDT Office Visit [address] [phone] Danita Smith FNP Stage 3a chronic kidney disease (CMS/HCC) (Primary Dx); Precordial chest pain; Acute pulmonary edema (CMS/HCC); Wheezing; Peripheral edema 10/27/2024 4:16 PM CDT - 10/27/2024 7:[address] [facility] Emergency Medicine [address] [place] [phone] Phill Marvin MD Other hypervolemia (Primary Dx); Acute pharyngitis, unspecified etiology; Hepatosplenomegaly Discharge Disposition: Home or Self Care 10/27/2024 Travel 10/27/2024 Telephone [facility] [address] [phone] MelissadarianaAndrea DO Medication Assistance 10/26/2024 8:40 AM CDT Office Visit [facility] [address] [phone] Rohini Swann, LILLIE Viral upper respiratory infection (Primary Dx); Sore throat from Last 3 Months Immunizations Immunization Administration Dates Next Due (ADACEL/BOOSTRIX)(10 YR UP) TDAP VACCINE, 0.5ML, IM 04/29/2015 (PFIZER)(12 YR UP) COVID-19 VACCINE - EMERGENCY USE AUTHORIZATION, MRNA, [id number](PF) 30 MCG/0.3 ML IM SUSP 03/09/2021,02/09/2021 (PNEUMOVAX [...] on file Legal Sex Female 2:33 AM TECHNOLOGIST DEVELOPMENT Gender Identity Not on file Sexual Orientation Not on file Last Filed Vital Signs Vital Sign Reading Time Taken Comments Blood Pressure 140/58 01/04/2025 9:28 AM CDT Pulse 96 01/04/2025 9:28 AM CDT Temperature 36.4 C (97.5 F) 12/24/2024 11:25 AM CDT Respiratory Rate 20 12/24/2024 11:2 5 AM CDT Oxygen Saturation 97% 01/04/2025 9:28 AM CDT Inhaled Oxygen Concentration - - Weight 120.5 kg (265 lb 9.6 oz) 01/04/2025 9:28 AM CDT Height 167.6 cm (5' 6 ) 01/04/2025 9:28 AM CDT Body Mass Index 42.87 01/04/2025 9:28 AM CDT Plan of Treatment Upcoming Encounters Date Type Department Care Team (Late st Contact Info) Description 01/30/2025 9:00 AM CDT Appointment [facility] Dariana Hylton [address] [place] [phone] 02/03/2025 10:00 AM CDT Office Visit [facility] [address] [place] [phone] Kylie Villafuerte NP [address] [place] [phone] 02/26/2025 11:40 AM CDT Office Visit [facility] [address] [place] [phone] Andrea Ren DO [address] [place] [phone] 03/26/2025 11:[address] [facility] [phone] Melissa Anand MD [address] [phone] 03/30/2025 11:00 AM CDT Office Visit [facility] Gastro[facility] [place] [address] [place] [address] Corin De Leon NP [address] [facility] [address] [address] 06/28/2025 11:20 AM TECHNOLOGIST DEVELOPMENT Office Visit [facility] Endocrinology [facility] [address] [place] [address] Ora De Anda, ELSA [address] [place] [address] 07/12/2025 10:45 AM TECHNOLOGIST DEVELOPMENT Office Visit [facility] [address] [facility] [address] [address] Dorys Cano, ANALYST COMPETITIVE INTELLIGENCE [address] [facility] [address] [place] [address] 08/25/2025 8:00 AM CDT Hospital Encounter [facility] Endoscopy [address] [place] [address] Aayush Jc MD [address] [address] 08/25/2025 8:00 AM CDT - 08/25/2025 8:20 AM CDT Surgery [facility] Endoscopy [address] [place] [address] Aayush Jc MD [address] [address] COLONOSCOPY 11/11/2025 10:50 AM CDT Office Visit [facility] Gopal James Rekha [address] [place] [phone] Melissa Anand MD [address] [place] [address] 01/04/2026 10:00 AM CDT Office Visit [facility] [address] [facility] [address] [place] [phone] Cristóbal Rush MD [address] [facility] [address] [place] [phone] Gavi Ballard, LILLIE [address] [facility] [address] [place] [phone] Scheduled Procedures Name Priority Associated Diagnoses [...] VACCINE (1 of 2) 2020 COVID-19 Vaccine (3 - 2023-2 5 season) 2024 03/09/2021, 02/09/2021 INFLUENZA VACCINE (#1) 2025 , 04/05/2023, 04/05/2023, Additional history exists DIABETES: A1C (Auto Order) 02/14/202511/14, 10/30/2024, 10/08/2024, Additional history exists BREAST CANCER SCREENING 03/26/2025 03/26/20, 03/25/2023, 03/21/2022, Additional history exists DIABETES ANNUAL FOOT EXAM 04/28/20252023, 03/19/2024, 02/14/2023, Additional history exists DTAP/TDAP/TD VACCINES (2 - T d or Tdap) 04/29/2025 04/29/2015 DIABETES ANNUAL RETINAL EXAM 05/06/2025, 05/02/2023, 05/01/2022, Additional history exists DIABETES HBA1C Q 6 MONTHS 05/16/20252024, 10/30/2024, 10/08/2024, Additional history exists COLORECTAL SCREENING 06/16/2025 06/16/2024, 06/16/2024, 11/21/2018, Additional history exists Colorectal Cancer Screening 06/16/2025 DIABETES MICROALBUMIN ANNUAL SCREEN 07/02/2025 07/02/2024, 11/01/2023, 09/10/2023, Additional history exists LDL CHOLESTEROL ANNUAL 12/24/2025 , 11/14/2024, 10/31/2024, Additional history exists KHE uACR (Auto Order) Completed 07/02/2024 , 11/01/2023, 09/10/2023, Additional history exists Medicare Advantage ([place]) Preventative Visit/Annual Wellness Visit Completed 11/05/2024, 07/02/2024, 12/25/2023, Additional history exists FREDOE eGFR (Auto Order) Completed 12/24/2024 , 12/03/2024, 12/01/2024, Additional history exists Medical Devices Implanted Type Area Gis Manager Device Identifier Shelf Expiration Date Model / Serial / Lot Hemostatic Gelfoam Powder 1gm [id number] - Sna Implanted:Qty: 1 on 01/03/2016 by Thiago Teran MD Hemostatic Right: Spine Lumbar PFIZER- PHARM 06/16/2018 [id number] / NA / [id number] Hemostatic Gelfoam Spng 12-7mm [id number] - Csc - Sna Implanted:Qty: 1 on 01/03/2016 by Thiago Teran MD Hemostatic Right: Spine Lumbar PFIZER- PHARM 04/16/2018 [id number] / NA / [id number] Procedures Procedure Name Priority Date/Time Associated Diagnosis Comments LIPID PANEL Routine 12/24/2024 12:10 PM CDT Type 2 diabetes mellitus with hyperglycemia, with long-term current use of insulin (CMS/HCC) Thyroid nodule Stage 3a chronic kidney disease (CMS/HCC) COMPREHENSIVE METABOLIC PANEL Routine 12/24/2024 12:10 PM CDT Type 2 diabetes mellitus with hyperglycemia, with long-term current use of insulin (CMS/HCC) Stage 3a chronic kidney disease (CMS/HCC) CBC WITH DIFFERENTIAL Routine 12/24/2024 12:10 PM CDT Type 2 diabetes mellitus with hyperglycemia, with long-term current use of insulin (CMS/HCC) VITAMIN D 25 HYDROXY Routine 12/24/2024 12:10 PM CDT BMI 40.0-44.9, adult (CMS/HCC) TSH REFLEXIVE Routine 12/24/2024 12:10 PM CDT Thyroid nodule Stage 3a chronic kidney disease (CMS/HCC) COMPREHENSIVE METABOLIC PANEL Routine 12/03/2024 9:49 AM CDT NM MYOCARD PERF IMAG SPECT MULT Routine 12/02/2024 9:50 AM CDT ECHO LIMITED Routine 12/01/2024 9:49 AM CDT COMPREHENSIVE METABOLIC PANEL Routine 12/01/2024 9:48 AM CDT COMPREHENSIVE METABOLIC PANEL Routine 11/30/2024 9:47 AM CDT COMPREHENSIVE METABOLIC PANEL Routine 11/30/2024 9:47 AM CDT COMPREHENSIVE METABOLIC PANEL Routine 11/29/2024 9:46 AM CDT COMPREHENSIVE METABOLIC PANEL Routine 11/28/2024 9:45 AM CDT COMPREHENSIVE METABOLIC PANEL Routine 11/27/2024 9:45 AM CDT COMPREHENSIVE METABOLIC PANEL Routine 2024 12:09 PM CDT Hyponatremia CBC WITH DIFFERENTIAL Routine 2024 12:09 PM CDT C. difficile colitis COMPREHENSIVE METABOLIC PANEL Routine 11/16/2024 8:51 AM CDT COMPREHENSIVE METABOLIC PANEL Routine 11/15/2024 8:50 AM CDT COMPREHENSIVE METABOLIC PANEL Routine 11/14/2024 8:50 AM CDT HEMOGLOBIN A1C Routine 11/14/2024 LIPID PANEL Routine 11/14/2024 BASIC METABOLIC PANEL Routine 11/12/2024 4:28 PM [...] Routine 10/26/2024 9:37 AM CDT Sore throat MICROALBUMIN/CREATINI NE RATIO, RANDOM UR Routine 07/02/2024 11:52 AM TECHNOLOGIST DEVELOPMENT Type 2 diabetes mellitus with hyperglycemia, with long-term current use of insulin ([facility]) COLONOSCOPY REPORT 06/16/2024 10 :00 AM TECHNOLOGIST DEVELOPMENT HM DIABETES EYE EXAM Routine 05/06/2024 11:09 AM TECHNOLOGIST DEVELOPMENT MAMMO 3D JAYLON SCREEN BILAT W OR WO CAD Routine 03/26/2024 11:36 AM CDT Breast cancer screening by mammogram POC OCCULT BLOOD UP TO 3 CARDS Routine 07/31/2017 11:51 AM TECHNOLOGIST DEVELOPMENT from Last 3 Months or Most Recently Relevant to Health Maintenance Results * TSH REFLEXIVE (12/24/2024 12:10 PM CDT) TSH 1.15 mIU/L [facility] Comment: Reference Range > or = 20 Years 0.40-4.50 Ranges First trimester 0.26-2.66 Second trimester 0.55-2.73 Third trimester 0.43-2.91 Test Performed at: [facility] [address] [place] [address] Harlan Guidry MD Blood 12/24/2024 12:1 0 PM CDT 12/24/2024 12:10 PM CDT us Danita MOREIRA CHEMISTRY ORDERABLES Final Re sult [facility] [phone] [facility] [address] [place] [address] * (ABNORMAL) CBC WITH DIFFERENTIAL (12/24/2024 12:10 PM CDT) Only the most recent of5 resultswithin the time period is included. WBC 6.9 3.8 - 10.8 Thousand/u L [facility] RBC 4.56 3.80 - 5.10 Million/uL [facility] HEMOGLOBIN 11.3(L) 11.7 - 15.5 g/dL [facility] HEMATOCRIT 37.8 35.0 - 45.0 % [facility] MCV 82.9 80.0 - 100.0 fL [facility] MCH 24.8(L) 27.0 - 33.0 pg [facility] MCHC 29.9(L) 32.0 - 36.0 g/dL [facility] Comment: For adults, a slight decrease in the calculated MCHC value (in the range of 30 to 32 g/dL) is most likely not clinically significant; however, it should be interpreted with caution in correlation with other red cell parameters and the patient's clinical condition. RDW 16.9(H) 11.0 - 15.0 % [facility] PLATELETS 244 140 - 400 Thousand/u L [facility] MPV 10.5 7.5 - 12.5 fL [facility] NEUTROPHIL ABSOLUTE 5,168 1,500 - 7,800 cells/uL [facility] LYMPHOCYTE ABSOLUTE 1,249 850 - 3,900 cells/uL [facility] MONOCYTE ABSOLUTE 331 200 - 950 cells/uL [facility] EOSINOPHIL ABSOLUTE 110 15 - 500 cells/uL [facility] BASOPHILS ABSOLUTE 41 0 - 200 cells/uL [facility] NEUTROPHIL 74.9 % [facility] LYMPHOCYTES 18.1 % [facility] MONOCYTE 4.8 % [facility] EOSINOPHILS 1.6 % [facility] BASOPHILS 0.6 % [facility] Comment: FASTING:NO FASTING: NO Test Performed at: [facility] [address] [facility] [place] [address] Harlan Guidry MD Blood 12/24/2024 12:1 0 PM CDT 12/24/2024 12:10 PM CDT us Danita MOREIRA HEMATOLOGY ORDERABLES Final R esult [facility] [phone] [facility] [address] [address] [facility] [place] [address] * VITAMIN D 25 HYDROXY (12/24/2024 12:10 PM CDT) VITAMIN D, 25 OH, TOTAL 51 30 - 100 ng/mL [facility] Comment: Vitamin D Status 25-OH Vitamin D: Deficiency: <20 ng/mL Insufficiency: 20 - 29 ng/mL Optimal: > or = 30 ng/mL For 25-OH Vitamin D testing on patients on D2-supplementation and patients for whom quantitation of D2 and D3 fractions is required, the [facility]) 25-OH VIT D, (D2,D3), LC/MS/MS is recommended: order code 70512 (patients >2yrs). See Note 1 Note 1 For additional information, please refer to http://education.[employer]/faq/BHQ455 (This link is being provided for informational/ educational purposes only.) FASTING:NO FASTING: NO Test [facility]formed [facility]: [facility] [address] [place] [address] Harlan Guidry MD Blood 12/24/2024 12:1 0 PM CDT 12/24/2024 12:10 PM CDT us Danita Smith ANALYST COMPETITIVE INTELLIGENCE CHEMISTRY ORDERABLES Final Re sult [facility] [phone] [address] * (ABNORMAL) LIPID PANEL (12/24/2024 12:10 PM CDT) Only the most recent of4 resultswithin the time period is included. [facility] CHOLESTEROL 112 <200 mg/dL [facility] HDL 36(L) > OR = 50 mg/dL [facility] TRIGLYCERIDE 166(H) <150 mg/dL [facility] LDL CALCULATED 52 mg/dL (calc) [facility] Comment: Reference range: <100 Desirable range <100 mg/dL for primary prevention; <70 mg/dL for patients with CHD or diabetic patients with > or = 2 CHD risk factors. LDL-C is now calculated using the Serge-Davis calculation, which is a validated novel method providing better accuracy than the Friedewald equation in the estimation of LDL-C. Serge SS et al. ANSELMO. 2013;310(19): 2943-4497 (http://education.[employer]/faq/JBE938) CHOL/HDL RATIO 3.1 <5.0 (calc) [facility] NON-HDL CHOLESTEROL 76 <130 mg/dL (calc) [facility] Comment: For patients with diabetes plus 1 major ASCVD risk factor, treating to a non-HDL-C goal of <100 mg/dL (LDL-C of <70 mg/dL) is considered a therapeutic option. Test Performed at: [facility] [address] [facility] [place] [address] Harlan Guidry MD Blood 12/24/2024 12:1 0 PM CDT 12/24/2024 12:10 PM CDT Danita Smith ANALYST COMPETITIVE INTELLIGENCE CHEMISTRY ORDERABLES Final Re sult [facility] [phone] [facility] [address] [facility] [address] * (ABNORMAL) COMPREHENSIVE METABOLIC PANEL (12/24/2024 12:10 PM CDT) Only the most recent of19 resultswithin the time period is included. GLUCOSE 105 65 - 139 mg/dL [facility] Comment: Non-fasting reference interval BUN 10 7 - 25 mg/dL [facility] CREATININE 0.77 0.50 - 1.03 mg/dL [facility] GFR 92 > OR = 60 mL/min/1. 73m2 [facility] BUN/CREAT RATIO SEE NOTE: 6 - 22 (calc) [facility] Comment: Not Reported: BUN and Creatinine are within reference range. SODIUM 140 135 - 146 mmol/L [facility] POTASSIUM 4.1 3.5 - 5.3 mmol/L [facility] CHLORIDE 101 98 - 110 mmol/L [facility] CO2 30 20 - 32 mmol/L [facility] CALCIUM 9.8 8.6 - 10.4 mg/dL [facility] TOTAL PROTEIN 7.5 6.1 - 8.1 g/dL [facility] ALBUMIN 3.7 3.6 - 5.1 g/dL [facility] GLOBULIN 3.8(H) 1.9 - 3.7 g/dL (calc) [facility] ALBUMIN/GLOBULIN RATIO 1.0 1.0 - 2.5 (calc) [facility] BILIRUBIN TOTAL 0.3 0.2 - 1.2 mg/dL [facility] ALKALINE PHOSPHATASE 165(H) 37 - 153 U/L [facility] AST 25 10 - 35 U/L [facility] ALT 26 6 - 29 U/L [facility] Comment: FASTING:NO FASTING: NO Test Performed at: [facility] [id number] [place] [address] Harlan Guidry MD Blood 12/24/2024 12:1 0 PM CDT 12/24/2024 12:10 PM CDT us Danita ROSASP CHEMISTRY ORDERABLES Final Re sult [facility] [phone] [facility] [address] [place] [address] * NM MYOCARD PERF IMAG SPECT MULT (12/02/2024 9:50 AM CDT) us Abstract Provider NM ORDERABLES Final Result * ECHO LIMITED (12/01/2024 9:49 AM CDT) Abstract Provider ECHO ORDERABLES Final Result * HEMOGLOBIN A1C (11/14/2024) Only the most recent of2 resultswithin the time period is included. ABSTRACTED HGB A1C 9.1 % Blood 11/14/2024 us Abstract Provider CHEMISTRY ORDERABLES Final Res ult * (ABNORMAL) BASIC METABOLIC PANEL (11/12/2024 4:28 [...] [facility] Comment: Test Performed at: [facility] [address] [place] [address] Harlan Guidry MD Blood 11/12/2024 4:28 PM CDT 11/13/2024 4:50 AM CDT us Andrea Ren DO CHEMISTRY ORDERABLES Final Re sult [facility] [phone] [facility] [address] [place] [address] * ECHO COMPLETE - CONTRAST AND STRAIN IF INDICATED (10/30/2024 10:11 AM CDT) us Abstract Provider US ORDERABLES Final Result * PROTIME-INR (10/30/2024) Only the most recent of2 resultswithin the time period is included. ABSTRACTED PROTIME 14.6 ABSTRACTED INR 1.07 Blood 10/30/2024 us Abstract Provider HEMATOLOGY ORDERABLES Final Re sult * (ABNORMAL) TROPONIN 2 HR, 5TH GEN (10/27/2024 6:35 PM CDT) Pathologist [facility] TROPONIN T, 2 HR 5TH GEN 13(H) <=10 ng/L 10/27/2024 6:53 PM CDT [facility] DELTA 2HR TROPONIN T 1 See Interp. 10/27/2024 6:53 PM CDT [facility] Blood BLOOD SPECIMEN / Unknown Collection / Unknown 10/27/2024 6:35 PM CDT 10/27/2024 6:38 PM CDT [facility] - 10/27/2024 6:53 PM CDT Troponin elevated. Delta not changing. us Phill Marvin MD CHEMISTRY ORDERABLES Final Resu lt [facility] CLIA # [id number] [address] [place] [address] * COVID-19 ANTIGEN (10/27/2024 6:17 PM CDT) Pathologist [facility] COVID-19 ANTIGEN Presumptive Negative Presumptive Negative 10/27/2024 6:45 PM CDT [facility] Upper Respiratory ANTERIOR NARES SWAB / Unknown Collection / Unknown 10/27/2024 6:17 PM CDT 10/27/2024 6:30 PM CDT [facility] - 10/27/2024 6:45 PM CDT Gwen SARS antigen test has been authorized by FDA under an emergency use authorization (EUA) and has been authorized only for the detection of proteins from SARS-CoV-2 and influenza, not for any other viruses or pathogens. Gwen SARS Antigen RBOBI is intended for the simultaneous qualitative detection and differentiation of nucleocapsid protein antigen from SARS-CoV-2 directly from nasopharyngeal (REGIONAL TELECOMMUNICATIONS SPECIALIST) and nasal (NS) swab specimens collected from [...] MICROBIOLOGY - GENERAL ORDERABL ES Final Result [facility] # [id number] [address] [place] [address] * INFLUENZA VIRUS A AND B, ANTIGEN DETECTION (10/27/2024 6:17 PM CDT) INFLUENZA A AG NOT DETECTED Not Detected 10/27/2024 6:45 PM CDT [facility] INFLUENZA B AG NOT DETECTED Not Detected 10/27/2024 6:45 PM CDT [facility] Upper Respiratory ENTIRE NASOPHARYNX / Unknown Collection / Unknown 10/27/2024 6:17 PM CDT 10/27/2024 6:30 PM CDT Narrative [facility] - 10/27/2024 6:45 PM CDT Negative results do not rule out infection. If clinically indicated, consider PCR testing which is more sensitive than antigen testing. If PCR testing is desired, consult with your local laboratory as sample recollection may be required. us Phill Marvin MD MICROBIOLOGY - GENERAL ORDERABL ES Final Result [facility] CLIA # [id number] [address] [place] [address] * CTA CHEST W AND/OR WO CONTRAST [...] ED Physician in the absence of a sole stainer: yes Rate: ECG rate: 114 ECG rate assessment: tachycardic Rhythm: Rhythm Origin: sinus [place]: QRS axis: Normal QRSTT: QRSTT changes: No us Phill Marvin MD ECG ORDERABLES Final Result * (ABNORMAL) DRUG SCREEN, URINE (10/27/2024 5:36 PM CDT) [facility] CANNABINOIDS QUAL, URINE Negative Negative 10/27/2024 5:53 PM CDT [facility] PCP QUAL, URINE Negative Negative 5:53 PM CDT [facility] COCAINE QUAL URINE Negative Negative 2024 5:53 PM CDT [facility] METHAMPHETAMINE QUAL, URINE Negative Negative 10/27/2024 5:53 PM CDT [facility] OPIATE QUAL, URINE Negative Negative 2024 5:53 PM CDT [facility] AMPHETAMINE QUAL, URINE Negative Negative 10/27/2024 5:53 PM CDT [facility] BENZODIAZEPINE QUAL, URINE Negative Negative 10/27/2024 5:53 PM CDT [facility] TRICYCLICS QUAL, URINE Presumptive Positive(A) Negative 10/27/2024 5:53 PM CDT [facility] METHADONE QUAL, URINE Negative Negative 10/27/2024 5:53 PM CDT [facility] BARBITURATE QUAL, URINE Negative Negative 10/27/2024 5:53 PM CDT [facility] OXYCODONE QUAL, URINE Negative Negative 10/27/2024 5:53 PM CDT [facility] Urine URINE SPECIMEN OBTAINED BY CLEAN CATCH PROCEDURE / Unknown Collection / Unknown 10/27/2024 5:36 PM CDT 10/27/2024 5:36 PM CDT Narrative [facility] - 10/27/2024 5:53 PM CDT This [...] Cannabinoids 50 ng/mL Tricyclic Antidepressants 300 ng/mL Phill Marvin MD URINE ORDERABLES Final Result [facility] CLIA # [id number] [address] [place] [address] * (ABNORMAL) URINALYSIS WITH REFLEX MICROSCOPIC (10/27/2024 5:36 PM CDT) COLOR UA Yellow Pale to Dark Yellow 10/27/2024 5:38 PM CDT [facility] CLARITY UA Clear Clear 10/27/2024 5:38 PM CDT [facility] SPECIFIC GRAVITY UA 1.015 1.003 - 1.035 10/27/2024 5:38 PM T [facility] PH UA 6.5 5.0 - 8.0 10/27/2024 5:38 PM CDT [facility] LEUKOCYTE ESTERASE UA Negative Negative 10/27/2024 5:38 PM CDT [facility] NITRITE UA Negative Negative 10/27/2024 5:38 PM CDT [facility] PROTEIN UA Negative Negative 10/27/2024 5:38 PM [facility] GLUCOSE UA 3+(A) Negative 10/27/2024 5:38 PM CDT [facility] KETONES UA Negative Negative 10/27/2024 5:38 PM CDT [facility] UROBILINOGEN UA 1.0 <2.0 mg/dL 5:38 PM CDT [facility] BILIRUBIN UA Negative Negative 10/27/2024 5:38 PM CDT [facility] BLOOD UA Negative Negative 10/27/2024 5:38 PM CDT [facility] Urine URINE SPECIMEN OBTAINED BY CLEAN CATCH PROCEDURE / Unknown Collection / Unknown 10/27/2024 5:36 PM CDT 10/27/2024 5:36 PM CDT Phill Marvin MD URINE ORDERABLES Final Result [facility] CLIA # [id number] [address] [place] [address] * XR CHEST PA OR AP 1 [...] vascular congestion and possible trace interstitial edema/pneumonitis. us Phill Marvin MD DIAGNOSTIC IMAGING ORDERABLES F inal Result * (ABNORMAL) TROPONIN BASELINE, 5TH GEN (10/27/2024 4:30 PM CDT) TROPONIN T, BASELINE 5TH GEN 12(H) <=10 ng/L 10/27/2024 4:54 PM CDT [facility] Blood Collection / Unknown 10/27/2024 4:30 PM CDT 10/27/2024 4:35 PM CDT Narrative [facility] - 10/27/2024 4:54 PM CDT Troponin elevated. us Phill Marvin MD CHEMISTRY ORDERABLES Final Resu lt Performing Organization Address City/[facility]/ZIP Co de Phone Number [facility] CLIA # [id number] [address] [place] [address] * (ABNORMAL) LACTIC ACID (10/27/2024 4:30 PM CDT) LACTIC ACID 2.6(H) <=2.0 mmol/L 10/27/2024 4:54 PM CDT [facility] Blood BLOOD SPECIMEN / Unknown Collection / Unknown 10/27/2024 4:30 PM CDT 10/27/2024 4:35 PM CDT us Phill Marvin MD CHEMISTRY ORDERABLES Final Resu lt Performing Organization Address City/[facility]/ZIP Co de Phone Number [facility] CLIA # [id number] [address] [place] [address] * PTT (10/27/2024 4:30 PM CDT) PTT 33.2 25.8 - 34.0 seconds 10/27/2024 4:52 PM CDT [facility] Blood Collection / Unknown 10/27/2024 4:30 PM CDT 10/27/2024 4:35 PM CDT us Phill Marvin MD HEMATOLOGY ORDERABLES Final Res ult Performing Organization Address [facility] de Phone Number [facility] CLIA # [id number] [address] [place] [address] * (ABNORMAL) SEDIMENTATION RATE (10/27/2024 4:30 PM CDT) ESR (SEDIMENTATION RATE) 58(H) 0 - 30 mm/Hr 10/27/2024 4:54 PM CDT [facility] Blood Collection / Unknown 10/27/2024 4:30 PM CDT 10/27/2024 4:35 PM CDT [facility] - 10/27/2024 4:54 PM CDT Tube Lot: #[id number] Exp Date: 03/16/2026 SR 0125-1 EXP. 12/19/24 SR 0125-2 EXP. 12/19/24 us Phill Marvin MD HEMATOLOGY ORDERABLES Final Res ult Performing Organization Address [facility] Co de Phone Number [facility] CLIA # [id number] [address] [place] [address] * (ABNORMAL) D-DIMER (10/27/2024 4:30 PM CDT) D-DIMER QUANT 1.09(H) <0.50 ug/mL FEU 10/27/2024 4:52 PM CDT [facility] Blood Collection / Unknown 10/27/2024 4:30 PM CDT 10/27/2024 4:35 PM CDT [facility] - 10/27/2024 4:52 PM CDT D-Dimer assay [...] ug/mL FEU 71-80 years: 0.71-0.80 ug/mL FEU Phill Marvin MD HEMATOLOGY ORDERABLES Final Res ult Performing Organization Address City/[facility]/ZIP Co de Phone Number [facility] CLIA # [id number] [address] [place] [id number] * (ABNORMAL) C-REACTIVE PROTEIN (10/27/2024 4:30 PM CDT) CRP 38.6(H) <5.0 mg/L 10/27/2024 4:54 PM CDT [facility] Blood Collection / Unknown 10/27/2024 4:30 PM CDT 10/27/2024 4:35 PM CDT Phill Marvin MD CHEMISTRY ORDERABLES Final Resu lt Performing Organization Address [facility] Co de Phone Number [facility] CLIA # [id number] [address] [place] [phone] * (ABNORMAL) BRAIN NATRIURETIC PEPTIDE, BNP OR PROBNP (10/27/2024 4:30 PM CDT) PROBNP, N TERMINAL 268(H) 0 - 125 pg/mL 10/27/2024 4:54 PM CDT [facility] Comment: INTERPRETIVE COMMENT based on diagnosis: [...] 4:30 PM CDT 10/27/2024 4:35 PM CDT Phill Marvin MD CHEMISTRY ORDERABLES Final Resu lt Performing Organization Address [facility] Co de Phone Number [facility] CLIA # [id number] [address] [place] [address] * MAGNESIUM LEVEL (10/27/2024 4:30 PM CDT) MAGNESIUM 1.9 1.6 - 2.6 mg/dL 10/27/2024 4:54 PM CDT [facility] Blood Collection / Unknown 10/27/2024 4:30 PM CDT 10/27/2024 4:35 PM CDT Phill Marvin MD CHEMISTRY ORDERABLES Final Resu lt Performing Organization Address [facility] Co de Phone Number [facility] CLIA # [id number] [address] [place] [address] * POC RAPID STREP A ANTIGEN (10/26/2024 9:37 AM CDT) RAPID STREP POC Negative Negative, Indeterminate [facility] INTERNAL KIT QC POC Pass Pass [facility] KIT LOT NUMBER POC [id number] [facility] KIT EXP DATE POC 10/10/25 [facility] READ METHOD POC Visual [facility] Upper Respiratory SPECIMEN FROM THROAT / Unknown 10/26/2024 9:37 AM CDT Rohini Swann ANALYST COMPETITIVE INTELLIGENCE POINT OF CARE TESTING Fi nal Result [facility] CLIA# [id number] [address] [place] [address] * MICROALBUMIN/CREATININE RATIO, RANDOM UR (07/02/2024 11:52 AM TECHNOLOGIST DEVELOPMENT) Creatinine, Urine 72 20 - 275 mg/dL [...] within a diagnostic category. Test Performed at: [place] [address] Harlan Guidry MD Urine URINE SPECIMEN OBTAINED BY CLEAN CATCH PROCEDURE / Unknown 07/02/2024 11:52 AM TECHNOLOGIST DEVELOPMENT 07/02/2024 11:52 AM TECHNOLOGIST DEVELOPMENT Andrea Ren DO URINE ORDERABLES Final Result Performing Organization Address City/[facility]/ZIP Co de Phone Number [facility] [phone] [facility] [address] [place] [phone] * COLONOSCOPY REPORT (06/16/2024 10:00 AM TECHNOLOGIST DEVELOPMENT) Narrative Procedure Note Aayush Jc MD - 06/16/2024 10:00 AM CST [facility] GI Patient Name: Maya Figueroa Procedure Date: 06/16/2024 Date of : 1970 Admit Type: Outpatient Age: 53 Attending MD: Aayush Jc , , Procedure: Colonoscopy Indications: Iron deficiency anemia Providers: Aayush Jc Referring MD: Andrea Ren Medicines: Monitored Anesthesia Care Complications: No immediate [...] bowel preparation was evaluated using the BBPS ([place] Bowel Preparation Scale) with scores of: Right [...] Scope Out: 9:51:13 AM [address] [place], [place] Aayush Jc MD GI PROCEDURE ORDERABLES Final Result * HM DIABETES EYE EXAM (05/06/2024 11:09 AM TECHNOLOGIST DEVELOPMENT) us Abstract Provider HEALTH MAINTENANCE Edited Resu lt [...] UP TO 3 CARDS (07/31/2017 11:51 AM TECHNOLOGIST DEVELOPMENT) OCCULT BLOOD 1 CARD POC Negative Negative 07/31/2017 11:54 AM TECHNOLOGIST DEVELOPMENT [facility] OCCULT BLOOD 2 CARD POC Negative Negative 07/31/2017 11:54 AM TECHNOLOGIST DEVELOPMENT [facility] OCCULT BLOOD 3 CARD POC Invalid Result(A) Negative 07/31/2017 11:54 AM [facility] Comment:no specimen on card INTERNAL KIT QC Pass Pass 07/31/2017 11:54 AM TECHNOLOGIST DEVELOPMENT [facility] CARD LOT NUMBER POC [id number] 07/31/2017 11:54 AM TECHNOLOGIST DEVELOPMENT [facility] CARD EXPIRATION DATE POC 02-15-2018 07/31/2017 11:54 AM TECHNOLOGIST DEVELOPMENT [facility] DEVELOPER LOT NUMBER POC [id number] 07/31/2017 11:54 AM TECHNOLOGIST DEVELOPMENT [facility] DEVELOPER EXPIRATION DATE POC 12-16-2019 07/31/2017 11:54 AM TECHNOLOGIST DEVELOPMENT [facility] Stool STOOL SPECIMEN / Unknown 07/31/2017 11:51 AM TECHNOLOGIST DEVELOPMENT us Danita Smith ANALYST COMPETITIVE INTELLIGENCE POINT OF CARE TESTING Final R esult [facility] CLIA# [id number] [address] [address] from Last 3 Months or Most Recently Relevant to Health Maintenance Insurance [place]ICAID [place] DUAL COMPLETE HMO [facility] [id number] [place]ICAID [place] * Guarantor: MAYA FIGUEROA Account Type Relation to Patient Date of Phone Billing Address Personal/Family [address] [place] [address] RX INFOCROSSING Medicaid RX OMER PLANS (INTERNAL) [facility] Internal Plans Advance Directives For more information, please contact: [phone] * Full Code (Latest Code Status on File) Date Activated Date Inactivated Comments 06/16/2024 8:51 AM 06/16/2024 12:23 PM Care Teams Renal Dietitian Relationship Specialty Start Date End Date Andrea Ren DO [address] [address] PCP - General Family Practice 08/03/21
--- OUTSIDE RECORDS SUMMARY | 2025-01-16 14:49 | XMS_ITS | Encounter Summary ---
Author Organization [facility] Address [address] [place] [address] Care Team Providers Care Blood Bank Laboratory Technologist Name Role Phone Randy Ren MD Primary Care Provider [phone] Encounter Details Date Type Department Care Team (Latest Contact Info) Description 04/24/2004 Outpatient Historical [facility] [place] [address] [place] [phone] Nehemiah Rodríguez MD [address] [facility] [address] [place] [address] GI SYSTEM SYMPTOMS OTHER (Primary Dx) Social History Tobacco Use Types Packs/Day Years Used Date Smoking Tobacco: Never Assessed Comments Unknown Sex and Gender Information Value Date Recorded Sex Assigned at Not on file 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
--- OUTSIDE RECORDS SUMMARY | 2025-01-16 14:49 | XMS_ITS | Encounter Summary ---
Author Organization [facility] Address [address] [place] [address] Care Team Providers Care Remote Sensing Specialist Name Role Phone Randy Ren MD Primary Care Provider [phone] Encounter Details Date Type Department Care Team (Latest Contact Info) Description 07/14/2004 Outpatient Historical [facility] [place] [address] [address] Gregoria Olivarez MD [address] [place] [address] ACUTE FRONTAL SINUSITIS (Primary Dx) Social History Tobacco Use Types Packs/Day Years Used Date Smoking Tobacco: Never Assessed Comments Unknown Sex and Gender Information Value Date Recorded Sex Assigned at Not on file 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 Gender Identity Not on file Sexual Orientation Not on file documented as of this encounter Plan of Treatment Not on file documented as of this encounter Visit Diagnoses Diagnosis Acute frontal sinusitis- Primary documented in this encounter Additional Health Concerns Infection Onset Date Last Indicated Resolved Time MRSA Comment:Resolved 07/30/2018, Infection Prevention Nares 12/15/15 12/16/2015 12/16/2015 07/30/2018 10:47 AM INSERTING PRESS OPERATOR R/O COVID-19 03/01/2020 03/01/2020 03/03/2020 1:01 AM CDT documented as of this encounter Care Teams Remote Sensing Specialist Relationship Specialty Start Date End Date Randy Ren MD [address] [place] [address] PCP - General Family Practice 01/25/15 documented as of this encounter
--- OUTSIDE RECORDS SUMMARY | 2025-01-16 14:49 | XMS_ITS | Clinical Summary ---
Author Organization [facility] Address [address] [place] [address] Care Team Providers Care Pipe Chipper Name Role Phone Unavailable Primary Care Provider Unavailabl e Source Comments PLEASE NOTE, if this patient is a minor, it may be UNLAWFUL to discuss sensitive information that is contained in these records (such as FAMILY PLANNING, MENTAL HEALTH or SUBSTANCE ABUSE) with the minor patient's parent or other person without the patient's specific authorization.[facility] Allergies Active Allergy Reactions Criticality Noted Date Comments Methocarbamol 06/06/2023 Sulfa (Sulfonamide Antibiotics) 05/18 Social History Tobacco Use Types Packs/Day Years Used Date Smoking Tobacco: Never Assessed Social Connections Answer Date Recorded Connectedness 0 03/02/2024 Financial Resource Strain Answer Date R ecorded Financial Resource Strain 0 2023 Stress Answer Date Recorded Stress 0 10/09/2023 Physical Activity Answer Date Recorded Physical Activity 0 10/09/2023 Food Insecurity Answer Date Recorded Food 0 03/12/2024 Transportation Needs Answer Date Record ed Transportation 0 10/09/2023 Housing Stability Answer Date Recorded Housing 0 10/09/2023 Safety and Environment Answer Date Elfego rded Safety 0 10/09/2023 Utilities Answer Date Recorded Utilities 0 10/09/2023 Employment Answer Date Recorded Stress 0 03/02/2024 Comments Unknown Sex and Gender Information Value Date Recorded Sex Assigned at Not on file Legal Sex Female 5:44 PM PDT Gender Identity Female 12/06/2023 3:40 PM PDT Sexual Orientation Not on file Plan of Treatment Health Maintenance Due Date Last Done Comments Anxiety Screening 1970 Diabetes Screening 1970 HPV Screening 1970 Hepatitis C Screening 1970 Lipid Screening 1970 Pap + HPV 1970 Tobacco Screening 1970 HIV Screening 1985 Hypertension Screening (#1) 1988 Imm-DTaP/Tdap/Td (1 - Tdap) 1989 Imm-Hepatitis B (1 of 3 - 19+ 3-dose series) 0 Cervical Cancer Screening 11/21/1991 Pap Smear 11/21/1991 Breast Cancer Screening (Mammogram) 2010 CT Colonography 11/21/2015 Colonoscopy 11/21/2015 Colorectal Cancer Screening 11/21/2015 FIT/gFOBT 11/21/2015 Fecal DNA 11/21/2015 Flexible Sigmoidoscopy 11/21/2015 Imm-Pneumococcal 50+ (1 of 1 - PCV) 2020 Imm-Zoster, Recombinant (1 of 2) 2020 Act-PNYIO-82 (1 - 2023- season) 2024 Alcohol and Drug Screen 06/17/2024 Depression Annual Screen 06/17/2024 Imm-Influenza (#1) 2025 Cervical Ablation/Cold-Knife Conization Discontinued Cervical Cryotherapy Discontinued Colposcopy Discontinued Endometrial Biopsy Discontinued Excision/Leep Discontinued HPV Genotyping Discontinued Vaginal Pap Discontinued Vulvoscopy Discontinued
--- OUTSIDE RECORDS SUMMARY | 2025-01-16 14:49 | XMS_ITS | Encounter Summary ---
Author Organization [facility] Address [address] [place] [address] Care Team Providers Care Paralegal Instructor Name Role Phone Randy Ren MD Primary Care Provider [phone] Encounter Details Date Type Department Care Team (Latest Contact Info) Description 05/08/2004 Outpatient Historical [facility] Medicine [address] [phone] Gregoria Olivarez MD [address] [place] [address] ACUTE TONSILLITIS (Primary Dx) Social History Tobacco Use Types Packs/Day Years Used Date Smoking Tobacco: Never Assessed Comments Unknown Sex and Gender Information Value Date Recorded Sex Assigned at Not on file 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 Gender Identity Not on file Sexual Orientation Not on file documented as of this encounter Plan of Treatment Not on file documented as of this encounter Visit Diagnoses Diagnosis Acute tonsillitis- Primary documented in this encounter Additional Health Concerns Infection Onset Date Last Indicated Resolved Time MRSA Comment:Resolved 07/30/2018, Infection Prevention Nares 12/15/15 12/16/2015 12/16/2015 07/30/2018 10:47 AM CUSTOMER TECHNICAL SERVICES MANAGER R/O COVID-19 03/01/2020 03/01/2020 03/03/2020 1:01 AM CDT documented as of this encounter Care Teams Paralegal Instructor Relationship Specialty Start Date End Date Randy Ren MD [address] [place] [address] PCP - General Family Practice 01/25/15 documented as of this encounter
[2025-01-16 14:50] VITALS: BP 136/83; PULSE 106; RESP 18; TEMP 36.8; O2SAT 95; BMI 42.5
--- NOTE | 2025-01-16 14:55 | CTR_ITS ---
PROCEDURE INFORMATION: Exam: CT Abdomen And Pelvis With Contrast Exam date and time: 01/16/2025 3:49 PM Age: 54 years old Clinical indication: Abdominal pain; Additional info: Abd pain TECHNIQUE: Imaging protocol: Computed tomography of the abdomen and pelvis with contrast. Radiation optimization: All CT scans at this facility use at least one of these dose optimization techniques: automated exposure control; mA and/or kV adjustment per patient size (includes targeted exams where dose is matched to clinical indication); or iterative reconstruction. Contrast material: OMNI 350; Contrast volume: 100 ml; Contrast route: INTRAVENOUS (IV); COMPARISON: CT chest abdpel w/*[id number] 11/27/2024 5:51 PM RADIATION DOSE METRICS: Total DLP (mGy-cm): 1165.84 FINDINGS: Lungs: Lung bases are clear. No pleural effusion. Liver: Normal. No mass. Gallbladder and biliary ducts: The gallbladder has been resected. Pancreas: Normal. No ductal dilation. Spleen: Normal. No splenomegaly. Adrenal glands: Normal. No mass. Kidneys and ureters: Normal. No hydronephrosis. Stomach and bowel: Liquid stool is noted throughout the entire colon and there is mild colonic wall inflammation. No bowel distension. Appendix: No evidence of appendicitis. Intraperitoneal space: Unremarkable. No free air. No significant fluid collection. Vasculature: Unremarkable. No abdominal aortic aneurysm. Lymph nodes: Unremarkable. No enlarged lymph nodes. Urinary bladder: Unremarkable as visualized. Reproductive: Unremarkable as visualized. Bones/joints: Unremarkable. No acute fracture. Soft tissues: Unremarkable. CT/CT abdomen pelvis w con* [id number] IMPRESSION: Mild diffuse colitis
--- NOTE | 2025-01-16 15:01 | W.ED.ABDPA2 ---
HPI - Abdominal Pain General: Chief Complaint: Abdominal Pain Stated Complaint: abd pain / diarheea Time Seen by Provider: 01/16/25 14:49 Source: patient Mode of arrival: ambulatory Limitations: no limitations History of Present Illness: 54-year-old female who states that she has been having abdominal pain over the last 2 days she has been a cramping type pain she is also had diarrhea. She has had C. difficile in the past and this diarrhea has been very watery and is concerned she may have C. difficile again she denies any fevers rates her pain a 3 out of 10 denies any vomiting Associated Symptoms: Reports diarrhea; Denies chills, dysuria, fever(s), nausea and vomiting Related Data Home Medications ?Medication ?Instructions ?Recorded ?Confirmed acetaminophen 500 mg tablet 500 mg PO QID PRN Pain 12/12/19 12/14/24 atorvastatin 40 mg PO BEDTIME 12/12/19 12/14/24 baclofen 5 mg PO BID 12/12/19 12/14/24 cetirizine 10 mg tablet 10 mg PO DAILY 12/12/19 12/14/24 docusate sodium 100 mg PO BID 12/12/19 12/14/24 epinephrine 0.3 mg IM PRN PRN anaphylaxis 12/12/19 12/14/24 gabapentin 600 mg tablet 800 mg PO TID 12/12/19 12/14/24 metformin 1,000 mg PO BID 12/12/19 12/14/24 empagliflozin 25 mg tablet 25 mg PO QAM 09/18/21 12/14/24 (Jardiance) linaclotide 290 mcg capsule 290 mcg PO QAM 09/18/21 12/14/24 (Linzess) montelukast 10 mg tablet 10 mg PO DAILY 09/18/21 12/14/24 (Singulair) pantoprazole 40 mg tablet,delayed 40 mg PO BID 09/18/21 12/14/24 release (Protonix) ropinirole 1 mg tablet 2 mg PO BEDTIME 09/18/21 12/14/24 aripiprazole 20 mg tablet 20 mg PO DAILY 10/30/24 12/14/24 benztropine 1 mg tablet 1 mg PO BID 10/30/24 12/14/24 cholecalciferol (vitamin D3) 10 See Rx Instructions .Route .COMPLEX 10/30/24 12/14/24 mcg (400 unit) tablet hydroxyzine pamoate 50 mg capsule 50 mg PO BEDTIME 10/30/24 12/14/24 insulin lispro 100 unit/mL See Rx Instructions .Route .COMPLEX 10/30/24 12/14/24 subcutaneous pen (Humalog KwikPen (U-100) Insulin) nortriptyline 25 mg capsule 75 mg PO BEDTIME 10/30/24 12/14/24 tirzepatide 15 mg/0.5 mL 15 mg SUBCUT Q7D 10/30/24 12/14/24 subcutaneous pen injector (Mounjaro) venlafaxine 75 mg capsule,extended 75 mg PO DAILY 10/30/24 12/14/24 release 24 hr albuterol sulfate 90 mcg/actuation 90 mcg inhalation Q4H PRN 10/31/24 12/14/24 aerosol inhaler Shortness Of Breath Or Wheezing azelastine 137 mcg (0.1 %) nasal 2 spray intranasal BID PRN 10/31/24 12/14/24 spray Congestion bumetanide 1 mg tablet 1 mg PO BID 10/31/24 12/14/24 diclofenac sodium 1 % topical gel 2 g topical QID 10/31/24 12/14/24 estradiol 0.01% (0.1 mg/gram) 1 g vaginal PRN 10/31/24 12/14/24 vaginal cream famotidine 40 mg tablet 40 mg PO BEDTIME 10/31/24 12/14/24 ferrous sulfate 325 mg (65 mg 325 mg PO EVERY OTHER DAY 10/31/24 12/14/24 iron) tablet (FeroSul) fesoterodine 4 mg tablet,extended 4 mg PO DAILY 10/31/24 12/14/24 release 24 hr galcanezumab-gnlm 120 mg/mL 120 mg SUBCUT Q30D 10/31/24 12/14/24 subcutaneous pen injector (Emgality Pen) methenamine hippurate 1 gram tablet 1 g PO BID 10/31/24 12/14/24 mometasone 50 mcg/actuation nasal 50 mcg intranasal DAILY 10/31/24 12/14/24 spray prucalopride 2 mg tablet 2 mg PO DAILY 10/31/24 12/14/24 (Motegrity) Previous Rx's ?Medication ?Instructions ?Recorded meclizine 25 mg tablet (Dramamine 25 mg PO TID PRN motion sickness 10/13/23 (meclizine)) #20 tabs ondansetron 4 mg disintegrating 4 mg PO Q6H PRN nausea and 04/12/24 tablet vomiting #12 tabs insulin glargine 100 unit/mL (3 45 unit (0.45 mL) SUBCUT BID #3 mL 11/02/24 mL) subcutaneous pen (Lantus Solostar U-100 Insulin) losartan 50 mg tablet 50 mg PO DAILY #30 tabs 11/02/24 venlafaxine 150 mg 150 mg PO QAM 30 days #30 caps 11/11/24 capsule,extended release 24 hr (Effexor XR) vancomycin 125 mg capsule See Rx Instructions .Route 11/29/24 .COMPLEX #63 caps metronidazole 500 mg tablet 500 mg PO Q8H 14 days #42 tabs 01/16/25 Allergies Allergy/AdvReac Type Severity Reaction Status Date / Time methocarbamol Allergy Intermediate itching Verified 01/16/25 14:58 Sulfa (Sulfonamide Allergy Unknown Unknown Verified 01/16/25 14:58 Antibiotics) tramadol Allergy ADR-Headach Verified 01/16/25 14:58 e Review of Systems Const: Denies: fever(s), chills, body aches or change in appetite ENMT: Denies: throat pain or dental pain Card: Denies: chest pain Resp: Denies: dyspnea GI: Reports: abdominal pain and diarrhea; Denies: nausea or vomiting : Denies: dysuria Musc: Denies: neck pain or back pain Skin/Breast: Denies: rash Neuro: Denies: headache(s) PFS ED PFSH: Medical History Uncontrolled type 2 diabetes mellitus Diastolic heart failure Pulmonary hypertension COPD (chronic obstructive pulmonary disease) Diabetes Psychiatric care Medication management Sleep apnea treated with nocturnal BiPAP Hypersomnia Major depressive disorder, recurrent, severe with psychotic symptoms Chronic post-traumatic stress disorder Generalized anxiety disorder Surgical History History of back surgery due to a herniated disk. 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 Close due to her mother's health deterioration. She has 3 children and lives her daughter Alice Harris as next of kin decision maker at [phone] Patient wants full code as discussed today with Matthew Marr MD on 11/27/2024 Patient is and currently lives with her nephew and his who help to take care of her Current gender identity: Female Female Reproductive History: Spontaneous abortions: No Physical Exam Const: COMMON NORMALS: no acute distress, patient oriented x3 and healthy appearing HENMT: COMMON NORMALS: normocephalic and atraumatic HEAD & SCALP: normocephalic and atraumatic Eye: COMMON NORMALS: conjunctivae normal CONJUNCTIVA: Yes conjunctivae normal Neck/C-Spine: COMMON NORMALS: full ROM and supple Chest: COMMONS NORMALS: normal inspection of the chest Resp: COMMON NORMALS: normal respiratory effort, No retractions, No use of accessory muscles and clear to auscultation bilaterally AUSCULTATION: clear to auscultation bilaterally Cardio: COMMON NORMALS: regular rate, regular rhythm and No murmurs present (Cardio) RATE: regular rate RHYTHM: regular rhythm GI: COMMON NORMALS: Normal to inspection, nondistended, normoactive bowel sounds present, Soft to palpation and no masses PALPATION: Yes Soft to palpation OTHER: mild lower abd tenderness Extremity: COMMON NORMALS: normal to inspection and full ROM Neuro: COMMON NORMALS: patient oriented x3, moves all extremities and no focal motor deficits Psych: COMMON NORMALS: mental status grossly normal, Normal thought process present and cooperative THOUGHT PROCESS: Normal thought process present Skin: COMMON NORMALS: no rashes or lesions noted and no wounds GENERAL SKIN EXAM: no rashes or lesions noted Course Vital Signs: Vital signs: Vital Signs Temperature 98.2 F 01/16/25 14:50 Pulse Rate 97 01/16/25 16:21 Respiratory Rate 16 01/16/25 16:21 Blood Pressure 137/70 01/16/25 16:21 Pulse Oximetry 91 01/16/25 16:21 Oxygen Delivery Me thod Room Air 01/16/25 16:21 MDM - Abdominal Pain Medical Decision Making Patient presents here with abdominal pain with diarrhea she did test positive for C. difficile CT shows a mild colitis white count is not elevated will start treatment of the oral antibiotic Flagyl will get her follow-up with ID she is return if worsening she understands agrees to plan. Medical Records I reviewed the patient's medical records. Lab Data I reviewed the patient's lab results. 01/16/25 15:14 01/16/25 15:14 Labs/Radiology: Radiology Impressions Abdomen/Pelvis CT 01/16/25 14:55 IMPRESSION: Mild diffuse colitis Laboratory Results WBC 9.18 10^3/uL (3.29-11.43) 01/16/25 15:14 RBC 4.78 10^6/uL (3.85-5.65) 01/16/25 15:14 Hgb 11.70 g/dL (11.27-16.99) 01/16/25 15:14 Hct 39.1 % (36-47) 01/16/25 15:14 MCV 81.8 fl (85-98) L 01/16/25 15:14 MCH 24.5 pg (27-33) L 01/16/25 15:14 MCHC 29.9 g/dL (30-55) L 01/16/25 15:14 RDW 17.3 % (12.1-15.1) H 01/16/25 15:14 Plt Count 296 10^3/cmm (157-399) 01/16/25 15:14 MPV 10.2 fL (7.4-10.4) 01/16/25 15:14 Neut % (Auto) 79.6 % 01/16/25 15:14 Lymph % (Auto) 13.2 % 01/16/25 15:14 Finney % (Auto) 5.0 % 01/16/25 15:14 Eos % (Auto) 1.6 % 01/16/25 15:14 Baso % (Auto) 0.4 % 01/16/25 15:14 Neut # (Auto) 7.30 10^3/uL (1.8-7.7) 01/16/25 15:14 Lymph # (Auto) 1.2 10^3/uL (0.8-4.8) 01/16/25 15:14 Finney # (Auto) 0.5 10^3/uL (0.2-0.9) 01/16/25 15:14 Eos # (Auto) 0.2 10^3/uL (0.0-0.8) 01/16/25 15:14 Baso # (Auto) 0.0 10^3/uL (0.0-0.1) 01/16/25 15:14 Nucleated RBC % (auto) 0 % 01/16/25 15:14 Nucleated RBCs # 0.0 /100WBC 01/16/25 15:14 Sodium 138 mmol/L (136-145) 01/16/25 15:14 Potassium 3.5 mmol/L (3.5-5.1) 01/16/25 15:14 Chloride 98 mmol/L (98-107) 01/16/25 15:14 Carbon Dioxide 25 mmol/L (22-29) 01/16/25 15:14 Anion Gap 18.5 (5-19) 01/16/25 15:14 BUN 14 mg/dL (6-20) 01/16/25 15:14 Creatinine 1.2 mg/dL (0.5-0.9) H 01/16/25 15:14 GFR Calculation 46.8 mL/min (90-130) L 01/16/25 15:14 Glucose 133 mg/dL (65-115) H 01/16/25 15:14 Calculated Osmolality 288 mOsm/kg (285-295) 01/16/25 15:14 Calcium 9.5 mg/dL (8.5-10.5) 01/16/25 15:14 Total Bilirubin 0.4 mg/dL (0.15-1.2) 01/16/25 15:14 AST 33 U/L (0-32) H 01/16/25 15:14 ALT 29 U/L (0-33) 01/16/25 15:14 Alkaline Phosphatase 207 U/L (35-105) H 01/16/25 15:14 Total Protein 8.2 g/dL (6.6-8.7) 01/16/25 15:14 Albumin 3.8 g/dL (3.5-5.2) 01/16/25 15:14 Globulin 4.4 g/dL (1.3-4.6) 01/16/25 15:14 Lipase 16 U/L (13-60) 01/16/25 15:14 Urine Color Yellow (Yellow) 01/16/25 15:03 Urine Appearance Clear (CLEAR) 01/16/25 15:03 Urine pH 5.0 (5-7) 01/16/25 15:03 Ur Specific [place] 1.034 (1.005-1.030) H 01/16/25 15:03 Urine Protein Trace (Negative) A 01/16/25 15:03 Urine Glucose (UA) 3+ (Normal) H 01/16/25 15:03 Urine Ketones Trace (Negative) 01/16/25 15:03 Urine Blood Negative (Negative) 01/16/25 15:03 Urine Nitrate Negative (Negative) 01/16/25 15:03 Urine Bilirubin Negative (Negative) 01/16/25 15:03 Urine Urobilinogen 0.2 mg/dL (Negative) 01/16/25 15:03 Ur Leukocyte Esterase Negative (Negative) 01/16/25 15:03 Urine RBC 0-2 /hpf (0-2) 01/16/25 15:03 Urine WBC 0-5 /hpf (0-5) 01/16/25 15:03 Ur Squamous Epith Cells 6-10 /hpf (0-5) 01/16/25 15:03 Amorphous Sediment Not Reportable 01/16/25 15:03 Urine Bacteria Trace /hpf (NONE) 01/16/25 15:03 Hyaline Casts 0.40 /lpf 01/16/25 15:03 C. difficile (PCR) Positive (Negative) H 01/16/25 15:03 All radiology interpretation(s) finalized by discharge Discharge Plan Discharge Patient Disposition: Home Clinical Impression: Clostridium difficile colitis Condition: Stable Prescriptions: New metronidazole 500 mg tablet 500 mg PO Q8H 14 Days Qty: 42 0RF No Action Jardiance 25 mg tablet 25 mg PO QAM Linzess 290 mcg capsule 290 mcg PO QAM montelukast [Singulair] 10 mg tablet 10 mg PO DAILY pantoprazole [Protonix] 40 mg tablet,delayed release (DR/EC) 40 mg PO BID ropinirole 1 mg tablet 2 mg PO BEDTIME meclizine [Dramamine (meclizine)] 25 mg tablet 25 mg PO TID PRN (Reason: motion sickness) Qty: 20 0RF ondansetron 4 mg tablet,disintegrating 4 mg PO Q6H PRN (Reason: nausea and vomiting) Qty: 12 0RF Rx Instructions: 340b please venlafaxine [Effexor XR] 150 mg capsule,extended release 24hr 150 mg PO QAM 30 Days Qty: 30 5RF metformin 1,000 mg 1,000 mg PO BID acetaminophen 500 mg Tablet 500 mg PO QID PRN (Reason: Pain) atorvastatin 40 mg 40 mg PO BEDTIME gabapentin 600 mg Tablet 800 mg PO TID Rx Instructions: Take 2 400mg capsules by mouth 3 times a day cetirizine 10 mg Tablet 10 mg PO DAILY baclofen 10 mg 5 mg PO BID docusate sodium 100 mg 100 mg PO BID epinephrine 0.3 mg 0.3 mg IM PRN PRN (Reason: anaphylaxis) venlafaxine 75 mg capsule,extended release 24hr 75 mg PO DAILY cholecalciferol (vitamin D3) 10 mcg (400 unit) Tablet See Rx Instructions .ROUTE .COMPLEX Rx Instructions: Patient does not know current dose. Patient states that she takes Vit D3 daily. insulin lispro [Humalog KwikPen Insulin] 100 unit/mL insulin pen See Rx Instructions .ROUTE .COMPLEX Rx Instructions: sliding scale dose subcutaneously tid with meals Mounjaro 15 mg/0.5 mL pen injector 15 mg SUBCUT Q7D Rx Instructions: Unknown doseage. hydroxyzine pamoate 50 mg capsule 50 mg PO BEDTIME nortriptyline 25 mg capsule 75 mg PO BEDTIME benztropine 1 mg tablet 1 mg PO BID aripiprazole 20 mg tablet 20 mg PO DAILY bumetanide 1 mg tablet 1 mg PO BID azelastine 137 mcg (0.1 %) Clay,Non-Aerosol 2 spray INTRANASAL BID PRN (Reason: Congestion) Rx Instructions: administer into each nostril albuterol sulfate 90 mcg/actuation HFA aerosol inhaler 90 mcg INHALATION Q4H PRN (Reason: Shortness Of Breath Or Wheezing) famotidine 40 mg tablet 40 mg PO BEDTIME methenamine hippurate 1 gram tablet 1 g PO BID ferrous sulfate [FeroSul] 325 mg (65 mg iron) tablet 325 mg PO EVERY OTHER DAY Rx Instructions: Take with vitamin C mometasone 50 mcg/actuation spray,non-aerosol 50 mcg INTRANASAL DAILY Rx Instructions: Administer 2 sprays in each nostril daily estradiol 0.01 % (0.1 mg/gram) cream 1 g VAGINAL PRN Rx Instructions: See administration instructions diclofenac sodium 1 % gel 2 g TOPICAL QID Rx Instructions: apply to affected area fesoterodine 4 mg Tablet Extended Release 24 Hr 4 mg PO DAILY Emgality Pen 120 mg/mL pen injector 120 mg SUBCUT Q30D prucalopride [Motegrity] 2 mg tablet 2 mg PO DAILY losartan 50 mg tablet 50 mg PO DAILY Qty: 30 0RF insulin glargine [Lantus Solostar U-100 Insulin] 100 unit/mL (3 mL) insulin pen 45 unit SUBCUT BID Qty: 3 0RF vancomycin 125 mg Capsule See Rx Instructions .ROUTE .COMPLEX Qty: 63 0RF Rx Instructions: 125 mcg 4 times daily x 4 days 125 mcg 2 times daily x 7 days 125 mcg once daily x 7days 125 mcg once every 3 days for 4 weeks Discharge Orders: Discharge ED (Routine); Ordered 01/16/25 Ordered By: Radha Guadarrama Referrals: Otilia Blackwood MD [Hospitalist, Hospitalist] - 4-7 days Andrea Ren DO [Primary Care Provider] - 4-7 days Discharge Diet: Advance as tolerated Discharge Activity: Resume usual activity Patient Instructions: C. Diff (Clostridioides Difficile) Infection (ED) Print Language: Yoruba Coding Level of Care Code ED Press Tender Star Signal for Margie Pichardo
[2025-01-16] MEDS: ondansetron 2 mg/ML SDV 2 mL 4 MG IVP (15:16)
[2025-01-16 15:17] VITALS: BP 129/76; PULSE 100; RESP 16; O2SAT 92
[2025-01-16 15:23] LABS: Hematocrit 39.1 % (36-47); Hemoglobin 11.70 g/dL (11.27-16.99); Mean Corpuscular HGB Conc 29.9 g/dL (30-55); Mean Corpuscular Hemoglobin 24.5 pg (27-33); Mean Corpuscular Volume 81.8 fl (85-98); Nucleated Red Blood Cells % 0 %; Platelet Count 296 10^3/cmm (157-399); Red Blood Count 4.78 10^6/uL (3.85-5.65); White Blood Count 9.18 10^3/uL (3.29-11.43)
[2025-01-16 15:38] LABS: Glucose Urine UA 3+ (Normal); Nitrate Urine Negative (Negative)
[2025-01-16 15:40] LABS: Alanine Aminotransferase 29 U/L (0-33); Albumin Level 3.8 g/dL (3.5-5.2); Alkaline Phosphatase 207 U/L (35-105); Anion Gap 18.5 (5-19); Aspartate Amino Transferase 33 U/L (0-32); Blood Urea Nitrogen 14 mg/dL (6-20); Calcium 9.5 mg/dL (8.5-10.5); Carbon Dioxide 25 mmol/L (22-29); Chloride 98 mmol/L (98-107); Globulin 4.4 g/dL (1.3-4.6); Glucose 133 mg/dL (65-115); Lipase 16 U/L (13-60); Osmolality Calculated 288 mOsm/kg (285-295); Potassium 3.5 mmol/L (3.5-5.1); Sodium 138 mmol/L (136-145); Total Protein 8.2 g/dL (6.6-8.7)
[2025-01-16 15:43] LABS: Add Urine Microscopic? YES
[2025-01-16 15:44] LABS: Creatinine Clr Calc Pharmacy 70.5368
[2025-01-16] MEDS: iohexol 350 mg/mL 500 mL Btl (per mL) IV (15:49)
[2025-01-16 16:07] LABS: C.Diff PCR (Lab) POSITIVE (Negative)
[2025-01-16 16:10] LABS: Specific Gravity, Urine 1.034 (1.005-1.030)
[2025-01-16 16:21] VITALS: BP 137/70; PULSE 97; RESP 16; O2SAT 91
[2025-01-16 16:47] VITALS: BP 137/70; PULSE 98; RESP 16; O2SAT 92
[2025-01-16 17:11] LABS: Clostridioides Difficile Toxin POSITIVE (Negative)
--- NOTE | 2025-01-18 07:42 | DCPLANNER ---
messaged ID for er f/u
== END 2025-01-16 16:56 | disposition home or self-care (01) ==
PROVIDERS: Emergency Provider Emergency Medicine; PCP Family Medicine
DX: A04.72 Enterocolitis due to Clostridium difficile, not specified as recurrent (principal); Z79.84 Long term (current) use of oral hypoglycemic drugs; Z79.4 Long term (current) use of insulin; Z87.891 Personal history of nicotine dependence; J44.9 Chronic obstructive pulmonary disease, unspecified; E11.9 Type 2 diabetes mellitus without complications; I11.0 Hypertensive heart disease with heart failure; I50.30 Unspecified diastolic (congestive) heart failure
CPT/HCPCS: 36415; 74177; 80053; 81001; 82274; 83630; 83690; 85025; 87045; 87177; 87209; 87324; 87427; 87449; 87493; 96361; 96374; 99285; J2405; J7030

== ENCOUNTER 2025-05-16 11:52 | Emergency (ER) | payer MEDICARE, MEDICAID, SELFPAY ==
[2024-11-06 13:58] VITALS: BP 135/72; BMI 48.0
--- OUTSIDE RECORDS SUMMARY | 2025-05-12 11:30 | XMS_ITS | Encounter Summary ---
Author Organization [facility] Address [address] [place] [address] Care Team Providers Care Fruit Vendor Name Role Phone Andrea Ren Primary Care Provider [phone] Reason for Visit * Reason Comments Immunization/Injection Encounter Details Date Type Department Care Team (Latest Contact Info) Description 05/12/2025 11:30 AM INTERPRETER Clinical Support [address] [phone] Need for immunization against influenza (Primary Dx) Social History Tobacco Use Types Packs/Day Years Used Date Smoking Tobacco: Former Cigarettes 1 Q uit: 09/08/1988 Passive Smoke Exposure: Past Smokeless Tobacco: Never Alcohol Use Standard Drinks/Week Comments No 0 (1 standard drink = 0.6 oz pur e alcohol) [facility] Utilities Answer Date Recorded In the past 12 months has [employer] Physical, gas, oil, or water [employer] threatened to shut off services in your [...] How often do you attend chur or mosque services? 1 to 4 times per year 11/01/2023 Do you belong to any clubs o r organizations such as voodoo groups, unions, fraternal or athletic groups, or [...] on file Legal Sex Female 2:33 AM INTERPRETER Gender Identity Not on file Sexual Orientation Not on file documented as of this encounter Plan of Treatment Upcoming Encounters Date Type Department Care Team (Late st Contact Info) Description 06/02/2025 3:50 PM INTERPRETER Office Visit [facility] [address] [place] [phone] Danita Smith, DIRECTOR [employer] [address] [place] [phone] 06/28/2025 11:20 AM INTERPRETER Office Visit [facility] [address] [place] [address] Ora De Anda PA [address] [place] [address] 07/12/2025 10:45 AM INTERPRETER Office Visit [facility] [address] [phone] Dorys Cano, [facility] [address] [phone] 09/22/2025 12:20 PM CDT Hospital Encounter [facility] Endoscopy [address] [place] [address] Aayush Jc MD [address] [place] [address] 09/22/2025 12:20 PM CDT - 09/22/2025 12:40 PM CDT Surgery [facility] Endoscopy [address] [place] [address] Aayush Jc MD [address] [place] [phone] COLONOSCOPY 09/29/2025 10:30 AM CDT Office Visit [facility] Gastroenter[facility]- [place] [address] [place] [phone] Corin De Leon NP [address] [place] [address] 11/11/2025 10:50 AM CDT Office Visit [facility] OBBECKY-Ashu Youngernn Pearson [address] [place] [address] Melissa Anand MD [address] [place] [phone] 01/04/2026 10:00 AM CDT [facility] Visit [facility] [address] [facility] [address] [place] [phone] Cristóbal Rush MD [address] [facility] [address] [place] [phone] Gavi Ballard, DIRECTOR [employer] [address] [facility] [address] [place] [phone] Scheduled Procedures Name Priority Associated Diagnoses Date/Ti me COLONOSCOPY Iron deficiency anemia, unspecified iron deficiency anemia type Chronic idiopathic constipation Colon cancer screening 09/22/2025 12:20 PM CDT documented as of this encounter Visit Diagnoses Diagnosis Need for immunization against influenza- Primary Need for prophylactic vaccination and inoculation against influenza documented in this encounter Additional Health Concerns Assessment Noted Time PHQ-9 Depression Total Score: 4 05/05/20 25 10:00 AM INTERPRETER documented as of this encounter Care Teams Fruit Vendor Relationship Specialty Start Date End Date Andrea Ren DO [address], [place] [address] PCP - General Family Practice 08/03/21 documented as of this encounter
[2025-05-16] VITALS (9 sets, daily range): BP systolic 118–148; BP diastolic 49–73; PULSE 101–114; RESP 18–20; TEMP 37.2; O2SAT 91–96; BMI 45.1
--- OUTSIDE RECORDS SUMMARY | 2025-05-16 11:56 | XMS_ITS | Encounter Summary ---
Author Organization [facility] Address [address] [place] [address] Care Team Providers Care Associate Director Of Nursing Name Role Phone Randy Ren MD Primary Care Provider Reason for Referral * MRI (Routine) - Closed Specialty Diagnoses / Procedures Referred By Liz herbert Referred To Contact Diagnoses Rotator cuff tendonitis, left Procedures MRI SHOULDER WO CONTRAST LEFT Lamin Roca NP [address] [place] [address] Phone: tel: fax: [facility] Pre-Registration [place] CALL TO MAKE APPOINTMENT ONLY [address] [place] [address] Phone: tel: fax: Referral ID Status Reason Start Date Expiration Date V isits Requested Visits Authorized [id number] Closed [facility] TO SCHEDULE (SGF) 04/23/2018 05/23/2018 1 1 NG SPREADER Encounter Details Date Type Department Care Team (Latest Contact Info) Description 04/22/2018 Ancillary Orders [facility] Pre-Registration [place] CALL TO MAKE APPOINTMENT ONLY [address] [place] [address] Lamin Roca NP [address] [place] [phone] Rotator cuff tendonitis, left Social History Tobacco Use Types Packs/Day Years Used Date Smoking Tobacco: Former Cigarettes 1 0 09/09/1987 - 09/08/1988 Smokeless Tobacco: Never Alcohol Use Standard Drinks/Week Comments No 0 (1 standard drink = 0.6 oz pur e alcohol) Comments No Sex and Gender Information Value Date Recorded Sex Assigned at Not on file Legal Sex Female 6:05 AM AWNING SPREADER Gender Identity Not on file Sexual Orientation Not on file Occupation Industry Job Start Date Job End Date Not on file Not on file Not on file Not on file documented as of this encounter Plan of Treatment Not on file documented as of this encounter Results * MRI SHOULDER WO CONTRAST LEFT (05/01/2018 2:16 PM AWNING SPREADER) Anatomical Region Laterality Modality Upper Extremity Magnetic Resonan ce 05/01/2018 2:16 PM AWNING SPREADER Impressions 05/13/2018 4:01 PM AWNING SPREADER IMPRESSION: Please see below. Exam: MRI SHOULDER [...] rotator cuff or definite labral pathology identified. [id number] Narrative Procedure Note Maria A Fitzpatrick MD [...] rotator cuff or definite labral pathology identified. [id number] Lamin Roca NP MR ORDERABLES Final Resu lt documented in this encounter Visit Diagnoses Diagnosis Rotator cuff tendonitis, left Rotator cuff tendonitis, left documented in this encounter Additional Health Concerns Infection Onset Date Last Indicated Resolved Time MRSA Comment:Resolved 07/30/2018, Infection Prevention Nares 12/15/15 12/16/2015 12/16/2015 07/30/2018 10:47 AM AWNING SPREADER R/O COVID-19 03/01/2020 03/01/2020 03/03/2020 1:01 AM CDT Assessment Noted Time PHQ-9 Depression Total Score: 6 08/24/19 17 8:00 AM AWNING SPREADER documented as of this encounter Care Teams Associate Director Of Nursing Relationship Specialty Start Date End Date Randy Ren MD [address] [address] PCP - General Family Practice 01/25/15 documented as of this encounter
--- OUTSIDE RECORDS SUMMARY | 2025-05-16 11:56 | XMS_ITS | Encounter Summary ---
Author Organization [facility] Address [address] [place] [address] Care Team Providers Care Inspector Mechanical Name Role Phone Randy Ren MD Primary Care Provider [phone] Encounter Details Date Type Department Care Team (Latest Contact Info) Description 06/11/2002 Outpatient Historical [address] [phone] Alondra Mehta MD [address] [place] [address], [phone] ESOPHAGEAL REFLUX (Primary Dx); DYSPHAGIA Social History Tobacco Use Types Packs/Day Years Used Date Smoking Tobacco: Never Assessed Comments Unknown Sex and Gender Information Value Date Recorded Sex Assigned at Not on file Legal Sex Female 6:05 AM DESIGN ENGINEER PRODUCTS Gender Identity Not on file Sexual Orientation Not on file documented as of this encounter Plan of Treatment Not on file documented as of this encounter Visit Diagnoses Diagnosis Esophageal reflux- Primary Dysphagia documented in this encounter Additional Health Concerns Infection Onset Date Last Indicated Resolved Time MRSA Comment:Resolved 07/30/2018, Infection Prevention Nares 12/15/15 12/16/2015 12/16/2015 07/30/2018 10:47 AM DESIGN ENGINEER PRODUCTS R/O COVID-19 03/01/2020 03/01/2020 03/03/2020 1:01 AM CDT documented as of this encounter Care Teams Inspector Mechanical Relationship Specialty Start Date End Date Randy Ren MD [address] [place] [address] PCP - General Family Practice 01/25/15 documented as of this encounter
--- OUTSIDE RECORDS SUMMARY | 2025-05-16 11:56 | XMS_ITS | Encounter Summary ---
Author Organization [facility] Address [address] [place] [address] Care Team Providers Care Manual Lathe Machinist Name Role Phone Randy Ren MD Primary Care Provider [phone] Encounter Details Date Type Department Care Team (Latest Contact Info) Description 09/09/2015 Ancillary Orders [facility] [address] [facility] [address] [place] [address] Randy Ren MD [address] [place] [address] Inconclusive mammography (Primary Dx) Social History Tobacco Use Types Packs/Day Years Used Date Smoking Tobacco: Former Cigarettes 1 0 09/09/1987 - 09/08/1988 Smokeless Tobacco: Never Alcohol Use Standard Drinks/Week Comments No 0 (1 standard drink = 0.6 oz pur e alcohol) Comments No Sex and Gender Information Value Date Recorded Sex Assigned at Not on file Legal Sex Female 6:05 AM ADMIN PROG COORD Gender Identity Not on file Sexual Orientation [...] Nares 12/15/15 12/16/2015 12/16/2015 07/30/2018 10:47 AM ADMIN PROG COORD R/O COVID-19 03/01/2020 03/01/2020 03/03/2020 1:01 AM CDT documented as of this encounter Care Teams Manual Lathe Machinist Relationship Specialty Start Date End Date Randy Ren MD [address] [place] [address] PCP - General Family Practice 01/25/15 documented as of this encounter
--- OUTSIDE RECORDS SUMMARY | 2025-05-16 11:56 | XMS_ITS | Encounter Summary ---
Author Organization [facility] Address [address] [place] [address] Care Team Providers Care Material Controller Name Role Phone Randy Ren MD Primary Care Provider Encounter Details Date Type Department Care Team (Latest Contact Info) Description 09/06/2003 Outpatient Historical [facility] Medicine [place] [address] [place] [phone] Cachorro Mackay MD [address] [place] [phone] ALLERGIC RHINITIS NOS (Primary Dx); ACUTE FRONTAL SINUSITIS Social History Tobacco Use Types Packs/Day Years Used Date Smoking Tobacco: Never Assessed Comments Unknown Sex and Gender Information Value Date Recorded Sex Assigned at Not on file Legal Sex Female 6:05 AM OXYGEN EQUIPMENT PREPARER Gender Identity Not on file Sexual Orientation Not on file documented as of this encounter Plan of Treatment Not on file documented as of this encounter Visit Diagnoses Diagnosis Allergic rhinitis, cause unspecified- Primary Acute frontal sinusitis documented in this encounter Additional Health Concerns Infection Onset Date Last Indicated Resolved Time MRSA Comment:Resolved 07/30/2018, Infection Prevention Nares 12/15/15 12/16/2015 12/16/2015 07/30/2018 10:47 AM OXYGEN EQUIPMENT PREPARER R/O COVID-19 03/01/2020 03/01/2020 03/03/2020 1:01 AM CDT documented as of this encounter Care Teams Material Controller Relationship Specialty Start Date End Date Randy Ren MD [address] [place] [address] PCP - General Family Practice 01/25/15 documented as of this encounter
--- OUTSIDE RECORDS SUMMARY | 2025-05-16 11:56 | XMS_ITS | Encounter Summary ---
Author Organization [facility] Address [address] [place] [address] Care Team Providers Care Integration Lead Name Role Phone Randy Ren MD Primary Care Provider [phone] Encounter Details Date Type Department Care Team (Late st Contact Info) Description 06/19/2015 Nurse Triage Report [id number] ABSTRACTION Erica Lugo, RN Social History Tobacco Use Types Packs/Day Years Used Date Smoking Tobacco: Former Cigarettes 0 Q uit: 09/08/1988 Smokeless Tobacco: Never Alcohol Use Standard Drinks/Week Comments No 0 (1 standard drink = 0.6 oz pur e alcohol) Comments No Sex and Gender Information Value Date Recorded Sex Assigned at Not on file Legal Sex Female 6:05 AM OUTSIDE SALES EXECUTIVE Gender Identity Not on file Sexual [...] touch to a localized area. ? YES IDE SALES EXECUTIVE documented in this encounter Plan of Treatment Not on file documented as of this encounter Visit Diagnoses Not on filedocumented in this encounter Additional Health Concerns Infection Onset Date Last Indicated Resolved Time MRSA Comment:Resolved 07/30/2018, Infection Prevention Nares 12/15/15 12/16/2015 12/16/2015 07/30/2018 10:47 AM OUTSIDE SALES EXECUTIVE R/O COVID-19 03/01/2020 03/01/2020 03/03/2020 1:01 AM CDT documented as of this encounter Care Teams Integration Lead Relationship Specialty Start Date End Date Randy Ren MD [address] [address] PCP - General Family Practice 01/25/15 documented as of this encounter
--- OUTSIDE RECORDS SUMMARY | 2025-05-16 11:56 | XMS_ITS | Encounter Summary ---
Author Organization [facility] Address [address] [place] [address] Care Team Providers Care Inspector Machine Cut Glass Name Role Phone Randy Ren MD Primary Care Provider [phone] Encounter Details Date Type Department Care Team (Latest Contact Info) Description 10/06/2003 Outpatient Historical [address] [phone] Alondra Mehta MD [address] [place] [address], [address] TRACHEA/BRONCHUS DIS NEC (Primary Dx); ACUTE BRONCHITIS Social History Tobacco Use Types Packs/Day Years Used Date Smoking Tobacco: Never Assessed Comments Unknown Sex and Gender Information Value Date Recorded Sex Assigned at Not on file Legal Sex Female 6:05 AM COMMUNICATIONS STATION MANAGER Gender Identity Not on file Sexual [...] Nares 12/15/15 12/16/2015 12/16/2015 07/30/2018 10:47 AM COMMUNICATIONS STATION MANAGER R/O COVID-19 03/01/2020 03/01/2020 03/03/2020 1:01 AM CDT documented as of this encounter Care Teams Inspector Machine Cut Glass Relationship Specialty Start Date End Date Randy Ren MD [address] [place] [address] PCP - General Family Practice 01/25/15 documented as of this encounter
--- OUTSIDE RECORDS SUMMARY | 2025-05-16 11:56 | XMS_ITS | Encounter Summary ---
Author Organization [facility] Address [address] [place] [address] Care Team Providers Care Instrumental Teacher Name Role Phone Randy Ren MD Primary Care Provider [phone] Reason for Referral * Outpatient Services (Routine) - Closed Specialty Diagnoses / Procedures Referred By Contac t Referred To Contact Diagnoses Encounter for screening mammogram for malignant neoplasm of breast Procedures MAMMO DIGITAL SCREEN BILAT Randy Ren MD [address] [place] [address] Phone: tel: fax: Referral ID Status Reason Start Date Expiration Date Visits Re quested Visits Authorized [id number] Closed 08/18/2015 09/17/2016 1 1 TARY POLICE OFFICER Encounter Details Date Type Department Care Team (Latest Contact Info) Description 08/18/2015 Ancillary Orders [facility] Pre-Registration [place] CALL TO MAKE APPOINTMENT ONLY [address] [place] [address] Randy Ren MD [address] [place] [address] Encounter for screening mammogram for [...] on file Legal Sex Female 6:05 AM MILITARY POLICE OFFICER Gender Identity Not on file Sexual [...] of bilateral axillary findings with focused ultrasound. [id number] Narrative 09/09/2015 11:28 AM CDT BILATERAL SCREENING [...] by the Computer Aided Detection System (CAD), Barnana ImageChecker, Version 8.3. Randy Ren MD MAMMO [...] Nares 12/15/15 12/16/2015 12/16/2015 07/30/2018 10:47 AM MILITARY POLICE OFFICER R/O COVID-19 03/01/2020 03/01/2020 03/03/2020 1:01 AM CDT documented as of this encounter Care Teams Instrumental Teacher Relationship Specialty Start Date End Date Randy Ren MD [address], [place] [address] PCP - General Family Practice 01/25/15 documented as of this encounter
--- OUTSIDE RECORDS SUMMARY | 2025-05-16 11:56 | XMS_ITS | Encounter Summary ---
Author Organization [facility] Address [address] [place] [address] Care Team Providers Care Reed Press Feeder Name Role Phone Randy Ren MD Primary Care Provider [phone] Encounter Details Date Type Department Care Team (Latest Contact Info) Description 01/31/2004 Outpatient Historical [facility] Medicine [place] [address] [phone] Gregoria Olivarez MD [address] [place] [address] LUMBAGO (Primary Dx); HYPERTENSION NOS Social History Tobacco Use Types Packs/Day Years Used Date Smoking Tobacco: Never Assessed Comments Unknown Sex and Gender Information Value Date Recorded Sex Assigned at Not on file Legal Sex Female 6:05 AM MECHANICAL SPECIALIST Gender Identity Not on file Sexual Orientation Not on file documented as of this encounter Plan of Treatment Not on file documented as of this encounter Visit Diagnoses Diagnosis Lumbago- Primary Unspecified essential hypertension documented in this encounter Additional Health Concerns Infection Onset Date Last Indicated Resolved Time MRSA Comment:Resolved 07/30/2018, Infection Prevention Nares 12/15/15 12/16/2015 12/16/2015 07/30/2018 10:47 AM MECHANICAL SPECIALIST R/O COVID-19 03/01/2020 03/01/2020 03/03/2020 1:01 AM CDT documented as of this encounter Care Teams Reed Press Feeder Relationship Specialty Start Date End Date Randy Ren MD [address] [place] [address] PCP - General Family Practice 01/25/15 documented as of this encounter
--- OUTSIDE RECORDS SUMMARY | 2025-05-16 11:56 | XMS_ITS | Encounter Summary ---
Author Organization [facility] Address [address] [place] [address] Care Team Providers Care Assembler Arranger Name Role Phone Randy Ren MD Primary Care Provider [phone] Encounter Details Date Type Department Care Team (Latest Contact Info) Description 08/25/2002 Outpatient Historical [facility] Gastroenterology- [address] [place] [phone] Nehemiah Rodríguez MD [address] [facility] [address] [place] [address] ESOPHAGEAL REFLUX (Primary Dx) Social History Tobacco Use Types Packs/Day Years Used Date Smoking Tobacco: Never Assessed Comments Unknown Sex and Gender Information Value Date Recorded Sex Assigned at Not on file Legal Sex Female 6:05 AM 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 DRIER OPERATOR Gender Identity Not on file Sexual Orientation Not on file documented as of this encounter Plan of Treatment Not on file documented as of this encounter Visit Diagnoses Diagnosis Esophageal reflux- Primary documented in this encounter Additional Health Concerns Infection Onset Date Last Indicated Resolved Time MRSA Comment:Resolved 07/30/2018, Infection Prevention Nares 12/15/15 12/16/2015 12/16/2015 07/30/2018 10:47 AM TUMBLER DRIER OPERATOR R/O COVID-19 03/01/2020 03/01/2020 03/03/2020 1:01 AM CDT documented as of this encounter Care Teams Assembler Arranger Relationship Specialty Start Date End Date Randy Ren MD [address] [place] [address] PCP - General Family Practice 01/25/15 documented as of this encounter
--- OUTSIDE RECORDS SUMMARY | 2025-05-16 11:56 | XMS_ITS | Encounter Summary ---
Author Organization [facility] Address [address] [place] [address] Care Team Providers Care Meat And Seafood Manager Name Role Phone Randy Ren MD Primary Care Provider [phone] Encounter Details Date Type Department Care Team (Latest Contact Info) Description 12/29/2003 Outpatient Historical [facility] Medicine [place] [address] [phone] Gregoria Olivarez MD [address] [place] [address] URIN TRACT INFECTION NOS (Primary Dx) Social History Tobacco Use Types Packs/Day Years Used Date Smoking Tobacco: Never Assessed Comments Unknown Sex and Gender Information Value Date Recorded Sex Assigned at Not on file Legal Sex Female 6:05 AM LIQUOR DEPARTMENT MANAGER Gender Identity Not on file Sexual Orientation Not on file documented as of this encounter Plan of Treatment Not on file documented as of this encounter Visit Diagnoses Diagnosis Urinary tract infection, site not specified- Primary documented in this encounter Additional Health Concerns Infection Onset Date Last Indicated Resolved Time MRSA Comment:Resolved 07/30/2018, Infection Prevention Nares 12/15/15 12/16/2015 12/16/2015 07/30/2018 10:47 AM LIQUOR DEPARTMENT MANAGER R/O COVID-19 03/01/2020 03/01/2020 03/03/2020 1:01 AM CDT documented as of this encounter Care Teams Meat And Seafood Manager Relationship Specialty Start Date End Date Randy Ren MD [address] [place] [address] PCP - General Family Practice 01/25/15 documented as of this encounter
--- OUTSIDE RECORDS SUMMARY | 2025-05-16 11:56 | XMS_ITS | Clinical Summary ---
Author Organization [facility] Address [address] [place] [address] Care Team Providers Care Workday Consultant Name Role Phone Randy Ren MD Primary Care Provider [phone] Allergies Active Allergy Reactions Criticality Noted Date [...] PAIN 25 Tablet 3 12/17/19 Active Insulin Doucette, Disposable, (TechLITE Pen Needle) 31 gauge x [...] hyperglycemia, with long-term current use of insulin ([facility]) Inject 1.8 mg by subcutaneous injection daily. [...] 10/04/19 Active fluticasone propionate (FLONASE) 50 mcg/spray [place], Suspension nasal inhalerIndicatio ns:Seasonal allergic rhinitis due [...] capsule TAKE 2 CAPSULES BY MOUTH IN YIELD ANALYST 60 Capsule 2 12/13/19 21 Active Active [...] How often do you attend chur or adventism services? Never 09/01/2020 Do you belong to any clubs o r organizations such as mandaen groups, unions, fraternal or athletic groups, or [...] on file Legal Sex Female 6:05 AM TRIP RIDER Gender Identity Not on file Sexual Orientation [...] CDT Oxygen Saturation 97% 04/26/2020 2:39 PM TRIP RIDER Inhaled Oxygen Concentration - - Weight 147.4 [...] - T d or Tdap) 04/29/2025 04/29/2015 Preventative Visit-Managed Medicaid 07/03/2025 07/02/2024, 09/04/2022, 09/01/2020, Additional history exists DIABETES ANNUAL RETINAL EXAM 05/10/2026, 05/06/2024, 05/02/2023, Additional history exists COLORECTAL SCREENING 06/16/2034 06/16/2024, 11/21/2018, 11/21/2018, Additional history exists Colorectal Cancer Screening 06/16/2034 Medical Devices Implanted Type Area Electronic Equipment Installer Device Identifier Shelf Expiration Date Model / Serial / Lot Hemostatic Gelfoam Spng 12-7mm [id number] - Csc - Sna Implanted:Qty: 1 on 01/03/2016 by Thiago Teran MD at [facility] Hemostatic Right: Spine Lumbar PFIZER- PHARM 04/16/2018 [id number] / NA / [id number] Hemostatic Gelfoam Powder 1gm [id number] - Sna Implanted:Qty: 1 on 01/03/2016 by Thiago Teran MD at [facility] Hemostatic Right: Spine Lumbar PFIZER- PHARM 06/16/2018 [id number] / NA / [id number] Procedures Procedure Name Priority Date/Time Associated Diagnosis Comments HEMOGLOBIN A1C Routine 12/21/2020 12:03 PM CDT Type 2 diabetes mellitus treated with insulin ([facility]) MICROALBUMIN/CREATIN INE RATIO, RANDOM UR Routine 09/01/2020 1:00 PM CDT Type 2 diabetes mellitus treated with insulin ([facility]) Stage 3a chronic kidney disease ([facility]) Hypovitaminosis D LIPID PANEL Routine 04/18/2020 MAMMO 3D JAYLON SCREEN BILAT W OR WO CAD Routine 01/28/2020 12:14 PM CDT Encounter for screening mammogram for malignant neoplasm of breast COLONOSCOPY REPORT 11/21/2018 9: 21 AM CDT POC OCCULT BLOOD UP TO 3 CARDS Routine 07/31/2017 11:51 AM TRIP RIDER Screening for colon cancer from Last 3 Months or Most Recently Relevant to Health Maintenance Results * (ABNORMAL) HEMOGLOBIN A1C (12/21/2020 12:03 PM CDT) HEMOGLOBIN A1C 7.7(H) <5.7 % of total Hgb [employer] [place] Comment: For someone without known diabetes, a [...] children. FASTING:NO FASTING: NO Test Performed at: [facility] [address] [place] [address] Antwan Guadalupe D.O., MPH Blood 12/21/2020 12:0 3 PM CDT 12/21/2020 12:05 PM CDT us Ora HUNTER CHEMISTRY ORDERABLES Final Re sult [facility] [employer] [place] [address] [place] [address] * (ABNORMAL) MICROALBUMIN/CREATININE RATIO, RANDOM UR (09/01/2020 1:00 PM CDT) MICROALBUMIN, URINE 6.2 No Reference Range mg/dL 09/01/2020 2:14 PM CDT [facility] CREATININE, URINE 236.1(H) 29.0 - 226.0 mg/dL 09/01/2020 2:14 PM CDT [facility] Comment:Reference Range vari es with fluid intake and diet. MICROALBUMIN/ CREAT RATIO, UR 26.3(H) <25.0 mg/g 09/01/2020 2:14 PM CDT [facility] Urine URINE SPECIMEN OBTAINED BY CLEAN CATCH PROCEDURE / Unknown Collection / Unknown 09/01/2020 1:00 PM CDT 09/01/2020 1:11 PM CDT Narrative [facility] - 09/01/2020 2:14 PM CDT Condition Microalbumin/Creat ratio Normal Males <17 Normal Females <25 Microalbuminuria Males 17-299 Microalbuminuria Females 25-299 Overt proteinuria >=300 Ora HUNTER URINE ORDERABLES Final Result [facility] CLIA# [id number] [address] [place] [address] * LIPID PANEL (04/18/2020) ABSTRACTED CHOLESTEROL 122 EXTERNAL LAB ABSTRACTED TRIGLYCERIDE 142 EXTERNAL LAB ABSTRACTED HDL 35 EXTERNAL LAB ABSTRACTED LDL CALCULATED 59 EXTERNAL LAB CHOLESTEROL EXTERNAL LAB TRIGLYCERIDE EXTERNAL LAB HDL EXTERNAL LAB LDL CALCULATED EXTERNAL LAB Blood 04/18/2020 Abstract Spg Provider CHEMISTRY ORDERABLES Final Result Performing Organization Address [facility] Co de Phone Number EXTERNAL LAB * [...] Rodríguez MD - 11/21/2018 9:20 AM CDT [facility] GI Patient Name: Maya Figueroa Procedure [...] 9:08:01 AM Scope Out: 9:18:45 AM [address] [place], [place] Nehemiah Rodríguez MD GI PROCEDURE ORDERABLES Fin al Result * (ABNORMAL) POC OCCULT BLOOD UP TO 3 CARDS (07/31/2017 11:51 AM TRIP RIDER) OCCULT BLOOD 1 CARD POC Negative Negative [facility] OCCULT BLOOD 2 CARD POC Negative Negative [facility] OCCULT BLOOD 3 CARD POC Invalid Result(A) Negative [facility] Comment:no specimen on card INTERNAL KIT QC Pass Pass [facility] CARD LOT NUMBER POC [id number] [facility] CARD EXPIRATION DATE POC 02-15-2018 [facility] DEVELOPER LOT NUMBER POC [id number] [facility] DEVELOPER EXPIRATION DATE POC 12-16-2019 [facility] Stool STOOL SPECIMEN / Unknown 07/31/2017 11:51 AM TRIP RIDER Danita Smith TICKET COLLECTOR POINT OF CARE TESTING Final R esult Performing Organization Address City/State/[facility] Co de Phone Number [facility] CLIA# [id number] [address] [place] [address] from Last 3 Months or Most Recently Relevant to Health Maintenance Insurance [place] Medicaid RX OMER PLANS (INTERNAL) [facility] Internal Plans [place]ID [place] Advance Directives For more information, please contact: [phone] * Full Code (Latest Code Status on [...] 7:17 PM 01/04/2016 5:57 PM Care Teams Workday Consultant Relationship Specialty Start Date End Date Randy Ren MD [address] [place] [address] PCP - General Family Practice 01/25/15
--- OUTSIDE RECORDS SUMMARY | 2025-05-16 11:56 | XMS_ITS | Encounter Summary ---
Author Organization [facility] Address [address] [place] [address] Care Team Providers Care Acid Regenerator Name Role Phone Randy Ren MD Primary Care Provider [phone] Encounter Details Date Type Department Care Team (Latest Contact Info) Description 02/08/2004 Outpatient Historical [facility] Jacob Rekha [address] [place] [address] Gregoria Olivarez MD [address] [place] [address] LUMBAGO (Primary Dx) Social History Tobacco Use Types Packs/Day Years Used Date Smoking Tobacco: Never Assessed Comments Unknown Sex and Gender Information Value Date Recorded Sex Assigned at Not on file Legal Sex Female 6:05 AM DENTAL TECHNICIAN APPRENTICE Gender Identity Not on file Sexual Orientation Not on file documented as of this encounter Plan of Treatment Not on file documented as of this encounter Visit Diagnoses Diagnosis Lumbago- Primary documented in this encounter Additional Health Concerns Infection Onset Date Last Indicated Resolved Time MRSA Comment:Resolved 07/30/2018, Infection Prevention Nares 12/15/15 12/16/2015 12/16/2015 07/30/2018 10:47 AM DENTAL TECHNICIAN APPRENTICE R/O COVID-19 03/01/2020 03/01/2020 03/03/2020 1:01 AM CDT documented as of this encounter Care Teams Acid Regenerator Relationship Specialty Start Date End Date Randy Ren MD [address] [place] [address] PCP - General Family Practice 01/25/15 documented as of this encounter
--- OUTSIDE RECORDS SUMMARY | 2025-05-16 11:56 | XMS_ITS | Encounter Summary ---
Author Organization [facility] Address [address] [place] [address] Care Team Providers Care Neuropsychiatrist Name Role Phone Randy Ren MD Primary Care Provider [phone] Encounter Details Date Type Department Care Team (Latest Contact Info) Description 10/13/2003 Outpatient Historical [address] [phone] Alondra Mehta MD [address] [place] [address], [address] HEMATURIA (Primary Dx); PNEUMONIA, ORGANISM NOS; HYPOGLYCEMIA NOS Social History Tobacco Use Types Packs/Day Years Used Date Smoking Tobacco: Never Assessed Comments Unknown Sex and Gender Information Value Date Recorded Sex Assigned at Not on file Legal Sex Female 6:05 AM WEB GRAPHIC DESIGNER Gender Identity Not on file Sexual Orientation [...] Nares 12/15/15 12/16/2015 12/16/2015 07/30/2018 10:47 AM WEB GRAPHIC DESIGNER R/O COVID-19 03/01/2020 03/01/2020 03/03/2020 1:01 AM CDT documented as of this encounter Care Teams Neuropsychiatrist Relationship Specialty Start Date End Date Randy Ren MD [address], [place] [address] PCP - General Family Practice 01/25/15 documented as of this encounter
--- OUTSIDE RECORDS SUMMARY | 2025-05-16 11:56 | XMS_ITS | Encounter Summary ---
Author Organization [facility] Address [address] [place] [address] Care Team Providers Care Meat Counter Worker Name Role Phone Randy Ren MD Primary Care Provider [phone] Encounter Details Date Type Department Care Team (Latest Contact Info) Description 11/01/2003 Outpatient Historical [address] [phone] Alondra Mehta MD [address] [place] [address], [address] DERMATITIS NOS (Primary Dx); URTICARIA NOS Social History Tobacco Use Types Packs/Day Years Used Date Smoking Tobacco: Never Assessed Comments Unknown Sex and Gender Information Value Date Recorded Sex Assigned at Not on file Legal Sex Female 6:05 AM CORONER TECHNICIAN Gender Identity Not on file Sexual [...] Nares 12/15/15 12/16/2015 12/16/2015 07/30/2018 10:47 AM CORONER TECHNICIAN R/O COVID-19 03/01/2020 03/01/2020 03/03/2020 1:01 AM CDT documented as of this encounter Care Teams Meat Counter Worker Relationship Specialty Start Date End Date Randy Ren MD [address] [place] [address] PCP - General Family Practice 01/25/15 documented as of this encounter
--- OUTSIDE RECORDS SUMMARY | 2025-05-16 11:56 | XMS_ITS | Encounter Summary ---
Author Organization [facility] Address [address] [place] [address] Care Team Providers Care Reservoir Engineer Name Role Phone Randy Ren MD Primary Care Provider [phone] Encounter Details Date Type Department Care Team (Latest Contact Info) Description 12/08/2003 Outpatient Historical [facility] Medicine [place] [address] [phone] Gregoria Olivarez MD [address] [place] [address] CRAMP IN LIMB (Primary Dx); HYPOTHYROIDISM NOS; NEUROTIC DEPRESSION Social History Tobacco Use Types Packs/Day Years Used Date Smoking Tobacco: Never Assessed Comments Unknown Sex and Gender Information Value Date Recorded Sex Assigned at Not on file Legal Sex Female 6:05 AM SUPERINTENDENT DRIVERS Gender Identity Not on file Sexual Orientation [...] 12/15/15 12/16/2015 12/16/2015 07/30/2018 10:47 AM SUPERINTENDENT DRIVERS R/O COVID-19 03/01/2020 03/01/2020 03/03/2020 1:01 AM CDT documented as of this encounter Care Teams Reservoir Engineer Relationship Specialty Start Date End Date Randy Ren MD [address] [place] [address] PCP - General Family Practice 01/25/15 documented as of this encounter
--- OUTSIDE RECORDS SUMMARY | 2025-05-16 11:56 | XMS_ITS | Encounter Summary ---
Author Organization [facility] Address [address] [place] [address] Care Team Providers Care Manager Application Name Role Phone Randy Ren MD Primary Care Provider [phone] Encounter Details Date Type Department Care Team (Latest Contact Info) Description 02/04/2004 Outpatient Historical [facility] Imaging Services [address] [place] [address] Gregoria Olivarez MD [address] [place] [address] LUMBAGO (Primary Dx) Social History Tobacco Use Types Packs/Day Years Used Date Smoking Tobacco: Never Assessed Comments Unknown Sex and Gender Information Value Date Recorded Sex Assigned at Not on file Legal Sex Female 6:05 AM MULTIPLE PUNCH PRESS OPERATOR Gender Identity Not on file Sexual Orientation Not on file documented as of this encounter Plan of Treatment Not on file documented as of this encounter Visit Diagnoses Diagnosis Lumbago- Primary documented in this encounter Additional Health Concerns Infection Onset Date Last Indicated Resolved Time MRSA Comment:Resolved 07/30/2018, Infection Prevention Nares 12/15/15 12/16/2015 12/16/2015 07/30/2018 10:47 AM MULTIPLE PUNCH PRESS OPERATOR R/O COVID-19 03/01/2020 03/01/2020 03/03/2020 1:01 AM CDT documented as of this encounter Care Teams Manager Application Relationship Specialty Start Date End Date Randy Ren MD [address] [place] [address] PCP - General Family Practice 01/25/15 documented as of this encounter
--- OUTSIDE RECORDS SUMMARY | 2025-05-16 11:56 | XMS_ITS | Encounter Summary ---
Author Organization [facility] Address [address] [place] [address] Care Team Providers Care Rehab Director Name Role Phone Randy Ren MD Primary Care Provider [phone] Encounter Details Date Type Department Care Team (Latest Contact Info) Description 08/10/1998 Outpatient Historical [facility] Oral and Maxillo Surgery- [address] [place] [address] Jesus Ridley, SHYANNE NO ADDRESS ON FILE Dental caries (Primary Dx); Chronic gingivitis; Retained dental root; Periapical abscess Social History Tobacco Use Types Packs/Day Years Used Date Smoking Tobacco: Never Assessed Comments Unknown Sex and Gender Information Value Date Recorded Sex Assigned at Not on file Legal Sex Female 6:05 AM MICROSOFT BI CONSULTANT Gender Identity Not on file Sexual [...] Nares 12/15/15 12/16/2015 12/16/2015 07/30/2018 10:47 AM MICROSOFT BI CONSULTANT R/O COVID-19 03/01/2020 03/01/2020 03/03/2020 1:01 AM CDT documented as of this encounter Care Teams Rehab Director Relationship Specialty Start Date End Date Randy Ren MD [address] [place] [address] PCP - General Family Practice 01/25/15 documented as of this encounter
--- OUTSIDE RECORDS SUMMARY | 2025-05-16 11:56 | XMS_ITS | Encounter Summary ---
Author Organization [facility] Address [address] [place] [address] Care Team Providers Care Correction Officer Head Name Role Phone Randy Ren MD Primary Care Provider [phone] Reason for Referral * Radiology Services (Routine) - Closed Specialty Diagnoses / Procedures Referred By Contac t Referred To Contact Radiology Diagnoses Leg pain, bilateral Procedures US ANKLE PRESSURE INDEX US ANKLE BRACHIAL INDEX W STRESS Zainab James FNP [address] [place] [address] Phone: tel: fax: [facility] Non-Invasive Procedure [address] [place] [address] Phone: tel: fax: Referral ID Status Reason Start Date Expiration Date Visits Re quested Visits Authorized [id number] Closed 10/19/2020 11/19/2021 1 1 Encounter Details Date Type Department Care Team (Late st Contact Info) Description 12/08/2020 Ancillary Orders [facility] Pain Management [address] [place] [address] Zainab James FNP [address] [place] [phone] Leg pain, bilateral Social History Tobacco Use [...] How often do you attend chur or bahai services? Never 09/01/2020 Do you belong to any clubs o r organizations such as cheondoism groups, unions, fraternal or athletic groups, or [...] file Legal Sex Female 6:05 AM DIRECTOR OF SAFETY Gender Identity Not on file Sexual Orientation [...] AM CDT Narrative 12/08/2020 1:08 PM CDT [facility] Cardiovascular Services Noninvasive Vascular Laboratory [address] [place] [address] Noninvasive Vascular Lab RYAN with PVR Arterial Physiologic Evaluation Patient: Maya Figueroa Study ID: US RYAN Gender: F : 1970 Age: 50 Room: Height: Weight: BSA: Pt status: Outpatient Study Date: 12/08/2020 Study Time: 08:29:00 AM BSA: Ordering: Zainab James Interpreting:Arley Acosta MD Digital Media Buyer: Mariela Kramer RVT Indications: LEG PAIN. History: [...] dampened - L 5th toe Mildly dampened [facility] Vascular Lab is accredited with the Intersocietal Commission for the Accreditation of Vascular Laboratories (ICAVL) Prepared and Electronically Authenticated Arley Acosta MD Confirmed 12/08/2020 13:08 Procedure Note Arley Acosta MD - 12/08/2020 [facility] Cardiovascular Services Noninvasive Vascular Laboratory [address] [place] [address] Noninvasive Vascular Lab RYAN with PVR Arterial Physiologic Evaluation Patient: Maya Figueroa Study ID: US RYAN Gender: F : 1970 Age: 50 Room: Height: Weight: BSA: Pt status: Outpatient Study Date: 12/08/2020 Study Time: 08:29:00 AM BSA: Ordering: Zainab James Interpreting:Arley Acosta MD Digital Media Buyer: Mariela E McHaffie RVT Indications: LEG PAIN. [...] dampened - L 5th toe Mildly dampened [facility] Vascular Lab is accredited with the Intersocietal Commission for the Accreditation of Vascular Laboratories (ICAVL) Prepared and Electronically Authenticated Arley Acosta MD Confirmed 12/08/2020 13:08 us Zainab A Jacob PROPERTY WORKER US ORDERABLES Final Result documented in this encounter Visit Diagnoses Diagnosis Leg pain, bilateral Pain in limb Leg pain, bilateral Pain in limb documented in this encounter Additional Health Concerns Assessment Noted Time PHQ-9 Depression Total Score: 3 08/20/19 19 2:00 PM DIRECTOR OF SAFETY documented as of this encounter Care Teams Correction Officer Head Relationship Specialty Start Date End Date Randy Ren MD [address] [place] [address] PCP - General Family Practice 01/25/15 documented as of this encounter
--- OUTSIDE RECORDS SUMMARY | 2025-05-16 11:56 | XMS_ITS | Encounter Summary ---
Author Organization [facility] Address [address] [place] [address] Care Team Providers Care Palliative Senior Np Name Role Phone Randy Ren MD Primary Care Provider [phone] Encounter Details Date Type Department Care Team (Latest Contact Info) Description 10/04/2003 Outpatient Historical [address] [phone] Alondra Mehta MD [address] [place] [address], [id number] ACUTE FRONTAL SINUSITIS (Primary Dx); ACUTE BRONCHITIS Social History Tobacco Use Types Packs/Day Years Used Date Smoking Tobacco: Never Assessed Comments Unknown Sex and Gender Information Value Date Recorded Sex Assigned at Not on file Legal Sex Female 6:05 AM CHEMISTRY TECHNOLOGIST Gender Identity Not on file Sexual Orientation Not on file documented as of this encounter Plan of Treatment Not on file documented as of this encounter Visit Diagnoses Diagnosis Acute frontal sinusitis- Primary Acute bronchitis documented in this encounter Additional Health Concerns Infection Onset Date Last Indicated Resolved Time MRSA Comment:Resolved 07/30/2018, Infection Prevention Nares 12/15/15 12/16/2015 12/16/2015 07/30/2018 10:47 AM CHEMISTRY TECHNOLOGIST R/O COVID-19 03/01/2020 03/01/2020 03/03/2020 1:01 AM CDT documented as of this encounter Care Teams Palliative Senior Np Relationship Specialty Start Date End Date Randy Ren MD [address] [place] [address] PCP - General Family Practice 01/25/15 documented as of this encounter
--- OUTSIDE RECORDS SUMMARY | 2025-05-16 11:56 | XMS_ITS | Encounter Summary ---
Author Organization [facility] Address [address] [place] [address] Care Team Providers Care Environmental Services Assistant Name Role Phone Randy Ren MD Primary Care Provider [phone] Encounter Details Date Type Department Care Team (Latest Contact Info) Description 09/13/2015 Ancillary Orders [facility] [address] [facility] [address] [place] [address] Randy Ren MD [address] [place] [address] Inconclusive mammogram (Primary Dx) Social History Tobacco Use Types Packs/Day Years Used Date Smoking Tobacco: Former Cigarettes 1 0 09/09/1987 - 09/08/1988 Smokeless Tobacco: Never Alcohol Use Standard Drinks/Week Comments No 0 (1 standard drink = 0.6 oz pur e alcohol) Comments No Sex and Gender Information Value Date Recorded Sex Assigned at Not on file Legal Sex Female 6:05 AM SIX HORSE HITCH DRIVER Gender Identity Not on file Sexual Orientation [...] Nares 12/15/15 12/16/2015 12/16/2015 07/30/2018 10:47 AM SIX HORSE HITCH DRIVER R/O COVID-19 03/01/2020 03/01/2020 03/03/2020 1:01 AM CDT documented as of this encounter Care Teams Environmental Services Assistant Relationship Specialty Start Date End Date Randy Ren MD [address] [place] [address] PCP - General Family Practice 01/25/15 documented as of this encounter
--- OUTSIDE RECORDS SUMMARY | 2025-05-16 11:56 | XMS_ITS | Encounter Summary ---
Author Organization [facility] Address [address] [place] [address] Care Team Providers Care Yoga Instructor Name Role Phone Randy Ren MD Primary Care Provider [phone] Encounter Details Date Type Department Care Team (Late st Contact Info) Description 10/09/2003 Emergency [facility] [address] [place] [address] Xavier Sarkar, Arley Wyatt DO NO ADDRESS ON FILE BRONCHITIS NOS (Primary Dx) Social History Tobacco Use Types Packs/Day Years Used Date Smoking Tobacco: Never Assessed Comments Unknown Sex and Gender Information Value Date Recorded Sex Assigned at Not on file Legal Sex Female 6:05 AM ARMOR RECONNAISSANCE SPECIALIST Gender Identity Not on file Sexual [...] Nares 12/15/15 12/16/2015 12/16/2015 07/30/2018 10:47 AM ARMOR RECONNAISSANCE SPECIALIST R/O COVID-19 03/01/2020 03/01/2020 03/03/2020 1:01 AM CDT documented as of this encounter Care Teams Yoga Instructor Relationship Specialty Start Date End Date Randy Ren MD [address], [place] [address] PCP - General Family Practice 01/25/15 documented as of this encounter
--- OUTSIDE RECORDS SUMMARY | 2025-05-16 11:56 | XMS_ITS | Encounter Summary ---
Author Organization [facility] Address [address] [place] [address] Care Team Providers Care 2Nd Grade Teacher Name Role Phone Randy Ren MD Primary Care Provider [phone] Encounter Details Date Type Department Care Team (Latest Contact Info) Description 01/03/2004 Outpatient Historical [facility] Medicine [place] [address] [phone] Gregoria Olivarez MD [address] [place] [address] BACKACHE NOS (Primary Dx); Sprain lumbar region Social History Tobacco Use Types Packs/Day Years Used Date Smoking Tobacco: Never Assessed Comments Unknown Sex and Gender Information Value Date Recorded Sex Assigned at Not on file Legal Sex Female 6:05 AM SPOUT LINER Gender Identity Not on file Sexual Orientation [...] Nares 12/15/15 12/16/2015 12/16/2015 07/30/2018 10:47 AM SPOUT LINER R/O COVID-19 03/01/2020 03/01/2020 03/03/2020 1:01 AM CDT documented as of this encounter Care Teams 2Nd Grade Teacher Relationship Specialty Start Date End Date Randy Ren MD [address] [place] [address] PCP - General Family Practice 01/25/15 documented as of this encounter
--- OUTSIDE RECORDS SUMMARY | 2025-05-16 11:56 | XMS_ITS | Encounter Summary ---
Author Organization [facility] Address [address] [place] [address] Care Team Providers Care Block Trader Name Role Phone Randy Ren MD Primary Care Provider [phone] Encounter Details Date Type Department Care Team (Latest Contact Info) Description 11/12/2003 Outpatient Historical [facility] Medicine [place] [address] [place] [phone] Cachorro Mackay MD [address] [place] [phone] HYPOGLYCEMIA NOS (Primary Dx); POLYURIA Social History Tobacco Use Types Packs/Day Years Used Date Smoking Tobacco: Never Assessed Comments Unknown Sex and Gender Information Value Date Recorded Sex Assigned at Not on file Legal Sex Female 6:05 AM MULTIPLE PRESSURE RIVETER OPERATOR Gender Identity Not on file Sexual Orientation Not on file documented as of this encounter Plan of Treatment Not on file documented as of this encounter Visit Diagnoses Diagnosis Hypoglycemia, unspecified- Primary Polyuria documented in this encounter Additional Health Concerns Infection Onset Date Last Indicated Resolved Time MRSA Comment:Resolved 07/30/2018, Infection Prevention Nares 12/15/15 12/16/2015 12/16/2015 07/30/2018 10:47 AM MULTIPLE PRESSURE RIVETER OPERATOR R/O COVID-19 03/01/2020 03/01/2020 03/03/2020 1:01 AM CDT documented as of this encounter Care Teams Block Trader Relationship Specialty Start Date End Date Randy Ren MD [address] [place] [address] PCP - General Family Practice 01/25/15 documented as of this encounter
--- OUTSIDE RECORDS SUMMARY | 2025-05-16 11:56 | XMS_ITS | Encounter Summary ---
Author Organization [facility] Address [address] [place] [address] Care Team Providers Care Insurance Claims Representative Name Role Phone Randy Ren MD Primary Care Provider Reason for Referral * Outpatient Services (Routine) - Closed Specialty Diagnoses / Procedures Referred By Contac t Referred To Contact Diagnoses Inconclusive mammogram Procedures MAMMO BREAST US BILAT LTD Randy Ren MD [address] [place] [address] Phone: tel: fax: Referral ID Status Reason Start Date Expiration Date Visits Re quested Visits Authorized [id number] Closed 09/22/2015 10/22/2016 1 1 Encounter Details Date Type Department Care Team (Latest Contact Info) Description 09/22/2015 Ancillary Orders [facility] [place] [address] [facility] [address] [place] [address] Randy Ren MD [address] [place] [address] Inconclusive mammogram (Primary Dx) Social History Tobacco Use Types Packs/Day Years Used Date Smoking Tobacco: Former Cigarettes 1 0 09/09/1987 - 09/08/1988 Smokeless Tobacco: Never Alcohol Use Standard Drinks/Week Comments No 0 (1 standard drink = 0.6 oz pur e alcohol) Comments No Sex and Gender Information Value Date Recorded Sex Assigned at Not on file Legal Sex Female 6:05 AM RADIOLOGIC TECHNOLOGIST MAMMOGRAM Gender Identity Not on file Sexual Orientation [...] Patient received the result and recommendation letter. [id number] Narrative 09/22/2015 4:42 PM CDT REASON FOR [...] Nares 12/15/15 12/16/2015 12/16/2015 07/30/2018 10:47 AM RADIOLOGIC TECHNOLOGIST MAMMOGRAM R/O COVID-19 03/01/2020 03/01/2020 03/03/2020 1:01 AM CDT documented as of this encounter Care Teams Insurance Claims Representative Relationship Specialty Start Date End Date Randy Ren MD [address] [place] [address] PCP - General Family Practice 01/25/15 documented as of this encounter
--- OUTSIDE RECORDS SUMMARY | 2025-05-16 11:56 | XMS_ITS | Encounter Summary ---
Author Organization [facility] Address [address] [place] [address] Care Team Providers Care Scrap Hoist Operator Name Role Phone Randy Ren MD Primary Care Provider [phone] Encounter Details Date Type Department Care Team (Latest Contact Info) Description 10/08/2003 Outpatient Historical [address] [phone] Alondra Mehta MD [address] [place] [address], [address] TRACHEA/BRONCHUS DIS NEC (Primary Dx); URGE INCONTINENCE; PNEUMONIA, ORGANISM NOS Social History Tobacco Use Types Packs/Day Years Used Date Smoking Tobacco: Never Assessed Comments Unknown Sex and Gender Information Value Date Recorded Sex Assigned at Not on file Legal Sex Female 6:05 AM CERTIFIED ALCOHOL AND DRUG COUNSELOR Gender Identity Not on file Sexual Orientation [...] 12/15/15 12/16/2015 12/16/2015 07/30/2018 10:47 AM CERTIFIED ALCOHOL AND DRUG COUNSELOR R/O COVID-19 03/01/2020 03/01/2020 03/03/2020 1:01 AM CDT documented as of this encounter Care Teams Scrap Hoist Operator Relationship Specialty Start Date End Date Randy Ren MD [address] [address] PCP - General Family Practice 01/25/15 documented as of this encounter
--- OUTSIDE RECORDS SUMMARY | 2025-05-16 11:57 | XMS_ITS | Encounter Summary ---
Author Organization [facility] Address [address] [facility] Attn: Epic [place] [address] Care Team Providers Care Siebel Consultant Name Role Phone Randy Ren MD Primary Care Provider [phone] Encounter Details Date Type Department Care Team (Late st Contact Info) Description 11/18/2001 Outpatient Historical Cachorro Mackay MD [address] [place] [phone] Social History Tobacco Use Types Packs/Day Years Used Date Smoking Tobacco: Never Assessed Comments Unknown Sex and Gender Information Value Date Recorded Sex Assigned at Not on file Legal Sex Female 6:05 AM AERIAL SPRAYER Gender Identity Not on file Sexual Orientation Not on file documented as of this encounter Plan of Treatment Not on file documented as of this encounter Visit Diagnoses Not on filedocumented in this encounter Additional Health Concerns Infection Onset Date Last Indicated Resolved Time MRSA Comment:Resolved 07/30/2018, Infection Prevention Nares 12/15/15 12/16/2015 12/16/2015 07/30/2018 10:47 AM AERIAL SPRAYER R/O COVID-19 03/01/2020 03/01/2020 03/03/2020 1:01 AM CDT documented as of this encounter Care Teams Siebel Consultant Relationship Specialty Start Date End Date Randy Ren MD [address] [place] [address] PCP - General Family Practice 01/25/15 documented as of this encounter
--- OUTSIDE RECORDS SUMMARY | 2025-05-16 11:57 | XMS_ITS | Encounter Summary ---
Author Organization [facility] Address [address] [place] [address] Care Team Providers Care Endodontist Name Role Phone Randy Ren MD Primary Care Provider [phone] Encounter Details Date Type Department Care Team (Latest Contact Info) Description 06/18/2001 Outpatient Historical [facility] Medicine [place] [address] [phone] Cachorro Mackay MD [address] [place] [phone] ESOPHAGEAL REFLUX (Primary Dx); UNSPECIFIED VIRAL INFECTION Social History Tobacco Use Types Packs/Day Years Used Date Smoking Tobacco: Never Assessed Comments Unknown Sex and Gender Information Value Date Recorded Sex Assigned at Not on file Legal Sex Female 6:05 AM UX ENGINEER Gender Identity Not on file Sexual [...] Nares 12/15/15 12/16/2015 12/16/2015 07/30/2018 10:47 AM UX ENGINEER R/O COVID-19 03/01/2020 03/01/2020 03/03/2020 1:01 AM CDT documented as of this encounter Care Teams Endodontist Relationship Specialty Start Date End Date Randy Ren MD [address] [address] PCP - General Family Practice 01/25/15 documented as of this encounter
--- OUTSIDE RECORDS SUMMARY | 2025-05-16 11:57 | XMS_ITS | Encounter Summary ---
Author Organization [facility] Address [address] [place] [address] Care Team Providers Care Career Technical Education Instructor Name Role Phone Randy Ren MD Primary Care Provider [phone] Encounter Details Date Type Department Care Team (Latest Contact Info) Description 05/06/2002 Outpatient Historical [address] [phone] Alondra Mehta MD [address] [place] [address], [address] ESOPHAGEAL REFLUX (Primary Dx); ABNORMAL WEIGHT GAIN Social History Tobacco Use Types Packs/Day Years Used Date Smoking Tobacco: Never Assessed Comments Unknown Sex and Gender Information Value Date Recorded Sex Assigned at Not on file Legal Sex Female 6:05 AM LOZENGE MAKER HELPER Gender Identity Not on file Sexual Orientation Not on file documented as of this encounter Plan of Treatment Not on file documented as of this encounter Visit Diagnoses Diagnosis Esophageal reflux- Primary Abnormal weight gain documented in this encounter Additional Health Concerns Infection Onset Date Last Indicated Resolved Time MRSA Comment:Resolved 07/30/2018, Infection Prevention Nares 12/15/15 12/16/2015 12/16/2015 07/30/2018 10:47 AM LOZENGE MAKER HELPER R/O COVID-19 03/01/2020 03/01/2020 03/03/2020 1:01 AM CDT documented as of this encounter Care Teams Career Technical Education Instructor Relationship Specialty Start Date End Date Randy Ren MD [address] [place] [address] PCP - General Family Practice 01/25/15 documented as of this encounter
--- OUTSIDE RECORDS SUMMARY | 2025-05-16 11:57 | XMS_ITS | Encounter Summary ---
Author Organization [facility] Address [address] [place] [address] Care Team Providers Care Stock Mixer Name Role Phone Randy Ren MD Primary Care Provider [phone] Reason for Referral * Outpatient Services (Routine) - Closed Specialty Diagnoses / Procedures Referred By Contac t Referred To Contact Radiology Diagnoses Visit for screening mammogram Procedures MAMMO SCREEN BILAT W OR WO CAD Randy Ren MD [address] [place] [address] Phone: tel: fax: [facility] [place] [address] [facility] [address] [place] [address] Phone: tel: fax: Referral ID Status Reason Start Date Expiration Date Visits Re quested Visits Authorized [id number] Closed 09/18/2016 10/19/2017 1 1 Encounter Details Date Type Department Care Team (Latest Contact Info) Description 09/18/2016 Ancillary Orders [facility] Pre-Registration [place] CALL TO MAKE APPOINTMENT ONLY [address] [place] [address] Randy Ren MD [address] [place] [address] Visit for screening mammogram Social History Tobacco Use Types Packs/Day Years Used Date Smoking Tobacco: Former Cigarettes 1 0 09/09/1987 - 09/08/1988 Smokeless Tobacco: Never Alcohol Use Standard Drinks/Week Comments No 0 (1 standard drink = 0.6 oz pur e alcohol) Comments No Sex and Gender Information Value Date Recorded Sex Assigned at Not on file Legal Sex Female 6:05 AM IT HELP DESK MANAGER Gender Identity Not on file Sexual [...] Nares 12/15/15 12/16/2015 12/16/2015 07/30/2018 10:47 AM IT HELP DESK MANAGER R/O COVID-19 03/01/2020 03/01/2020 03/03/2020 1:01 AM CDT Assessment Noted Time PHQ-9 Depression Total Score: 6 08/24/19 17 8:00 AM IT HELP DESK MANAGER documented as of this encounter Care Teams Stock Mixer Relationship Specialty Start Date End Date Randy Ren MD [address] [place] [address] PCP - General Family Practice 01/25/15 documented as of this encounter
--- OUTSIDE RECORDS SUMMARY | 2025-05-16 11:57 | XMS_ITS | Encounter Summary ---
Author Organization [facility] Address [address] [place] [address] Care Team Providers Care Hammer Smith Name Role Phone Randy Ren MD Primary Care Provider [phone] Encounter Details Date Type Department Care Team (Late st Contact Info) Description 04/20/2002 Emergency [facility] [address] [place] [address] Arley Peres MD NO ADDRESS [...] documented as of this encounter Care Teams Hammer Smith Relationship Specialty Start Date End Date Randy Ren MD [address] [address] PCP - General Family Practice 01/25/15 documented as of this encounter
--- OUTSIDE RECORDS SUMMARY | 2025-05-16 11:57 | XMS_ITS | Encounter Summary ---
Author Organization [facility] Address [address] [place] [address] Care Team Providers Care Fund Accountant Name Role Phone Randy Ren MD Primary Care Provider [phone] Encounter Details Date Type Department Care Team (Latest Contact Info) Description 07/14/2004 Outpatient Historical [facility] Emergency Medicine [place] [address] [address] Gregoria Olivarez MD [address] [place] [address] ACUTE FRONTAL SINUSITIS (Primary Dx) Social History Tobacco Use Types Packs/Day Years Used Date Smoking Tobacco: Never Assessed Comments Unknown Sex and Gender Information Value Date Recorded Sex Assigned at Not on file Legal Sex Female 6:05 AM CUPOLA TENDER Gender Identity Not on file Sexual Orientation Not on file documented as of this encounter Plan of Treatment Not on file documented as of this encounter Visit Diagnoses Diagnosis Acute frontal sinusitis- Primary documented in this encounter Additional Health Concerns Infection Onset Date Last Indicated Resolved Time MRSA Comment:Resolved 07/30/2018, Infection Prevention Nares 12/15/15 12/16/2015 12/16/2015 07/30/2018 10:47 AM CUPOLA TENDER R/O COVID-19 03/01/2020 03/01/2020 03/03/2020 1:01 AM CDT documented as of this encounter Care Teams Fund Accountant Relationship Specialty Start Date End Date Randy Ren MD [address] [place] [address] PCP - General Family Practice 01/25/15 documented as of this encounter
--- OUTSIDE RECORDS SUMMARY | 2025-05-16 11:57 | XMS_ITS | Encounter Summary ---
Author Organization [facility] Address [address] [place] [address] Care Team Providers Care Stone Engraver Name Role Phone Randy Ren MD Primary Care Provider [phone] Reason for Referral * Outpatient Services (Routine) - Closed Specialty Diagnoses / Procedures Referred By Contac t Referred To Contact Radiology Diagnoses Mixed incontinence Morbid obesity (CMS/HCC) Procedures XR VIDEOURODYNAMICS Tyler Christian MD [address] [facility] [address] [place] [address] Phone: tel: fax: [facility] [address] [place] [address] Phone: tel: fax: Referral ID Status Reason Start Date Expiration Date V isits Requested Visits Authorized [id number] Closed [facility] TO SCHEDULE (SGF) 01/12/2013 02/12/2014 1 1 Encounter Details Date Type Department Care Team (Late st Contact Info) Description 01/12/2013 Ancillary Orders [facility] Pre-Registration [place] CALL TO MAKE APPOINTMENT ONLY [address] [place] [phone] Tyler Christian MD [address] [address] Mixed incontinence (Primary Dx); Morbid obesity (CMS/HCC) Social History Tobacco Use Types Packs/Day Years Used Date Smoking Tobacco: Former Cigarettes 0 Q uit: 09/08/1988 Alcohol Use Standard Drinks/Week Comments No 0 (1 standard drink = 0.6 oz pur e alcohol) Comments No Sex and Gender Information Value Date Recorded Sex Assigned at Not on file Legal Sex Female 6:05 AM ORTHOTIC/PROSTHETIC CLINICIAN Gender Identity Not on file Sexual Orientation [...] augmented the flow by straining. CYSTOMETRY: A 6-Ukrainian dual lumen urodynamic catheter, rectal catheter and [...] augmented the flow by straining. CYSTOMETRY: A 6-Ukrainian dual lumen urodynamic catheter, rectal catheter andsurface [...] flow was 20 mL/sec. Total voided volume dox937 mL. Residual urine was 60 mL. One [...] on the nomogram. DL/maribel - transcribed in [facility] - us Tyler Christian MD DIAGNOSTIC [...] Nares 12/15/15 12/16/2015 12/16/2015 07/30/2018 10:47 AM ORTHOTIC/PROSTHETIC CLINICIAN R/O COVID-19 03/01/2020 03/01/2020 03/03/2020 1:01 AM CDT documented as of this encounter Care Teams Stone Engraver Relationship Specialty Start Date End Date Randy Ren MD [address] [place] [address] PCP - General Family Practice 01/25/15 documented as of this encounter
--- OUTSIDE RECORDS SUMMARY | 2025-05-16 11:57 | XMS_ITS | Encounter Summary ---
Author Organization [facility] Address [address] [place] [address] Care Team Providers Care Hand Tapper Name Role Phone Randy Ren MD Primary Care Provider [phone] Encounter Details Date Type Department Care Team (Latest Contact Info) Description 01/12/1999 Outpatient Historical [facility] Jacob Rekha [address] [place] [phone] Dontrell Cedillo MD NO ADDRESS ON FILE Abdominal pain, unspecified site (Primary Dx); Abnormal weight gain Social History Tobacco Use Types Packs/Day Years Used Date Smoking Tobacco: Never Assessed Comments Unknown Sex and Gender Information Value Date Recorded Sex Assigned at Not on file Legal Sex Female 6:05 AM ESTATE PLANNING PARALEGAL Gender Identity Not on file Sexual Orientation Not on file documented as of this encounter Plan of Treatment Not on file documented as of this encounter Visit Diagnoses Diagnosis Abdominal pain, unspecified site- Primary Abnormal weight gain documented in this encounter Additional Health Concerns Infection Onset Date Last Indicated Resolved Time MRSA Comment:Resolved 07/30/2018, Infection Prevention Nares 12/15/15 12/16/2015 12/16/2015 07/30/2018 10:47 AM ESTATE PLANNING PARALEGAL R/O COVID-19 03/01/2020 03/01/2020 03/03/2020 1:01 AM CDT documented as of this encounter Care Teams Hand Tapper Relationship Specialty Start Date End Date Randy Ren MD [address] [place] [address] PCP - General Family Practice 01/25/15 documented as of this encounter
--- OUTSIDE RECORDS SUMMARY | 2025-05-16 11:57 | XMS_ITS | Encounter Summary ---
Author Organization [facility] Address [address] [place] [address] Care Team Providers Care Outside Parts Sales Name Role Phone Randy Ren MD Primary Care Provider [phone] Encounter Details Date Type Department Care Team [...] on file Legal Sex Female 6:05 AM BUILDING MECHANIC Gender Identity Not on file Sexual Orientation [...] Nares 12/15/15 12/16/2015 12/16/2015 07/30/2018 10:47 AM BUILDING MECHANIC R/O COVID-19 03/01/2020 03/01/2020 03/03/2020 1:01 AM CDT documented as of this encounter Care Teams Outside Parts Sales Relationship Specialty Start Date End Date Randy Ren MD [address] [place] [address] PCP - General Family Practice 01/25/15 documented as of this encounter
--- OUTSIDE RECORDS SUMMARY | 2025-05-16 11:57 | XMS_ITS | Encounter Summary ---
Author Organization [facility] Address [address] [place] [address] Care Team Providers Care Reliability Technologist Name Role Phone Andrea Ren DO Primary Care Provider [phone] Encounter Details Date Type Department Care Team (Latest Contact Info) Description 07/09/2024 Results Follow-Up [facility] Family Medicine [place] [address] [place] [address] Andrea Ren DO [address] [address] CBC WITH DIFFERENTIAL, COMPREHENSIVE METABOLIC PANEL, HEMOGLOBIN A1C, Additional followed-up results: 5 Social History Tobacco Use Types Packs/Day Years Used Date Smoking Tobacco: Former Cigarettes 1 Q uit: 09/08/1988 Passive Smoke Exposure: Past Smokeless Tobacco: Never Alcohol Use Standard Drinks/Week Comments No 0 (1 standard drink = 0.6 oz pur e alcohol) [facility] Utilities Answer Date Recorded In the past 12 months has [employer] electric, gas, oil, or water company threatened [...] often do you attend chur ch or lutheran services? 1 to 4 times per year 11/01/2023 Do you belong to any clubs o r organizations such as bahai groups, unions, fraternal or athletic groups, or [...] on file Legal Sex Female 2:33 AM GAME AUTHOR Gender Identity Not on file Sexual Orientation Not on file documented as of this encounter Plan of Treatment Upcoming Encounters Date Type Department Care Team (Late st Contact Info) Description 06/02/2025 3:50 PM GAME AUTHOR Office Visit [facility] Family Medicine [place] [address] [place] [phone] Danita Smith, ROOM SERVICE CLERK [address] [address] 06/28/2025 11:20 AM GAME AUTHOR Office Visit [facility] [address] [facility] [address] [place] [address] Ora De Anda, [place] [address] [facility] [address] [place] [address] 07/12/2025 10:45 AM GAME AUTHOR Office Visit [facility] Sleep Center [address] [phone] Dorys Cano, ROOM SERVICE CLERK [address] [address] 09/22/2025 12:20 PM CDT Hospital Encounter [facility] Endoscopy [address] [place] [address] Aayush Jc MD [address] [place] [address] 09/22/2025 12:20 PM CDT - 09/22/2025 12:40 PM CDT Surgery [facility] Endoscopy [address] [place] [address] Aayush Jc MD [address] [facility] [address] [place] [address] COLONOSCOPY 09/29/2025 10:30 AM CDT Office Visit [facility] Gastroenterology- [place] [address] [place] [address] Corin De Leon NP [address] [facility] [address] [place] [address] 11/11/2025 10:50 AM CDT Office Visit [facility] [place]opal Jacob Rekha [address] [place] [address] Melissa Anand MD [address] [place] [address] 01/04/2026 10:00 AM CDT Office Visit [facility] [address] [facility] [address] [place] [address] Cristóbal Rush MD [address] [facility] [address] [place] [address] Gavi Ballard, [facility] [address] [facility] [address] [place] [address] Scheduled Procedures Name Priority Associated Diagnoses Date/Ti me COLONOSCOPY Iron deficiency anemia, unspecified iron deficiency anemia type Chronic idiopathic constipation Colon cancer screening 09/22/2025 12:20 PM CDT documented as of this encounter Visit Diagnoses Not on filedocumented in this encounter Additional Health Concerns Infection Onset Date Last Indicated Resolved Time R/O COVID-19 10/27/2024 10/27/2024 10/27/2024 6:45 PM CDT R/O C. diff 03/12/2025 03/11/2025 03/12/2025 1:37 PM CDT Assessment Noted Time PHQ-9 Depression Total Score: 6 07/02/19 10:47 AM GAME AUTHOR documented as of this encounter Care Teams Reliability Technologist Relationship Specialty Start Date End Date Andrea Ren DO [address] [place] [address] PCP - General Family Practice 08/03/21 documented as of this encounter
--- OUTSIDE RECORDS SUMMARY | 2025-05-16 11:57 | XMS_ITS | Encounter Summary ---
Author Organization [facility] Address [address] [place] [address] Care Team Providers Care Escalator Installer Name Role Phone Randy Ren MD Primary Care Provider [phone] Encounter Details Date Type Department Care Team (Latest Contact Info) Description 04/07/2004 Outpatient Historical [facility] [place] [address] [phone] Gregoria Olivarez MD [address] [place] [address] ACUTE TONSILLITIS (Primary Dx); GI SYSTEM SYMPTOMS OTHER; HYPERTENSION NOS Social History Tobacco Use Types Packs/Day Years Used Date Smoking Tobacco: Never Assessed Comments Unknown Sex and Gender Information Value Date Recorded Sex Assigned at Not on file Legal Sex Female 6:05 AM OXYGRAPH OPERATOR Gender Identity Not on file Sexual [...] Nares 12/15/15 12/16/2015 12/16/2015 07/30/2018 10:47 AM OXYGRAPH OPERATOR R/O COVID-19 03/01/2020 03/01/2020 03/03/2020 1:01 AM CDT documented as of this encounter Care Teams Escalator Installer Relationship Specialty Start Date End Date Randy Ren MD [address], [place] [address] PCP - General Family Practice 01/25/15 documented as of this encounter
--- OUTSIDE RECORDS SUMMARY | 2025-05-16 11:57 | XMS_ITS | Encounter Summary ---
Author Organization [facility] Address [address] [place] [address] Care Team Providers Care Certified Cytotechnologist Name Role Phone Randy Ren MD Primary Care Provider [phone] Encounter Details Date Type Department Care Team (Latest Contact Info) Description 05/31/2004 Outpatient Historical [facility] Medicine [place] [address] [phone] Gregoria Olivarez MD [address] [place] [address] UNSPECIFIED VIRAL INFECTION (Primary Dx) Social History Tobacco Use Types Packs/Day Years Used Date Smoking Tobacco: Never Assessed Comments Unknown Sex and Gender Information Value Date Recorded Sex Assigned at Not on file Legal Sex Female 6:05 AM FIRE APPARATUS SPRINKLER INSPECTOR Gender Identity Not on file Sexual [...] Nares 12/15/15 12/16/2015 12/16/2015 07/30/2018 10:47 AM FIRE APPARATUS SPRINKLER INSPECTOR R/O COVID-19 03/01/2020 03/01/2020 03/03/2020 1:01 AM CDT documented as of this encounter Care Teams Certified Cytotechnologist Relationship Specialty Start Date End Date Randy Ren MD [address] [place] [address] PCP - General Family Practice 01/25/15 documented as of this encounter
--- OUTSIDE RECORDS SUMMARY | 2025-05-16 11:57 | XMS_ITS | Encounter Summary ---
Author Organization [facility] Address [address] [place] [address] Care Team Providers Care Padder Name Role Phone Randy Ren MD Primary Care Provider [phone] Encounter Details Date Type Department Care Team (Latest Contact Info) Description 03/20/2004 Outpatient Historical [facility] Medicine [place] [address] [phone] Gregoria Olivarez MD [address] [place] [address] GASTRITIS/DUODEN NOS W/O HEMORRH (Primary Dx) Social History Tobacco Use Types Packs/Day Years Used Date Smoking Tobacco: Never Assessed Comments Unknown Sex and Gender Information Value Date Recorded Sex Assigned at Not on file Legal Sex Female 6:05 AM FIELD SUPERVISOR SEED PRODUCTION Gender Identity Not on file Sexual Orientation [...] Nares 12/15/15 12/16/2015 12/16/2015 07/30/2018 10:47 AM FIELD SUPERVISOR SEED PRODUCTION R/O COVID-19 03/01/2020 03/01/2020 03/03/2020 1:01 AM CDT documented as of this encounter Care Teams Padder Relationship Specialty Start Date End Date Randy Ren MD [address] [place] [address] PCP - General Family Practice 01/25/15 documented as of this encounter
--- OUTSIDE RECORDS SUMMARY | 2025-05-16 11:57 | XMS_ITS | Encounter Summary ---
Author Organization [facility] Address [address] [place] [address] Care Team Providers Care Photography Teacher Name Role Phone Andrea Ren Primary Care Provider [phone] Encounter Details Date Type Department Care Team (Late st Contact Info) Description 03/30/2025 Results Follow-Up [facility] Gopal James [place] [address] [place] [address] Taylor Ross, THERES[place] [address] [place] [address] MAMMO 3D JAYLON SCREEN BILAT W OR WO CAD Social History Tobacco Use Types Packs/Day Years Used Date Smoking Tobacco: Former Cigarettes 1 Q uit: 09/08/1988 Passive Smoke Exposure: Past Smokeless Tobacco: Never Alcohol Use Standard Drinks/Week Comments No 0 (1 standard drink = 0.6 oz pur e alcohol) [facility] Utilities Answer Date Recorded In the past 12 months has [employer] electric, gas, oil, or water [employer] threatened to shut off services in your [...] often do you attend chur ch or zoroastrianism services? 1 to 4 times per year 11/01/2023 Do you belong to any clubs o r organizations such as sikhism groups, unions, fraternal or athletic groups, or [...] on file Legal Sex Female 2:33 AM CARTOGRAPHY TECHNICIAN Gender Identity Not on file Sexual Orientation Not on file documented as of this encounter Miscellaneous Notes * Result Encounter Note - Taylor Ross NP - 03/30/2025 9:03 PM CDT Mammogram results normal documented in this encounter Plan of Treatment Upcoming Encounters Date Type Department Care Team (Late st Contact Info) Description 06/02/2025 3:50 PM CARTOGRAPHY TECHNICIAN Office Visit [facility] Family Medicine [address] [phone] Danita Smith FNP [address] [phone] 06/28/2025 11:20 AM CARTOGRAPHY TECHNICIAN Office Visit [facility] Endocrinology [facility] [address] [address] Ora De Anda PA [address] [address] 07/12/2025 10:45 AM CARTOGRAPHY TECHNICIAN Office Visit [facility] Sleep Center [address] [address] Dorys Cano FNP [address] [address] 09/22/2025 12:20 PM CDT Hospital Encounter [facility] Endoscopy [address] [place] [address] Aayush Jc MD [address] [address] 09/22/2025 12:20 PM CDT - 09/22/2025 12:40 PM CDT Surgery [facility] Endoscopy [address] [place] [address] Aayush Jc MD [address] [address] COLONOSCOPY 09/29/2025 10:30 AM CDT Office Visit [facility] Gastroenterology- [place] [address] [address] Corin De Leon NP [address] [address] 11/11/2025 10:50 AM CDT Office Visit [facility] Gopal James Rekha [address] [place] [address] Melissa Anand MD [address] [facility] [address] [place] [address] 01/04/2026 10:00 AM CDT Office Visit [facility] [address] [facility] [address] [place] [address] Cristóbal Rush MD [address] [place] [address] Gavi Ballard, HORSE SHOER [address] [place] [address] Scheduled Procedures Name Priority Associated Diagnoses Date/Ti me COLONOSCOPY Iron deficiency anemia, unspecified iron deficiency anemia type Chronic idiopathic constipation Colon cancer screening 09/22/2025 12:20 PM CDT documented as of this encounter Visit Diagnoses Not on filedocumented in this encounter Additional Health Concerns Assessment Noted Time PHQ-9 Depression Total Score: 4 02/27/20 25 11:48 AM CDT documented as of this encounter Care Teams Photography Teacher Relationship Specialty Start Date End Date Andrea Ren DO [address] [place] [address] PCP - General Family Practice 08/03/21 documented as of this encounter
--- OUTSIDE RECORDS SUMMARY | 2025-05-16 11:57 | XMS_ITS | Encounter Summary ---
Author Organization [facility] Address [address] [place] [address] Care Team Providers Care Lead Electrical Engineer Name Role Phone Randy Ren MD Primary Care Provider [phone] Encounter Details Date Type Department Care Team (Latest Contact Info) Description 01/31/2001 Outpatient Historical [facility]IVAN[place] Jacob Rekha [address] [place] [phone] Dontrell Cedillo MD NO ADDRESS ON FILE Irregular menstruation (Primary Dx); Dysmenorrhea Social History Tobacco Use Types Packs/Day Years Used Date Smoking Tobacco: Never Assessed Comments Unknown Sex and Gender Information Value Date Recorded Sex Assigned at Not on file Legal Sex Female 6:05 AM HOME HOSPICE AIDE Gender Identity Not on file Sexual Orientation Not on file documented as of this encounter Plan of Treatment Not on file documented as of this encounter Visit Diagnoses Diagnosis Irregular menstruation- Primary Irregular menstrual cycle Dysmenorrhea documented in this encounter Additional Health Concerns Infection Onset Date Last Indicated Resolved Time MRSA Comment:Resolved 07/30/2018, Infection Prevention Nares 12/15/15 12/16/2015 12/16/2015 07/30/2018 10:47 AM HOME HOSPICE AIDE R/O COVID-19 03/01/2020 03/01/2020 03/03/2020 1:01 AM CDT documented as of this encounter Care Teams Lead Electrical Engineer Relationship Specialty Start Date End Date Randy Ren MD [address] [place] [address] PCP - General Family Practice 01/25/15 documented as of this encounter
--- OUTSIDE RECORDS SUMMARY | 2025-05-16 11:57 | XMS_ITS | Encounter Summary ---
Author Organization [facility] Address [address] [place] [address] Care Team Providers Care Station Agent Name Role Phone Randy Ren MD Primary Care Provider [phone] Encounter Details Date Type Department Care Team (Latest Contact Info) Description 10/03/1998 Outpatient Historical [facility] Oral [facility] Maxillo Surgery- [address] [place] [address] Jesus Ridley, SHYANNE NO ADDRESS ON FILE Dental caries (Primary Dx); Chronic gingivitis; Unspecified disorder of the teeth and supporting structures; Periapical abscess Social History Tobacco Use Types Packs/Day Years Used Date Smoking Tobacco: Never Assessed Comments Unknown Sex and Gender Information Value Date Recorded Sex Assigned at Not on file Legal Sex Female 6:05 AM ENFORCEMENT SAFETY OFFICER Gender Identity Not on file Sexual [...] Nares 12/15/15 12/16/2015 12/16/2015 07/30/2018 10:47 AM ENFORCEMENT SAFETY OFFICER R/O COVID-19 03/01/2020 03/01/2020 03/03/2020 1:01 AM CDT documented as of this encounter Care Teams Station Agent Relationship Specialty Start Date End Date Randy Ren MD [address] [place] [address] PCP - General Family Practice 01/25/15 documented as of this encounter
--- OUTSIDE RECORDS SUMMARY | 2025-05-16 11:57 | XMS_ITS | Encounter Summary ---
Author Organization [facility] Address [address] [place] [address] Care Team Providers Care Online Merchant Name Role Phone Randy Ren MD Primary Care Provider [phone] Encounter Details Date Type Department Care Team (Latest Contact Info) Description 05/29/2002 Outpatient Historical [facility] Services [address] [place] [address] Alondra Mehta MD [address] [place] [address], [id number] ESOPHAGEAL ANOMALY NEC (Primary Dx) Social History Tobacco Use Types Packs/Day Years Used Date Smoking Tobacco: Never Assessed Comments Unknown Sex and Gender Information Value Date Recorded Sex Assigned at Not on file Legal Sex Female 6:05 AM FLUXER Gender Identity Not on file Sexual Orientation Not on file documented as of this encounter Plan of Treatment Not on file documented as of this encounter Visit Diagnoses Diagnosis Other specified congenital anomaly of esophagus- Primary documented in this encounter Additional Health Concerns Infection Onset Date Last Indicated Resolved Time MRSA Comment:Resolved 07/30/2018, Infection Prevention Nares 12/15/15 12/16/2015 12/16/2015 07/30/2018 10:47 AM FLUXER R/O COVID-19 03/01/2020 03/01/2020 03/03/2020 1:01 AM CDT documented as of this encounter Care Teams Online Merchant Relationship Specialty Start Date End Date Randy Ren MD [address] [place] [address] PCP - General Family Practice 01/25/15 documented as of this encounter
--- OUTSIDE RECORDS SUMMARY | 2025-05-16 11:57 | XMS_ITS | Encounter Summary ---
Author Organization [facility] Address [address] [place] [address] Care Team Providers Care Assembler [employer] Name Role Phone Andrea Ren Primary Care Provider [phone] Reason for Visit * Reason Comments Med Refill Encounter Details Date Type Department Care Team (Late st Contact Info) Description 06/16/2024 Refill [facility] Endocrinology [facility] [address] [place] [address] Ora De Anda PA [address] [place] [address] Type 2 diabetes mellitus with hyperglycemia, with long-term current use of insulin ([facility]) Social History Tobacco Use Types Packs/Day Years Used Date Smoking Tobacco: Former Cigarettes 1 Q uit: 09/08/1988 Passive Smoke Exposure: Past Smokeless Tobacco: Never Alcohol Use Standard Drinks/Week Comments No 0 (1 standard drink = 0.6 oz pur e alcohol) [facility] Utilities Answer Date Recorded In the past 12 months has [employer], gas, oil, or water [employer] threatened to shut off services in your [...] How often do you attend chur or buddhist services? 1 to 4 times per year 11/01/2023 Do you belong to any clubs o r organizations such as rastafari groups, unions, fraternal or athletic groups, or [...] on file Legal Sex Female 2:33 AM STRATEGY INTERN Gender Identity Not on file Sexual Orientation Not on file documented as of this encounter Plan of Treatment Upcoming Encounters Date Type Department Care Team (Late st Contact Info) Description 06/02/2025 3:50 PM STRATEGY INTERN Office Visit [facility] Family [facility] [place] [address] [place] [phone] Danita Smith, [facility] [address] [address] 06/28/2025 11:20 AM STRATEGY INTERN Office Visit [facility] Endocrinology [facility] [address] [facility] [address] [place] [address] Ora De Anda PA [address] [facility] [address] [place] [address] 07/12/2025 10:45 AM STRATEGY INTERN Office Visit [facility] [address] [address] Dorys Cano, [facility] [address] [address] 09/22/2025 12:20 PM CDT Hospital Encounter [facility] Endoscopy [address] [place] [address] Aayush Jc MD [address] [facility] [address] [place] [address] 09/22/2025 12:20 PM CDT - 09/22/2025 12:40 PM CDT Surgery [facility] Endoscopy [address] [place] [phone] Aayush Jc MD [address] [facility] [address] [place] [phone] COLONOSCOPY 09/29/2025 10:30 AM CDT Office Visit [facility] G[facility]- [place] [address] [place] [address] Corin De Leon NP [address] [facility] [address] [place] [address] 11/11/2025 10:50 AM CDT Office Visit [facility] Gopal Jacob Rekha [address] [place] [address] Melissa Anand MD [address] [place] [address] 01/04/2026 10:00 AM CDT Office Visit [facility] [address] [facility] [address] [place] [phone] Cristóbal Rush MD [address] [facility] [address] [place] [phone] Gavi Ballard, ART DIRECTOR [address] [facility] [address] [place] [phone] Scheduled Procedures Name Priority Associated Diagnoses Date/Ti me COLONOSCOPY Iron deficiency anemia, unspecified iron deficiency anemia type Chronic idiopathic constipation Colon cancer screening 09/22/2025 12:20 PM CDT documented as of this encounter Visit Diagnoses Diagnosis Type 2 diabetes mellitus with hyperglycemia, with long-term current use of insulin (CMS/HCC) documented in this encounter Additional Health Concerns Infection Onset Date Last Indicated Resolved Time R/O COVID-19 10/27/2024 10/27/2024 10/27/2024 6:45 PM CDT R/O C. diff 03/12/2025 03/11/2025 03/12/2025 1:37 PM CDT Assessment Noted Time PHQ-9 Depression Total Score: 6 03/31/20 24 8:00 AM CDT documented as of this encounter Care Teams Assembler [employer] Relationship Specialty Start Date End Date Andrea Ren DO [address] [address] PCP - General Family Practice 08/03/21 documented as of this encounter
--- OUTSIDE RECORDS SUMMARY | 2025-05-16 11:57 | XMS_ITS | Clinical Summary ---
Author Organization [facility] tone Address [address] [place] [address] Care Team Providers Care Airplane Engineer Name Role Phone Andrea Ren Primary Care Provider [phone] Allergies Active Allergy Reactions Criticality Noted Date Comments Flagyl (As Hcl) Hives High 03/30/2025 Methocarbamol Itching,Other (See Comments) Low 02/25/2019 Metronidazole Hives High 02/26/2025 Sulfa (Sulfonamide Antibiotics) Shortness of Breath/Wheezing High 09/08/2010 Tramadol Headache High 01/20/2025 Trospium Abdominal Pain Low 05/06/2024 Low abdominal pain Unclassified Drug Shortness of Breath/Wheezing High 05/19/2015 Environmental, trees, mold ect. Medications cholecalciferol 1,250 mcg (50,000 unit) Capsule Take 1 Capsule (50,000 Units) by mouth every 7 days. 12 Capsule 0 019 Active azelastine (ASTELIN) 137 mcg/actuation nasal spray Administer 2 Sprays in each nostril 2 times daily. Angle bottle tip straight back and slightly outward, away from septum. 30 mL 6 021 Active ARIPiprazole (ABILIFY) 20 mg tablet Take 20 mg by mouth daily. 022 Active magnesium oxide 250 mg magnesium Tablet Take 250 mg by mouth. 015 Active acetaminophen (TYLENOL) 500 mg tablet Take 500 mg by mouth every 6 hours as needed. 017 Active Blood-Glucose Meter,Continuous (Dexcom G7 Heel Nail Rasper) Use to check BG. 1 Each 023 Active venlafaxine (EFFEXOR XR) 150 mg Extended Release 24 hour capsuleIndicatio ns:Current mild episode of major depressive disorder, unspecified whether recurrent Take 1 Capsule (150 mg) by mouth daily. Take with 75 mg capsule 90 Capsule 3 023 Active polyethylene glycol 3350 (ClearLax) 17 gram/dose Powder Take 1 Scoop (17 Grams) by mouth 2 times daily. 510 Gram 2 024 Active docusate sodium (COLACE) 100 mg capsule 2 CAPSULES BY MOUTH TWICE A DAY NEEDED FOR CONSTIPATION 120 Capsule 024 Active EPINEPHrine (EPIPEN) 0.3 mg/0.3 mL Auto-Injector Inject 0.3 mL (0.3 mg) by intramuscular injection 1 time daily as needed for Anaphylaxis. 2 Each 2 024 Active Motegrity 2 mg Tablet TAKE 1 TABLET(2 MG) BY MOUTH DAILY 90 Tablet 3 024 Active estradioL (ESTRACE) 0.01% (0.1 mg/g) vaginal cream Insert 1 Gram vaginally see administration instructions. 42.5 Gram 11 024 Active fesoterodine SR 24 hour (TOVIAZ) 4 mg tablet Take 1 Tablet (4 mg) by mouth daily. 30 Tablet 11 024 Active Additional Information Patient not taking.Reported on 02/26/2025 bi-level machineIndicatio ns:Obstructive sleep apnea Bi-level (E0470) [...] times daily. 300 Gram 1 025 Active famotidine (PEPCID) 40 mg tabletIndication s:Gastroesophage al reflux disease without esophagitis,Epig astric abdominal pain TAKE 1 TABLET BY MOUTH AT BEDTIME 30 Tablet 11 025 Active ferrous sulfate (FeroSuL) 325 mg (65 mg iron) tablet Take 1 Tablet (325 mg) by mouth every other day. With vitamin C 90 Tablet 3 Active lancets (Illuminate LabsTouch Delica Plus Lancet) 33 gauge Use to check BG 3x daily in case of cgm failure. 100 Each 025 Active CALCIUM CARBONATE ORAL Take by mouth. Active Insulin [place], Disposable, (TechLITE Pen Needle) 32 gauge x 1/4 NeedleIndication s:Type 2 diabetes mellitus with hyperglycemia, with long-term current use of insulin ([facility]) Use to inject insulin 5x daily. 500 Each 3 025 Active rOPINIRole (REQUIP) 1 mg tablet TAKE 1 & 1/2 TO 2 TABLETS BY MOUTH 1 TO 2 HOURS BEFORE BEDTIME. 60 Tablet 5 Active albuterol sulfate HFA 90 mcg/actuation aerosol inhalerIndicatio ns:Wheezing Take 2 Puffs by inhalation every 4 hours as needed for Shortness of Breath or Wheezing (cough). 8.5 Gram 1 025 Active inhalational spacing device (Microchamber) SpacerIndication s:Wheezing For use with albuterol inhaler. 1 Each 025 Active nitroglycerin (NITROSTAT) 0.4 mg Tablet, SublingualIndica tions:Atypical chest pain Place 1 Tablet (0.4 mg) under tongue every 5 minutes as needed for Chest Pain. 25 Tablet 3 025 Active Dexcom G7 Sensor DeviceIndication s:Type 2 diabetes mellitus with hyperglycemia, with long-term current use of insulin ([facility]) Replace every 10 days. 9 Each 3 025 Active Linzess 290 mcg capsuleIndicatio ns:Irritable bowel syndrome without diarrhea,Other constipation Take 1 Capsule (290 mcg) by mouth daily before breakfast. For chronic constipation 90 Capsule 3 025 Active diclofenac sodium (VOLTAREN) 75 mg Tablet, Delayed Release (E.C.)Indication s:Arthritis of both hands Take 1 Tablet (75 mg) by mouth 2 times daily. 60 Tablet 5 025 Active losartan (COZAAR) 50 mg tabletIndication s:Type 2 diabetes mellitus with hyperglycemia, with long-term current use of insulin ([facility]),Essent ial hypertension,Sta ge 3a chronic kidney disease ([facility]),Acute on chronic diastolic congestive heart failure ([facility]) Take 1 Tablet (50 mg) by mouth daily. 100 Tablet 3 025 Active atorvastatin (LIPITOR) 40 mg tabletIndication s:Type 2 diabetes mellitus with hyperglycemia, with long-term current use of insulin ([facility]) Take 1 Tablet (40 mg) by mouth daily at bedtime. 100 Tablet 3 025 Active blood sugar diagnostic (OneTouch Ultra Test) StripIndications :Type 2 diabetes mellitus with hyperglycemia, with long-term current use of insulin ([facility]) Check blood sugar three times daily with meals and at bedtime. DX E11.65 100 Strip 3 025 Active Blood-Glucose Meter (OneTouch Ultra2 Meter)Indication s:Type 2 diabetes mellitus with hyperglycemia, with long-term current use of insulin ([facility]) Check blood sugar three times daily with [...] at bedtime. 100 Tablet 2 025 Active insulin glargine (Lantus Solostar U-100 Insulin) 100 unit/mL pen syringeIndicatio ns:Type 2 diabetes mellitus with hyperglycemia, with long-term current use of insulin ([facility]) Inject 50 Units by subcutaneous injection 2 times daily. 75 mL 025 2025 Active nystatin (NYSTOP) 100,000 unit/gram powderIndication s:Candidal intertrigo Apply to affected area 2 times daily. 60 Gram 025 Active Jardiance 25 mg tabletIndication s:Type 2 diabetes mellitus with hyperglycemia, with long-term current use of insulin ([facility]) Take 1 Tablet (25 mg) by mouth daily in the morning. 90 Tablet 025 Active metFORMIN (GLUCOPHAGE) 1,000 mg tabletIndication s:Type 2 diabetes mellitus with hyperglycemia, with long-term current use of insulin ([facility]) TAKE 1 TABLET (1 000 MG) BY MOUTH 2 TIMES DAILY WITH MEALS. 180 Tablet 025 Active HumaLOG KwikPen Insulin 100 unit/mL pen syringeIndicatio ns:Type 2 diabetes mellitus with hyperglycemia, with long-term current use of insulin ([facility]) Sliding Scale Instructions: Less than [...] 150 units. 45 mL 3 025 Active omeprazole (PriLOSEC) 40 mg Capsule, Delayed Release(E.C.)Ind ications:Gastroe sophageal reflux disease, unspecified whether esophagitis present Take 1 Capsule (40 mg) by mouth 2 times daily. 180 Capsule 3 025 Active benztropine (COGENTIN) 1 mg tabletIndication s:Restless legs syndrome (RLS) TAKE 1 TABLET BY MOUTH TWICE A DAY. 60 Tablet 025 Active nortriptyline (PAMELOR) 25 mg capsule TAKE 3 CAPSULES BY MOUTH AT BEDTIME. 270 Capsule 025 Active hydrOXYzine pamoate (VISTARIL) 50 mg capsule TAKE 1 CAPSULE BY MOUTH AT BEDTIME 90 Capsule 025 Active venlafaxine (EFFEXOR XR) 75 mg Extended Release 24 hour capsuleIndicatio ns:Current mild episode of major depressive disorder, unspecified whether recurrent TAKE 1 CAPSULE BY MOUTH DAILY FOR 30 DAYS. TAKE WITH 150MG FOR A DAILY TOTAL OF 225MG. 100 Capsule Active bumetanide (BUMEX) 1 mg tabletIndication s:Peripheral edema Take 1 Tablet (1 mg) by mouth 2 times daily. HOLD furosemide and HCTZ 60 Tablet 1 Active galcanezumab-gnl m (Emgality Pen) 120 mg/mL Pen InjectorIndicati ons:Chronic migraine without aura without status migrainosus, not intractable ADMINISTER 1 ML UNDER THE SKIN EVERY 30 DAYS. NEED APPT FOR REFILLS. 1 mL 11 Active Mounjaro 15 mg/0.5 mL Pen InjectorIndicati ons:Type 2 diabetes mellitus with hyperglycemia, with long-term current use of insulin ([facility]) Inject 0.5 mL (15 mg) by subcutaneous injection every 7 days. 2 mL 5 Active baclofen (LIORESAL) 5 mg tabletIndication s:Chronic right-sided low back pain without sciatica Take 1 Tablet (5 mg) by mouth 3 times daily as needed for Pain. 270 Tablet 5 Active methenamine hippurate (HIPREX) 1 gram Tablet Take 1 Tablet (1,000 mg) by mouth 2 times daily. 60 Tablet 11 Active dextromethorphan -guaiFENesin 60-1,200 mg Tablet Sustained Release 12HRIndications: Acute cough Take 1 Tablet by mouth 2 times daily as needed for Other (See Comment) (Cough). 60 Tablet 1 Active ondansetron (ZOFRAN ODT) 8 mg Tablet, Rapid DissolveIndicati ons:Nausea Take 1 Tablet (8 mg) by mouth every 8 hours as needed for Nausea/Emesis. Dissolve on top of tongue then swallow with saliva 30 Tablet Active mometasone (NASONEX) 50 mcg/actuation [place], Non-AerosolIndic ations:Perennial allergic rhinitis Administer 2 Sprays in each nostril daily. 17 Gram 11 Active HYDROcodone-acet aminophen (NORCO) 5-325 mg tabletIndication s:Irritable bowel syndrome without diarrhea Take 1 Tablet by mouth every 6 hours as needed for Pain, Moderate. Max Daily Amount: 4 Tablets 20 Tablet Active OXcarbazepine (TRILEPTAL) 150 mg tabletIndication s:Type 2 diabetes mellitus with diabetic polyneuropathy ([facility]),Migrai ne without aura, not intractable, without status migrainosus Take 1 Tablet (150 mg) by mouth 2 times daily. 60 Tablet 11 025 Active fluconazole (DIFLUCAN) 150 mg tabletIndication s:Candidal intertrigo Take 1 Tablet (150 mg) by mouth daily. Repeat in 72 hours if symptoms have not resolved or improved. 2 Tablet 1 Active bacitracin (BACIGUENT) 500 unit/gram Ointment Apply to affected area daily. Active ondansetron (ZOFRAN ODT) 8 mg Tablet, Rapid DissolveIndicati ons:Nausea Dissolve 1 tablet on top of tongue then swallow with saliva every 8 hours as needed for nausea or vomiting 30 Tablet 0 020 2024 Discontinued(R eorder) methenamine hippurate (HIPREX) 1 gram Tablet Take 1 Tablet (1,000 mg) by mouth 2 times daily. 60 Tablet 11 024 2024 Discontinued baclofen (LIORESAL) 5 mg tabletIndication s:Chronic right-sided low back pain without sciatica Take 1 Tablet (5 mg) by mouth 3 times daily as needed for Pain. 270 Tablet 1 025 2024 Discontinued tirzepatide (Mounjaro) 15 mg/0.5 mL Pen InjectorIndicati ons:Type 2 diabetes mellitus with hyperglycemia, with long-term current use of insulin ([facility]) Inject 0.5 mL (15 mg) by subcutaneous injection every 7 days. 2 mL 5 025 2024 Discontinued mometasone (NASONEX) 50 mcg/actuation [place], Non-AerosolIndic ations:Perennial allergic rhinitis Administer 2 Sprays in each nostril daily. 17 Gram 1 12/08/ 025 2024 Discontinued(R eorder) HYDROcodone-acet aminophen (NORCO) 5-325 mg tabletIndication s:Irritable bowel syndrome without diarrhea Take 1 Tablet by mouth every 6 hours as needed for Pain, Moderate. Max Daily Amount: 4 Tablets 20 Tablet 025 2024 Discontinued(R eorder) fluconazole (DIFLUCAN) 150 mg tabletIndication s:Candidal intertrigo Take 1 Tablet (150 mg) by mouth daily. Repeat in 72 hours if symptoms have not resolved or improved. 2 Tablet 1 025 2024 Discontinued(R eorder) OXcarbazepine (TRILEPTAL) 150 mg tabletIndication s:Type 2 diabetes mellitus with diabetic polyneuropathy (CMS/HCC),Migrai ne without aura, not intractable, without status migrainosus Take 1 Tablet (150 mg) by mouth daily for 7 days, THEN 1 Tablet (150 mg) 2 times daily for 21 days. 60 Tablet 1 025 2024 Discontinued(R eorder) galcanezumab-gnl m (Emgality Pen) 120 mg/mL Pen InjectorIndicati ons:Chronic migraine without aura without status migrainosus, not intractable ADMINISTER 1 ML UNDER THE SKIN EVERY 30 DAYS 1 mL 025 2024 Discontinued vancomycin (VANCOCIN) 125 mg CapsuleIndicatio ns:Hx of Clostridium difficile infection Take 1 Capsule (125 mg) by mouth daily for 10 days. To prevent C Diff 10 Capsule 025 2024 Active Problems Problem Noted Date Diagnosed Date Major depressive disorder, r ecurrent, severe with psychotic symptoms 02/26/2025 Generalized anxiety disorder 02/26/2025 Chronic post-traumatic stress disorder Chronic diastolic heart failure 01/04/2025 H/O thyroid [...] Smooth Anechoic None or large comet-tail artifacts [id number] Cystic or almost completely cystic. ACR TIRADS 0, benign Nodule 2: Right lobe interpolar region measuring 1.1 cm. This is grossly stable allowing previous measurement 9 mm. Ill-defined Hypoechoic None or large comet-tail artifacts [id number] Solid or almost completely solid. ACR TIRADS 4, moderately suspicious follow-up recommended greater than 1 cm. Nodule 3: Left lobe inferiorly measuring 1.0 cm. Ill-defined Anechoic None or large comet-tail artifacts [id number] Cystic or almost completely cystic. ACR TIRADS 0, benign. IMPRESSION: Grossly stable solid right thyroid lesion characterized ACR TIRADS 4, moderately suspicious, follow-up recommended greater than 1 cm. Additional cystic nodules characterized benign. Assessment & Plan (06/05/2023 1:26 PM EQUIPMENT CLEANER AND TESTER): Stable. No change to medication Primary osteoarthritis [...] 01/05/2014 Assessment & Plan (06/05/2023 1:26 PM EQUIPMENT CLEANER AND TESTER): Stable and Controlled. No change to medication. DASH Diet handout provided. GERD (gastroesophageal reflux disease) 4 Class 3 severe obesity due t o excess calories with serious comorbidity and body mass index (BMI) of 40.0 to 44.9 in adult 01/05/2014 Assessment & Plan (06/05/2023 1:27 PM EQUIPMENT CLEANER AND TESTER): Estimated body mass index is 45.35 kg/m [...] 01/05/2014 Assessment & Plan (06/05/2023 2:02 PM EQUIPMENT CLEANER AND TESTER): Suboptimal control. Recommend referral to dragline operator for DM and weight loss. Recommend increase [...] Encounters Date Type Department Care Team Description 05/12/2025 11:30 AM EQUIPMENT CLEANER AND TESTER Clinical Support [address] [phone] Need for immunization against influenza (Primary Dx) 05/10/2025 Orders Only [address] [address] Zhou Vernon, WILBERTO 05/05/2025 9:40 AM EQUIPMENT CLEANER AND TESTER Office Visit [address] [phone] Andrea Ren DO Acute cough (Primary Dx); Candidal intertrigo; Cellulitis of face; Chronic diastolic heart failure (CMS/HCC) 04/28/2025 2:00 PM EQUIPMENT CLEANER AND TESTER Office Visit [address] [address] Andrea Ren DO Hx of Clostridium difficile infection (Primary Dx); Acute cough; Major depressive disorder, recurrent, severe with psychotic symptoms (CMS/HCC); Nausea; Perennial allergic rhinitis; Irritable bowel syndrome without diarrhea; Type 2 diabetes mellitus with diabetic polyneuropathy (CMS/HCC); Migraine without aura, not intractable, without status migrainosus 04/28/2025 Orders Only [facility] Information Management [place] [address] [place] [address] Provider, Abstract 04/28/2025 Abstract [facility] [address] [phone] Andrea Ren DO 04/23/2025 Refill [facility] Urology [place] [address] [facility] [address] [place] [phone] Kylie Villafuerte NP 04/23/2025 Refill [facility] [address] [address] Andrea Ren DO Type 2 diabetes mellitus with hyperglycemia, with long-term current use of insulin ([facility]); Chronic right-sided low back pain without sciatica 04/23/2025 Refill [facility] Headache Management [place] [address] [place] [phone] Nataliia Gallegos, VIDEOTAPE OPERATOR Chronic migraine without aura without status migrainosus, not intractable 04/13/2025 Refill [facility] [address] [address] Danita Smith, VIDEOTAPE OPERATOR Peripheral edema 03/30/2025 11:00 AM CDT Office Visit [facility] Gastroenterology- [place] [address] [facility] [address] [place] [phone] Corin De Leon, THERESA Iron deficiency anemia, unspecified iron deficiency anemia type (Primary Dx); Gastroesophageal reflux disease, unspecified whether esophagitis present; Chronic idiopathic constipation 03/30/2025 Results Follow-Up [facility] Gopal James Rekha [address] [place] [phone] Taylor Ross NP MAMMO 3D JAYLON SCREEN BILAT W OR WO CAD 03/30/2025 Refill [facility] [address] [address] Danita Smith, VIDEOTAPE OPERATOR Current mild episode of major depressive disorder, unspecified whether recurrent 03/29/2025 [facility] [place] [address] [place] [phone] Ntaaliia Gallegos, VIDEOTAPE OPERATOR Chronic migraine without aura without status migrainosus, not intractable 03/26/2025 10:12 AM CDT - 03/26/2025 11:59 PM CDT Hospital Encounter [facility] [address] [place] [phone] Melissa Anand MD Discharge Disposition: Home or Self Care 03/24/[address] [phone] Andrea Ren DO Gastroesophageal reflux disease, unspecified whether esophagitis present 03/11/2025 [facility] [address] [address] Andrea Rne DO Type 2 diabetes mellitus with diabetic polyneuropathy (CMS/HCC); Migraine without aura, not intractable, without status migrainosus 03/10/[address] [address] Andrea Ren DO Diarrhea 03/02/2025 External Device Data [facility] Provider, Abstract 03/02/2025 External Device Data [facility] Provider, Abstract 03/02/[address] [phone] Andrea Ren DO 03/01/[address] [address] Andrea Ren DO Restless legs syndrome (RLS) (Primary Dx) 02/26/2025 11:40 AM CDT Office Visit [address] [phone] Andrea Ren DO Encounter for annual wellness visit (AWV) in Medicare patient (Primary Dx); Balance problem; Gastroesophageal reflux disease, unspecified whether esophagitis present; Need for prophylactic vaccination against Streptococcus pneumoniae (pneumococcus) 02/22/2025 11:30 AM CDT Video Visit [facility] Infectious Disease-[place] [address] [place] [phone] Sisi Castelan, CLARE Clostridium difficile infection (Primary Dx) 02/16/[address] [address] Andrea Ren DO Candidal intertrigo 02/16/[address] [address] Danita Smith, VIDEOTAPE OPERATOR Peripheral edema from Last 3 Months Immunizations Immunization Administration Dates Next Due (ADACEL/BOOSTRIX)(10 YR UP) TDAP VACCINE, 0.5ML, IM 04/29/2015 (PFIZER)(12 YR UP) COVID-19 VACCINE - EMERGENCY USE AUTHORIZATION, MRNA, [id number](PF) 30 MCG/0.3 ML IM SUSP 03/09/2021,02/09/2021 (PNEUMOVAX 23)(50 YRS UP) PN EUMOCOCCAL POLYSACCHARIDE (PPV23) 0.5 ML, IM 04/05/2023 (PREVNAR 20)(6 WKS UP) PNEUM OCOCCAL CONJUGATE VACCINE 20-VALENT (PCV20), POLYSACCHARIDE [id number] CONJUGATE, ADJUVANT 0.5 ML (PF) IM 02/26/2025 Hepatitis A Vaccine 07/23/2006,02/19/2006,2005 Hepatitis B Vaccine 07/23/2006,02/19/2006,2005 INFLUENZA VACCINE QUADRIVALE NT 3 YR UP PF IM 04/05/2023,03/29/2022,04/27/2021,03/24,03/27/2019,05/02/2018,03/29/2017 ,05/02/2016 INFLUENZA VACCINE QUADRIVALE NT 6 MOS UP PF IM 04/05/2023,03/29/2022,03/24/2020 INFLUENZA VACCINE TRIVALENT SPLIT VIRUS, (6 MOS UP), 0.5ML (PF), IM 05/12/2025,03/19/2024 Influenza Seasonal Unspecifi ed Formulation IM 03/31/2021,04/07/2014 [...] drink = 0.6 oz pur e alcohol) [facility] [employer] Answer Date Recorded In the past 12 months has Emotive, gas, oil, or water [employer] threatened to shut off services in your [...] any clubs o r organizations such as zoroastrianism groups, unions, fraternal or athletic groups, or [...] on file Legal Sex Female 2:33 AM EQUIPMENT CLEANER AND TESTER Gender Identity Not on file Sexual Orientation Not on file Last Filed Vital Signs Vital Sign Reading Time Taken Comments Blood Pressure 116/70 05/05/2025 9:56 AM EQUIPMENT CLEANER AND TESTER Pulse 122 05/05/2025 9:56 AM EQUIPMENT CLEANER AND TESTER Temperature 36.7 C (98 F) 05/05/2025 9:56 AM EQUIPMENT CLEANER AND TESTER Respiratory Rate 20 05/05/2025 9:56 AM EQUIPMENT CLEANER AND TESTER Oxygen Saturation 97% 05/05/2025 9:56 AM EQUIPMENT CLEANER AND TESTER Room air Inhaled Oxygen Concentration - - Weight 127.2 kg (280 lb 6.4 oz) 05/05/2025 9:56 AM EQUIPMENT CLEANER AND TESTER Height 167.6 cm (5' 6 ) 05/05/2025 9:56 AM EQUIPMENT CLEANER AND TESTER Body Mass Index 45.26 05/05/2025 9:56 AM EQUIPMENT CLEANER AND TESTER Plan of Treatment Upcoming Encounters Date Type Department Care Team (Late st Contact Info) Description 06/02/2025 3:50 PM EQUIPMENT CLEANER AND TESTER Office Visit [facility] Medicine [place] [address] [phone] Danita Smith FNP [address] [phone] 06/28/2025 11:20 AM EQUIPMENT CLEANER AND TESTER Office Visit [facility] Endocrinology [facility] [address] [address] Ora De Anda PA [address] [address] 07/12/2025 10:45 AM EQUIPMENT CLEANER AND TESTER Office Visit [facility] [address] [address] Dorys Cano FNP [address] [address] 09/22/2025 12:20 PM CDT Hospital Encounter [facility] Endoscopy [address] [place] [address] Aayush Jc MD [address] [facility] [address] [place] [phone] 09/22/2025 12:20 PM CDT - 09/22/2025 12:40 PM CDT Surgery [facility] Endoscopy [address] [place] [phone] Aayush Jc MD [address] [address] COLONOSCOPY 09/29/2025 10:30 AM CDT Office Visit [facility] Gastroenterology- [place] [address] [address] Corin De Leon NP [address] [address] 11/11/2025 10:50 AM CDT Office Visit [facility] Gopal James Baxter [address] [place] [phone] Melissa Anand MD [address] [facility] [address] [place] [address] 01/04/2026 10:00 AM CDT Office Visit [facility] [address] [facility] [address] [place] [phone] Cristóbal Rush MD [address] [facility] [address] [place] [phone] Gavi Ballard, VIDEOTAPE OPERATOR [address] [facility] [address] [place] [phone] Scheduled Procedures Name Priority Associated Diagnoses Date/Ti me COLONOSCOPY Iron deficiency anemia, unspecified iron deficiency anemia type Chronic idiopathic constipation Colon cancer screening 09/22/2025 12:20 PM CDT Health Maintenance Due Date Last Done Comments HEPATITIS B VACCINES (1 of 3 - 19+ 3-dose series) 1989 07/23/2006, 02/19/2006, 01/18/2006 FIT-DNA Q 3 years 11/21/2015 Flex Sig/CT Colonography Q 5 years 11/21/2015 FIT/FOBT Q 1 year 07/31/2018 07/31/2017 ZOSTER VACCINE (1 of 2) 2020 COVID-19 Vaccine (3 - 2024-2 6 season) 2025 03/09/2021, 02/09/2021 DIABETES ANNUAL FOOT EXAM 04/28/20252023, 03/19/2024, 02/14/2023, Additional history exists DTAP/TDAP/TD VACCINES (2 - T d or Tdap) 04/29/2025 04/29/2015 COLORECTAL SCREENING 06/16/2025 06/16/2024, 06/16/2024, 11/21/2018, Additional history exists Colorectal Cancer Screening 06/16/2025 DIABETES MICROALBUMIN ANNUAL SCREEN 07/02/2025 07/02/2024, 11/01/2023, 09/10/2023, Additional history exists DIABETES HBA1C Q 6 MONTHS 08/26/20252024, 11/14/2024, 10/30/2024, Additional history exists LDL CHOLESTEROL ANNUAL 12/24/2025 , 11/14/2024, 10/31/2024, Additional history exists DIABETES: A1C (Auto Order) 02/26/202602/26, 11/14/2024, 10/30/2024, Additional history exists BREAST CANCER SCREENING 03/26/2026 03/26/20, 03/26/2024, 03/25/2023, Additional history exists DIABETES ANNUAL RETINAL EXAM 05/10/2026, 05/06/2024, 05/02/2023, Additional history exists KHE uACR (Auto Order) Completed 07/02/2024 , 11/01/2023, 09/10/2023, Additional history exists Medicare Advantage ([place]) Preventative Visit/Annual Wellness Visit Completed 02/26/2025, 07/02/2024, 12/25/2023, Additional history exists KHE eGFR (Auto Order) Completed 04/25/2025 , 01/25/2025, 01/20/2025, Additional history exists INFLUENZA VACCINE Completed 05/12/2025, , 04/05/2023, Additional history exists Medical Devices Implanted Type Area Bank Worker Device Identifier Shelf Expiration Date Model / Serial / Lot Hemostatic Gelfoam Powder 1gm [id number] - Sna Implanted:Qty: 1 on 01/03/2016 by Thiago Teran MD Hemostatic Right: Spine Lumbar PFIZER- PHARM 06/16/2018 [id number] / NA / [id number] Hemostatic Gelfoam Spng 12-7mm [id number] - Csc - Sna Implanted:Qty: 1 on 01/03/2016 by Thiago Teran MD Hemostatic Right: Spine Lumbar PFIZER- PHARM 04/16/2018 [id number] / NA / [id number] Procedures Procedure Name Priority Date/Time Associated Diagnosis Comments DIABETES EYE EXAM Routine 05/10/2025 11:38 AM EQUIPMENT CLEANER AND TESTER COMPREHENSIVE METABOLIC PANEL Routine 04/25/2025 10:08 AM EQUIPMENT CLEANER AND TESTER PROTIME-INR Routine 04/25/2025 MAMMO 3D JAYLON SCREEN BILAT W OR WO CAD Routine 03/26/2025 10:35 AM CDT Breast cancer screening by mammogram C. DIFFICILE DETECTION Routine 1:25 PM CDT C. difficile colitis HEMOGLOBIN A1C Routine 02/26/2025 12:36 PM CDT Type 2 diabetes mellitus with hyperglycemia, with long-term current use of insulin (CMS/HCC) LIPID PANEL Routine 12/24/2024 12:10 PM CDT Type 2 diabetes mellitus with hyperglycemia, with long-term current use of insulin (CMS/HCC) Thyroid nodule Stage 3a chronic kidney disease (CMS/HCC) MICROALBUMIN/CREATININ E RATIO, RANDOM UR Routine 07/02/2024 11:52 AM EQUIPMENT CLEANER AND TESTER Type 2 diabetes mellitus with hyperglycemia, with long-term current use of insulin ([facility]) COLONOSCOPY REPORT 06/16/2024 10 :00 AM EQUIPMENT CLEANER AND TESTER POC OCCULT BLOOD UP TO 3 CARDS Routine 07/31/2017 11:51 AM EQUIPMENT CLEANER AND TESTER from Last 3 Months or Most Recently Relevant to Health Maintenance Results * DIABETES EYE EXAM (05/10/2025 11:38 AM EQUIPMENT CLEANER AND TESTER) DIABETIC RETINOPATHY SCREENING Negative [facility] us Zhou Vernon OD HEALTH MAINTENANCE Edited Re sult - Final [facility] CLIA# [id number] [address] [place] [address] * COMPREHENSIVE METABOLIC PANEL (04/25/2025 10:08 AM EQUIPMENT CLEANER AND TESTER) Blood us Abstract Provider CHEMISTRY ORDERABLES Final Res ult * PROTIME-INR (04/25/2025) ABSTRACTED PROTIME 12.8 ABSTRACTED INR 1.2 Blood 04/25/2025 us Abstract Provider HEMATOLOGY ORDERABLES Final Re sult * MAMMO 3D JAYLON SCREEN BILAT W OR WO CAD (03/26/2025 10:35 AM CDT) Anatomical Region Laterality Modality Breast Bilateral Mammography Impressions 03/29/2025 8:18 PM CDT : No mammographic evidence of malignancy. BI-RADS ASSESSMENT: 1 - Negative RECOMMENDATION: Routine annual screening mammography. Narrative 03/29/2025 8:18 PM CDT EXAM: MAMMO SCRN BILAT 3D JAYLON W OR WO CAD INDICATION: Screening COMPARISON: 03/26/2024 MAMMO 3D JAYLON SCREEN BILAT W OR WO CAD, 03/25/2023 MAMMO SCRN BILAT 3D JAYLON W OR WO CAD, 03/21/2022 MAMMO SCRN BILAT 3D JAYLON W OR WO CAD, 02/06/2021 MAMMO SCRN BILAT 3D JAYLON W OR WO CAD, and 01/28/2020 MAMMO SCRN BILAT 3D JAYLON W OR WO CAD BREAST COMPOSITION: There are scattered areas of fibroglandular density. FINDINGS: RIGHT BREAST: There are no suspicious masses, calcifications, or areas of architectural distortion. LEFT BREAST: There are no suspicious masses, calcifications, or areas of architectural distortion. Melissa Anand MD MAMMO ORDERABLES Final Re sult * C. DIFFICILE DETECTION (03/11/2025 1:25 PM CDT) C DIFFICILE TOXIN B QUAL TNP [facility] Comment: TEST NOT PERFORMED Formed Stool was received. Unformed stool required for testing. Test Performed at: [facility] [address] [place] [address] Harlan Guidry MD Stool STOOL SPECIMEN / Unknown 03/11/2025 1:25 PM CDT 03/12/2025 2:44 AM CDT Andrea Ren DO MICROBIOLOGY - GENERAL ORDERA BLES Final Result [facility] [phone] [facility] [address] [facility] [place] [address] * (ABNORMAL) HEMOGLOBIN A1C (02/26/2025 12:36 PM CDT) HEMOGLOBIN A1C 6.6(H) <5.7 % [facility] Comment: For someone without known diabetes, a [...] A1c for diagnosis of diabetes for children. ESTIMATED AVERAGE GLUCOSE (MG/DL) 143 mg/dL [facility] ESTIMATED AVERAGE GLUCOSE (MMOL/L) 7.9 mmol/L [facility] Comment: Test Performed at: [facility] [id number] [facility] [place] [facility] [place] [address] Harlan Guidry MD Blood 02/26/2025 12:3 6 PM CDT 02/26/2025 12:36 PM CDT us Ora HUNTER CHEMISTRY ORDERABLES Final Re sult [facility] [phone] [facility] [address] [facility] [place] [address] * (ABNORMAL) LIPID PANEL (12/24/2024 12:10 PM CDT) CHOLESTEROL 112 <200 mg/dL [facility] HDL 36(L) > OR = 50 mg/dL [facility] TRIGLYCERIDE 166(H) <150 mg/dL [facility] LDL CALCULATED 52 mg/dL (calc) [facility] Comment: Reference range: <100 Desirable range <100 mg/dL for primary prevention; <70 mg/dL for patients with CHD or diabetic patients with > or = 2 CHD risk factors. LDL-C is now calculated using the Serge-Ryan calculation, which is a validated novel method providing better accuracy than the Friedewald equation in the estimation of LDL-C. Serge SS et al. ANSELMO. 2013;310(19): 1495-5204 (http://education.Wire/faq/YOK343) CHOL/HDL RATIO 3.1 <5.0 (calc) [facility] NON-HDL CHOLESTEROL 76 <130 mg/dL (calc) [facility] Comment: For patients with diabetes plus 1 major ASCVD risk factor, treating to a non-HDL-C goal of <100 mg/dL (LDL-C of <70 mg/dL) is considered a therapeutic option. Test Performed at: [facility] [address] [place] [address] Harlan Guidry MD Blood 12/24/2024 12:1 0 PM CDT 12/24/2024 12:10 PM CDT us Danita Smith VIDEOTAPE OPERATOR CHEMISTRY ORDERABLES Final Re sult [facility] [phone] [facility] [facility] [place] [address] * MICROALBUMIN/CREATININE RATIO, RANDOM UR (07/02/2024 11:52 AM EQUIPMENT CLEANER AND TESTER) Creatinine, Urine 72 20 - 275 mg/dL [facility] MICROALBUMIN, URINE 0.4 See Note: [...] within a diagnostic category. Test Performed at: [facility] [address] [facility] [place] [address] Harlan Guidry MD Urine URINE SPECIMEN OBTAINED BY CLEAN CATCH PROCEDURE / Unknown 07/02/2024 11:52 AM EQUIPMENT CLEANER AND TESTER 07/02/2024 11:52 AM EQUIPMENT CLEANER AND TESTER us Andrea Ren DO URINE ORDERABLES Final Result [facility] [phone] [facility] [address] [place] [address] * COLONOSCOPY REPORT (06/16/2024 10:00 AM EQUIPMENT CLEANER AND TESTER) Narrative Procedure Note Aayush Jc MD - 06/16/2024 10:00 AM CST [facility] GI Patient Name: Maya Figueroa Procedure [...] bowel preparation was evaluated using the BBPS (Shelby Bowel Preparation Scale) with scores of: Right [...] Out: 9:51:13 AM [address] [place], [place] Aayush Jc MD GI PROCEDURE ORDERABLES Final Result * (ABNORMAL) POC OCCULT BLOOD UP TO 3 CARDS (07/31/2017 11:51 AM EQUIPMENT CLEANER AND TESTER) OCCULT BLOOD 1 CARD POC Negative Negative 07/31/2017 11:54 AM EQUIPMENT CLEANER AND TESTER [facility] OCCULT BLOOD 2 CARD POC Negative Negative 07/31/2017 11:54 AM EQUIPMENT CLEANER AND TESTER [facility] OCCULT BLOOD 3 CARD POC Invalid Result(A) Negative 07/31/2017 11:54 AM EQUIPMENT CLEANER AND TESTER [facility] Comment:no specimen on card INTERNAL KIT QC Pass Pass 07/31/2017 11:54 AM EQUIPMENT CLEANER AND TESTER [facility] CARD LOT NUMBER POC [id number] 07/31/2017 11:54 AM EQUIPMENT CLEANER AND TESTER [facility] CARD EXPIRATION DATE POC 02-15-2018 07/31/2017 11:54 AM EQUIPMENT CLEANER AND TESTER [facility] DEVELOPER LOT NUMBER POC [id number] 07/31/2017 11:54 AM EQUIPMENT CLEANER AND TESTER [facility] DEVELOPER EXPIRATION DATE POC 12-16-2019 07/31/2017 11:54 AM EQUIPMENT CLEANER AND TESTER [facility] Stool STOOL SPECIMEN / Unknown 07/31/2017 11:51 AM EQUIPMENT CLEANER AND TESTER Dantia Smith VIDEOTAPE OPERATOR POINT OF CARE TESTING Final R esult [facility] CLIA# [id number] [address] [place] [phone] from Last 3 Months or Most Recently Relevant to Health Maintenance Insurance [place]ICAID [place] * Guarantor: MAYA FIGUEROA Account Type Relation to Patient Date of Phone Billing Address Personal/Family [address] [place] [address] RX INFOCROSSING Medicaid RX OMER PLANS (INTERNAL) [facility] Internal Plans Advance Directives For more information, please contact: [phone] * Full Code (Latest Code Status on File) Date Activated Date Inactivated Comments 06/16/2024 8:51 AM 06/16/2024 12:23 PM Care Teams Airplane Engineer Relationship Specialty Start Date End Date Andrea Ren DO [address] [place] [address] PCP - General Family Practice 08/03/21
--- OUTSIDE RECORDS SUMMARY | 2025-05-16 11:57 | XMS_ITS | Encounter Summary ---
Author Organization [facility] Address [address] [place] [address] Care Team Providers Care Cigar Making Supervisor Name Role Phone Randy Ren MD Primary Care Provider [phone] Encounter Details Date Type Department Care Team (Latest Contact Info) Description 08/13/2001 Outpatient Historical [address] [phone] Alondra Mehta MD [address] [place] [address], [id number] ESOPHAGEAL REFLUX (Primary Dx) Social History Tobacco Use Types Packs/Day Years Used Date Smoking Tobacco: Never Assessed Comments Unknown Sex and Gender Information Value Date Recorded Sex Assigned at Not on file Legal Sex Female 6:05 AM EVISCERATOR Gender Identity Not on file Sexual Orientation Not on file documented as of this encounter Plan of Treatment Not on file documented as of this encounter Visit Diagnoses Diagnosis Esophageal reflux- Primary documented in this encounter Additional Health Concerns Infection Onset Date Last Indicated Resolved Time MRSA Comment:Resolved 07/30/2018, Infection Prevention Nares 12/15/15 12/16/2015 12/16/2015 07/30/2018 10:47 AM EVISCERATOR R/O COVID-19 03/01/2020 03/01/2020 03/03/2020 1:01 AM CDT documented as of this encounter Care Teams Cigar Making Supervisor Relationship Specialty Start Date End Date Randy Ren MD [address] [place] [address] PCP - General Family Practice 01/25/15 documented as of this encounter
--- OUTSIDE RECORDS SUMMARY | 2025-05-16 11:57 | XMS_ITS | Encounter Summary ---
Author Organization [facility] Address [address] [place] [address] Care Team Providers Care Fire Patroller Name Role Phone Randy Ren MD Primary Care Provider [phone] Reason for Referral * Outpatient Services (Routine) - Closed Specialty Diagnoses / Procedures Referred By Contac t Referred To Contact Diagnoses Visit for screening mammogram Procedures MAMMO SCREEN BILAT W OR WO CAD Randy Ren MD [address] [place] [address] Phone: tel: fax: Referral ID Status Reason Start Date Expiration Date Visits Re quested Visits Authorized [id number] Closed 10/16/2017 11/16/2018 1 1 Encounter Details Date Type Department Care Team (Latest Contact Info) Description 10/16/[address] [facility] Pre-Registration [place] CALL TO MAKE APPOINTMENT ONLY [address] [place] [address] Randy Ren MD [address] [place] [address] Visit for screening mammogram Social History Tobacco Use Types Packs/Day Years Used Date Smoking Tobacco: Former Cigarettes 1 0 09/09/1987 - 09/08/1988 Smokeless Tobacco: Never Alcohol Use Standard Drinks/Week Comments No 0 (1 standard drink = 0.6 oz pur e alcohol) Comments No Sex and Gender Information Value Date Recorded Sex Assigned at Not on file Legal Sex Female 6:05 AM HEALTH CARE LAW SPECIALIST Gender Identity Not on file Sexual [...] significant new findings since the prior mammogram(s). us Randy Ren MD MAMMO ORDERABLES Final Result documented in this encounter Visit Diagnoses Diagnosis Visit for screening mammogram Other screening mammogram Visit for screening mammogram Other screening mammogram documented in this encounter Additional Health Concerns Infection Onset Date Last Indicated Resolved Time MRSA Comment:Resolved 07/30/2018, Infection Prevention Nares 12/15/15 12/16/2015 12/16/2015 07/30/2018 10:47 AM HEALTH CARE LAW SPECIALIST R/O COVID-19 03/01/2020 03/01/2020 03/03/2020 1:01 AM CDT Assessment Noted Time PHQ-9 Depression Total Score: 6 08/24/19 17 8:00 AM HEALTH CARE LAW SPECIALIST documented as of this encounter Care Teams Fire Patroller Relationship Specialty Start Date End Date Randy Ren MD [address] [place] [address] PCP - General Family Practice 01/25/15 documented as of this encounter
--- OUTSIDE RECORDS SUMMARY | 2025-05-16 11:57 | XMS_ITS | Encounter Summary ---
Author Organization [facility] Address [address] [place] [address] Care Team Providers Care Customer Complaint Service Supervisor Name Role Phone Randy Ren MD Primary Care Provider [phone] Encounter Details Date Type Department Care Team (Late st Contact Info) Description 07/29/2006 Emergency [facility] Emergency Department [address] [place] [phone] Luis Manuel Shelton MD [address] [address] Abdominal Pain, Unspecified Site (Primary Dx) Social History Tobacco Use Types Packs/Day Years Used Date Smoking Tobacco: Never Assessed Comments Unknown Sex and Gender Information Value Date Recorded Sex Assigned at Not on file Legal Sex Female 6:05 AM PHOTOGRAMMETRY AIRPLANE PILOT Gender Identity Not on file Sexual Orientation Not on file documented as of this encounter Plan of Treatment Not on file documented as of this encounter Procedures Procedure Name Priority Date/Time Associated Diagnosis Comments CBC WITH DIFFERENTIAL Routine 07/29/2006 3:04 PM PHOTOGRAMMETRY AIRPLANE PILOT LIPASE Routine 07/29/2006 3:04 PM PHOTOGRAMMETRY AIRPLANE PILOT COMPREHENSIVE METABOLIC PANEL Routine 07/29/2006 3:04 PM PHOTOGRAMMETRY AIRPLANE PILOT URINALYSIS MICROSCOPY ONLY Routine 07/29/2006 1:24 PM PHOTOGRAMMETRY AIRPLANE PILOT URINALYSIS W/REFLEX MICROSCOPIC Routine 07/29/2006 1:24 PM PHOTOGRAMMETRY AIRPLANE PILOT documented in this encounter Results * LIPASE (07/29/2006 3:04 PM PHOTOGRAMMETRY AIRPLANE PILOT) LIPASE 26 6 - 51 U/L INTERFACE SYSTEM Comment: As of 05 the [facility] has changed testing methods. The new reference range is 6-51 The old referance range was 23-300 07/29/2006 3:04 PM PHOTOGRAMMETRY AIRPLANE PILOT Luis Manuel Shelton MD CHEMISTRY ORDERABLES Edited INTERFACE SYSTEM Refer to clinic/hospital department * (ABNORMAL) COMPREHENSIVE METABOLIC PANEL (07/29/2006 3:04 PM PHOTOGRAMMETRY AIRPLANE PILOT) GLUCOSE 112(H) 70 - 110 mg/dL INTERFACE [...] 1.2 mg/dL INTERFACE SYSTEM 07/29/2006 3:04 PM PHOTOGRAMMETRY AIRPLANE PILOT Luis Manuel Shelton MD CHEMISTRY ORDERABLES Edited INTERFACE SYSTEM Refer to clinic/hospital department * (ABNORMAL) CBC WITH DIFFERENTIAL (07/29/2006 3:04 PM PHOTOGRAMMETRY AIRPLANE PILOT) WBC 3.6(L) 4.5 - 11.0 K/ul INTERFACE [...] 0.2 K/ul INTERFACE SYSTEM 07/29/2006 3:04 PM PHOTOGRAMMETRY AIRPLANE PILOT Luis Manuel Shelton MD HEMATOLOGY ORDERABLES Edited INTERFACE SYSTEM Refer to clinic/hospital department * (ABNORMAL) URINALYSIS MICROSCOPY ONLY (07/29/2006 1:24 PM PHOTOGRAMMETRY AIRPLANE PILOT) WBC URINE 0-2 0 - 2 INTERFACE SYSTEM RBC UA None Seen 0 - 2 INTERFACE SYSTEM HYALINE CAST None Seen 0 - 2 INTERFA CE SYSTEM BACTERIA UA Moderate(A ) None Seen INTERFACE SYSTEM 07/29/2006 1:24 PM PHOTOGRAMMETRY AIRPLANE PILOT us Physician Sj Ed URINE ORDERABLES Edited Performing Organization Address City/[facility]/ZIP Co de Phone Number INTERFACE SYSTEM Refer to clinic/hospital department * (ABNORMAL) URINALYSIS (07/29/2006 1:24 PM PHOTOGRAMMETRY AIRPLANE PILOT) COLOR UA Yellow Straw INTERFACE SYSTEM CLARITY [...] Yes(A) No INTERFACE SYSTEM 07/29/2006 1:24 PM PHOTOGRAMMETRY AIRPLANE PILOT Physician Sj Ed URINE ORDERABLES Edited Performing Organization Address City/[facility] Co de Phone Number INTERFACE SYSTEM Refer to clinic/hospital department documented in this encounter Visit Diagnoses Diagnosis Abdominal pain, unspecified site- Primary documented in this encounter Additional Health Concerns Infection Onset Date Last Indicated Resolved Time MRSA Comment:Resolved 07/30/2018, Infection Prevention Nares 12/15/15 12/16/2015 12/16/2015 07/30/2018 10:47 AM PHOTOGRAMMETRY AIRPLANE PILOT R/O COVID-19 03/01/2020 03/01/2020 03/03/2020 1:01 AM CDT documented as of this encounter Care Teams Customer Complaint Service Supervisor Relationship Specialty Start Date End Date Randy Ren MD [address] [place] [address] PCP - General Family Practice 01/25/15 documented as of this encounter
--- OUTSIDE RECORDS SUMMARY | 2025-05-16 11:57 | XMS_ITS | Encounter Summary ---
Author Organization [facility] Address [address] [place] [address] Care Team Providers Care Tank Truck Milk Receiver Name Role Phone Randy Ren MD Primary Care Provider Encounter Details Date Type Department Care Team (Latest Contact Info) Description 04/24/2004 Outpatient Historical [facility] Endoscopy [place] [address] [place] [phone] Nehemiah Rodríguez MD [address] [facility] [address] [place] [address] GI SYSTEM SYMPTOMS OTHER (Primary Dx) Social History Tobacco Use Types Packs/Day Years Used Date Smoking Tobacco: Never Assessed Comments Unknown Sex and Gender Information Value Date Recorded Sex Assigned at Not on file Legal Sex Female 6:05 AM CONDUCTOR FREIGHT Gender Identity Not on file Sexual Orientation [...] Nares 12/15/15 12/16/2015 12/16/2015 07/30/2018 10:47 AM CONDUCTOR FREIGHT R/O COVID-19 03/01/2020 03/01/2020 03/03/2020 1:01 AM CDT documented as of this encounter Care Teams Tank Truck Milk Receiver Relationship Specialty Start Date End Date Randy Ren MD [address] [address] PCP - General Family Practice 01/25/15 documented as of this encounter
--- OUTSIDE RECORDS SUMMARY | 2025-05-16 11:57 | XMS_ITS | Encounter Summary ---
Author Organization [facility] Address [address] [place] [address] Care Team Providers Care Drugless Doctor Name Role Phone Randy Ren MD Primary Care Provider [phone] Encounter Details Date Type Department Care Team (Latest Contact Info) Description 05/08/2004 Outpatient Historical [facility] Medicine [address] [phone] Gregoria Olivarez MD [address] [place] [address] ACUTE TONSILLITIS (Primary Dx) Social History Tobacco Use Types Packs/Day Years Used Date Smoking Tobacco: Never Assessed Comments Unknown Sex and Gender Information Value Date Recorded Sex Assigned at Not on file Legal Sex Female 6:05 AM MIRROR DEPARTMENT SUPERVISOR Gender Identity Not on file Sexual Orientation Not on file documented as of this encounter Plan of Treatment Not on file documented as of this encounter Visit Diagnoses Diagnosis Acute tonsillitis- Primary documented in this encounter Additional Health Concerns Infection Onset Date Last Indicated Resolved Time MRSA Comment:Resolved 07/30/2018, Infection Prevention Nares 12/15/15 12/16/2015 12/16/2015 07/30/2018 10:47 AM MIRROR DEPARTMENT SUPERVISOR R/O COVID-19 03/01/2020 03/01/2020 03/03/2020 1:01 AM CDT documented as of this encounter Care Teams Drugless Doctor Relationship Specialty Start Date End Date Randy Ren MD [address] [place] [address] PCP - General Family Practice 01/25/15 documented as of this encounter
--- OUTSIDE RECORDS SUMMARY | 2025-05-16 11:57 | XMS_ITS | Encounter Summary ---
Author Organization [facility] Address [address] [place] [address] Care Team Providers Care Singer Songwriter Name Role Phone Randy Ren MD Primary Care Provider [phone] Encounter Details Date Type Department Care Team (Latest Contact Info) Description 10/10/1998 Outpatient Historical [facility] Oral and Maxillo Surgery- [address] [place] [phone] Zhou Camarena, PhD NO ADDRESS ON FILE Follow-up examination following surgery (Primary Dx) Social History Tobacco Use Types Packs/Day Years Used Date Smoking Tobacco: Never Assessed Comments Unknown Sex and Gender Information Value Date Recorded Sex Assigned at Not on file Legal Sex Female 6:05 AM INCIDENT COMMANDER Gender Identity Not on file Sexual Orientation Not on file documented as of this encounter Plan of Treatment Not on file documented as of this encounter Visit Diagnoses Diagnosis Follow-up examination following surgery- Primary documented in this encounter Additional Health Concerns Infection Onset Date Last Indicated Resolved Time MRSA Comment:Resolved 07/30/2018, Infection Prevention Nares 12/15/15 12/16/2015 12/16/2015 07/30/2018 10:47 AM INCIDENT COMMANDER R/O COVID-19 03/01/2020 03/01/2020 03/03/2020 1:0 1 AM CDT documented as of this encounter Care Teams Singer Songwriter Relationship Specialty Start Date End Date Randy Ren MD [address] [place] [address] PCP - General Family Practice 01/25/15 documented as of this encounter
--- OUTSIDE RECORDS SUMMARY | 2025-05-16 11:57 | XMS_ITS | Encounter Summary ---
Author Organization [facility] Address [address] [place] [address] Care Team Providers Care Agency Legal Counsel Name Role Phone Randy Ren MD Primary Care Provider [phone] Encounter Details Date Type Department Care Team (Latest Contact Info) Description 11/18/2001 Outpatient Historical [facility] Medicine [place] [address] [phone] Gregroia Olivarez MD [address] [place] [address] IMPACTED CERUMEN (Primary Dx); VAGINITIS NOS; ABNORMAL WEIGHT GAIN; OTHER MALAISE AND FATIGUE Social History Tobacco Use Types Packs/Day Years Used Date Smoking Tobacco: Never Assessed Comments Unknown Sex and Gender Information Value Date Recorded Sex Assigned at Not on file Legal Sex Female 6:05 AM STORAGE BATTERY CHARGER Gender Identity Not on file Sexual Orientation [...] Nares 12/15/15 12/16/2015 12/16/2015 07/30/2018 10:47 AM STORAGE BATTERY CHARGER R/O COVID-19 03/01/2020 03/01/2020 03/03/2020 1:01 AM CDT documented as of this encounter Care Teams Agency Legal Counsel Relationship Specialty Start Date End Date Randy Ren MD [address] [place] [address] PCP - General Family Practice 01/25/15 documented as of this encounter
--- OUTSIDE RECORDS SUMMARY | 2025-05-16 11:57 | XMS_ITS | Encounter Summary ---
Author Organization [facility] Address [address] [place] [address] Care Team Providers Care Financial Wellness Coach Name Role Phone Randy Ren MD Primary Care Provider [phone] Encounter Details Date Type Department Care Team (Latest Contact Info) Description 11/25/1997 Outpatient Historical [facility] Jacob Rekha [address] [place] [phone] Dontrell Cedillo MD NO ADDRESS ON FILE Metrorrhagia (Primary Dx) Social History Tobacco Use Types Packs/Day Years Used Date Smoking Tobacco: Never Assessed Comments Unknown Sex and Gender Information Value Date Recorded Sex Assigned at Not on file Legal Sex Female 6:05 AM VEGETABLE FARMING SUPERVISOR Gender Identity Not on file Sexual Orientation Not on file documented as of this encounter Plan of Treatment Not on file documented as of this encounter Visit Diagnoses Diagnosis Metrorrhagia- Primary documented in this encounter Additional Health Concerns Infection Onset Date Last Indicated Resolved Time MRSA Comment:Resolved 07/30/2018, Infection Prevention Nares 12/15/15 12/16/2015 12/16/2015 07/30/2018 10:47 AM VEGETABLE FARMING SUPERVISOR R/O COVID-19 03/01/2020 03/01/2020 03/03/2020 1:01 AM CDT documented as of this encounter Care Teams Financial Wellness Coach Relationship Specialty Start Date End Date Randy Ren MD [address], [place] [address] PCP - General Family Practice 01/25/15 documented as of this encounter
--- OUTSIDE RECORDS SUMMARY | 2025-05-16 11:57 | XMS_ITS | Encounter Summary ---
Author Organization [facility] Address [address] [place] [address] Care Team Providers Care Casting Machine Operator Helper Name Role Phone Randy Ren MD Primary Care Provider [phone] Reason for Referral * Outpatient Services (Routine) - Closed Specialty Diagnoses / Procedures Referred By Contac t Referred To Contact Diagnoses Irregular periods Procedures US PELVIS + TRANSVAG NON OB US PELVIS COMPLETE Cachorro Mackay MD Phone: tel: fax: [facility] Pre-Registration [place] CALL TO MAKE APPOINTMENT ONLY [address] [place] [address] Phone: tel: fax: Referral ID Status Reason Start Date Expiration Date V isits Requested Visits Authorized [id number] Closed [facility] TO SCHEDULE ([facility]) 11/10/2014 12/11/2015 1 1 Encounter Details Date Type Department Care Team (Late st Contact Info) Description 11/10/2014 Ancillary Orders [facility] Medicine [place] [address] [phone] Cachorro Mackay MD [address] [place] [phone] Irregular periods (Primary Dx) Social History Tobacco Use Types Packs/Day Years Used Date Smoking Tobacco: Former Cigarettes 0 Q uit: 09/08/1988 Smokeless Tobacco: Never Alcohol Use Standard Drinks/Week Comments No 0 (1 standard drink = 0.6 oz pur e alcohol) Comments No Sex and Gender Information Value Date Recorded Sex Assigned at Not on file Legal Sex Female 6:05 AM CONTRIBUTION SOLICITOR Gender Identity Not on file Sexual Orientation [...] Otherwise, unremarkable examination. us Cachorro Mackay MD ORDERABLES Final Result documented in this encounter Visit Diagnoses Diagnosis Irregular periods Irregular menstrual cycle Irregular periods- Primary Irregular menstrual cycle documented in this encounter Additional Health Concerns Infection Onset Date Last Indicated Resolved Time MRSA Comment:Resolved 07/30/2018, Infection Prevention Nares 12/15/15 12/16/2015 12/16/2015 07/30/2018 10:47 AM CONTRIBUTION SOLICITOR R/O COVID-19 03/01/2020 03/01/2020 03/03/2020 1:01 AM CDT documented as of this encounter Care Teams Casting Machine Operator Helper Relationship Specialty Start Date End Date Randy Ren MD [address] [place] [phone] PCP - General Family Practice 01/25/15 documented as of this encounter
--- OUTSIDE RECORDS SUMMARY | 2025-05-16 11:57 | XMS_ITS | Encounter Summary ---
Author Organization [facility] Address [address] [place] [address] Care Team Providers Care Automobile Tire Builder Name Role Phone Andrea Ren Primary Care Provider [phone] Encounter Details Date Type Department Care Team (Late st Contact Info) Description 05/10/2025 Orders Only [facility] Medicine [place] [address] [phone] Zhou Vernon, OD [address] [place] [address] Social History Tobacco Use Types Packs/Day Years Used Date Smoking Tobacco: Former Cigarettes 1 Q uit: 09/08/1988 Passive Smoke Exposure: Past Smokeless Tobacco: Never Alcohol Use Standard Drinks/Week Comments No 0 (1 standard drink = 0.6 oz pur e alcohol) [facility] Utilities Answer Date Recorded In the past 12 months has [employer], gas, oil, or water company threatened [...] often do you attend chur ch or congregation services? 1 to 4 times per year 11/01/2023 Do you belong to any clubs o r organizations such as jehovah's witness groups, unions, fraternal or athletic groups, or [...] on file Legal Sex Female 2:33 AM RN ADMISSIONS Gender Identity Not on file Sexual Orientation Not on file documented as of this encounter Plan of Treatment Upcoming Encounters Date Type Department Care Team (Late st Contact Info) Description 06/02/2025 3:50 PM RN ADMISSIONS Office Visit [facility] Family Medicine [place] [address], [place] [phone] Danita Smith, RELIEF MASTER [address] [place] [phone] 06/28/2025 11:20 AM RN ADMISSIONS Office Visit [facility] [address] [place] [address] Ora De Anda, PA [address] [place] [address] 07/12/2025 10:45 AM RN ADMISSIONS Office Visit [facility] Sleep Center [address] [address] Dorys Cano, [facility] [address] [address] 09/22/2025 12:20 PM CDT Hospital Encounter [facility] Endoscopy [address] [place] [address] Aayush Jc MD [address] [place] [address] 09/22/2025 12:20 PM CDT - 09/22/2025 12:40 PM CDT Surgery [facility] Endoscopy [address] [place] [address] Aayush Jc MD [address] [facility] [address] [place] [address] COLONOSCOPY 09/29/2025 10:30 AM CDT Office Visit [facility] Gastroenterology- [place] [address] [place] [address] Corin De Leon NP [address] [place] [address] 11/11/2025 10:50 AM CDT Office Visit [facility] Gopal Jacob Rekha [address] [place] [address] Melissa Anand MD [address] [place] [address] 01/04/2026 10:00 AM CDT Office Visit [facility] [address] [facility] [address] [place] [address] Cristóbal Rush MD [address] [facility] [address] [place] [address] Gavi Ballard, LILLIE [address] [facility] [address] [place] [address] Scheduled Procedures Name Priority Associated Diagnoses Date/Ti me COLONOSCOPY Iron deficiency anemia, unspecified iron deficiency anemia type Chronic idiopathic constipation Colon cancer screening 09/22/2025 12:20 PM CDT documented as of this encounter Procedures Procedure Name Priority Date/Time Associated Diagnosis Comments DIABETES EYE EXAM Routine 05/10/2025 11:38 AM RN ADMISSIONS documented in this encounter Results * HM DIABETES EYE EXAM (05/10/2025 11:38 AM RN ADMISSIONS) DIABETIC RETINOPATHY SCREENING Negative [facility] us Zhou Vernon OD HEALTH MAINTENANCE Edited Re ibrahima - Final [facility] CLIA# [id number] [address] [address] documented in this encounter Visit Diagnoses Not on filedocumented in this encounter Additional Health Concerns Assessment Noted Time PHQ-9 Depression Total Score: 4 05/05/20 25 10:00 AM RN ADMISSIONS documented as of this encounter Care Teams Automobile Tire Builder Relationship Specialty Start Date End Date Andrea Ren DO [address] [address] PCP - General Family Practice 08/03/21 documented as of this encounter
--- OUTSIDE RECORDS SUMMARY | 2025-05-16 11:57 | XMS_ITS | Encounter Summary ---
Author Organization [facility] Address [address] [place] [address] Care Team Providers Care Technology Integration Specialist Name Role Phone Randy Ren MD Primary Care Provider [phone] Reason for Visit * Reason Comments Medication Refill Encounter Details Date Type Department Care Team (Late st Contact Info) Description 06/15/2019 Refill [facility] Pain Management Procedures [place] [address] [place] [address] Polina Garcia, DIRECTOR ECONOMIC [address] [facility] [address] [phone] Social History Tobacco Use Types Packs/Day Years Used Date Smoking Tobacco: Former Cigarettes 1 2 0 09/08/1986 - 09/08/1988 Smokeless Tobacco: Never Alcohol Use Standard Drinks/Week Comments No 0 (1 standard drink = 0.6 oz pur e alcohol) Comments No Sex and Gender Information Value Date Recorded Sex Assigned at Not on file Legal Sex 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
--- OUTSIDE RECORDS SUMMARY | 2025-05-16 11:57 | XMS_ITS | Encounter Summary ---
Author Organization [facility] Address [address] [place] [address] Care Team Providers Care Revenue Specialist Name Role Phone Randy Ren MD Primary Care Provider [phone] Encounter Details Date Type Department Care Team (Latest Contact Info) Description 04/24/2004 Outpatient Historical [facility] Gastroenterology- [address] [place] [address] Nehemiah Rodríguez MD [address] [facility] [address] [place] [address] GI SYSTEM SYMPTOMS OTHER (Primary Dx) Social History Tobacco Use Types Packs/Day Years Used Date Smoking Tobacco: Never Assessed Comments Unknown Sex and Gender Information Value Date Recorded Sex Assigned at Not on file Legal Sex Female 6:05 AM DRAWER WAXER Gender Identity Not on file Sexual Orientation [...] Nares 12/15/15 12/16/2015 12/16/2015 07/30/2018 10:47 AM DRAWER WAXER R/O COVID-19 03/01/2020 03/01/2020 03/03/2020 1:01 AM CDT documented as of this encounter Care Teams Revenue Specialist Relationship Specialty Start Date End Date Randy Ren MD [address], [place] [address] PCP - General Family Practice 01/25/15 documented as of this encounter
--- NOTE | 2025-05-16 12:08 | CTR_ITS ---
PROCEDURE INFORMATION: Exam: CT Abdomen And Pelvis With Contrast Exam date and time: 05/16/2025 12:29 PM Age: 54 years old Clinical indication: Abdominal pain; Additional info: Lower abd pain TECHNIQUE: Imaging protocol: Computed tomography of the abdomen and pelvis with contrast. Radiation optimization: All CT scans at this facility use at least one of these dose optimization techniques: automated exposure control; mA and/or kV adjustment per patient size (includes targeted exams where dose is matched to clinical indication); or iterative reconstruction. Contrast material: OMNI 350; Contrast volume: 100 ml; Contrast route: INTRAVENOUS (IV); COMPARISON: CT abdomen pelvis w con* [id number] 01/16/2025 3:49 PM RADIATION DOSE METRICS: Total DLP (mGy-cm): 1208.55 FINDINGS: Lungs: Partially visualized lung bases demonstrates a small calcified granuloma in the left lower lobe. Visualized chest includes: No abnormal findings. Liver: Normal. No mass. Gallbladder and biliary ducts: There are cholecystectomy clips in the right upper quadrant. Pancreas: Normal. No ductal dilation. Spleen: Normal. No splenomegaly. Adrenal glands: Normal. No mass. Kidneys and ureters: Normal. No hydronephrosis. Stomach and bowel: There is no evidence for bowel obstruction. No bowel wall thickening is seen. There is no evidence for colonic inflammation to suggest colitis. There is no acute diverticulitis. There are scattered colonic diverticula. Appendix: No evidence of appendicitis. Intraperitoneal space: Unremarkable. No free air. No significant fluid collection. Vasculature: Unremarkable. No abdominal aortic aneurysm. Lymph nodes: Unremarkable. No enlarged lymph nodes. Urinary bladder: Unremarkable as visualized. Reproductive: Unremarkable as visualized. Bones/joints: Unremarkable. No acute fracture. Soft tissues: Unremarkable. CT/CT abdomen pelvis w con* [id number] IMPRESSION: 1. No acute intra-abdominal or pelvic pathology. 2. Healed granulomatous disease.
--- NOTE | 2025-05-16 12:11 | W.ED.ABDPA2 ---
HPI - Abdominal Pain General: Chief Complaint: Abdominal Pain Stated Complaint: abd pain Time Seen by Provider: 05/16/25 11:54 Source: patient and old records reviewed Mode of arrival: EMS Limitations: no limitations History of Present Illness: Patient is a 54-year-old female who presents to the emergency department by ambulance for lower abdominal pain and profuse diarrhea for the past 4 days. She has a history of C. difficile colitis, was seen here previously in January and took the required regimen of vancomycin. Patient notes that this diarrhea and pain that she is having currently feels identical, and that recently she was on antibiotics 3 weeks ago for a sinus infection and strep. Currently pain 7/10 to her bilateral lower quadrants, to me episodes of diarrhea to count, no blood in her stool. States that it is very foul-smelling, similar to her diagnosis of C. difficile. Has an running intermittent fevers at home, states that she feels severely dehydrated. Mildly tachycardic at this time, afebrile and tired/fatigued. No other symptoms to note, no chest pain or shortness of breath. MD elicited complaint: abdominal pain Pertinent past history: other (c diff colitis) Onset (ago): day(s) Pain Consistency: constant Location: RLQ and LLQ Severity: similar to previous episodes Quality: cramping Context: recent antibiotic use Associated Symptoms: Reports diarrhea and nausea; Denies bloating, change in stool character, chills, constipation, dysuria, fever(s), hematochezia and vomiting Related Data Home Medications ?Medication ?Instructions ?Recorded ?Confirmed acetaminophen 500 mg tablet 500 mg PO QID PRN Pain 12/12/19 05/16/25 cetirizine 10 mg tablet 10 mg PO DAILY 12/12/19 05/16/25 empagliflozin 25 mg tablet 25 mg PO QAM 09/18/21 05/16/25 (Jardiance) linaclotide 290 mcg capsule 290 mcg PO QAM 09/18/21 05/16/25 (Linzess) montelukast 10 mg tablet 10 mg PO DAILY 09/18/21 05/16/25 (Singulair) ropinirole 1 mg tablet 1.5 - 2 mg PO BEDTIME 09/18/21 05/16/25 insulin lispro 100 unit/mL See Rx Instructions .Route .COMPLEX 10/30/24 05/16/25 subcutaneous pen (Humalog KwikPen (U-100) Insulin) nortriptyline 25 mg capsule 75 mg PO BEDTIME 10/30/24 05/16/25 tirzepatide 15 mg/0.5 mL 15 mg SUBCUT Q7D 10/30/24 05/16/25 subcutaneous pen injector (Mounjaro) venlafaxine 75 mg capsule,extended 75 mg PO QAM 10/30/24 05/16/25 release 24 hr albuterol sulfate 90 mcg/actuation 90 mcg inhalation Q4H PRN 10/31/24 05/16/25 aerosol inhaler Shortness Of Breath Or Wheezing azelastine 137 mcg (0.1 %) nasal 2 spray intranasal BID PRN 10/31/24 05/16/25 spray Congestion bumetanide 1 mg tablet 1 mg PO BID 10/31/24 05/16/25 diclofenac sodium 1 % topical gel 2 g topical QID PRN Pain 10/31/24 05/16/25 estradiol 0.01% (0.1 mg/gram) 1 g vaginal PRN 10/31/24 05/16/25 vaginal cream famotidine 40 mg tablet 40 mg PO BEDTIME 10/31/24 05/16/25 ferrous sulfate 325 mg (65 mg 325 mg PO EVERY OTHER DAY 10/31/24 05/16/25 iron) tablet (FeroSul) fesoterodine 4 mg tablet,extended 4 mg PO DAILY 10/31/24 05/16/25 release 24 hr galcanezumab-gnlm 120 mg/mL 120 mg SUBCUT Q30D 10/31/24 05/16/25 subcutaneous pen injector (Emgality Pen) methenamine hippurate 1 gram tablet 1 g PO BID 10/31/24 05/16/25 mometasone 50 mcg/actuation nasal 50 mcg intranasal DAILY 10/31/24 05/16/25 spray prucalopride 2 mg tablet 2 mg PO DAILY 10/31/24 05/16/25 (Motegrity) Saccharomyces boulardii 250 mg 500 mg PO BID 05/16/25 05/16/25 capsule (Florastor) aripiprazole 20 mg tablet 20 mg PO DAILY 05/16/25 05/16/25 atorvastatin 40 mg tablet 40 mg PO BEDTIME 05/16/25 05/16/25 bacitracin 500 unit/gram topical 1 applic topical DAILY 05/16/25 05/16/25 ointment (Bacitraycin Plus) baclofen 5 mg tablet 5 mg PO TID PRN Pain 05/16/25 05/16/25 benztropine 1 mg tablet 1 mg PO BID 05/16/25 05/16/25 cholecalciferol (vitamin D3) 1,250 50,000 mcg PO Q7D 05/16/25 05/16/25 mcg (50,000 unit) capsule docusate sodium 100 mg capsule 200 mg PO BID PRN Constipation 05/16/25 05/16/25 epinephrine 0.3 mg/0.3 mL 0.3 mg IM Q30M PRN Anaphylaxis 05/16/25 05/16/25 injection, auto-injector (EpiPen) hydrocodone 5 mg-acetaminophen 325 1 tab PO Q6H PRN Moderate Pain 05/16/25 05/16/25 mg tablet (Scale Score 5-6) hydroxyzine pamoate 50 mg capsule 50 - 100 mg PO BEDTIME sleep 05/16/25 05/16/25 anxiety insulin glargine 100 unit/mL (3 50 unit SUBCUT BID 05/16/25 05/16/25 mL) subcutaneous pen (Lantus Solostar U-100 Insulin) magnesium oxide 250 mg PO DAILY 05/16/25 05/16/25 metformin 1,000 mg tablet 1,000 mg PO BID 05/16/25 05/16/25 nitroglycerin 0.4 mg sublingual See Rx Instructions .Route .COMPLEX 05/16/25 05/16/25 tablet nystatin 100,000 unit/gram topical 1 applic topical BID PRN Skin 05/16/25 05/16/25 powder Irritation omeprazole 40 mg capsule,delayed 40 mg PO BID 05/16/25 05/16/25 release ondansetron 8 mg disintegrating 8 mg PO Q8H PRN Nausea And Vomiting 05/16/25 05/16/25 tablet oxcarbazepine 150 mg tablet See Rx Instructions .Route .COMPLEX 05/16/25 05/16/25 Previous Rx's ?Medication ?Instructions ?Recorded losartan 50 mg tablet 50 mg PO DAILY #30 tabs 11/02/24 venlafaxine 150 mg 150 mg PO QAM 30 days #30 caps 11/11/24 capsule,extended release 24 hr (Effexor XR) vancomycin 125 mg capsule See Rx Instructions .Route 11/29/24 .COMPLEX #63 caps hydrocodone 5 mg-acetaminophen 325 1 tab PO Q8H PRN pain #12 tabs 05/16/25 mg tablet ondansetron 4 mg disintegrating 4 mg PO TID PRN nausea and 05/16/25 tablet vomiting #30 tabs Allergies Allergy/AdvReac Type Severity Reaction Status Date / Time methocarbamol Allergy Intermediate itching Verified 05/16/25 12:00 Sulfa (Sulfonamide Allergy Unknown Unknown Verified 05/16/25 12:00 Antibiotics) metronidazole (From Flagyl) Allergy ALGY-Hives Verified 05/16/25 12:01 tramadol Allergy ADR-Headach Verified 05/16/25 12:00 e Review of Systems General: Reports: 10 or more systems reviewed and unremarkable except in HPI and below Const: Reports: fatigue and malaise; Denies: fever(s), chills, change in appetite, change in weight or diaphoresis ENMT: Denies: throat pain or hoarseness Card: Denies: chest pain, palpitations or lightheadedness Resp: Denies: dyspnea, productive cough or wheezing GI: Reports: abdominal pain, nausea and diarrhea; Denies: vomiting, constipation, bloating, change in stool character or hematochezia : Denies: flank pain, difficulty voiding, dysuria, urinary frequency or urinary urgency Musc: Denies: neck pain or back pain Skin/Breast: Denies: rash or new lesions Neuro: Denies: headache(s) or dizziness PFSH ED PFSH: Medical History Uncontrolled type 2 diabetes mellitus Diastolic heart failure Pulmonary hypertension COPD (chronic obstructive pulmonary disease) Diabetes Psychiatric care Medication management Sleep apnea treated with nocturnal BiPAP Hypersomnia Major depressive disorder, recurrent, severe with psychotic symptoms Chronic post-traumatic stress disorder Generalized anxiety disorder Surgical History History of back surgery due to a herniated disk. 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 Close due to her mother's health deterioration. She has 3 children and lives her daughter Alice Harris as next of kin decision maker at [phone] Patient wants full code as discussed today with Matthew Marr MD on 11/27/2024 Patient is and currently lives with her nephew and his who help to take care of her Current gender identity: Female Female Reproductive History: Spontaneous abortions: No Physical Exam Const: COMMON NORMALS: patient oriented x3, no limitations, alert and well nourished GENERAL APPEARANCE: cooperative NUTRITIONAL APPEARANCE: obese ORIENTATION/CONSCIOUSNESS: Yes awake OTHER: Tired appearing HENMT: COMMON NORMALS: normocephalic and atraumatic HEAD & SCALP: normocephalic and atraumatic OTHER: Dry oral mucosa Neck/C-Spine: COMMON NORMALS: full ROM, supple and no meningeal signs Resp: COMMON NORMALS: normal respiratory effort, No retractions, No use of accessory muscles and clear to auscultation bilaterally AUSCULTATION: clear to auscultation bilaterally, no crackles, no rales, no rhonchi and no wheezes Cardio: COMMON NORMALS: regular rate, regular rhythm, No gallops present (Cardio), No clicks present (Cardio), No murmurs present (Cardio), No rub (Cardio) and Peripheral pulses 2+ throughout RATE: regular rate RHYTHM: regular rhythm PERIPHERAL PULSES: Peripheral pulses 2+ throughout GI: COMMON NORMALS: no masses INSPECTION: Yes central obesity AUSCULTATION: Yes normoactive bowel sounds PALPATION: Yes Tenderness to palpation present (GI) Details: LLQ and RLQ RECTAL EXAM: deferred Extremity: COMMON NORMALS: normal to inspection and full ROM Neuro: COMMON NORMALS: patient oriented x3, moves all extremities, no focal motor deficits and no sensory deficits noted SENSORIUM/ORIENTATION: Yes alert MENINGEAL SIGNS: Yes no meningeal signs Psych: COMMON NORMALS: mental status grossly normal, cooperative and speech normal SPEECH: Yes normal speech Skin: COMMON NORMALS: no rashes or lesions noted GENERAL SKIN EXAM: no rashes or lesions noted Course Vital Signs: Vital signs: Vital Signs Temperature 99.0 F 05/16/25 11:57 Pulse Rate 114 H 05/16/25 14:00 Respiratory Rate 20 H 05/16/25 12:41 Blood Pressure 144/73 05/16/25 14:00 Pulse Oximetry 91 05/16/25 14:00 Oxygen Delivery Me thod Room Air 05/16/25 14:00 MDM - Abdominal Pain Medical Decision Making Patient presented by ambulance for lower abdominal pain and diarrhea, stating that her symptoms were consistent with prior diagnosis of C. difficile back in January. Of note she was recently on antibiotics couple weeks ago for upper respiratory symptoms. No diarrhea here in the emergency department today, she was mildly tachycardic and dehydrated appearing on exam and is given 2 L of fluids in the emergency department. Abdomen and pelvis CT demonstrates no acute findings. No significant electrolyte derangement, no leukocytosis, and no abnormality on urinalysis. She was unable to give a C. difficile sample, I spoke with her that she can bring the sample back to the lab whenever she is able to go to the bathroom, she states that she does feel better and will left to go home and does not think she needs admitted at this time. I told her if she continues to have diarrhea or generally her condition worsens to return to the emergency department and we will reevaluate for possible observation admission at that time. However states at this time she does feel well enough to go home. Nausea meds and pain meds sent to pharmacy, and she will provide sample to the lab whenever she is able to. Being that she has not had any diarrhea here in the emergency department my suspicion for C. difficile is lower than when she initially presented. Lab Data 05/16/25 12:04 05/16/25 12:04 Labs/Radiology: Radiology Impressions Abdomen/Pelvis CT 05/16/25 12:08 IMPRESSION: 1. No acute intra-abdominal or pelvic pathology. 2. Healed granulomatous disease. Laboratory Results WBC 9.98 10^3/uL (3.29-11.43) 05/16/25 12:04 RBC 4.95 10^6/uL (3.85-5.65) 05/16/25 12:04 Hgb 11.60 g/dL (11.27-16.99) 05/16/25 12:04 Hct 39.2 % (36-47) 05/16/25 12:04 MCV 79.2 fl (85-98) L 05/16/25 12:04 MCH 23.4 pg (27-33) L 05/16/25 12:04 MCHC 29.6 g/dL (30-55) L 05/16/25 12:04 RDW 18.1 % (12.1-15.1) H 05/16/25 12:04 Plt Count 249 10^3/cmm (157-399) 05/16/25 12:04 MPV 10.3 fL (7.4-10.4) 05/16/25 12:04 Neut % (Auto) 86.1 % 05/16/25 12:04 Lymph % (Auto) 7.6 % 05/16/25 12:04 [place] % (Auto) 4.7 % 05/16/25 12:04 Eos % (Auto) 0.9 % 05/16/25 12:04 Baso % (Auto) 0.3 % 05/16/25 12:04 Neut # (Auto) 8.59 10^3/uL (1.8-7.7) H 05/16/25 12:04 Lymph # (Auto) 0.8 10^3/uL (0.8-4.8) 05/16/25 12:04 [place] # (Auto) 0.5 10^3/uL (0.2-0.9) 05/16/25 12:04 Eos # (Auto) 0.1 10^3/uL (0.0-0.8) 05/16/25 12:04 Baso # (Auto) 0.0 10^3/uL (0.0-0.1) 05/16/25 12:04 Nucleated RBC % (auto) 0 % 05/16/25 12:04 Nucleated RBCs # 0.0 /100WBC 05/16/25 12:04 Sodium 137 mmol/L (136-145) 05/16/25 12:04 Potassium 4.1 mmol/L (3.5-5.1) 05/16/25 12:04 Chloride 99 mmol/L (98-107) 05/16/25 12:04 Carbon Dioxide 27 mmol/L (22-29) 05/16/25 12:04 Anion Gap 15.1 (5-19) 05/16/25 12:04 BUN 12 mg/dL (6-20) 05/16/25 12:04 Creatinine 0.9 mg/dL (0.5-0.9) 05/16/25 12:04 GFR Calculation 65.2 mL/min (90-130) L 05/16/25 12:04 Glucose 230 mg/dL (65-115) H 05/16/25 12:04 Calculated Osmolality 291 mOsm/kg (285-295) 05/16/25 12:04 Calcium 9.5 mg/dL (8.5-10.5) 05/16/25 12:04 Total Bilirubin 0.3 mg/dL (0.15-1.2) 05/16/25 12:04 AST 33 U/L (0-32) H 05/16/25 12:04 ALT 33 U/L (0-33) 05/16/25 12:04 Alkaline Phosphatase 178 U/L (35-105) H 05/16/25 12:04 Total Protein 7.9 g/dL (6.6-8.7) 05/16/25 12:04 Albumin 3.9 g/dL (3.5-5.2) 05/16/25 12:04 Globulin 4.0 g/dL (1.3-4.6) 05/16/25 12:04 Lipase 35 U/L (13-60) 05/16/25 12:04 Urine Color Yellow (Yellow) 05/16/25 12:10 Urine Appearance Clear (CLEAR) 05/16/25 12:10 Urine pH 5.0 (5-7) 05/16/25 12:10 Ur Specific [place] 1.025 (1.005-1.030) 05/16/25 12:10 Urine Protein Negative (Negative) 05/16/25 12:10 Urine Glucose (UA) 3+ (Normal) H 05/16/25 12:10 Urine Ketones Negative (Negative) 05/16/25 12:10 Urine Blood Negative (Negative) 05/16/25 12:10 Urine Nitrate Negative (Negative) 05/16/25 12:10 Urine Bilirubin Negative (Negative) 05/16/25 12:10 Urine Urobilinogen 0.2 mg/dL (Negative) 05/16/25 12:10 Ur Leukocyte Esterase Negative (Negative) 05/16/25 12:10 Urine RBC 0-2 /hpf (0-2) 05/16/25 12:10 Urine WBC 0-5 /hpf (0-5) 05/16/25 12:10 Ur Squamous Epith Cells 0-5 /hpf (0-5) 05/16/25 12:10 Amorphous Sediment Not Reportable 05/16/25 12:10 Urine Bacteria None seen /hpf (NONE) 05/16/25 12:10 Hyaline Casts 0.40 /lpf 05/16/25 12:10 All radiology interpretation(s) finalized by discharge Discharge Plan Discharge Patient Disposition: Home Clinical Impression: Viral gastroenteritis Condition: Stable Prescriptions: New ondansetron 4 mg tablet,disintegrating 4 mg PO TID PRN (Reason: nausea and vomiting) Qty: 30 0RF hydrocodone-acetaminophen 5-325 mg tablet 1 tab PO Q8H PRN (Reason: pain) Qty: 12 0RF No Action Jardiance 25 mg tablet 25 mg PO QAM Linzess 290 mcg capsule 290 mcg PO QAM montelukast [Singulair] 10 mg tablet 10 mg PO DAILY ropinirole 1 mg tablet 1.5 - 2 mg PO BEDTIME venlafaxine [Effexor XR] 150 mg capsule,extended release 24hr 150 mg PO QAM 30 Days Qty: 30 5RF Rx Instructions: along with 75mg [id number] total acetaminophen 500 mg Tablet 500 mg PO QID PRN (Reason: Pain) cetirizine 10 mg Tablet 10 mg PO DAILY venlafaxine 75 mg capsule,extended release 24hr 75 mg PO QAM Rx Instructions: along with 150mg rl=355to total insulin lispro [Humalog KwikPen Insulin] 100 unit/mL insulin pen See Rx Instructions .ROUTE .COMPLEX Rx Instructions: Sliding scale dose subcutaneously tid with meals. Less than 100=half dose, 100-140=base dose for food eaten, 20 units small meals, 24 units medium meals, 28 units large meals: 141-180=add 3 units, 181-220=add 6 units, 221-260= add 9 units, 261-300= add 12 units, 301-340= add 15 units, greater than 340= add 18 units. Max daily dose 150 units. Mounjaro 15 mg/0.5 mL pen injector 15 mg SUBCUT Q7D Rx Instructions: Mondays nortriptyline 25 mg capsule 75 mg PO BEDTIME bumetanide 1 mg tablet 1 mg PO BID azelastine 137 mcg (0.1 %) [place],Non-Aerosol 2 spray INTRANASAL BID PRN (Reason: Congestion) Rx Instructions: administer into each nostril albuterol sulfate 90 mcg/actuation HFA aerosol inhaler 90 mcg INHALATION Q4H PRN (Reason: Shortness Of Breath Or Wheezing) famotidine 40 mg tablet 40 mg PO BEDTIME methenamine hippurate 1 gram tablet 1 g PO BID ferrous sulfate [FeroSul] 325 mg (65 mg iron) tablet 325 mg PO EVERY OTHER DAY Rx Instructions: Take with vitamin C mometasone 50 mcg/actuation spray,non-aerosol 50 mcg INTRANASAL DAILY Rx Instructions: Administer 2 sprays in each nostril daily estradiol 0.01 % (0.1 mg/gram) cream 1 g VAGINAL PRN Rx Instructions: See administration instructions diclofenac sodium 1 % gel 2 g TOPICAL QID PRN (Reason: Pain) Rx Instructions: apply to affected area fesoterodine 4 mg Tablet Extended Release 24 Hr 4 mg PO DAILY Emgality Pen 120 mg/mL pen injector 120 mg SUBCUT Q30D prucalopride [Motegrity] 2 mg tablet 2 mg PO DAILY losartan 50 mg tablet 50 mg PO DAILY Qty: 30 0RF vancomycin 125 mg Capsule See Rx Instructions .ROUTE .COMPLEX Qty: 63 0RF Rx Instructions: 125 mcg 4 times daily x 4 days 125 mcg 2 times daily x 7 days 125 mcg once daily x 7days 125 mcg once every 3 days for 4 weeks atorvastatin 40 mg tablet 40 mg PO BEDTIME oxcarbazepine 150 mg tablet See Rx Instructions .ROUTE .COMPLEX Rx Instructions: Take 1 Tablet (150 mg) by mouth daily for 7 days, THEN 1 Tablet (150 mg) 2 times daily for 21 days. hydrocodone-acetaminophen 5-325 mg tablet 1 tab PO Q6H MDD 4 PRN (Reason: Moderate Pain (Scale Score 5-6)) bacitracin [Bacitraycin Plus] 500 unit/gram Ointment 1 applic TOPICAL DAILY omeprazole 40 mg capsule,delayed release(DR/EC) 40 mg PO BID benztropine 1 mg tablet 1 mg PO BID docusate sodium 100 mg capsule 200 mg PO BID PRN (Reason: Constipation) epinephrine [EpiPen] 0.3 mg/0.3 mL Auto-Injector 0.3 mg IM Q30M PRN (Reason: Anaphylaxis) Rx Instructions: do not exceed 12 doses per 24 hrs cholecalciferol (vitamin D3) 1,250 mcg (50,000 unit) Capsule 50,000 mcg PO Q7D Rx Instructions: Wed baclofen 5 mg tablet 5 mg PO TID PRN (Reason: Pain) ondansetron 8 mg tablet,disintegrating 8 mg PO Q8H PRN (Reason: Nausea And Vomiting) metformin 1,000 mg tablet 1,000 mg PO BID nitroglycerin 0.4 mg tablet, sublingual See Rx Instructions .ROUTE .COMPLEX Rx Instructions: Place 1 Tablet (0.4 mg) under tongue every 5 minutes as needed for Chest Pain. nystatin 100,000 unit/gram powder 1 applic TOPICAL BID PRN (Reason: Skin Irritation) magnesium oxide 250 mg magnesium Tablet 250 mg PO DAILY Saccharomyces boulardii [Florastor] 250 mg Capsule 500 mg PO BID hydroxyzine pamoate 50 mg capsule 50 - 100 mg PO BEDTIME aripiprazole 20 mg tablet 20 mg PO DAILY insulin glargine [Lantus Solostar U-100 Insulin] 100 unit/mL (3 mL) insulin pen 50 unit SUBCUT BID Discharge Orders: Discharge ED (Routine); Ordered 05/16/25 Ordered By: Randy Gutierrez Referrals: Andrea Ren DO [Primary Care Provider] Patient Instructions: Patient Portal & Amanda Instructions Activity Restrictions/Additional Instructions: Discharge Instructions Diagnosis: Viral Gastroenteritis What happened during your visit: You were seen in the emergency department for nausea, vomiting, and diarrhea. You received 2 liters of intravenous fluids to help with dehydration. While your symptoms are most consistent with viral gastroenteritis (stomach flu), we were unable to test for Clostridioides difficile (C. diff) infection because you could not provide a stool sample during your visit. Given your history of C. diff infection, we want to make sure we rule this out. Home Care Instructions: Hydration: - Drink plenty of fluids to replace what you've lost through vomiting and diarrhea - Oral rehydration solutions like Pedialyte or Enfalyte are ideal because they contain the right balance of electrolytes and are better than water, juice, or sports drinks - Aim to drink small amounts frequently rather than large amounts at once - You can return to your normal diet 4-6 hours after you feel better, which may help shorten your illness Medications: - For nausea: Take ondansetron (Zofran) as prescribed. This medication is safe and effective at reducing vomiting - For pain: Take hydrocodone-acetaminophen ([place]) 5/325 mg as prescribed for abdominal pain - Avoid taking anti-diarrheal medications unless specifically instructed by your doctor Important Follow-Up: - Bring a stool sample to the laboratory as soon as possible. The order is still active. This is important to rule out C. diff infection given your history - The laboratory can provide you with a collection kit if needed When to Return to the Emergency Department: Seek immediate medical attention if you experience: - Worsening diarrhea (more frequent or more severe) - High fever (temperature over 101?F or 38.3?C) - Severe abdominal pain or pain that gets worse - Blood in your stool - Signs of dehydration: decreased urination, extreme thirst, dizziness when standing, or confusion - Inability to keep down fluids despite taking ondansetron - Any new or concerning symptoms Prevention: - Wash your hands frequently with soap and water for at least 20 seconds, especially after using the bathroom and before eating - Avoid preparing food for others until your symptoms have completely resolved - Clean and disinfect bathroom surfaces regularly Expected Recovery: Most cases of viral gastroenteritis improve within a few days. However, if your symptoms persist beyond 14 days or worsen, contact your primary care doctor or return to the emergency department. Remember: Completing the stool test is important to ensure we're treating you appropriately, especially given your history of C. diff infection. Print Language: Serbian Coding Level of Care Code ED Rotary Adjuster for Margie Pichardo
[2025-05-16 12:15] LABS: Hematocrit 39.2 % (36-47); Hemoglobin 11.60 g/dL (11.27-16.99); Mean Corpuscular HGB Conc 29.6 g/dL (30-55); Mean Corpuscular Hemoglobin 23.4 pg (27-33); Mean Corpuscular Volume 79.2 fl (85-98); Nucleated Red Blood Cells % 0 %; Platelet Count 249 10^3/cmm (157-399); Red Blood Count 4.95 10^6/uL (3.85-5.65); White Blood Count 9.98 10^3/uL (3.29-11.43)
[2025-05-16] MEDS: ondansetron 2 mg/ML SDV 2 mL 4 MG IVP (12:23)
[2025-05-16 12:24] LABS: Glucose Urine UA 3+ (Normal); Nitrate Urine Negative (Negative); Specific Gravity, Urine 1.025 (1.005-1.030)
[2025-05-16 12:26] LABS: Add Urine Microscopic? YES
[2025-05-16 12:32] LABS: Alanine Aminotransferase 33 U/L (0-33); Albumin Level 3.9 g/dL (3.5-5.2); Alkaline Phosphatase 178 U/L (35-105); Anion Gap 15.1 (5-19); Aspartate Amino Transferase 33 U/L (0-32); Blood Urea Nitrogen 12 mg/dL (6-20); Calcium 9.5 mg/dL (8.5-10.5); Carbon Dioxide 27 mmol/L (22-29); Chloride 99 mmol/L (98-107); Globulin 4.0 g/dL (1.3-4.6); Glucose 230 mg/dL (65-115); Lipase 35 U/L (13-60); Osmolality Calculated 291 mOsm/kg (285-295); Potassium 4.1 mmol/L (3.5-5.1); Sodium 137 mmol/L (136-145); Total Protein 7.9 g/dL (6.6-8.7)
[2025-05-16] MEDS: iohexol 350 mg/mL 500 mL Btl (per mL) IV (12:33)
[2025-05-16] MEDS: morphine 4 mg/mL SDV 1 mL IVP (12:41)
--- NOTE | 2025-05-16 13:07 | PC.NURSE ---
Pt aware of need for stool sample. Pt voices understanding. Bedside commode in room.
--- NOTE | 2025-05-16 13:47 | PC.PHAR ---
Pt uses [facility] [phone] to set up medications. Medications updated via current [facility] discharge med list that pt carries with her.
--- NOTE | 2025-05-16 14:46 | PC.NURSE ---
Pt asked again for a stool sample, pt states she isn't ahving any diarrhea at this time.
[2025-05-16 16:17] LABS: C.Diff PCR (Lab) POSITIVE (Negative)
[2025-05-16 17:49] LABS: Clostridioides Difficile Toxin POSITIVE (Negative)
== END 2025-05-16 15:29 | disposition home or self-care (01) ==
PROVIDERS: Emergency Provider Physician Assistant; PCP Family Medicine
DX: A08.4 Viral intestinal infection, unspecified (principal); Z79.4 Long term (current) use of insulin; Z79.84 Long term (current) use of oral hypoglycemic drugs; Z87.891 Personal history of nicotine dependence; J44.9 Chronic obstructive pulmonary disease, unspecified; E11.9 Type 2 diabetes mellitus without complications; I11.0 Hypertensive heart disease with heart failure; I50.30 Unspecified diastolic (congestive) heart failure
CPT/HCPCS: 36415; 74177; 80053; 81001; 83690; 85025; 87324; 87493; 96361; 96374; 96375; 99285; J2270; J2405; J7030